=== PATIENT | male | born 1975 | race Caucasian/White ===

== ENCOUNTER → 2016-08-27 | Outpatient (CLI) | payer SELFPAY ==
[~2016-08-27] MED LIST: ALBU8.5H4 IH; AZTH250C PO; BUTE12CR TP; CLOT15CR4 TP; COLC0.6C3 PO; HYDR-3812 PO; HYDR-3816 PO; INDO50CA PO; KETO200C PO; METH4TAB PO; NAPR550T PO; OXYC-197 PO; PRCD5U PO; PRD20T PO; SULF1TAB35 PO
--- NOTE | 2016-08-27 17:35 | Diagnostic Imaging Report ---
CLINICAL INDICATION: Patient with right-sided facial droop x6 days. Patient unable to close right eye. No history of trauma. EXAM: Axial CT scan of the brain performed without IV contrast. COMPARISON: None. FINDINGS: There is slight loss of mcrae-white matter distinction involving the right parietal lobe and occipital lobe region. It is possible that this is artifactual. Otherwise, the remainder of the brain parenchyma is unremarkable. There is no evidence of acute cerebral infarct, intracranial hemorrhage, or gross mass effect. There is normal mcrae-white matter distinction. The brain parenchymal volume appears appropriate for patient's age. There is no significant midline shift or herniation. There is no evidence of hydrocephalus. The basal cisterns are unremarkable. The skull, extracranial soft tissue, and orbits are unremarkable. The paranasal sinuses are unremarkable. IMPRESSION: 1: There is slight loss of mcrae-white matter distinction involving the right parietal lobe and occipital lobe regions posteriorly. It is possible that this is artifactual from streak artifact. If there is continued concern for acute cerebral infarct, then MRI of the brain would better evaluate. 2: Otherwise, unremarkable CT scan of brain. Dictated by: Dictated on workstation # [id number]
== END ==
LOC: RAD 17:14
DX: R29.810 Facial weakness (principal)
CPT/HCPCS: 70450

== ENCOUNTER 2017-01-11 21:21 | Emergency (ER) | payer SELFPAY ==
[~2017-01-11] VITALS: Ht 170.2 cm; Wt 117.9 kg
--- OUTSIDE RECORDS SUMMARY | 2017-01-11 21:27 | XMS REPORT ---
Author Author DRE KOCH Organization [employer] Address Unknown Phone Unavailable Care Team Providers Care Clerical Office Name Role Phone DRE KOCH CP Unavailable Allergies, Adverse Reactions, Alerts Substance Reaction Event Type N.K.D.A. Info Not Available Non Drug Allergy Problems Problem Type Condition Code Onset Dates Condition Status Problem Acute pharyngitis 462 Active Problem Acute upper respiratory infections of unspecified site 465.9 Active Problem Right foot pain M79.671 Active Assessment Right foot pain M79.671 Active Problem Unspecified urticaria 708.9 Active Problem Dermatophytosis of foot 110.4 Active Medications Medication Code System Code Instructions Start Date End Date Status Dosage Indomethacin [facility] [address]-13 50 MG Orally Twice a day Dec 04, 2014 Dec 14, 2014 1 capsule with food Procedures Procedure Coding System Code Date Office Visit, Est Pt., Level 3 CPT-4 82287 Dec 04, 2014 VENIPUNCT, ROUTINE* CPT-4 30804 Dec 04, 2014 ASSAY OF BLOOD/URIC ACID CPT-4 49568 Dec 04, 2014 Vital Signs Date/Time: Dec 04, 2014 Temperature 97.7 F Weight 242 lbs Height 68.5 in BMI 36.26 Index Blood Pressure Diastolic 70 mmHg Blood Pressure Systolic 126 mmHg Cardiac Monitoring Heart Rate 75 bpm Results Name Result Date Reference Range Unit Abnormality Flag ROUTINE VENIPUNCTURE URIC ACID, SERUM Summary Purpose [employer] Submission
--- NOTE | 2017-01-11 21:40 | ED Cough/URI ---
General Chief Complaint: Cough/Cold/Flu Symptoms Stated Complaint: COUGH Nursing Triage Note: PATIENT STATES HE HAS BEEN COUGHING FOR 1.5 WEEKS. HEADACHE, PAIN WITH COUGHING , THROAT DISCOMFORT. Source: patient Exam Limitations: no limitations History of Present Illness Time seen by provider: 21:28 Initial Comments Here with report of cough over the last 1-1/2 weeks. Complains of sore throat and runny nose. Complains of chills but no fever. Denies nausea or vomiting. Not better in the interim and not better with sbzq-ort-trjhaww medicines. Timing/Duration: week, getting worse Severity/Quality: moderate, dry cough Prior Episodes/Possible Cause: occasional episodes Modifying Factors: Worse With Activity, Worse With Coughing Associated Symptoms: cough, fever/chills, headache, nasal congestion, nasal drainage, sore throat Allergies and Home Medications Allergies Coded Allergies: No Known Drug Allergies (Unverified , 04/02/12) Home Medications Butenafine HCl 12 Gm Cream..g., 12 GM TP BID, #1 Ref 1 Prescribed by: BRI SNYDER on 01/27/16 0344 Clotrimazole/Betamethasone Dip 15 Gm Cream..g., 15 GM TP UD, #1 Ref 0 apply to affected area bid Prescribed by: MATT COLLIER on 10/01/15 2340 Colchicine 0.6 Mg Capsule, 0.6 MG PO UD, #10 Prescribed by: BRI SNYDER on 01/27/16 0344 Hydrocodone/Acetaminophen 1 Each Tablet, 1-2 EACH PO Q4H, #20 Prescribed by: BRI SNYDER on 01/27/16 0321 Indomethacin 50 Mg Capsule, 50 MG PO TID, #30 Ref 0 Prescribed by: MATT COLLIER on 10/01/15 2338 Ketoprofen 200 Mg Cap24h.pel, 200 MG PO DAILY, #30 Prescribed by: BRI SNYDER on 01/27/16 0318 Methylprednisolone 4 Mg Tab.ds.pk, 4 MG PO UD, #1 Prescribed by: BRI SNYDER on 01/27/16 0344 Oxycodone HCl/Acetaminophen 1 Each Tablet, 1 EACH PO Q4H PRN for PAIN, #30 Ref 0 Prescribed by: MATT COLLIER on 10/01/15 2357 Sulfamethoxazole/Trimethoprim 1 Each Tablet, 1 EACH PO BID, #20 Prescribed by: BRI SNYDER on 01/27/16 0345 Constitutional: no symptoms reported, chills, No fever EENTM: nose congestion, throat pain Respiratory: cough, No short of breath Cardiovascular: No chest pain, No edema Gastrointestinal: No nausea, No vomiting Musculoskeletal: No back pain, muscle pain Skin: no symptoms reported Psychiatric/Neurological: Headache (headache is with the cough) Past Juufnif-Rbslhi-Oglxkg Hx Patient Social History Alcohol Use: Denies Use Recreational Drug Use: No Smoking Status: Never a Smoker Type Used: Smokeless Tobacco Recent Foreign Travel: No Contact w/Someone Who Travel: No Recent Infectious Disease Expo: No Recent Hopitalizations: No Seasonal Allergies Seasonal Allergies: No Surgeries History of Surgeries: Yes (kidney stones) Surgeries: Renal Respiratory History of Respiratory Disorde: No Cardiovascular History of Cardiac Disorders: No Neurological History of Neurological Disord: No Reproductive System Hx Reproductive Disorders: No Sexually Transmitted Disease: No HIV/AIDS: No Genitourinary History of Genitourinary Disor: Yes Genitourinary Disorders: Kidney Stones Musculoskeletal History of Musculoskeletal Dis: No Musculoskeletal Disorders: Gout Endocrine History of Endocrine Disorders: No Blood Transfusions Adverse Reaction to a Blood Tr: No Reviewed Nursing Assessment Reviewed/Agree w Nursing PMH: Yes Family Medical History Significant Family History: No Pertinent Family Hx Physical Exam Vital Signs Vital Sign - Last 12Hours 01/11/17 21:26 Temp 97.0 Pulse 67 Resp 20 B/P (MAP) 123/85 Pulse Ox 96 O2 Delivery Room Air Capillary Refill : Less Than 3 Seconds General Appearance: WD/WN, no apparent distress HEENT: pharyngeal erythema (mild), No tonsillar exudate, other (moderate bilateral clear rhinorrhea with moderate nasal congestion and erythema) Neck: full range of motion, supple Respiratory: lungs clear, normal breath sounds Cardiovascular: regular rate, rhythm, no murmur Gastrointestinal: non tender, soft Extremities: non-tender, normal inspection Neurologic/Psychiatric: alert, oriented x 3 Skin: normal color, warm/dry Progress/Results/Core Measures Suspected Sepsis Recent Fever Within 48 Hours: No Infection Criteria Present: None New/Unexplained Altered Menta: No Sepsis Screen: No Definite Risk Sepsis Diagnosis: SIRS Temperature:97.0 Pulse: 67 Respiratory Rate: 20 Blood Pressure 123 /85 Mean: 98 Results/Orders My Orders Orders - ADDY VELASQUEZ MD Chest Pa/Lat (2 View) (01/11/17 21:34) Prednisone Tablet (Deltasone Tablet) (01/11/17 21:45) Medications Given in ED Current Medications Medications Dose Ordered Sig/Tai Route Start Time Stop Time Status Last Admin Dose Admin Prednisone 40 mg ONCE ONCE PO 01/11/17 21:45 01/11/17 21:46 DC 01/11/17 21:40 40 MG Vital Signs/I&O Vital Sign - Last 12Hours 01/11/17 21:26 Temp 97.0 Pulse 67 Resp 20 B/P (MAP) 123/85 Pulse Ox 96 O2 Delivery Room Air Capillary Refill : Less Than 3 Seconds Blood Pressure Mean: 98 Progress Note : Progress Note Seen and evaluated. Chest x-ray ordered. Prednisone 40 mg by mouth ordered. Monitor patient. 2156: Chest x-ray shows no obvious acute infiltrate. Phenergan with codeine cough syrup 5 mL by mouth given. Discharged home with return precautions. Patient verbalize understanding instructions and agreement with plan. Diagnostic Imaging Diagonstic Imaging: Xray Plain Films/CT/US/NM/MRI: chest Comments No obvious acute infiltrate Reviewed: Reviewed by Me Departure Impression Impression: Primary Impression: Upper respiratory infection Qualified Codes: J06.9 - Acute upper respiratory infection, unspecified Additional Impression: Bronchitis Disposition: 01 HOME, SELF-CARE Condition: Stable Departure-Patient Inst. Decision time for Depature: 21:58 Referrals: [facility] (PCP/Family) Primary Care Physician Patient Instructions: Acute Bronchitis, Adult (DC), Viral Upper Respiratory Infection, Adult (DC) Add. Discharge Instructions: All discharge instructions reviewed with patient and/or family. Voiced understanding. Take medications as directed. Follow-up with your DrSanjeev in a few days for recheck. Return for worse pain, fever, vomiting, weakness, breathing problems or other concerns as needed. You may use Afrin nasal spray or the generic, 12 hour relief, 2 sprays to each nostril twice daily for 3 days only and then stop. Do not use for more than 3 days. Drink plenty of fluids. You may take Tylenol and/or ibuprofen as needed for fever or pain control. Scripts Promethazine HCl/Codeine (Promethazine-Codeine Syrup) 118 Ml Syrup 5 ML PO Q4H Y for COUGH, #60 ML Prov: ADDY VELASQUEZ MD 01/11/17 Prednisone (Prednisone) 20 Mg Tab 40 MG PO DAILY, #8 TAB 0 Refills Prov: ADDY VELASQUEZ MD 01/11/17 ADDY VELASQUEZ MD Jan 11, 2017 21:40
[2017-01-11] MEDS ORDERED: predniSONE 20 MG TAB PO ONE (21:45)
[2017-01-11] MEDS ORDERED: CODE118S2 PO (22:00)
[2017-01-11] MEDS ORDERED: PRD20T PO (22:00)
[2017-01-11] MEDS ORDERED: PROMETHAZINE/ CODEINE SYRUP 5 ML UDC PO ONE (22:00)
--- NOTE | 2017-01-11 22:00 | Diagnostic Imaging Report ---
INDICATION: Cough and congestion COMPARISON: 04/02/2012 FINDINGS: Frontal and lateral views of the chest demonstrate normal heart size and pulmonary vascularity. The lungs are clear. There are no signs of infiltrate, pleural effusions or pneumothoraces. The visualized osseous structures show no acute abnormalities. IMPRESSION: 1. No acute process. No signs of infiltrates, effusions or pneumothoraces. Dictated by: Dictated on workstation # [id number]
[2017-01-11 22:07] VITALS: BP 123/85
== END 2017-01-11 22:07 | disposition home or self-care (01) ==
LOC: EDUNIT# 21:21 → ER 21:23
DX: J06.9 Acute upper respiratory infection, unspecified (principal); J40 Bronchitis, not specified as acute or chronic; M10.9 Gout, unspecified; Z87.442 Personal history of urinary calculi
CPT/HCPCS: 71020; 99283

== ENCOUNTER 2017-06-11 19:17 | Emergency (ER) | payer SELFPAY ==
[~2017-06-11] VITALS: Ht 170.2 cm; Wt 113.4 kg
[~2017-06-11 19:17] MED LIST changes: +ACHD5005 PO; +CODE118S2 PO; +HYDR-34 PO; -HYDR-3812 PO; -HYDR-3816 PO
--- OUTSIDE RECORDS SUMMARY | 2017-06-11 19:22 | XMS REPORT ---
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 091524104 Problem Facial droop R29.810 Active 50355233 Problem Dermatophytosis of foot 110.4 Active 6804351 Problem Acute gout involving toe of left foot, unspecified cause M10.9 Active 117658714 Problem Right foot pain M79.671 Active [id number] ALLERGIES No Known Allergies ENCOUNTERS Encounter Location Date Diagnosis [place] [id number] [place] [id number] Aug, Follow-up examination Z09 ; 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 ; Headache, unspecified headache type R51 and Pain, eye, right H57.11 [place] [id number] [place] [address] [id number] Aug, Facial droop R29.810 ; Anesthesia of skin R20.0 and 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 [place] [address] [id number] Aug, [place] [address] [place] [id number] [place] [address] [id number] Jul, Acute gout involving toe of left foot, unspecified cause M10.9 [place] [id number] [place] [address] [id number] Nov, Right foot pain M79.671 [place] [id number] [place] [address] [id number] Aug, Physical exam, pre-employment V70.5 [facility] [address] [place] [id number] [place] [phone] May, [facility] [address] [facility] [id number] [place] [address] May, [facility] [address] [facility] [id number] [phone] Feb, [facility] [address] [facility] [id number], [place] [address] Feb, [facility] [address] [facility] [id number][place] [id number] Sep, [facility] [address] [facility] [id number], [place] [address] Sep, [facility] [address] [facility] [id number][place] [id number] June, IMMUNIZATIONS No Known Immunizations SOCIAL HISTORY Never Assessed REASON FOR VISIT Hx of gout. Pt c/o gout flare in left foot started about Tuesday Chasity YING PLAN OF CARE Activity Details Follow Up 6 Weeks Reason:GOUT VITAL SIGNS Height 68.5 in 2016-08-11 Weight 249 lbs 2016-08-11 Temperature 98 degrees Fahrenheit 2016-08-11 Heart Rate 94 bpm 2016-08-11 Respiratory Rate 18 2016-08-11 BMI 37.31 kg/m2 2016-08-11 Blood pressure systolic 138 mmHg 2016-08-11 Blood pressure diastolic 80 mmHg 2016-08-11 MEDICATIONS Medication Instructions Dosage Frequency Start Date End Date Duration Status Colchicine 0.6 MG Orally Once a day 2 tablet may take 1 tab 1 hr if no relief max 3 tab q 3 d 24h Jul, Active Allopurinol 100 mg Orally twice a day START AFTER CURRENT GOUT ATTACK SUBSIDES 1 tablet Jul, Active Indomethacin 50 mg Orally Twice a day 1 capsule with food or milk as needed for gout pain 12h Jul, Active RESULTS No Results PROCEDURES Procedure Date Ordered Result Body Site ASSAY OF BLOOD/URIC ACID August 11, 2016 SUZAN, ROUTINE* August 11, 2016 INSTRUCTIONS MEDICATIONS ADMINISTERED No Known Medications MEDICAL (GENERAL) HISTORY Type Description Date Medical History kidney stones Surgical History lithotripsy 2009
--- OUTSIDE RECORDS SUMMARY | 2017-06-11 19:22 | XMS REPORT ---
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 052228634 Problem Facial droop R29.810 Active 87215737 Problem Dermatophytosis of foot 110.4 Active 4601511 Problem Acute gout involving toe of left foot, unspecified cause M10.9 Active 016993681 Problem Right foot pain M79.671 Active 17209333 ALLERGIES No Known Allergies ENCOUNTERS Encounter Location Date Diagnosis [place] [id number] [place] [id number] Aug, Follow-up examination Z09 ; 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 ; Headache, unspecified headache type R51 and Pain, eye, right H57.[address] [place] [address] [id number] Aug, Facial droop R29.810 ; Anesthesia of skin R20.0 and 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 [place] [address] [id number] Aug, [place] [id number] [place] [address] [id number] Jul, Acute gout involving toe of left foot, unspecified cause M10.[address] [place] [address] [id number] Nov, Right foot pain M79.[address] [place] [address] [id number] Aug, Physical exam, pre-employment V70.5 [facility] [address] [place] [id number] [address] May, [facility] [address] [facility] [id number] [place] [address] May, [facility] [address] [place] [address] [id number] [phone] Feb, [facility] [address] [facility] [id number] [place] [address] Feb, [facility] [address] [facility] [place] [id number] [phone] Sep, [facility] [address] [facility] [id number] [place] [address] Sep, [facility] [address] [facility] [id number], [place] [phone] June, IMMUNIZATIONS No Known Immunizations SOCIAL HISTORY Never Assessed REASON FOR VISIT Right sided facial drooping x's 7 days, Had a severe headache the day the facial drooping started. Chasity YING PLAN OF CARE Activity Details Follow Up prn Reason: VITAL SIGNS Height 68.5 in 2016-08-27 Weight 250.1 lbs 2016-08-27 Temperature 98.1 degrees Fahrenheit 2016-08-27 Heart Rate 90 bpm 2016-08-27 Respiratory Rate 16 2016-08-27 BMI 37.47 kg/m2 2016-08-27 Blood pressure systolic 128 mmHg 2016-08-27 Blood pressure diastolic 78 mmHg 2016-08-27 MEDICATIONS Medication Instructions Dosage Frequency Start Date End Date Duration Status Acyclovir 800 MG Orally Twice a day 1 tablet 12h Aug, 10 day(s ) Active Allopurinol 100 mg Orally twice a day START AFTER CURRENT GOUT ATTACK SUBSIDES 1 tablet Jul, Active PredniSONE 20 mg Orally Once a day 1 tablet 24h Aug, Aug, 10 days Active RESULTS Name Result Date Reference Range CT Scan : Head/Brain w/o Contrast 2016-08-27 PROCEDURES No Known procedures INSTRUCTIONS MEDICATIONS ADMINISTERED No Known Medications MEDICAL (GENERAL) HISTORY Type Description Date Medical History kidney stones Surgical History lithotripsy 2009
--- OUTSIDE RECORDS SUMMARY | 2017-06-11 19:23 | XMS REPORT | Continuity of Care Document ---
Author Author [facility] Organization [facility] Address Unknown Phone Unavailable Allergies Active Description Code Type Severity Reaction Onset Reported/Identified Relationship to Patient Clinical Status Yes No Known Drug Allergies [id number] Drug Allergy Unknown N/A 04/02/2012 Medications There is no data. Problems Date Dx Coded Attending Type Code Diagnosis Diagnosed By 07/07/2011 LAURA ALSTON DO 110.4 DERMATOPHYTOSIS OF FOOT 07/07/2011 DRE KOCH APRN 110.4 DERMATOPHYTOSIS OF FOOT 04/02/2012 Ot 486 PNEUMONIA, ORGANISM NOS 04/02/2012 Ot 784.0 HEADACHE 04/02/2012 Ot 786.2 COUGH 09/23/2012 RODNEY HENDERSON MD Ot 729.5 PAIN IN LIMB 09/23/2012 RODNEY HENDERSON MD Ot 729.81 SWELLING OF LIMB 09/19/2013 LAURA ALSTON DO 462 PHARYNGITIS ACUTE 09/19/2013 LAURA ALSTON DO 465.9 UPPER RESPIRATORY INFECTION 09/19/2013 DRE KOCH APRN 462 PHARYNGITIS ACUTE 09/19/2013 DRE KOCH APRN 465.9 UPPER RESPIRATORY INFECTION 03/05/2014 DRE KOCH APRN 708.9 URTICARIA/HIVES UNSPEC 10/01/2015 MATT JAQUEZ Ot M10.9 GOUT, UNSPECIFIED 10/01/2015 MATT JAQUEZ Ot M25.571 PAIN IN RIGHT ANKLE AND JOINTS OF RIGHT 10/03/2015 MATT JAQUEZ Ot M10.9 GOUT, UNSPECIFIED 10/03/2015 MATT JAQUEZ Ot M25.571 PAIN IN RIGHT ANKLE AND JOINTS OF RIGHT 01/27/2016 BRI SNYDER DO Ot B35.3 TINEA PEDIS 01/27/2016 BRI SNYDER DO Ot M10.071 IDIOPATHIC GOUT, RIGHT ANKLE AND FOOT 01/27/2016 BRI SNYDER DO Ot M25.571 PAIN IN RIGHT ANKLE AND JOINTS OF RIGHT 01/28/2016 BRI SNYDER DO Ot B35.3 TINEA PEDIS 01/28/2016 BRI SNYDER DO Ot M10.071 IDIOPATHIC GOUT, RIGHT ANKLE AND FOOT 01/28/2016 BRI SNYDER DO Ot M25.571 PAIN IN RIGHT ANKLE AND JOINTS OF RIGHT 08/30/2016 OTHER, UNLISTED Ot R29.810 FACIAL WEAKNESS 01/11/2017 OTHER, UNLISTED Ot R29.810 FACIAL WEAKNESS Procedures Code Description [place] [address] STREP A (IN-HOUSE) 09/19/2013 Results Test Result Range Serum or plasma uric acid measurement (mass/volume) - 10/01/15 22:57 Serum or plasma uric acid measurement (mass/volume) 9.4 mg/dL 2.6-7.2 Complete blood count (CBC) with automated white blood cell (WBC) differential - 01/27/16 02:50 Blood leukocytes automated count (number/volume) 9.3 10*3/uL 4.3-11.0 Blood erythrocytes automated count (number/volume) 5.20 10*6/uL 4.35-5.85 Venous blood hemoglobin measurement (mass/volume) 14.7 g/dL 13.3-17.7 Blood hematocrit (volume fraction) 45 % 40-54 Automated erythrocyte mean corpuscular volume 86 [foz_us] 80-99 Automated erythrocyte mean corpuscular hemoglobin (mass per erythrocyte) 28 pg 25-34 Automated erythrocyte mean corpuscular hemoglobin concentration measurement ( mass/volume) 33 g/dL 32-36 Automated erythrocyte distribution width ratio 14.2 % 10.0-14.5 Automated blood platelet count (count/volume) 220 10*3/uL 130-400 Automated blood platelet mean volume measurement 10.2 [foz_us] 7.4-10.4 Automated blood neutrophils/100 leukocytes 65 % 42-75 Automated blood lymphocytes/100 leukocytes 25 % 12-44 Blood monocytes/100 leukocytes 9 % 0-12 Automated blood eosinophils/100 leukocytes 2 % 0-10 Automated blood basophils/100 leukocytes 0 % 0-10 Blood neutrophils automated count (number/volume) 6.0 10*3 1.8-7.8 Blood lymphocytes automated count (number/volume) 2.3 10*3 1.0-4.0 Blood monocytes automated count (number/volume) 0.8 10*3 0.0-1.0 Automated eosinophil count 0.2 10*3/uL 0.0-0.3 Automated blood basophil count (count/volume) 0.0 10*3/uL 0.0-0.1 Blood lactic acid measurement (moles/volume) - 01/27/16 02:50 Blood lactic acid measurement (moles/volume) 1.5 mmol/L 0.5-2.0 Comprehensive metabolic panel - 01/27/16 02:50 Serum or plasma sodium measurement (moles/volume) 139 mmol/L 135-145 Serum or plasma potassium measurement (moles/volume) 4.2 mmol/L 3.6-5.0 Serum or plasma chloride measurement (moles/volume) 105 mmol/L 98-107 Carbon dioxide 22 mmol/L 21-32 Serum or plasma anion gap determination (moles/volume) 12 mmol/L 5-14 Serum or plasma urea nitrogen measurement (mass/volume) 12 mg/dL 7-18 Serum or plasma creatinine measurement (mass/volume) 0.93 mg/dL 0.60-1.30 Serum or plasma urea nitrogen/creatinine mass ratio 13 NRG Serum or plasma creatinine measurement with calculation of estimated glomerular filtration rate > NRG Serum or plasma glucose measurement (mass/volume) 100 mg/dL 70-105 Serum or plasma calcium measurement (mass/volume) 9.5 mg/dL 8.5-10.1 Serum or plasma total bilirubin measurement (mass/volume) 0.3 mg/dL 0.1-1.0 Serum or plasma alkaline phosphatase measurement (enzymatic activity/volume) 101 U/L 40-136 Serum or plasma aspartate aminotransferase measurement (enzymatic activity/ volume) 27 U/L 5-34 Serum or plasma alanine aminotransferase measurement (enzymatic activity/volume ) 29 U/L 0-55 Serum or plasma protein measurement (mass/volume) 8.3 g/dL 6.4-8.2 Serum or plasma albumin measurement (mass/volume) 4.6 g/dL 3.2-4.5 Serum or plasma uric acid measurement (mass/volume) - 01/27/16 02:50 Serum or plasma uric acid measurement (mass/volume) 7.9 mg/dL 2.6-7.2 Erythrocyte sedimentation rate by westergren method - 01/27/16 02:50 Erythrocyte sedimentation rate by westergren method 9 mm 0-15 Bacterial blood culture - 01/27/16 02:50 Bacterial blood culture NG NRG Bacterial blood culture - 01/27/16 03:07 Bacterial blood culture NG NRG Encounters ACCT No. Visit Date/Time Discharge Status Pt. Type Provider Facility Loc./Unit Complaint [id number] 01/11/2017 21:23:00 01/11/2017 22:07:00 DIS Emergency EVA BRENARD, ADDY Sepulveda [facility] ER COUGH [id number] 08/27/2016 17:14:00 08/27/2016 23:59:59 CLS Outpatient OTHER, UNLISTED [facility] RAD FACIAL DROOP [id number] 01/27/2016 02:22:00 01/27/2016 03:45:00 DIS Emergency BRI SNYDER DO [facility] ER RT FOOT PAIN,GOUT [id number] 10/01/2015 22:06:00 10/01/2015 23:53:00 DIS Emergency MATT JAQUEZ [facility] ER RIGHT FOOT PAIN [id number] 09/23/2012 20:08:00 09/23/2012 21:16:00 DIS Emergency RODNEY HENDERSON MD [facility] ER R FOOT PAIN [id number] 04/02/2012 19:37:00 Document Registration [id number] 03/05/2014 09:05:00 03/05/2014 23:59:59 CLS Outpatient DRE KOCH APRN [id number] 09/19/2013 15:21:00 09/19/2013 23:59:59 CLS Outpatient LAURA ALSTON DO
[2017-06-11] MEDS ORDERED: ALLOPURINOL (19:33)
[2017-06-11] MEDS ORDERED: ORPHENADRINE 60 MG/2 ML (NORFLEX) AMP IM STA (20:05)
[2017-06-11] MEDS ORDERED: KETOROLAC 60 MG/2 ML VIAL IM STA (20:05)
--- NOTE | 2017-06-11 20:13 | ED Back Pain ---
General Chief Complaint: Lower Extremity Stated Complaint: HIP PAIN RADIATING TO KNEE AND BACK,NO INJ Nursing Triage Note: PT TO ED 6 W/ C/O LT HIP PAIN THAT RADIATES TO HIS LT KNEE ET ACROSS HIS LOWER BACK. ONSET X2-3 DAYS. NO KNOWN INJURY Nursing Sepsis Screen: No Definite Risk Source of Information: Patient Exam Limitations: No Limitations History of Present Illness Date Seen by Provider: Jun 11, 2017 Time Seen by Provider: 19:40 Initial Comments 42-year-old male patient presents to the emergency department with complaints of low back pain radiating down the left posterior buttock and left lateral thigh for 2-3 days. Location: Lumbar Spine, Paraspinous Muscles Timing/Duration: 2-3 Days, Other (waxes and wanes) Pain/Injury Location: Back Radiation: Other Method of Injury: Other (denies recent injury. States he did injure his back at the age of 16.) Modifying Factors: Worse With Other (worse with sitting and standing for long periods) Associated Symptoms: muscle spasms; No fever, No weakness, No numbness in legs/ feet, No tingling in legs/feet, No sensory/motor loss; lower back pain; No loss of bladder control, No loss of bowel control Allergies and Home Medications Allergies Coded Allergies: No Known Drug Allergies (Unverified , 04/02/12) Home Medications Cyclobenzaprine HCl 10 Mg Tablet, 10 MG PO Q8H PRN for SPASMS Prescribed by: MATT COLLIER on 06/11/172030 Naproxen 500 Mg Tablet, 500 MG PO BID Prescribed by: MATT COLLIER on 06/11/172030 Prednisone 20 Mg Tab, 40 MG PO DAILY Prescribed by: MATT COLLIER on 06/11/172030 Patient Home Medication List Home Medication List Reviewed: Yes Constitutional: No chills, No diaphoresis, No fever, No malaise EENTM: no symptoms reported Respiratory: no symptoms reported Cardiovascular: no symptoms reported Gastrointestinal: No abdominal pain, No constipation, No diarrhea, No loss of appetite, No melena, No nausea, No vomiting Genitourinary: no symptoms reported Musculoskeletal: see HPI Skin: no symptoms reported Psychiatric/Neurological: Denies Numbness, Denies Paresthesia, Denies Tingling , Denies Weakness All Other Systems Reviewed Negative Unless Noted: Yes (Negative excepted noted.) Past Skqumqv-Imikqv-Mrvdzx Hx Patient Social History Alcohol Use: Occasionally Uses Recreational Drug Use: No Smoking Status: Never a Smoker Type Used: Smokeless Tobacco Recent Foreign Travel: No Contact w/Someone Who Travel: No Recent Infectious Disease Expo: No Recent Hopitalizations: No Physical Abuse: No Sexual Abuse: No Mistreated: No Fear: No Seasonal Allergies Seasonal Allergies: No Past Medical History Surgeries: Yes (kidney stones) Ear Surgery, Renal Respiratory: No Cardiac: No Neurological: No Reproductive Disorders: No Sexually Transmitted Disease: No HIV/AIDS: No Genitourinary: Yes Kidney Stones Gastrointestinal: No Musculoskeletal: No Gout Endocrine: No Cancer: No Psychosocial: No Nursing Suicide Risk Score: 0 Integumentary: No Blood Disorders: No Adverse Reaction/Blood Tranf: No Family Medical History Reviewed Nursing Family Hx No Pertinent Family Hx Physical Exam Vital Signs Vital Signs - First Documented 06/11/17 19:20 Temp 97.9 Pulse 109 Resp 20 B/P (MAP) 139/97 (111) Pulse Ox 99 O2 Delivery Room Air Capillary Refill : Less Than 3 Seconds General Appearance: No Apparent Distress, WD/WN Neck: Full Range of Motion, Normal Inspection, Non Tender, Supple Cardiovascular: Regular Rate, Rhythm, No Edema, No Murmur, Normal Peripheral Pulses Respiratory: Lungs Clear, Normal Breath Sounds, No Accessory Muscle Use, No Respiratory Distress Gastrointestinal: Normal Bowel Sounds, No Organomegaly, No Pulsatile Mass, Non Tender, Soft Back: Normal Inspection; No Decreased Range of Motion; Muscle Spasm (bilateral lumbar paraspinous muscle spasm with left greater than right.), Vertebral Tenderness (mild lumbar vertebral tenderness at the L4 to S1 levels. No deformity or step-off noted. No swelling or evidence of trauma.) Extremity: Normal Capillary Refill, Normal Inspection, Normal Range of Motion, No Calf Tenderness, No Pedal Edema, Other (mild tenderness to palpation of the left buttock and left lateral thigh without evidence of trauma or swelling.) Neurologic/Psychiatric: Alert, Oriented x3, No Motor/Sensory Deficits, Normal Mood/Affect Skin: Normal Color, Warm/Dry Progress/Results/Core Measures My Orders Orders - MATT COLLIER Ketorolac Injection (Toradol Injection) (06/11/17 20:05) Orphenadrine Injection (Norflex Injectio (06/11/17 20:05) Prednisone Tablet (Deltasone Tablet) (06/11/17 20:15) Rx-Naproxen (Rx-Naprosyn) (06/11/17 20:34) Rx-Cyclobenzaprine Tablet (Rx-Flexeril T (06/11/17 20:34) Vital Signs/I&O 06/11/17 19:20 Temp 97.9 Pulse 109 Resp 20 B/P (MAP) 139/97 (111) Pulse Ox 99 O2 Delivery Room Air Blood Pressure Mean: 111 Departure Impression Primary Impression: Lumbar radiculopathy Disposition: HOME, SELF-CARE Condition: Improved Departure-Patient Inst. Decision time for Depature: 20:27 Referrals: [facility] (PCP/Family) Primary Care Physician Patient Instructions: Radiculopathy (DC) Add. Discharge Instructions: All discharge instructions reviewed with patient and/or family. Voiced understanding. Medications as instructed. Tylenol extra strength over-the- counter as directed for pain. Use a heating pad or pack as needed for pain. Avoid heavy lifting, pushing, pulling, twisting, bending, or climbing 3-5 days. Avoid sitting on hard surfaces. Follow-up with your family practitioner for recheck as an outpatient. Your family practitioner may want to order an MRI to further evaluate the lumbar spine as an outpatient. Consider seeing a chiropractor and/or massage therapist. Return to the emergency department for worsened symptoms, numbness in the genitals, bowel incontinence, bladder incontinence, or any other concerns. Scripts Naproxen (Naprosyn) 500 Mg Tablet 500 MG PO BID, #14 TAB 0 Refills Prov: MATT COLLIER 06/11/17 Cyclobenzaprine HCl (Cyclobenzaprine HCl) 10 Mg Tablet 10 MG PO Q8H PRN for SPASMS, #10 TAB 0 Refills Prov: MATT COLLIER 06/11/17 Prednisone (Prednisone) 20 Mg Tab 40 MG PO DAILY, #8 TAB 0 Refills Prov: MATT COLLIER 06/11/17 MATT COLLIER Jun 11, 2017 20:13
[2017-06-11] MEDS ORDERED: predniSONE 20 MG TAB PO ONE (20:15)
[2017-06-11] MEDS ORDERED: NAPR-1071 PO (20:31)
[2017-06-11] MEDS ORDERED: CYCL10TA9 PO (20:31)
[2017-06-11] MEDS ORDERED: PRD20T PO (20:31)
[2017-06-11] MEDS ORDERED: RX-CYCLOBENZAPRINE 10 MG (FLEXERIL) TAB PPK#3 PO STA (20:34)
[2017-06-11] MEDS ORDERED: RX-NAPROXEN (NAPROSYN) 250 MG TAB PPK#4 PO STA (20:34)
[2017-06-11 20:47] VITALS: BP 0/0
== END 2017-06-11 20:47 | disposition home or self-care (01) ==
LOC: EDUNIT# 19:17 → ER 19:18
DX: M54.16 Radiculopathy, lumbar region (principal); M10.9 Gout, unspecified; Z87.442 Personal history of urinary calculi; Z98.890 Other specified postprocedural states
CPT/HCPCS: 99283

== ENCOUNTER 2017-08-21 11:55 | Emergency (ER) | payer SELFPAY ==
[~2017-08-21] VITALS: Ht 170.2 cm; Wt 113.4 kg
[~2017-08-21 11:55] MED LIST changes: +ALLOPURINOL; +CEPH-507 PO; -CODE118S2 PO; +CODE118S4 PO; +CYCL10TA9 PO; +HYDR-757 PO; -INDO50CA PO; +INDO50CA11 PO; +NAPR-1071 PO
[2017-08-21 12:10] VITALS: BP 126/87
--- NOTE | 2017-08-21 12:16 | ED Suture Removal/Wound Check ---
Suture/Wound Re-check Suture Removal/Wound Recheck : Progress Patient returns to the emergency department for suture removal. Physical Exam Vital Signs Vital Signs - First Documented 08/21/17 08/21/17 12:03 12:10 Pulse 73 Resp 18 B/P (MAP) 126/87 Pulse Ox 99 O2 Delivery Room Air Capillary Refill : General Appearance: WD/WN, no apparent distress Extremities: normal capillary refill, other (swelling and tenderness of the distal left third finger with sutures intact. No evidence of cellulitis.) Skin: normal color, warm/dry, other (swelling and tenderness of the distal left third finger with sutures intact. No evidence of cellulitis.) Departure Communication (Admissions) Patient seen and evaluated. Sutures removed at the time of exam without difficulty. Mastisol and Steri-Strips applied followed by an aluminum finger splint. Impression Primary Impression: Encounter for removal of sutures Disposition: HOME, SELF-CARE Condition: Improved Departure-Patient Inst. Decision time for Depature: 12:06 Referrals: [facility] (PCP) Primary Care Physician Patient Instructions: SUTURE REMOVAL-UNCOMPLICATED Add. Discharge Instructions: All discharge instructions reviewed with patient and/or family. Voiced understanding. Shower with antibacterial soap beginning tomorrow morning. Wear the finger splint until released by the orthopedic surgeon. Return to the emergency department for worsened symptoms or any other concerns. MATT COLLIER Aug 21, 2017 12:16
== END 2017-08-21 12:10 | disposition home or self-care (01) ==
LOC: EDUNIT# 11:55 → ER 11:56
DX: S61.213D Laceration without foreign body of left middle finger without damage to nail, subsequent encounter (principal); X58.XXXD Exposure to other specified factors, subsequent encounter

== ENCOUNTER 2017-11-15 01:30 | Emergency (ER) | payer OTHER ==
[~2017-11-15] VITALS: Ht 170.2 cm; Wt 117.0 kg
[~2017-11-15 01:30] MED LIST changes: +HYDR-4226 PO; -HYDR-757 PO; -OXYC-197 PO; +OXYC1TAB87 PO
--- OUTSIDE RECORDS SUMMARY | 2017-11-15 01:36 | XMS REPORT ---
Author Author WANDY PÑEA Organization [facility] Address [address] [place] [address] Care Team Providers Care Java Sdet Name Role Phone WANDY PEÑA Unavailable PROBLEMS Unknown Problems ALLERGIES No Known Allergies ENCOUNTERS Encounter Location Date Diagnosis [place] [id number] [place] [address] [id number] Sep, Open displaced fracture of distal phalanx of left middle finger, sequela S62.633S [place] [id number] [place] [address] [id number] Jul, Open displaced fracture of distal phalanx of left middle finger with routine healing, subsequent encounter S62.633D [place] [id number] [place] [address] [id number] June, Cough R05 ; Acute non-recurrent frontal sinusitis J01.10 and Wheeze R06.2 [place] [id number] [place] [address] [id number] Aug, Follow-up examination Z09 ; 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 ; Headache, unspecified headache type R51 and Pain, eye, right H57.[address] [place] [address] [id number] Aug, Facial droop R29.810 ; Anesthesia of skin R20.0 and 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 [place] [id number] [place] [address] [id number] Aug, [address] [id number] Jul, Acute gout involving toe of left foot, unspecified cause M10.9 [place] [id number] [place] [address] [id number] Nov, Right foot pain M79.671 [facility] [id number] [id number] Aug, Physical exam, pre-employment V70.5 [facility] [address] [address] May, [facility] [address], [place] [address] May, [facility] [id number] [id number] Feb, [facility] [id number] [place] [phone] Feb, [facility] [id number] [place] [address] [id number] Sep, [facility] [address], [place] [address] Sep, [facility] [address] [place] [address] [id number] June, IMMUNIZATIONS No Known Immunizations SOCIAL HISTORY Never Assessed REASON FOR VISIT Chest congestion/cough/sore throat x 1 week, ear pain starting today. nunu Maya PLAN OF CARE Activity Details Follow Up if s/s not improving with PCP or in Clinic Reason: VITAL SIGNS Height 68.5 in 2017-06-28 Weight 248.4 lbs 2017-06-28 Temperature 98.1 degrees Fahrenheit 2017-06-28 Heart Rate 92 bpm 2017-06-28 Respiratory Rate 18 2017-06-28 Oximetry 90 % 2017-06-28 BMI 37.22 kg/m2 2017-06-28 Blood pressure systolic 120 mmHg 2017-06-28 Blood pressure diastolic 80 mmHg 2017-06-28 MEDICATIONS Medication Instructions Dosage Frequency Start Date End Date Duration Status Colchicine 0.6 MG Orally Once a day 2 tablet may take 1 tab 1 hr if no relief max 3 tab q 3 d 24h 28 Jul, 2016 Not-Taking ProAir HFA 108 (90 Base) MCG/ACT Inhalation every 4- 6 hrs 2 puffs as needed June, 30 days Active Acyclovir 800 MG Orally Twice a day 1 tablet 12h Aug, 10 day(s ) Not-Taking Benzonatate 200 mg Orally Three times a day as needed for cough 1 capsule June, June, 07 days Active Azithromycin 250 MG Orally Once a day 2 tablets on the first day, then 1 tablet daily for 4 days 24h June, June, 5 day(s) Active PredniSONE 10 mg Orally Once a day 2 tablet 24h June, June, 05 days Active Allopurinol 100 mg Orally twice a day START AFTER CURRENT GOUT ATTACK SUBSIDES 1 tablet Jul, Not-Taking RESULTS No Results PROCEDURES No Known procedures INSTRUCTIONS MEDICATIONS ADMINISTERED No Known Medications MEDICAL (GENERAL) HISTORY Type Description Date Medical History kidney stones Surgical History lithotripsy 2009
--- OUTSIDE RECORDS SUMMARY | 2017-11-15 01:36 | XMS REPORT ---
Author Author DRE KOCH [facility] Address [address] [place] [address] Care Team Providers Care Rhinologist Name Role Phone DRE KOCH Unavailable PROBLEMS Type Condition ICD9-CM Code RPI00-UE Code Onset Dates Condition Status SNOMED Code Problem Acute gout of right foot, unspecified cause M10.9 Active 259087350 ALLERGIES No Known Allergies ENCOUNTERS Encounter Location Date Diagnosis [place] [id number] [place] [address] [id number] Oct, Acute gout of right foot, unspecified cause M10.9 [address] [id number] [place] [address] [id number] Sep, Open displaced fracture of distal phalanx of left middle finger, sequela S62.633S [place] [id number] [place] [address] [id number] Jul, Open displaced fracture of distal phalanx of left middle finger with routine healing, subsequent encounter S62.633D [place] [id number] [place] [address] [id number] June, Cough R05 ; Acute non-recurrent frontal sinusitis J01.10 and Wheeze R06.[address] [place] [id number] [place] [address] [id number] Aug, Follow-up examination Z09 ; 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 ; Headache, unspecified headache type R51 and Pain, eye, right H57.11 [address] [id number] [place] [address] [id number] 14 Aug, 2016 Facial droop R29.810 ; Anesthesia of skin R20.0 and 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 [place] [id number] [place] [address] [id number] Aug, [place] [id number] [id number] Jul, Acute gout involving toe of left foot, unspecified cause M10.9 [facility] [id number] [place] [address] [id number] Nov, Right foot pain M79.671 [facility] [id number] [id number] Aug, Physical exam, pre-employment V70.5 [facility] [id number] [place] [address] May, [facility] [id number] [place] [address] May, [facility] [address] [place] [address] [id number] Feb, [facility] [id number] [place] [address] Feb, [address] [place] [address] [id number] Sep, [facility] [address] [place] [address] Sep, [address] [place] [address] [id number] June, IMMUNIZATIONS No Known Immunizations SOCIAL HISTORY Never Assessed REASON FOR VISIT finger follow up. Is concerned about the way its healing, has some tingling in fingers Chasity YING PLAN OF CARE Activity Details Follow Up prn Reason: VITAL SIGNS Height 68.5 in 2017-09-14 Weight 250.1 lbs 2017-09-14 Temperature 97 degrees Fahrenheit 2017-09-14 Heart Rate 82 bpm 2017-09-14 Respiratory Rate 16 2017-09-14 BMI 37.47 kg/m2 2017-09-14 Blood pressure systolic 128 mmHg 2017-09-14 Blood pressure diastolic 70 mmHg 2017-09-14 MEDICATIONS Medication Instructions Dosage Frequency Start Date End Date Duration Status Allopurinol 100 mg Orally twice a day START AFTER CURRENT GOUT ATTACK SUBSIDES 1 tablet Jul, Not-Taking ProAir HFA 108 (90 Base) MCG/ACT Inhalation every 4- 6 hrs 2 puffs as needed 15 May, 2018 30 days Not-Taking Acyclovir 800 MG Orally Twice a day 1 tablet 12h Aug, 10 day(s ) Not-Taking Colchicine 0.6 MG Orally Once a day 2 tablet may take 1 tab 1 hr if no relief max 3 tab q 3 d 24h Jul, Not-Taking RESULTS No Results PROCEDURES No Known procedures INSTRUCTIONS MEDICATIONS ADMINISTERED No Known Medications MEDICAL (GENERAL) HISTORY Type Description Date Medical History kidney stones Surgical History lithotripsy 2009
--- OUTSIDE RECORDS SUMMARY | 2017-11-15 01:36 | XMS REPORT ---
Author Author WANDY PEÑA Organization [facility] Address [address] [place] [address] Care Team Providers Care Information Security Analyst Name Role Phone WANDY PEÑA Unavailable PROBLEMS Type Condition ICD9-CM Code RAI04-HD Code Onset Dates Condition Status SNOMED Code Problem Acute gout of right foot, unspecified cause M10.9 Active [id number] ALLERGIES No Known Allergies ENCOUNTERS Encounter Location Date Diagnosis [place] [id number] [place] [address] [id number] Oct, Acute gout of right foot, unspecified cause M10.9 [place] [id number] [place] [address] [id number] Sep, Open displaced fracture of distal phalanx of left middle finger, sequela S62.633S [place] [id number] [place] [address] [id number] Jul, Open displaced fracture of distal phalanx of left middle finger with routine healing, subsequent encounter S62.633D [place] [id number] [place] [address] [id number] June, Cough R05 ; Acute non-recurrent frontal sinusitis J01.10 and Wheeze R06.2 [place] [id number] [place] [address] [id number] Aug, Follow-up examination Z09 ; 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 ; Headache, unspecified headache type R51 and Pain, eye, right H57.11 [address] [id number] [place] [address] [id number] Aug, Facial droop R29.810 ; Anesthesia of skin R20.0 and 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 [place] [id number] [place] [address] [id number] Aug, [facility] [address] [place] [id number] [id number] Jul, Acute gout involving toe of left foot, unspecified cause M10.9 [facility] [id number] [id number] Nov, Right foot pain M79.671 [facility] [id number] [id number] Aug, Physical exam, pre-employment V70.5 [facility] [id number] [place] [address] May, [facility] [id number] [place] [address] May, [facility] [id number] [id number] Feb, [facility] [id number] [place] [address] Feb, [facility] [id number] [phone] Sep, [facility] [id number] [place] [phone] Sep, [facility] [address] [id number] June, IMMUNIZATIONS No Known Immunizations SOCIAL HISTORY Never Assessed REASON FOR VISIT ER f/u- Had lac repair left 3rd finger on Tuesday at [facility]. Fx finger. Has Ortho f/u on 08/[address] PLAN OF CARE Activity Details Follow Up prn, keep ortho fu appt in [address] Lombardi. Reason: VITAL SIGNS Height 68.5 in 2017-08-12 Weight 250.1 lbs 2017-08-12 Temperature 96.9 degrees Fahrenheit 2017-08-12 Heart Rate 88 bpm 2017-08-12 Respiratory Rate 16 2017-08-12 BMI 37.47 kg/m2 2017-08-12 Blood pressure systolic 122 mmHg 2017-08-12 Blood pressure diastolic 70 mmHg 2017-08-12 MEDICATIONS Medication Instructions Dosage Frequency Start Date End Date Duration Status Allopurinol 100 mg Orally twice a day START AFTER CURRENT GOUT ATTACK SUBSIDES 1 tablet Jul, Not-Taking ProAir HFA 108 (90 Base) MCG/ACT Inhalation every 4- 6 hrs 2 puffs as needed June, 30 days Not-Taking Acyclovir 800 MG Orally [...]
--- OUTSIDE RECORDS SUMMARY | 2017-11-15 01:37 | XMS REPORT | Continuity of Care Document ---
Author Author [facility] Address Unknown Phone Unavailable Allergies Active Description Code Type Severity Reaction Onset Reported/Identified Relationship to Patient Clinical Status Yes No Known Drug Allergies [id number] Drug Allergy Unknown N/A 04/02/2012 Medications There is no data. Problems Date Dx Coded Attending Type Code Diagnosis Diagnosed By 07/07/2011 LAURA ALSTON DO 110.4 DERMATOPHYTOSIS OF FOOT 07/07/2011 RDE KOCH APRN 110.4 DERMATOPHYTOSIS OF FOOT 04/02/2012 [...] 01/11/2017 OTHER, UNLISTED Ot R29.810 FACIAL WEAKNESS 06/11/2017 MATT JAQUEZ Ot M10.9 GOUT, UNSPECIFIED 06/11/2017 MATT JAQUEZ Ot M54.16 RADICULOPATHY, LUMBAR REGION 06/11/2017 MATT JAQUEZ Ot M54.5 LOW BACK PAIN 06/11/2017 MATT JAQUEZ Ot Z87.442 PERSONAL HISTORY OF URINARY CALCULI 06/11/2017 MATT JAQUEZ Ot Z98.890 OTHER SPECIFIED POSTPROCEDURAL STATES 06/13/2017 MATT JAQUEZ Ot M10.9 GOUT, UNSPECIFIED 06/13/2017 MATT JAQUEZ L Ot M54.16 RADICULOPATHY, LUMBAR REGION 06/13/2017 MATT JAQUEZ Ot M54.5 LOW BACK PAIN 06/13/2017 MATT JAQUEZ Ot Z87.442 PERSONAL HISTORY OF URINARY CALCULI 06/13/2017 MATT JAQUEZ Ot Z98.890 OTHER SPECIFIED POSTPROCEDURAL STATES 06/17/2017 MATT JAQUEZ Ot M10.9 GOUT, UNSPECIFIED 06/17/2017 MATT JAQUEZ Ot M54.16 RADICULOPATHY, LUMBAR REGION 06/17/2017 MATT JAQUEZ Ot M54.5 LOW BACK PAIN 06/17/2017 MATT JAQUEZ Ot Z87.442 PERSONAL HISTORY OF URINARY CALCULI 06/17/2017 MATT JAQUEZ Ot Z98.890 OTHER SPECIFIED POSTPROCEDURAL STATES 08/08/2017 SPENCER ROMAN APRN Ot M10.9 GOUT, UNSPECIFIED 08/08/2017 SPENCER ROMAN APRN Ot S61.213A LACERATION W/O FB OF L MID FINGER W/O DA 08/08/2017 SPENCER ROMAN APRN Ot S62.633A DISP FX OF DISTAL PHALANX OF LEFT MIDDLE 08/08/2017 SPENCER ROMAN APRN Ot W23.0XXA CAUGHT, CRUSH, JAMMED, OR PINCHED BETW M 08/08/2017 SPENCER ROMAN APRN Ot Z23 ENCOUNTER FOR IMMUNIZATION 08/08/2017 SPENCER ROMAN APRN Ot 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 08/08/2017 SPENCER ROMAN APRN Ot Z87.442 PERSONAL HISTORY OF URINARY CALCULI 08/10/2017 SPENCER ROMAN APRN Ot M10.9 GOUT, UNSPECIFIED 08/10/2017 SPENCER ROMAN APRN Ot S61.213A LACERATION W/O FB OF L MID FINGER W/O DA 08/10/2017 SPENCER ROMAN APRN Ot S62.633A DISP FX OF DISTAL PHALANX OF LEFT MIDDLE 08/10/2017 SPENCER ROMAN APRN Ot W23.0XXA CAUGHT, CRUSH, JAMMED, OR PINCHED BETW M 08/10/2017 SPENCER ROMAN APRN Ot Z23 ENCOUNTER FOR IMMUNIZATION 08/10/2017 SPENCER ORMAN APRN Ot 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 08/10/2017 SPENCER ROMAN APRN Ot Z87.442 PERSONAL HISTORY OF URINARY CALCULI 08/10/2017 MARILIN CANTRELL Ot M10.9 GOUT, UNSPECIFIED 08/10/2017 MARILIN CANTRELL Ot S61.213D LACERATION W/O FB OF L MID FINGER W/O DA 08/10/2017 MARILIN CANTRELL Ot X58.XXXD EXPOSURE TO OTHER SPECIFIED FACTORS, SUB 08/10/2017 MARILIN CANTRELL Ot 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 08/10/2017 MARILIN CANTRELL Ot Z87.442 PERSONAL HISTORY OF URINARY CALCULI 08/16/2017 MARILIN CANTRELL Ot M10.9 GOUT, UNSPECIFIED 08/16/2017 MARILIN CANTRELL Ot S61.213D LACERATION W/O FB OF L MID FINGER W/O DA 08/16/2017 ÓSCAR MARILIN Ot X58.XXXD EXPOSURE TO OTHER SPECIFIED FACTORS, SUB 08/16/2017 MARILIN CANTRELL Ot 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 08/16/2017 ÓSCAR MARILIN Ot Z87.442 PERSONAL HISTORY OF URINARY CALCULI 08/21/2017 MATT JAQUEZ Ot S61.213D LACERATION W/O FB OF L MID FINGER W/O DA 08/21/2017 MATT JAQUEZ Ot X58.XXXD EXPOSURE TO OTHER SPECIFIED FACTORS, SUB 08/23/2017 MATT JAQUEZ Ot S61.213D LACERATION W/O FB OF L MID FINGER W/O DA 08/23/2017 MATT JAQUEZ Ot X58.XXXD EXPOSURE TO OTHER SPECIFIED FACTORS, SUB 08/27/2017 MATT JAQUEZ Ot S61.213D LACERATION W/O FB OF L MID FINGER W/O DA 08/27/2017 MATT JAQUEZ Ot X58.XXXD EXPOSURE TO OTHER SPECIFIED FACTORS, SUB Procedures Code [place] [id number] [facility] A (IN-HOUSE) 09/19/2013 Results Test Result Range [...] 01/27/16 03:07 Bacterial blood culture NG NRG URIC ACID, SERUM - 10/26/17 17:00 URIC ACID 8.2 mg/dL 4.0-8.0 Encounters ACCT No. Visit Date/Time Discharge Status Pt. Type Provider Facility Loc./Unit Complaint [id number] 03/05/2014 09:05:00 03/05/2014 23:59:59 CLS Outpatient DRE KOCH APRN [id number] 09/19/2013 15:21:00 09/19/2013 23:59:59 CLS Outpatient GAMALIEL CID LAURA K [id number] 08/21/2017 11:56:00 08/21/2017 12:10:00 DIS Outpatient MATT JAQUEZ [facility] ER SUTURE REMOVAL [id number] 08/10/2017 12:05:00 08/10/2017 13:14:00 DIS Outpatient MARILIN CANTRELL [facility] ER WOUND CHECK [id number] 08/08/2017 12:15:00 08/08/2017 14:26:00 DIS Emergency SPENCER ROMAN APRN [facility] ER LEFT MIDDLE FINGER INJURY [id number] 06/11/2017 19:18:00 06/11/2017 20:47:00 DIS Outpatient MATT JAQUEZ [facility] ER HIP PAIN RADIATING TO KNEE AND BACK,NO INJ [id number] 01/11/2017 21:23:00 01/11/2017 22:07:00 DIS Emergency EVA BERNARD, ADDY Sepulveda [facility] ER COUGH [id number] 08/27/2016 17:14:00 08/27/2016 23:59:59 CLS Outpatient OTHER, UNLISTED [facility] RAD FACIAL DROOP [id number] 01/27/2016 02:22:00 01/27/2016 03:45:00 DIS Emergency BRI SNYDER DO K [facility] ER RT FOOT PAIN,GOUT [id number] 10/01/2015 22:06:00 10/01/2015 23:53:00 DIS Emergency MATT JAQUEZ [facility] ER RIGHT FOOT PAIN [id number] 09/23/2012 20:08:00 09/23/2012 21:16:00 DIS Emergency SANTIAGO BERNARD, RODNEY Choi [facility] ER R FOOT PAIN [id number] 04/02/2012 19:37:00 Document Registration [id number] 09/14/2017 14:20:00 09/14/2017 23:59:59 CLS Outpatient DRE KOCH APRN [facility] [id number] 10/26/2017 16:00:00 Document Registration
[2017-11-15] MEDS ORDERED: L.E.T. SYRINGE 5 ML ONE (01:40)
[2017-11-15] MEDS ORDERED: LIDOCAINE 1% INJ 20 ML 20 ML VIAL INJ ONE (01:45)
--- NOTE | 2017-11-15 03:01 | ED Head Injury ---
General Chief Complaint: Laceration Stated Complaint: HEAD LAC Source: patient Exam Limitations: no limitations History of Present Illness Date Seen by Provider: Nov 15, 2017 Time Seen by Provider: 01:37 Initial Comments Here with report of head injury. He was at work when a SYSTEM broke apart and struck him in the head. This causes had the pitchfork. Initially described a little bit of neck pain but has full range of motion without any significant pain. Pain mostly to the top of the head. Denies loss of consciousness. He did have bleeding. Last tetanus shot a few months ago. Occurred: this morning (approximately 30 minutes prior to arrival) Severity: moderate Location: frontal Method of Injury: direct blow Loss of Consciousness: no loss of consciousness Associated Systoms: Headaches; No Nausea/Vomiting Allergies and Home Medications Allergies Coded Allergies: No Known Drug Allergies (Unverified , 04/02/12) Home Medications Cephalexin 500 Mg Capsule, 500 MG PO TID Prescribed by: SPENCER ROMAN on 08/08/17 1410 Cyclobenzaprine HCl 10 Mg Tablet, 10 MG PO Q8H PRN for SPASMS Prescribed by: MATT COLLIER on 06/11/172030 Hydrocodone/Acetaminophen 1 Each Tablet, 1 EACH PO Q4H Prescribed by: SPENCER ROMAN on 08/08/17 1410 Naproxen 500 Mg Tablet, 500 MG PO BID Prescribed by: MATT COLLIER on 06/11/172030 Prednisone 20 Mg Tab, 40 MG PO DAILY Prescribed by: MATT COLLIER on 06/11/172030 Patient Home Medication List Home Medication List Reviewed: Yes Review of Systems Review of Systems Constitutional: see HPI, dizziness; No fever, No weakness Eyes: No Symptoms Reported Ears, Nose, Mouth, Throat: no symptoms reported Respiratory: no symptoms reported Cardiovascular: no symptoms reported Skin: see HPI, change in color, lesions Psychiatric/Neurological: Headache; Denies Weakness Past Gtlbmrm-Yltszz-Qdyxxd Hx Past Med/Social Hx: Reviewed Nursing Past Med/Soc Hx Patient Social History Alcohol Use: Denies Use Recreational Drug Use: No Type Used: Smokeless Tobacco Recent Foreign Travel: No Contact w/Someone Who Travel: No Recent Hopitalizations: No Seasonal Allergies Seasonal Allergies: No Past Medical History Surgeries: Yes (kidney stones) Ear Surgery, Renal Respiratory: No Cardiac: No Neurological: No Reproductive Disorders: No Sexually Transmitted Disease: No HIV/AIDS: No Genitourinary: Yes Kidney Stones Gastrointestinal: No Musculoskeletal: No Gout Endocrine: No Cancer: No Psychosocial: No Integumentary: No Blood Disorders: No Adverse Reaction/Blood Tranf: No Family Medical History Reviewed Nursing Family Hx No Pertinent Family Hx Physical Exam Vital Signs Capillary Refill : Height, Weight, BMI Height: 5'7.00" Weight: 250lbs. 0oz. 113.432185jj; 35.15 BMI Method:Stated General Appearance: WD/WN, no apparent distress HEENT: PERRL/EOMI, TMs normal, pharynx normal Neck: non-tender, full range of motion, supple, normal inspection Cardiovascular: regular rate, rhythm, no murmur Respiratory: lungs clear, normal breath sounds Psychiatric: alert, oriented x 3 Crainal Nerves: normal hearing, normal speech, PERRL Coordination/Gait: normal gait Skin: warm/dry, other (for centimeter vertical laceration to forehead centrally ) [place] Coma Score Best Eye Response: (4) Open Spontaneously Best Verbal Response: (5) Oriented Best Motor Response: (6) Obeys Commands Procedures/Interventions Wound Location: Face Other Wound Location Forehead centrally Wound Length (cm): 4 Wound's Depth, Shape: superficial, irregular Wound Explored: contaminated Irrigated w/ Saline (ccs): 100 Betadine Prep?: Yes (Betasept) Anesthesia: 1% Lidocaine Volume Anesthetic (ccs): 8 Wound Debrided: minimal Suture: Prolene Suture Size: 5-0 Number of Sutures: 6 Layer Closure?: 1 Number Deep Layer Sutures: 0 Sterile Dressing Applied?: Yes Progress Cover with antibiotic ointment and dressing afterwards. Tolerated procedure well with no complications. Progress/Results/Core Measures Results/Orders My Orders Orders - ADDY VELASQUEZ MD Lidocaine 1% Inj 20 Ml (Xylocaine 1% Inj (11/15/17 01:45) Let Solution (Let Solution) (11/15/17 01:40) Ct Head Wo (11/15/17 01:49) Progress Progress Note : Progress Note Seen and evaluated. LET to wound after cleaning. CT head ordered. Wound closure. Discharged home with return precautions. Patient verbalize understanding instructions and agreement with plan. Diagnostic Imaging Diagonstic Imaging: CT Plain Films/CT/US/NM/MRI: head Comments Frontal scalp swelling. No evidence of foreign body, fracture or intracranial hemorrhage. Reviewed: Reviewed Night Hawk Study, Reviewed by Me Departure Impression Primary Impression: Forehead laceration Qualified Codes: S01.81XA - Laceration without foreign body of other part of head, initial encounter Additional Impression: Concussion without loss of consciousness Qualified Codes: S06.0X0A - Concussion without loss of consciousness, initial encounter Disposition: 01 HOME, SELF-CARE Condition: Improved Departure-Patient Inst. Referrals: [facility] (PCP) Primary Care Physician OCCUPATIONAL [facility]ERAPY [facility] Patient Instructions: Concussion, Adult (DC), Laceration Repair With Stitches ( DC) Add. Discharge Instructions: All discharge instructions reviewed with patient and/or family. Voiced understanding. Rest today. Light duty at work for 2 days. Follow-up with occupational health. Call in the morning for appointment and follow-up time. You may shower. Gently rinse and patent wound dry. You should use antibiotic ointment and dressing over the wound and change that twice daily. Sutures out in 7 days. Return to the emergency department for suture removal. Return for worse pain, swelling, foul-smelling drainage, fever, vision or balance problems, vomiting or other concerns as needed. You may take Tylenol/acetaminophen 1000 mg every 8 hours as needed for pain. You may take ibuprofen 600 mg every 8 hours as needed for pain. You should follow-up with your doctor for recheck of your blood pressure. ADDY VELASQUEZ MD Nov 15, 2017 03:01
[2017-11-15 04:00] VITALS: BP 138/70
[2017-11-15] MEDS ORDERED: RX-HYDROCODONE/APAP 5/325 MG #4 TAB PK PO PRN (04:00)
[2017-11-15] MEDS ORDERED: RX-OXYCODONE/APAP 5-325 MG #4 TAB PK PO PRN (04:00)
--- NOTE | 2017-11-15 05:38 | Diagnostic Imaging Report ---
INDICATION: Trauma to head TECHNIQUE: Routine non contrast-enhanced axial images were obtained from the skull base to the vertex. COMPARISON: 08/27/2016 FINDINGS: The ventricles and cortical sulci are normal in size and contour. There is no midline shift or mass-effect. No acute intra-axial hemorrhage is seen. There are no abnormal areas of increased or decreased density to suggest acute hemorrhage or edema. No extra-axial masses or collections are present. Subtle soft tissue defect is noted midline, anteriorly. No unexpected radiopaque foreign bodies are seen. The underlying bony calvarium is intact. The visualized paranasal sinuses are unremarkable. The mastoid air cells are clear. IMPRESSION: 1. No acute intracranial abnormality. No CT evidence of mass, acute infarct or intracranial hemorrhage. Dictated by: Dictated on workstation # [id number]
== END 2017-11-15 04:00 | disposition home or self-care (01) ==
LOC: EDUNIT# 01:30 → ER 01:32
DX: S01.81XA Laceration without foreign body of other part of head, initial encounter (principal); S06.0X0A Concussion without loss of consciousness, initial encounter; M10.9 Gout, unspecified; R40.2142 Coma scale, eyes open, spontaneous, at arrival to emergency department; R40.2252 Coma scale, best verbal response, oriented, at arrival to emergency department; R40.2362 Coma scale, best motor response, obeys commands, at arrival to emergency department; Z79.52 Long term (current) use of systemic steroids; Z87.442 Personal history of urinary calculi; W22.09XA Striking against other stationary object, initial encounter; Y92.59 Other trade areas as the place of occurrence of the external cause; Y99.0 Civilian activity done for income or pay
CPT/HCPCS: 12042; 70450

== ENCOUNTER 2018-01-16 12:01 | Emergency (ER) | payer OTHER ==
[~2018-01-16] VITALS: Ht 170.2 cm; Wt 117.9 kg
[2018-01-16] MEDS ORDERED: MECLIZINE 25 MG (ANTIVERT) TAB PO ONE (12:30)
--- NOTE | 2018-01-16 12:33 | ED Head Injury ---
General Chief Complaint: Dizziness/Syncope Stated Complaint: HEAD INJ;DIZZINESS Source: patient Exam Limitations: no limitations History of Present Illness Date Seen by Provider: Jan 16, 2018 Time Seen by Provider: 12:29 Initial Comments To ER with reports of a headache on the top of his head midline, dizziness. He was seen here on November 15 for a work-related injury when something broke at work and struck him in the front of the head. He had a normal noncontrast CT of the head and C-spine at that time, the laceration to the frontal scalp was sutured. He's had intermittent troubles with dizziness and headache but the headache has never been as intense as it is today nor the dizziness. He was taking meclizine at home but ran out of this a few days ago. He was subsequently fired from his job he states. Occurred: this morning Severity: moderate Location: occipital, parietal Method of Injury: direct blow Loss of Consciousness: no loss of consciousness Associated Systoms: Headaches Allergies and Home Medications Allergies Coded Allergies: No Known Drug Allergies (Unverified , 04/02/12) Home Medications Cephalexin 500 Mg Capsule, 500 MG PO TID Prescribed by: SPENCER ROMAN on 08/08/17 1410 Cyclobenzaprine HCl 10 Mg Tablet, 10 MG PO Q8H PRN for SPASMS Prescribed by: MATT COLLIER on 06/11/172030 Hydrocodone/Acetaminophen 1 Each Tablet, 1 EACH PO Q4H Prescribed by: SPENCER ROMAN on 08/08/17 1410 Naproxen 500 Mg Tablet, 500 MG PO BID Prescribed by: MATT COLLIER on 06/11/172030 Prednisone 20 Mg Tab, 40 MG PO DAILY Prescribed by: MATT COLLIER on 06/11/172030 Patient Home Medication List Home Medication List Reviewed: Yes Review of Systems Review of Systems Constitutional: see HPI Eyes: No Symptoms Reported Ears, Nose, Mouth, Throat: no symptoms reported Respiratory: no symptoms reported Cardiovascular: no symptoms reported Genitourinary: no symptoms reported Musculoskeletal: no symptoms reported Skin: no symptoms reported Psychiatric/Neurological: See HPI, Headache Endocrine: No Symptoms Reported Past Uyacfcb-Xfbase-Ubdxvj Hx Patient Social History Type Used: Smokeless Tobacco Recent Hopitalizations: No Seasonal Allergies Seasonal Allergies: No Past Medical History Surgeries: Yes (kidney stones) Ear Surgery, Renal Respiratory: No Cardiac: No Neurological: No Reproductive Disorders: No Sexually Transmitted Disease: No HIV/AIDS: No Genitourinary: Yes Kidney Stones Gastrointestinal: No Musculoskeletal: No Gout Endocrine: No Cancer: No Psychosocial: No Integumentary: No Blood Disorders: No Adverse Reaction/Blood Tranf: No Family Medical History No Pertinent Family Hx Physical Exam Vital Signs Capillary Refill : Height, Weight, BMI Height: 5'7.00" Weight: 258lbs. 0oz. 117.199242ua; 35.15 BMI Method:Stated General Appearance: WD/WN, no apparent distress HEENT: PERRL/EOMI, normal ENT inspection, TMs normal, other (no nystagmus) Neck: non-tender, full range of motion Respiratory: no respiratory distress, no accessory muscle use Gastrointestinal: normal bowel sounds, non tender Extremities: normal range of motion, non-tender Psychiatric: alert, oriented x 3 Crainal Nerves: normal hearing, normal speech, PERRL Skin: normal color, warm/dry [place] Coma Score Best Eye Response: (4) Open Spontaneously Best Verbal Response: (5) Oriented Best Motor Response: (6) Obeys Commands [place] Total: 15 Procedures/Interventions Suture Size: 5-0 Progress/Results/Core Measures Results/Orders My Orders Orders - SPENCER ROMAN APRN Ct Head Wo (01/16/18 12:27) Meclizine Tablet (Antivert Tablet) (01/16/18 12:30) Departure Impression Primary Impression: Post concussion syndrome Disposition: 01 HOME, SELF-CARE Condition: Stable Departure-Patient Inst. Decision time for Depature: 12:31 Referrals: [facility] (PCP/Family) Primary Care Physician Patient Instructions: Concussion in Adults Add. Discharge Instructions: 1. Follow-up with your primary care provider to discuss referral to neurologist. Unfortunately, these postconcussion syndromes which includes headache dizziness sometimes fatigue, sometimes irritability, sometimes memory/ concentration impairment can last for 3-6 months. All discharge instructions reviewed with patient and/or family. Voiced understanding. SPENCER ROMAN APRN Jan 16, 2018 12:33
--- NOTE | 2018-01-16 12:45 | Diagnostic Imaging Report ---
PROCEDURE: CT head without contrast. TECHNIQUE: Multiple contiguous axial images were obtained through the brain without the use of intravenous contrast. INDICATION: Head injury and severe headache. COMPARISON: Comparison is made with prior head CT from 11/15/2017. FINDINGS: The ventricles and sulci are within normal limits. No sulcal effacement is identified. There is no midline shift. No acute intra-axial or extra-axial hemorrhage is detected. Cisterns are patent. Visualized paranasal sinuses are clear. IMPRESSION: No acute intracranial process is detected. Dictated by: Dictated on workstation # [id number]
[2018-01-16] MEDS ORDERED: ACET/BUTAL/CAFF (FIORICET) TAB PO PRN (13:00)
[2018-01-16 13:06] VITALS: BP 157/97
--- OUTSIDE RECORDS SUMMARY | 2018-01-16 20:17 | XMS REPORT | Continuity of Care Document ---
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 08/08/2017 SPENCER [...] Ot Z23 ENCOUNTER FOR IMMUNIZATION 08/10/2017 SPENCER ROMAN APRN Ot Z79.52 [facility] (CURRENT) USE OF SYSTEMIC STER 08/10/2017 SPENCER ROMAN APRN Ot Z87.442 PERSONAL HISTORY OF URINARY CALCULI 08/10/2017 MARIILN CANTRELL Ot M10.9 GOUT, UNSPECIFIED 08/10/2017 MARILIN CANTRELL Ot S61.213D LACERATION W/O FB OF L MID FINGER W/O DA 08/10/2017 MARILIN CANTRELL Ot X58.XXXD EXPOSURE TO OTHER SPECIFIED FACTORS, SUB 08/10/2017 MARILIN CANTRELL Ot Z79.52 [facility] (CURRENT) USE OF SYSTEMIC STER 08/10/2017 MARILIN CANTRELL Ot Z87.442 PERSONAL HISTORY OF URINARY CALCULI 08/16/2017 MARILIN CANTRELL Ot M10.9 GOUT, UNSPECIFIED 08/16/2017 MARILIN CANTRELL Ot S61.213D LACERATION W/O FB OF L MID FINGER W/O DA 08/16/2017 ÓSCAR MARILIN Ot X58.XXXD EXPOSURE TO OTHER SPECIFIED FACTORS, SUB 08/16/2017 MARILIN CANTRELL Ot Z79.52 [facility] (CURRENT) USE OF SYSTEMIC STER 08/16/2017 ÓSCAR [...] Procedures Code Description [place] [address] [facility] A (IN-HOUSE) 09/19/2013 Results Test Result [...] Status Pt. Type Provider Facility Loc./Unit Complaint [id number] 03/05/2014 09:05:00 03/05/2014 23:59:59 CLS Outpatient DRE KOCH APRN [id number] 09/19/2013 15:21:00 09/19/2013 23:59:59 CLS Outpatient GAMALIEL CID LAURA Arabella [id number] 11/15/2017 01:32:00 11/15/2017 04:00:00 DIS Emergency ADDY VELASQUEZ MD [facility] ER HEAD LAC [id number] 08/21/2017 11:56:00 08/21/2017 12:10:00 DIS Emergency MATT JAQUEZ [facility] ER SUTURE REMOVAL [id number] 08/10/2017 12:05:00 08/10/2017 13:14:00 DIS Emergency MARILIN CANTRELL [facility] ER WOUND CHECK [id number] 08/08/2017 12:15:00 08/08/2017 14:26:00 DIS Emergency SPENCER ROMAN APRN [facility] ER LEFT MIDDLE FINGER INJURY [id number] 06/11/2017 19:18:00 06/11/2017 20:47:00 DIS Emergency MATT JAQUEZ [facility] ER HIP PAIN RADIATING TO KNEE AND BACK,NO INJ [id number] 01/11/2017 21:23:00 01/11/2017 22:07:00 DIS Emergency ADDY VELASQUEZ MD [facility] ER COUGH [id number] 08/27/2016 17:14:00 08/27/2016 23:59:59 CLS Outpatient OTHER, UNLISTED [facility] RAD FACIAL DROOP [id number] 01/27/2016 02:22:00 01/27/2016 03:45:00 DIS Emergency BRI SNYDER DO [facility] ER RT FOOT PAIN,GOUT [id number] 10/01/2015 22:06:00 10/01/2015 23:53:00 DIS Emergency MATT JAQUEZ [facility] ER RIGHT FOOT PAIN [id number] 09/23/2012 20:08:00 09/23/2012 21:16:00 DIS Emergency RODNEY HENDERSON MD [facility] ER R FOOT PAIN [id number] 04/02/2012 19:37:00 Document Registration [id number] 09/14/2017 14:20:00 09/14/2017 23:59:59 [facility] [place] [id number] 10/26/2017 16:00:00 Document Registration
== END 2018-01-16 13:11 | disposition home or self-care (01) ==
LOC: EDUNIT# 12:01 → ER 12:02
DX: F07.81 Postconcussional syndrome (principal); M10.9 Gout, unspecified; R40.2142 Coma scale, eyes open, spontaneous, at arrival to emergency department; R40.2252 Coma scale, best verbal response, oriented, at arrival to emergency department; R40.2362 Coma scale, best motor response, obeys commands, at arrival to emergency department; Z79.52 Long term (current) use of systemic steroids; Z87.442 Personal history of urinary calculi
CPT/HCPCS: 70450

== ENCOUNTER 2018-03-20 18:35 | Emergency (ER) | payer OTHER ==
[~2018-03-20] VITALS: Ht 170.2 cm; Wt 117.9 kg
--- OUTSIDE RECORDS SUMMARY | 2018-03-20 18:40 | XMS REPORT ---
Author Author DRE KOCH [facility] Address [address] [place] [address] Care Team Providers Care Senior Electronics Technician Name Role Phone DRE KOCH Unavailable PROBLEMS Type Condition ICD9-CM Code YDB44-YS Code Onset Dates Condition Status SNOMED Code Problem Acute gout of right foot, unspecified cause M10.9 Active 040780106 ALLERGIES No Information ENCOUNTERS Encounter Location Date Diagnosis [place] [id number] [place] [address] [id number] Jan, Acute gout involving toe of left foot, unspecified cause M10.9 and Acute gout of right foot, unspecified cause M10.9 [place] [id number] [place] [address] [id number] Oct, Acute gout of right foot, unspecified cause M10.9 [place] [id number] [place] [address] [id number] Sep, Open displaced fracture of distal phalanx of left middle finger, sequela S62.633S [place] [id number] [place] [address] [id number] Jul, Open displaced fracture of distal phalanx of left middle finger with routine healing, subsequent encounter S62.633D [place] [id number] [place] [address] [id number] June, Cough R05 ; Acute non-recurrent frontal sinusitis J01.10 and Wheeze R06.2 [place] [id number] [place] [address] [id number] Aug, Follow-up examination Z09 ; 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 ; Headache, unspecified headache type R51 and Pain, eye, right H57.11 [place] [id number] [place] [address] [id number] Aug, Facial droop R29.810 ; Anesthesia of skin R20.0 and 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 [address] [place] [place] [id number] [place] [phone] May, [address] [place] [address] [id number] Feb, [facility] [address] [place] [id number] [place] [phone] Feb, [id number] [place] [address] [id number] Sep, [facility] [id number] [place] [phone] Sep, [address] [id number] June, IMMUNIZATIONS No Known Immunizations SOCIAL HISTORY Never Assessed REASON FOR VISIT meds for gout PLAN OF CARE VITAL SIGNS MEDICATIONS Medication Instructions Dosage Frequency Start Date End Date Duration Status Allopurinol 100 mg Orally 2 times a day 1 tablet 12h Jul, 30 days Active Etodolac 500 mg Orally Twice a day 1 tablet with food 12h Jan, 10 days Active RESULTS No Results PROCEDURES No Known procedures INSTRUCTIONS MEDICATIONS ADMINISTERED No Known Medications MEDICAL (GENERAL) HISTORY Type Description Date Medical History kidney stones Surgical History lithotripsy 2009
--- OUTSIDE RECORDS SUMMARY | 2018-03-20 18:41 | XMS REPORT | Continuity of Care Document ---
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 08/08/2017 SPENCER [...] IMMUNIZATION 08/10/2017 SPENCER ROMAN APRN Ot Z79.52 LONG-TERM (CURRENT) USE OF SYSTEMIC STER 08/10/2017 SPENCER ROMAN APRN Ot Z87.442 PERSONAL HISTORY OF URINARY CALCULI 08/10/2017 MARILIN CANTRELL Ot M10.9 GOUT, UNSPECIFIED 08/10/2017 MARILIN CANTRELL Ot S61.213D LACERATION W/O FB OF L MID FINGER W/O DA 08/10/2017 MARILIN CANTRELL Ot X58.XXXD EXPOSURE TO OTHER SPECIFIED FACTORS, SUB 08/10/2017 MARILIN CANTRELL Ot Z79.52 LONG-TERM (CURRENT) USE OF SYSTEMIC STER 08/10/2017 MARILIN CANTRELL Ot Z87.442 PERSONAL HISTORY OF URINARY CALCULI 08/16/2017 MARILIN CANTRELL Ot M10.9 GOUT, UNSPECIFIED 08/16/2017 MARILIN CANTRELL Ot S61.213D LACERATION W/O FB OF L MID FINGER W/O DA 08/16/2017 ÓSCAR MARILIN Ot X58.XXXD EXPOSURE TO OTHER SPECIFIED FACTORS, SUB 08/16/2017 MARILIN CANTRELL Ot Z79.52 LONG-TERM (CURRENT) USE OF SYSTEMIC STER 08/16/2017 ÓSCAR [...] TO OTHER SPECIFIED FACTORS, SUB 08/27/2017 MATT AJQUEZ Ot S61.213D LACERATION W/O FB OF L MID FINGER W/O DA 08/27/2017 MATT JAQUEZ Ot X58.XXXD EXPOSURE TO OTHER SPECIFIED FACTORS, SUB Procedures Code Description [place] [address] [facility] A (IN-HOUSE) 09/19/2013 Results Test Result [...] Status Pt. Type Provider Facility Loc./Unit Complaint [id number] 03/05/2014 09:05:00 03/05/2014 23:59:59 CLS Outpatient DRE KOCH APRN [id number] 09/19/2013 15:21:00 09/19/2013 23:59:59 CLS Outpatient GAMALIEL CID LAURA Arabella [id number] 01/16/2018 12:02:00 01/16/2018 13:11:00 DIS Emergency SPENCER ROMAN APRN [facility] ER HEAD INJ;DIZZINESS [id number] 11/15/2017 01:32:00 11/15/2017 04:00:00 DIS Emergency ADDY VELASQUEZ MD [facility] ER HEAD LAC [id number] 08/21/2017 11:56:00 08/21/2017 12:10:00 DIS Emergency MATT JQAUEZ [facility] ER SUTURE REMOVAL [id number] 08/10/2017 12:05:00 08/10/2017 13:14:00 DIS Emergency MARILIN CANTRELL [facility] ER WOUND CHECK [id number] 08/08/2017 12:15:00 08/08/2017 14:26:00 DIS Emergency SPENCER ROMAN APRN [facility] ER LEFT MIDDLE FINGER INJURY [id number] 06/11/2017 19:18:00 06/11/2017 20:47:00 DIS Emergency MATT JAQUEZ [facility] ER HIP PAIN RADIATING TO KNEE AND BACK,NO INJ [id number] 01/11/2017 21:23:00 01/11/2017 22:07:00 DIS Emergency ADDY VELASQUEZ MD [facility] ER COUGH [id number] 08/27/2016 17:14:00 08/27/2016 23:59:59 CLS Outpatient OTHER, UNLISTED [facility] RAD FACIAL DROOP [id number] 01/27/2016 02:22:00 01/27/2016 03:45:00 DIS Emergency BRI SNYDER DO [facility] ER RT FOOT PAIN,GOUT [id number] 10/01/2015 22:06:00 10/01/2015 23:53:00 DIS Emergency MATT JAQUEZ [facility] ER RIGHT FOOT PAIN [id number] 09/23/2012 20:08:00 09/23/2012 21:16:00 DIS Emergency RODNEY HENDERSON MD [facility] ER R FOOT PAIN [id number] 04/02/2012 19:37:00 Document Registration [id number] 09/14/2017 14:20:00 09/14/2017 23:59:59 CLS Outpatient DRE KOCH APRN [facility] [id number] 10/26/2017 16:00:00 Document Registration
--- NOTE | 2018-03-20 19:45 | NUR ---
PATIENT AMBULATORY TO ER ROOM WITH SPOUSE. PATIENT IS AWAKE AND ALERT X 4. VITAL SIGNS MONITORED.
[2018-03-20 19:52] VITALS: BP 145/95
--- NOTE | 2018-03-20 20:51 | NUR ---
PATIENT SLEEPING. NO SIGNS OF DISTRESS PRESENT. VITAL SIGNS MONITORED.
[2018-03-20 22:22] LABS: BILIRUBIN,URINE NEGATIVE (NEGATIVE); CLARITY,URINE CLEAR; COLOR,URINE YELLOW; GLUCOSE, URINE (UA) NEGATIVE (NEGATIVE); KETONES,URINE NEGATIVE (NEGATIVE); LEUKOCYTE ESTERASE ,URINE NEGATIVE (NEGATIVE); NITRITE,URINE NEGATIVE (NEGATIVE); PH,URINE 6 (5-9); PROTEIN,URINE 1+ (NEGATIVE); UROBILINOGEN,URINE NORMAL (NORMAL)
[2018-03-20 22:28] LABS: WBC,URINE RARE /HPF
[2018-03-20 22:29] LABS: SQUAMOUS EPITHELIAL CELL,UR RARE /HPF
[2018-03-20 22:42] LABS: BASOPHILS % (AUTO) 0 % (0-10); EOSINOPHILS # (AUTO) 0.1 10^3/uL (0.0-0.3); EOSINOPHILS % (AUTO) 2 % (0-10); HEMATOCRIT 45 % (40-54); HEMOGLOBIN 14.8 G/DL (13.3-17.7); LYMPHOCYTES # (AUTO) 3.4 X 10^3 (1.0-4.0); LYMPHOCYTES % (AUTO) 43 % (12-44); MEAN CORPUSCULAR HEMOGLOBIN 28 PG (25-34); MEAN CORPUSCULAR HGB CONC 33 G/DL (32-36); MEAN CORPUSCULAR VOLUME 85 FL (80-99); MEAN PLATELET VOLUME 10.5 FL (7.4-10.4); MONOCYTES # (AUTO) 0.5 X 10^3 (0.0-1.0); MONOCYTES % (AUTO) 7 % (0-12); NEUTROPHILS # (AUTO) 3.7 X 10^3 (1.8-7.8); NEUTROPHILS % (AUTO) 48 % (42-75); PLATELET COUNT 210 10^3/uL (130-400); RED CELL DISTRIBUTION WIDTH 14.1 % (10.0-14.5); WHITE BLOOD COUNT 7.8 10^3/uL (4.3-11.0)
[2018-03-20 22:53] LABS: ALANINE AMINOTRANSFERASE 46 U/L (0-55); ALBUMIN 4.6 GM/DL (3.2-4.5); ALKALINE PHOSPHATASE 94 U/L (40-136); BILIRUBIN,TOTAL 0.4 MG/DL (0.1-1.0); BUN/CREATININE RATIO 9; CALCIUM 9.5 MG/DL (8.5-10.1); CARBON DIOXIDE 26 MMOL/L (21-32); CHLORIDE 104 MMOL/L (98-107); CREATININE SERUM 1.01 MG/DL (0.60-1.30); GFR ESTIMATED > 60; GLUCOSE 97 MG/DL (70-105); MAGNESIUM 2.4 MG/DL (1.8-2.4); POTASSIUM 4.2 MMOL/L (3.6-5.0); SODIUM 141 MMOL/L (135-145); TOTAL PROTEIN 8.7 GM/DL (6.4-8.2)
--- NOTE | 2018-03-20 23:47 | ED General ---
General Chief Complaint: Dizziness/Syncope Stated Complaint: DIZZY,HEAD INJURY Nursing Triage Note: PATIENT AMBULATORY TO ER WITH COMPLAINT OF FEELING DIZZY X 4 MONTHS AND HAVING A HEADACHE INTERMITTENTLY. PATIENT STATES THE SYMPTOMS BEGAN FOUR MONTHS AGO AFTER HE HIT HIS HEAD AND REQUIRED STITCHES. PATIENT STATES HE ATTEMPTED TO SEE HIS PRIMARY DOCTOR BUT HAS NOT BEEN ABLE TO GET AN APPOINTMENT. PATIENT STATES HE FEELS AT TIMES LIKE HE IS GOING TO PASS OUT. HE HAS BEEN TAKING MECLIZINE WITH NO RELIEF. Nursing Sepsis Screen: No Definite Risk Source of Information: Patient Exam Limitations: No Limitations History of Present Illness Date Seen by Provider: Mar 20, 2018 Time Seen by Provider: 21:45 Initial Comments This 43-year-old gentleman presents to the emergency room with complaints of dizziness intermittently over the past 4 months since having a head injury in November. Symptoms seem to start after his head injury in which a book struck him on the head, breaking his hard hat and causing a laceration to his forehead. Since then he has had intermittent episodes of dizziness, especially with change in head position or rising from sitting or standing. Today he was working in an environment where his hands and head were lifted up and he became severely dizzy (spinning sensation). He has had multiple visits for this in the past including his ER visit at the time of injury and a follow-up ER visit for postconcussive syndrome. He has also been seen at the urgent care clinic. CTs of the head were performed on the day of injury and again in January. No acute bony or intracranial injuries were identified. In addition to dizziness, patient complains of fatigue. Meclizine has not seemed to help him much. He reports difficulty with getting an appointment at his primary care office. Allergies and Home Medications Allergies Coded Allergies: No Known Drug Allergies (Unverified , 04/02/12) Home Medications Cephalexin 500 Mg Capsule, 500 MG PO TID Prescribed by: SPENCER ROMAN on 08/08/17 141 Cyclobenzaprine HCl 10 Mg Tablet, 10 MG PO Q8H PRN for SPASMS Prescribed by: MATT COLLIER on 06/11/172030 Hydrocodone/Acetaminophen 1 Each Tablet, 1 EACH PO Q4H Prescribed by: SPENCER ROMAN on 08/08/17 141 Naproxen 500 Mg Tablet, 500 MG PO BID Prescribed by: MATT COLLIER on 06/11/172030 Prednisone 20 Mg Tab, 40 MG PO DAILY Prescribed by: MATT COLLIER on 06/11/172030 Promethazine HCl 25 Mg Tablet, 25 MG PO Q8H PRN for DIZZINESS Prescribed by: BRIEN BOYD on 03/21/18 0136 Patient Home Medication List Home Medication List Reviewed: Yes Review of Systems Review of Systems Constitutional: no symptoms reported EENTM: see HPI Respiratory: no symptoms reported Cardiovascular: see HPI Gastrointestinal: no symptoms reported Genitourinary: no symptoms reported Musculoskeletal: no symptoms reported Skin: no symptoms reported Psychiatric/Neurological: See HPI Hematologic/Lymphatic: No Symptoms Reported Immunological/Allergic: no symptoms reported Past Suwpzxd-Kwmcwv-Fbswqx Hx Patient Social History Alcohol Use: Denies Use Recreational Drug Use: No Smoking Status: Never a Smoker Type Used: Smokeless Tobacco 2nd Hand Smoke Exposure: No Recent Foreign Travel: No Contact w/Someone Who Travel: No Recent Infectious Disease Expo: No Recent Hopitalizations: No Physical Abuse: No Sexual Abuse: No Mistreated: No Fear: No Immunizations Up To Date PED Vaccines UTD: Yes Seasonal Allergies Seasonal Allergies: No Past Medical History Surgeries: Yes (kidney stones) Ear Surgery, Renal Respiratory: No Cardiac: No Neurological: Yes Concussion Reproductive Disorders: No Sexually Transmitted Disease: No HIV/AIDS: No Genitourinary: Yes Kidney Stones Gastrointestinal: No Musculoskeletal: No Gout Endocrine: No HEENT: No Cancer: No Psychosocial: No Integumentary: No Blood Disorders: No Adverse Reaction/Blood Tranf: No Family Medical History No Pertinent Family Hx Physical Exam Vital Signs Vital Signs - First Documented 03/20/18 19:10 Temp 98.4 Pulse 78 Resp 18 B/P (MAP) 157/100 (119) Pulse Ox 96 O2 Delivery Room Air Capillary Refill : Less Than 3 Seconds Height, Weight, BMI Height: 5'7.00" Weight: 260lbs. 0oz. 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 Norm as Tested, Other (negative Ramona-Hallpike) Skin: Normal Color, Warm/Dry Procedures/Interventions Suture Size: 5-0 Progress/Results/Core Measures Suspected Sepsis Recent Fever Within 48 Hours: No Infection Criteria Present: None New/Unexplained Altered Menta: No Sepsis Screen: No Definite Risk SIRS Temperature:98.4 Pulse: 75 Respiratory Rate: 16 Laboratory Tests 03/20/18 22:28: White Blood Count 7.8 Blood Pressure 145 /95 Mean: 112 Laboratory Tests 03/20/18 22:28: Creatinine 1.01, Platelet Count 210, Total Bilirubin 0.4 Results/Orders Lab Results Laboratory Tests Test 03/20/18 22:17 03/20/18 22:28 03/21/18 00:43 Range/Units Urine Color YELLOW Urine Clarity CLEAR Urine pH 6 5-9 Urine Specific [place] 1.025 H 1.016-1.022 Urine Protein 1+ H NEGATIVE Urine Glucose (UA) NEGATIVE NEGATIVE Urine Ketones NEGATIVE NEGATIVE Urine Nitrite NEGATIVE NEGATIVE Urine Bilirubin NEGATIVE NEGATIVE Urine Urobilinogen NORMAL NORMAL MG/DL Urine Leukocyte Esterase NEGATIVE NEGATIVE Urine RBC (Auto) NEGATIVE NEGATIVE Urine RBC NONE /HPF Urine WBC RARE /HPF Urine Squamous Epithelial Cells RARE /HPF Urine Crystals NONE /LPF Urine Bacteria NONE /HPF Urine Casts NONE /LPF Urine Mucus TRACE /LPF Urine Culture Indicated NO White Blood Count 7.8 4.3-11.0 10^3/uL Red Blood Count 5.32 4.35-5.85 10^6/uL Hemoglobin 14.8 13.3-17.7 G/DL Hematocrit 45 40-54 % Mean Corpuscular Volume 85 80-99 FL Mean Corpuscular Hemoglobin 28 25-34 PG Mean Corpuscular Hemoglobin Concent 33 32-36 G/DL Red Cell Distribution Width 14.1 10.0-14.5 % Platelet Count 210 130-400 10^3/uL Mean Platelet Volume 10.5 H 7.4-10.4 FL Neutrophils (%) (Auto) 48 42-75 % Lymphocytes (%) (Auto) 43 12-44 % Monocytes (%) (Auto) 7 0-12 % Eosinophils (%) (Auto) 2 0-10 % Basophils (%) (Auto) 0 0-10 % Neutrophils # (Auto) 3.7 1.8-7.8 X 10^3 Lymphocytes # (Auto) 3.4 1.0-4.0 X 10^3 Monocytes # (Auto) 0.5 0.0-1.0 X 10^3 Eosinophils # (Auto) 0.1 0.0-0.3 10^3/uL Basophils # (Auto) 0.0 0.0-0.1 10^3/uL Sodium Level 141 135-145 MMOL/L Potassium Level 4.2 3.6-5.0 MMOL/L Chloride Level 104 98-107 MMOL/L Carbon Dioxide Level 26 21-32 MMOL/L Anion Gap 11 5-14 MMOL/L Blood Urea Nitrogen 9 7-18 MG/DL Creatinine 1.01 0.60-1.30 MG/DL Estimat Glomerular Filtration Rate > 60 BUN/Creatinine Ratio 9 Glucose Level 97 70-105 MG/DL Calcium Level 9.5 8.5-10.1 MG/DL Corrected Calcium 8.5-10.1 MG/DL Magnesium Level 2.4 1.8-2.4 MG/DL Total Bilirubin 0.4 0.1-1.0 MG/DL Aspartate Amino Transf (AST/SGOT) 38 H 5-34 U/L Alanine Aminotransferase (ALT/SGPT) 46 0-55 U/L Alkaline Phosphatase 94 40-136 U/L Troponin I < 0.028 < 0.028 <0.028 NG/ML Total Protein 8.7 H 6.4-8.2 GM/DL Albumin 4.6 H 3.2-4.5 GM/DL My Orders Orders - BRIEN SCHWARZ MD Cbc With Automated Diff (03/20/18 21:54) Comprehensive Metabolic Panel (03/20/18 21:54) Magnesium (03/20/18 21:54) Ua Culture If Indicated (03/20/18 21:54) Troponin I (03/20/18 23:43) Ekg Tracing (03/20/18 23:43) Monitor-Rhythm Ecg Trace Only (03/20/18 23:43) Troponin I (03/21/18 00:30) Chest 1 View, Ap/Pa Only (03/21/18 00:01) Aspirin Tablet (Aspirin Tablet) (03/21/18 00:45) Medications Given in ED Current Medications Medications Dose Ordered Sig/Tai Route Start Time Stop Time Status Last Admin Dose Admin Aspirin 325 mg ONCE ONCE PO 03/21/18 00:45 03/21/18 00:46 DC 03/21/18 00:58 325 MG Vital Signs/I&O 03/20/18 03/20/18 03/21/18 19:10 19:52 01:50 Temp 98.4 98.4 Pulse 78 75 72 Resp 18 16 17 B/P (MAP) 157/100 (119) 145/95 (112) 134/89 (104) Pulse Ox 96 95 96 O2 Delivery Room Air Room Air Room Air Capillary Refill : Less Than 3 Seconds Blood Pressure Mean: 112 Progress Note #1: Time: 23:45 Progress Note Labs were reviewed and were unremarkable. Patient did not seem to have orthostatic symptoms when his blood pressure was checked upon standing. His blood pressure changed from 141/99 sitting to 127/94 standing. A Ramona-Hallpike was performed and was negative. After doing the Thebes-Hallpike patient revealed that he has had some light chest discomfort during his episodes of dizziness. In fact, he had enough discomfort today that he decided to take some aspirin. For this reason a troponin and EKG have been added to his workup. Progress Note #2: Progress Note Troponin and EKG were unremarkable. Patient had 2 troponins drawn 2 hours apart without change. Patient was advised to follow-up with his primary care provider for further evaluation. See discharge instructions. ECG Initial ECG Impression Date: Mar 20, 2018 Initial ECG Impression Time: 23:49 Initial ECG Rate: 72 Initial ECG Rhythm: Normal Sinus Initial ECG Impression: Normal Comment Normal sinus rhythm with no ST elevation or depression. No abnormal intervals or axis deviation. Diagnostic Imaging Diagonstic Imaging: Xray Plain Films/CT/US/NM/MRI: chest Comments Chest x-ray viewed by me. Report not yet available. No acute abnormalities appreciated. Departure Impression Primary Impression: Dizziness Additional Impression: Chest pain Qualified Codes: R07.9 - Chest pain, unspecified Disposition: HOME, SELF-CARE Condition: Improved Departure-Patient Inst. Decision time for Depature: 01:20 Referrals: [facility] (PCP/Family) Primary Care Physician Patient Instructions: Chest Pain, Vertigo (a Type of Dizziness) (DC) Add. Discharge Instructions: Follow-up with your primary care provider soon as possible regarding your chest pain and dizziness. Discuss further workup with your primary care provider which might include referral to a billet sawyer, stress test or heart catheter, carotid ultrasound, referral to neurologist, etc. Drink plenty of clear liquids. Return to care if the symptoms worsen. Take aspirin 81 mg daily until otherwise instructed by your doctor. You may try meclizine or the Phenergan (promethazine) as prescribed for dizziness or nausea. All discharge instructions reviewed with patient and/or family. Voiced understanding. Scripts Promethazine HCl (Promethazine Tablet) 25 Mg Tablet 25 MG PO Q8H PRN for DIZZINESS, #10 TAB Prov: BRIEN SCHWARZ MD 03/21/18 Work/School Note: Work Release Form Date Seen in the Emergency Department: Mar 21, 2018 Return to Work: Mar 22, 2018 Other Restrictions Listed Below: Stop work and seek medical attention if chest pain occurs. Copy Copies To 1: LAURA ALSTON JOSHUA T MD Mar 20, 2018 23:46
[2018-03-21] MEDS ORDERED: ASPIRIN 325 MG (5 GR) TABLET PO ONE (00:45)
[2018-03-21] MEDS ORDERED: PROM25TA14 PO (01:36)
[2018-03-21 01:50] VITALS: BP 134/89
--- NOTE | 2018-03-21 07:28 | Diagnostic Imaging Report ---
PATIENT HISTORY: Dizziness. TECHNIQUE: Single frontal view of the chest. COMPARISON: 01/11/2017. FINDINGS: The lung volumes are low. No focal consolidation is seen. No large pleural effusion or pneumothorax is seen. The cardiomediastinal silhouette is normal in size and contour. No acute osseous abnormality is seen. IMPRESSION: Low lung volumes with no acute pulmonary abnormality seen. Dictated by: Dictated on workstation # [id number]
== END 2018-03-21 01:50 | disposition home or self-care (01) ==
LOC: EDUNIT# 18:35 → ER 18:36
DX: R42 Dizziness and giddiness (principal); R07.89 Other chest pain; Z87.442 Personal history of urinary calculi
CPT/HCPCS: 36415; 71045; 80053; 81000; 83735; 84484; 85025; 93005; 93041

== ENCOUNTER 2018-06-21 19:18 | Emergency (ER) | payer SELFPAY ==
[~2018-06-21] VITALS: Ht 170.2 cm; Wt 113.4 kg
[~2018-06-21 19:18] MED LIST changes: +PROM25TA14 PO
[2018-06-21] MEDS ORDERED: CODE118S4 PO (19:44)
[2018-06-21] MEDS ORDERED: DEXAMETHASONE 10 MG/ML (DECADRON) 1 ML VIAL IM ONE (19:45)
[2018-06-21] MEDS ORDERED: PROMETHAZINE/ CODEINE SYRUP 5 ML UDC PO ONE (19:45)
--- NOTE | 2018-06-21 19:45 | ED Cough/URI ---
General Chief Complaint: Cough/Cold/Flu Symptoms Stated Complaint: COUGH Nursing Triage Note: Pt c/o cough and runny nose that has persisted for a couple of days. Pt reports clear sputum. Pt c/o chest pain with cough. Pt reports taking benedryl and yayo seltzer cold and cough. Sepsis Screen: No Definite Risk Source: patient Exam Limitations: no limitations History of Present Illness Date Seen by Provider: June 21, 2018 Time Seen by Provider: 19:42 Initial Comments To ER with a three-day history of intermittently productive cough, rhinorrhea. No measured fevers. Timing/Duration: just prior to arrival Severity/Quality: moderate Associated Symptoms: cough, nasal congestion, nasal drainage Allergies and Home Medications Allergies Coded Allergies: No Known Drug Allergies (Unverified , 04/02/12) Home Medications Cephalexin 500 Mg Capsule, 500 MG PO TID Prescribed by: SPENCER ROMAN on 08/08/17 141 Cyclobenzaprine HCl 10 Mg Tablet, 10 MG PO Q8H PRN for SPASMS Prescribed by: MATT COLLIER on 06/11/172030 Hydrocodone/Acetaminophen 1 Each Tablet, 1 EACH PO Q4H Prescribed by: SPENCER ROMAN on 08/08/17 141 Naproxen 500 Mg Tablet, 500 MG PO BID Prescribed by: MATT COLLIER on 06/11/172030 Prednisone 20 Mg Tab, 40 MG PO DAILY Prescribed by: MATT COLLIER on 06/11/172030 Promethazine HCl 25 Mg Tablet, 25 MG PO Q8H PRN for DIZZINESS Prescribed by: BRIEN BOYD on 03/21/18 0136 Promethazine HCl/Codeine 118 Ml Syrup, 5 ML PO Q6H PRN for COUGH Prescribed by: SPENCER ROMAN on 06/21/181943 Patient Home Medication List Home Medication List Reviewed: Yes Review of Systems Review of Systems Constitutional: see HPI; No fever EENTM: see HPI, nose congestion Respiratory: see HPI, cough Cardiovascular: no symptoms reported Genitourinary: no symptoms reported Musculoskeletal: no symptoms reported Skin: no symptoms reported Psychiatric/Neurological: No Symptoms Reported Hematologic/Lymphatic: No Symptoms Reported Past Oywvcfk-Pwdaan-Jllsco Hx Patient Social History Alcohol Use: Denies Use Recreational Drug Use: No Smoking Status: Never a Smoker Type Used: Smokeless Tobacco 2nd Hand Smoke Exposure: No Recent Foreign Travel: No Contact w/Someone Who Travel: No Recent Infectious Disease Expo: No Recent Hopitalizations: No Physical Abuse: No Sexual Abuse: No Mistreated: No Immunizations Up To Date PED Vaccines UTD: Yes Seasonal Allergies Seasonal Allergies: No Past Medical History Surgeries: Yes (kidney stones) Ear Surgery, Renal Respiratory: No Cardiac: No Neurological: Yes Concussion Reproductive Disorders: No Sexually Transmitted Disease: No HIV/AIDS: No Genitourinary: Yes Kidney Stones Gastrointestinal: No Musculoskeletal: No Gout Endocrine: No HEENT: No Cancer: No Psychosocial: No Integumentary: No Blood Disorders: No Adverse Reaction/Blood Tranf: No Family Medical History No Pertinent Family Hx Physical Exam Vital Signs - First Documented Capillary Refill : Less Than 3 Seconds Height: 5'7.00" Weight: 250lbs. 0oz. 113.330870ra; 35.15 BMI Method:Stated General Appearance: WD/WN, no apparent distress Eyes: Bilateral Eye Normal Inspection, Bilateral Eye PERRL, Bilateral Eye EOMI HEENT: PERRL/EOMI, normal ENT inspection, TMs normal Neck: non-tender, full range of motion Respiratory: lungs clear, normal breath sounds, no respiratory distress, no accessory muscle use; No wheezing Cardiovascular: regular rate, rhythm, no murmur Gastrointestinal: normal bowel sounds, non tender, soft Neurologic/Psychiatric: alert, normal mood/affect, oriented x 3 Skin: normal color, warm/dry Procedures/Interventions Suture Size: 5-0 Progress/Results/Core Measures Suspected Sepsis Recent Fever Within 48 Hours: No Infection Criteria Present: None New/Unexplained Altered Menta: No Sepsis Screen: No Definite Risk SIRS Temperature:98.7 Pulse: 85 Respiratory Rate: 18 Blood Pressure 126 /78 Mean: 94 Results/Orders My Orders Orders - SPENCER ROMAN APRN Dexamethasone Injection (Decadron Inject (06/21/18 19:45) Promethazine/ Codeine Syrup (Phenergan W (06/21/18 19:45) Chest Pa/Lat (2 View) (06/21/18 19:48) Medications Given in ED Current Medications Medications Dose Ordered Sig/Tai Route Start Time Stop Time Status Last Admin Dose Admin Dexamethasone Sodium Phosphate 10 mg ONCE ONCE IM 06/21/18 19:45 06/21/18 19:46 DC 06/21/18 19:51 10 MG Promethazine HCl/ Codeine 5 ml ONCE ONCE PO 06/21/18 19:45 06/21/18 19:46 DC 06/21/18 19:51 5 ML Vital Signs/I&O 06/21/18 06/21/18 19:25 19:25 Temp 98.7 Pulse 85 Resp 18 B/P (MAP) 126/78 (94) Pulse Ox 95 O2 Delivery Room Air Room Air Capillary Refill : Less Than 3 Seconds Blood Pressure Mean: 94 Departure Impression Primary Impression: Bronchitis Disposition: HOME, SELF-CARE Condition: Stable Departure-Patient Inst. Decision time for Depature: 19:44 Referrals: [facility] (PCP) Primary Care Physician DRE KOCH (Family) Primary Care Physician Patient Instructions: Acute Bronchitis, Adult (DC) Add. Discharge Instructions: 1. Medication as directed. Follow-up with your doctor later next week 2. Return to ER for any concerns. All discharge instructions reviewed with patient and/or family. Voiced understanding. Scripts Azithromycin (Azithromycin) 250 Mg Tablet 250 MG PO DAILY, #4 TAB 0 Refills Prov: SPENCER ROMAN APRN 06/21/18 Promethazine HCl/Codeine (Promethazine-Codeine Syrup) 118 Ml Syrup 5 ML PO Q6H PRN for COUGH, #60 ML Prov: SPENCER ROMAN APRN 06/21/18 Work/School Note: Work Release Form Date Seen in the Emergency Department: June 21, 2018 Return to Work: June 23, 2018 SPENCER ROMAN APRN June 21, 2018 19:45
--- NOTE | 2018-06-21 20:07 | Diagnostic Imaging Report ---
INDICATION: Cough. EXAMINATION: PA and lateral views of the chest were obtained. COMPARISON: Study of 03/21/2018. FINDINGS: Heart size and pulmonary vascularity are within normal limits. There is subtle airspace disease in left parahilar region. No lobar consolidation, pneumothorax or pleural fluid is seen. IMPRESSION: Probable left parahilar pneumonitis or atypical pneumonia. Clinical correlation would be useful. Dictated by: Dictated on workstation # [id number]
[2018-06-21] MEDS ORDERED: AZIT250T12 PO (20:10)
[2018-06-21] MEDS ORDERED: AZITHROMYCIN 250 MG TAB (ZITHROMAX) PO SCH (20:15)
[2018-06-21 20:18] VITALS: BP 126/78
== END 2018-06-21 20:19 | disposition home or self-care (01) ==
LOC: EDUNIT# 19:18 → ER 19:19
DX: J40 Bronchitis, not specified as acute or chronic (principal); M10.9 Gout, unspecified; Z79.52 Long term (current) use of systemic steroids; Z87.442 Personal history of urinary calculi; Z87.820 Personal history of traumatic brain injury
CPT/HCPCS: 71046; 96372

== ENCOUNTER 2019-02-11 17:27 | Emergency (ER) | payer SELFPAY ==
[~2019-02-11] VITALS: Ht 170 cm; Wt 120.4 kg
[~2019-02-11 17:27] MED LIST changes: +AZIT250T12 PO
[2019-02-11] MEDS ORDERED: KETOROLAC 60 MG/2 ML VIAL IM STA (18:22)
[2019-02-11] MEDS ORDERED: HYDROcodone/APAP 7.5 MG/325 MG (LORTAB, LORCET PLUS) TABLET PO STA (18:22)
[2019-02-11] MEDS ORDERED: ACHD5005 PO (18:28)
--- NOTE | 2019-02-11 18:29 | ED Lower Extremity ---
General Chief Complaint: Lower Extremity Stated Complaint: R ANKLE PAIN Nursing Triage Note: COMPLAINS OF GOUT IN HIS RIGHT ANKLE THAT FLARED UP LAST NIGHT. Nursing Sepsis Screen: No Definite Risk Source: patient Exam Limitations: no limitations History of Present Illness Date Seen by Provider: Feb 11, 2019 Time Seen by Provider: 18:15 Initial Comments Here with acute onset of right ankle/foot pain that started last night. No known injury but does have history of gout. States it feels like his gout flare a typical gait gets in his big toe. He did try some ibuprofen and perkins juice and that has not helped. It is worsening. Sometimes he needs treatment. Denies other concerns. Onset: yesterday Severity: moderate Pain/Injury Location: right foot, right ankle Method of Injury: unknown Modifying Factors: Improves With Immobilization; Worse With Movement Allergies and Home Medications Allergies Coded Allergies: No Known Drug Allergies (Unverified , 04/02/12) Patient Home Medication List Home Medication List Reviewed: Yes Review of Systems Constitutional: see HPI; No chills, No fever Respiratory: no symptoms reported Cardiovascular: no symptoms reported Musculoskeletal: joint pain, joint swelling Skin: change in color; No lesions Past Nvyokic-Wcwaaq-Oauoow Hx Past Med/Social Hx: Reviewed Nursing Past Med/Soc Hx Patient Social History Alcohol Use: Rarely Uses Recreational Drug Use: No Type Used: Smokeless Tobacco 2nd Hand Smoke Exposure: No Recent Foreign Travel: No Contact w/Someone Who Travel: No Recent Infectious Disease Expo: No Recent Hopitalizations: No Immunizations Up To Date PED Vaccines UTD: Yes Seasonal Allergies Seasonal Allergies: No Past Medical History Surgeries: Yes (kidney stones) Ear Surgery, Renal Respiratory: No Cardiac: No Neurological: Yes Concussion Reproductive Disorders: No Sexually Transmitted Disease: No HIV/AIDS: No Genitourinary: Yes Kidney Stones Gastrointestinal: No Musculoskeletal: No Gout Endocrine: No HEENT: No Cancer: No Psychosocial: No Integumentary: No Blood Disorders: No Adverse Reaction/Blood Tranf: No Family Medical History Reviewed Nursing Family Hx No Pertinent Family Hx Physical Exam Vital Signs Vital Signs - First Documented 02/11/19 17:38 Temp 36.7 Pulse 82 Resp 16 B/P (MAP) 136/101 (113) Pulse Ox 97 O2 Delivery Room Air Capillary Refill : Less Than 3 Seconds Height, Weight, BMI Height: 5'7.00" Weight: 250lbs. 0oz. 113.563690oe; 41.00 BMI Method:Stated General Appearance: WD/WN, no apparent distress Cardiovascular: regular rate, rhythm, no murmur Respiratory: lungs clear, normal breath sounds Ankles: right ankle pain, right ankle soft tissue tenderness, right ankle other (mild erythema to the top of the foot near the ankle joint) Feet: right foot pain, right foot soft tissue tenderness, right foot swelling, right foot other (tenderness and erythema across the top of the foot near the ankle joint on the medial aspect and midline. Pain with range of motion) Neurologic/Psychiatric: alert, oriented x 3 Skin: warm/dry, other (erythema as above) Procedures/Interventions Suture Size: 5-0 Progress/Results/Core Measures Results/Orders My Orders Orders - ADDY VELASQUEZ MD Lortab 7.5 Mg Po (02/11/19 18:22) Toradol 60 Mg Im (02/11/19 18:22) Vital Signs/I&O 02/11/19 17:38 Temp 36.7 Pulse 82 Resp 16 B/P (MAP) 136/101 (113) Pulse Ox 97 O2 Delivery Room Air Blood Pressure Mean: 113 Progress Progress Note : Progress Note Seen and evaluated. Colchicine 1.2 mg by mouth ordered now and will repeat 0.6 mg by mouth one hour. Hydrocodone 7.5 one tab by mouth given. Toradol 60 mg IM. Monitor patient. Departure Impression Primary Impression: Gout of right foot Qualified Codes: M10.9 - Gout, unspecified Disposition: 01 HOME, SELF-CARE Condition: Improved Departure-Patient Inst. Decision time for Depature: 18:27 Referrals: [facility] (PCP) Primary Care Physician DRE KOCH (Family) Primary Care Physician Patient Instructions: Gout (DC) Add. Discharge Instructions: All discharge instructions reviewed with patient and/or family. Voiced understanding. You may take ibuprofen 800 mg every 8 hours as needed for pain. You may also take Tylenol/acetaminophen 1000 mg every 8 hours as needed for pain if you're not taking the prescribed pain medicine. Drink plenty of fluids. Follow up with your DrSanjeev in one to 2 days for recheck. Return for worse pain, swelling, weakness, breathing problems or other concerns as needed. Scripts Hydrocodone Bit/Acetaminophen (Hydrocodone/Acetaminophen 5/325mg Tablet) 1 Tab Tab 1 EACH PO Q6H PRN for PAIN-MODERATE MDD 10 for 3 Days, #8 TAB Prov: ADDY VELASQUEZ MD 02/11/19 ADDY VELASQUEZ MD Feb 11, 2019 18:28
[2019-02-11] MEDS ORDERED: COLCHICINE 0.6 MG (COLCRYS) TABLET PO ONE ×2 (18:30→19:00)
[2019-02-11 19:02] VITALS: BP 136/101
== END 2019-02-11 19:02 | disposition home or self-care (01) ==
LOC: EDUNIT# 17:27 → ER 17:27
DX: M10.9 Gout, unspecified (principal); Z87.820 Personal history of traumatic brain injury; Z87.442 Personal history of urinary calculi
CPT/HCPCS: 96372; 99284

== ENCOUNTER 2019-09-09 19:16 | Emergency (ER) | payer SELFPAY ==
[~2019-09-09] VITALS: Ht 172 cm; Wt 120.4 kg
[~2019-09-09 19:16] MED LIST changes: -INDO50CA11 PO; +INDO50CA82 PO
--- OUTSIDE RECORDS SUMMARY | 2019-09-09 19:22 | XMS REPORT ---
Author Author Pollo KOCH Organization [address] Address [address] [place] [address] Care Team Providers Care E Business Specialist Name Role Phone DRE KOCH Unavailable PROBLEMS Type Condition ICD9-CM Code [id number] Code Onset Dates Condition S tatus SNOMED Code Problem Gout of right foot, unspecified cause, unspecified chronic ity M10.9 Active 986772918 Problem Other chronic pain G89.29 Active 8 2694663 Problem Acute gout of right foot, unspecified cause M10.9 Active ALLERGIES No Information ENCOUNTERS Encounter Location Date Diagnosis [address] [address] Jul, [place] [id number] [place] [phone] Apr, Gout of right foot, unspecified cause, u nspecified chronicity M10.9 [address] [place] [phone] 24 Mar, 2019 Pain in right ankle and joints of right foot M25.571 and Other chronic pain G89.29 [facility] [address] [place], [place] [id number] [address] [place] [address] Feb, Injury of right ankle, initi al encounter S99.911A and Gout of right foot, unspecified cause, unspecified chronicity M10.9 [facility] [address] [place] [id number] [place] [address] Sep, Cellulitis of chest wall L03 .313 and Tick bite, initial encounter W57.XXXA [facility] [address] S [id number] Jan, Acute gout involving toe of left foot, u nspecified cause M10.9 and Acute gout of right foot, unspecified cause M10.9 [facility] [address] [id number] [place] [id number] Oct, Acute gout of right foot, unspecified ca use M10.9 [facility] [address] [id number] [place] [id number] Sep, Open displaced fracture of distal phalan x of left middle finger, sequela S62.633S [facility] [address] [id number] [place] [id number] Jul, Open displaced fracture of distal phalan x of left middle finger with routine healing, subsequent encounter S62.633D [facility] [address] [facility] [id number] [place] [id number] June, Cough R05 ; Acute non-recurrent frontal sinusitis J01.10 and Wheeze R06.2 [facility] [address] [place] [id number] [place] [id number] Aug, Follow-up examination Z09 ; 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 ; Headache, unspecified headache type R51 and Pain, eye, right H57.11 [facility] [address] [facility] [id number] [place] [id number] Aug, Facial droop R29.810 ; Anesthesia of ski n R20.0 and 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 [facility] [address] [id number] [place] [id number] Aug, [facility] [address] [facility] [id number] [place] [id number] Jul, Acute gout involving toe of left foot, u nspecified cause M10.9 [facility] [address] [id number] [place] [id number] Nov, Right foot pain M79.671 [facility] [address] [facility] [id number] [place] [id number] Aug, Physical exam, pre-employment V70.5 [facility] [place] [address] [facility] [id number] [address] [place] [phone] May, [facility] [place] [address] [facility] [id number] [place] [address] May, [facility] [address] [facility] [id number] [place] [id number] Feb, [facility] [place] [address] [facility] [id number] [address], [place] [address] Feb, [facility] [address] [facility] [id number] [place] [id number] Sep, [facility] [place] [address] [facility] [id number] [address] [address] Sep, [facility] [address] [facility] [id number] [place] [id number] June, IMMUNIZATIONS No Known Immunizations SOCIAL HISTORY Never Assessed REASON FOR VISIT PLAN OF CARE VITAL SIGNS Height 68.5 in 2014-03-05 Weight 244.12 lbs 2014-03-05 Temperature 97.2 degrees Fahrenheit 2014-03-05 Heart Rate 84 bpm 2014-03-05 Respiratory Rate 2014-03-05 Blood pressure systolic 106 mmHg 2014-03-05 Blood pressure diastolic 80 mmHg 2014-03-05 MEDICATIONS Unknown Medications RESULTS No Results PROCEDURES No Known procedures INSTRUCTIONS MEDICATIONS ADMINISTERED No Known Medications MEDICAL (GENERAL) HISTORY Type Description Date Medical History kidney stones Medical History gout Surgical History lithotripsy 2009 Surgical History middle finger on left hand was cut off 2 019 Hospitalization History surgeries
--- OUTSIDE RECORDS SUMMARY | 2019-09-09 19:23 | XMS REPORT ---
Author Author Pollo KOCH [facility] Address [address] [place] [address] Care Team Providers Care Industrial Organization Manager Name Role Phone DRE KOCH Unavailable PROBLEMS Type Condition ICD9-CM Code [id number] Code Onset Dates Condition S tatus SNOMED Code Problem Acute gout of right foot, unspecified cause M10.9 Active 789275914 ALLERGIES No Information ENCOUNTERS Encounter Location Date Diagnosis [place] [id number] [place] [id number] Jan, Acute gout involving toe of left foot, u nspecified cause M10.9 and Acute gout of right foot, unspecified cause M10.9 [place] [address] [place] [id number] [id number] Oct, Acute gout of right foot, unspecified ca use M10.9 [place] [address] [id number] [place] [id number] Sep, Open displaced fracture of distal phalan x of left middle finger, sequela S62.633S [place] [address] [place] [id number] [place], [place] [address] [id number] Jul, Open displaced fracture of distal phalan x of left middle finger with routine healing, subsequent encounter S62.633D [facility] [id number] [place] [id number] June, Cough R05 ; Acute non-recurrent frontal sinusitis J01.10 and Wheeze R06.2 [place] [address] [place] [id number] [place] [id number] Aug, Follow-up examination Z09 ; 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 ; Headache, unspecified headache type R51 and Pain, eye, right H57.11 [place] [address] [place] [id number] [id number] Aug, Facial droop R29.810 ; Anesthesia of ski n R20.0 and 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 [facility] [address] [id number] [place] [id number] Aug, [facility] [address] [id number] [place] [id number] Jul, Acute gout involving toe of left foot, u nspecified cause M10.9 [facility] [address] [id number] [place] [id number] Nov, Right foot pain M79.671 [facility] [address] [id number] [place] [id number] Aug, Physical exam, pre-employment V70.5 [facility] [address] [place] [id number] [address] [place] [phone] May, [facility] [address] [facility] [id number] [address] [place] [phone] May, [facility] [address] [id number] [place] [id number] Feb, [facility] [address] [facility] [id number] [address] [place] [phone] Feb, [facility] [address] [facility] [id number] [place] [id number] Sep, [facility] [address] [facility] [id number] [address] [place] [phone] Sep, [facility] [address] [facility] [id number] [place] [id number] June, IMMUNIZATIONS No Known Immunizations SOCIAL HISTORY Never Assessed REASON FOR VISIT PLAN OF CARE VITAL SIGNS Height 68.5 in 2013-09-19 Weight 244.2 lbs 2013-09-19 Temperature 98.6 degrees Fahrenheit 2013-09-19 Heart Rate 84 bpm 2013-09-19 Respiratory Rate 20 2013-09-19 Blood pressure systolic 114 mmHg 2013-09-19 Blood pressure diastolic 70 mmHg 2013-09-19 MEDICATIONS Unknown Medications RESULTS No Results PROCEDURES Procedure Date Ordered Result Body Site STREP A ASSAY W/OPTIC Sep 19, 2013 INSTRUCTIONS MEDICATIONS ADMINISTERED No Known Medications MEDICAL (GENERAL) HISTORY Type Description Date Medical History kidney stones Surgical History lithotripsy 2009
--- OUTSIDE RECORDS SUMMARY | 2019-09-09 19:23 | XMS REPORT ---
Author Author Pollo Jansen Doctor Organization [facility] Address Unknown Phone Unavailable Care Team Providers Care Asbestos Worker Helper Name Role Phone Migration, Doctor Unavailable Unavailable PROBLEMS Type Condition ICD9-CM Code [id number] Code Onset Dates Condition S tatus SNOMED Code Problem Acute gout of right foot, unspecified cause M10.9 Active 215145190 ALLERGIES No Information ENCOUNTERS Encounter Location Date Diagnosis [facility] [address] [id number] [place] [id number] Jan, Acute gout involving toe of left foot, u nspecified cause M10.9 and Acute gout of right foot, unspecified cause M10.9 [facility] [address] [id number] [place] [id number] Oct, Acute gout of right foot, unspecified ca use M10.9 [facility] [address] [id number] [place] [id number] Sep, Open displaced fracture of distal phalan x of left middle finger, sequela S62.633S [facility] [address] [id number] [place] [id number] Jul, Open displaced fracture of distal phalan x of left middle finger with routine healing, subsequent encounter S62.633D [facility] [address] [id number] [place] [id number] June, Cough R05 ; Acute non-recurrent frontal sinusitis J01.10 and Wheeze R06.2 [facility] [address] [id number] [place] [id number] Aug, Follow-up examination Z09 ; 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 ; Headache, unspecified headache type R51 and Pain, eye, right H57.11 [facility] [address] [id number] [place] [id number] Aug, 2016 Facial droop R29.810 ; Anesthesia of ski n R20.0 and 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 [facility] [address] [id number] [place] [id number] Aug, [facility] [address] [id number] [place] [id number] Jul, Acute gout involving toe of left foot, u nspecified cause M10.9 [facility] [address] [id number] [place] [id number] Nov, Right foot pain M79.671 [facility] [address] [id number] [place] [id number] Aug, Physical exam, pre-employment V70.5 [facility] [address] [facility] [id number] [address] [place] [phone] May, [facility] [address] [facility] [id number] [address] [place] [address] May, [facility] [address] [facility] [id number] [place] [id number] Feb, [facility] [address] [facility] [id number] [address] [place] [phone] Feb, [facility] [address] [facility] [id number] [place] [id number] Sep, [facility] [address] [facility] [id number] [address] [place] [phone] Sep, [facility] [address] [facility] [id number] [place] [id number] June, IMMUNIZATIONS No Known Immunizations SOCIAL HISTORY Never Assessed REASON FOR VISIT EMR-[facility] PLAN OF CARE VITAL SIGNS MEDICATIONS Medication Instructions Dosage Frequency Start Date End Date Duration S neeta Terbinafine 250 mg 1 tablet by Oral route 1 time per d ay for 42 day(s) June, Active RESULTS No Results PROCEDURES No Known procedures INSTRUCTIONS MEDICATIONS ADMINISTERED No Known Medications MEDICAL (GENERAL) HISTORY Type Description Date Medical History kidney stones Surgical History lithotripsy 2009
--- OUTSIDE RECORDS SUMMARY | 2019-09-09 19:23 | XMS REPORT | Continuity of Care Document ---
Author Organization Unknown Address Unknown Phone Unavailable Allergies Active Description Code Type Severity Reaction Onset Reported/Identified Relationship to Patient Clinical Status Yes No Known Drug Allergies [id number] Drug Allergy Unknown N/A 04/02/2012 Medications There is no data. Problems Date Dx Coded Attending Type Code Diagnosis Diagnosed By 07/07/2011 LAURA ALSTON DO 110.4 DERMATOPHYTOSIS OF FOOT 07/07/2011 DRE KOCH APRN 110.4 DERMATOPHYTOSIS OF FOOT 04/02/2012 Ot 486 PNEUMO DOMINGUEZ, ORGANISM NOS 04/02/2012 Ot 784.0 HEAD ACHE 04/02/2012 Ot 786.2 COUGH 09/23/2012 RODNEY HENDERSON MD Ot 729. 5 PAIN IN LIMB 09/23/2012 RODNEY HENDERSON MD Ot 729. 81 SWELLING OF LIMB 09/19/2013 LAURA ALSTON DO [...] Ot M10.9 GOUT, UNSPECIFIED 06/11/2017 MATT JAQUEZ L Ot M54.16 RADICULOPATHY, LUMBAR REGION 06/11/2017 MATT JAQUEZ Ot M54.5 LOW BACK PAIN 06/11/2017 MATT AJQUEZ Ot Z87.442 PERSONAL HISTORY OF URINARY CALCULI 06/11/2017 MATT JAQUEZ Ot Z98.890 OTHER SPECIFIED POSTPROCEDURAL STATES 06/13/2017 MATT JAQUEZ L Ot M10.9 GOUT, UNSPECIFIED 06/13/2017 DAMARI JAQUEZEN L Ot M54.16 RADICULOPATHY, LUMBAR REGION 06/13/2017 MATT JAQUEZ L Ot M54.5 LOW BACK PAIN 06/13/2017 MATT JAQUEZ L Ot Z87.442 PERSONAL HISTORY OF URINARY CALCULI 06/13/2017 MATT JAQUEZ L Ot Z98.890 OTHER SPECIFIED POSTPROCEDURAL STATES 06/17/2017 MATT JAQUEZ Ot M10.9 GOUT, UNSPECIFIED 06/17/2017 DAMARI JAQUEZEN L Ot M54.16 RADICULOPATHY, LUMBAR REGION 06/17/2017 MATT JAQUEZ L Ot M54.5 LOW BACK PAIN 06/17/2017 MATT JAQUEZ L Ot Z87.442 PERSONAL HISTORY OF URINARY CALCULI 06/17/2017 MATT JAQUEZ L Ot Z98.890 OTHER SPECIFIED POSTPROCEDURAL STATES 08/08/2017 SPENCER ROMAN LANDING MAN Ot M10 .9 GOUT, UNSPECIFIED 08/08/2017 SPENCER ROMAN LANDING MAN Ot S61.213A LACERATION W/O FB OF L MID FINGER W/O DA 08/08/2017 SPENCER ROMAN APRN Ot S62.633A DISP FX OF DISTAL PHALANX OF LEFT MIDDLE 08/08/2017 SPENCRE ROMAN APRN Ot W23.0XXA CAUGHT, CRUSH, JAMMED, OR PINCHED BETW M 08/08/2017 SPENCER ROMAN APRN Ot Z23 ENCOUNTER FOR IMMUNIZATION 08/08/2017 SPENCER ROMAN APRN Ot Z79.52 SENIOR LIVING (CURRENT) USE OF SYSTEMIC STER 08/08/2017 SPENCER ROMAN APRN Ot Z87.442 PERSONAL HISTORY OF URINARY CALCULI 08/10/2017 SPENCER ROMAN APRN Ot M10 .9 GOUT, UNSPECIFIED 08/10/2017 SPENCER ROMAN APRN Ot S61.213A LACERATION W/O FB OF L MID FINGER W/O DA 08/10/2017 SPENCER ROMAN APRN Ot S62.633A DISP FX OF DISTAL PHALANX OF LEFT MIDDLE 08/10/2017 SPENCER ROMAN APRN Ot W23.0XXA CAUGHT, CRUSH, JAMMED, OR PINCHED BETW M 08/10/2017 SPENCER ROMAN APRN Ot Z23 ENCOUNTER FOR IMMUNIZATION 08/10/2017 SPENCER ROMAN APRN Ot 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 08/10/2017 SPENCER ROMAN APRN Ot Z87.442 PERSONAL HISTORY OF URINARY CALCULI 08/10/2017 MARILIN CANTRELL Ot M10.9 GOUT, UNSPECIFIED 08/10/2017 MARILIN CANTRELL Ot S61.213D LACERATION W/O FB OF L MID FINGER W/O DA 08/10/2017 MARILIN CANTRELL Ot X58.XXXD EXPOSURE TO OTHER SPECIFIED FACTORS, SUB 08/10/2017 MARILIN CANTRELL Ot Z79.52 SENIOR LIVING (CURRENT) USE OF SYSTEMIC STER 08/10/2017 MARILIN CANTRELL Ot Z87.442 PERSONAL HISTORY OF URINARY CALCULI 08/16/2017 MARILIN CANTRELL Ot M10.9 GOUT, UNSPECIFIED 08/16/2017 MARILIN CANTRELL Ot S61.213D LACERATION W/O FB OF L MID FINGER W/O DA 08/16/2017 MARILIN CANTRELL Ot X58.XXXD EXPOSURE TO OTHER SPECIFIED FACTORS, SUB 08/16/2017 MARILIN CANTRELL Ot Z79.52 SENIOR LIVING (CURRENT) USE OF SYSTEMIC STER 08/16/2017 MARILIN CANTRELL Ot Z87.442 PERSONAL HISTORY OF [...] X58.XXXD EXPOSURE TO OTHER SPECIFIED FACTORS, SUB 01/16/2018 SPENCER ROMAN APRN Ot F07.81 POSTCONCUSSIONAL SYNDROME 01/16/2018 SPENCER ROMAN LANDING MAN Ot M10 .9 GOUT, UNSPECIFIED 01/16/2018 SPENCER ROMAN APRN Ot R40.2142 COMA SCALE, EYES OPEN, SPONTANEOUS, EMR 01/16/2018 SPENCER ROMAN APRN Ot R40.2252 COMA SCALE, BEST VERBAL RESPONSE, ORIENT 01/16/2018 SPENCER ROMAN LANDING MAN Ot R40.2362 COMA SCALE, BEST MOTOR RESPONSE, OBEYS C 01/16/2018 SPENCER ROMAN LANDING MAN Ot R51 HEADACHE 01/16/2018 SPENCER ROMAN APRN Ot 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 01/16/2018 SPENCER ROMAN LANDING MAN Ot Z87.442 PERSONAL HISTORY OF URINARY CALCULI 03/21/2018 CHONG BERNARD, BRIEN Watson Ot R07.89 OTHER CHEST PAIN 03/21/2018 CHONG BERNARD, BRIEN Watson Ot R42 DIZZINESS AND GIDDINESS 03/21/2018 CHONG BERNARD, BRIEN Watson Ot Z87.442 PERSONAL HISTORY OF URINARY CALCULI 03/22/2018 CHONG BERNARD, BRIEN Watson Ot R07.89 OTHER CHEST PAIN 03/22/2018 CHONG BERNARD, BRIEN Watson Ot R42 DIZZINESS AND GIDDINESS 03/22/2018 BRIEN SCHWARZ MD, Ot Z87.442 PERSONAL HISTORY OF URINARY CALCULI 06/23/2018 SPENCER ROMAN APRN Ot J40 BRONCHITIS, NOT SPECIFIED ACUTE OR CH 06/23/2018 SPENCER ROMAN APRN Ot M10 .9 GOUT, UNSPECIFIED 06/23/2018 SPENCER ROMAN APRN Ot R05 COUGH 06/23/2018 SPENCER ROMAN APRN Ot Z79.52 SENIOR LIVING (CURRENT) USE OF SYSTEMIC STER 06/23/2018 SPENCER ROMAN APRN Ot Z87.442 PERSONAL HISTORY OF URINARY CALCULI 06/23/2018 SPENCER ROMAN APRN Ot Z87.820 PERSONAL HISTORY OF TRAUMATIC BRAIN INJU 02/15/2019 ADDY VELASQUEZ MD, Ot M10.9 GOUT, UNSPECIFIED 02/15/2019 ADDY VELASQUEZ MD, Ot M25.571 PAIN IN RIGHT ANKLE AND JOINTS OF RIGHT 02/15/2019 ADDY VELASQUEZ MD, Ot Z87.442 PERSONAL HISTORY OF URINARY CALCULI 02/15/2019 ADDY VELASQUEZ MD, Ot Z87.820 PERSONAL HISTORY OF TRAUMATIC BRAIN INJU Procedures Code Description Performed By [place] [address] STRE P A (IN-HOUSE) 09/19/2013 Results Test Result Range Serum or plasma uric acid measurement (m ass/volume) - 10/01/15 22:57 Serum or plasma uric acid measurement (mass/volume) 9.4 mg/dL 2.6-7.2 Complete blood count (CBC) with automate d white blood cell (WBC) differential - 01/27/16 02:50 Blood leukocytes automated count (number/volume) 9.3 10*3/uL 4.3-11.0 Blood erythrocytes automated count (number/volume) 5.20 10*6/uL 4.35-5.85 Venous blood hemoglobin measurement (mass/volume) 14.7 g/dL 13.3-17.7 Blood hematocrit (volume fraction) 45 % 40-54 Automated erythrocyte mean corpuscular volume 86 [ foz_us] 80-99 Automated erythrocyte mean corpuscular h emoglobin (mass per erythrocyte) 28 pg 25-34 Automated erythrocyte mean corpuscular h emoglobin concentration measurement (mass/volume) 33 g/dL 32-36 Automated erythrocyte distribution width ratio 14. 2 % 10.0- 14.5 Automated blood platelet count (count/volume) 220 10*3/uL [...] 10*3 1.0-4.0 Blood monocytes automated count (number/volume) 0. 8 10*3 0.0-1.0 Automated eosinophil count 0.2 10*3/uL 0 .0-0.3 Automated blood basophil count (count/volume) 0.0 10*3/uL 0.0-0.1 Blood lactic acid measurement (moles/vol ume) - 01/27/16 02:50 Blood lactic acid measurement (moles/volume) 1.5 m mol/L 0.5- 2.0 Comprehensive metabolic panel - 01/27/16 02:50 Serum or plasma sodium measurement (moles/volume) 139 mmol/L 135-145 Serum or plasma potassium measurement (moles/volume) 4.2 mmol/L 3.6-5.0 Serum or plasma chloride measurement (moles/volume) 105 mmol/L 98-107 Carbon dioxide 22 mmol/L 21-32 Serum or plasma anion gap determination (moles/volume) 12 mmol/L 5-14 Serum or plasma urea nitrogen measurement (mass/volume ) 12 mg/dL 7-18 Serum or plasma creatinine measurement (mass/volume) 0.93 mg/dL 0.60-1.30 Serum or plasma urea nitrogen/creatinine mass ratio 13 NRG Serum or plasma creatinine measurement w ith calculation of estimated glomerular filtration rate > NRG Serum or plasma glucose measurement (mass/volume) 100 mg/dL 70-105 Serum or plasma calcium measurement (mass/volume) 9.5 mg/dL 8.5-10.1 Serum or plasma total bilirubin measurement (mass/volu me) 0.3 mg/dL 0.1-1.0 Serum or plasma alkaline phosphatase jose surement (enzymatic activity/volume) 101 U/L 40-136 Serum or plasma aspartate aminotransfera se measurement (enzymatic activity/volume) 27 U/L 5-34 Serum or plasma alanine aminotransferase measurement (enzymatic activity/volume) 29 U/L 0-55 Serum or plasma protein measurement (mass/volume) 8.3 g/dL 6.4-8.2 Serum or plasma albumin measurement (mass/volume) 4.6 g/dL 3.2-4.5 Serum or plasma uric acid measurement (m ass/volume) - 01/27/16 02:50 Serum or plasma uric acid measurement (mass/volume) 7.9 mg/dL 2.6-7.2 Erythrocyte sedimentation rate by brenna gren method - 01/27/16 02:50 Erythrocyte sedimentation rate by westergren method 9 mm 0- 15 Bacterial blood culture - 01/27/16 02:50 Bacterial blood culture NG NRG Bacterial blood culture - 01/27/16 03:07 Bacterial blood culture NG NRG URIC ACID, SERUM - 10/26/17 17:00 URIC ACID 8.2 mg/dL 4.0-8.0 Complete urinalysis with reflex to cultu re - 03/20/18 22:17 Urine color determination YELLOW NRG Urine clarity determination CLEAR NR G Urine pH measurement by test strip 6 5-9 Specific gravity of urine by test strip 1.025 1.016-1.022 Urine protein assay by test strip, semi-quantitative 1+ NEGATIVE Urine glucose detection by automated test strip NE GATIVE NEGATIVE Erythrocytes detection in urine sediment by light micr oscopy NEGATIVE NEGATIVE Urine ketones detection by automated test strip NE GATIVE NEGATIVE Urine nitrite detection by test strip NEGATIVE NEGATIVE Urine total bilirubin detection by test strip NEGA TIVE NEGATIVE Urine urobilinogen measurement by automated test strip (mass/volume) NORMAL NORMAL Urine leukocyte esterase detection by dipstick NEG ATIVE NEGATIVE Automated urine sediment erythrocyte cou nt by microscopy (number/high power field) NONE NRG Automated urine sediment leukocyte count by microscopy (number/high power field) RARE NRG Bacteria detection in urine sediment by light microsco py NONE NRG Squamous epithelial cells detection in u rine sediment by light microscopy RARE NRG Crystals detection in urine sediment by light microsco py NONE NRG Casts detection in urine sediment by light microscopy NONE NRG Mucus detection in urine sediment by light microscopy TRACE NRG Complete urinalysis with reflex to culture NO NRG Complete blood count (CBC) with automate d white blood cell (WBC) differential - 03/20/18 22:28 Blood leukocytes automated count (number/volume) 7.8 10*3/uL 4.3-11.0 Blood erythrocytes automated count (number/volume) 5.32 10*6/uL 4.35-5.85 Venous blood hemoglobin measurement (mass/volume) 14.8 g/dL 13.3-17.7 Blood hematocrit (volume fraction) 45 % 40-54 Automated erythrocyte mean corpuscular volume 85 [ foz_us] 80-99 Automated erythrocyte mean corpuscular h emoglobin (mass per erythrocyte) 28 pg 25-34 Automated erythrocyte mean corpuscular h emoglobin concentration measurement (mass/volume) 33 g/dL 32-36 Automated erythrocyte distribution width ratio 14. 1 % 10.0- 14.5 Automated blood platelet count (count/volume) 210 10*3/uL 130-400 Automated blood platelet mean volume measurement 10.5 [foz_us] 7.4-10.4 Automated blood neutrophils/100 leukocytes 48 % 42-75 Automated blood lymphocytes/100 leukocytes 43 % 12-44 Blood monocytes/100 leukocytes 7 % 0-12 Automated blood eosinophils/100 leukocytes 2 % 0-10 Automated blood basophils/100 leukocytes 0 % 0-10 Blood neutrophils automated count (number/volume) 3.7 10*3 1.8-7.8 Blood lymphocytes automated count (number/volume) 3.4 10*3 1.0-4.0 Blood monocytes automated count (number/volume) 0. 5 10*3 0.0-1.0 Automated eosinophil count 0.1 10*3/uL 0 .0-0.3 Automated blood basophil count (count/volume) 0.0 10*3/uL 0.0-0.1 Comprehensive metabolic panel - 03/20/18 22:28 Serum or plasma sodium measurement (moles/volume) 141 mmol/L 135-145 Serum or plasma potassium measurement (moles/volume) 4.2 mmol/L 3.6-5.0 Serum or plasma chloride measurement (moles/volume) 104 mmol/L 98-107 Carbon dioxide 26 mmol/L 21-32 Serum or plasma anion gap determination (moles/volume) 11 mmol/L 5-14 Serum or plasma urea nitrogen measurement (mass/volume ) 9 mg/dL 7-18 Serum or plasma creatinine measurement (mass/volume) 1.01 mg/dL 0.60-1.30 Serum or plasma urea nitrogen/creatinine mass ratio 9 NRG Serum or plasma creatinine measurement w ith calculation of estimated glomerular filtration rate > NRG Serum or plasma glucose measurement (mass/volume) 97 mg/dL 70-105 Serum or plasma calcium measurement (mass/volume) 9.5 mg/dL 8.5-10.1 Serum or plasma total bilirubin measurement (mass/volu me) 0.4 mg/dL 0.1-1.0 Serum or plasma alkaline phosphatase jose surement (enzymatic activity/volume) 94 U/L 40-136 Serum or plasma aspartate aminotransfera se measurement (enzymatic activity/volume) 38 U/L 5-34 Serum or plasma alanine aminotransferase measurement (enzymatic activity/volume) 46 U/L 0-55 Serum or plasma protein measurement (mass/volume) 8.7 g/dL 6.4-8.2 Serum or plasma albumin measurement (mass/volume) 4.6 g/dL 3.2-4.5 Magnesium - 03/20/18 22:28 Magnesium 2.4 mg/dL 1.8-2.4 Serum or plasma troponin i.cardiac measu rement (mass/volume) - 03/20/18 22:28 Serum or plasma troponin i.cardiac measurement (mass/v olume) < ng/mL <0.028 Serum or plasma troponin i.cardiac measu rement (mass/volume) - 03/21/18 00:43 Serum or plasma troponin i.cardiac measurement (mass/v olume) < ng/mL <0.028 [place]NE DISEASE, ANTIBODY PANEL - 11:18 LYME AB SCREEN <0.90 index NRG INTERPRETATION NRG A. PHAGOCYTOPHILUM AB (IGG) <1:64 NR G A. PHAGOCYTOPHILUM AB (IGM) <1:20 NR G INTERPRETATION NRG BABESIA DUNCANI (WA1) ANTIBODY (IGG), IFA <1:256 NRG BABESIA MICROTI AB (IGG) <1:64 titer NRG BABESIA MICROTI AB (IGM) <1:20 titer NRG INTERPRETATION NRG E. CHAFFEENSIS AB IGG <1:64 NRG E. CHAFFEENSIS AB IGM <1:20 NRG URIC ACID, SERUM - 04/09/19 11:13 URIC ACID 8.1 mg/dL 4.0-8.0 ESR/SED RATE - 04/09/19 11:13 SED RATE BY MODIFIED WESTERGREN 34 mm/h < OR = 15 CRP - 04/09/19 11:13 C-REACTIVE PROTEIN 31.5 mg/L <8.0 CBC - 08/30/19 16:13 WHITE BLOOD CELL COUNT 9.1 Thousand/uL 3 .8-10.8 RED BLOOD CELL COUNT 5.11 Million/uL 4.2 0-5.80 HEMOGLOBIN 13.9 g/dL 13.2-17.1 HEMATOCRIT 42.9 % 38.5-50.0 MCV 84.0 fL 80.0-100.0 MCH 27.2 pg 27.0-33.0 MCHC 32.4 g/dL 32.0-36.0 RDW 14.1 % 11.0-15.0 PLATELET COUNT 201 Thousand/uL 140-400 MPV 10.2 fL 7.5-12.5 ABSOLUTE NEUTROPHILS 5651 cells/uL 1500- 7800 ABSOLUTE LYMPHOCYTES 2548 cells/uL 850-3 900 ABSOLUTE MONOCYTES 655 cells/uL 200-950 ABSOLUTE EOSINOPHILS 182 cells/uL 15-500 ABSOLUTE BASOPHILS 64 cells/uL 0-200 NEUTROPHILS 62.1 % NRG LYMPHOCYTES 28.0 % NRG MONOCYTES 7.2 % NRG EOSINOPHILS 2.0 % NRG BASOPHILS 0.7 % NRG Encounters ACCT No. Visit Date/Time Discharge Status Pt. Type Provider Facility Loc./Unit Complaint [id number] 09/04/2019 08:00:00 09/04/2019 23:59: 59 [facility] Outpatient DRE KOCH APRN [facility] [place] [id number] 08/30/2019 14:15:00 Document Registration [id number] 04/09/2019 09:00:00 Document Registration [id number] 10/04/2018 09:30:00 Document Registration [id number] 10/26/2017 16:00:00 Document Registration [id number] 02/11/2019 17:27:00 019 19:02:00 DIS Outpatient ADDY VELASQUEZ MD [facility] ER R ANKLE PAIN [id number] 06/21/2018 19:19:00 019 20:19:00 DIS Outpatient SPENCER ROMAN APRN [facility] ER COUGH [id number] 03/20/2018 18:36:00 019 01:50:00 DIS Emergency BRIEN SCHWARZ MD [facility] ER DIZZY,HEAD INJU RY [id number] 01/16/2018 12:02:00 018 13:11:00 DIS Emergency SPENCER ROMAN APRN [facility] ER HEAD INJ;DIZZINESS [id number] 11/15/2017 01:32:00 018 04:00:00 DIS Emergency ADDY VELASQUEZ MD [facility] ER HEAD LAC [id number] 08/21/2017 11:56:00 018 12:10:00 DIS Emergency MATT JAQUEZ [facility] ER SUTURE REMOVAL [id number] 08/10/2017 12:05:00 018 13:14:00 DIS Emergency MARILIN CANTRELL [facility] ER WOUND CHECK [id number] 08/08/2017 12:15:00 018 14:26:00 DIS Emergency SPENCER ROMAN APRN [facility] ER LEFT MIDDLE FINGER INJU RY [id number] 06/11/2017 19:18:00 018 20:47:00 DIS Emergency MATT JAQUEZ [facility] ER HIP PAIN RADIATING TO KNEE AND BACK,NO INJ [id number] 01/11/2017 21:23:00 017 22:07:00 DIS Emergency ADDY VELASQUEZ MD [facility] ER COUGH [id number] 08/27/2016 17:14:00 017 23:59:59 CLS Outpatient OTHER, UNLISTED V [facility] RAD FACIAL DROOP [id number] 01/27/2016 02:22:00 016 03:45:00 DIS Emergency BRI SNYDER DO a [facility] ER RT FOOT PAIN,GOUT [id number] 10/01/2015 22:06:00 016 23:53:00 DIS Emergency MATT JAQUEZ [facility] ER RIGHT FOOT PAIN [id number] 09/23/2012 20:08:00 013 21:16:00 DIS Emergency RODNEY HENDERSON MD [facility] ER R FOOT PAIN [id number] 04/02/2012 19:37:00 Document Registration [id number] 03/05/2014 09:05:00 03/05/2014 23:59: 59 CLS Outpatient DRE KOCH APRN [id number] 09/19/2013 15:21:00 09/19/2013 23:59: 59 CLS Outpatient LAURA ALSTON DO
--- NOTE | 2019-09-09 20:15 | NUR ---
COVID-19 SWAB COLLECTED AND SENT TO LAB WITH [facility]. [facility] ALSO SENT TO [facility].
[2019-09-09] MEDS ORDERED: RX-ALBUTEROL INHALER 8 GM HFA (VENTOLIN) IH STA (20:27)
[2019-09-09] MEDS ORDERED: RT-ALBUTEROL/IPRATROPIUM 3 ML (DUONEB) VIAL INH ONE (21:15)
--- NOTE | 2019-09-09 21:16 | Diagnostic Imaging Report ---
INDICATION: Cough. EXAMINATION: AP view of the chest was obtained. COMPARISON: Study of 06/21/2018. FINDINGS: Heart size and pulmonary vascularity are within normal limits, and the lungs are clear, bilaterally. IMPRESSION: Unremarkable chest. Dictated by: Dictated on workstation # [id number]
--- NOTE | 2019-09-09 21:20 | ED General ---
General Chief Complaint: Cough/Cold/Flu Symptoms Stated Complaint: COUGH Nursing Triage Note: TO ED VIA POV AND AMBULATORY TO ROOM 10 UNDER PUI COVID PRECAUTIONS R/T C/O COUGH. 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 Nursing Sepsis Screen: No Definite Risk Source of Information: Patient Exam Limitations: No Limitations History of Present Illness Date Seen by Provider: Sep 09, 2019 Time Seen by Provider: 20:15 Initial Comments This 44-year-old gentleman presents to the emergency room with complaints of cough for about a week that became exacerbated a couple days ago when he mowed through a very [place] field. He reports having this problem once or twice a year in the summer time when he is exposed to dust. He denies any fever. He works outside and has very little exposure to other people and has had no known exposures to ill persons or people with davis virus. Oxygen saturation is noted to be 90-92 percent on room air. He reports nebulizer treatments have helped with prior episodes. He does not use any inhaled treatments at home. He does not smoke but chews tobacco. He does not take any allergy medications. Patient had been seen at [facility] and was started on Flonase for his cough and drainage. No inhaled treatments were prescribed and he reports a pulmonary workup was not deemed necessary at that time. Allergies and Home Medications Allergies Coded Allergies: No Known Drug Allergies (Unverified , 04/02/12) Home Medications Benzonatate 100 Mg Capsule, 200 MG PO TID PRN for COUGH Prescribed by: BRIEN BOYD on 09/09/19 233 Hydrocodone Bit/Acetaminophen 1 Tab Tab, 1 EACH PO Q6H PRN for PAIN-MODERATE Prescribed by: ADDY VELASQUEZ on 02/11/191827 Loratadine 10 Mg Tablet, 10 MG PO DAILY Prescribed by: BRIEN BOYD on 09/09/19 233 Prednisone 20 Mg Tab, 40 MG PO DAILY Prescribed by: BRIEN BOYD on 09/09/19 233 Patient Home Medication List Home Medication List Reviewed: Yes Review of Systems Review of Systems Constitutional: no symptoms reported EENTM: no symptoms reported Respiratory: see HPI Cardiovascular: no symptoms reported Gastrointestinal: no symptoms reported Genitourinary: no symptoms reported Musculoskeletal: other (abdominal wall soreness from coughing) Skin: no symptoms reported Psychiatric/Neurological: No Symptoms Reported Hematologic/Lymphatic: No Symptoms Reported Immunological/Allergic: see HPI Past Dabnptb-Fyfqfo-Vdcqur Hx Patient Social History Alcohol Use: Denies Use Recreational Drug Use: No Type Used: Smokeless Tobacco 2nd Hand Smoke Exposure: No Recent Foreign Travel: No Contact w/Someone Who Travel: No Recent Infectious Disease Expo: No Recent Hopitalizations: No Physical Abuse: No Sexual Abuse: No Mistreated: No Fear: No Immunizations Up To Date PED Vaccines UTD: Yes Seasonal Allergies Seasonal Allergies: No Past Medical History Surgeries: Yes (kidney stones) Ear Surgery, Renal Respiratory: No Cardiac: No Neurological: Yes Concussion Reproductive Disorders: No Sexually Transmitted Disease: No HIV/AIDS: No Genitourinary: Yes Kidney Stones Gastrointestinal: No Musculoskeletal: Yes Gout Endocrine: No HEENT: No Cancer: No Psychosocial: No Integumentary: No Blood Disorders: No Adverse Reaction/Blood Tranf: No Family Medical History No Pertinent Family Hx Physical Exam Vital Signs Vital Signs - First Documented 09/09/19 21:20 O2 Flow Rate 2.00 Capillary Refill : Less Than 3 Seconds Height, Weight, BMI Height: 5'7.00" Weight: 250lbs. 0oz. 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 Skin: Normal Color, Warm/Dry Procedures/Interventions Suture Size: 5-0 Progress/Results/Core Measures Suspected Sepsis Recent Fever Within 48 Hours: No Infection Criteria Present: Suspected New Infection New/Unexplained Altered Menta: No Sepsis Screen: No Definite Risk SIRS Temperature: Pulse: 86 Respiratory Rate: 20 Laboratory Tests 09/09/19 21:28: White Blood Count 8.9 Blood Pressure 143 /91 Mean: 108 Laboratory Tests 09/09/19 21:28: Creatinine 1.04, INR Comment 0.9, Platelet Count 206, Total Bilirubin 0.2 Results/Orders Lab Results Laboratory Tests Test 09/09/19 20:15 09/09/19 21:28 Range/Units White Blood Count 8.9 4.3-11.0 10^3/uL Red Blood Count 5.02 4.35-5.85 10^6/uL Hemoglobin 13.9 13.3-17.7 G/DL Hematocrit 43 40-54 % Mean Corpuscular Volume 86 80-99 FL Mean Corpuscular Hemoglobin 28 25-34 PG Mean Corpuscular Hemoglobin Concent 32 32-36 G/DL Red Cell Distribution Width 14.9 H 10.0-14.5 % Platelet Count 206 130-400 10^3/uL Mean Platelet Volume 10.3 7.4-10.4 FL Neutrophils (%) (Auto) 53 42-75 % Lymphocytes (%) (Auto) 36 12-44 % Monocytes (%) (Auto) 8 0-12 % Eosinophils (%) (Auto) 3 0-10 % Basophils (%) (Auto) 1 0-10 % Neutrophils # (Auto) 4.7 1.8-7.8 X 10^3 Lymphocytes # (Auto) 3.2 1.0-4.0 X 10^3 Monocytes # (Auto) 0.7 0.0-1.0 X 10^3 Eosinophils # (Auto) 0.3 0.0-0.3 10^3/uL Basophils # (Auto) 0.1 0.0-0.1 10^3/uL Prothrombin Time 12.6 12.2-14.7 SEC INR Comment 0.9 0.8-1.4 Activated Partial Thromboplast Time 31 24-35 SEC D-Dimer 0.41 0.00-0.49 UG/ML Sodium Level 140 135-145 MMOL/L Potassium Level 4.2 3.6-5.0 MMOL/L Chloride Level 103 98-107 MMOL/L Carbon Dioxide Level 27 21-32 MMOL/L Anion Gap 10 5-14 MMOL/L Blood Urea Nitrogen 9 7-18 MG/DL Creatinine 1.04 0.60-1.30 MG/DL Estimat Glomerular Filtration Rate > 60 BUN/Creatinine Ratio 9 Glucose Level 148 H 70-105 MG/DL Calcium Level 9.4 8.5-10.1 MG/DL Corrected Calcium 9.1 8.5-10.1 MG/DL Magnesium Level 2.0 1.6-2.4 MG/DL Total Bilirubin 0.2 0.1-1.0 MG/DL Aspartate Amino Transf (AST/SGOT) 28 5-34 U/L Alanine Aminotransferase (ALT/SGPT) 36 0-55 U/L Alkaline Phosphatase 92 40-136 U/L Lactate Dehydrogenase 202 125-220 U/L Myoglobin 42.9 10.0-92.0 NG/ML Troponin I < 0.028 <0.028 NG/ML C-Reactive Protein High Sensitivity 0.92 H 0.00-0.50 MG/DL B-Type Natriuretic Peptide < 10.0 <100.0 PG/ML Total Protein 8.2 6.4-8.2 GM/DL Albumin 4.4 3.2-4.5 GM/DL Procalcitonin 0.03 <0.10 NG/ML My Orders Orders - BRIEN SCHWARZ MD Coronavirus Sars-Cov-2 So 2018 (09/09/19 20:36) Chest 1 View, Ap/Pa Only (09/09/19 20:42) Cbc With Automated Diff (09/09/19 21:10) Magnesium (09/09/19 21:10) Ekg Tracing (09/09/19 21:10) Comprehensive Metabolic Panel (09/09/19 21:10) Myoglobin Serum (09/09/19 21:10) Protime With Inr (09/09/19 21:10) Partial Thromboplastin Time (09/09/19 21:10) O2 (09/09/19 21:10) Monitor-Rhythm Ecg Trace Only (09/09/19 21:10) Lipid Panel (09/10/19 06:00) Ed Iv/Invasive Line Start (09/09/19 21:10) Fibrin Degradation Products (09/09/19 21:10) Troponin I (09/09/19 21:10) Albuterol/Ipra Inhalation Soln (Duoneb I (09/09/19 21:15) Svn Small Volume Nebulizer (09/09/19 21:10) Procalcitonin (Pct) (09/09/19 21:10) Hs C Reactive Protein (09/09/19 21:10) BNP (09/09/19 21:10) LDH (09/09/19 21:10) Ketorolac Injection (Toradol Injection) (09/09/19 22:00) Methylprednisolone Sod Succ (Solu-Medrol (09/09/19 22:15) Albuterol Pre-Mix Nebs (Rt) (Proventil (09/09/19 22:07) Aspirin Chewable Tablet (Baby Aspirin Ch (09/09/19 22:15) Aspirin Chewable Tablet (Baby Aspirin Ch (09/09/19 22:11) Benzonatate Capsule (Tessalon Perles) (09/09/19 23:30) Medications Given in ED Current Medications Medications Dose Ordered Sig/Tai Route Start Time Stop Time Status Last Admin Dose Admin Aspirin 324 mg ONCE ONCE PO 09/09/19 22:15 09/09/19 22:16 DC 09/09/19 22:30 324 MG Ketorolac Tromethamine 15 mg ONCE ONCE IVP 09/09/19 22:00 09/09/19 22:02 DC 09/09/19 22:30 15 MG Methylprednisolone Sodium Succinate 125 mg ONCE ONCE IVP 09/09/19 22:15 09/09/19 22:16 DC 09/09/19 22:30 125 MG Vital Signs/I&O 09/09/19 09/09/19 09/09/19 20:00 20:00 21:20 Temp 36.1 Pulse 86 Resp 20 B/P (MAP) 143/91 (108) O2 Delivery Room Air Room Air Nasal Cannula O2 Flow Rate 2.00 Capillary Refill : Less Than 3 Seconds Blood Pressure Mean: 108 Progress Note #1: Time: 21:14 Progress Note Patient was seen and examined. No wheezing or crackles were appreciated on auscultation. However, patient states nebulizer treatments have helped him in the past. For this reason we tried an albuterol inhaler, 4 puffs with chamber spacer. Because of the current pandemic environment with local community spread, COVID swab was obtained. Despite the MDI treatment, patient has become hypoxic with oxygen saturations ranging 86-92 percent on room air. Chest x-ray was obtained and read is pending. Patient also now states he has been having intense chest pain which she attributes to the coughing. Chest pain workup has been ordered. Chest pain has been going on for the past couple of days since he has been coughing intensely. He also complains of abdominal soreness from coughing. Progress Note #2: Time: 23:46 Progress Note Patient was given aspirin when the chest pain workup was ordered. He also received Toradol for management of his pain. Ultimately the cardiopulmonary workup was unremarkable. He received a DuoNeb treatment along with 2 additional albuterol treatments. He additionally received Solu-Medrol. He was monitored for about an hour after the treatments. Oxygen saturations then remained in the 91-93 percent range on room air. Tessalon Perles were given for cough. He was sent home with the inhaler and spacer. He was ultimately discharged home with return precautions. See discharge instructions and work note. ECG Initial ECG Impression Date: Sep 09, 2019 Initial ECG Impression Time: 21:21 Initial ECG Rate: 76 Initial ECG Rhythm: Normal Sinus Initial ECG Intervals: Normal Initial ECG Impression: Normal Comment NSR with not ST elevation or depression. No abnormal intervals or axis deviation. Diagnostic Imaging Diagonstic Imaging: Xray Plain Films/CT/US/NM/MRI: chest Comments Chest x-ray viewed by me and report reviewed. See report below: NAME: ALLI PRESCOTT [facility] REC#: [id number] PT STATUS: REG ER : 1975 PHYSICIAN: BRIEN SCHWARZ MD ADMIT DATE: 09/09/19/ER Draft Date of Exam:09/09/19 CHEST 1 VIEW, AP/PA ONLY INDICATION: Cough. EXAMINATION: AP view of the chest was obtained. COMPARISON: Study of 06/21/2018. FINDINGS: Heart size and pulmonary vascularity are within normal limits, and the lungs are clear, bilaterally. IMPRESSION: Unremarkable chest. Dictated on workstation # [id number] Dict: 09/09/192108 Trans: 09/09/192114 [facility] [id number] Interpreted by: JASON COLEMAN MD Departure Impression Primary Impression: Cough Additional Impressions: Atypical chest pain Hypoxia Disposition: 01 HOME, SELF-CARE Condition: Improved Departure-Patient Inst. Decision time for Depature: 23:31 Referrals: [facility] (PCP) Primary Care Physician DRE KOCH (Family) Primary Care Physician Patient Instructions: COVID19 Add. Discharge Instructions: Drink plenty of clear liquids to stay well-hydrated. Take an antihistamine such as Claritin (loratadine) or Zyrtec (cetirizine) continuously throughout allergy season. For cough, wheezing, or shortness of breath use your inhaler up to 4 puffs every 4 hours as needed. Complete the prednisone steroid as prescribed. Take early in the day and with food or milk to avoid sleep disturbance and stomach upset. For pain, try Tylenol (acetaminophen) up to 1000 mg every 6 hours as needed. Add ibuprofen up to 600 mg every 6 hours as needed for pain not controlled by Tylenol. Home isolate until the results of your davis virus testing are known. If you do not hear results by Tuesday, feel free to call the hospital or your primary care provider. Wear a mask when you're in [place] environments to filter out inhaled irritants. Avoid other inhaled irritants such as cigarette smoke. Follow-up with a primary care provider as soon as possible to discuss your recurrent respiratory problems. You may use Tessalon Perles as prescribed as a cough suppressant. Continue to use Flonase as prescribed through the allergy season. Work toward weight loss to reduce pressure on your chest cavity and improved her breathing. Exercise deep breathing at least 10 times per hour while awake. Return to the emergency room if you have any worsening of symptoms. All discharge instructions reviewed with patient and/or family. Voiced understanding. Scripts Loratadine (Loratadine) 10 Mg Tablet 10 MG PO DAILY, #90 TAB Prov: BRIEN SCHWARZ MD 09/09/19 Benzonatate (TESSALON PERLES) 100 Mg Capsule 200 MG PO TID PRN for COUGH, #10 CAP Prov: BRIEN SCHWARZ MD 09/09/19 Prednisone (Prednisone) 20 Mg Tab 40 MG PO DAILY, #6 TAB 0 Refills Prov: BRIEN SCHWARZ MD 09/09/19 Work/School Note: Work Release Form Date Seen in the Emergency Department: Sep 09, 2019 Return to Work: Sep 12, 2019 Other Restrictions Listed Below: Return to work if symptoms improved and COVID19 test negative. Restrictions: Wear a mask when social distancing not possible and in [place] environments. Copy Copies To 1: ALSTON,BRIEN HUDSON MD Sep 09, 2019 21:20
[2019-09-09 21:43] LABS: BASOPHILS # (AUTO) 0.1 10^3/uL (0.0-0.1); BASOPHILS % (AUTO) 1 % (0-10); EOSINOPHILS # (AUTO) 0.3 10^3/uL (0.0-0.3); EOSINOPHILS % (AUTO) 3 % (0-10); HEMATOCRIT 43 % (40-54); HEMOGLOBIN 13.9 G/DL (13.3-17.7); LYMPHOCYTES # (AUTO) 3.2 X 10^3 (1.0-4.0); LYMPHOCYTES % (AUTO) 36 % (12-44); MEAN CORPUSCULAR HEMOGLOBIN 28 PG (25-34); MEAN CORPUSCULAR HGB CONC 32 G/DL (32-36); MEAN CORPUSCULAR VOLUME 86 FL (80-99); MEAN PLATELET VOLUME 10.3 FL (7.4-10.4); MONOCYTES # (AUTO) 0.7 X 10^3 (0.0-1.0); MONOCYTES % (AUTO) 8 % (0-12); NEUTROPHILS # (AUTO) 4.7 X 10^3 (1.8-7.8); NEUTROPHILS % (AUTO) 53 % (42-75); PLATELET COUNT 206 10^3/uL (130-400); RED CELL DISTRIBUTION WIDTH 14.9 % (10.0-14.5); WHITE BLOOD COUNT 8.9 10^3/uL (4.3-11.0)
[2019-09-09 21:47] LABS: INR 0.9 (0.8-1.4); PROTHROMBIN TIME PATIENT 12.6 SEC (12.2-14.7)
[2019-09-09 21:48] LABS: ALBUMIN 4.4 GM/DL (3.2-4.5)
[2019-09-09 21:49] LABS: CHLORIDE 103 MMOL/L (98-107); POTASSIUM 4.2 MMOL/L (3.6-5.0); SODIUM 140 MMOL/L (135-145)
[2019-09-09 21:50] LABS: CALCIUM 9.4 MG/DL (8.5-10.1)
[2019-09-09 21:51] LABS: GLUCOSE 148 MG/DL (70-105); TOTAL PROTEIN 8.2 GM/DL (6.4-8.2)
[2019-09-09 21:52] LABS: CARBON DIOXIDE 27 MMOL/L (21-32)
[2019-09-09 21:53] LABS: BILIRUBIN,TOTAL 0.2 MG/DL (0.1-1.0)
[2019-09-09 21:55] LABS: ALKALINE PHOSPHATASE 92 U/L (40-136); CREATININE SERUM 1.04 MG/DL (0.60-1.30); GFR ESTIMATED > 60
[2019-09-09 21:56] LABS: BUN/CREATININE RATIO 9
[2019-09-09 21:58] LABS: ALANINE AMINOTRANSFERASE 36 U/L (0-55)
[2019-09-09] MEDS ORDERED: KETOROLAC 30 MG/ML VIAL IVP ONE (22:00)
[2019-09-09] MEDS ORDERED: RT-ALBUTEROL SULF 2.5 MG/3 ML PRE-MIX VIAL ONE (22:07)
[2019-09-09] MEDS ORDERED: ASPIRIN 81 MG CHEW (CHILDREN'S ASA) ONE (22:11)
[2019-09-09] MEDS ORDERED: ASPIRIN 81 MG CHEW (CHILDREN'S ASA) PO ONE (22:15)
[2019-09-09] MEDS ORDERED: methylPREDNISolone 125 MG (Solu-MEDROL) VIAL IVP ONE (22:15)
--- NOTE | 2019-09-09 23:14 | NUR ---
02 SAT 96% ON 2L. DR. SCHWARZ TURNED OFF O2 AT THIS TIME TO MONITOR SAT ON ROOM AIR.
--- NOTE | 2019-09-09 23:25 | NUR ---
02 SAT MAINTAINING 92-94% ON RA.
[2019-09-09] MEDS ORDERED: BENZONATATE 100 MG (TESSALON) CAPSULE PO ONE (23:30)
[2019-09-09] MEDS ORDERED: BENZ100C18 PO (23:35)
[2019-09-09] MEDS ORDERED: PRD20T PO (23:35)
[2019-09-09] MEDS ORDERED: LORA10TA7 PO (23:35)
[2019-09-09 23:49] VITALS: BP 124/79
[2019-09-10] MEDS ORDERED: RT-ALBUTEROL SULF 2.5 MG/3 ML PRE-MIX VIAL INH ONE
== END 2019-09-10 00:02 | disposition home or self-care (01) ==
LOC: EDUNIT# 19:16 → ER 19:17
DX: R05 Cough (principal); R07.89 Other chest pain; R09.02 Hypoxemia; F17.220 Nicotine dependence, chewing tobacco, uncomplicated; Z87.820 Personal history of traumatic brain injury; Z20.828 Contact with and (suspected) exposure to other viral communicable diseases
CPT/HCPCS: 71045; 80053; 83615; 83735; 83874; 83880; 84145; 84484; 85025; 85379; 85610; 85730; 86141; 93005; 93041; 94640; 96374; 96375; 99284; U0002; 36415; 87635

== ENCOUNTER 2020-09-28 21:29 | Emergency (ER) | payer SELFPAY ==
[~2020-09-28] VITALS: Ht 170 cm; Wt 117.0 kg
[~2020-09-28 21:29] MED LIST changes: +BENZ100C18 PO; +LORA10TA7 PO; -SULF1TAB35 PO; +SULF1TAB38 PO
--- NOTE | 2020-09-28 21:55 | ED Headache ---
General Chief Complaint: Head/Cervical Problems Stated Complaint: HEADACHE,DIZZY,COUGH,RECEIVED COVID SHOT Nursing Triage Note: C/O GENERALIZED HEADACH, DIZZINESS X1 DAY. REPORTS RECIEVING COVID VACCINE 09/23/20 Source: patient Exam Limitations: no limitations History of Present Illness Date Seen by Provider: Sep 28, 2020 Time Seen by Provider: 21:43 Initial Comments Patient is a 45-year-old male who presents to the emergency room with a chief complaint of global headache, dizziness onset today, his ears are sore on the outside and he feels a little bit more tired and fatigued today having had to leave work at about 1:00 to go home to take a nap. Patient also endorses a dry cough onset today. He states he had his first Pfizer vaccination approximately 5 days ago. He was unsure if his symptoms were related to side effects of the vaccine. Patient tells me he has a history of hypertension and hypoglycemia. He does not take medication secondary to fear about medication side effects and allergies. He denies any known fever. He denies nausea vomiting or diarrhea. He is not short of breath currently. Not a smoker. All other review of systems reviewed and negative except as stated. Timing/Duration: 4-6 hours Severity/Quality: moderate Location: global Prior Headaches/Recent Trauma: occasional headaches Associated Symptoms: fatigue, other (cough) Allergies and Home Medications Allergies Coded Allergies: No Known Drug Allergies (Unverified , 04/02/12) Home Medications No Active Prescriptions or Reported Meds Patient Home Medication List Home Medication List Reviewed: Yes Review of Systems Review of Systems Constitutional: see HPI Eyes: No Symptoms Reported Ears, Nose, Mouth, Throat: ear pain (outside of his ears are "sore") Respiratory: cough Cardiovascular: no symptoms reported Gastrointestinal: no symptoms reported Musculoskeletal: no symptoms reported Skin: no symptoms reported Psychiatric/Neurological: Headache All Other Systems Reviewed Negative Unless Noted: Yes Past Geebmkf-Kizokx-Pzabrd Hx Patient Social History Tobacco Use?: Yes Substance use?: No Alcohol Use?: No Pt feels they are or have been: No Immunizations Up To Date PED Vaccines UTD: Yes First/Initial COVID19 Vaccinat: 09/23/20 COVID19 Vaccine Sample Clerk: PFIZER Seasonal Allergies Seasonal Allergies: No Past Medical History Surgery/Hospitalization HX: RENAL STONES, GOUT Surgeries: Yes (kidney stones) Ear Surgery, Renal Respiratory: No Cardiac: No Neurological: Yes Concussion Reproductive Disorders: No Sexually Transmitted Disease: No HIV/AIDS: No Genitourinary: Yes Kidney Stones Gastrointestinal: No Musculoskeletal: Yes Gout Endocrine: No HEENT: No Cancer: No Psychosocial: No Integumentary: No Blood Disorders: No Adverse Reaction/Blood Tranf: No Family Medical History No Pertinent Family Hx Physical Exam Vital Signs Vital Signs - First Documented 09/28/20 21:35 Temp 37.7 Pulse 106 Resp 18 B/P (MAP) 155/105 (122) Pulse Ox 95 O2 Delivery Room Air Capillary Refill : Less Than 3 Seconds Height, Weight, BMI Height: 5'7.00" Weight: 250lbs. 0oz. 113.244310hc; 40.00 BMI Method:Stated General Appearance: WD/WN, no apparent distress HEENT: PERRL/EOMI, normal ENT inspection, TMs normal, pharynx normal Neck: full range of motion Cardiovascular: regular rate, rhythm Respiratory: lungs clear, normal breath sounds, no respiratory distress, no accessory muscle use Gastrointestinal: soft Extremities: normal range of motion, non-tender, normal inspection Psychiatric: alert, oriented x 3 Crainal Nerves: normal hearing, normal speech, PERRL Coordination/Gait: normal gait Motor/Sensory: no motor deficit, no sensory deficit Skin: normal color, warm/dry Procedures/Interventions Suture Size: 5-0 Progress/Results/Core Measures Results/Orders Lab Results Laboratory Tests Test 09/28/20 21:54 Range/Units SARS-CoV-2 RNA (RT-PCR) Detected H Not Detecte My Orders Orders - EVERETTE LLOYD MD Ibuprofen Tablet (Motrin Tablet) (09/28/20 22:00) Covid 19 Inhouse Test (09/28/20 21:52) Medications Given in ED Current Medications Medications Dose Ordered Sig/Tai Route Start Time Stop Time Status Last Admin Dose Admin Ibuprofen 600 mg ONCE ONCE PO 09/28/20 22:00 09/28/20 22:01 DC 09/28/20 21:56 600 MG Vital Signs/I&O 09/28/20 21:35 Temp 37.7 Pulse 106 Resp 18 B/P (MAP) 155/105 (122) Pulse Ox 95 O2 Delivery Room Air Blood Pressure Mean: 122 Progress Progress Note : Time: 22:37 Progress Note Patient's Covid test came back positive. I have advised the patient that he will need to quarantine for the next 10 days. I advised him that he still has another week and a half or so before his symptoms may be at their peak. I advised him to get at home pulse oximeter to check his oxygen saturations. I have advised Robitussin and we will send a prescription for Tessalon Perles to the [facility] pharmacy. Patient verbalizes understanding he is given good return precautions. All questions are sought and answered. Departure Impression Primary Impression: COVID-19 Disposition: 01 HOME, SELF-CARE Condition: Stable Departure-Patient Inst. Decision time for Depature: 22:38 Referrals: [facility] (PCP) Primary Care Physician DRE KOCH (Family) Primary Care Physician Patient Instructions: COVID-19 ED Add. Discharge Instructions: Please drink lots of fluids to stay well-hydrated while you are sick. Alternate yjxb-wuk-ldobvxy Tylenol extra strength 2 tablets (1000mg) with bfip-ikx-hsbusca ibuprofen 3 tablets which is 600 mg every 6 hours for headache and body aches. You can use xljz-vuh-ixjpqux Robitussin as needed for cough. I have also sent a prescription for Tessalon Perles for cough to [facility] pharmacy. You should obtain a home pulse oximeter which will measure your oxygen at home. If you get any numbers below 90 you need to come back to the emergency department. You should also come back if you have worsening cough, shortness of breath or other emergent concerning symptoms. You will need to quarantine for 10 days. Continue to mask and social distance at home. Scripts Benzonatate (TESSALON PERLES) 100 Mg Capsule 200 MG PO TID PRN for cough, #30 CAP Prov: EVERETTE LLOYD MD 09/28/20 EVERETTE LLOYD MD Sep 28, 2020 21:55
[2020-09-28] MEDS ORDERED: IBUPROFEN 600 MG (MOTRIN) TAB PO ONE (22:00)
[2020-09-28] MEDS ORDERED: BENZONATATE 100 MG (TESSALON) CAPSULE PO STA (22:32)
[2020-09-28] MEDS ORDERED: BENZ100C18 PO (22:41)
[2020-09-28 22:43] VITALS: BP 155/94
== END 2020-09-28 22:44 | disposition home or self-care (01) ==
LOC: EDUNIT# 21:29 → ER 21:33
DX: U07.1 COVID-19 (principal); I10 Essential (primary) hypertension; Z87.820 Personal history of traumatic brain injury
CPT/HCPCS: 87636; 99283

== ENCOUNTER 2020-10-08 06:42 | Inpatient (IN) | payer MEDICAID ==
[~2020-10-08] VITALS: Ht 170 cm; Wt 97.5 kg
[2020-10-08] MEDS: NS IV 1000 ML 1,000 ML IV SCH ×2 (11:20→21:59)
[2020-10-08] MEDS: PROPOFOL DRIP (ICU) 100 ML IV SCH ×2 (11:21→13:22)
[2020-10-08] MEDS: DOXYCYCLINE INJECTION 100 MG in NS (IVPB) 100 ML IV SCH ×2 (11:25→21:59)
[2020-10-08 11:26] VITALS: BP 96/46
[2020-10-08] MEDS: inSUlin (REGULAR) HUMAN 1 UNIT/0.01 ML (CHARGE PER UNIT) SC SCH ×2 (11:32→17:31)
[2020-10-08] MEDS: ENOXAPARIN 40 MG/0.4 ML (LOVENOX) SYR SC SCH (11:33)
[2020-10-08] MEDS: CEFEPIME INJECTION 1,000 MG in WATER (STERILE) FOR INJECTION 10 ML IV SCH ×2 (11:33→17:31)
[2020-10-08 11:41] LABS: ABG BASE EXCESS 4.5 MMOL/L (-2.5-2.5); ABG OXYGEN SATURATION 96 % (94-100); ABG PCO2 50 MMHG (35-45); ABG PH 7.39 (7.37-7.43); ABG PO2 80 MMHG (79-93); ABG TCO2 30.6 MMOL/L (21.0-31.0); INSPIRED O2 100%; PATIENT TEMP 99.3; VENTILATOR YES
--- NOTE | 2020-10-08 12:23 | History & Physical ---
History of Present Illness HPI/Chief Complaint CC: Covid-19 pneumonia with respiratory failure requiring intubation at [facility] ICU HPI: This is a 45yoWM who had no past medical history until he was admitted to the ER noted to have new onset DM, HgbA1C of 9, with presumed EMANUEL, who was swabbed, positive for Covid, but had a major decline in status within the night with severe respiratory fatigue requiring intubation. Currently, he is now on PEEP of 12, FIO2 of 100% and will review ABG and I appreciate pulmonology consultation. I updated the in detail before transferring to [facility]. Exam Limitations: clinical condition (Intubation) Date Seen 10/08/20 Time Seen by a Provider: 12:00 Attending Physician Cynthia Macias DO [facility] Referring Physician Date of Admission Oct 08, 2020 at 10:38 Home Medications & Allergies Home Medications Reviewed patient Home Medication Reconciliation performed by pharmacy medication reconciliations auto technician and/or nursing. Patients Allergies have been reviewed. Allergies Allergies Coded Allergies No Known Drug Allergies (Unverified04/02/12) Past Pcapxmt-Oivjbf-Ijtxpx Hx Past Med/Social Hx: Reviewed Nursing Past Med/Soc Hx, Reviewed and Corrections made Patient Social History Marrital Status: Employed/Student: employed Alcohol Use: Denies Use Smoking Status: Never a Smoker Type Used: Smokeless Tobacco 2nd Hand Smoke Exposure: No Recent Hopitalizations: No Immunizations Up To Date Pediatric: Yes Seasonal Allergies Seasonal Allergies: No Past Medical History Surgeries: Ear Surgery, Renal Neurological: Concussion Reproductive: No Sexually Transmitted Disease: No HIV/AIDS: No Genitourinary: Kidney Stones Musculoskeletal: Gout Endocrine: Diabetes, Non-Insulin dep (New diagnosis this admit hemoglobin A1c 9.0) History of Blood Disorders: No Adverse Reaction to Blood Thomson: No Family History No Pertinent Family Hx Review of Systems Constitutional: see HPI Physical Exam Physical Exam Vital Signs Vital Signs - First Documented 10/08/20 10/08/20 10/08/20 10/08/20 10:38 10:49 11:00 20:21 Temp 37.6 Pulse 88 Resp 21 B/P (MAP) 95/62 (73) Pulse Ox 95 O2 Delivery Mechanical Ventilator O2 Flow Rate 100.00 FiO2 100 Capillary Refill : Height, Weight, BMI Height: 5'7.00" Weight: 250lbs. 0oz. 113.680591xn; 40.69 BMI Method:Stated General Appearance: No Apparent Distress, WD/WN, Chronically ill, Obese, Other (Sedated and intubated) Eyes: Bilateral Eye Normal Inspection, Bilateral Eye PERRL HEENT: Other (Sedated and endotracheal tube in place) Neck: Full Range of Motion, Normal Inspection, Non Tender, Supple, Carotid Bruit Respiratory: Chest Non Tender, Lungs Clear, No Accessory Muscle Use, No Respiratory Distress, Decreased Breath Sounds Cardiovascular: Regular Rate, Rhythm, No Edema, No Gallop, No JVD, No Murmur, Normal Peripheral Pulses Gastrointestinal: Normal Bowel Sounds, No Organomegaly, No Pulsatile Mass, Soft Back: Normal Inspection Extremity: Normal Capillary Refill, Normal Inspection, No Pedal Edema Skin: Normal Color, Warm/Dry Lymphatic: No Adenopathy Results Results/Procedures Labs Laboratory Tests 10/08/20 13:28 Patient resulted labs reviewed. Assessment/Plan Admission Diagnosis Assessment: Acute hypoxic respiratory failure due to COVID-19 pneumonia requiring intubation after failing BiPAP and Vapotherm at [facility] Obesity BMI 40 Chewing tobacco user New onset diabetes this admit hemoglobin A1c 9.0 Gout Presumed obstructive sleep apnea Plan: Intubation Sedation eICU appreciated Prognosis guarded Admission Status: Inpatient Order (span 2 midnights) Reason for Inpatient Admission: Respiratory failure Diagnosis/Problems Diagnosis/Problems (1) COVID-19 Status: Acute CYNTHIA MACIAS DO Oct 08, 2020 12:23
--- NOTE | 2020-10-08 12:44 | Diagnostic Imaging Report ---
INDICATION: Pneumonia. Comparison is made with prior examination 09/09/2019. FINDINGS: Heart size is normal. There are patchy bilateral pulmonary infiltrates. There is no pleural effusion or pneumothorax. Mediastinum is unremarkable. The endotracheal tube and PICC line are in satisfactory position. IMPRESSION: Patchy bilateral pulmonary infiltrates suspect for atypical pneumonia possibly Covid. Recommend clinical correlation. Dictated by: Dictated on workstation # [id number]
--- NOTE | 2020-10-08 13:00 | Physical Therapy Progress Note ---
Therapy Progress Note Order received for PT eval. Patient is currently intubated and sedated. Will monitor and start when appropriate. ANTHONY CORNEJO PT Oct 08, 2020 13:00
--- NOTE | 2020-10-08 13:08 | Occ Therapy Progress Note ---
Therapy Progress Note OT eval received, chart reviewed. Pt. currently sedated and intubated. Will continue to monitor and evaluate when medically appropriate. 1308 SHIVA LOPES OT Oct 08, 2020 13:08
[2020-10-08 13:22] VITALS: BP 119/78
[2020-10-08 13:52] LABS: BASOPHILS % (AUTO) 0 % (0-10); EOSINOPHILS % (AUTO) 0 % (0-10); HEMATOCRIT 40 % (40-54); HEMOGLOBIN 12.3 g/dL (13.3-17.7); LYMPHOCYTES # (AUTO) 0.7 10^3/uL (1.0-4.0); LYMPHOCYTES % (AUTO) 7 % (12-44); MEAN CORPUSCULAR HEMOGLOBIN 27 pg (25-34); MEAN CORPUSCULAR HGB CONC 31 g/dL (32-36); MEAN CORPUSCULAR VOLUME 89 fL (80-99); MEAN PLATELET VOLUME 11.2 fL (9.0-12.2); MONOCYTES # (AUTO) 0.2 10^3/uL (0.0-1.0); MONOCYTES % (AUTO) 2 % (0-12); NEUTROPHILS # (AUTO) 9.2 10^3/uL (1.8-7.8); NEUTROPHILS % (AUTO) 88 % (42-75); PLATELET COUNT 197 10^3/uL (130-400); WHITE BLOOD COUNT 10.4 10^3/uL (4.3-11.0)
[2020-10-08 13:55] LABS: ALANINE AMINOTRANSFERASE 40 U/L (0-55); ALBUMIN 3.2 GM/DL (3.2-4.5); ALKALINE PHOSPHATASE 63 U/L (40-136); BILIRUBIN,TOTAL 0.5 MG/DL (0.1-1.0); BUN/CREATININE RATIO 21; CALCIUM 9.1 MG/DL (8.5-10.1); CARBON DIOXIDE 28 MMOL/L (21-32); CHLORIDE 102 MMOL/L (98-107); CREATININE SERUM 0.78 MG/DL (0.60-1.30); GFR ESTIMATED 108; GLUCOSE 213 MG/DL (70-105); MAGNESIUM 2.1 MG/DL (1.6-2.4); POTASSIUM 4.3 MMOL/L (3.6-5.0); SODIUM 137 MMOL/L (135-145); TRIGLYCERIDES 279 MG/DL (<150)
[2020-10-08 13:57] LABS: FIBRIN DEGRADATION PRODUCTS 0.6 UG/ML (0.00-0.49); PROTHROMBIN TIME PATIENT 13.8 SEC (12.2-14.7)
[2020-10-08 14:14] LABS: BAND NEUTROPHILS 4 %; BASOPHILS % (MANUAL) 0 %; EOSINOPHILS % (MANUAL) 0 %; LYMPHOCYTES % (MANUAL) 6 %; METAMYELOCYTES % 2 %; MONOCYTES % (MANUAL) 0 %; NEUTROPHILS % (MANUAL) 88 %
[2020-10-08 14:15] LABS: RBC MORPH NORMAL
[2020-10-08 14:44] VITALS: BP 95/65
--- NOTE | 2020-10-08 15:15 | Tele-ICU Consult ---
History of Present Illness History of Present Illness Date Seen by Provider: Oct 08, 2020 Time Seen by Provider: 12:03 Date of Admission Allergies and Home Medications Allergies Coded Allergies: No Known Drug Allergies (Unverified , 04/02/12) Home Medications Benzonatate 100 Mg Capsule, 200 MG PO TID PRN for cough Prescribed by: EVERETTE LLOYD on 09/28/20 1631 Past Medical/Social/Family Hx Patient Social History Tobacco Use?: Yes Smoking Status: Never a Smoker Smokeless type used: Chew Use of E-Cig and/or Vaping dev: Unable to obtain Substance use?: Unable to obtain Alcohol Use?: Unable to obtain Pt stated abuse/neglect: Unable to obtain Immunizations Up To Date Tetanus Booster (TDap): Less Than 5 Years Current Status Advance Directives: No Communicates: Verbally Primary Language: Fijian Review of Systems Constitutional: see HPI Sepsis Event Evaluation Height, Weight, BMI Height: 5'7.00" Weight: 250lbs. 0oz. 113.937708xj; 40.69 BMI Method:Stated Exam Exam Patient acknowledged, consented, and participated in this virtual visit which was conducted using real time audio/video Vital Signs Date Time Temp Pulse Resp B/P (MAP) Pulse Ox O2 Delivery O2 Flow Rate FiO2 10/08/20 14:44 71 20 95 90 10/08/20 13:22 75 96 100 10/08/20 13:22 75 119/78 10/08/20 13:00 65 20 119/78 (92) 100 Mechanical Ventilator 100.00 10/08/20 12:36 72 10/08/20 12:00 76 13 94/61 (72) 96 Mechanical Ventilator 100.00 10/08/20 11:26 76 20 96 100 10/08/20 11:21 78 95/65 10/08/20 11:00 85 21 95/62 (73) 95 Mechanical Ventilator 100.00 10/08/20 10:49 88 10/08/20 10:38 Mechanical Ventilator 100 Height & Weight Height: 5'7.00" Weight: 250lbs. 0oz. 113.970891op; 40.69 BMI Method:Stated General Appearance: No Apparent Distress Results Lab Laboratory Tests 10/08/20 13:28 Assessment/Plan Assessment/Plan (Tele-ICU Physician , consultation) Available chart/ vitals / labs / Images reviewed H&P is not available yet Patient's information available about PMH, Shx, Fhx allergy reviewed in EMR. ROS as per chart and RN report Patient admitted 10/06 - ARF /intubated in other facility COVID , , Pfizer x1 09/23 , symptoms 09/28 , Dx 09/28 10/08 - transferred , AC 20 450 +12 100% PAP 30 , plateau 17 Now in ICU, hemodynamically stable Video assessment done using teleICU camera, rest of exam as per RN Discussed with RN. Consultants: Sedation gtt: ( RASS ) propofol 50 VENT SETTINGS. ABG reviewed A/P AHRF / ARDS due to severe COVID19 - intubated 10/06, now on AC 20 450 +12 100% PAP 30 , plateau 17 -prone position if able - conservative fluid strategy (aim for even or negative fluid balance [facility]-Jpcnt[facility]-5/COVID-19 PNA (Pfizer x1 09/23 , symptoms 09/28 , Dx 09/28 ) -Steroids IV - started 10/08 -Hypercoagulable state , DDIMER 0.6 on 10/08 -> lovenox ppx dose , Suspected superimposed bact PNA -empiric abx started on 10/08, cefepime / doxy Cx sputum 10/08 pending Hyperglycemia / newly Dx DM - ISS , close f/up on steroids Hyper TGL emia -TGL 280 on admission to this facility ) - propofol to wean Lines : RIGHT PICC 10/08 , (Central Line Necessity Reviewed) Chapman: 10/06 OG: + Nutrition: Analgesia: Anxiety/ delirium VTE Prophylaxis: nancy 40 q 12 Stress Ulcer Prophylaxis: PPI Glycemic Control: + Plans in collaboration with bedside consultants and IM MDs. Discussed with RN to reach out if any questions or concerns A total of 40 minutes of critical care time was devoted to this patient today, required to treat and/or prevent further deterioration of critical care condition ( as above ) . WENDIE THOMASON MD Oct 08, 2020 15:15
[2020-10-08] MEDS ORDERED: DEXA4TAB PO (15:33)
[2020-10-08] MEDS ORDERED: OMEP40CA6 PO (15:33)
[2020-10-08] MEDS ORDERED: PROM5SYR PO (15:33)
[2020-10-08] MEDS ORDERED: RT-ALBUINH IH (15:33)
[2020-10-08] MEDS ORDERED: BENZ100C18 PO (15:33)
[2020-10-08] MEDS ORDERED: ACET-2267 PO (15:33)
[2020-10-08] MEDS: MIDAZOLAM DRIP PRE-MIX 100 ML IV SCH (16:02)
[2020-10-08] MEDS: RT-ALBUTEROL HFA 8.5 GM INHALER IH SCH ×2 (19:10→23:04)
[2020-10-08 19:11] VITALS: BP 102/62
[2020-10-08 23:04] VITALS: BP 102/68
[2020-10-09] MEDS: ENOXAPARIN 40 MG/0.4 ML (LOVENOX) SYR SC SCH ×3 (00:18→23:53)
[2020-10-09] MEDS: inSUlin (REGULAR) HUMAN 1 UNIT/0.01 ML (CHARGE PER UNIT) SC SCH ×2 (00:18→05:15)
[2020-10-09] MEDS: CEFEPIME INJECTION 1,000 MG in WATER (STERILE) FOR INJECTION 10 ML IV SCH ×5 (00:18→23:53)
[2020-10-09] MEDS: MIDAZOLAM DRIP PRE-MIX 100 ML IV SCH ×3 (00:26→20:35)
[2020-10-09 02:05] VITALS: BP 101/64
[2020-10-09] MEDS: RT-ALBUTEROL HFA 8.5 GM INHALER IH SCH ×6 (02:05→22:12)
[2020-10-09] MEDS ORDERED: DexMEDEtomidine 250 ML DRIP 250 ML IV ONE (03:41)
[2020-10-09] MEDS: DexMEDEtomidine 250 ML DRIP 250 ML IV SCH (03:46)
[2020-10-09 04:28] LABS: ABG BASE EXCESS 5.5 MMOL/L (-2.5-2.5); ABG OXYGEN SATURATION 91 % (94-100); ABG PCO2 53 MMHG (35-45); ABG PH 7.38 (7.37-7.43); ABG PO2 71 MMHG (79-93); ABG TCO2 31.8 MMOL/L (21.0-31.0)
[2020-10-09 04:29] LABS: BASOPHILS % (AUTO) 0 % (0-10); EOSINOPHILS % (AUTO) 0 % (0-10); HEMATOCRIT 39 % (40-54); LYMPHOCYTES # (AUTO) 1.1 10^3/uL (1.0-4.0); LYMPHOCYTES % (AUTO) 12 % (12-44); MEAN CORPUSCULAR HEMOGLOBIN 27 pg (25-34); MEAN CORPUSCULAR HGB CONC 31 g/dL (32-36); MEAN CORPUSCULAR VOLUME 88 fL (80-99); MEAN PLATELET VOLUME 11.3 fL (9.0-12.2); MONOCYTES # (AUTO) 0.3 10^3/uL (0.0-1.0); MONOCYTES % (AUTO) 3 % (0-12); NEUTROPHILS # (AUTO) 7.5 10^3/uL (1.8-7.8); NEUTROPHILS % (AUTO) 80 % (42-75); PLATELET COUNT 220 10^3/uL (130-400); WHITE BLOOD COUNT 9.3 10^3/uL (4.3-11.0)
[2020-10-09 04:38] LABS: ALBUMIN 3.1 GM/DL (3.2-4.5); POTASSIUM 3.7 MMOL/L (3.6-5.0)
[2020-10-09 04:39] LABS: CALCIUM 8.9 MG/DL (8.5-10.1)
[2020-10-09 04:41] LABS: TOTAL PROTEIN 6.7 GM/DL (6.4-8.2)
[2020-10-09 04:43] LABS: BILIRUBIN,TOTAL 0.5 MG/DL (0.1-1.0)
[2020-10-09 04:44] LABS: CREATININE SERUM 0.81 MG/DL (0.60-1.30)
[2020-10-09 04:47] LABS: MAGNESIUM 2.1 MG/DL (1.6-2.4)
[2020-10-09 04:51] LABS: ALLENS TEST POSITIVE; INSPIRED O2 90; PATIENT TEMP 38.2; VENTILATOR YES
[2020-10-09] MEDS: POTASSIUM CL 10MEQ/50ML IVPB 50 ML IV SCH (05:14)
[2020-10-09] MEDS: MAGNESIUM 1 GM/100 ML IVPB 100 ML IV SCH (05:15)
[2020-10-09] MEDS: KCL 20 MEQ TAB (K-DUR) PO SCH (05:15)
--- NOTE | 2020-10-09 06:54 | Occ Therapy Progress Note ---
Therapy Progress Note Pt is currently intubated. OT will continue to monitor pt status and initiate treatment when pt is medically stable and able to actively participate in skilled therapy. LAURA JACKSON Oct 09, 2020 06:54
--- NOTE | 2020-10-09 07:53 | Diagnostic Imaging Report ---
INDICATION: Ventilated patient. Respiratory failure. COMPARISON: 10/08/2020 FINDINGS: Single frontal radiographic view of the chest was obtained and again demonstrates indwelling endotracheal tube below the clavicular heads and above the marizol. Indwelling gastric tube is also seen with tip just below the hiatus. Right upper extremity PICC line tip is heavily obscured, but does extend at least into the SVC. Lungs continue to show scattered patchy and confluent bilateral infiltrates. Overall, aeration is stable. There is no large effusion or pneumothorax. Cardiac silhouette is stable as well. Osseous structures show no acute interval change. IMPRESSION: 1. Lines and tubes as above. 2. Stable bilateral infiltrate. Dictated by: Dictated on workstation # [id number]
[2020-10-09 07:56] VITALS: BP 103/67
--- NOTE | 2020-10-09 08:02 | Physical Therapy Progress Note ---
Therapy Progress Note Patient is currently intubated and sedated. Will monitor and start when appropriate. SHEREEN TREJO PT Oct 09, 2020 08:02
[2020-10-09] MEDS: PANTOPRAZOLE 40 MG (PROTONIX) VIAL IV SCH (08:05)
[2020-10-09] MEDS: DOXYCYCLINE INJECTION 100 MG in NS (IVPB) 100 ML IV SCH ×2 (08:06→20:41)
--- NOTE | 2020-10-09 09:45 | Tele-ICU Progress Note ---
Subjective Date Seen by a Provider: Oct 09, 2020 Time Seen by a Provider: 09:45 Sepsis Event Evaluation Height, Weight, BMI Height: 5'7.00" Weight: 250lbs. 0oz. 113.105741lf; 40.69 BMI Method:Stated Focused Exam Lactate Level 10/08/20 13:28: Lactic Acid Level 0.89 Exam Exam Patient acknowledged, consented, and participated in this virtual visit which was conducted using real time audio/video Vital Signs Date Time Temp Pulse Resp B/P (MAP) Pulse Ox O2 Delivery O2 Flow Rate FiO2 10/09/20 08:14 94 Mechanical Ventilator 90 10/09/20 07:56 56 20 92 90 10/09/20 07:00 58 10/09/20 06:00 37.5 10/09/20 06:00 63 21 104/69 (81) 97 Mechanical Ventilator 90.00 10/09/20 05:00 65 22 95/63 (74) 95 Mechanical Ventilator 90.00 10/09/20 05:00 37.8 10/09/20 04:12 94 Mechanical Ventilator 90 10/09/20 04:00 38.2 10/09/20 04:00 72 27 96/60 (72) 92 Mechanical Ventilator 90.00 10/09/20 03:46 113/71 10/09/20 03:00 64 21 100/61 (74) 94 Mechanical Ventilator 90.00 10/09/20 02:05 68 23 94 90 10/09/20 02:00 66 21 101/62 (75) 93 Mechanical Ventilator 90.00 10/09/20 01:00 68 10/09/20 01:00 68 24 102/66 (78) 92 Mechanical Ventilator 90.00 10/09/20 00:26 70 101/68 10/09/20 00:23 94 Mechanical Ventilator 90 10/09/20 00:18 37.9 10/09/20 00:00 72 23 101/68 (79) 94 Mechanical Ventilator 90.00 10/08/20 23:04 79 22 93 90 10/08/20 23:00 76 21 107/68 (81) 93 Mechanical Ventilator 90.00 10/08/20 22:01 95 Mechanical Ventilator 90.00 10/08/20 22:00 77 24 106/62 (77) 95 Mechanical Ventilator 90.00 10/08/20 21:00 74 22 106/67 (80) 95 Mechanical Ventilator 90.00 10/08/20 20:21 37.6 10/08/20 20:00 76 25 102/64 (77) 91 Mechanical Ventilator 90.00 10/08/20 19:43 90 Mechanical Ventilator 100 10/08/20 19:11 73 23 92 90 10/08/20 19:00 71 10/08/20 19:00 71 23 111/63 (79) 92 Mechanical Ventilator 90.00 10/08/20 19:00 90 Mechanical Ventilator 100.00 10/08/20 18:00 69 24 98/61 (73) 91 Mechanical Ventilator 90.00 10/08/20 17:00 68 23 98/61 (73) 91 Mechanical Ventilator 100.00 10/08/20 16:02 64 110/70 10/08/20 16:00 66 20 110/70 (83) 93 Mechanical Ventilator 100.00 10/08/20 16:00 Mechanical Ventilator 100 10/08/20 15:00 71 20 97/62 (74) 92 Mechanical Ventilator 100.00 10/08/20 14:44 71 20 95 90 10/08/20 14:00 73 20 96/64 (75) 93 Mechanical Ventilator 100.00 10/08/20 13:22 75 96 100 10/08/20 13:22 75 119/78 10/08/20 13:00 65 20 119/78 (92) 100 Mechanical Ventilator 100.00 10/08/20 12:36 72 10/08/20 12:00 76 13 94/61 (72) 96 Mechanical Ventilator 100.00 10/08/20 11:26 76 20 96 100 10/08/20 11:21 78 95/65 10/08/20 11:00 85 21 95/62 (73) 95 Mechanical Ventilator 100.00 10/08/20 10:49 88 10/08/20 10:38 Mechanical Ventilator 100 I & O 10/09/20 07:00 Intake Total 0 ml Output Total 2150 ml Balance -2150 ml Height & Weight Height: 5'7.00" Weight: 250lbs. 0oz. 113.728372fc; 40.69 BMI Method:Stated General Appearance: No Apparent Distress, WD/WN, Chronically ill, Obese, Other (Sedated and intubated) HEENT: Other (Sedated and endotracheal tube in place) Neck: Full Range of Motion, Normal Inspection, Non Tender, Supple, Carotid Bruit Respiratory: Chest Non Tender, Lungs Clear, No Accessory Muscle Use, No Respiratory Distress, Decreased Breath Sounds Cardiovascular: Regular Rate, Rhythm, No Edema, No Gallop, No JVD, No Murmur, Normal Peripheral Pulses Extremity: Normal Capillary Refill, Normal Inspection, No Pedal Edema Skin: Normal Color, Warm/Dry Lymphatic: No Adenopathy Results Lab Laboratory Tests 10/08/20 13:28 10/09/20 04:05 Assessment/Plan Assessment/Plan (Tele-ICU Physician , Progress Note ) Available chart/ vitals / labs / Images reviewed Video assessment done using teleICU camera, rest of exam as per RN Discussed with RN , EXAM PER RN Events overnight : Afebrile I/O = kimberly 1700 Drips: ns 70 Pressors: , hemodynamically stable Sedation gtt: ( RASS -3) versed 10 , presedex 0.03 VENT SETTINGS. AC 20 450 +12 90% PAP 30 , plateau 17 ABG reviewed Consultants: Hospital course: 10/06 - ARF /intubated in other facility COVID , , Pfizer x1 09/23 , symptoms 09/28 , Dx 09/28 10/08 - transferred , AC 20 450 +12 100% PAP 30 , plateau 17 10/09 - AC 20 450 +12 90% PAP 28 , plateau 17 Now in ICU, hemodynamically stable Video assessment done using teleICU camera, rest of exam as per RN Discussed with RN. Consultants: Sedation gtt: ( RASS ) propofol 50 VENT SETTINGS. ABG reviewed A/P AHRF / ARDS due to severe COVID19 - intubated 10/06, now on AC 20 450 +12 90% PAP 30 , plateau 17 -prone position if able - conservative fluid strategy (aim for even or negative fluid balance [facility]-9/COVID-19 PNA (Pfizer x1 09/23 , symptoms 09/28 , Dx 09/28 ) -Steroids IV - started 10/08 -Hypercoagulable state , DDIMER 0.6 on 10/08 -> lovenox ppx dose , Suspected superimposed bact PNA -empiric abx started on 10/08, cefepime / doxy Cx sputum 10/08 pending Hyperglycemia / newly Dx DM - ISS , close f/up on steroids Hyper TGL emia -TGL 280 on admission to this facility ) - propofol off , vrsed Lines : RIGHT PICC 10/08 , (Central Line Necessity Reviewed) Chapman: 10/06 OG: + Nutrition: start 10/09 Analgesia: Anxiety/ delirium VTE Prophylaxis: nancy 40 q 12 Stress Ulcer Prophylaxis: PPI Glycemic Control: + Plans in collaboration with bedside consultants and IM MDs. Discussed with RN to reach out if any questions or concerns A total of 40 minutes of critical care time was devoted to this patient today, required to treat and/or prevent further deterioration of critical care condition ( as above ) . WENDIE THOMASON MD Oct 09, 2020 09:45
[2020-10-09] MEDS: LORazepam INJ 2 MG/ML (ATIVAN) VIAL IVP PRN ×2 (09:48→12:23)
[2020-10-09 11:17] VITALS: BP 114/70
[2020-10-09] MEDS: inSUlin ASPART (NovoLOG) 1 UNIT/0.01 ML (CHARGE PER UNIT) SC SCH ×3 (11:36→23:53)
[2020-10-09] MEDS: PROPOFOL DRIP (ICU) 100 ML IV SCH ×2 (12:23→20:35)
[2020-10-09] MEDS: ACETAMINOPHEN 650 MG SUPP (TYLENOL) PR PRN (12:33)
--- NOTE | 2020-10-09 13:23 | Progress Note ---
NOEM[employer] STUDENT 10/09/20 1323: Subjective Date Seen by a Provider: Oct 09, 2020 Time Seen by a Provider: 09:00 Subjective/Events-last exam Patient remains intubated and sedated on versed and precedex gtts. No pressors. Vent at 90% FIO2, PEEP 12, TV 450, RR 20. Vitals stable per ICU monitor. NG and costa in place. Review of Systems General: Other (unable to assess due to pt. condition) HEENT: Other (unable to assess due to pt. condition) Cardiovascular: Other (unable to assess due to pt. condition) Gastrointestinal: Other (unable to assess due to pt. condition) Genitourinary: Other (unable to assess due to pt. condition) Musculoskeletal: other (unable to assess due to pt. condition) Neurological: Other (unable to assess due to pt. condition) Focused Exam Lactate Level 10/08/20 13:28: Lactic Acid Level 0.89 Objective Exam Last Set of Vital Signs Vital Signs Date Time Temp Pulse Resp B/P (MAP) Pulse Ox O2 Delivery O2 Flow Rate FiO2 10/09/20 12:33 37.8 10/09/20 12:23 62 114/70 10/09/20 12:03 95 Mechanical Ventilator 100 10/09/20 12:00 22 100.00 Capillary Refill : I&O Intake and Output 10/09/20 00:00 Intake Total 0 ml Output Total 1700 ml Balance -1700 ml Intake Oral 0 ml Output Urine Total 850 ml Gastric Drainage Total 850 ml Daily Weight Change No General: Other (Intubated/sedated/Requiring PEEP of 12 and 90% FIO2 in severe distress) HEENT: Atraumatic, Other (Endotracheally intubated/NGT in place) Neck: Supple, No JVD, No Thyromegaly, No LAD Lungs: Other ([place] throughout bilaterally. No wheezing or crackles. Diminished bases anteriorly. ) Heart: Normal S1, Normal S2, No Murmurs, Other (Slightly Bradycardic at 58. ) Abdomen: Normal Bowel Sounds, Soft, Other (obese) Extremities: No Clubbing, No Cyanosis, No Edema, Normal Pulses Skin: No Rashes, No Breakdown, No Significant Lesion Neuro: Other (see general statement) Psych/Mental Status: Other (Sedated) Results Lab Laboratory Tests 10/08/20 13:28: White Blood Count 10.4, Red Blood Count 4.55, Hemoglobin 12.3L, Hematocrit 40, Mean Corpuscular Volume 89, Mean Corpuscular Hemoglobin 27, Mean Corpuscular Hemoglobin Concent 31L, Red Cell Distribution Width 14.0, Platelet Count 197, Mean Platelet Volume 11.2, Immature Granulocyte % (Auto) 3, Neutrophils (%) (Auto) 88H, Lymphocytes (%) (Auto) 7L, Monocytes (%) (Auto) 2, Eosinophils (%) (Auto) 0, Basophils (%) (Auto) 0, Neutrophils # (Auto) 9.2H, Lymphocytes # (Auto) 0.7L, Monocytes # (Auto) 0.2, Eosinophils # (Auto) 0.0, Basophils # (Auto) 0.0, Immature Granulocyte # (Auto) 0.3H, Neutrophils % (Manual) 88, Lymphocytes % (Manual) 6, Monocytes % (Manual) 0, Eosinophils % (Manual) 0, Basophils % (Manual) 0, Metamyelocytes % 2, Band Neutrophils 4, Blood Morphology Comment NORMAL, Prothrombin Time 13.8, INR Comment 1.0, Activated Partial Thromboplast Time 33, D-Dimer 0.60H, Sodium Level 137, Potassium Level 4.3, Chloride Level 102, Carbon Dioxide Level 28, Anion Gap 7, Blood Urea Nitrogen 16, Creatinine 0.78, Estimat Glomerular Filtration Rate 108, BUN/Creatinine Ratio 21, Glucose Level 213H, Lactic Acid Level 0.89, Calcium Level 9.1, Corrected Calcium 9.7, Magnesium Level 2.1, Ferritin 2475.0H, Total Bilirubin 0.5, Aspartate Amino Transf (AST/SGOT) 59H, Alanine Aminotransferase (ALT/SGPT) 40, Alkaline Phosphatase 63, Lactate Dehydrogenase 549H, Creatine Kinase MB 1.0, Troponin I < 0.028, C-Reactive Protein High Sensitivity 13.68H, B-Type Natriuretic Peptide 11.1, Total Protein 7.0, Albumin 3.2, Triglycerides Level 279H 10/08/20 17:01: Glucometer 219H 10/08/20 23:08: Glucometer 147H 10/09/20 04:05: White Blood Count 9.3, Red Blood Count 4.43, Hemoglobin 12.0L, Hematocrit 39L, Mean Corpuscular Volume 88, Mean Corpuscular Hemoglobin 27, Mean Corpuscular Hemoglobin Concent 31L, Red Cell Distribution Width 14.2, Platelet Count 220, Mean Platelet Volume 11.3, Immature Granulocyte % (Auto) 5, Neutrophils (%) (Auto) 80H, Lymphocytes (%) (Auto) 12, Monocytes (%) (Auto) 3, Eosinophils (%) (Auto) 0, Basophils (%) (Auto) 0, Neutrophils # (Auto) 7.5, Lymphocytes # (Auto) 1.1, Monocytes # (Auto) 0.3, Eosinophils # (Auto) 0.0, Basophils # (Auto) 0.0, Immature Granulocyte # (Auto) 0.4H, Sodium Level 143, Potassium Level 3.7, Chloride Level 105, Carbon Dioxide Level 29, Anion Gap 9, Blood Urea Nitrogen 18, Creatinine 0.81, Estimat Glomerular Filtration Rate 104, BUN/Creatinine Ratio 22, Glucose Level 104, Calcium Level 8.9, Corrected Calcium 9.6, Magnesium Level 2.1, Total Bilirubin 0.5, Aspartate Amino Transf (AST/SGOT) 42H, Alanine Aminotransferase (ALT/SGPT) 36, Alkaline Phosphatase 54, Total Protein 6.7, Albumin 3.1L, Blood Gas Puncture Site RIGHT RADIAL, Blood Gas Patient Temperature 38.2, Arterial Blood pH 7.38, Arterial Blood Partial Pressure CO2 53H, Arterial Blood Partial Pressure O2 71L, Arterial Blood HCO3 30H, Arterial Blood Total CO2 31.8H, Arterial Blood Oxygen Saturation 91L, Arterial Blood Base Excess 5.5H, Casper Test POSITIVE, Blood Gas Ventilator Setting YES, Blood Gas Inspired Oxygen 90 10/09/20 11:35: Glucometer 147H Radiology NAME: ALLI [facility] REC#: [id number] PT STATUS: ADM IN : 1975 PHYSICIAN: CYNTHIA LAYNE DO ADMIT DATE: 10/08/20/ICU Signed Date of Exam:10/09/20 CHEST 1 VIEW, AP/PA ONLY INDICATION: Ventilated patient. Respiratory failure. COMPARISON: 10/08/2020 FINDINGS: Single frontal radiographic view of the chest was obtained and again demonstrates indwelling endotracheal tube below the clavicular heads and above the marizol. Indwelling gastric tube is also seen with tip just below the hiatus. Right upper extremity PICC line tip is heavily obscured, but does extend at least into the SVC. Lungs continue to show scattered patchy and confluent bilateral infiltrates. Overall, aeration is stable. There is no large effusion or pneumothorax. Cardiac silhouette is stable as well. Osseous structures show no acute interval change. IMPRESSION: 1. Lines and tubes as above. 2. Stable bilateral infiltrate. Dictated by: Dictated on workstation # [id number] Dict: 10/09/20 0740 Trans: 10/09/20 1149 ENEDINA [id number] Interpreted by: BOOKER SAMPSON MD Electronically signed by: BOOKER SAMPSON MD 10/09/20 1149 Assessment/Plan Assessment/Plan Assess & Plan/Chief Complaint Acute Hypercapneic Hypoxic Respiratory Failure -FIO2 90%, PEEP 12, TV 450, RR 20 -wean vent settings as tolerated -prone per protocol -versed and precedex for sedation COVID-19 PNA -decadron Secondary Bacterial PNA -Cover with cefepime and doxycycline Hypercoagulability secondary to COVID-19 -D dimer elevated at 0.60 on 10-08 -lovenox 40mg q12hr New onset Diabetes Mellitus -Hgb A1C of 9 -accuchecks QID, SSI GI PPX -protonix Obesity Hypertriglyceridemia -continue to monitor -avoid propofol unless necessary Gout -monitor Tobacco use CYNTHIA LAYNE DO 10/10/20 0555: Subjective Subjective/Events-last exam Pt remains on 90% FIO2 and PEEP of 12 Chest X-ray is stable Sugar is 104 ABG 7.38 eICU appreciated Patient tried to rollover when he was prone position requiring sedation increased Patient high risk for ultimate decompensation Reviewed meds and labs Objective Exam General: Other (Intubated/sedated/Requiring PEEP of 12 and 90% FIO2 in no distress) Lungs: Clear to Auscultation Heart: Regular Rate Assessment/Plan Assessment/Plan Assess & Plan/Chief Complaint Assessment: Acute hypoxic respiratory failure due to COVID-19 pneumonia requiring intubation after failing BiPAP and Vapotherm at [facility] Obesity BMI 40 Chewing tobacco user New onset diabetes this admit hemoglobin A1c 9.0 Gout Presumed obstructive sleep apnea Plan: Intubation Sedation eICU appreciated Prognosis guarded 10/09/2020: Supportive care High risk for decompensation Reviewed vent settings Reviewed meds Supervisory-Addendum Brief Verification & Attestation Participated in pt care: history, MDM, physical Personally performed: exam, history, MDM, supervision of care Care discussed with: Medical Student Procedures: n/a Results interpretation: Verified all documentation Verification and Attestation of Medical Student E/M Service A medical student performed and documented this service in my presence. I reviewed and verified all information documented by the medical student and made modifications to such information, when appropriate. I personally performed the physical exam and medical decision making. Cynthia Layne, Oct 10, 2020,05:52 [employer]EM[employer] MED STUDENT Oct 09, 2020 13:23 CYNTHIA LAYNE DO Oct 10, 2020 05:55
[2020-10-09 14:08] VITALS: BP 100/70
[2020-10-09] MEDS: NS IV 1000 ML 1,000 ML IV SCH (14:43)
[2020-10-09 18:30] VITALS: BP 108/68
[2020-10-09 22:12] VITALS: BP 112/81
[2020-10-10 02:08] VITALS: BP 111/74
[2020-10-10] MEDS: RT-ALBUTEROL HFA 8.5 GM INHALER IH SCH ×6 (02:08→22:16)
[2020-10-10 02:45] LABS: BASOPHILS % (AUTO) 0 % (0-10); EOSINOPHILS % (AUTO) 0 % (0-10); HEMATOCRIT 38 % (40-54); HEMOGLOBIN 11.8 g/dL (13.3-17.7); LYMPHOCYTES # (AUTO) 1.2 10^3/uL (1.0-4.0); LYMPHOCYTES % (AUTO) 17 % (12-44); MEAN CORPUSCULAR HEMOGLOBIN 27 pg (25-34); MEAN CORPUSCULAR HGB CONC 31 g/dL (32-36); MEAN CORPUSCULAR VOLUME 88 fL (80-99); MEAN PLATELET VOLUME 11.1 fL (9.0-12.2); MONOCYTES # (AUTO) 0.3 10^3/uL (0.0-1.0); MONOCYTES % (AUTO) 4 % (0-12); NEUTROPHILS # (AUTO) 5.4 10^3/uL (1.8-7.8); NEUTROPHILS % (AUTO) 74 % (42-75); PLATELET COUNT 251 10^3/uL (130-400); WHITE BLOOD COUNT 7.3 10^3/uL (4.3-11.0)
[2020-10-10 02:54] LABS: POTASSIUM 3.7 MMOL/L (3.6-5.0)
[2020-10-10 02:55] LABS: CALCIUM 8.6 MG/DL (8.5-10.1)
[2020-10-10 02:59] LABS: CREATININE SERUM 0.76 MG/DL (0.60-1.30)
[2020-10-10 03:02] LABS: MAGNESIUM 2.1 MG/DL (1.6-2.4)
[2020-10-10 03:15] LABS: ABG BASE EXCESS 4.5 MMOL/L (-2.5-2.5); ABG OXYGEN SATURATION 92 % (94-100); ABG PCO2 44 MMHG (35-45); ABG PH 7.43 (7.37-7.43); ABG PO2 66 MMHG (79-93); ABG TCO2 29.9 MMOL/L (21.0-31.0); ALLENS TEST YES-POS; INSPIRED O2 90%; PATIENT TEMP 37.5; VENTILATOR YES
[2020-10-10] MEDS: LORazepam INJ 2 MG/ML (ATIVAN) VIAL IVP PRN ×3 (03:20→10:21)
[2020-10-10] MEDS: NS IV 1000 ML 1,000 ML IV SCH ×2 (03:20→05:31)
[2020-10-10] MEDS: CEFEPIME INJECTION 1,000 MG in WATER (STERILE) FOR INJECTION 10 ML IV SCH ×4 (05:31→23:44)
[2020-10-10] MEDS: POTASSIUM CL 10MEQ/50ML IVPB 50 ML IV SCH (05:32)
[2020-10-10] MEDS: MAGNESIUM 1 GM/100 ML IVPB 100 ML IV SCH (05:32)
[2020-10-10] MEDS: KCL 20 MEQ TAB (K-DUR) PO SCH (05:32)
[2020-10-10] MEDS: MIDAZOLAM DRIP PRE-MIX 100 ML IV SCH ×2 (05:32→14:19)
[2020-10-10] MEDS: inSUlin ASPART (NovoLOG) 1 UNIT/0.01 ML (CHARGE PER UNIT) SC SCH ×4 (05:34→23:43)
--- NOTE | 2020-10-10 06:42 | Diagnostic Imaging Report ---
REASON FOR EXAMINATION: Intubation. Upright AP portable chest was obtained and compared to yesterday. FINDINGS: ET tube tip is just below the clavicles. Right PICC line remains in place. An NG tube is in place with the tip in the right upper quadrant. Bilateral pulmonary infiltrates consistent with pneumonia. These have increased mostly on the right side. No effusion, pneumothorax or cavitation. IMPRESSION: 1. Support lines and tubes as described. 2. Bilateral pulmonary infiltrates slightly increased on the right side today. Dictated by: Dictated on workstation # [id number]
--- NOTE | 2020-10-10 06:45 | Occ Therapy Progress Note ---
Therapy Progress Note Pt is currently intubated. OT will continue to monitor pt status and initiate treatment when pt is medically stable and able to actively participate in skilled therapy. LAURA JACKSON Oct 10, 2020 06:45
--- NOTE | 2020-10-10 07:35 | Physical Therapy Progress Note ---
Therapy Progress Note Patient is currently sedated and intubated. PT will continue to monitor patient status. SHEREEN TREJO PT Oct 10, 2020 07:35
[2020-10-10 07:51] VITALS: BP 107/66
[2020-10-10] MEDS: PANTOPRAZOLE 40 MG (PROTONIX) VIAL IV SCH (08:16)
[2020-10-10] MEDS: DOXYCYCLINE INJECTION 100 MG in NS (IVPB) 100 ML IV SCH ×2 (08:17→20:49)
[2020-10-10] MEDS ORDERED: FUROSEMIDE 40 MG/4 ML INJ (LASIX) IVP ONE (09:30)
--- NOTE | 2020-10-10 09:45 | Tele-ICU Progress Note ---
Subjective Date Seen by a Provider: Oct 10, 2020 Time Seen by a Provider: 09:45 Sepsis Event Evaluation Height, Weight, BMI Height: 5'7.00" Weight: 250lbs. 0oz. 113.855167og; 40.69 BMI Method:Stated Focused Exam Lactate Level 10/08/20 13:28: Lactic Acid Level 0.89 Exam Exam Patient acknowledged, consented, and participated in this virtual visit which was conducted using real time audio/video Vital Signs Date Time Temp Pulse Resp B/P (MAP) Pulse Ox O2 Delivery O2 Flow Rate FiO2 10/10/20 09:00 37.9 67 22 105/65 (78) 97 Mechanical Ventilator 100.00 10/10/20 08:00 37.8 63 22 104/65 (77) 90 Mechanical Ventilator 100.00 10/10/20 08:00 92 Mechanical Ventilator 100 10/10/20 07:51 62 22 92 100 10/10/20 07:00 60 10/10/20 07:00 37.6 56 23 106/68 (82) 93 Mechanical Ventilator 100.00 10/10/20 06:00 37.4 56 23 106/67 (80) 91 Mechanical Ventilator 100.00 10/10/20 05:32 97/58 10/10/20 05:00 37.4 64 24 94/63 (73) 93 Mechanical Ventilator 95.00 10/10/20 04:00 37.4 56 23 96/64 (75) 95 Mechanical Ventilator 95.00 10/10/20 04:00 92 Mechanical Ventilator 90 10/10/20 03:00 37.5 60 23 90/56 (67) 92 Mechanical Ventilator 95.00 10/10/20 02:08 56 23 93 95 10/10/20 02:00 37.4 57 24 114/76 (89) 93 Mechanical Ventilator 95.00 10/10/20 01:00 62 10/10/20 01:00 37.3 62 23 112/76 (88) 93 Mechanical Ventilator 90.00 10/10/20 00:00 37.4 75 23 105/62 (76) 91 Mechanical Ventilator 90.00 10/09/20 23:55 93 Mechanical Ventilator 90 10/09/20 23:00 37.4 57 23 114/78 (90) 93 Mechanical Ventilator 90.00 10/09/20 22:12 56 24 93 90 10/09/20 22:00 37.4 56 22 117/80 (92) 92 Mechanical Ventilator 90.00 10/09/20 21:00 37.3 64 24 111/73 (86) 93 Mechanical Ventilator 90.00 10/09/20 20:35 111/70 10/09/20 20:35 111/70 10/09/20 20:00 93 Mechanical Ventilator 90 10/09/20 20:00 37.3 58 21 112/71 (85) 93 Mechanical Ventilator 90.00 10/09/20 19:00 60 10/09/20 19:00 37.4 93 Mechanical Ventilator 90.00 10/09/20 19:00 37.3 58 21 112/74 (87) 90 Mechanical Ventilator 90.00 10/09/20 18:30 58 26 93 90 10/09/20 18:00 58 18 108/63 (78) 93 Mechanical Ventilator 90.00 10/09/20 17:00 54 21 116/76 (89) 94 Mechanical Ventilator 90.00 10/09/20 16:03 Mechanical Ventilator 90.00 10/09/20 16:03 93 Mechanical Ventilator 90 10/09/20 16:00 55 22 111/71 (84) 92 Mechanical Ventilator 100.00 10/09/20 15:00 58 22 110/72 (85) 93 Mechanical Ventilator 100.00 10/09/20 14:08 62 23 94 90 10/09/20 14:00 58 22 112/72 (85) 96 Mechanical Ventilator 100.00 10/09/20 13:03 37.2 10/09/20 13:00 60 22 109/70 (83) 93 Mechanical Ventilator 100.00 10/09/20 13:00 61 10/09/20 12:33 37.8 10/09/20 12:23 62 114/70 10/09/20 12:03 95 Mechanical Ventilator 100 10/09/20 12:00 64 22 129/47 (74) 94 Mechanical Ventilator 100.00 10/09/20 11:17 62 28 95 90 10/09/20 11:00 63 114 114/70 (85) 70 Mechanical Ventilator 100.00 10/09/20 10:26 59 20 109/67 10/09/20 10:13 Mechanical Ventilator 100.00 10/09/20 10:00 56 22 109/67 (81) 92 Mechanical Ventilator 90.00 I & O 10/10/20 07:00 Intake Total 2985 ml Output Total 1775 ml Balance 1210 ml Height & Weight Height: 5'7.00" Weight: 250lbs. 0oz. 113.598805id; 40.69 BMI Method:Stated General Appearance: No Apparent Distress, WD/WN, Chronically ill, Obese, Other (Sedated and intubated) HEENT: Other (Sedated and endotracheal tube in place) Neck: Full Range of Motion, Normal Inspection, Non Tender, Supple, Carotid Bruit Respiratory: Chest Non Tender, Lungs Clear, No Accessory Muscle Use, No Respiratory Distress, Decreased Breath Sounds Cardiovascular: Regular Rate, Rhythm, No Edema, No Gallop, No JVD, No Murmur, Normal Peripheral Pulses Extremity: Normal Capillary Refill, Normal Inspection, No Pedal Edema Skin: Normal Color, Warm/Dry Lymphatic: No Adenopathy Results Lab Laboratory Tests 10/08/20 13:28 10/09/20 04:05 10/10/20 02:31 Assessment/Plan Assessment/Plan (Tele-ICU Physician , Progress Note ) Available chart/ vitals / labs / Images reviewed Video assessment done using teleICU camera, rest of exam as per RN Discussed with RN , EXAM PER RN Events overnight : Afebrile I/O = kimberly 1700 Drips: ns 70 Pressors: , hemodynamically stable Sedation gtt: ( RASS -3) versed 10 , presedex 0.03 VENT SETTINGS. AC 20 450 +12 90% PAP 30 , plateau 17 ABG reviewed Consultants: Hospital course: 10/06 - ARF /intubated in other facility COVID , , Pfizer x1 09/23 , symptoms 09/28 , Dx 09/28 10/08 - transferred , AC 20 450 +12 100% PAP 30 , plateau 17 10/09 - AC 20 450 +12 90% PAP 28 , plateau 17 10/10-AC 20 450 +12 100 % PAP 32 Now in ICU, hemodynamically stable Video assessment done using teleICU camera, rest of exam as per RN Discussed with RN. Consultants: Sedation gtt: ( RASS ) propofol 50 VENT SETTINGS. AC 20 450 +12 100 % PAP 32 ABG reviewed A/P AHRF / ARDS due to severe COVID19 - intubated 10/06, now INCREASED NEED FOR 02 - AC 20 450 +12 100 % PAP 32 -prone position dailu 16 h - needs more seation with proning - conservative fluid strategy (aim for even or negative fluid balance - TRY LASIX TODAY , STOP IVF ZANU-Lmdkjfgnrog-8/COVID-19 PNA (Pfizer x1 09/23 , symptoms 09/28 , Dx 09/28 ) -Steroids IV - started 10/08 -Hypercoagulable state , DDIMER 0.6 on 10/08 -> lovenox ppx dose , Suspected superimposed bact PNA -empiric abx started on 10/08, cefepime / doxy Cx sputum 10/08 pending ? Hyperglycemia / newly Dx DM - ISS , close f/up on steroids Hyper TGL emia -TGL 280 on admission to this facility ) - propofol resumed at night for increaded agitation - xu bowens Lines : RIGHT PICC 10/08 , (Central Line Necessity Reviewed) Chapman: 10/06 OG: + Nutrition: start 10/09 - tolerted Analgesia: Anxiety/ delirium VTE Prophylaxis: nancy 40 q 12 Stress Ulcer Prophylaxis: PPI Glycemic Control: + Plans in collaboration with bedside consultants and IM MDs. Discussed with RN to reach out if any questions or concerns A total of 40 minutes of critical care time was devoted to this patient today, required to treat and/or prevent further deterioration of critical care con dition ( as above ) . WENDIE THOMASON MD Oct 10, 2020 09:45
[2020-10-10] MEDS: DexMEDEtomidine 250 ML DRIP 250 ML IV SCH (10:21)
[2020-10-10] MEDS: ACETAMINOPHEN 650 MG SUPP (TYLENOL) PR PRN (11:04)
[2020-10-10] MEDS: PROPOFOL DRIP (ICU) 100 ML IV SCH ×2 (11:05→20:54)
--- NOTE | 2020-10-10 11:33 | Progress Note - Hospitalist ---
Subjective HPI/CC On Admission Date Seen by Provider: Oct 10, 2020 Time Seen by Provider: 11:30 CC: Covid-19 pneumonia with respiratory failure requiring intubation at [facility] ICU HPI: This is a 45yoWM who had no past medical history until he was admitted to the ER noted to have new onset DM, HgbA1C of 9, with presumed EMANUEL, who was swabbed, positive for Covid, but had a major decline in status within the night with severe respiratory fatigue requiring intubation. Currently, he is now on PEEP of 12, FIO2 of 100% and will review ABG and I appreciate pulmonology consultation. I updated the in detail before transferring to [facility]. Subjective/Events-last exam Pt still remains on the vent No significant change Overall stable but has grave prognosis Checked meds and labs Focused Exam Lactate Level 10/08/20 13:28: Lactic Acid Level 0.89 Objective Exam Vital Signs Vital Signs Date Time Temp Pulse Resp B/P (MAP) Pulse Ox O2 Delivery O2 Flow Rate FiO2 10/11/20 06:00 38.0 66 21 100/71 (81) 95 Mechanical Ventilator 90.00 10/11/20 03:45 100 Capillary Refill : General Appearance: No Apparent Distress, WD/WN, Chronically ill, Obese, Other (Sedated and intubated) Respiratory: No Accessory Muscle Use, No Respiratory Distress, Decreased Breath Sounds Cardiovascular: Regular Rate, Rhythm Results/Procedures Lab Laboratory Tests 10/11/20 02:25 Patient resulted labs reviewed. Assessment/Plan Assessment and Plan Assess & Plan/Chief Complaint Assessment: Acute hypoxic respiratory failure due to COVID-19 pneumonia requiring intubation after failing BiPAP and Vapotherm at [facility] Obesity BMI 40 Chewing tobacco user New onset diabetes this admit hemoglobin A1c 9.0 Gout Presumed obstructive sleep apnea Plan: Intubation Sedation eICU appreciated Prognosis guarded 10/10/2020: Supportive care Intubation to be maintained Appreciate eICU Prognosis guarded Diagnosis/Problems Diagnosis/Problems (1) COVID-19 Status: Acute MIKAELA LAYNE DO Oct 10, 2020 11:33
[2020-10-10 11:54] VITALS: BP 110/80
[2020-10-10] MEDS: ENOXAPARIN 40 MG/0.4 ML (LOVENOX) SYR SC SCH ×2 (12:35→23:44)
[2020-10-10] MEDS: LORazepam INJECTION FOR DRIP 20 MG in D5W 100 ML IVPB 90 ML IV SCH ×2 (12:36→20:54)
[2020-10-10 15:52] VITALS: BP 112/71
[2020-10-10 18:28] VITALS: BP 109/72
[2020-10-10 22:17] VITALS: BP 113/78
[2020-10-11] MEDS: MIDAZOLAM DRIP PRE-MIX 100 ML IV SCH ×2 (02:14→12:45)
[2020-10-11] MEDS: ACETAMINOPHEN 650 MG SUPP (TYLENOL) PR PRN ×2 (02:14→20:51)
[2020-10-11 02:32] LABS: BASOPHILS % (AUTO) 0 % (0-10); EOSINOPHILS % (AUTO) 0 % (0-10); HEMATOCRIT 39 % (40-54); HEMOGLOBIN 12.4 g/dL (13.3-17.7); LYMPHOCYTES # (AUTO) 1.6 10^3/uL (1.0-4.0); LYMPHOCYTES % (AUTO) 18 % (12-44); MEAN CORPUSCULAR HEMOGLOBIN 28 pg (25-34); MEAN CORPUSCULAR HGB CONC 32 g/dL (32-36); MEAN CORPUSCULAR VOLUME 88 fL (80-99); MEAN PLATELET VOLUME 10.8 fL (9.0-12.2); MONOCYTES # (AUTO) 0.3 10^3/uL (0.0-1.0); MONOCYTES % (AUTO) 4 % (0-12); NEUTROPHILS # (AUTO) 6.2 10^3/uL (1.8-7.8); NEUTROPHILS % (AUTO) 72 % (42-75); PLATELET COUNT 268 10^3/uL (130-400); WHITE BLOOD COUNT 8.7 10^3/uL (4.3-11.0)
[2020-10-11 02:54] LABS: POTASSIUM 3.7 MMOL/L (3.6-5.0)
[2020-10-11 02:55] LABS: CALCIUM 8.6 MG/DL (8.5-10.1)
[2020-10-11 03:00] LABS: CREATININE SERUM 0.75 MG/DL (0.60-1.30)
[2020-10-11] MEDS: DexMEDEtomidine 250 ML DRIP 250 ML IV SCH ×2 (03:22→20:51)
[2020-10-11] MEDS: MAGNESIUM 1 GM/100 ML IVPB 100 ML IV SCH (03:31)
[2020-10-11] MEDS: KCL 20 MEQ TAB (K-DUR) PO SCH (03:31)
[2020-10-11] MEDS: POTASSIUM CL 10MEQ/50ML IVPB 50 ML IV SCH (03:31)
[2020-10-11 04:30] LABS: ABG BASE EXCESS 5.9 MMOL/L (-2.5-2.5); ABG OXYGEN SATURATION 94 % (94-100); ABG PCO2 45 MMHG (35-45); ABG PH 7.44 (7.37-7.43); ABG PO2 79 MMHG (79-93); ABG TCO2 31.2 MMOL/L (21.0-31.0)
[2020-10-11 04:32] LABS: ALLENS TEST YES-POS; INSPIRED O2 90%; PATIENT TEMP 37.8; VENTILATOR YES
[2020-10-11] MEDS: CEFEPIME INJECTION 1,000 MG in WATER (STERILE) FOR INJECTION 10 ML IV SCH ×4 (05:42→23:42)
[2020-10-11] MEDS: inSUlin ASPART (NovoLOG) 1 UNIT/0.01 ML (CHARGE PER UNIT) SC SCH ×4 (05:43→23:45)
--- NOTE | 2020-10-11 06:44 | Progress Note - Hospitalist ---
Subjective HPI/CC On Admission Date Seen by Provider: Oct 11, 2020 Time Seen by Provider: 11:30 CC: Covid-19 pneumonia with respiratory failure requiring intubation at [facility] [place] HPI: This is a 45yoWM who had no past medical history until he was admitted to the ER noted to have new onset DM, HgbA1C of 9, with presumed EMANUEL, who was swabbed, positive for Covid, but had a major decline in status within the night with severe respiratory fatigue requiring intubation. Currently, he is now on PEEP of 12, FIO2 of 100% and will review ABG and I appreciate pulmonology consultation. I updated the in detail before transferring to [facility]. Subjective/Events-last exam Patient remains intubated Prone position currently Check meds and labs Fever did occur and pancultured Yeast shows in sputum so we will start Eraxis Focused Exam Lactate Level Objective Exam Vital Signs Vital Signs Date Time Temp Pulse Resp B/P (MAP) Pulse Ox O2 Delivery O2 Flow Rate FiO2 10/12/20 06:00 37.9 69 24 97/64 (75) 94 Mechanical Ventilator 80.00 10/12/20 03:45 90 Capillary Refill : Less Than 3 Seconds General Appearance: Chronically ill, Obese, Other (Intubated and sedated) Respiratory: No Accessory Muscle Use, No Respiratory Distress, Decreased Breath Sounds Cardiovascular: Regular Rate, Rhythm Results/Procedures Lab Laboratory Tests 10/12/20 02:10 Patient resulted labs reviewed. Assessment/Plan Assessment and Plan Assess & Plan/Chief Complaint Assessment: Acute hypoxic respiratory failure due to COVID-19 pneumonia requiring intubation after failing BiPAP and Vapotherm at [facility] Obesity BMI 40 Chewing tobacco user New onset diabetes this admit hemoglobin A1c 9.0 Gout Presumed obstructive sleep apnea Plan: Intubation Sedation eICU appreciated Prognosis guarded 10/10/2020: Supportive care Intubation to be maintained Appreciate eICU Prognosis guarded 10/11/2020: Maintain intubation Poor prognosis Add Eraxis Diagnosis/Problems Diagnosis/Problems (1) COVID-19 Status: Acute MIKAELA LAYNE DO Oct 11, 2020 06:44
[2020-10-11 07:05] VITALS: BP 90/70
[2020-10-11] MEDS: RT-ALBUTEROL HFA 8.5 GM INHALER IH SCH ×5 (07:05→22:31)
[2020-10-11] MEDS: PANTOPRAZOLE 40 MG (PROTONIX) VIAL IV SCH (08:19)
[2020-10-11] MEDS: DOXYCYCLINE INJECTION 100 MG in NS (IVPB) 100 ML IV SCH ×2 (08:21→19:52)
[2020-10-11] MEDS: LORazepam INJECTION FOR DRIP 20 MG in D5W 100 ML IVPB 90 ML IV SCH ×2 (08:21→08:27)
[2020-10-11] MEDS: NS IV 1000 ML 1,000 ML IV SCH ×2 (08:33→11:19)
--- NOTE | 2020-10-11 08:37 | Diagnostic Imaging Report ---
INDICATION: Shortness of breath. Comparison is made with prior examination from 10/10/2020. FINDINGS: The heart size is normal. There are patchy bilateral pulmonary infiltrates. There is no pleural effusion or pneumothorax. The mediastinum is unremarkable. The lines and tubes are in satisfactory position. IMPRESSION: Patchy bilateral pulmonary infiltrates suspect for atypical pneumonia likely Covid. Recommend clinical correlation. Dictated by: Dictated on workstation # [id number]
--- NOTE | 2020-10-11 08:53 | Tele-ICU Progress Note ---
Subjective Date Seen by a Provider: Oct 11, 2020 Time Seen by a Provider: 08:52 Subjective/Events-last exam Patient with Covid19 pneumonia intubated on 10/06/2020. Currently on mechanical ventilation. Apparently last night he developed low fever which is not responsive to Tylenol. Blood pressure is stable. Urine output is good. Sepsis Event Evaluation Height, Weight, BMI Height: 5'7.00" Weight: 250lbs. 0oz. 113.367953ok; 40.69 BMI Method:Stated Focused Exam Lactate Level 10/08/20 13:28: Lactic Acid Level 0.89 Exam Exam Patient acknowledged, consented, and participated in this virtual visit which w as conducted using real time audio/video Vital Signs Date Time Temp Pulse Resp B/P (MAP) Pulse Ox O2 Delivery O2 Flow Rate FiO2 10/11/20 08:39 94 Mechanical Ventilator 90 10/11/20 08:27 70 24 99/68 10/11/20 08:00 38.4 70 24 99/68 (78) 94 Mechanical Ventilator 90.00 10/11/20 07:05 70 22 94 90 10/11/20 07:00 38.3 67 23 98/70 (79) 94 Mechanical Ventilator 90.00 10/11/20 07:00 70 10/11/20 06:00 38.0 66 21 100/71 (81) 95 Mechanical Ventilator 90.00 10/11/20 05:57 Mechanical Ventilator 90.00 10/11/20 05:00 37.9 69 23 101/70 (80) 93 Mechanical Ventilator 80.00 10/11/20 04:26 Mechanical Ventilator 80.00 10/11/20 04:19 37.8 Mechanical Ventilator 90.00 10/11/20 04:00 37.7 56 21 102/74 (83) 95 Mechanical Ventilator 100.00 10/11/20 03:45 92 Mechanical Ventilator 100 10/11/20 03:22 70 97/65 10/11/20 03:00 Mechanical Ventilator 100.00 10/11/20 03:00 37.9 63 20 101/68 (79) 96 Mechanical Ventilator 100.00 10/11/20 02:44 38.0 10/11/20 02:14 61 20 106/74 10/11/20 02:14 38.0 10/11/20 02:08 38.0 Mechanical Ventilator 70.00 10/11/20 02:00 38.0 58 21 105/76 (86) 94 Mechanical Ventilator 75.00 10/11/20 01:00 37.8 54 22 109/75 (86) 93 Mechanical Ventilator 75.00 10/11/20 01:00 60 10/11/20 00:00 37.7 59 22 106/75 (85) 92 Mechanical Ventilator 75.00 10/10/20 23:47 37.7 20 94 Mechanical Ventilator 75.00 10/10/20 23:45 94 Mechanical Ventilator 75 10/10/20 23:00 37.8 59 22 108/74 (85) 95 Mechanical Ventilator 80.00 10/10/20 22:17 51 22 95 80 10/10/20 22:00 37.8 51 21 113/78 (90) 95 Mechanical Ventilator 80.00 10/10/20 21:00 37.7 52 20 113/76 (88) 96 Mechanical Ventilator 80.00 10/10/20 20:54 54 20 118/75 10/10/20 20:54 54 118/75 10/10/20 20:50 97 Mechanical Ventilator 80.00 10/10/20 20:00 37.7 53 22 115/76 (89) 96 Mechanical Ventilator 90.00 10/10/20 19:37 98 Mechanical Ventilator 90.00 10/10/20 19:35 96 Mechanical Ventilator 90 10/10/20 19:30 37.7 10/10/20 19:00 37.6 53 20 110/75 (87) 95 Mechanical Ventilator 100.00 10/10/20 19:00 60 10/10/20 18:28 57 21 95 100 10/10/20 18:00 37.6 56 21 114/77 (89) 94 Mechanical Ventilator 100.00 10/10/20 17:00 37.6 59 23 109/74 (86) 95 Mechanical Ventilator 100.00 10/10/20 16:05 37.7 10/10/20 16:00 37.7 63 22 109/68 (82) 93 Mechanical Ventilator 100.00 10/10/20 15:52 72 23 91 100 10/10/20 15:42 95 Mechanical Ventilator 100 10/10/20 15:00 37.7 63 23 108/72 (84) 95 Mechanical Ventilator 100.00 10/10/20 14:19 61 21 110/70 10/10/20 14:00 37.9 58 23 107/71 (84) 94 Mechanical Ventilator 100.00 10/10/20 13:00 38 62 21 104/69 (83) 95 Mechanical Ventilator 100.00 10/10/20 13:00 64 10/10/20 12:48 95 Mechanical Ventilator 100 10/10/20 12:36 62 23 111/75 10/10/20 12:00 38.0 61 25 109/73 (85) 90 Mechanical Ventilator 100.00 10/10/20 11:54 68 25 94 100 10/10/20 11:34 38.1 10/10/20 11:05 58 108/70 10/10/20 11:04 38.0 10/10/20 11:00 38.0 60 18 108/70 (83) 92 Mechanical Ventilator 100.00 10/10/20 10:21 70 101/67 10/10/20 10:00 38.2 70 25 106/64 (78) 97 Mechanical Ventilator 100.00 10/10/20 09:00 37.9 67 22 105/65 (78) 97 Mechanical Ventilator 100.00 I & O 10/11/20 07:00 Intake Total 1629 ml Output Total 4970 ml Balance -3341 ml Height & Weight Height: 5'7.00" Weight: 250lbs. 0oz. 113.869760xs; 40.69 BMI Method:Stated General Appearance: No Apparent Distress, WD/WN, Chronically ill, Obese, Other (Sedated and intubated) HEENT: Other (Sedated and endotracheal tube in place) Neck: Full Range of Motion, Normal Inspection, Non Tender, Supple, Carotid Bruit Respiratory: No Accessory Muscle Use, No Respiratory Distress, Decreased Breath Sounds Cardiovascular: Regular Rate, Rhythm Capillary Refill: Less Than 3 Seconds Extremity: Normal Capillary Refill, Normal Inspection, No Pedal Edema Skin: Normal Color, Warm/Dry Lymphatic: No Adenopathy Other comments pe per RN Results Lab Laboratory Tests 10/10/20 02:31 10/11/20 02:25 Meds reviewed Radiology cxr reviewed Assessment/Plan Assessment/Plan 1. Acute hypoxic respiratory failure secondary to Covid19 pneumonia. Intubated on 10/06/2020 at a outside facility. 2. Covid19 pneumonia 3. Suspected superimposed bacterial pneumonia 4. Hyperglycemia due to recently diagnosed with diabetes mellitus 5. Hypertriglyceridemia Recommendations patient currently not ready for weaning from mechanical ventilation hence we will continue vent support with the tidal volume 450/respiratory rate 20 PEEP 12 and FiO2 90%. 2. We will decrease IV fluids to 20 cc/h 3. We will get a blood cultures and urine cultures. 4. Continue DVT prophylaxis and ulcer prophylaxis Critical Care: Critically Ill Patient Time spent with patient (mins): 35 OCTAVIA KNOX MD Oct 11, 2020 08:53
[2020-10-11] MEDS: ACETAMINOPHEN 325 MG TABLET PO PRN (08:57)
[2020-10-11 11:07] VITALS: BP 82/65
[2020-10-11] MEDS: PROPOFOL DRIP (ICU) 100 ML IV SCH ×2 (11:13→20:51)
[2020-10-11] MEDS: ENOXAPARIN 40 MG/0.4 ML (LOVENOX) SYR SC SCH ×2 (11:14→23:42)
[2020-10-11 11:42] LABS: BILIRUBIN,URINE NEGATIVE (NEGATIVE); CLARITY,URINE CLEAR; COLOR,URINE DARK YELLOW; GLUCOSE, URINE (UA) NEGATIVE (NEGATIVE); KETONES,URINE NEGATIVE (NEGATIVE); LEUKOCYTE ESTERASE ,URINE NEGATIVE (NEGATIVE); NITRITE,URINE NEGATIVE (NEGATIVE); PROTEIN,URINE NEGATIVE (NEGATIVE)
[2020-10-11] MEDS ORDERED: ANIDULAFUNGIN INJECTION 200 MG in NS (IVPB) 250 ML IV NR (12:00)
[2020-10-11 12:14] LABS: RBC,URINE 0-2 /HPF
[2020-10-11 12:15] LABS: BACTERIA,URINE FEW /HPF
[2020-10-11 12:16] LABS: YEAST,URINE MODERATE /HPF
[2020-10-11 14:36] VITALS: BP 102/75
[2020-10-11 18:20] VITALS: BP 110/76
[2020-10-11 22:31] VITALS: BP 104/74
[2020-10-12] MEDS: NS IV 1000 ML 1,000 ML IV SCH (02:14)
[2020-10-12 02:19] VITALS: BP 101/73
[2020-10-12] MEDS: RT-ALBUTEROL HFA 8.5 GM INHALER IH SCH ×6 (02:19→22:37)
[2020-10-12 02:27] LABS: BASOPHILS % (AUTO) 0 % (0-10); EOSINOPHILS # (AUTO) 0.1 10^3/uL (0.0-0.3); EOSINOPHILS % (AUTO) 1 % (0-10); HEMATOCRIT 42 % (40-54); LYMPHOCYTES # (AUTO) 1.7 10^3/uL (1.0-4.0); LYMPHOCYTES % (AUTO) 17 % (12-44); MEAN CORPUSCULAR HEMOGLOBIN 27 pg (25-34); MEAN CORPUSCULAR HGB CONC 31 g/dL (32-36); MEAN CORPUSCULAR VOLUME 88 fL (80-99); MONOCYTES # (AUTO) 0.3 10^3/uL (0.0-1.0); MONOCYTES % (AUTO) 3 % (0-12); NEUTROPHILS # (AUTO) 7.4 10^3/uL (1.8-7.8); NEUTROPHILS % (AUTO) 74 % (42-75); PLATELET COUNT 285 10^3/uL (130-400)
[2020-10-12 02:37] LABS: CALCIUM 9.2 MG/DL (8.5-10.1)
[2020-10-12 02:41] LABS: CREATININE SERUM 0.73 MG/DL (0.60-1.30)
[2020-10-12 02:43] LABS: MAGNESIUM 2.2 MG/DL (1.6-2.4)
[2020-10-12] MEDS: LORazepam INJECTION FOR DRIP 20 MG in D5W 100 ML IVPB 90 ML IV SCH ×3 (03:23→21:15)
[2020-10-12] MEDS: POTASSIUM CL 10MEQ/50ML IVPB 50 ML IV SCH (04:18)
[2020-10-12] MEDS: MAGNESIUM 1 GM/100 ML IVPB 100 ML IV SCH (04:18)
[2020-10-12] MEDS: inSUlin ASPART (NovoLOG) 1 UNIT/0.01 ML (CHARGE PER UNIT) SC SCH ×4 (04:18→22:55)
[2020-10-12] MEDS: KCL 20 MEQ TAB (K-DUR) PO SCH (04:18)
[2020-10-12 05:02] LABS: ABG BASE EXCESS 5.9 MMOL/L (-2.5-2.5); ABG OXYGEN SATURATION 95 % (94-100); ABG PCO2 47 MMHG (35-45); ABG PH 7.43 (7.37-7.43); ABG PO2 79 MMHG (79-93); ABG TCO2 31.4 MMOL/L (21.0-31.0)
[2020-10-12 05:03] LABS: ALLENS TEST YES-POS
[2020-10-12] MEDS: CEFEPIME INJECTION 1,000 MG in WATER (STERILE) FOR INJECTION 10 ML IV SCH ×4 (05:03→22:55)
[2020-10-12 05:04] LABS: INSPIRED O2 80%; PATIENT TEMP 38; VENTILATOR YES
[2020-10-12 07:27] VITALS: BP 93/63
--- NOTE | 2020-10-12 07:55 | Diagnostic Imaging Report ---
INDICATION: Respiratory difficulty. COMPARISON: 10/11/2020 FINDINGS: The heart size is normal. There are bilateral pulmonary infiltrates. There is no pleural effusion or pneumothorax. ET and NG tubes remain in place. IMPRESSION: Persistent diffuse bilateral pulmonary infiltrates, left slightly greater than right. Dictated by: Dictated on workstation # [id number]
[2020-10-12] MEDS: PANTOPRAZOLE 40 MG (PROTONIX) VIAL IV SCH (08:34)
[2020-10-12] MEDS: DOXYCYCLINE INJECTION 100 MG in NS (IVPB) 100 ML IV SCH ×2 (08:35→20:10)
[2020-10-12] MEDS ORDERED: ANIDULAFUNGIN INJECTION 100 MG in NS (IVPB) 100 ML IV SCH (09:00)
--- NOTE | 2020-10-12 09:09 | Tele-ICU Progress Note ---
Subjective Date Seen by a Provider: Oct 12, 2020 Time Seen by a Provider: 09:03 Subjective/Events-last exam 45 yo M on vent, d7, on AC 20 Vt 450 FiO2 80%, PEEP 14, getting pronned CXR still shows diffuse infiltrates, suspect superimposed bacterial PNA on IV doxy, cefepime, IV Decadron On IV propofol only on 10 for sedation but TG today 406, Also on IV Ativan, Has IDDM, on Detimir 20 bid, also Lovenox 40 bid, d dimer was ok, On anti fungal Rx, grew years on sputum culture Sepsis Event Evaluation Height, Weight, BMI Height: 5'7.00" Weight: 250lbs. 0oz. 113.848586nq; 40.69 BMI Method:Stated Exam Exam Patient acknowledged, consented, and participated in this virtual visit which was conducted using real time audio/video Vital Signs Date Time Temp Pulse Resp B/P (MAP) Pulse Ox O2 Delivery O2 Flow Rate FiO2 10/12/20 08:45 92 Mechanical Ventilator 80 10/12/20 08:00 38.4 74 24 98/68 (78) 94 Mechanical Ventilator 80.00 10/12/20 07:38 38.3 10/12/20 07:27 72 24 93 80 10/12/20 07:00 38.2 71 24 92/64 (75) 93 Mechanical Ventilator 80.00 10/12/20 07:00 72 10/12/20 06:00 37.9 69 24 97/64 (75) 94 Mechanical Ventilator 80.00 10/12/20 05:00 38.0 67 26 101/69 (80) 91 Mechanical Ventilator 80.00 10/12/20 04:47 Mechanical Ventilator 80.00 10/12/20 04:45 71 26 91 10/12/20 04:00 38.0 62 23 106/71 (83) 94 Mechanical Ventilator 90.00 10/12/20 03:45 93 Mechanical Ventilator 90 10/12/20 03:24 Mechanical Ventilator 90.00 10/12/20 03:23 61 20 103/72 10/12/20 03:00 Mechanical Ventilator 100.00 10/12/20 03:00 38.1 65 24 104/71 (82) 93 Mechanical Ventilator 100.00 10/12/20 02:19 66 25 91 80 10/12/20 02:11 Mechanical Ventilator 80.00 10/12/20 02:00 38.1 61 24 101/73 (82) 92 Mechanical Ventilator 70.00 10/12/20 01:00 61 10/12/20 01:00 38.1 61 23 108/76 (87) 94 Mechanical Ventilator 70.00 10/12/20 00:00 37.9 61 20 108/77 (87) 93 Mechanical Ventilator 70.00 10/11/20 23:40 37.9 20 Mechanical Ventilator 70.00 10/11/20 23:40 93 Mechanical Ventilator 70 10/11/20 23:00 37.8 61 21 106/76 (86) 94 Mechanical Ventilator 80.00 10/11/20 22:31 61 23 93 80 10/11/20 22:25 Mechanical Ventilator 80.00 10/11/20 22:00 37.9 58 20 103/73 (83) 94 Mechanical Ventilator 60.00 10/11/20 21:20 37.7 10/11/20 21:00 37.9 57 21 107/76 (86) 93 Mechanical Ventilator 60.00 10/11/20 20:51 54 108/78 10/11/20 20:51 54 108/78 10/11/20 20:51 37.9 10/11/20 20:00 37.9 58 22 108/78 (88) 93 Mechanical Ventilator 60.00 10/11/20 19:45 93 Mechanical Ventilator 60 10/11/20 19:40 38.0 56 20 95 Mechanical Ventilator 60.00 10/11/20 19:00 60 10/11/20 19:00 37.9 55 22 109/77 (88) 95 Mechanical Ventilator 70.00 10/11/20 18:20 55 22 95 70 10/11/20 18:00 37.8 56 24 108/76 (87) 94 Mechanical Ventilator 70.00 10/11/20 17:53 94 Mechanical Ventilator 70.00 10/11/20 17:00 37.8 56 22 110/73 (85) 97 Mechanical Ventilator 80.00 10/11/20 16:00 37.9 63 21 107/73 (84) 96 Mechanical Ventilator 80.00 10/11/20 15:49 96 Mechanical Ventilator 80 10/11/20 15:48 Mechanical Ventilator 80.00 10/11/20 15:00 38.0 61 22 105/71 (82) 96 Mechanical Ventilator 100.00 10/11/20 14:36 64 22 98 80 10/11/20 14:00 38.0 63 24 105/72 (83) 98 Mechanical Ventilator 100.00 10/11/20 12:46 63 10/11/20 12:45 62 23 115/81 10/11/20 12:07 96 Mechanical Ventilator 100 10/11/20 12:00 38.1 62 23 115/81 (92) 97 Mechanical Ventilator 100.00 10/11/20 11:20 Mechanical Ventilator 100.00 10/11/20 11:13 67 82/65 10/11/20 11:07 67 23 91 100 10/11/20 11:00 38.4 67 22 103/70 (81) 95 Mechanical Ventilator 90.00 10/11/20 10:20 38.5 10/11/20 10:00 38.5 72 21 98/69 (79) 95 Mechanical Ventilator 90.00 I & O 10/12/20 07:00 Intake Total 1904 ml Output Total 2245 ml Balance -341 ml Height & Weight Height: 5'7.00" Weight: 250lbs. 0oz. 113.527639td; 40.69 BMI Method:Stated General Appearance: Chronically ill, Obese, Other (Intubated and sedated) HEENT: Other (Sedated and endotracheal tube in place) Neck: Full Range of Motion, Normal Inspection, Non Tender, Supple, Carotid Bruit Respiratory: No Accessory Muscle Use, No Respiratory Distress, Decreased Breath Sounds, Rhonci Cardiovascular: Regular Rate, Rhythm, Bradycardia Capillary Refill: Less Than 3 Seconds Gastrointestinal: normal bowel sounds, non tender Extremity: Normal Capillary Refill, Normal Inspection, No Pedal Edema, Other (right arm PICC, site look ok) Skin: Normal Color, Warm/Dry Lymphatic: No Adenopathy Results Lab Laboratory Tests 10/11/20 02:25 10/12/20 02:10 Assessment/Plan Assessment/Plan Needs full vent support only on 10 IV propofol, have to repeat due to due to high TG's sedation needs going down continue Detemir, glucose has been near 150 Need for anti fungal Rx is ?. I would stop continue Decadron I suspect he will need trach Critical Care: Ventilator Management Time spent with patient (mins): 30 MARY ANN DORSEY MD Oct 12, 2020 09:09
[2020-10-12] MEDS: PROPOFOL DRIP (ICU) 100 ML IV SCH ×2 (09:36→23:05)
--- NOTE | 2020-10-12 11:23 | Progress Note - Hospitalist ---
Subjective HPI/CC On Admission Date Seen by Provider: Oct 12, 2020 Time Seen by Provider: 11:15 CC: Covid-19 pneumonia with respiratory failure requiring intubation at [facility] [place] HPI: This is a 45yoWM who had no past medical history until he was admitted to the ER noted to have new onset DM, HgbA1C of 9, with presumed EMANUEL, who was swabbed, positive for Covid, but had a major decline in status within the night with severe respiratory fatigue requiring intubation. Currently, he is now on PEEP of 12, FIO2 of 100% and will review ABG and I appreciate pulmonology consultation. I updated the in detail before transferring to [facility]. Subjective/Events-last exam No significant change Still fever Ice packs and cool washcloths Very grave prognosis wants to talk about DO NOT RESUSCITATE and terminal extubation tomorrow Objective Exam Vital Signs Vital Signs Date Time Temp Pulse Resp B/P (MAP) Pulse Ox O2 Delivery O2 Flow Rate FiO2 10/12/20 15:47 Mechanical Ventilator 90.00 10/12/20 15:30 96 100 10/12/20 15:10 69 26 10/12/20 15:00 38.2 107/72 (84) Capillary Refill : Less Than 3 Seconds General Appearance: No Apparent Distress, WD/WN, Chronically ill, Obese, Other (Sedated and intubated) Respiratory: Crackles, Decreased Breath Sounds Results/Procedures Lab Laboratory Tests 10/12/20 02:10 Patient resulted labs reviewed. Assessment/Plan Assessment and Plan Assess & Plan/Chief Complaint Assessment: Acute hypoxic respiratory failure due to COVID-19 pneumonia requiring intubation after failing BiPAP and Vapotherm at [facility] Obesity BMI 40 Chewing tobacco user New onset diabetes this admit hemoglobin A1c 9.0 Gout Presumed obstructive sleep apnea Plan: Intubation Sedation eICU appreciated Prognosis guarded 10/10/2020: Supportive care Intubation to be maintained Appreciate eICU Prognosis guarded 10/11/2020: Maintain intubation Poor prognosis Add Eraxis 10/12/2020: eICU wants to DC Eraxis Poor prognosis We will speak to tomorrow likely terminal extubation soon Critical Care Ventilator Management Diagnosis/Problems Diagnosis/Problems (1) COVID-19 Status: Acute MIKAELA LAYNE DO Oct 12, 2020 11:23
[2020-10-12 11:26] VITALS: BP 101/67
[2020-10-12] MEDS: MIDAZOLAM DRIP PRE-MIX 100 ML IV SCH ×2 (11:34→23:04)
[2020-10-12] MEDS: ENOXAPARIN 40 MG/0.4 ML (LOVENOX) SYR SC SCH ×2 (11:39→22:55)
[2020-10-12] MEDS: DexMEDEtomidine 250 ML DRIP 250 ML IV SCH (14:21)
[2020-10-12 15:10] VITALS: BP 107/72
[2020-10-12 18:19] VITALS: BP 105/74
[2020-10-12] MEDS ORDERED: D5W 100 ML IVPB 100 ML IV ONE (21:04)
[2020-10-12] MEDS ORDERED: LORazepam INJ 2 MG/ML (ATIVAN) VIAL ONE (21:05)
[2020-10-12 22:37] VITALS: BP 107/76
[2020-10-13 01:40] VITALS: BP 110/76
[2020-10-13] MEDS: RT-ALBUTEROL HFA 8.5 GM INHALER IH SCH ×6 (01:40→22:52)
[2020-10-13 03:38] LABS: ABG BASE EXCESS 4.7 MMOL/L (-2.5-2.5); ABG OXYGEN SATURATION 97 % (94-100); ABG PCO2 50 MMHG (35-45); ABG PH 7.39 (7.37-7.43); ABG PO2 94 MMHG (79-93); ABG TCO2 30.6 MMOL/L (21.0-31.0)
[2020-10-13 03:39] LABS: ALLENS TEST YES-POS; BASOPHILS % (AUTO) 0 % (0-10); EOSINOPHILS # (AUTO) 0.1 10^3/uL (0.0-0.3); EOSINOPHILS % (AUTO) 1 % (0-10); HEMATOCRIT 41 % (40-54); HEMOGLOBIN 12.6 g/dL (13.3-17.7); LYMPHOCYTES # (AUTO) 1.8 10^3/uL (1.0-4.0); LYMPHOCYTES % (AUTO) 17 % (12-44); MEAN CORPUSCULAR HEMOGLOBIN 27 pg (25-34); MEAN CORPUSCULAR HGB CONC 31 g/dL (32-36); MEAN CORPUSCULAR VOLUME 89 fL (80-99); MEAN PLATELET VOLUME 11.1 fL (9.0-12.2); MONOCYTES # (AUTO) 0.3 10^3/uL (0.0-1.0); MONOCYTES % (AUTO) 2 % (0-12); NEUTROPHILS # (AUTO) 7.9 10^3/uL (1.8-7.8); NEUTROPHILS % (AUTO) 75 % (42-75); PLATELET COUNT 272 10^3/uL (130-400); WHITE BLOOD COUNT 10.5 10^3/uL (4.3-11.0)
[2020-10-13 03:40] LABS: INSPIRED O2 95%; PATIENT TEMP 38.1; VENTILATOR YES
[2020-10-13 03:57] LABS: POTASSIUM 4.3 MMOL/L (3.6-5.0)
[2020-10-13 03:58] LABS: CALCIUM 9.1 MG/DL (8.5-10.1)
[2020-10-13 04:03] LABS: CREATININE SERUM 0.74 MG/DL (0.60-1.30)
[2020-10-13 04:05] LABS: MAGNESIUM 2.2 MG/DL (1.6-2.4)
[2020-10-13] MEDS: MAGNESIUM 1 GM/100 ML IVPB 100 ML IV SCH (05:01)
[2020-10-13] MEDS: CEFEPIME INJECTION 1,000 MG in WATER (STERILE) FOR INJECTION 10 ML IV SCH (05:01)
[2020-10-13] MEDS: inSUlin ASPART (NovoLOG) 1 UNIT/0.01 ML (CHARGE PER UNIT) SC SCH ×4 (05:01→23:19)
[2020-10-13] MEDS: KCL 20 MEQ TAB (K-DUR) PO SCH (05:01)
[2020-10-13] MEDS: POTASSIUM CL 10MEQ/50ML IVPB 50 ML IV SCH (05:02)
[2020-10-13] MEDS: ACETAMINOPHEN 325 MG TABLET PO PRN (05:11)
[2020-10-13 06:46] LABS: ALBUMIN 3.1 GM/DL (3.2-4.5)
[2020-10-13 06:49] LABS: TOTAL PROTEIN 7.5 GM/DL (6.4-8.2)
--- NOTE | 2020-10-13 06:50 | Occ Therapy Progress Note ---
Therapy Progress Note Pt is currently intubated. OT will continue to monitor pt status and initiate treatment when pt is medically stable and able to actively participate in skilled therapy. LAURA JACKSON Oct 13, 2020 06:50
[2020-10-13 06:51] LABS: BILIRUBIN,TOTAL 0.5 MG/DL (0.1-1.0)
[2020-10-13 06:55] LABS: BILIRUBIN,DIRECT 0.2 MG/DL (0.0-0.3); BILIRUBIN,INDIRECT 0.3 MG/DL
--- NOTE | 2020-10-13 07:24 | Diagnostic Imaging Report ---
INDICATION: Respiratory failure Portable AP view of chest is obtained with comparison made to study of one day earlier. Extensive bilateral airspace disease has shown no definite change. Endotracheal tube is in place with tip at the level of the thoracic inlet. Nasogastric tube and right upper extremity PICC are in stable position. No pneumothorax is identified. IMPRESSION: Extensive airspace disease has not changed when compared to previous study. Dictated by: Dictated on workstation # [id number]
[2020-10-13 07:31] VITALS: BP 100/63
--- NOTE | 2020-10-13 07:49 | Physical Therapy Progress Note ---
Therapy Progress Note Patient currently sedated and intubated. PT will continue to follow patient status and initiate treatment when patient is medically stable and able to actively participate with skilled therapy. SHEREEN TREJO PT Oct 13, 2020 07:49
[2020-10-13] MEDS: PANTOPRAZOLE 40 MG (PROTONIX) VIAL IV SCH (08:08)
[2020-10-13] MEDS: DexMEDEtomidine 250 ML DRIP 250 ML IV SCH ×2 (08:08→23:05)
[2020-10-13] MEDS: LORazepam INJECTION FOR DRIP 20 MG in D5W 100 ML IVPB 90 ML IV SCH ×2 (08:09→16:25)
[2020-10-13] MEDS: NS IV 1000 ML 1,000 ML IV SCH (08:15)
[2020-10-13] MEDS: LACRI-LUBE OPTHALMIC OINT 3.5 GM TUBE OU SCH ×2 (09:28→20:45)
--- NOTE | 2020-10-13 09:53 | Tele-ICU Progress Note ---
Subjective Date Seen by a Provider: Oct 13, 2020 Time Seen by a Provider: 09:53 Sepsis Event Evaluation Height, Weight, BMI Height: 5'7.00" Weight: 250lbs. 0oz. [id number]; 40.69 BMI Method:Stated Exam Exam Patient acknowledged, consented, and participated in this virtual visit which was conducted using real time audio/video Vital Signs Date Time Temp Pulse Resp B/P (MAP) Pulse Ox O2 Delivery O2 Flow Rate FiO2 10/13/20 08:20 92 Mechanical Ventilator 85 10/13/20 08:09 72 26 101/66 10/13/20 08:08 70 101/66 10/13/20 07:31 73 25 92 85 10/13/20 06:36 Mechanical Ventilator 85.00 10/13/20 06:32 Mechanical Ventilator 80.00 10/13/20 06:32 72 10/13/20 06:00 38.3 66 23 101/68 (79) 92 Mechanical Ventilator 75.00 10/13/20 05:11 38.3 10/13/20 05:00 Mechanical Ventilator 75.00 10/13/20 05:00 38.2 71 23 101/67 (78) 95 Mechanical Ventilator 75.00 10/13/20 04:00 38.1 67 24 102/74 (83) 95 Mechanical Ventilator 85.00 10/13/20 03:30 93 Mechanical Ventilator 85 10/13/20 03:30 Mechanical Ventilator 85.00 10/13/20 03:15 Mechanical Ventilator 95.00 10/13/20 03:00 Mechanical Ventilator 100.00 10/13/20 03:00 38.2 61 23 107/74 (85) 92 Mechanical Ventilator 100.00 10/13/20 02:20 Mechanical Ventilator 90.00 10/13/20 02:00 38.1 63 25 108/74 (85) 90 Mechanical Ventilator 80.00 10/13/20 01:40 62 23 91 80 10/13/20 01:00 38.0 60 24 107/75 (86) 92 Mechanical Ventilator 80.00 10/13/20 01:00 60 10/13/20 00:00 38.0 60 22 109/73 (85) 91 Mechanical Ventilator 80.00 10/12/20 23:05 59 108/75 10/12/20 23:04 59 20 108/75 10/12/20 23:00 38.0 63 23 108/75 (86) 91 Mechanical Ventilator 80.00 10/12/20 23:00 91 Mechanical Ventilator 80 10/12/20 22:37 56 22 94 80 10/12/20 22:00 37.9 58 23 111/78 (89) 94 Mechanical Ventilator 80.00 10/12/20 21:15 58 20 111/77 10/12/20 21:00 37.9 57 22 111/77 (88) 93 Mechanical Ventilator 80.00 10/12/20 20:05 Mechanical Ventilator 80.00 10/12/20 20:00 92 Mechanical Ventilator 80 10/12/20 20:00 37.9 57 21 106/77 (87) 95 Mechanical Ventilator 90.00 10/12/20 19:00 60 10/12/20 19:00 37.9 59 20 110/75 (87) 95 Mechanical Ventilator 90.00 10/12/20 18:19 56 22 96 90 10/12/20 18:00 37.8 57 23 107/74 (85) 96 Mechanical Ventilator 90.00 10/12/20 17:00 37.9 59 20 107/72 (84) 96 Mechanical Ventilator 90.00 10/12/20 16:00 37.9 60 20 108/72 (84) 95 Mechanical Ventilator 90.00 10/12/20 15:47 Mechanical Ventilator 90.00 10/12/20 15:30 96 Mechanical Ventilator 100 10/12/20 15:10 69 26 94 90 10/12/20 15:00 38.2 64 21 107/72 (84) 97 Mechanical Ventilator 100.00 10/12/20 14:21 74 28 108/75 10/12/20 14:21 74 108/75 10/12/20 14:00 38.2 72 26 108/72 (84) 96 Mechanical Ventilator 100.00 10/12/20 13:00 38.3 74 28 108/75 (86) 96 Mechanical Ventilator 100.00 10/12/20 12:56 72 10/12/20 12:00 96 Mechanical Ventilator 100 10/12/20 12:00 38.3 73 28 110/77 (88) 95 Mechanical Ventilator 100.00 10/12/20 11:34 Mechanical Ventilator 100.00 10/12/20 11:34 75 30 101/67 10/12/20 11:26 75 30 92 100 10/12/20 11:00 38.5 80 26 107/68 (81) 93 Mechanical Ventilator 80.00 10/12/20 10:00 38.6 83 28 102/64 (77) 93 Mechanical Ventilator 80.00 I & O 10/13/20 07:00 Intake Total 1900 ml Output Total 2310 ml Balance -410 ml Height & Weight Height: 5'7.00" Weight: 250lbs. 0oz. [id number]; 40.69 BMI Method:Stated General Appearance: No Apparent Distress, WD/WN, Chronically ill, Obese, Other (Sedated and intubated) HEENT: Other (Sedated and endotracheal tube in place) Neck: Full Range of Motion, Normal Inspection, Non Tender, Supple, Carotid B ruit Respiratory: Crackles, Decreased Breath Sounds Cardiovascular: Regular Rate, Rhythm, Bradycardia Capillary Refill: Less Than 3 Seconds Gastrointestinal: normal bowel sounds, non tender Extremity: Normal Capillary Refill, Normal Inspection, No Pedal Edema, Other (right arm PICC, site look ok) Skin: Normal Color, Warm/Dry Lymphatic: No Adenopathy Results Lab Laboratory Tests 10/12/20 02:10 10/13/20 03:25 Assessment/Plan Assessment/Plan (Tele-ICU Physician , Progress Note ) Available chart/ vitals / labs / Images reviewed Video assessment done using teleICU camera, rest of exam as per RN Discussed with RN , EXAM PER RN Events overnight : Afebrile I/O = kimberly 1700 Drips: ns 70 Pressors: , hemodynamically stable Sedation gtt: ( RASS -3) versed 10 , presedex 0.03 VENT SETTINGS. AC 20 450 +12 90% PAP 30 , plateau 17 ABG reviewed Consultants: Hospital course: 10/06 - ARF /intubated in other facility COVID , , Pfizer x1 09/23 , symptoms 09/28 , Dx 09/28 10/08 - transferred , AC 20 450 +12 100% PAP 30 , plateau 17 10/09 - AC 20 450 +12 90% PAP 28 , plateau 17 10/10-AC 20 450 +12 100 % PAP 32 10/13 -AC 20 450 +12 85 % PAP 32 Now in ICU, hemodynamically stable Video assessment done using teleICU camera, rest of exam as per RN Discussed with RN. Consultants: Sedation gtt: ( RASS - 2) sedtion vacation 10/13 - withdraw for pain only propofol 10 , ativan, precedex fentanyl VENT SETTINGS. AC 20 450 +12 100 % PAP 32 ABG reviewed A/P AHRF / ARDS due to severe COVID19 - intubated 10/06, now AC 20 450 +12 85 % PAP 32 -prone position daily 16 h - needs more seation with proning - conservative fluid strategy (aim for even or negative fluid balance [id number]-Odxyhstppsv-6/COVID-19 PNA (Pfizer x1 09/23 , symptoms 09/28 , Dx 09/28 ) -Steroids IV - started 10/08 -Hypercoagulable state , DDIMER 0.6 on 10/08 -> lovenox ppx dose , Suspected superimposed bact PNA -empiric abx started on 10/08, cefepime / doxy - FINISHED course - still febrile -RECULTURE TODAY Cx sputum 10/08 AND BLOOD CX Hyperglycemia / newly Dx DM - ISS , close f/up on steroids Hyper TGL emia -TGL 280 on admission to this facility ) - propofol resumed at night for increaded agitation - ativan , versed Lines : RIGHT PICC 10/08 , (Central Line Necessity Reviewed) Chapman: 10/06 OG: + Nutrition: start 10/09 - REGLAN to try 10/13 Analgesia: Anxiety/ delirium VTE Prophylaxis: nancy 40 q 12 Stress Ulcer Prophylaxis: PPI Glycemic Control: + Plans in collaboration with bedside consultants and IM MDs. Discussed with RN to reach out if any questions or concerns A total of 40 minutes of critical care time was devoted to this patient today, required to treat and/or prevent further deterioration of critical care condition ( as above ) . WENDIE THOMASON MD Oct 13, 2020 09:53
[2020-10-13 10:54] VITALS: BP 109/68
[2020-10-13] MEDS: ENOXAPARIN 40 MG/0.4 ML (LOVENOX) SYR SC SCH ×2 (11:14→23:06)
--- NOTE | 2020-10-13 11:16 | Progress Note ---
NOEMÍ PASTOR MED STUDENT 10/13/20 1116: Subjective Date Seen by a Provider: Oct 13, 2020 Time Seen by a Provider: 08:15 Subjective/Events-last exam Patient remains intubated and sedated. He is currently getting ativan, versed, propofol, and precedex for sedation. No pressors or paralytics. Stable per PBX OPERATOR. Plan is to possibly terminally extubate patient today or in coming days. Review of Systems General: Other (unable to obtain due to condition) HEENT: Other (unable to obtain due to condition) Pulmonary: Other (unable to obtain due to condition) Cardiovascular: Other (unable to obtain due to condition) Gastrointestinal: Other (unable to obtain due to condition) Genitourinary: Other (unable to obtain due to condition) Musculoskeletal: other (unable to obtain due to condition) Neurological: Other (unable to obtain due to condition) Objective Exam Last Set of Vital Signs Vital Signs Date Time Temp Pulse Resp B/P (MAP) Pulse Ox O2 Delivery O2 Flow Rate FiO2 10/13/20 10:54 63 23 94 85 10/13/20 08:20 Mechanical Ventilator 10/13/20 08:09 101/66 10/13/20 06:36 85.00 10/13/20 06:00 38.3 Capillary Refill : Less Than 3 Seconds I&O Intake and Output 10/13/20 00:00 Intake Total 1980 ml Output Total 2445 ml Balance -465 ml Intake Oral 0 ml IV Total 1190 ml Tube Feeding 490 ml Other 300 ml Output Urine Total 2445 ml General: Severe Distress, Other (Remains intubated/sedated. Criticall ill appearing. ) HEENT: Other (Endotracheally intubated/NG feeding tube in place. Mild eyelid edema bilaterally present. ) Neck: Supple, No LAD Lungs: Other (Coarse breath sounds bilateally throughout. Diminished. Synchronous with vent at present time's assessment. ) Heart: Regular Rate, No Murmurs Abdomen: Normal Bowel Sounds, Other (Mildly distended. ) Extremities: No Clubbing, No Cyanosis, Normal Pulses, Other (Nonpitting edema bilateral hands and bilateral lower extremities. ) Skin: No Rashes, No Breakdown, Other (Bilateral dressings covering bony prominences for proning intact. No breakdown per PBX OPERATOR) Neuro: Other (Sedated. ) Psych/Mental Status: Other (See Neuro comment) Results Lab Laboratory Tests 10/12/20 11:46: Glucometer 245H 10/12/20 17:19: Glucometer 237H 10/12/20 22:54: Glucometer 175H 10/13/20 03:25: White Blood Count 10.5, Red Blood Count 4.62, Hemoglobin 12.6L, Hematocrit 41, Mean Corpuscular Volume 89, Mean Corpuscular Hemoglobin 27, Mean Corpuscular Hemoglobin Concent 31L, Red Cell Distribution Width 14.0, Platelet Count 272, Mean Platelet Volume 11.1, Immature Granulocyte % (Auto) 5, Neutrophils (%) (Auto) 75, Lymphocytes (%) (Auto) 17, Monocytes (%) (Auto) 2, Eosinophils (%) (Auto) 1, Basophils (%) (Auto) 0, Neutrophils # (Auto) 7.9H, Lymphocytes # (Auto) 1.8, Monocytes # (Auto) 0.3, Eosinophils # (Auto) 0.1, Basophils # (Auto) 0.0, Immature Granulocyte # (Auto) 0.5H, Blood Gas Puncture Site LEFT RAD, Blood Gas Patient Temperature 38.1, Arterial Blood pH 7.39, Arterial Blood Partial Pressure CO2 50H, Arterial Blood Partial Pressure O2 94H, Arterial Blood HCO3 29H, Arterial Blood Total CO2 30.6, Arterial Blood Oxygen Saturation 97, Arterial Blood Base Excess 4.7H, Casper Test YES-POS, Blood Gas Ventilator Setting YES, Blood Gas Inspired Oxygen 95%, Sodium Level 138, Potassium Level 4.3, Chloride Level 102, Carbon Dioxide Level 26, Anion Gap 10, Blood Urea Nitrogen 18, Creatinine 0.74, Estimat Glomerular Filtration Rate 115, BUN/Creatinine Ratio 24, Glucose Level 165H, Calcium Level 9.1, Magnesium Level 2.2, Total Bilirubin 0.5, Direct Bilirubin 0.2, Indirect Bilirubin 0.3, Aspartate Amino Transf (AST/SGOT) 43H, Alanine Aminotransferase (ALT/SGPT) 52, Alkaline Phosphatase 67, Total Protein 7.5, Albumin 3.1L, Procalcitonin 0.10H Microbiology 10/11/20 Blood Culture - Preliminary, Resulted Staph, 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) 10/09/20 Gram Stain - Final, Complete 10/09/20 Sputum Culture - Final, Complete Usual upper respiratory jamaal YEAST Assessment/Plan Assessment/Plan Assess & Plan/Chief Complaint Acute Hypoxic Respiratory Failure -FIO2 85%, PEEP 12, TV 450, RR 20 -wean vent settings as tolerated -prone per protocol -versed, propofol, ativan, precedex COVID-19 PNA -decadron Secondary Bacterial PNA -s/p cefepime and doxycycline Hypercoagulability secondary to COVID-19 -D dimer elevated at 0.60 on 8-25 -lovenox 40mg q12hr New onset Diabetes Mellitus -Hgb A1C of 9 -accuchecks QID, SSI GI PPX -protonix Obesity Hypertriglyceridemia -continue to monitor -avoid propofol unless necessary Gout -monitor Tobacco use Plan to discuss with as she is considering terminally extubating patient. CYNTHIA LAYNE DO 10/14/20 0525: Subjective Subjective/Events-last exam Pt about the same Cefepime and Doxycline discontinued since it was completed ABG shows 7. I had a fifteen minute conversation with his Angie who I talked to earlier and told her that he would remain ventilated with a trach and peg tube or terminal extubation comfort care could be done so she will talk to the rest of the family and I will call her tomorrow Objective Exam General: Other (Remains intubated/sedated. Criticall ill appearing. ) Assessment/Plan Assessment/Plan Assess & Plan/Chief Complaint Comfort care discussed with We will call tomorrow to obtain update on her decision Supervisory-Addendum Brief Verification & Attestation Participated in pt care: history, MDM, physical Personally performed: exam, history, MDM, supervision of care Care discussed with: Medical Student Procedures: n/a Results interpretation: Verified all documentation Verification and Attestation of Medical Student E/M Service A medical student performed and documented this service in my presence. I reviewed and verified all information documented by the medical student and made modifications to such information, when appropriate. I personally performed the physical exam and medical decision making. Cynthia Layne, Oct 14, 2020,05:24 NOEMÍ PASTOR MED STUDENT Oct 13, 2020 11:16 CYNTHIA LAYNE DO Oct 14, 2020 05:25
[2020-10-13] MEDS: METOCLOPRAMIDE INJ 10 MG/2 ML (REGLAN) IVP SCH ×3 (11:32→23:05)
[2020-10-13] MEDS: ACETAMINOPHEN 650 MG SUPP (TYLENOL) PR PRN (11:32)
[2020-10-13] MEDS: PROPOFOL DRIP (ICU) 100 ML IV SCH (13:27)
[2020-10-13 14:39] VITALS: BP 109/78
[2020-10-13] MEDS: MIDAZOLAM DRIP PRE-MIX 100 ML IV SCH (15:21)
[2020-10-13 18:39] VITALS: BP 112/78
[2020-10-13] MEDS ORDERED: fentaNYL INJ 100 MCG/2 ML AMP IVP PRN ×2 (21:15)
[2020-10-13] MEDS ORDERED: fentaNYL DRIP PRE-MIX 250 ML IV ONE (21:17)
[2020-10-13] MEDS: fentaNYL DRIP PRE-MIX 250 ML IV SCH (21:27)
[2020-10-13 22:53] VITALS: BP 110/75
[2020-10-14] MEDS: LORazepam INJECTION FOR DRIP 20 MG in D5W 100 ML IVPB 90 ML IV SCH ×3 (01:47→21:50)
[2020-10-14] MEDS: ACETAMINOPHEN 325 MG TABLET PO PRN ×2 (02:51→23:30)
[2020-10-14 03:01] LABS: ABG OXYGEN SATURATION 94 % (94-100); ABG PCO2 50 MMHG (35-45); ABG PH 7.41 (7.37-7.43); ABG PO2 76 MMHG (79-93); ABG TCO2 31.9 MMOL/L (21.0-31.0)
[2020-10-14 03:08] VITALS: BP 110/70
[2020-10-14] MEDS: RT-ALBUTEROL HFA 8.5 GM INHALER IH SCH ×6 (03:08→21:38)
[2020-10-14 03:18] LABS: ALLENS TEST YES-POS; INSPIRED O2 85%; PATIENT TEMP 38; VENTILATOR YES
[2020-10-14] MEDS: MIDAZOLAM DRIP PRE-MIX 100 ML IV SCH ×2 (03:58→13:23)
[2020-10-14] MEDS: METOCLOPRAMIDE INJ 10 MG/2 ML (REGLAN) IVP SCH ×4 (03:58→23:30)
[2020-10-14 04:23] LABS: BASOPHILS % (AUTO) 0 % (0-10); EOSINOPHILS # (AUTO) 0.1 10^3/uL (0.0-0.3); EOSINOPHILS % (AUTO) 1 % (0-10); HEMATOCRIT 42 % (40-54); HEMOGLOBIN 12.6 g/dL (13.3-17.7); LYMPHOCYTES # (AUTO) 1.4 10^3/uL (1.0-4.0); LYMPHOCYTES % (AUTO) 14 % (12-44); MEAN CORPUSCULAR HEMOGLOBIN 27 pg (25-34); MEAN CORPUSCULAR HGB CONC 30 g/dL (32-36); MEAN CORPUSCULAR VOLUME 92 fL (80-99); MEAN PLATELET VOLUME 11.3 fL (9.0-12.2); MONOCYTES # (AUTO) 0.3 10^3/uL (0.0-1.0); MONOCYTES % (AUTO) 4 % (0-12); NEUTROPHILS # (AUTO) 7.4 10^3/uL (1.8-7.8); NEUTROPHILS % (AUTO) 77 % (42-75); PLATELET COUNT 261 10^3/uL (130-400); WHITE BLOOD COUNT 9.6 10^3/uL (4.3-11.0)
[2020-10-14 06:50] LABS: POTASSIUM 4.2 MMOL/L (3.6-5.0)
[2020-10-14 06:52] LABS: CALCIUM 9.3 MG/DL (8.5-10.1)
[2020-10-14] MEDS: KCL 20 MEQ TAB (K-DUR) PO SCH (06:55)
[2020-10-14] MEDS: POTASSIUM CL 10MEQ/50ML IVPB 50 ML IV SCH (06:55)
[2020-10-14 06:56] LABS: CREATININE SERUM 0.76 MG/DL (0.60-1.30)
[2020-10-14] MEDS: inSUlin ASPART (NovoLOG) 1 UNIT/0.01 ML (CHARGE PER UNIT) SC SCH ×4 (06:56→23:30)
[2020-10-14 06:58] LABS: MAGNESIUM 2.2 MG/DL (1.6-2.4)
--- NOTE | 2020-10-14 07:00 | Occ Therapy Progress Note ---
Therapy Progress Note Pt is currently intubated. OT will continue to monitor pt status and initiate treatment when pt is medically stable and able to actively participate in skilled therapy. LAURA JACKSON Oct 14, 2020 07:00
--- NOTE | 2020-10-14 07:26 | Physical Therapy Progress Note ---
Therapy Progress Note Patient currently sedated and intubated. PT will continue to follow patient status and initiate treatment when patient is medically stable and able to actively participate with skilled therapy. SHEREEN TREJO PT Oct 14, 2020 07:26
[2020-10-14 07:40] VITALS: BP 98/72
--- NOTE | 2020-10-14 07:44 | Diagnostic Imaging Report ---
INDICATION: COVID pneumonia, follow-up. TECHNIQUE: Single view chest 3:34 AM. CORRELATION STUDY: 10/13/2020 FINDINGS: Endotracheal tube projects over the lower trachea, approximately 3 to 4 cm proximal to the marizol. Heart size appears enlarged. Mediastinum is prominent appearing slightly more from prior. Extensive consolidation throughout both lung patricia overall appears increased and more consolidated. Most pronounced left mid lung. IMPRESSION: 1. Extensive dense consolidation throughout both lung patricia overall appears increased in severity from previous study. Favors worsening consolidating pneumonia. Report was faxed to [facility] by harish at 7:47AM. Dictated by: Dictated on workstation # [id number]
[2020-10-14] MEDS: MAGNESIUM 1 GM/100 ML IVPB 100 ML IV SCH (07:58)
[2020-10-14] MEDS: LACRI-LUBE OPTHALMIC OINT 3.5 GM TUBE OU SCH ×2 (07:58→20:53)
[2020-10-14] MEDS: PANTOPRAZOLE 40 MG (PROTONIX) VIAL IV SCH (07:59)
--- NOTE | 2020-10-14 11:02 | Tele-ICU Progress Note ---
Subjective Time Seen by a Provider: 08:45 Sepsis Event Evaluation Height, Weight, BMI Height: 5'7.00" Weight: 250lbs. 0oz. [id number]; 40.69 BMI Method:Stated Exam Exam Patient acknowledged, consented, and participated in this virtual visit which was conducted using real time audio/video Vital Signs Date Time Temp Pulse Resp B/P (MAP) Pulse Ox O2 Delivery O2 Flow Rate FiO2 10/14/20 08:11 Mechanical Ventilator 85.00 10/14/20 08:09 89 Mechanical Ventilator 80 10/14/20 07:40 66 25 94 80 10/14/20 06:16 73 10/14/20 06:00 37.9 70 12 93 Mechanical Ventilator 80.00 10/14/20 05:00 37.8 68 15 93/69 (77) 94 Mechanical Ventilator 80.00 10/14/20 05:00 74 28 88 10/14/20 04:00 37.9 67 19 96/68 (77) 92 Mechanical Ventilator 80.00 10/14/20 04:00 96 Mechanical Ventilator 80 10/14/20 03:58 70 10/14/20 03:21 37.9 10/14/20 03:08 57 20 93 85 10/14/20 03:00 38.0 58 20 110/78 (89) 93 Mechanical Ventilator 80.00 10/14/20 02:51 38.0 10/14/20 02:00 37.9 57 20 112/76 (88) 91 Mechanical Ventilator 80.00 10/14/20 01:47 72 10/14/20 01:00 70 10/14/20 01:00 37.8 70 22 113/82 (92) 93 Mechanical Ventilator 80.00 10/14/20 00:00 37.7 70 20 114/79 (91) 91 Mechanical Ventilator 80.00 10/13/20 23:59 94 Mechanical Ventilator 85 10/13/20 23:05 119/86 10/13/20 23:00 37.8 75 23 119/86 (97) 92 Mechanical Ventilator 80.00 10/13/20 22:53 63 22 92 85 10/13/20 22:00 37.6 64 23 110/78 (90) 93 Mechanical Ventilator 80.00 10/13/20 21:00 37.8 65 22 113/81 (92) 93 Mechanical Ventilator 80.00 10/13/20 20:00 37.8 68 21 113/80 (92) 92 Mechanical Ventilator 80.00 10/13/20 20:00 92 Mechanical Ventilator 85 10/13/20 19:00 70 10/13/20 19:00 37.7 70 24 108/75 (86) 90 Mechanical Ventilator 80.00 10/13/20 18:39 69 22 92 80 10/13/20 18:00 37.6 63 22 107/74 (85) 92 Mechanical Ventilator 80.00 10/13/20 17:00 37.6 60 22 133/90 (104) 94 Mechanical Ventilator 80.00 10/13/20 16:25 67 23 114/81 10/13/20 16:00 37.6 67 22 111/83 (92) 95 Mechanical Ventilator 80.00 10/13/20 15:28 Mechanical Ventilator 80.00 10/13/20 15:26 92 Mechanical Ventilator 80 10/13/20 15:21 68 23 118/83 10/13/20 15:00 37.6 63 24 110/78 (89) 91 Mechanical Ventilator 75.00 10/13/20 14:39 70 26 95 75 10/13/20 14:00 37.7 56 20 108/72 (84) 95 Mechanical Ventilator 75.00 10/13/20 13:40 Mechanical Ventilator 75.00 10/13/20 13:27 64 109/77 10/13/20 13:00 38.0 68 23 110/76 (87) 95 Mechanical Ventilator 85.00 10/13/20 12:56 68 10/13/20 12:02 38.0 10/13/20 12:00 38.0 70 24 109/73 (85) 94 Mechanical Ventilator 85.00 10/13/20 11:42 94 Mechanical Ventilator 85 10/13/20 11:32 38.2 I & O 10/14/20 07:00 Intake Total 2690 ml Output Total 2535 ml Balance 155 ml Height & Weight Height: 5'7.00" Weight: 250lbs. 0oz. 113.666491zv; 40.69 BMI Method:Stated General Appearance: No Apparent Distress, WD/WN, Chronically ill, Obese, Other (Sedated and intubated) HEENT: Other (Sedated and endotracheal tube in place) Neck: Full Range of Motion, Normal Inspection, Non Tender, Supple, Carotid Bruit Respiratory: Crackles, Decreased Breath Sounds Cardiovascular: Regular Rate, Rhythm, Bradycardia Capillary Refill: Less Than 3 Seconds Gastrointestinal: normal bowel sounds, non tender Extremity: Normal Capillary Refill, Normal Inspection, No Pedal Edema, Other (right arm PICC, site look ok) Skin: Normal Color, Warm/Dry Lymphatic: No Adenopathy Results Lab Laboratory Tests 10/13/20 03:25 10/14/20 03:45 10/14/20 06:10 Assessment/Plan Assessment/Plan (Tele-ICU Physician , Progress Note ) Available chart/ vitals / labs / Images reviewed Video assessment done using teleICU camera, rest of exam as per RN Discussed with RN , EXAM PER RN Events overnight : Afebrile I/O = pos 400 Drips: ns 20 Pressors: , hemodynamically stable Sedation gtt: ( RASS -3) versed 2 , presedex 0.06, fentanyl 100 off sedation - follows on right side , moves both spontaneously VENT SETTINGS. AC 20 450 +12 90% PAP 30 , plateau 17 ABG reviewed Consultants: Hospital course: 10/06 - ARF /intubated in other facility COVID , , Pfizer x1 09/23 , symptoms 09/28 , Dx 09/28 10/08 - transferred , AC 20 450 +12 100% PAP 30 , plateau 17 10/09 - AC 20 450 +12 90% PAP 28 , plateau 17 10/10-AC 20 450 +12 100 % PAP 32 10/13 -AC 20 450 +12 85 % PAP 32 Now in ICU, hemodynamically stable Video assessment done using teleICU camera, rest of exam as per RN Discussed with RN. Consultants: VENT SETTINGS. AC 20 450 +12 80 % PAP 32 ABG reviewed A/P AHRF / ARDS due to severe COVID19 - intubated 10/06, now AC 20 450 +12 85 % PAP 32 -prone position daily 16 h - needs more seation with proning - conservative fluid strategy (aim for even or negative fluid balance [id number]-Fnaxxmminrd-8/COVID-19 PNA (Pfizer x1 09/23 , symptoms 09/28 , Dx 09/28 ) -Steroids IV - started 10/08 -Hypercoagulable state , DDIMER 0.6 on 10/08 -> lovenox ppx dose , FEVER - probably due to COVID Suspected superimposed bact PNA pct -empiric abx started on 10/08, cefepime / doxy - FINISHED course - ACEVEDO RECULTURED 10/13 Non-infection etiology? - will order lactate , TSH , lipase and LFT ( CRP will not be helpfull Hyperglycemia / newly Dx DM - ISS , close f/up on steroids Hyper TGL emia -TGL 280 on admission to this facility ) - propofol used prn increaded agitation - ativan , versed Lines : RIGHT PICC 10/08 , (Central Line Necessity Reviewed) Chapman: 10/06 OG: + Nutrition: start 10/09 - REGLAN to try 10/13 Analgesia: Anxiety/ delirium VTE Prophylaxis: nancy 40 q 12 Stress Ulcer Prophylaxis: PPI Glycemic Control: + Plans in collaboration with bedside consultants and IM MDs. Discussed with RN to reach out if any questions or concerns A total of 40 minutes of critical care time was devoted to this patient today, required to treat and/or prevent further deterioration of critical care condition ( as above ) . WENDIE THOMASON MD Oct 14, 2020 11:02
[2020-10-14 11:22] VITALS: BP 103/66
--- NOTE | 2020-10-14 11:28 | Progress Note ---
NOEMÍ PASTOR MED STUDENT 10/14/20 1128: Subjective Date Seen by a Provider: Oct 14, 2020 Time Seen by a Provider: 08:20 Subjective/Events-last exam Patient remains sedated and intubated. 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 Versed, precedex, and fentanyl for sedation currently. IVF's at tko. 450 TV, 85% FIO2, PEEP 12, RR 20. Vitals stable per bedside monitor. Pressures are soft but not requiring pressors. Review of Systems General: Other (unable to obtain) HEENT: Other (unable to obtain) Pulmonary: Other (unable to obtain) Cardiovascular: Other (unable to obtain) Gastrointestinal: Other (unable to obtain) Genitourinary: Other (unable to obtain) Musculoskeletal: other (unable to obtain) Neurological: Other (unable to obtain) Objective Exam Last Set of Vital Signs Vital Signs Date Time Temp Pulse Resp B/P (MAP) Pulse Ox O2 Delivery O2 Flow Rate FiO2 10/14/20 08:11 Mechanical Ventilator 85.00 10/14/20 08:09 89 80 10/14/20 07:40 66 25 10/14/20 06:00 37.9 Capillary Refill : Less Than 3 Seconds I&O Intake and Output 10/13/20 23:59 Intake Total 2700 ml Output Total 2235 ml Balance 465 ml Intake Oral 0 ml IV Total 2010 ml Tube Feeding 440 ml Other 250 ml Output Urine Total 2235 ml General: Other (Sedated/Intubated/Criticall ill) HEENT: Other (Endotracheally intubated/OG present/Pupils 2mm bilaterally and sluggish. Lid edema present bilaterally) Neck: Supple, No LAD Lungs: Other (Coarse bilaterally through all patricia. End expiratory wheezes heard right upper lobe) Heart: Regular Rate, Normal S1, Normal S2, No Murmurs Abdomen: Normal Bowel Sounds, Soft, No Tenderness Extremities: No Clubbing, No Cyanosis, Normal Pulses, Other (Nonpitting edema bilat hands and feet) Skin: Other (protective dressings overlying bony prominences to prevent breakdown during proning) Neuro: Other (chemically sedated) Psych/Mental Status: Other (sedated) Results Lab Laboratory Tests 10/13/20 16:34: Glucometer 293H 10/13/20 17:45: Glucometer 239H 10/13/20 23:19: Glucometer 185H 10/14/20 02:50: Blood Gas Puncture Site R RAD, Blood Gas Patient Temperature 38, Arterial Blood pH 7.41, Arterial Blood Partial Pressure CO2 50H, Arterial Blood Partial Pressure O2 76L, Arterial Blood HCO3 30H, Arterial Blood Total CO2 31.9H, Arterial Blood Oxygen Saturation 94, Arterial Blood Base Excess 6.0H, Casper Test YES-POS, Blood Gas Ventilator Setting YES, Blood Gas Inspired Oxygen 85% 10/14/20 03:45: White Blood Count 9.6, Red Blood Count 4.60, Hemoglobin 12.6L, Hematocrit 42, Mean Corpuscular Volume 92, Mean Corpuscular Hemoglobin 27, Mean Corpuscular Hemoglobin Concent 30L, Red Cell Distribution Width 13.5, Platelet Count 261, Mean Platelet Volume 11.3, Immature Granulocyte % (Auto) 4, Neutrophils (%) (Auto) 77H, Lymphocytes (%) (Auto) 14, Monocytes (%) (Auto) 4, Eosinophils (%) (Auto) 1, Basophils (%) (Auto) 0, Neutrophils # (Auto) 7.4, Lymphocytes # (Auto) 1.4, Monocytes # (Auto) 0.3, Eosinophils # (Auto) 0.1, Basophils # (Auto) 0.0, Immature Granulocyte # (Auto) 0.4H 10/14/20 06:10: Sodium Level 138, Potassium Level 4.2, Chloride Level 103, Carbon Dioxide Level 25, Anion Gap 10, Blood Urea Nitrogen 21H, Creatinine 0.76, Estimat Glomerular Filtration Rate 111, BUN/Creatinine Ratio 28, Glucose Level 169H, Calcium Level 9.3, Magnesium Level 2.2, Triglycerides Level 284H Microbiology 10/11/20 Blood Culture - Preliminary, Resulted No growth 10/09/20 Gram Stain - Final, Complete 10/09/20 Sputum Culture - Final, Complete Usual upper respiratory jamaal YEAST Assessment/Plan Assessment/Plan Assess & Plan/Chief Complaint Acute Hypoxic Respiratory Failure -FIO2 85%, PEEP 12, TV 450, RR 20 -wean vent settings as tolerated -prone per protocol -versed, precedex, fentanyl COVID-19 PNA -decadron Secondary Bacterial PNA -s/p cefepime and doxycycline -chest xray today shows worsening extensive dense consolidation throughout both lung patricia, favoring worsening consolidating PNA Hypercoagulability secondary to COVID-19 -D dimer elevated at 0.60 on 8-25 -lovenox 40mg q12hr New onset Diabetes Mellitus -Hgb A1C of 9 -accuchecks QID, SSI GI PPX -protonix Obesity Hypertriglyceridemia -continue to monitor -avoid propofol Gout -monitor Tobacco use Dr. Macias had extensive conversation with his today regarding his worsening condition and overall decline. Wishes to proceed with current management plan despite poor prognosis. states"I'm not going to trach him but I want to give him a fighting chance and give him the full 14 days on the vent and we can go to PEEP of 24 if need be." CYNTHIA MACIAS DO 10/15/20 0601: Subjective Subjective/Events-last exam Pt about the same CXR looks worse Talked to his and she wants to stay as in on the ventilator for at least 14 days and thinks tracheostomy is barbaric and refuses to do that and does not want him moved from the hospital Also stated that if he needs to be on PEEP of 24 " so be it" so she is now quoting ventilator settings of which I have personally never seen a PEEP of 24 Will stay the course Objective Exam General: Other (Sedated/Intubated/Criticall ill) Lungs: Other (Coarse bilaterally through all patricia. End expiratory wheezes heard right upper lobe) Heart: Regular Rate Assessment/Plan Assessment/Plan Assess & Plan/Chief Complaint Continue aggressive care Prognosis guarded Supervisory-Addendum Brief Verification & Attestation Participated in pt care: history, MDM, physical Personally performed: exam, history, MDM, supervision of care Care discussed with: Medical Student Procedures: n/a Results interpretation: Verified all documentation Verification and Attestation of Medical Student E/M Service A medical student performed and documented this service in my presence. I reviewed and verified all information documented by the medical student and made modifications to such information, when appropriate. I personally performed the physical exam and medical decision making. Cynthia Macias, Oct 15, 2020,06:00 NOEMÍ PASTOR MED STUDENT Oct 14, 2020 11:28 CYNTHIA MACIAS DO Oct 15, 2020 06:01
[2020-10-14] MEDS: LORazepam INJ 2 MG/ML (ATIVAN) VIAL IVP PRN (11:32)
[2020-10-14] MEDS: NS IV 1000 ML 1,000 ML IV SCH (11:33)
[2020-10-14] MEDS: ACETAMINOPHEN 650 MG SUPP (TYLENOL) PR PRN ×2 (11:36→16:48)
[2020-10-14] MEDS: ENOXAPARIN 40 MG/0.4 ML (LOVENOX) SYR SC SCH ×2 (11:45→23:30)
[2020-10-14] MEDS: fentaNYL DRIP PRE-MIX 250 ML IV SCH ×2 (12:00→20:54)
[2020-10-14] MEDS: DexMEDEtomidine 250 ML DRIP 250 ML IV SCH ×2 (12:01→23:35)
[2020-10-14 14:59] VITALS: BP 110/72
[2020-10-14 18:53] VITALS: BP 108/71
[2020-10-14 21:39] VITALS: BP 108/71
[2020-10-15 02:33] VITALS: BP 105/89
[2020-10-15] MEDS: RT-ALBUTEROL HFA 8.5 GM INHALER IH SCH ×6 (02:33→22:28)
[2020-10-15 03:18] LABS: ABG BASE EXCESS 7.6 MMOL/L (-2.5-2.5); ABG OXYGEN SATURATION 100 % (94-100); ABG PCO2 50 MMHG (35-45); ABG PH 7.43 (7.37-7.43); ABG PO2 175 MMHG (79-93); ABG TCO2 33.4 MMOL/L (21.0-31.0)
[2020-10-15 03:19] LABS: ALLENS TEST YES-POS; INSPIRED O2 80%; PATIENT TEMP 37; VENTILATOR YES
[2020-10-15 03:42] LABS: POTASSIUM 4.9 MMOL/L (3.6-5.0)
[2020-10-15 03:43] LABS: CALCIUM 8.9 MG/DL (8.5-10.1)
[2020-10-15 03:44] LABS: TOTAL PROTEIN 7.3 GM/DL (6.4-8.2)
[2020-10-15 03:46] LABS: BILIRUBIN,TOTAL 0.4 MG/DL (0.1-1.0)
[2020-10-15 03:48] LABS: CREATININE SERUM 0.69 MG/DL (0.60-1.30)
[2020-10-15 03:49] LABS: BILIRUBIN,DIRECT 0.1 MG/DL (0.0-0.3); BILIRUBIN,INDIRECT 0.3 MG/DL
[2020-10-15 03:51] LABS: MAGNESIUM 2.1 MG/DL (1.6-2.4)
[2020-10-15 04:30] LABS: BASOPHILS % (AUTO) 0 % (0-10); EOSINOPHILS # (AUTO) 0.1 10^3/uL (0.0-0.3); EOSINOPHILS % (AUTO) 1 % (0-10); HEMATOCRIT 39 % (40-54); HEMOGLOBIN 11.9 g/dL (13.3-17.7); LYMPHOCYTES % (AUTO) 22 % (12-44); MEAN CORPUSCULAR HEMOGLOBIN 27 pg (25-34); MEAN CORPUSCULAR HGB CONC 31 g/dL (32-36); MEAN CORPUSCULAR VOLUME 89 fL (80-99); MEAN PLATELET VOLUME 11.6 fL (9.0-12.2); MONOCYTES # (AUTO) 0.4 10^3/uL (0.0-1.0); MONOCYTES % (AUTO) 4 % (0-12); NEUTROPHILS # (AUTO) 6.4 10^3/uL (1.8-7.8); NEUTROPHILS % (AUTO) 71 % (42-75); PLATELET COUNT 258 10^3/uL (130-400); WHITE BLOOD COUNT 9.1 10^3/uL (4.3-11.0)
[2020-10-15] MEDS: fentaNYL DRIP PRE-MIX 250 ML IV SCH ×4 (04:37→23:55)
[2020-10-15] MEDS: KCL 20 MEQ TAB (K-DUR) PO SCH (05:50)
[2020-10-15] MEDS: MAGNESIUM 1 GM/100 ML IVPB 100 ML IV SCH (05:50)
[2020-10-15] MEDS: inSUlin ASPART (NovoLOG) 1 UNIT/0.01 ML (CHARGE PER UNIT) SC SCH ×4 (05:50→23:49)
[2020-10-15] MEDS: POTASSIUM CL 10MEQ/50ML IVPB 50 ML IV SCH (05:50)
[2020-10-15] MEDS: METOCLOPRAMIDE INJ 10 MG/2 ML (REGLAN) IVP SCH ×4 (06:13→23:49)
--- NOTE | 2020-10-15 06:54 | Diagnostic Imaging Report ---
Indication: Respiratory distress Portable chest shows normal heart size. There are persistent bilateral infiltrates similar to the 10/14/2020 study. There is no effusion or pneumothorax. The ET tube remains in place. IMPRESSION: Stable bilateral infiltrates. Dictated by: Dictated on workstation # [id number]
--- NOTE | 2020-10-15 06:56 | Occ Therapy Progress Note ---
Therapy Progress Note Pt is currently intubated. OT will continue to monitor pt status and initiate treatment when pt is medically stable and able to actively participate in skilled therapy. LAURA JACKSON Oct 15, 2020 06:56
[2020-10-15 07:25] VITALS: BP 95/66
[2020-10-15] MEDS: PANTOPRAZOLE 40 MG (PROTONIX) VIAL IV SCH (08:00)
[2020-10-15] MEDS: LACRI-LUBE OPTHALMIC OINT 3.5 GM TUBE OU SCH ×2 (08:01→20:44)
[2020-10-15] MEDS: ACETAMINOPHEN 325 MG TABLET PO PRN (08:03)
--- NOTE | 2020-10-15 09:15 | Tele-ICU Progress Note ---
Subjective Date Seen by a Provider: Oct 15, 2020 Time Seen by a Provider: 07:30 Subjective/Events-last exam This virtual visit was conducted using real time audio/video. Thank you for asking us to see this patient for respiratory insufficiency and distress due to Covid pna. HPC: Recent events: yeast in sputum, Temp 38 degrees, has PICC. PE: O2 sat 95% on 60% (decreased from 80%)/+14. HEENT: No obvious masses, adenopathy or JVD. Chest: clear to auscultation, diminished. CV: RRR S1 S2 No murmur or added sounds. Abd: Non-tender. Bowel sounds Y. : Unremarkable. Chapman Y . 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 Extremities: 1+ edema. Capillary refill < 3 seconds. Skin: unremarkable. Results: Decreased Hb 11.5., Elevated BUN 20, BG 153. AB.43/50/175. A/P: Respiratory insufficiency/distress/failure: Cont vent, Dex, Noe., Insulin, versed drip. Available chart/ vitals / labs /images reviewed. Video assessment done using teleICU camera, rest of exam as per RN. Monitor for increasing oxygenation needs. Panculture and consider empiric abx/anti fungal. Discussed with OSKAR Keith. Asked RN to reach out to eICU if any questions or concerns later. Time spent with patient/family/coordination of care with other health professionals (mins):28 Review of Systems General: Other Sepsis Event Evaluation Height, Weight, BMI Height: 5'7.00" Weight: 250lbs. 0oz. 113.686010hq; 40.69 BMI Method:Stated Focused Exam Lactate Level 10/15/20 03:05: Lactic Acid Level 1.37 Exam Exam Patient acknowledged, consented, and participated in this virtual visit which was conducted using real time audio/video Vital Signs Date Time Temp Pulse Resp B/P (MAP) Pulse Ox O2 Delivery O2 Flow Rate FiO2 10/15/20 08:03 38.0 10/15/20 08:00 94 Mechanical Ventilator 55 10/15/20 07:25 80 20 89 55 10/15/20 06:34 37.6 20 95 Mechanical Ventilator 55.00 10/15/20 06:00 66 20 94/67 96 Mechanical Ventilator 70.00 10/15/20 05:00 65 20 96/69 96 Mechanical Ventilator 70.00 10/15/20 05:00 96 20 10/15/20 05:00 96 Mechanical Ventilator 60 10/15/20 04:30 65 20 97/69 95 Mechanical Ventilator 70.00 10/15/20 04:15 72 20 100/69 95 Mechanical Ventilator 85.00 10/15/20 04:00 38.1 10/15/20 04:00 96 Mechanical Ventilator 70 10/15/20 03:00 38.2 58 20 105/71 95 Mechanical Ventilator 85.00 10/15/20 02:33 57 20 95 80 10/15/20 02:00 38.1 57 20 103/69 94 Mechanical Ventilator 85.00 10/15/20 01:00 60 10/15/20 01:00 38.0 57 20 103/69 94 Mechanical Ventilator 85.00 10/15/20 00:00 38.2 64 20 104/64 95 Mechanical Ventilator 85.00 10/15/20 00:00 38.0 10/15/20 00:00 37.9 10/14/20 23:59 96 Mechanical Ventilator 80 10/14/20 23:35 60 10/14/20 23:30 38.2 10/14/20 23:00 38.2 57 20 110/73 95 Mechanical Ventilator 85.00 10/14/20 22:00 38.1 58 20 108/73 94 Mechanical Ventilator 85.00 10/14/20 21:50 72 10/14/20 21:39 61 20 93 80 10/14/20 21:00 38.1 62 20 109/77 94 Mechanical Ventilator 85.00 10/14/20 20:00 96 Mechanical Ventilator 80 10/14/20 20:00 38.1 59 20 108/73 94 Mechanical Ventilator 85.00 10/14/20 19:00 38.0 61 20 108/72 94 Mechanical Ventilator 85.00 10/14/20 19:00 61 10/14/20 18:53 61 20 93 80 10/14/20 18:00 38.1 56 20 111/72 95 Mechanical Ventilator 85.00 10/14/20 17:18 38.1 10/14/20 17:00 37.2 56 20 113/73 94 Mechanical Ventilator 85.00 10/14/20 16:51 94 Mechanical Ventilator 80 10/14/20 16:48 38.1 8/31/21 16:00 38.0 55 20 111/73 94 Mechanical Ventilator 85.00 10/14/20 15:00 37.9 60 20 110/72 94 Mechanical Ventilator 85.00 10/14/20 14:59 63 20 93 80 10/14/20 14:00 37.8 66 20 108/72 (84) 94 Mechanical Ventilator 85.00 10/14/20 13:23 74 20 109/74 10/14/20 13:00 38.0 68 16 108/73 (85) 93 Mechanical Ventilator 85.00 10/14/20 12:57 70 10/14/20 12:06 38.0 10/14/20 12:01 72 10/14/20 12:00 38.0 71 21 111/71 (84) 93 Mechanical Ventilator 85.00 10/14/20 11:49 93 Mechanical Ventilator 85 10/14/20 11:36 38.2 10/14/20 11:22 70 21 95 80 10/14/20 11:00 38.5 67 20 101/63 (76) 95 Mechanical Ventilator 85.00 10/14/20 10:00 38.5 70 17 100/64 (76) 93 Mechanical Ventilator 85.00 I & O 10/15/20 06:59 Intake Total 2220 ml Output Total 2390 ml Balance -170 ml Height & Weight Height: 5'7.00" Weight: 250lbs. 0oz. 113.712693kp; 40.69 BMI Method:Stated General Appearance: No Apparent Distress, WD/WN, Chronically ill, Obese, Other (Sedated and intubated) HEENT: Other (Sedated and endotracheal tube in place) Neck: Full Range of Motion, Normal Inspection, Non Tender, Supple, Carotid Bruit Respiratory: Crackles, Decreased Breath Sounds Cardiovascular: Regular Rate, Rhythm, Bradycardia Capillary Refill: Less Than 3 Seconds Peripheral Pulses: 1+ Dorsalis Pedis (R), 1+ Left Dors-Pedis (L) Gastrointestinal: normal bowel sounds, non tender Extremity: Normal Capillary Refill, Normal Inspection, No Pedal Edema, Other (right arm PICC, site look ok) Skin: Normal Color, Warm/Dry Lymphatic: No Adenopathy Results Lab Laboratory Tests 10/14/20 03:45 10/14/20 06:10 10/15/20 03:05 Assessment/Plan Assessment/Plan see free text Critical Care: Ventilator Management Time spent on discussion(mins): 0 DAY FIELD MD Oct 15, 2020 09:15
[2020-10-15] MEDS: LORazepam INJ 2 MG/ML (ATIVAN) VIAL IVP PRN (09:50)
--- NOTE | 2020-10-15 10:21 | Physical Therapy Progress Note ---
Therapy Progress Note Patient currently sedated and intubated. PT will continue to follow patient status and initiate treatment when patient is medically stable and able to actively participate with skilled therapy. MACARIO BARAHONA PT Oct 15, 2020 10:21
[2020-10-15] MEDS: NS IV 1000 ML 1,000 ML IV SCH ×2 (10:50→12:08)
[2020-10-15 10:52] VITALS: BP 108/71
[2020-10-15] MEDS: LEVOTHYROXINE 100 MCG INJ (SYNTHROID) VIAL IV SCH (10:59)
[2020-10-15] MEDS: ENOXAPARIN 40 MG/0.4 ML (LOVENOX) SYR SC SCH ×2 (11:00→23:49)
[2020-10-15] MEDS: LORazepam INJECTION FOR DRIP 20 MG in D5W 100 ML IVPB 90 ML IV SCH ×2 (11:09→22:35)
[2020-10-15] MEDS: ACETAMINOPHEN 650 MG SUPP (TYLENOL) PR PRN ×2 (12:09→16:45)
[2020-10-15] MEDS ORDERED: ANIDULAFUNGIN INJECTION 200 MG in NS (IVPB) 250 ML IV ONE (12:45)
[2020-10-15] MEDS: DexMEDEtomidine 250 ML DRIP 250 ML IV SCH (14:56)
[2020-10-15] MEDS: MIDAZOLAM DRIP PRE-MIX 100 ML IV SCH (14:58)
--- NOTE | 2020-10-15 16:53 | Progress Note ---
Subjective Date Seen by a Provider: Oct 15, 2020 Time Seen by a Provider: 10:30 Subjective/Events-last exam Pt about the same TSH 6.99 so will start Thyroid IV since we are holding feedings due to ileus Fever is still present Eraxis will be started due to yeast in all of the cultures Focused Exam Lactate Level 10/15/20 03:05: Lactic Acid Level 1.37 Objective Exam Last Set of Vital Signs Vital Signs Date Time Temp Pulse Resp B/P (MAP) Pulse Ox O2 Delivery O2 Flow Rate FiO2 10/15/20 16:45 37.5 10/15/20 16:42 95 Mechanical Ventilator 65 10/15/20 15:00 67 20 105/68 70.00 Capillary Refill : Less Than 3 Seconds I&O Intake and Output 10/15/20 00:00 Intake Total 1920 ml Output Total 2475 ml Balance -555 ml Intake Oral 0 ml IV Total 1100 ml Tube Feeding 520 ml Other 300 ml Output Urine Total 2475 ml General: Other (Sedated intubated) Lungs: Other (Coarse breath sounds all patricia) Heart: Regular Rate Abdomen: Other (Hypoactive bowel sounds) Results Lab Laboratory Tests 10/14/20 17:46: Glucometer 257H 10/14/20 23:02: Glucometer 178H 10/15/20 03:05: White Blood Count 9.1, Red Blood Count 4.38, Hemoglobin 11.9L, Hematocrit 39L, Mean Corpuscular Volume 89, Mean Corpuscular Hemoglobin 27, Mean Corpuscular Hemoglobin Concent 31L, Red Cell Distribution Width 13.6, Platelet Count 258, Mean Platelet Volume 11.6, Immature Granulocyte % (Auto) 2, Neutrophils (%) (Auto) 71, Lymphocytes (%) (Auto) 22, Monocytes (%) (Auto) 4, Eosinophils (%) (Auto) 1, Basophils (%) (Auto) 0, Neutrophils # (Auto) 6.4, Lymphocytes # (Auto) 2.0, Monocytes # (Auto) 0.4, Eosinophils # (Auto) 0.1, Basophils # (Auto) 0.0, Immature Granulocyte # (Auto) 0.2H, D-Dimer 1.13H, Blood Gas Puncture Site R RADIAL, Blood Gas Patient Temperature 37, Arterial Blood pH 7.43, Arterial Blood Partial Pressure CO2 50H, Arterial Blood Partial Pressure O2 175H, Arterial Blood HCO3 32H, Arterial Blood Total CO2 33.4H, Arterial Blood Oxygen Saturation 100, Arterial Blood Base Excess 7.6H, Casper Test YES-POS, Blood Gas Ventilator Setting YES, Blood Gas Inspired Oxygen 80%, Sodium Level 138, Potassium Level 4.9, Chloride Level 102, Carbon Dioxide Level 26, Anion Gap 10, Blood Urea Nitrogen 20H, Creatinine 0.69, Estimat Glomerular Filtration Rate 125, BUN/Creatinine Ratio 29, Glucose Level 153H, Lactic Acid Level 1.37, Calcium Level 8.9, Magnesium Level 2.1, Total Bilirubin 0.4, Direct Bilirubin 0.1, Indirect Bilirubin 0.3, Aspartate Amino Transf (AST/SGOT) 29, Alanine Aminotransferase (ALT/SGPT) 46, Alkaline Phosphatase 77, Total Protein 7.3, Albumin 3.0L, Lipase 79H, Thyroid Stimulating Hormone (TSH) 6.99H 10/15/20 11:07: Glucometer 264H Microbiology 10/13/20 Gram Stain - Final, Complete 10/13/20 Sputum Culture - Final, Complete YEAST 10/13/20 Blood Culture - Preliminary, Resulted No growth Assessment/Plan Assessment/Plan Assess & Plan/Chief Complaint 10/15/2020: Add back Eraxis Supportive care Start thyroid med Continue aggressive care Prognosis guarded Diagnosis/Problems Diagnosis/Problems (1) COVID-19 Status: Acute MIKAELA LAYNE DO Oct 15, 2020 16:53
[2020-10-15 22:31] VITALS: BP 106/76
[2020-10-16] MEDS: RT-ALBUTEROL HFA 8.5 GM INHALER IH SCH ×2 (03:00→06:25)
[2020-10-16 03:15] VITALS: BP 106/76
[2020-10-16 03:30] LABS: ABG BASE EXCESS 7.8 MMOL/L (-2.5-2.5); ABG OXYGEN SATURATION 93 % (94-100); ABG PCO2 54 MMHG (35-45); ABG PO2 71 MMHG (79-93); ABG TCO2 34.4 MMOL/L (21.0-31.0)
[2020-10-16 03:32] LABS: BASOPHILS % (AUTO) 0 % (0-10); EOSINOPHILS # (AUTO) 0.1 10^3/uL (0.0-0.3); EOSINOPHILS % (AUTO) 1 % (0-10); HEMATOCRIT 39 % (40-54); HEMOGLOBIN 11.9 g/dL (13.3-17.7); LYMPHOCYTES # (AUTO) 2.1 10^3/uL (1.0-4.0); LYMPHOCYTES % (AUTO) 19 % (12-44); MEAN CORPUSCULAR HEMOGLOBIN 27 pg (25-34); MEAN CORPUSCULAR HGB CONC 31 g/dL (32-36); MEAN CORPUSCULAR VOLUME 89 fL (80-99); MONOCYTES # (AUTO) 0.6 10^3/uL (0.0-1.0); MONOCYTES % (AUTO) 5 % (0-12); NEUTROPHILS # (AUTO) 8.1 10^3/uL (1.8-7.8); NEUTROPHILS % (AUTO) 73 % (42-75); PLATELET COUNT 268 10^3/uL (130-400)
[2020-10-16 03:35] LABS: ALLENS TEST POSITIVE; INSPIRED O2 60; PATIENT TEMP 36.9; VENTILATOR YES
[2020-10-16 03:49] LABS: CALCIUM 9.3 MG/DL (8.5-10.1); CREATININE SERUM 0.68 MG/DL (0.60-1.30); MAGNESIUM 2.1 MG/DL (1.6-2.4); POTASSIUM 3.9 MMOL/L (3.6-5.0)
[2020-10-16] MEDS: POTASSIUM CL 10MEQ/50ML IVPB 50 ML IV SCH (04:14)
[2020-10-16] MEDS: inSUlin ASPART (NovoLOG) 1 UNIT/0.01 ML (CHARGE PER UNIT) SC SCH ×4 (04:15→23:41)
[2020-10-16] MEDS: KCL 20 MEQ TAB (K-DUR) PO SCH (04:15)
[2020-10-16] MEDS: MAGNESIUM 1 GM/100 ML IVPB 100 ML IV SCH (04:15)
[2020-10-16] MEDS: MIDAZOLAM DRIP PRE-MIX 100 ML IV SCH ×3 (05:33→17:52)
[2020-10-16] MEDS: fentaNYL DRIP PRE-MIX 250 ML IV SCH ×4 (05:33→17:52)
[2020-10-16] MEDS: METOCLOPRAMIDE INJ 10 MG/2 ML (REGLAN) IVP SCH (05:34)
[2020-10-16] MEDS: LEVOTHYROXINE 100 MCG INJ (SYNTHROID) VIAL IV SCH (05:34)
[2020-10-16 06:25] VITALS: BP 109/67
--- NOTE | 2020-10-16 06:56 | Occ Therapy Progress Note ---
Therapy Progress Note Pt is currently intubated. OT will continue to monitor pt status and initiate treatment when pt is medically stable and able to actively participate in skilled therapy. LAURA JACKSON Oct 16, 2020 06:56
--- NOTE | 2020-10-16 07:28 | Diagnostic Imaging Report ---
Indication: Respiratory failure Portable chest 3:34 AM There is ET tube projects over the trachea. There is an NG tube. The position of the tip of the NG tube is indeterminate because of density but does appear to enter the stomach. There is diffuse alveolar nodular infiltrates in both lungs. There is no appreciable effusion or pneumothorax. IMPRESSION: Severe diffuse pulmonary infiltrates unchanged from previous day. Dictated by: Dictated on workstation # [id number]
--- NOTE | 2020-10-16 07:30 | Physical Therapy Progress Note ---
Therapy Progress Note Patient currently sedated and intubated. PT will continue to follow patient status and initiate treatment when patient is medically stable and able to actively participate with skilled therapy. SHEREEN TREJO PT Oct 16, 2020 07:30
[2020-10-16] MEDS: LORazepam INJ 2 MG/ML (ATIVAN) VIAL IVP PRN ×2 (08:41→13:01)
[2020-10-16] MEDS: PANTOPRAZOLE 40 MG (PROTONIX) VIAL IV SCH (08:42)
[2020-10-16] MEDS: LACRI-LUBE OPTHALMIC OINT 3.5 GM TUBE OU SCH ×2 (08:43→20:05)
[2020-10-16] MEDS: ANIDULAFUNGIN INJECTION 100 MG in NS (IVPB) 100 ML IV SCH (08:43)
[2020-10-16] MEDS: LORazepam INJECTION FOR DRIP 20 MG in D5W 100 ML IVPB 90 ML IV SCH ×3 (08:44→21:25)
[2020-10-16] MEDS ORDERED: METOCLOPRAMIDE INJ 10 MG/2 ML (REGLAN) IVP PRN (09:30)
--- NOTE | 2020-10-16 09:44 | Tele-ICU Progress Note ---
Subjective Date Seen by a Provider: Oct 16, 2020 Time Seen by a Provider: 09:43 Sepsis Event Evaluation Height, Weight, BMI Height: 5'7.00" Weight: 250lbs. 0oz. 113.657021km; 40.69 BMI Method:Stated Focused Exam Lactate Level 10/15/20 03:05: Lactic Acid Level 1.37 Exam Exam Patient acknowledged, consented, and participated in this virtual visit which was conducted using real time audio/video Vital Signs Date Time Temp Pulse Resp B/P (MAP) Pulse Ox O2 Delivery O2 Flow Rate FiO2 10/16/20 08:43 75 20 110/69 10/16/20 06:25 77 19 93 75 10/16/20 06:00 37.2 75 20 109/67 93 Mechanical Ventilator 75.00 10/16/20 05:33 84 10/16/20 05:00 37.1 80 20 110/68 93 Mechanical Ventilator 75.00 10/16/20 04:16 74 26 92 10/16/20 04:07 Mechanical Ventilator 75.00 10/16/20 04:06 93 Mechanical Ventilator 75 10/16/20 04:00 36.7 90 20 106/76 93 Mechanical Ventilator 60.00 10/16/20 03:15 75 20 90 60 10/16/20 03:00 36.9 75 20 109/71 91 Mechanical Ventilator 60.00 10/16/20 03:00 36.9 Mechanical Ventilator 60.00 10/16/20 02:00 37.1 67 20 109/72 92 Mechanical Ventilator 60.00 10/16/20 01:00 37.2 65 20 108/71 91 Mechanical Ventilator 60.00 10/16/20 01:00 63 10/16/20 00:05 92 Mechanical Ventilator 60 10/16/20 00:00 37.4 62 20 102/70 93 Mechanical Ventilator 60.00 10/15/20 23:00 37.5 63 20 101/69 92 Mechanical Ventilator 70.00 10/15/20 23:00 37.4 Mechanical Ventilator 60.00 10/15/20 22:31 66 20 93 60 10/15/20 22:00 37.7 60 20 103/69 94 Mechanical Ventilator 70.00 10/15/20 21:00 37.7 56 20 100/68 95 Mechanical Ventilator 70.00 10/15/20 20:30 53 10/15/20 20:00 37.7 53 20 103/71 94 Mechanical Ventilator 70.00 10/15/20 20:00 95 Mechanical Ventilator 70 10/15/20 19:00 37.7 55 20 100/69 93 Mechanical Ventilator 70.00 10/15/20 19:00 55 10/15/20 19:00 37.8 Mechanical Ventilator 70.00 10/15/20 18:46 58 20 93 65 10/15/20 18:00 55 20 103/67 95 Mechanical Ventilator 70.00 10/15/20 17:15 37.6 10/15/20 17:00 58 20 105/67 95 Mechanical Ventilator 70.00 10/15/20 16:45 37.5 10/15/20 16:42 95 Mechanical Ventilator 65 10/15/20 16:00 56 20 103/67 95 Mechanical Ventilator 70.00 10/15/20 15:00 67 20 105/68 95 Mechanical Ventilator 70.00 10/15/20 14:59 63 20 95 65 10/15/20 14:58 63 20 103/67 10/15/20 14:56 62 103/67 10/15/20 14:00 59 20 102/65 95 Mechanical Ventilator 70.00 10/15/20 13:00 59 20 103/69 94 Mechanical Ventilator 70.00 10/15/20 12:39 37.8 10/15/20 12:29 62 10/15/20 12:11 93 Mechanical Ventilator 65 10/15/20 12:09 38.0 10/15/20 12:00 62 20 101/66 93 Mechanical Ventilator 70.00 10/15/20 11:00 74 20 104/67 90 Mechanical Ventilator 70.00 10/15/20 10:52 68 20 90 60 10/15/20 10:00 72 20 100/64 90 Mechanical Ventilator 70.00 I & O 10/16/20 07:00 Intake Total 3115 ml Output Total 2585 ml Balance 530 ml Height & Weight Height: 5'7.00" Weight: 250lbs. 0oz. 113.229437qj; 40.69 BMI Method:Stated General Appearance: No Apparent Distress, WD/WN, Chronically ill, Obese, Other (Sedated and intubated) HEENT: Other (Sedated and endotracheal tube in place) Neck: Full Range of Motion, Normal Inspection, Non Tender, Supple, Carotid Bruit Respiratory: Crackles, Decreased Breath Sounds Cardiovascular: Regular Rate, Rhythm, Bradycardia Capillary Refill: Less Than 3 Seconds Peripheral Pulses: 1+ Dorsalis Pedis (R), 1+ Left Dors-Pedis (L) Gastrointestinal: normal bowel sounds, non tender Extremity: Normal Capillary Refill, Normal Inspection, No Pedal Edema, Other (right arm PICC, site look ok) Skin: Normal Color, Warm/Dry Lymphatic: No Adenopathy Results Lab Laboratory Tests 10/15/20 03:05 10/16/20 03:25 Assessment/Plan Assessment/Plan (Tele-ICU Physician , Progress Note ) Available chart/ vitals / labs / Images reviewed Video assessment done using teleICU camera, rest of exam as per RN Discussed with RN , EXAM PER RN = course breath sounds, edema Events overnight : Afebrile 37.2 - less then prior I/O = [id number] Drips: ns 20 Pressors: , hemodynamically stable Sedation gtt: ( RASS -3) versed 10, precedex 0.06, fentanyl 200 off sedation - follows all commands 10/16 - on right side , moves both spontaneously VENT SETTINGS. AC 20 450 +12 90% PAP 30 , plateau 17 ABG reviewed Consultants: Hospital course: 10/06 - ARF /intubated in other facility COVID , , Pfizer x1 09/23 , symptoms 09/28 , Dx 09/28 10/08 - transferred , AC 20 450 +12 100% PAP 30 , plateau 17 10/09 - AC 20 450 +12 90% PAP 28 , plateau 17 10/10-AC 20 450 +12 100 % PAP 32 10/13 -AC 20 450 +12 85 % PAP 32 10/16- AC 20 450 +14 75 % PAP 32 Now in ICU, hemodynamically stable Video assessment done using teleICU camera, rest of exam as per RN Discussed with RN. Consultants: VENT SETTINGS. AC 20 450 +14 75 % PAP 32 ABG reviewed A/P AHRF / ARDS due to severe COVID19 - intubated 10/06, now AC 20 450 +14 75 % PAP 32 - ( proned 60% -prone position daily 16 h - needs more seation with proning - conservative fluid strategy (aim for even or negative fluid balance - TRY DIURESE X1 TODAY [id number]/COVID-19 PNA (Pfizer x1 8/10 , symptoms 09/28 , Dx 09/28 ) -Steroids IV - started 10/08 -Hypercoagulable state , DDIMER 0.6 on 10/08 -> lovenox ppx dose , FEVER - probably due to COVID Suspected superimposed bact PNA pct -empiric abx started on 10/08, cefepime / doxy - FINISHED course - ACEVEDO RECULTURED 10/13 Less likely non-infection etiology - 10/14 cheched TSH , lipase and LFT ( CRP will not be helpfull - Yeast in sputum - less likely true pathogen , antifungal started 10/15 Hyperglycemia / newly Dx DM - ISS , close f/up on steroids Hyper TGL emia -TGL 280 on admission to this facility ) - propofol used prn increaded agitation - ativan , versed Lines : RIGHT PICC 10/08 , (Central Line Necessity Reviewed) Chapman: 10/06 OG: + Nutrition: start 10/09 - REGLAN to try 10/13 Analgesia: Anxiety/ delirium VTE Prophylaxis: nancy 40 q 12 Stress Ulcer Prophylaxis: PPI Glycemic Control: + Plans in collaboration with bedside consultants and IM MDs. Discussed with RN to reach out if any questions or concerns A total of 40 minutes of critical care time was devoted to this patient today, required to treat and/or prevent further deterioration of critical care condition ( as above ) . WENDIE THOMASON MD Oct 16, 2020 09:44
[2020-10-16 11:56] VITALS: BP 111/64
[2020-10-16] MEDS: RT-ALBUTEROL/IPRATROPIUM 3 ML (DUONEB) VIAL INH SCH ×4 (11:56→20:55)
[2020-10-16] MEDS: ENOXAPARIN 40 MG/0.4 ML (LOVENOX) SYR SC SCH ×2 (13:02→23:41)
[2020-10-16] MEDS ORDERED: PROPOFOL DRIP (ICU) 100 ML IV ONE (13:39)
--- NOTE | 2020-10-16 14:31 | Progress Note ---
SIRISHA RANDHAWA 10/16/20 1431: Subjective Date Seen by a Provider: Oct 16, 2020 Time Seen by a Provider: 08:10 Subjective/Events-last exam Pollo Evans is intubated with TV 420 / Peep 14 / Fio2 70% / RR 16. RN reports difficulty keeping him sedate. sedation medications have been increased. Focused Exam Lactate Level 10/15/20 03:05: Lactic Acid Level 1.37 Objective Exam Last Set of Vital Signs Vital Signs Date Time Temp Pulse Resp B/P (MAP) Pulse Ox O2 Delivery O2 Flow Rate FiO2 10/16/20 14:13 111/65 10/16/20 13:00 77 10/16/20 12:00 37.8 20 93 Mechanical Ventilator 75.00 10/16/20 11:56 80 Capillary Refill : Less Than 3 Seconds I&O Intake and Output 10/16/20 00:00 Intake Total 3130 ml Output Total 2810 ml Balance 320 ml Intake Oral 0 ml IV Total 2600 ml Tube Feeding 280 ml Other 250 ml Output Urine Total 2785 ml Gastric Drainage Total 25 ml General: Alert (occasionally opens eyes and looks at medical staff), Cooperative, Other (intubated. ) HEENT: Atraumatic, PERRLA Lungs: Clear to Auscultation, Normal Air Movement Heart: Regular Rate, No Murmurs Abdomen: Normal Bowel Sounds, Soft Extremities: Other (edema noted BL lower extremities) Results Lab Laboratory Tests 10/15/20 17:33: Glucometer 239H 10/15/20 19:52: Glucometer 210H 10/15/20 23:28: Glucometer 153H 10/16/20 03:25: White Blood Count 11.0, Red Blood Count 4.36, Hemoglobin 11.9L, Hematocrit 39L, Mean Corpuscular Volume 89, Mean Corpuscular Hemoglobin 27, Mean Corpuscular Hemoglobin Concent 31L, Red Cell Distribution Width 13.6, Platelet Count 268, Mean Platelet Volume 11.0, Immature Granulocyte % (Auto) 1, Neutrophils (%) (Auto) 73, Lymphocytes (%) (Auto) 19, Monocytes (%) (Auto) 5, Eosinophils (%) (Auto) 1, Basophils (%) (Auto) 0, Neutrophils # (Auto) 8.1H, Lymphocytes # (Auto) 2.1, Monocytes # (Auto) 0.6, Eosinophils # (Auto) 0.1, Basophils # (Auto) 0.0, Immature Granulocyte # (Auto) 0.1, Blood Gas Puncture Site RIGHT RADIAL, Blood Gas Patient Temperature 36.9, Arterial Blood pH 7.40, Arterial Blood Partial Pressure CO2 54H, Arterial Blood Partial Pressure O2 71L, Arterial Blood HCO3 33H, Arterial Blood Total CO2 34.4H, Arterial Blood Oxygen Saturation 93L, Arterial Blood Base Excess 7.8H, Casper Test POSITIVE, Blood Gas Ventilator Setting YES, Blood Gas Inspired Oxygen 60, Sodium Level 140, Potassium Level 3.9, Chloride Level 101, Carbon Dioxide Level 27, Anion Gap 12, Blood Urea Nitrogen 19H, Creatinine 0.68, Estimat Glomerular Filtration Rate 127, BUN/Creatinine Ratio 28, Glucose Level 113H, Calcium Level 9.3, Magnesium Level 2.1, Triglycerides Level 288H 10/16/20 10:14: Glucometer 199H 10/16/20 12:36: Glucometer 271H Microbiology 10/13/20 Gram Stain - Final, Complete 10/13/20 Sputum Culture - Final, Complete YEAST 10/13/20 Blood Culture - Preliminary, Resulted No growth Assessment/Plan Assessment/Plan Assess & Plan/Chief Complaint Covid 19 hypothyroidism 10/16/2020: on antifungal for sputum cultures. Supportive care Continue aggressive care Prognosis guarded CYNTHIA LAYNE DO 10/17/20 0610: Subjective Subjective/Events-last exam No major changes Conferred with RN Reviewed meds and labs Objective Exam General: Other (Intubated and sedated) Lungs: Clear to Auscultation, Normal Air Movement Heart: Regular Rate Assessment/Plan Assessment/Plan Assess & Plan/Chief Complaint Start thyroid IV Supportive care Vent management Prognosis guarded Supervisory-Addendum Brief Verification & Attestation Participated in pt care: history, MDM, physical Personally performed: exam, history, MDM, supervision of care Care discussed with: Medical Student Procedures: n/a Results interpretation: Verified all documentation Verification and Attestation of Medical Student E/M Service A medical student performed and documented this service in my presence. I reviewed and verified all information documented by the medical student and made modifications to such information, when appropriate. I personally performed the physical exam and medical decision making. Cynthia Layne Oct 17, 2020,06:09 SIRISHA RANDHAWA Oct 16, 2020 14:31 CYNTHIA LAYNE DO Oct 17, 2020 06:10
[2020-10-16] MEDS: DexMEDEtomidine 250 ML DRIP 250 ML IV SCH (17:51)
[2020-10-16 20:55] VITALS: BP 116/74
[2020-10-16] MEDS: ACETAMINOPHEN 650 MG SUPP (TYLENOL) PR PRN (23:42)
[2020-10-17] MEDS: fentaNYL DRIP PRE-MIX 250 ML IV SCH ×7 (01:35→20:21)
[2020-10-17] MEDS: RT-ALBUTEROL/IPRATROPIUM 3 ML (DUONEB) VIAL INH SCH ×6 (01:43→22:21)
[2020-10-17 01:44] VITALS: BP 117/75
[2020-10-17] MEDS: DexMEDEtomidine 250 ML DRIP 250 ML IV SCH ×3 (02:22→18:06)
[2020-10-17] MEDS: MIDAZOLAM DRIP PRE-MIX 100 ML IV SCH ×3 (02:23→18:02)
[2020-10-17 03:13] LABS: BASOPHILS % (AUTO) 0 % (0-10); EOSINOPHILS % (AUTO) 0 % (0-10); HEMATOCRIT 37 % (40-54); LYMPHOCYTES # (AUTO) 1.1 10^3/uL (1.0-4.0); LYMPHOCYTES % (AUTO) 13 % (12-44); MEAN CORPUSCULAR HEMOGLOBIN 27 pg (25-34); MEAN CORPUSCULAR HGB CONC 30 g/dL (32-36); MEAN CORPUSCULAR VOLUME 91 fL (80-99); MONOCYTES # (AUTO) 0.4 10^3/uL (0.0-1.0); MONOCYTES % (AUTO) 5 % (0-12); NEUTROPHILS # (AUTO) 6.4 10^3/uL (1.8-7.8); NEUTROPHILS % (AUTO) 80 % (42-75); PLATELET COUNT 267 10^3/uL (130-400)
[2020-10-17 03:20] LABS: ABG OXYGEN SATURATION 98 % (94-100); ABG PCO2 53 MMHG (35-45); ABG PH 7.37 (7.37-7.43); ABG PO2 97 MMHG (79-93); ABG TCO2 31.6 MMOL/L (21.0-31.0)
[2020-10-17 03:21] LABS: ALLENS TEST YES-POS; INSPIRED O2 60%; PATIENT TEMP 37.1; VENTILATOR YES
[2020-10-17 03:23] LABS: POTASSIUM 4.2 MMOL/L (3.6-5.0)
[2020-10-17 03:24] LABS: CALCIUM 9.1 MG/DL (8.5-10.1)
[2020-10-17 03:29] LABS: CREATININE SERUM 0.72 MG/DL (0.60-1.30)
[2020-10-17 03:31] LABS: MAGNESIUM 2.1 MG/DL (1.6-2.4)
[2020-10-17] MEDS: KCL 20 MEQ TAB (K-DUR) PO SCH (04:02)
[2020-10-17] MEDS: POTASSIUM CL 10MEQ/50ML IVPB 50 ML IV SCH (04:02)
[2020-10-17] MEDS: MAGNESIUM 1 GM/100 ML IVPB 100 ML IV SCH (04:02)
[2020-10-17] MEDS: LEVOTHYROXINE 100 MCG INJ (SYNTHROID) VIAL IV SCH (05:55)
[2020-10-17] MEDS: inSUlin ASPART (NovoLOG) 1 UNIT/0.01 ML (CHARGE PER UNIT) SC SCH ×3 (05:55→18:02)
--- NOTE | 2020-10-17 07:14 | Physical Therapy Progress Note ---
Therapy Progress Note Patient currently sedated and intubated. PT will continue to follow patient status and initiate treatment when patient is medically stable and able to actively participate with skilled therapy. SHEREEN TREJO PT Oct 17, 2020 07:14
[2020-10-17 07:16] VITALS: BP 115/71
--- NOTE | 2020-10-17 07:34 | Diagnostic Imaging Report ---
Reason for examination: Intubation. Semiupright AP portable chest was obtained and compared to yesterday. ET tube tip is just below the clavicles. NG tube is in the distal stomach. Right PICC line remains in place. Cardiomediastinal silhouette is unchanged. Bilateral 5 lobe pulmonary mixed infiltrates without significant change given the differences in technique. No effusion or pneumothorax. Impression: 1. Support lines and tubes are in good position where visible. Bilateral infiltrates without much change. No pneumothorax. Dictated by: Dictated on workstation # [id number]
[2020-10-17] MEDS: PANTOPRAZOLE 40 MG (PROTONIX) VIAL IV SCH (08:12)
[2020-10-17] MEDS: FUROSEMIDE 40 MG/4 ML INJ (LASIX) IVP SCH (08:13)
[2020-10-17] MEDS: ANIDULAFUNGIN INJECTION 100 MG in NS (IVPB) 100 ML IV SCH (08:24)
--- NOTE | 2020-10-17 09:42 | Progress Note ---
SIRISHA RANDHAWA 10/17/20 0942: Subjective Date Seen by a Provider: Oct 17, 2020 Time Seen by a Provider: 08:45 Subjective/Events-last exam Pollo Evans is intubated and sedated. TV 450, PEEP 14, FiO2 45%, RR 20. Overall condition and appearance of patient has not changed substantially in the past 2 days. Focused Exam Lactate Level 10/15/20 03:05: Lactic Acid Level 1.37 Objective Exam Last Set of Vital Signs Vital Signs Date Time Temp Pulse Resp B/P (MAP) Pulse Ox O2 Delivery O2 Flow Rate FiO2 10/17/20 09:00 68 20 120/81 93 Mechanical Ventilator 45.00 10/17/20 07:55 37.2 10/17/20 07:16 45 Capillary Refill : Less Than 3 Seconds I&O Intake and Output 10/17/20 00:00 Intake Total 985 ml Output Total 2125 ml Balance -1140 ml Intake Oral 0 ml IV Total 450 ml Tube Feeding 235 ml Other 300 ml Output Urine Total 2125 ml General: Other (sedated, intubated. ) Neck: Supple, No JVD Lungs: Normal Air Movement, Other (no apparent respiratory distress. intubated.) Abdomen: Soft, No Tenderness Extremities: Other (bilateral lower extremity edema.) Skin: No Rashes (chest, abdomen, pelvis, upper extremities) Results Lab Laboratory Tests 10/16/20 10:14: Glucometer 199H 10/16/20 12:36: Glucometer 271H 10/16/20 17:47: Glucometer 286H 10/16/20 23:20: Glucometer 213H 10/17/20 03:08: White Blood Count 8.0, Red Blood Count 4.05L, Hemoglobin 11.0L, Hematocrit 37L, Mean Corpuscular Volume 91, Mean Corpuscular Hemoglobin 27, Mean Corpuscular Hemoglobin Concent 30L, Red Cell Distribution Width 13.8, Platelet Count 267, Mean Platelet Volume 11.0, Immature Granulocyte % (Auto) 1, Neutrophils (%) (Auto) 80H, Lymphocytes (%) (Auto) 13, Monocytes (%) (Auto) 5, Eosinophils (%) (Auto) 0, Basophils (%) (Auto) 0, Neutrophils # (Auto) 6.4, Lymphocytes # (Auto) 1.1, Monocytes # (Auto) 0.4, Eosinophils # (Auto) 0.0, Basophils # (Auto) 0.0, Immature Granulocyte # (Auto) 0.1, Sodium Level 138, Potassium Level 4.2, Chloride Level 101, Carbon Dioxide Level 27, Anion Gap 10, Blood Urea Nitrogen 14, Creatinine 0.72, Estimat Glomerular Filtration Rate 119, BUN/Creatinine Ratio 19, Glucose Level 231H, Calcium Level 9.1, Magnesium Level 2.1 10/17/20 03:12: Blood Gas Puncture Site LEFT RADIAL, Blood Gas Patient Temperature 37.1, Arterial Blood pH 7.37, Arterial Blood Partial Pressure CO2 53H, Arterial Blood Partial Pressure O2 97H, Arterial Blood HCO3 30H, Arterial Blood Total CO2 31.6H , Arterial Blood Oxygen Saturation 98, Arterial Blood Base Excess 5.0H, Casper Test YES-POS, Blood Gas Ventilator Setting YES, Blood Gas Inspired Oxygen 60% Microbiology 10/13/20 Gram Stain - Final, Complete 10/13/20 Sputum Culture - Final, Complete YEAST 10/13/20 Blood Culture - Preliminary, Resulted No growth Assessment/Plan Assessment/Plan Assess & Plan/Chief Complaint Covid 19, intubated. TV 450 / Peep 14 / FiO2 45% / RR 20 persistent mild hypercapnia hypothyroidism 10/17/2020: mild drop in HGB from 9.8 to 9.0, no signs of external bleeding. Continue to monitor. continue medications Supportive care Continue aggressive care Prognosis guarded CYNTHIA LAYNE DO 10/18/20 0539: Subjective Subjective/Events-last exam Patient now prone FiO2 down to 45% No major changes in status Objective Exam General: Other (sedated, intubated. ) Lungs: Clear to Auscultation, Normal Air Movement Assessment/Plan Assessment/Plan Assess & Plan/Chief Complaint Supportive care No change in status Overall prognosis poor Supervisory-Addendum Brief Verification & Attestation Participated in pt care: history, MDM, physical Personally performed: exam, history, MDM, supervision of care Care discussed with: Medical Student Procedures: n/a Results interpretation: Verified all documentation Verification and Attestation of Medical Student E/M Service A medical student performed and documented this service in my presence. I reviewed and verified all information documented by the medical student and made modifications to such information, when appropriate. I personally performed the physical exam and medical decision making. Cynthia Layne Oct 18, 2020,05:38 SIRISHA RANDHAWA Oct 17, 2020 09:42 CYNTHIA LAYNE DO Oct 18, 2020 05:39
--- NOTE | 2020-10-17 10:28 | Tele-ICU Progress Note ---
Subjective Date Seen by a Provider: Oct 17, 2020 Time Seen by a Provider: 10:27 Sepsis Event Evaluation Height, Weight, BMI Height: 5'7.00" Weight: 250lbs. 0oz. 113.347343lw; 40.69 BMI Method:Stated Focused Exam Lactate Level 10/15/20 03:05: Lactic Acid Level 1.37 Exam Exam Patient acknowledged, consented, and participated in this virtual visit which was conducted using real time audio/video Vital Signs Date Time Temp Pulse Resp B/P (MAP) Pulse Ox O2 Delivery O2 Flow Rate FiO2 10/17/20 10:00 70 20 112/75 92 Mechanical Ventilator 45.00 10/17/20 09:00 68 20 120/81 93 Mechanical Ventilator 45.00 10/17/20 08:27 64 20 116/74 10/17/20 08:00 67 20 117/74 93 Mechanical Ventilator 45.00 10/17/20 07:55 37.2 10/17/20 07:16 65 20 92 45 10/17/20 07:00 63 20 115/72 93 Mechanical Ventilator 45.00 10/17/20 07:00 61 10/17/20 06:05 Mechanical Ventilator 45.00 10/17/20 06:00 36.8 64 20 115/70 94 Mechanical Ventilator 60.00 10/17/20 05:15 63 28 94 10/17/20 05:00 36.7 66 20 117/73 94 Mechanical Ventilator 60.00 10/17/20 04:20 94 Mechanical Ventilator 60 10/17/20 04:00 36.7 58 20 115/70 96 Mechanical Ventilator 60.00 10/17/20 03:45 63 28 94 10/17/20 03:00 37.1 59 16 108/68 94 Mechanical Ventilator 60.00 10/17/20 02:23 63 10/17/20 02:22 63 10/17/20 02:00 37.3 61 19 109/70 94 Mechanical Ventilator 60.00 10/17/20 01:44 59 20 93 60 10/17/20 01:00 59 10/17/20 01:00 37.4 59 20 113/72 93 Mechanical Ventilator 60.00 10/17/20 00:06 37.3 10/17/20 00:03 94 Mechanical Ventilator 60 10/17/20 00:03 37.8 Mechanical Ventilator 60.00 10/17/20 00:00 37.4 65 19 111/71 92 Mechanical Ventilator 60.00 10/16/20 23:42 37.8 10/16/20 23:00 37.8 64 20 113/71 92 Mechanical Ventilator 60.00 10/16/20 22:00 38.0 67 19 115/70 91 Mechanical Ventilator 60.00 10/16/20 21:25 67 20 118/67 10/16/20 21:15 Mechanical Ventilator 60.00 10/16/20 21:00 38.4 57 19 118/67 94 Mechanical Ventilator 65.00 10/16/20 20:55 58 20 94 60 10/16/20 20:10 94 Mechanical Ventilator 60 10/16/20 20:00 38.4 58 20 112/72 94 Mechanical Ventilator 65.00 10/16/20 19:30 Mechanical Ventilator 65.00 10/16/20 19:00 60 10/16/20 19:00 38.3 60 20 114/75 94 Mechanical Ventilator 65.00 10/16/20 18:30 55 20 94 60 10/16/20 18:00 38.3 57 20 110/67 94 Mechanical Ventilator 75.00 10/16/20 17:52 56 10/16/20 17:51 55 10/16/20 17:30 38.3 58 13 108/67 95 Mechanical Ventilator 75.00 10/16/20 16:00 93 Mechanical Ventilator 65 10/16/20 15:00 38.1 66 93 Mechanical Ventilator 75.00 10/16/20 14:42 61 20 94 65 10/16/20 14:13 111/65 10/16/20 14:00 60 20 93 Mechanical Ventilator 75.00 10/16/20 13:00 37.8 73 20 110/66 94 Mechanical Ventilator 75.00 10/16/20 13:00 77 10/16/20 12:00 93 Mechanical Ventilator 75 10/16/20 12:00 37.8 67 20 100/60 93 Mechanical Ventilator 75.00 10/16/20 11:56 99 28 91 80 10/16/20 11:00 37.8 62 20 101/62 95 Mechanical Ventilator 75.00 I & O 10/17/20 07:00 Intake Total 800 ml Output Total 2200 ml Balance -1400 ml Height & Weight Height: 5'7.00" Weight: 250lbs. 0oz. 113.101063ph; 40.69 BMI Method:Stated General Appearance: No Apparent Distress, WD/WN, Chronically ill, Obese, Other (Sedated and intubated) HEENT: Other (Sedated and endotracheal tube in place) Neck: Full Range of Motion, Normal Inspection, Non Tender, Supple, Carotid Bruit Respiratory: Crackles, Decreased Breath Sounds Cardiovascular: Regular Rate, Rhythm, Bradycardia Capillary Refill: Less Than 3 Seconds Peripheral Pulses: 1+ Dorsalis Pedis (R), 1+ Left Dors-Pedis (L) Gastrointestinal: normal bowel sounds, non tender Extremity: Normal Capillary Refill, Normal Inspection, No Pedal Edema, Other (right arm PICC, site look ok) Skin: Normal Color, Warm/Dry Lymphatic: No Adenopathy Results Lab Laboratory Tests 10/16/20 03:25 10/17/20 03:08 Assessment/Plan Assessment/Plan (Tele-ICU Physician , Progress Note ) Available chart/ vitals / labs / Images reviewed Video assessment done using teleICU camera, rest of exam as per RN Discussed with RN , EXAM PER RN = course breath sounds, edema Events overnight : Afebrile 37.2 - less then prior I/O = neg 1 L Drips: ns 20 Pressors: , hemodynamically stable Sedation gtt: ( RASS -3) versed 10, precedex 0.06, fentanyl 200 off sedation - follows all commands 10/16 - moves all follow commands VENT SETTINGS and ABG reviewed Consultants: Hospital course: 10/06 - ARF /intubated in other facility COVID , , Pfizer x1 09/23 , symptoms 09/28 , Dx 09/28 10/08 - transferred , AC 20 450 +12 100% PAP 30 , plateau 17 10/09 - AC 20 450 +12 90% PAP 28 , plateau 17 10/10-AC 20 450 +12 100 % PAP 32 10/13 -AC 20 450 +12 85 % PAP 32 10/16- AC 20 450 +14 75 % PAP 32 10/17 - 45% Consultants: VENT SETTINGS. AC 20 450 +14 45 % PAP 32 ABG reviewed A/P AHRF / ARDS due to severe COVID19 - intubated 10/06, now AC 20 450 +14 75 % PAP 32 - ( proned 60% -prone position daily 16 h - needs more seation with proning TRY DIURESE again today good urine output , KEEP ON PEEP !$ UNTILL GET TO 40 % FIO2, PRONE TODAY [id number]/COVID-19 PNA (Pfizer x1 09/23 , symptoms 09/28 , Dx 09/28 ) -Steroids IV - started 10/08 -Hypercoagulable state , DDIMER 0.6 on 10/08 -> lovenox ppx dose FEVER - probably due to COVID Suspected superimposed bact PNA pct -empiric abx started on 10/08, cefepime / doxy - FINISHED course - ACEVEDO RECULTURED 10/13 Less likely non-infection etiology - 10/14 cheched TSH , lipase and LFT ( CRP will not be helpfull - Yeast in sputum - less likely true pathogen , antifungal started 10/15 Hyperglycemia / newly Dx DM - ISS , close f/up on steroids Hyper TGL emia -TGL 280 on admission to this facility ) - propofol used prn increaded agitation - ativan , versed Lines : RIGHT PICC 10/08 , (Central Line Necessity Reviewed) Chapman: 10/06 OG: + Nutrition: start 10/09 - REGLAN to try 10/13 Analgesia: Anxiety/ delirium VTE Prophylaxis: nancy 40 q 12 Stress Ulcer Prophylaxis: PPI Glycemic Control: + Plans in collaboration with bedside consultants and IM MDs. Discussed with RN to reach out if any questions or concerns A total of 40 minutes of critical care time was devoted to this patient today, required to treat and/or prevent further deterioration of critical care condition ( as above ) . WENDIE THOMASON MD Oct 17, 2020 10:28
[2020-10-17] MEDS ORDERED: FUROSEMIDE 40 MG/4 ML INJ (LASIX) IVP NR (10:30)
[2020-10-17] MEDS: LORazepam INJ 2 MG/ML (ATIVAN) VIAL IVP PRN (11:13)
[2020-10-17] MEDS: ENOXAPARIN 40 MG/0.4 ML (LOVENOX) SYR SC SCH (11:16)
[2020-10-17] MEDS ORDERED: PROPOFOL DRIP (ICU) 100 ML IV ONE (11:17)
[2020-10-17 11:29] VITALS: BP 118/76
[2020-10-17] MEDS: NS IV 1000 ML 1,000 ML IV SCH ×2 (11:40→18:04)
[2020-10-17] MEDS: LACRI-LUBE OPTHALMIC OINT 3.5 GM TUBE OU SCH ×2 (11:40→20:20)
[2020-10-17] MEDS: LORazepam INJECTION FOR DRIP 20 MG in D5W 100 ML IVPB 90 ML IV SCH (12:42)
[2020-10-17] MEDS: ACETAMINOPHEN 650 MG SUPP (TYLENOL) PR PRN (12:48)
[2020-10-17 13:45] VITALS: BP 110/65
[2020-10-17 18:51] VITALS: BP 101/67
[2020-10-17 22:21] VITALS: BP 110/71
[2020-10-18] MEDS: LORazepam INJECTION FOR DRIP 20 MG in D5W 100 ML IVPB 90 ML IV SCH ×3 (00:30→20:33)
[2020-10-18] MEDS: ENOXAPARIN 40 MG/0.4 ML (LOVENOX) SYR SC SCH ×3 (00:30→23:23)
[2020-10-18] MEDS: inSUlin ASPART (NovoLOG) 1 UNIT/0.01 ML (CHARGE PER UNIT) SC SCH ×5 (00:33→23:23)
[2020-10-18] MEDS: fentaNYL DRIP PRE-MIX 250 ML IV SCH ×5 (02:36→15:42)
[2020-10-18] MEDS: MIDAZOLAM DRIP PRE-MIX 100 ML IV SCH ×3 (02:37→15:42)
[2020-10-18] MEDS: DexMEDEtomidine 250 ML DRIP 250 ML IV SCH ×3 (02:37→20:32)
[2020-10-18] MEDS: RT-ALBUTEROL/IPRATROPIUM 3 ML (DUONEB) VIAL INH SCH ×6 (02:42→22:07)
[2020-10-18 02:43] VITALS: BP 114/71
[2020-10-18 04:05] LABS: BASOPHILS % (AUTO) 0 % (0-10); EOSINOPHILS % (AUTO) 0 % (0-10); HEMATOCRIT 31 % (40-54); HEMOGLOBIN 9.5 g/dL (13.3-17.7); LYMPHOCYTES # (AUTO) 1.4 10^3/uL (1.0-4.0); LYMPHOCYTES % (AUTO) 20 % (12-44); MEAN CORPUSCULAR HEMOGLOBIN 27 pg (25-34); MEAN CORPUSCULAR HGB CONC 30 g/dL (32-36); MEAN CORPUSCULAR VOLUME 90 fL (80-99); MEAN PLATELET VOLUME 11.4 fL (9.0-12.2); MONOCYTES # (AUTO) 0.4 10^3/uL (0.0-1.0); MONOCYTES % (AUTO) 6 % (0-12); NEUTROPHILS # (AUTO) 5.1 10^3/uL (1.8-7.8); NEUTROPHILS % (AUTO) 74 % (42-75); PLATELET COUNT 215 10^3/uL (130-400); WHITE BLOOD COUNT 6.9 10^3/uL (4.3-11.0)
[2020-10-18] MEDS: ACETAMINOPHEN 325 MG TABLET PO PRN (04:09)
[2020-10-18 04:15] LABS: ABG BASE EXCESS 10.1 MMOL/L (-2.5-2.5); ABG OXYGEN SATURATION 94 % (94-100); ABG PCO2 57 MMHG (35-45); ABG PH 7.41 (7.37-7.43); ABG PO2 84 MMHG (79-93); ABG TCO2 36.4 MMOL/L (21.0-31.0)
[2020-10-18 04:19] LABS: POTASSIUM 3.3 MMOL/L (3.6-5.0)
[2020-10-18 04:21] LABS: ALLENS TEST YES-POS; INSPIRED O2 20; PATIENT TEMP 38.2; VENTILATOR YES
[2020-10-18 04:24] LABS: CREATININE SERUM 0.56 MG/DL (0.60-1.30)
[2020-10-18 04:27] LABS: MAGNESIUM 1.7 MG/DL (1.6-2.4)
[2020-10-18] MEDS: KCL 20 MEQ TAB (K-DUR) PO SCH (05:18)
[2020-10-18] MEDS: MAGNESIUM 1 GM/100 ML IVPB 100 ML IV SCH ×3 (06:29→07:18)
[2020-10-18] MEDS: POTASSIUM CL 10MEQ/50ML IVPB 50 ML IV SCH ×3 (06:30→07:52)
[2020-10-18] MEDS: LEVOTHYROXINE 100 MCG INJ (SYNTHROID) VIAL IV SCH (06:42)
[2020-10-18 07:11] VITALS: BP 95/68
--- NOTE | 2020-10-18 07:44 | Progress Note ---
Subjective Date Seen by a Provider: Oct 18, 2020 Time Seen by a Provider: 11:00 Subjective/Events-last exam Patient still intubated FiO2 of 35% PEEP of 14 Urinary output is good Eraxis maintained Sliding scale insulin regimen maintain Lovenox maintained Levemir giving good results with glycemic control Objective Exam Last Set of Vital Signs Vital Signs Date Time Temp Pulse Resp B/P (MAP) Pulse Ox O2 Delivery O2 Flow Rate FiO2 10/18/20 07:11 71 20 94 45 10/18/20 06:00 38.6 105/67 Mechanical Ventilator 45.00 Capillary Refill : Less Than 3 Seconds I&O Intake and Output 10/18/20 00:00 Intake Total 920 ml Output Total 6625 ml Balance -5705 ml Intake Oral 0 ml IV Total 100 ml Tube Feeding 520 ml Other 300 ml Output Urine Total 6625 ml General: Other (Sedated intubated) Lungs: Other (Crackles and wheezes) Results Lab Laboratory Tests 10/17/20 11:43: Glucometer 284H 10/17/20 17:37: Glucometer 333H 10/17/20 20:34: Glucometer 280H 10/18/20 00:23: Glucometer 249H 10/18/20 03:45: White Blood Count 6.9, Red Blood Count 3.48L, Hemoglobin 9.5L, Hematocrit 31L, Mean Corpuscular Volume 90, Mean Corpuscular Hemoglobin 27, Mean Corpuscular Hemoglobin Concent 30L, Red Cell Distribution Width 13.8, Platelet Count 215, Mean Platelet Volume 11.4, Immature Granulocyte % (Auto) 1, Neutrophils (%) (Auto) 74, Lymphocytes (%) (Auto) 20, Monocytes (%) (Auto) 6, Eosinophils (%) (Auto) 0, Basophils (%) (Auto) 0, Neutrophils # (Auto) 5.1, Lymphocytes # (Auto) 1.4, Monocytes # (Auto) 0.4, Eosinophils # (Auto) 0.0, Basophils # (Auto) 0.0, Immature Granulocyte # (Auto) 0.1, Blood Gas Puncture Site R RADIAL, Blood Gas Patient Temperature 38.2, Arterial Blood pH 7.41, Arterial Blood Partial Pressure CO2 57H, Arterial Blood Partial Pressure O2 84, Arterial Blood HCO3 35H , Arterial Blood Total CO2 36.4H, Arterial Blood Oxygen Saturation 94, Arterial Blood Base Excess 10.1H, Casper Test YES-POS, Blood Gas Ventilator Setting YES, Blood Gas Inspired Oxygen 20, Sodium Level 142, Potassium Level 3.3L, Chloride Level 109H, Carbon Dioxide Level 25, Anion Gap 8, Blood Urea Nitrogen 16, Creatinine 0.56L, Estimat Glomerular Filtration Rate 158, BUN/Creatinine Ratio 29, Glucose Level 174H, Calcium Level 7.0L, Magnesium Level 1.7 Microbiology 10/13/20 Gram Stain - Final, Complete 10/13/20 Sputum Culture - Final, Complete YEAST 10/13/20 Blood Culture - Preliminary, Resulted No growth Assessment/Plan Assessment/Plan Assess & Plan/Chief Complaint Assessment: Acute hypoxic respiratory failure COVID-19 pneumonia Ventilator dependence day #11 Presumed obstructive sleep apnea New onset diabetes hemoglobin A1c 9.0 Oral tobacco user Plan: Maintain intubation Appreciate eICU Supportive care Diagnosis/Problems Diagnosis/Problems (1) COVID-19 Status: Acute MIKAELA LAYNE DO Oct 18, 2020 07:44
[2020-10-18] MEDS: LACRI-LUBE OPTHALMIC OINT 3.5 GM TUBE OU SCH ×2 (07:53→20:31)
[2020-10-18] MEDS: ONDANSETRON 4 MG/2 ML (SDV) Z0FRAN IV PRN (07:53)
[2020-10-18] MEDS: ANIDULAFUNGIN INJECTION 100 MG in NS (IVPB) 100 ML IV SCH (07:53)
[2020-10-18] MEDS: FUROSEMIDE 40 MG/4 ML INJ (LASIX) IVP SCH (08:06)
[2020-10-18] MEDS: PANTOPRAZOLE 40 MG (PROTONIX) VIAL IV SCH (08:06)
--- NOTE | 2020-10-18 08:38 | Diagnostic Imaging Report ---
EXAMINATION: Chest radiograph, portable AP view. DATE: 10/18/2020 4:09 AM INDICATION: 45-year-old male, shortness of breath. Respiratory failure. COMPARISON: October 17, 2020. FINDINGS: The endotracheal tube is approximately 7 cm above the marizol. The nasogastric tube tip is near the level of the pylorus. Heart size and mediastinal contours are unchanged. There is no identified pneumothorax or large pleural effusion. There is grossly unchanged multifocal bilateral lung consolidation. IMPRESSION: 1. Grossly unchanged multifocal bilateral lung consolidation. 2. Support lines and tubes as above. Dictated by: Dictated on workstation # [id number]
[2020-10-18 09:13] VITALS: BP 95/68
[2020-10-18 14:33] VITALS: BP 113/82
--- NOTE | 2020-10-18 15:20 | Tele-ICU Progress Note ---
Subjective Date Seen by a Provider: Oct 18, 2020 Time Seen by a Provider: 15:20 Sepsis Event Evaluation Height, Weight, BMI Height: 5'7.00" Weight: 250lbs. 0oz. 113.458811cm; 40.69 BMI Method:Stated Exam Exam Patient acknowledged, consented, and participated in this virtual visit which was conducted using real time audio/video Vital Signs Date Time Temp Pulse Resp B/P (MAP) Pulse Ox O2 Delivery O2 Flow Rate FiO2 10/18/20 14:33 70 20 94 40 10/18/20 14:00 38.1 74 23 108/78 91 Mechanical Ventilator 35.00 10/18/20 13:00 78 10/18/20 13:00 38.0 79 20 104/78 92 Mechanical Ventilator 35.00 10/18/20 12:00 94 Mechanical Ventilator 45 10/18/20 12:00 38.3 81 20 106/74 92 Mechanical Ventilator 35.00 10/18/20 11:14 87 103/74 10/18/20 11:14 88 10/18/20 11:00 38.3 93 20 103/74 91 Mechanical Ventilator 35.00 10/18/20 09:56 38.5 98 20 100/72 92 Mechanical Ventilator 35.00 10/18/20 09:13 82 20 94 45 10/18/20 09:00 38.5 76 20 105/75 93 Mechanical Ventilator 40.00 10/18/20 08:01 94 Mechanical Ventilator 45 10/18/20 07:58 38.6 71 20 107/66 93 Mechanical Ventilator 40.00 10/18/20 07:11 71 20 94 45 10/18/20 07:00 73 10/18/20 07:00 38.6 73 20 90/68 91 Mechanical Ventilator 45.00 10/18/20 06:00 38.6 74 20 105/67 93 Mechanical Ventilator 45.00 10/18/20 05:00 38.1 79 20 105/73 93 Mechanical Ventilator 45.00 10/18/20 04:39 38.4 10/18/20 04:09 38.3 10/18/20 04:00 38.1 85 20 106/72 94 Mechanical Ventilator 45.00 10/18/20 04:00 94 Mechanical Ventilator 45 10/18/20 03:00 38.1 77 20 103/71 93 Mechanical Ventilator 45.00 10/18/20 02:43 72 20 92 45 10/18/20 02:37 70 10/18/20 02:37 114/71 10/18/20 02:00 38.1 75 20 109/71 92 Mechanical Ventilator 45.00 10/18/20 01:00 80 10/18/20 01:00 38.1 75 20 110/70 92 Mechanical Ventilator 45.00 10/18/20 00:00 38.1 76 20 108/72 92 Mechanical Ventilator 45.00 10/18/20 00:00 92 Mechanical Ventilator 45 10/17/20 23:00 38.1 75 20 110/71 92 Mechanical Ventilator 45.00 10/17/20 22:21 75 20 92 45 10/17/20 22:00 38.1 74 20 112/71 92 Mechanical Ventilator 45.00 10/17/20 21:00 38.1 74 20 114/72 92 Mechanical Ventilator 45.00 10/17/20 20:00 92 Mechanical Ventilator 45 10/17/20 20:00 38.0 76 20 110/69 92 Mechanical Ventilator 45.00 10/17/20 19:00 80 10/17/20 19:00 37.9 79 20 110/68 92 Mechanical Ventilator 45.00 10/17/20 18:51 73 20 92 45 10/17/20 18:06 75 112/68 10/17/20 18:02 75 20 112/68 10/17/20 18:00 38.1 75 20 112/68 92 Mechanical Ventilator 45.00 10/17/20 17:00 38.0 76 20 112/70 91 Mechanical Ventilator 45.00 10/17/20 16:00 91 Mechanical Ventilator 45 10/17/20 16:00 37.9 78 20 114/73 92 Mechanical Ventilator 45.00 I & O 10/18/20 07:00 Intake Total 1710 ml Output Total 6625 ml Balance -4915 ml Height & Weight Height: 5'7.00" Weight: 250lbs. 0oz. 113.493753kr; 40.69 BMI Method:Stated General Appearance: No Apparent Distress, WD/WN, Chronically ill, Obese, Other (Sedated and intubated) HEENT: Other (Sedated and endotracheal tube in place) Neck: Full Range of Motion, Normal Inspection, Non Tender, Supple, Carotid Bruit Respiratory: Crackles, Decreased Breath Sounds Cardiovascular: Regular Rate, Rhythm, Bradycardia Capillary Refill: Less Than 3 Seconds Peripheral Pulses: 1+ Dorsalis Pedis (R), 1+ Left Dors-Pedis (L) Gastrointestinal: normal bowel sounds, non tender Extremity: Normal Capillary Refill, Normal Inspection, No Pedal Edema, Other (right arm PICC, site look ok) Skin: Normal Color, Warm/Dry Lymphatic: No Adenopathy Results Lab Laboratory Tests 10/17/20 03:08 10/18/20 03:45 Assessment/Plan Assessment/Plan Tele-ICU Physician , Progress Note ) Available chart/ vitals / labs / Images reviewed Video assessment done using teleICU camera, rest of exam as per RN Discussed with RN , EXAM PER RN = course breath sounds, edema Events overnight : FEBRILE 38.4 I/O = neg 5L Drips: ns 20 Pressors: , hemodynamically stable Sedation gtt: ( RASS -3) versed 10, precedex 1 , fentanyl 200 off sedation - moves all EXTR follow commands VENT SETTINGS and ABG reviewed Consultants: Hospital course: 10/06 - ARF /intubated in other facility COVID , , Pfizer x1 09/23 , symptoms 09/28 , Dx 09/28 10/08 - transferred , AC 20 450 +12 100% PAP 30 , plateau 17 10/09 - AC 20 450 +12 90% PAP 28 , plateau 17 10/10-AC 20 450 +12 100 % PAP 32 10/13 -AC 20 450 +12 85 % PAP 32 10/16- AC 20 450 +14 75 % PAP 32 10/17 - 45% 10/18 - Consultants: VENT SETTINGS. ABG reviewed A/P AHRF / ARDS due to severe COVID19 - intubated 10/06, now AC 20 450 +14 45 % PAP 32 - ( proned 60% -prone position daily 16 h - needs more seation with proning S/P DIURESEIS - 5 L out - will start to titrate peep today NO PRONING< WILL ASSESS FOR SBT TOMORROW [id number]-2/COVID-19 PNA (Pfizer x1 09/23 , symptoms 09/28 , Dx 09/28 ) -Steroids IV - started 10/08 -Hypercoagulable state , DDIMER 0.6 on 10/08 -> lovenox ppx dose FEVER - probably due to COVID Suspected superimposed bact PNA pct -empiric abx started on 10/08, cefepime / doxy - FINISHED course - ACEVEDO RECULTURED 10/13 Less likely non-infection etiology - 10/14 cheched TSH , lipase and LFT ( CRP will not be helpfull - Yeast in sputum - less likely true pathogen , antifungal started 10/15 Hyperglycemia / newly Dx DM - ISS , close f/up on steroids Hyper TGL emia -TGL 280 on admission to this facility ) - propofol used prn increaded agitation - ativan , versed Anemia - delutional , no bleeding Lines : RIGHT PICC 10/08 , (Central Line Necessity Reviewed) Chapman: 10/06 OG: + Nutrition: start 10/09 - REGLAN to try 10/13 Analgesia: Anxiety/ delirium VTE Prophylaxis: nancy 40 q 12 Stress Ulcer Prophylaxis: PPI Glycemic Control: + Plans in collaboration with bedside consultants and IM MDs. Discussed with RN to reach out if any questions or concerns A total of 40 minutes of critical care time was devoted to this patient today, required to treat and/or prevent further deterioration of critical care condition ( as above ) . WENDIE THOMASON MD Oct 18, 2020 15:20
[2020-10-18 18:37] VITALS: BP 108/77
[2020-10-18 22:07] VITALS: BP 102/73
[2020-10-19 01:42] VITALS: BP 104/74
[2020-10-19] MEDS: RT-ALBUTEROL/IPRATROPIUM 3 ML (DUONEB) VIAL INH SCH ×6 (01:42→22:19)
[2020-10-19 03:58] LABS: BASOPHILS % (AUTO) 0 % (0-10); EOSINOPHILS # (AUTO) 0.1 10^3/uL (0.0-0.3); EOSINOPHILS % (AUTO) 1 % (0-10); HEMATOCRIT 37 % (40-54); LYMPHOCYTES # (AUTO) 2.9 10^3/uL (1.0-4.0); LYMPHOCYTES % (AUTO) 27 % (12-44); MEAN CORPUSCULAR HEMOGLOBIN 27 pg (25-34); MEAN CORPUSCULAR HGB CONC 30 g/dL (32-36); MEAN CORPUSCULAR VOLUME 91 fL (80-99); MEAN PLATELET VOLUME 10.8 fL (9.0-12.2); MONOCYTES # (AUTO) 0.6 10^3/uL (0.0-1.0); MONOCYTES % (AUTO) 6 % (0-12); NEUTROPHILS % (AUTO) 66 % (42-75); PLATELET COUNT 261 10^3/uL (130-400); WHITE BLOOD COUNT 10.7 10^3/uL (4.3-11.0)
[2020-10-19] MEDS: DexMEDEtomidine 250 ML DRIP 250 ML IV SCH ×3 (03:59→17:51)
[2020-10-19 04:05] LABS: ABG BASE EXCESS 5.5 MMOL/L (-2.5-2.5); ABG OXYGEN SATURATION 93 % (94-100); ABG PCO2 53 MMHG (35-45); ABG PH 7.38 (7.37-7.43); ABG PO2 70 MMHG (79-93); ABG TCO2 31.9 MMOL/L (21.0-31.0)
[2020-10-19 04:09] LABS: ALLENS TEST YES-POS; INSPIRED O2 40%; PATIENT TEMP 37.5; VENTILATOR YES
[2020-10-19 04:14] LABS: ALBUMIN 2.8 GM/DL (3.2-4.5); POTASSIUM 3.4 MMOL/L (3.6-5.0)
[2020-10-19 04:17] LABS: TOTAL PROTEIN 6.2 GM/DL (6.4-8.2)
[2020-10-19 04:18] LABS: BILIRUBIN,TOTAL 0.7 MG/DL (0.1-1.0)
[2020-10-19 04:20] LABS: CREATININE SERUM 0.67 MG/DL (0.60-1.30); PHOSPHORUS 3.7 MG/DL (2.3-4.7)
[2020-10-19 04:23] LABS: MAGNESIUM 1.9 MG/DL (1.6-2.4)
[2020-10-19] MEDS: LORazepam INJECTION FOR DRIP 20 MG in D5W 100 ML IVPB 90 ML IV SCH ×2 (05:13→16:13)
[2020-10-19] MEDS: MAGNESIUM 1 GM/100 ML IVPB 100 ML IV SCH (05:14)
[2020-10-19] MEDS: inSUlin ASPART (NovoLOG) 1 UNIT/0.01 ML (CHARGE PER UNIT) SC SCH ×4 (05:14→23:54)
[2020-10-19] MEDS: KCL 20 MEQ TAB (K-DUR) PO SCH (05:14)
[2020-10-19] MEDS: POTASSIUM CL 10MEQ/50ML IVPB 50 ML IV SCH ×3 (05:17→06:59)
[2020-10-19] MEDS: LEVOTHYROXINE 100 MCG INJ (SYNTHROID) VIAL IV SCH (06:06)
--- NOTE | 2020-10-19 07:30 | Diagnostic Imaging Report ---
INDICATION: Respiratory failure Frontal chest obtained at 0305 a.m. and compared to previous day. ET tube and right-sided PICC line are unchanged. NG tube is unchanged. There is no change in extensive bilateral infiltrates compatible with pneumonia. There is no pneumothorax or gross pleural fluid. IMPRESSION: No change in significant bilateral infiltrates compared to the prior study. Life support lines are stable. Dictated by: Dictated on workstation # [id number]
[2020-10-19 07:37] VITALS: BP 104/74
--- NOTE | 2020-10-19 08:22 | Progress Note ---
Subjective Date Seen by a Provider: Oct 19, 2020 Time Seen by a Provider: 12:30 Subjective/Events-last exam Patient stable FiO2 45% PEEP of 12 Fever continuous Prognosis guarded Objective Exam Last Set of Vital Signs Vital Signs Date Time Temp Pulse Resp B/P (MAP) Pulse Ox O2 Delivery O2 Flow Rate FiO2 10/19/20 08:00 86 20 100/65 92 Mechanical Ventilator 35.00 10/19/20 07:37 35 10/19/20 06:00 37.7 Capillary Refill : Less Than 3 Seconds I&O Intake and Output 10/19/20 00:00 Intake Total 2040 ml Output Total 3600 ml Balance -1560 ml Intake Oral 0 ml IV Total 1100 ml Tube Feeding 640 ml Other 300 ml Output Urine Total 3600 ml General: Other (Sedated and intubated) Lungs: Other (Crackles and wheezes) Heart: Regular Rate Results Lab Laboratory Tests 10/18/20 11:41: Glucometer 248H 10/18/20 17:30: Glucometer 245H 10/18/20 23:12: Glucometer 189H 10/19/20 03:37: White Blood Count 10.7, Red Blood Count 4.07L, Hemoglobin 11.0L, Hematocrit 37L, Mean Corpuscular Volume 91, Mean Corpuscular Hemoglobin 27, Mean Corpuscular Hemoglobin Concent 30L, Red Cell Distribution Width 14.4, Platelet Count 261, Mean Platelet Volume 10.8, Immature Granulocyte % (Auto) 1, Neutrophils (%) (Auto) 66, Lymphocytes (%) (Auto) 27, Monocytes (%) (Auto) 6, Eosinophils (%) ( Auto) 1, Basophils (%) (Auto) 0, Neutrophils # (Auto) 7.0, Lymphocytes # (Auto) 2.9, Monocytes # (Auto) 0.6, Eosinophils # (Auto) 0.1, Basophils # (Auto) 0.0, Immature Granulocyte # (Auto) 0.1, Sodium Level 141, Potassium Level 3.4L, C hloride Level 106, Carbon Dioxide Level 26, Anion Gap 9, Blood Urea Nitrogen 22H , Creatinine 0.67, Estimat Glomerular Filtration Rate 129, BUN/Creatinine Ratio 33, Glucose Level 188H, Calcium Level 8.0L, Corrected Calcium 9.0, Phosphorus Level 3.7, Magnesium Level 1.9, Total Bilirubin 0.7, Aspartate Amino Transf (AST/SGOT) 19, Alanine Aminotransferase (ALT/SGPT) 31, Alkaline Phosphatase 62, Total Protein 6.2L, Albumin 2.8L 10/19/20 03:48: Blood Gas Puncture Site RIGHT RADIAL, Blood Gas Patient Temperature 37.5, Arterial Blood pH 7.38, Arterial Blood Partial Pressure CO2 53H, Arterial Blood Partial Pressure O2 70L, Arterial Blood HCO3 30H, Arterial Blood Total CO2 31.9H , Arterial Blood Oxygen Saturation 93L, Arterial Blood Base Excess 5.5H, Casper Test YES-POS, Blood Gas Ventilator Setting YES, Blood Gas Inspired Oxygen 40% Microbiology 10/13/20 Gram Stain - Final, Complete 10/13/20 Sputum Culture - Final, Complete YEAST 10/13/20 Blood Culture - Final, Complete No growth Assessment/Plan Assessment/Plan Assess & Plan/Chief Complaint Assessment: Acute hypoxic respiratory failure COVID-19 pneumonia Ventilator dependence day #12 Presumed obstructive sleep apnea New onset diabetes hemoglobin A1c 9.0 Oral tobacco user Plan: Maintain intubation Appreciate eICU Supportive care 10/19/2020: Maintain intubation Prognosis guarded Diagnosis/Problems Diagnosis/Problems (1) COVID-19 Status: Acute MIKAELA LAYNE DO Oct 19, 2020 08:22
[2020-10-19] MEDS: PANTOPRAZOLE 40 MG (PROTONIX) VIAL IV SCH (08:38)
[2020-10-19] MEDS: LACRI-LUBE OPTHALMIC OINT 3.5 GM TUBE OU SCH ×2 (08:38→21:45)
[2020-10-19] MEDS: FUROSEMIDE 40 MG/4 ML INJ (LASIX) IVP SCH (08:38)
[2020-10-19] MEDS: ANIDULAFUNGIN INJECTION 100 MG in NS (IVPB) 100 ML IV SCH (08:38)
--- NOTE | 2020-10-19 08:56 | Tele-ICU Progress Note ---
Subjective Date Seen by a Provider: Oct 19, 2020 Time Seen by a Provider: 08:55 Subjective/Events-last exam This patient admitted with Covidpneumonia and intubated on 10/06/2020 in another facility and transferred her here. Currently resting well on mechanical ventilation. She is on 45% with acute PEEP of 12. Urine output is good on blood pressures stable she is given Lasix earlier today.. Video visit made and D/W cookie padder of Systems ROS per attending physician Sepsis Event Evaluation Height, Weight, BMI Height: 5'7.00" Weight: 250lbs. 0oz. 113.039916eg; 40.69 BMI Method:Stated Exam Exam Patient acknowledged, consented, and participated in this virtual visit which was conducted using real time audio/video Vital Signs Date Time Temp Pulse Resp B/P (MAP) Pulse Ox O2 Delivery O2 Flow Rate FiO2 10/19/20 08:00 86 20 100/65 92 Mechanical Ventilator 35.00 10/19/20 07:37 70 20 94 35 10/19/20 07:00 90 10/19/20 07:00 85 20 102/70 94 Mechanical Ventilator 35.00 10/19/20 06:23 96 Mechanical Ventilator 35.00 10/19/20 06:00 37.7 74 20 108/67 95 Mechanical Ventilator 40.00 10/19/20 05:00 78 20 95 10/19/20 05:00 37.5 73 20 98/61 96 Mechanical Ventilator 40.00 10/19/20 04:00 37.5 82 20 101/61 92 Mechanical Ventilator 40.00 10/19/20 03:59 82 94/65 10/19/20 03:53 93 Mechanical Ventilator 40 10/19/20 03:00 37.7 76 20 102/83 94 Mechanical Ventilator 40.00 10/19/20 02:00 37.8 75 20 106/73 94 Mechanical Ventilator 40.00 10/19/20 01:42 70 20 94 40 10/19/20 01:00 70 10/19/20 01:00 37.7 66 20 102/72 94 Mechanical Ventilator 40.00 10/19/20 00:00 37.8 71 20 102/75 94 Mechanical Ventilator 40.00 10/18/20 23:36 37.7 10/18/20 23:30 94 Mechanical Ventilator 40 10/18/20 23:00 37.7 70 22 102/72 93 Mechanical Ventilator 40.00 10/18/20 22:07 67 20 94 40 10/18/20 22:00 37.8 66 21 102/73 94 Mechanical Ventilator 40.00 10/18/20 21:00 37.9 68 20 105/76 94 Mechanical Ventilator 40.00 10/18/20 20:33 Mechanical Ventilator 40.00 10/18/20 20:32 70 104/75 10/18/20 20:00 38.0 75 20 108/73 94 Mechanical Ventilator 35.00 10/18/20 19:50 94 Mechanical Ventilator 40 10/18/20 19:00 38.0 77 20 106/72 94 Mechanical Ventilator 35.00 10/18/20 19:00 74 10/18/20 18:37 70 20 94 40 10/18/20 18:00 38.2 74 20 108/74 94 Mechanical Ventilator 35.00 10/18/20 17:00 38.2 75 20 105/76 94 Mechanical Ventilator 35.00 10/18/20 16:00 38.2 79 20 102/74 94 Mechanical Ventilator 35.00 10/18/20 16:00 94 Mechanical Ventilator 45 10/18/20 15:42 80 106/78 10/18/20 15:00 38.2 80 20 106/73 94 Mechanical Ventilator 35.00 10/18/20 14:33 70 20 94 40 10/18/20 14:00 38.1 74 23 108/78 91 Mechanical Ventilator 35.00 10/18/20 13:00 78 10/18/20 13:00 38.0 79 20 104/78 92 Mechanical Ventilator 35.00 10/18/20 12:00 94 Mechanical Ventilator 45 10/18/20 12:00 38.3 81 20 106/74 92 Mechanical Ventilator 35.00 10/18/20 11:14 87 103/74 10/18/20 11:14 88 10/18/20 11:00 38.3 93 20 103/74 91 Mechanical Ventilator 35.00 10/18/20 09:56 38.5 98 20 100/72 92 Mechanical Ventilator 35.00 10/18/20 09:13 82 20 94 45 10/18/20 09:00 38.5 76 20 105/75 93 Mechanical Ventilator 40.00 I & O 10/19/20 07:00 Intake Total 1240 ml Output Total 3475 ml Balance -2235 ml Height & Weight Height: 5'7.00" Weight: 250lbs. 0oz. 113.271985do; 40.69 BMI Method:Stated General Appearance: No Apparent Distress, WD/WN, Chronically ill, Obese, Other (Sedated and intubated) HEENT: Other (Sedated and endotracheal tube in place) Neck: Full Range of Motion, Normal Inspection, Non Tender, Supple, Carotid Bruit Respiratory: Crackles, Decreased Breath Sounds Cardiovascular: Regular Rate, Rhythm, Bradycardia Capillary Refill: Less Than 3 Seconds Peripheral Pulses: 1+ Dorsalis Pedis (R), 1+ Left Dors-Pedis (L) Gastrointestinal: normal bowel sounds, non tender Extremity: Normal Capillary Refill, Normal Inspection, No Pedal Edema, Other (right arm PICC, site look ok) Skin: Normal Color, Warm/Dry Lymphatic: No Adenopathy Other comments PE per RN Results Lab Laboratory Tests 10/18/20 03:45 10/19/20 03:37 Meds reviewed Radiology cxr reviewed Assessment/Plan Assessment/Plan 1. Covid19 pneumonia 2. Acute hypoxic respiratory failure requiring mechanical ventilation 3. Suspected superimposed bacterial pneumonia 4. Hyperglycemia with newly diagnosed ~diabetes 5. Hypertriglyceridemia Recommendations 1. Continue current mechanical ventilatory setting and decrease FiO2 as tolerated. Once the FiO2 comes down to 35% or less will consider weaning of PEEP. 2. DVT prophylaxis and ulcer prophylaxis. 3. Insulin with sliding scale coverage. 4. We will continue monitor her triglyceride level and the use of propofol sparingly for sedation and use benzodiazepines Predominantly Critical Care: Critically Ill Patient Time spent with patient (mins): 35 OCTAVIA KNOX MD Oct 19, 2020 08:56
[2020-10-19] MEDS: ACETAMINOPHEN 325 MG TABLET PO PRN ×2 (11:03→19:50)
[2020-10-19] MEDS: fentaNYL DRIP PRE-MIX 250 ML IV SCH ×2 (11:04→23:47)
[2020-10-19 11:22] VITALS: BP 99/64
[2020-10-19] MEDS: NS IV 1000 ML 1,000 ML IV SCH (12:00)
[2020-10-19] MEDS: ENOXAPARIN 40 MG/0.4 ML (LOVENOX) SYR SC SCH ×2 (13:07→23:50)
[2020-10-19 16:02] VITALS: BP 105/71
[2020-10-19 18:47] VITALS: BP 105/71
[2020-10-19] MEDS ORDERED: VANCOMYCIN INJECTION 1,000 MG in NS (IVPB) 250 ML IV ONE (21:45)
--- NOTE | 2020-10-19 21:47 | Tele-ICU Progress Note ---
Progress Note Called by the nurse with Pt spiking temp 1032/103. Chart reviewed. 1. Procal, LA and Blood and UA/Cultures reflex orderd. Last Abx 10/08. Ordered Vanc and cefepime. De-escalate if cultures negative. Antifungals started - nited. d/w the nurse . PICC placed on 10/08. Interventions Major-Sepsis - evaluation and management Focused Exam Height, Weight, BMI Height: 5'7.00" Weight: 250lbs. 0oz. 113.185875rv; 40.69 BMI Method:Stated EVELYN MUELLER MD Oct 19, 2020 21:47
[2020-10-19] MEDS ORDERED: CEFEPIME INJECTION 1,000 MG in WATER (STERILE) FOR INJECTION 10 ML IV ONE (22:00)
[2020-10-19 22:19] VITALS: BP 91/67
[2020-10-19 23:26] LABS: BILIRUBIN,URINE NEGATIVE (NEGATIVE); CLARITY,URINE CLOUDY; COLOR,URINE RED; GLUCOSE, URINE (UA) TRACE (NEGATIVE); KETONES,URINE 1+ (NEGATIVE); LEUKOCYTE ESTERASE ,URINE 2+ (NEGATIVE); NITRITE,URINE POSITIVE (NEGATIVE); PROTEIN,URINE 3+ (NEGATIVE)
[2020-10-19 23:42] LABS: RBC,URINE TNTC /HPF
[2020-10-19 23:43] LABS: BACTERIA,URINE NEGATIVE /HPF; WBC,URINE RARE /HPF
[2020-10-19] MEDS: MIDAZOLAM DRIP PRE-MIX 100 ML IV SCH (23:47)
[2020-10-20] MEDS: LORazepam INJECTION FOR DRIP 20 MG in D5W 100 ML IVPB 90 ML IV SCH ×3 (01:42→16:11)
[2020-10-20] MEDS: DexMEDEtomidine 250 ML DRIP 250 ML IV SCH ×3 (01:43→16:18)
[2020-10-20 02:28] VITALS: BP 92/62
[2020-10-20] MEDS: RT-ALBUTEROL/IPRATROPIUM 3 ML (DUONEB) VIAL INH SCH ×6 (02:28→22:49)
[2020-10-20 03:26] LABS: ABG BASE EXCESS 5.8 MMOL/L (-2.5-2.5); ABG OXYGEN SATURATION 95 % (94-100); ABG PCO2 48 MMHG (35-45); ABG PH 7.42 (7.37-7.43); ABG PO2 71 MMHG (79-93); ABG TCO2 31.7 MMOL/L (21.0-31.0)
[2020-10-20 03:29] LABS: BASOPHILS % (AUTO) 0 % (0-10); EOSINOPHILS # (AUTO) 0.1 10^3/uL (0.0-0.3); EOSINOPHILS % (AUTO) 1 % (0-10); HEMATOCRIT 37 % (40-54); HEMOGLOBIN 11.1 g/dL (13.3-17.7); LYMPHOCYTES # (AUTO) 1.7 10^3/uL (1.0-4.0); LYMPHOCYTES % (AUTO) 23 % (12-44); MEAN CORPUSCULAR HEMOGLOBIN 27 pg (25-34); MEAN CORPUSCULAR HGB CONC 30 g/dL (32-36); MEAN CORPUSCULAR VOLUME 90 fL (80-99); MEAN PLATELET VOLUME 11.4 fL (9.0-12.2); MONOCYTES # (AUTO) 0.5 10^3/uL (0.0-1.0); MONOCYTES % (AUTO) 6 % (0-12); NEUTROPHILS % (AUTO) 69 % (42-75); PLATELET COUNT 245 10^3/uL (130-400); WHITE BLOOD COUNT 7.3 10^3/uL (4.3-11.0)
[2020-10-20 03:34] LABS: ALLENS TEST YES-POS; INSPIRED O2 40%; VENTILATOR YES
[2020-10-20 03:40] LABS: ALBUMIN 3.1 GM/DL (3.2-4.5); POTASSIUM 3.7 MMOL/L (3.6-5.0)
[2020-10-20 03:41] LABS: CALCIUM 9.1 MG/DL (8.5-10.1)
[2020-10-20 03:42] LABS: TOTAL PROTEIN 6.9 GM/DL (6.4-8.2)
[2020-10-20 03:44] LABS: BILIRUBIN,TOTAL 0.7 MG/DL (0.1-1.0)
[2020-10-20 03:46] LABS: CREATININE SERUM 0.7 MG/DL (0.60-1.30); PHOSPHORUS 3.1 MG/DL (2.3-4.7)
[2020-10-20 03:49] LABS: MAGNESIUM 2.1 MG/DL (1.6-2.4)
[2020-10-20] MEDS: POTASSIUM CL 10MEQ/50ML IVPB 50 ML IV SCH (03:57)
[2020-10-20] MEDS: MAGNESIUM 1 GM/100 ML IVPB 100 ML IV SCH (03:58)
[2020-10-20] MEDS: KCL 20 MEQ TAB (K-DUR) PO SCH (03:58)
[2020-10-20] MEDS: inSUlin ASPART (NovoLOG) 1 UNIT/0.01 ML (CHARGE PER UNIT) SC SCH ×3 (05:13→17:39)
--- NOTE | 2020-10-20 07:13 | Progress Note ---
Subjective Date Seen by a Provider: Oct 20, 2020 Time Seen by a Provider: 11:00 Subjective/Events-last exam Patient still intubated Sliding scale c changed from a Holding Lovenox again due to hematuria Vancomycin and cefepime maintained and now afebrile so we will continue that Eraxis maintained We will update Focused Exam Lactate Level 10/19/20 22:55: Lactic Acid Level 1.02 Objective Exam Last Set of Vital Signs Vital Signs Date Time Temp Pulse Resp B/P (MAP) Pulse Ox O2 Delivery O2 Flow Rate FiO2 10/20/20 06:00 36.9 75 20 96/66 91 Mechanical Ventilator 40.00 10/20/20 04:00 45 Capillary Refill : Less Than 3 Seconds I&O Intake and Output 10/20/20 00:00 Intake Total 1960 ml Output Total 3375 ml Balance -1415 ml Intake Oral 0 ml IV Total 980 ml Tube Feeding 680 ml Other 300 ml Output Urine Total 3375 ml General: Other (Intubated and sedated) Lungs: Clear to Auscultation, Normal Air Movement Results Lab Laboratory Tests 10/19/20 12:00: Glucometer 303H 10/19/20 17:42: Glucometer 245H 10/19/20 19:46: Glucometer 208H 10/19/20 22:10: Urine Color REDH, Urine Clarity CLOUDY, Urine pH 5.0, Urine Specific [place] 1.020, Urine Protein 3+H, Urine Glucose (UA) TRACEH, Urine Ketones 1+H, Urine Nitrite POSITIVEH, Urine Bilirubin NEGATIVE, Urine Urobilinogen 4.0, Urine Leukocyte Esterase 2+H, Urine RBC (Auto) 3+H, Urine RBC TNTCH, Urine WBC RARE, Urine Crystals NONE, Urine Bacteria NEGATIVE, Urine Casts NONE, Urine Mucus NEGATIVE, Urine Culture Indicated NO 10/19/20 22:55: Lactic Acid Level 1.02, Procalcitonin 0.07 10/19/20 23:45: Glucometer 239H 10/20/20 03:00: White Blood Count 7.3, Red Blood Count 4.09L, Hemoglobin 11.1L, Hematocrit 37L, Mean Corpuscular Volume 90, Mean Corpuscular Hemoglobin 27, Mean Corpuscular Hemoglobin Concent 30L, Red Cell Distribution Width 14.3, Platelet Count 245, Mean Platelet Volume 11.4, Immature Granulocyte % (Auto) 1, Neutrophils (%) (Auto) 69, Lymphocytes (%) (Auto) 23, Monocytes (%) (Auto) 6, Eosinophils (%) (Auto) 1, Basophils (%) (Auto) 0, Neutrophils # (Auto) 5.0, Lymphocytes # (Auto) 1.7, Monocytes # (Auto) 0.5, Eosinophils # (Auto) 0.1, Basophils # (Auto) 0.0, Immature Granulocyte # (Auto) 0.0, Blood Gas Puncture Site LEFT RADIAL, Blood Gas Patient Temperature 37.0, Arterial Blood pH 7.42, Arterial Blood Partial Pressure CO2 48H, Arterial Blood Partial Pressure O2 71L, Arterial Blood HCO3 30H, Arterial Blood Total CO2 31.7H, Arterial Blood Oxygen Saturation 95, Arterial Blood Base Excess 5.8H, Casper Test YES-POS, Blood Gas Ventilator Setting YES, Blood Gas Inspired Oxygen 40%, Sodium Level 138, Potassium Level 3.7, Chloride Level 102, Carbon Dioxide Level 28, Anion Gap 8, Blood Urea Nitrogen 22H, Creatinine 0.70, Estimat Glomerular Filtration Rate 123, BUN/Cr eatinine Ratio 31, Glucose Level 266H, Calcium Level 9.1, Corrected Calcium 9.8, Phosphorus Level 3.1, Magnesium Level 2.1, Total Bilirubin 0.7, Aspartate Amino Transf (AST/SGOT) 23, Alanine Aminotransferase (ALT/SGPT) 37, Alkaline Marge sphatase 91, Total Protein 6.9, Albumin 3.1L Microbiology 10/13/20 Gram Stain - Final, Complete 10/13/20 Sputum Culture - Final, Complete YEAST 10/13/20 Blood Culture - Final, Complete No growth Assessment/Plan Assessment/Plan Assess & Plan/Chief Complaint Assessment: Acute hypoxic respiratory failure COVID-19 pneumonia Ventilator dependence day #12 Presumed obstructive sleep apnea New onset diabetes hemoglobin A1c 9.0 Oral tobacco user Plan: Maintain intubation Appreciate eICU Supportive care 10/19/2020: Maintain intubation Prognosis guarded 10/20/2020: Updated and had 15-minute conversation Hesitantly optimistic Trach will be in order will talk to pulmonology tomorrow Diagnosis/Problems Diagnosis/Problems (1) COVID-19 Status: Acute MIKAELA LAYNE DO Oct 20, 2020 07:13
--- NOTE | 2020-10-20 07:30 | Occ Therapy Progress Note ---
Therapy Progress Note Pt is currently intubated/sedated. OT will continue to monitor pt status and initiate treatment when pt is medically stable and able to actively participate in skilled therapy. ALEXANDRU HELMS OT Oct 20, 2020 07:30
[2020-10-20 07:48] VITALS: BP 105/57
--- NOTE | 2020-10-20 07:52 | Physical Therapy Progress Note ---
Therapy Progress Note Patient currently sedated and intubated. PT will continue to follow patient status and initiate treatment when patient is medically stable and able to actively participate with skilled therapy. ANTHONY CORNEJO PT Oct 20, 2020 07:52
--- NOTE | 2020-10-20 08:16 | Tele-ICU Progress Note ---
Subjective Date Seen by a Provider: Oct 20, 2020 Time Seen by a Provider: 08:11 Subjective/Events-last exam last night pt had fever and started on vanc and cefpime. hemodynamically stable. repeat c/s done Review of Systems ROS per attending physician Sepsis Event Evaluation Height, Weight, BMI Height: 5'7.00" Weight: 250lbs. 0oz. 113.831407la; 40.69 BMI Method:Stated Focused Exam Lactate Level 10/19/20 22:55: Lactic Acid Level 1.02 Exam Exam Patient acknowledged, consented, and participated in this virtual visit which was conducted using real time audio/video Vital Signs Date Time Temp Pulse Resp B/P (MAP) Pulse Ox O2 Delivery O2 Flow Rate FiO2 10/20/20 07:48 66 23 92 40 10/20/20 07:00 68 10/20/20 06:00 36.9 75 20 96/66 91 Mechanical Ventilator 40.00 10/20/20 05:00 36.8 62 20 94/67 95 Mechanical Ventilator 40.00 10/20/20 05:00 73 20 92 10/20/20 04:00 36.9 63 20 93/63 94 Mechanical Ventilator 40.00 10/20/20 04:00 94 Mechanical Ventilator 45 10/20/20 03:00 37.0 74 20 94/59 94 Mechanical Ventilator 40.00 10/20/20 02:28 61 20 95 40 10/20/20 02:00 37.3 68 20 94/60 95 Mechanical Ventilator 40.00 10/20/20 01:43 79 91/67 10/20/20 01:00 37.5 69 20 92/65 95 Mechanical Ventilator 40.00 10/20/20 01:00 69 10/20/20 00:00 37.8 74 20 89/64 94 Mechanical Ventilator 40.00 10/19/20 23:59 94 Mechanical Ventilator 45 10/19/20 23:47 79 20 91/67 10/19/20 23:00 38.3 82 20 100/67 95 Mechanical Ventilator 40.00 10/19/20 22:19 79 20 95 40 10/19/20 22:00 38.8 78 20 92/64 95 Mechanical Ventilator 40.00 10/19/20 21:00 38.9 81 20 89/57 95 Mechanical Ventilator 40.00 10/19/20 20:20 38.9 10/19/20 20:00 94 Mechanical Ventilator 45 10/19/20 20:00 38.9 87 20 94/66 91 Mechanical Ventilator 40.00 10/19/20 19:50 38.9 10/19/20 19:48 38.9 89 20 96/62 94 Mechanical Ventilator 40.00 10/19/20 19:00 38.9 93 20 95/65 94 Mechanical Ventilator 45.00 10/19/20 19:00 93 10/19/20 18:47 80 21 95 40 10/19/20 18:00 38.8 83 20 95/63 93 Mechanical Ventilator 45.00 10/19/20 17:51 84 102/72 10/19/20 17:00 38.7 84 20 102/69 93 Mechanical Ventilator 45.00 10/19/20 16:30 93 Mechanical Ventilator 45 10/19/20 16:02 80 21 94 40 10/19/20 16:00 38.7 80 21 105/71 95 Mechanical Ventilator 45.00 10/19/20 15:00 38.8 81 20 103/70 95 Mechanical Ventilator 45.00 10/19/20 14:00 39.0 91 21 98/65 94 Mechanical Ventilator 45.00 10/19/20 13:00 101 10/19/20 13:00 39.4 104 9 106/58 94 Mechanical Ventilator 45.00 10/19/20 12:30 93 Mechanical Ventilator 45 10/19/20 12:00 39.4 10/19/20 12:00 39.4 103 24 100/65 93 Mechanical Ventilator 45.00 10/19/20 11:22 101 23 91 45 10/19/20 11:03 39.4 10/19/20 11:03 93 96/91 10/19/20 11:00 39.4 93 21 99/64 93 Mechanical Ventilator 45.00 10/19/20 10:00 39.0 91 20 103/66 91 Mechanical Ventilator 45.00 10/19/20 09:29 Mechanical Ventilator 45.00 10/19/20 09:00 38.7 84 23 107/71 90 Mechanical Ventilator 35.00 10/19/20 08:30 93 Mechanical Ventilator 45 I & O 10/20/20 07:00 Intake Total 1950 ml Output Total 3375 ml Balance -1425 ml Height & Weight Height: 5'7.00" Weight: 250lbs. 0oz. 113.952078op; 40.69 BMI Method:Stated General Appearance: No Apparent Distress, WD/WN, Chronically ill, Obese, Other (Sedated and intubated) HEENT: Other (Sedated and endotracheal tube in place) Neck: Full Range of Motion, Normal Inspection, Non Tender, Supple, Carotid Bruit Respiratory: Crackles, Decreased Breath Sounds, Other (INTUBATED, ON VENT) Cardiovascular: Regular Rate, Rhythm, Bradycardia Capillary Refill: Less Than 3 Seconds Peripheral Pulses: 1+ Dorsalis Pedis (R), 1+ Left Dors-Pedis (L) Gastrointestinal: normal bowel sounds, non tender Extremity: Normal Capillary Refill, Normal Inspection, No Pedal Edema, Other (right arm PICC, site look ok) Skin: Normal Color, Warm/Dry Lymphatic: No Adenopathy Other comments PE PER ATTENDING PHYSICIAN Results Lab Laboratory Tests 10/19/20 03:37 10/20/20 03:00 Meds REVIEWED Radiology CXR REVIEWED Assessment/Plan Assessment/Plan 1. Covid19 pneumonia 2. Acute hypoxic respiratory failure requiring mechanical ventilation 3. Suspected superimposed bacterial pneumonia recurrent 4. Hyperglycemia with newly diagnosed ~diabetes 5. Hypertriglyceridemia Recommendations 1. Continue current mechanical ventilatory setting and decrease FiO2 as tolerated. Once the FiO2 comes down to 35% or less will consider weaning of PEEP. 2. DVT prophylaxis and ulcer prophylaxis. 3. Insulin with sliding scale coverage. 4. We will continue monitor her triglyceride level and the use of propofol sparingly for sedation and use benzodiazepines Predominant 5. continue vanc and cefpime. monitor c/s and deescalate abx's if c/s are negative Critical Care: Critically Ill Patient Time spent with patient (mins): 35 OCTAVIA KNOX MD Oct 20, 2020 08:16
[2020-10-20] MEDS: LEVOTHYROXINE 100 MCG INJ (SYNTHROID) VIAL IV SCH (08:41)
[2020-10-20] MEDS: FUROSEMIDE 40 MG/4 ML INJ (LASIX) IVP SCH (08:45)
[2020-10-20] MEDS: PANTOPRAZOLE 40 MG (PROTONIX) VIAL IV SCH (08:45)
[2020-10-20] MEDS: ANIDULAFUNGIN INJECTION 100 MG in NS (IVPB) 100 ML IV SCH (08:45)
[2020-10-20] MEDS: ACETAMINOPHEN 325 MG TABLET PO PRN (08:46)
[2020-10-20] MEDS: NS IV 1000 ML 1,000 ML IV SCH (08:47)
[2020-10-20] MEDS: LACRI-LUBE OPTHALMIC OINT 3.5 GM TUBE OU SCH ×2 (08:47→20:25)
[2020-10-20] MEDS: ENOXAPARIN 40 MG/0.4 ML (LOVENOX) SYR SC SCH (13:41)
[2020-10-20] MEDS: fentaNYL DRIP PRE-MIX 250 ML IV SCH (13:44)
[2020-10-20 15:20] VITALS: BP 138/68
[2020-10-20 15:25] VITALS: BP 98/67
[2020-10-20] MEDS ORDERED: VANCOMYCIN 2000 MG/NS 500 ML IVPB IV NR ×4 (17:00→21:00)
[2020-10-20] MEDS: CEFEPIME INJECTION 1,000 MG in WATER (STERILE) FOR INJECTION 10 ML IV SCH (17:39)
[2020-10-20 18:27] VITALS: BP 95/68
[2020-10-20] MEDS ORDERED: VANCOMYCIN INJECTION 0.1 MG in NS (IVPB) 250 ML IV SCH (21:00)
[2020-10-20 22:50] VITALS: BP 90/64
[2020-10-21] VITALS (8 sets, daily range): BP systolic 93–120; BP diastolic 59–78
[2020-10-21] MEDS: CEFEPIME INJECTION 1,000 MG in WATER (STERILE) FOR INJECTION 10 ML IV SCH ×5 (00:15→23:53)
[2020-10-21] MEDS: ENOXAPARIN 40 MG/0.4 ML (LOVENOX) SYR SC SCH ×3 (00:15→23:54)
[2020-10-21] MEDS: inSUlin ASPART (NovoLOG) 1 UNIT/0.01 ML (CHARGE PER UNIT) SC SCH ×4 (00:21→17:47)
[2020-10-21] MEDS: DexMEDEtomidine 250 ML DRIP 250 ML IV SCH ×3 (00:21→17:47)
[2020-10-21] MEDS: fentaNYL DRIP PRE-MIX 250 ML IV SCH ×2 (00:22→14:01)
[2020-10-21] MEDS: RT-ALBUTEROL/IPRATROPIUM 3 ML (DUONEB) VIAL INH SCH ×6 (02:29→22:32)
[2020-10-21] MEDS: MAGNESIUM 1 GM/100 ML IVPB 100 ML IV SCH (03:06)
[2020-10-21] MEDS: POTASSIUM CL 10MEQ/50ML IVPB 50 ML IV SCH (03:06)
[2020-10-21] MEDS: KCL 20 MEQ TAB (K-DUR) PO SCH (03:07)
[2020-10-21 04:29] LABS: ABG BASE EXCESS 5.7 MMOL/L (-2.5-2.5); ABG OXYGEN SATURATION 96 % (94-100); ABG PCO2 49 MMHG (35-45); ABG PH 7.41 (7.37-7.43); ABG PO2 80 MMHG (79-93); ABG TCO2 31.8 MMOL/L (21.0-31.0)
[2020-10-21 04:32] LABS: ALLENS TEST YES-POS; INSPIRED O2 60%; VENTILATOR YES
[2020-10-21 04:32] LABS: BASOPHILS % (AUTO) 0 % (0-10); EOSINOPHILS # (AUTO) 0.2 10^3/uL (0.0-0.3); EOSINOPHILS % (AUTO) 3 % (0-10); HEMATOCRIT 35 % (40-54); HEMOGLOBIN 10.7 g/dL (13.3-17.7); LYMPHOCYTES # (AUTO) 0.9 10^3/uL (1.0-4.0); LYMPHOCYTES % (AUTO) 15 % (12-44); MEAN CORPUSCULAR HEMOGLOBIN 27 pg (25-34); MEAN CORPUSCULAR HGB CONC 30 g/dL (32-36); MEAN CORPUSCULAR VOLUME 90 fL (80-99); MONOCYTES # (AUTO) 0.3 10^3/uL (0.0-1.0); MONOCYTES % (AUTO) 5 % (0-12); NEUTROPHILS # (AUTO) 4.8 10^3/uL (1.8-7.8); NEUTROPHILS % (AUTO) 77 % (42-75); PLATELET COUNT 219 10^3/uL (130-400); WHITE BLOOD COUNT 6.2 10^3/uL (4.3-11.0)
[2020-10-21 04:50] LABS: CALCIUM 9.3 MG/DL (8.5-10.1)
[2020-10-21 04:51] LABS: TOTAL PROTEIN 6.7 GM/DL (6.4-8.2)
[2020-10-21 04:53] LABS: BILIRUBIN,TOTAL 0.4 MG/DL (0.1-1.0)
[2020-10-21 04:55] LABS: CREATININE SERUM 0.63 MG/DL (0.60-1.30); EOSINOPHILS % (MANUAL) 1 %; LYMPHOCYTES % (MANUAL) 9 %; MONOCYTES % (MANUAL) 6 %; NEUTROPHILS % (MANUAL) 84 %; RBC MORPH NORMAL
[2020-10-21 04:57] LABS: MAGNESIUM 2.1 MG/DL (1.6-2.4)
[2020-10-21] MEDS ORDERED: VANCOMYCIN 1,750 MG/NS 500 ML IVPB IV SCH ×2 (05:00)
[2020-10-21] MEDS: NS IV 1000 ML 1,000 ML IV SCH (05:25)
[2020-10-21] MEDS: MIDAZOLAM DRIP PRE-MIX 100 ML IV SCH (05:26)
[2020-10-21] MEDS: LORazepam INJECTION FOR DRIP 20 MG in D5W 100 ML IVPB 90 ML IV SCH ×2 (05:56→17:17)
--- NOTE | 2020-10-21 07:01 | Occ Therapy Progress Note ---
Therapy Progress Note Pt is currently intubated. OT will continue to monitor pt status and initiate treatment when pt is medically stable and able to actively participate in skilled therapy. LAURA JACKSON Oct 21, 2020 07:01
--- NOTE | 2020-10-21 07:40 | Diagnostic Imaging Report ---
EXAMINATION: Chest radiograph, portable AP view. DATE: 10/21/2020 4:48 AM INDICATION: 45-year-old male, shortness of breath. Evaluation for pneumonia. COMPARISON: October 19, 2020. FINDINGS: There is unchanged extensive multifocal bilateral lung consolidation. The nasogastric tube is in the distal stomach. The endotracheal tube is below the thoracic inlet and above the marizol. Right-sided PICC line extends at least to the level of the SVC. Lung volumes are somewhat low. IMPRESSION: 1. Unchanged low lung volumes and extensive multifocal bilateral lung consolidation. 2. Support lines and tubes as above. Dictated by: Dictated on workstation # [id number]
--- NOTE | 2020-10-21 07:49 | Physical Therapy Progress Note ---
Therapy Progress Note Patient currently sedated and intubated. PT will continue to follow patient status and initiate treatment when patient is medically stable and able to actively participate with skilled therapy. ANTHONY CORNEJO PT Oct 21, 2020 07:49
[2020-10-21] MEDS: LEVOTHYROXINE 100 MCG INJ (SYNTHROID) VIAL IV SCH (08:41)
[2020-10-21] MEDS: ANIDULAFUNGIN INJECTION 100 MG in NS (IVPB) 100 ML IV SCH (08:41)
[2020-10-21] MEDS: PANTOPRAZOLE 40 MG (PROTONIX) VIAL IV SCH (08:42)
[2020-10-21] MEDS: LACRI-LUBE OPTHALMIC OINT 3.5 GM TUBE OU SCH ×2 (08:42→20:15)
[2020-10-21] MEDS: VANCOMYCIN 1,750 MG/NS 500 ML IVPB IV SCH ×4 (08:42→20:15)
[2020-10-21] MEDS: FUROSEMIDE 40 MG/4 ML INJ (LASIX) IVP SCH (08:42)
--- NOTE | 2020-10-21 10:46 | Tele-ICU Progress Note ---
Subjective Date Seen by a Provider: Oct 21, 2020 Time Seen by a Provider: 10:45 Sepsis Event Evaluation Height, Weight, BMI Height: 5'7.00" Weight: 250lbs. 0oz. 113.303423wa; 40.69 BMI Method:Stated Focused Exam Lactate Level 10/19/20 22:55: Lactic Acid Level 1.02 Exam Exam Patient acknowledged, consented, and participated in this virtual visit which was conducted using real time audio/video Vital Signs Date Time Temp Pulse Resp B/P (MAP) Pulse Ox O2 Delivery O2 Flow Rate FiO2 10/21/20 08:45 63 10/21/20 08:00 36.5 10/21/20 08:00 95 Mechanical Ventilator 50 10/21/20 07:30 55 21 93 50 10/21/20 07:00 67 10/21/20 06:00 37.0 65 20 108/67 92 Mechanical Ventilator 50.00 10/21/20 05:52 Mechanical Ventilator 50.00 10/21/20 05:26 72 20 104/66 10/21/20 05:00 66 22 93 10/21/20 05:00 37.1 65 20 102/57 94 Mechanical Ventilator 60.00 10/21/20 04:15 Mechanical Ventilator 60.00 10/21/20 04:00 92 Mechanical Ventilator 60 10/21/20 04:00 37.0 72 20 104/66 94 Mechanical Ventilator 60.00 10/21/20 03:00 36.9 61 20 97/59 94 Mechanical Ventilator 60.00 10/21/20 02:30 65 21 94 60 10/21/20 02:00 36.9 63 20 96/63 93 Mechanical Ventilator 60.00 10/21/20 01:00 66 10/21/20 01:00 36.9 64 20 95/61 93 Mechanical Ventilator 60.00 10/21/20 00:21 57 90/64 10/21/20 00:00 36.9 68 20 95/60 94 Mechanical Ventilator 60.00 10/20/20 23:59 92 Mechanical Ventilator 60 10/20/20 23:00 36.9 68 20 94/60 93 Mechanical Ventilator 60.00 10/20/20 22:50 57 20 93 60 10/20/20 22:00 37.1 62 20 93/62 93 Mechanical Ventilator 60.00 10/20/20 21:00 37.2 70 20 94/60 93 Mechanical Ventilator 60.00 10/20/20 20:00 37.2 71 20 97/67 93 Mechanical Ventilator 60.00 10/20/20 20:00 93 Mechanical Ventilator 60 10/20/20 19:00 74 10/20/20 19:00 37.2 74 20 100/68 92 Mechanical Ventilator 60.00 10/20/20 18:27 65 20 92 60 10/20/20 18:00 37.2 69 20 96/67 91 Mechanical Ventilator 40.00 10/20/20 17:00 37.2 66 20 94/64 92 Mechanical Ventilator 40.00 10/20/20 16:18 99/53 10/20/20 16:00 37.1 75 20 93/65 92 Mechanical Ventilator 40.00 10/20/20 15:33 94 Mechanical Ventilator 45 10/20/20 15:25 66 20 90 45 10/20/20 15:20 82 22 93 50 10/20/20 15:00 37.1 71 20 96/67 89 Mechanical Ventilator 40.00 10/20/20 14:00 37.1 65 20 95/67 90 Mechanical Ventilator 40.00 10/20/20 13:00 37.1 61 20 93/69 90 Mechanical Ventilator 40.00 10/20/20 13:00 66 10/20/20 12:00 37.0 70 20 92/63 92 Mechanical Ventilator 40.00 10/20/20 12:00 94 Mechanical Ventilator 45 10/20/20 11:00 37.1 77 20 92/59 92 Mechanical Ventilator 40.00 I & O 10/21/20 07:00 Intake Total 1500 ml Output Total 2900 ml Balance -1400 ml Height & Weight Height: 5'7.00" Weight: 250lbs. 0oz. 113.738818lb; 40.69 BMI Method:Stated General Appearance: No Apparent Distress, WD/WN, Chronically ill, Obese, Other (Sedated and intubated) HEENT: Other (Sedated and endotracheal tube in place) Neck: Full Range of Motion, Normal Inspection, Non Tender, Supple, Carotid Bruit Respiratory: Crackles, Decreased Breath Sounds, Other (INTUBATED, ON VENT) Cardiovascular: Regular Rate, Rhythm, Bradycardia Capillary Refill: Less Than 3 Seconds Peripheral Pulses: 1+ Dorsalis Pedis (R), 1+ Left Dors-Pedis (L) Gastrointestinal: normal bowel sounds, non tender Extremity: Normal Capillary Refill, Normal Inspection, No Pedal Edema, Other (right arm PICC, site look ok) Skin: Normal Color, Warm/Dry Lymphatic: No Adenopathy Results Lab Laboratory Tests 10/20/20 03:00 10/21/20 04:10 Assessment/Plan Assessment/Plan Tele-ICU Physician , Progress Note ) Available chart/ vitals / labs / Images reviewed Video assessment done using teleICU camera, rest of exam as per RN Discussed with RN , EXAM PER RN = course breath sounds, edema Events overnight : FEBRILE 37 I/O = neg 1.7 l Drips: ns 20 Pressors: , hemodynamically stable Sedation gtt: ( RASS -3) versed 10, precedex 1 , fentanyl 200 off sedation - moves all EXTR follow commands VENT SETTINGS and ABG reviewed Hospital course: 10/06 - ARF /intubated in other facility COVID , , Pfizer x1 09/23 , symptoms 09/28 , Dx 09/28 10/08 - transferred , AC 20 450 +12 100% PAP 30 , plateau 17 10/09 - AC 20 450 +12 90% PAP 28 , plateau 17 10/10-AC 20 450 +12 100 % PAP 32 10/13 -AC 20 450 +12 85 % PAP 32 10/16- AC 20 450 +14 75 % PAP 32 10/17 - 45% 10/19 - fever and started on vanc and cefpime 10/21- 50% +8 SBP Consultants: A/P AHRF / ARDS due to severe COVID19 - intubated 10/06, now AC 20 450 +8 50 % PAP 25 - stoped prone position -candidate for SBT today NO Contraindications: Cardiovascular Stability / Sedation Score / FI02/PEEP / ABG / CXR IWNZ-Lyujownflnn-6/COVID-19 PNA (Pfizer x1 09/23 , symptoms 09/28 , Dx 09/28 ) -Steroids IV - started 10/08 -Hypercoagulable state , DDIMER 0.6 on 10/08 -> lovenox ppx dose FEVER - probably due to COVID Suspected superimposed bact PNA pct -empiric abx started on 10/08, cefepime / doxy - FINISHED course - ACEVEDO RECULTURED 10/13 Less likely non-infection etiology - 10/14 cheched TSH , lipase and LFT ( CRP will not be helpfull - Yeast in sputum - less likely true pathogen , antifungal started 10/15 10/19 -fever and started on vanc and cefpime Hyperglycemia / newly Dx DM - ISS , close f/up on steroids Hyper TGL emia -TGL 280 on admission to this facility ) - propofol used prn increaded agitation - ativan , versed Anemia - delutional , no bleeding Lines : RIGHT PICC 10/08 , (Central Line Necessity Reviewed) Chapman: 10/06 OG: + Nutrition: start 10/09 - REGLAN to try 10/13 Analgesia: Anxiety/ delirium VTE Prophylaxis: nancy 40 q 12 Stress Ulcer Prophylaxis: PPI Glycemic Control: + Plans in collaboration with bedside consultants and IM MDs. Discussed with RN to reach out if any questions or concerns A total of 40 minutes of critical care time was devoted to this patient today, required to treat and/or prevent further deterioration of critical care condition ( as above ) . WENDIE THOMASON MD Oct 21, 2020 10:46
--- NOTE | 2020-10-21 12:53 | Progress Note ---
SPENCER RICHAR[employer]ON MED STUDENT 10/21/20 1253: Subjective Date Seen by a Provider: Oct 21, 2020 Time Seen by a Provider: 08:20 Subjective/Events-last exam Pollo is intubated and sedated but requiring less PEEP. TV 450 / PEEP 5 / FiO2 50% / RR 20. Focused Exam Lactate Level 10/19/20 22:55: Lactic Acid Level 1.02 Objective Exam Last Set of Vital Signs Vital Signs Date Time Temp Pulse Resp B/P (MAP) Pulse Ox O2 Delivery O2 Flow Rate FiO2 10/21/20 11:34 76 22 90 55 10/21/20 11:00 36.9 126/100 Mechanical Ventilator 50.00 Capillary Refill : Less Than 3 Seconds I&O Intake and Output 10/21/20 00:00 Intake Total 1340 ml Output Total 3050 ml Balance -1710 ml Intake Oral 0 ml Tube Feeding 1040 ml Other 300 ml Output Urine Total 3050 ml General: Other (sedated, intubaded. ) HEENT: Atraumatic, Mucous Memb Moist/[place] Lungs: Clear to Auscultation, Other (on ventilator. Lung sounds mildly diminished all lobes but clear without crackles or rales) Abdomen: Soft, No Tenderness Extremities: Other (bilateral LE edema) Skin: No Rashes, No Significant Lesion Neuro: Other (intubated, sedated.) Results Lab Laboratory Tests 10/20/20 17:32: Glucometer 267H 10/20/20 20:22: Glucometer 255H 10/21/20 00:12: Glucometer 228H 10/21/20 04:10: White Blood Count 6.2, Red Blood Count 3.90L, Hemoglobin 10.7L, Hematocrit 35L, Mean Corpuscular Volume 90, Mean Corpuscular Hemoglobin 27, Mean Corpuscular Hemoglobin Concent 30L, Red Cell Distribution Width 14.6H, Platelet Count 219, Mean Platelet Volume 11.0, Immature Granulocyte % (Auto) 1, Neutrophils (%) (Auto) 77H, Lymphocytes (%) (Auto) 15, Monocytes (%) (Auto) 5, Eosinophils (%) (Auto) 3, Basophils (%) (Auto) 0, Neutrophils # (Auto) 4.8, Lymphocytes # (Auto) 0.9L, Monocytes # (Auto) 0.3, Eosinophils # (Auto) 0.2, Basophils # (Auto) 0.0, Immature Granulocyte # (Auto) 0.0, Neutrophils % (Manual) 84, Lymphocytes % (Manual) 9, Monocytes % (Manual) 6, Eosinophils % (Manual) 1, Blood Morphology Comment NORMAL, Sodium Level 140, Potassium Level 4.0, Chloride Level 103, Carbon Dioxide Level 29, Anion Gap 8, Blood Urea Nitrogen 18, Creatinine 0.63, Estimat Glomerular Filtration Rate 138, BUN/Creatinine Ratio 29, Glucose Level 240H, Calcium Level 9.3, Corrected Calcium 10.1, Phosphorus Level 3.0, Magnesium Level 2.1, Total Bilirubin 0.4, Aspartate Amino Transf (AST/SGOT) 25, Alanine Aminotransferase (ALT/SGPT) 37, Alkaline Phosphatase 80, Total Protein 6.7, Albumin 3.0L, Triglycerides Level 178H 10/21/20 04:15: Blood Gas Puncture Site LEFT RADIAL, Blood Gas Patient Temperature 37.0, Arterial Blood pH 7.41, Arterial Blood Partial Pressure CO2 49H, Arterial Blood Partial Pressure O2 80, Arterial Blood HCO3 30H, Arterial Blood Total CO2 31.8H, Arterial Blood Oxygen Saturation 96, Arterial Blood Base Excess 5.7H, Casper Test YES-POS, Blood Gas Ventilator Setting YES, Blood Gas Inspired Oxygen 60% 10/21/20 11:46: Glucometer 201H Microbiology 10/19/20 Blood Culture - Preliminary, Resulted No growth 10/13/20 Gram Stain - Final, Complete 10/13/20 Sputum Culture - Final, Complete YEAST Assessment/Plan Assessment/Plan Assess & Plan/Chief Complaint COVID-19 pneumonia -intubated. TV 450 / PEEP 5 / FiO2 50% / RR 20 -talk to eICU regarding trial weaning of vent today Cefepime, Vancomycin + continue Anidulafungin for yeast in sputum culture. DM2 continue glycemic control DVT/PE prophylaxis CYNTHIA LAYNE DO 10/22/20 0539: Subjective Subjective/Events-last exam Pt doing pretty well Is able to wake up and communicate with his eyes Jake Adams his PEEP of 5 currently Weaning trial failed but he is doing a lot better Review of Systems General: Fatigue, Malaise Objective Exam General: Alert, Oriented X3, Other (Able to nod answers to questions) Lungs: Clear to Auscultation Heart: Regular Rate Assessment/Plan Assessment/Plan Assess & Plan/Chief Complaint Supportive care Wean Supervisory-Addendum Brief Verification & Attestation Participated in pt care: history, MDM, physical Personally performed: exam, history, MDM, supervision of care Care discussed with: Medical Student Procedures: n/a Results interpretation: Verified all documentation Verification and Attestation of Medical Student E/M Service A medical student performed and documented this service in my presence. I reviewed and verified all information documented by the medical student and made modifications to such information, when appropriate. I personally performed the physical exam and medical decision making. Cynthia Layne, Oct 22, 2020,05:38 [employer]ER [employer]ICH[employer]ON MED STUDENT Oct 21, 2020 12:53 CYNTHIA LAYNE DO Oct 22, 2020 05:39
[2020-10-22] MEDS: MIDAZOLAM DRIP PRE-MIX 100 ML IV SCH ×2 (00:01→12:07)
[2020-10-22] MEDS: inSUlin ASPART (NovoLOG) 1 UNIT/0.01 ML (CHARGE PER UNIT) SC SCH ×4 (00:58→17:58)
[2020-10-22] MEDS: fentaNYL DRIP PRE-MIX 250 ML IV SCH ×3 (01:41→23:22)
[2020-10-22] MEDS: LORazepam INJECTION FOR DRIP 20 MG in D5W 100 ML IVPB 90 ML IV SCH ×3 (01:42→23:24)
[2020-10-22] MEDS: DexMEDEtomidine 250 ML DRIP 250 ML IV SCH ×3 (01:42→17:52)
[2020-10-22] MEDS: RT-ALBUTEROL/IPRATROPIUM 3 ML (DUONEB) VIAL INH SCH ×6 (02:27→22:15)
[2020-10-22 02:28] VITALS: BP 106/76
[2020-10-22 04:29] LABS: BASOPHILS % (AUTO) 0 % (0-10); EOSINOPHILS # (AUTO) 0.2 10^3/uL (0.0-0.3); EOSINOPHILS % (AUTO) 4 % (0-10); HEMATOCRIT 37 % (40-54); LYMPHOCYTES # (AUTO) 1.3 10^3/uL (1.0-4.0); LYMPHOCYTES % (AUTO) 28 % (12-44); MEAN CORPUSCULAR HEMOGLOBIN 27 pg (25-34); MEAN CORPUSCULAR HGB CONC 30 g/dL (32-36); MEAN CORPUSCULAR VOLUME 90 fL (80-99); MEAN PLATELET VOLUME 11.3 fL (9.0-12.2); MONOCYTES # (AUTO) 0.3 10^3/uL (0.0-1.0); MONOCYTES % (AUTO) 6 % (0-12); NEUTROPHILS % (AUTO) 61 % (42-75); PLATELET COUNT 201 10^3/uL (130-400); WHITE BLOOD COUNT 4.9 10^3/uL (4.3-11.0)
[2020-10-22 04:43] LABS: CALCIUM 9.2 MG/DL (8.5-10.1)
[2020-10-22 04:44] LABS: TOTAL PROTEIN 6.7 GM/DL (6.4-8.2)
[2020-10-22 04:46] LABS: BILIRUBIN,TOTAL 0.5 MG/DL (0.1-1.0)
[2020-10-22 04:48] LABS: CREATININE SERUM 0.67 MG/DL (0.60-1.30)
[2020-10-22 04:51] LABS: MAGNESIUM 1.9 MG/DL (1.6-2.4)
[2020-10-22] MEDS: POTASSIUM CL 10MEQ/50ML IVPB 50 ML IV SCH (04:51)
[2020-10-22] MEDS: MAGNESIUM 1 GM/100 ML IVPB 100 ML IV SCH (04:52)
[2020-10-22] MEDS: KCL 20 MEQ TAB (K-DUR) PO SCH (04:52)
[2020-10-22] MEDS: LEVOTHYROXINE 100 MCG INJ (SYNTHROID) VIAL IV SCH (05:59)
[2020-10-22] MEDS: CEFEPIME INJECTION 1,000 MG in WATER (STERILE) FOR INJECTION 10 ML IV SCH ×4 (05:59→23:21)
[2020-10-22 06:28] LABS: ABG BASE EXCESS 6.3 MMOL/L (-2.5-2.5); ABG OXYGEN SATURATION 94 % (94-100); ABG PCO2 43 MMHG (35-45); ABG PH 7.46 (7.37-7.43); ABG PO2 69 MMHG (79-93); ABG TCO2 31.5 MMOL/L (21.0-31.0)
[2020-10-22 06:29] LABS: ALLENS TEST YES-POS; PATIENT TEMP 37.3; VENTILATOR YES
[2020-10-22 07:37] VITALS: BP 117/76
--- NOTE | 2020-10-22 07:57 | Physical Therapy Progress Note ---
Therapy Progress Note Patient currently sedated and intubated. PT will continue to follow patient status and initiate treatment when patient is medically stable and able to actively participate with skilled therapy. ANTHONY CORNEJO PT Oct 22, 2020 07:57
[2020-10-22] MEDS ORDERED: TROUGH ORDER-PHARMACY XX NR (08:00)
[2020-10-22] MEDS: PANTOPRAZOLE 40 MG (PROTONIX) VIAL IV SCH (08:42)
[2020-10-22] MEDS: FUROSEMIDE 40 MG/4 ML INJ (LASIX) IVP SCH (08:43)
[2020-10-22] MEDS: LACRI-LUBE OPTHALMIC OINT 3.5 GM TUBE OU SCH ×2 (08:43→20:31)
[2020-10-22] MEDS: NS IV 1000 ML 1,000 ML IV SCH (08:43)
[2020-10-22] MEDS: ACETAMINOPHEN 325 MG TABLET PO PRN (08:43)
[2020-10-22] MEDS: ANIDULAFUNGIN INJECTION 100 MG in NS (IVPB) 100 ML IV SCH (08:43)
--- NOTE | 2020-10-22 09:21 | Diagnostic Imaging Report ---
INDICATION: OG tube placement. TECHNIQUE/COMPARISON: A frontal chest was obtained at 9:13 AM and compared with yesterday. FINDINGS: The ET tube tip overlies the mid trachea. An OG tube is seen with the tip overlying the mid stomach. Extensive bilateral infiltrates are again noted. There is no pneumothorax or pleural fluid. The right-sided PICC line is unchanged. IMPRESSION: The extensive bilateral infiltrates are stable. Life support lines as described above. Dictated by: Dictated on workstation # [id number]
[2020-10-22] MEDS: VANCOMYCIN 1,750 MG/NS 500 ML IVPB IV SCH ×2 (09:45)
[2020-10-22] MEDS ORDERED: VANCOMYCIN INJECTION 2,000 MG in NS IV 500 ML 500 ML IV SCH (10:00)
[2020-10-22 10:16] VITALS: BP 109/74
[2020-10-22] MEDS: inSUlin (REGULAR) HUMAN 1 UNIT/0.01 ML (CHARGE PER UNIT) SC SCH ×4 (10:30→23:22)
--- NOTE | 2020-10-22 12:39 | Progress Note ---
SPENCER RICHARDSON MED STUDENT 10/22/20 1239: Subjective Date Seen by a Provider: Oct 22, 2020 Time Seen by a Provider: 07:35 Subjective/Events-last exam Pollo is intubated although he was able to open his eyes. Vent settings TV 450 / PEEP 8 / 50% O2 / RR 20. Focused Exam Lactate Level 10/19/20 22:55: Lactic Acid Level 1.02 Objective Exam Last Set of Vital Signs Vital Signs Date Time Temp Pulse Resp B/P (MAP) Pulse Ox O2 Delivery O2 Flow Rate FiO2 10/22/20 12:07 108/74 10/22/20 10:16 77 20 94 45 10/22/20 09:00 37.7 Mechanical Ventilator 50.00 Capillary Refill : Less Than 3 Seconds I&O Intake and Output 10/22/20 00:00 Intake Total 2027.5 ml Output Total 3375 ml Balance -1347.5 ml Intake Oral 0 ml IV Total 527.5 ml Tube Feeding 1200 ml Other 300 ml Output Urine Total 3375 ml General: Alert, Other (intubated, on ventilator. Occasionally opens eyes and l ooks at sd. Chapman catheter in place.) HEENT: EOMI Lungs: Clear to Auscultation, Other (decreased breath sounds without crackles, rales, wheezing) Heart: Regular Rate, No Murmurs Skin: No Rashes (no rashes to chest, abdomen, legs, arms) Results Lab Laboratory Tests 10/21/20 17:26: Glucometer 208H 10/21/20 23:34: Glucometer 191H 10/22/20 04:05: White Blood Count 4.9, Red Blood Count 4.08L, Hemoglobin 11.0L, Hematocrit 37L, Mean Corpuscular Volume 90, Mean Corpuscular Hemoglobin 27, Mean Corpuscular Hemoglobin Concent 30L, Red Cell Distribution Width 14.3, Platelet Count 201, Mean Platelet Volume 11.3, Immature Granulocyte % (Auto) 1, Neutrophils (%) (Auto) 61, Lymphocytes (%) (Auto) 28, Monocytes (%) (Auto) 6, Eosinophils (%) (Auto) 4, Basophils (%) (Auto) 0, Neutrophils # (Auto) 3.0, Lymphocytes # (Auto) 1.3, Monocytes # (Auto) 0.3, Eosinophils # (Auto) 0.2, Basophils # (Auto) 0.0, Immature Granulocyte # (Auto) 0.0, Sodium Level 141, Potassium Level 4.0, Chloride Level 104, Carbon Dioxide Level 27, Anion Gap 10, Blood Urea Nitrogen 14, Creatinine 0.67, Estimat Glomerular Filtration Rate 129, BUN/Creatinine Ratio 21, Glucose Level 234H, Calcium Level 9.2, Corrected Calcium 10.0, Phosphorus Level 3.0, Magnesium Level 1.9, Total Bilirubin 0.5, Aspartate Amino Transf (AST/SGOT) 24, Alanine Aminotransferase (ALT/SGPT) 33, Alkaline Phosphatase 80, Total Protein 6.7, Albumin 3.0L 10/22/20 06:15: Blood Gas Puncture Site RIGHT RADIAL, Blood Gas Patient Temperature 37.3, Arterial Blood pH 7.46H, Arterial Blood Partial Pressure CO2 43, Arterial Blood Partial Pressure O2 69L, Arterial Blood HCO3 30H, Arterial Blood Total CO2 31.5H , Arterial Blood Oxygen Saturation 94, Arterial Blood Base Excess 6.3H, Casper Test YES-POS, Blood Gas Ventilator Setting YES, Blood Gas Inspired Oxygen 55% 10/22/20 08:15: Vancomycin Level Trough 11.6 10/22/20 11:59: Glucometer 188H Microbiology 10/19/20 Blood Culture - Preliminary, Resulted No growth 10/13/20 Gram Stain - Final, Complete 10/13/20 Sputum Culture - Final, Complete YEAST Assessment/Plan Assessment/Plan Assess & Plan/Chief Complaint COVID-19 pneumonia -intubated. TV 450 / PEEP 8 / FiO2 50% / RR 20 -failed weaning off the vent yesterday. Will look into transfer to [facility] as patient is stable. Will need a trach soon to protect vocal capabilities Cefepime, Vancomycin + continue Anidulafungin for yeast in sputum culture. DM2 -add regular insulin with persistently high BS continue glycemic control DVT/PE prophylaxis CYNTHIA LAYNE DO 10/23/20 0513: Subjective Subjective/Events-last exam Pt tiring out Will need trach and PEG OG tube was replaced, he did have some aspiration like tube-feedings in his mouth when nurse arrived this morning OG tube replaced and CXR confirmed placement Objective Exam General: Other (Sedated and intubated) Lungs: Clear to Auscultation Heart: Regular Rate Assessment/Plan Assessment/Plan Assess & Plan/Chief Complaint Supportive care Needs trach and PEG in [place] Supervisory-Addendum Brief Verification & Attestation Participated in pt care: history, MDM, physical Personally performed: exam, history, MDM, supervision of care Care discussed with: Medical Student Procedures: n/a Results interpretation: Verified all documentation Verification and Attestation of Medical Student E/M Service A medical student performed and documented this service in my presence. I reviewed and verified all information documented by the medical student and made modifications to such information, when appropriate. I personally performed the physical exam and medical decision making. Cynthia Layne, Oct 23, 2020,05:12 [employer] MED STUDENT Oct 22, 2020 12:39 CYNTHIA LAYNE DO Oct 23, 2020 05:13
[2020-10-22] MEDS: ENOXAPARIN 40 MG/0.4 ML (LOVENOX) SYR SC SCH ×2 (13:11→23:22)
[2020-10-22 14:09] VITALS: BP 127/86
[2020-10-22 18:47] VITALS: BP 100/75
[2020-10-22] MEDS: VANCOMYCIN INJECTION 2,000 MG in NS IV 500 ML 500 ML IV SCH (20:30)
[2020-10-22 22:15] VITALS: BP 111/75
[2020-10-23] MEDS: DexMEDEtomidine 250 ML DRIP 250 ML IV SCH ×3 (01:26→23:25)
[2020-10-23] MEDS: inSUlin ASPART (NovoLOG) 1 UNIT/0.01 ML (CHARGE PER UNIT) SC SCH ×4 (01:26→17:29)
[2020-10-23] MEDS: MIDAZOLAM DRIP PRE-MIX 100 ML IV SCH (01:28)
[2020-10-23 02:30] VITALS: BP 126/81
[2020-10-23] MEDS: RT-ALBUTEROL/IPRATROPIUM 3 ML (DUONEB) VIAL INH SCH ×5 (02:30→22:42)
[2020-10-23 03:17] LABS: BASOPHILS % (AUTO) 1 % (0-10); EOSINOPHILS # (AUTO) 0.1 10^3/uL (0.0-0.3); EOSINOPHILS % (AUTO) 4 % (0-10); HEMATOCRIT 30 % (40-54); HEMOGLOBIN 9.1 g/dL (13.3-17.7); LYMPHOCYTES # (AUTO) 0.9 10^3/uL (1.0-4.0); LYMPHOCYTES % (AUTO) 27 % (12-44); MEAN CORPUSCULAR HEMOGLOBIN 27 pg (25-34); MEAN CORPUSCULAR HGB CONC 30 g/dL (32-36); MEAN CORPUSCULAR VOLUME 90 fL (80-99); MEAN PLATELET VOLUME 11.2 fL (9.0-12.2); MONOCYTES # (AUTO) 0.3 10^3/uL (0.0-1.0); MONOCYTES % (AUTO) 10 % (0-12); NEUTROPHILS % (AUTO) 58 % (42-75); PLATELET COUNT 177 10^3/uL (130-400); WHITE BLOOD COUNT 3.4 10^3/uL (4.3-11.0)
[2020-10-23 03:27] LABS: ALBUMIN 2.6 GM/DL (3.2-4.5); POTASSIUM 3.4 MMOL/L (3.6-5.0)
[2020-10-23 03:29] LABS: CALCIUM 7.8 MG/DL (8.5-10.1)
[2020-10-23 03:30] LABS: TOTAL PROTEIN 5.6 GM/DL (6.4-8.2)
[2020-10-23 03:31] LABS: BILIRUBIN,TOTAL 0.4 MG/DL (0.1-1.0)
[2020-10-23 03:33] LABS: PHOSPHORUS 2.7 MG/DL (2.3-4.7)
[2020-10-23 03:34] LABS: CREATININE SERUM 0.56 MG/DL (0.60-1.30)
[2020-10-23 03:36] LABS: MAGNESIUM 1.6 MG/DL (1.6-2.4)
[2020-10-23 04:02] LABS: ABG BASE EXCESS 6.1 MMOL/L (-2.5-2.5); ABG OXYGEN SATURATION 99 % (94-100); ABG PCO2 45 MMHG (35-45); ABG PH 7.44 (7.37-7.43); ABG PO2 104 MMHG (79-93); ABG TCO2 31.6 MMOL/L (21.0-31.0); ALLENS TEST POSITIVE; INSPIRED O2 40; VENTILATOR YES
[2020-10-23 04:03] LABS: PATIENT TEMP 37.2
[2020-10-23] MEDS: MAGNESIUM 1 GM/100 ML IVPB 100 ML IV SCH ×3 (04:58→06:30)
[2020-10-23] MEDS: POTASSIUM CL 10MEQ/50ML IVPB 50 ML IV SCH ×3 (04:58→06:30)
[2020-10-23] MEDS: KCL 20 MEQ TAB (K-DUR) PO SCH (04:59)
[2020-10-23] MEDS: CEFEPIME INJECTION 1,000 MG in WATER (STERILE) FOR INJECTION 10 ML IV SCH ×4 (05:16→23:28)
[2020-10-23] MEDS: inSUlin (REGULAR) HUMAN 1 UNIT/0.01 ML (CHARGE PER UNIT) SC SCH ×4 (05:19→23:24)
[2020-10-23] MEDS: LEVOTHYROXINE 100 MCG INJ (SYNTHROID) VIAL IV SCH (06:30)
--- NOTE | 2020-10-23 06:59 | Occ Therapy Progress Note ---
Therapy Progress Note Pt is currently intubated. OT will continue to monitor pt status and initiate treatment when pt is medically stable and able to actively participate in skilled therapy. LAURA JACKSON Oct 23, 2020 06:59
[2020-10-23 07:06] VITALS: BP 113/77
[2020-10-23] MEDS: LORazepam INJECTION FOR DRIP 20 MG in D5W 100 ML IVPB 90 ML IV SCH ×2 (07:30→19:52)
--- NOTE | 2020-10-23 07:53 | Physical Therapy Progress Note ---
Therapy Progress Note Patient currently sedated and intubated. PT will continue to follow patient status and initiate treatment when patient is medically stable and able to actively participate with skilled therapy. ANTHONY CORNEJO PT Oct 23, 2020 07:53
[2020-10-23] MEDS: VANCOMYCIN INJECTION 2,000 MG in NS IV 500 ML 500 ML IV SCH ×2 (08:20→20:40)
[2020-10-23] MEDS: FUROSEMIDE 40 MG/4 ML INJ (LASIX) IVP SCH (08:21)
[2020-10-23] MEDS: PANTOPRAZOLE 40 MG (PROTONIX) VIAL IV SCH (08:21)
[2020-10-23] MEDS: LACRI-LUBE OPTHALMIC OINT 3.5 GM TUBE OU SCH ×2 (08:21→19:52)
[2020-10-23] MEDS: ANIDULAFUNGIN INJECTION 100 MG in NS (IVPB) 100 ML IV SCH (08:21)
--- NOTE | 2020-10-23 09:58 | Tele-ICU Progress Note ---
Subjective Date Seen by a Provider: Oct 22, 2020 Time Seen by a Provider: 12:09 Sepsis Event Evaluation Height, Weight, BMI Height: 5'7.00" Weight: 250lbs. 0oz. 113.990604ft; 40.69 BMI Method:Stated Exam Exam Patient acknowledged, consented, and participated in this virtual visit which was conducted using real time audio/video Vital Signs Date Time Temp Pulse Resp B/P (MAP) Pulse Ox O2 Delivery O2 Flow Rate FiO2 10/23/20 08:20 107/73 10/23/20 08:00 94 Mechanical Ventilator 45 10/23/20 07:06 81 21 93 40 10/23/20 06:00 37.1 81 20 102/72 93 Mechanical Ventilator 45.00 10/23/20 05:25 122 22 90 10/23/20 05:00 37.2 86 20 105/73 95 Mechanical Ventilator 45.00 10/23/20 04:00 93 Mechanical Ventilator 45 10/23/20 04:00 37.2 93 22 115/79 93 Mechanical Ventilator 45.00 10/23/20 03:00 91 Mechanical Ventilator 45.00 10/23/20 03:00 37.1 96 22 106/65 91 Mechanical Ventilator 45.00 10/23/20 02:30 96 22 91 40 10/23/20 02:00 37.1 104 24 134/82 91 Mechanical Ventilator 40.00 10/23/20 01:31 95 Mechanical Ventilator 40.00 10/23/20 01:28 118/73 10/23/20 01:26 118/73 10/23/20 01:00 81 10/23/20 01:00 36.9 81 20 118/73 94 Mechanical Ventilator 45.00 10/23/20 00:00 36.8 86 20 118/73 95 Mechanical Ventilator 45.00 10/22/20 23:57 95 Mechanical Ventilator 45 10/22/20 23:30 97 Mechanical Ventilator 45.00 10/22/20 23:00 36.5 66 20 117/79 96 Mechanical Ventilator 50.00 10/22/20 22:15 68 20 96 50 10/22/20 22:00 36.7 70 20 111/75 96 Mechanical Ventilator 50.00 10/22/20 21:00 37.0 84 20 109/75 95 Mechanical Ventilator 50.00 10/22/20 20:37 36.4 92 Mechanical Ventilator 50.00 10/22/20 20:15 92 Mechanical Ventilator 50 10/22/20 20:00 36.3 83 20 108/74 94 Mechanical Ventilator 50.00 10/22/20 19:00 87 10/22/20 19:00 36.7 87 20 120/80 92 Mechanical Ventilator 50.00 10/22/20 18:47 81 23 94 50 10/22/20 18:00 37.1 85 101/72 94 Mechanical Ventilator 50.00 10/22/20 17:52 100/71 10/22/20 17:00 37.6 99 20 110/75 93 Mechanical Ventilator 50.00 10/22/20 16:00 37.4 118 34 105/76 93 Mechanical Ventilator 50.00 10/22/20 16:00 93 Mechanical Ventilator 50 10/22/20 15:00 36.7 112 134/83 97 Mechanical Ventilator 50.00 10/22/20 14:09 112 25 94 45 10/22/20 14:00 36.4 115 115/77 96 Mechanical Ventilator 50.00 10/22/20 13:00 36.3 59 123/66 95 Mechanical Ventilator 50.00 10/22/20 13:00 57 10/22/20 12:07 108/74 10/22/20 12:00 36.5 64 108/74 95 Mechanical Ventilator 50.00 10/22/20 12:00 92 Mechanical Ventilator 50 10/22/20 11:00 37.0 76 104/73 93 Mechanical Ventilator 50.00 10/22/20 10:16 77 20 94 45 10/22/20 10:08 112/56 10/22/20 10:00 37.4 81 108/79 95 Mechanical Ventilator 50.00 I & O 10/23/20 07:00 Intake Total 2352 ml Output Total 3120 ml Balance -768 ml Height & Weight Height: 5'7.00" Weight: 250lbs. 0oz. 113.523283bn; 40.69 BMI Method:Stated General Appearance: No Apparent Distress, WD/WN, Chronically ill, Obese, Other (Sedated and intubated) HEENT: Other (Sedated and endotracheal tube in place) Neck: Full Range of Motion, Normal Inspection, Non Tender, Supple, Carotid Bruit Respiratory: Crackles, Decreased Breath Sounds, Other (INTUBATED, ON VENT) Cardiovascular: Regular Rate, Rhythm, Bradycardia Capillary Refill: Less Than 3 Seconds Peripheral Pulses: 1+ Dorsalis Pedis (R), 1+ Left Dors-Pedis (L) Gastrointestinal: normal bowel sounds, non tender Extremity: Normal Capillary Refill, Normal Inspection, No Pedal Edema, Other (right arm PICC, site look ok) Skin: Normal Color, Warm/Dry Lymphatic: No Adenopathy Results Lab Laboratory Tests 10/22/20 04:05 10/23/20 03:10 Assessment/Plan Assessment/Plan Tele-ICU Physician , Progress Note ) Available chart/ vitals / labs / Images reviewed Video assessment done using teleICU camera, rest of exam as per RN Discussed with RN , EXAM PER RN = course breath sounds, edema Events overnight : FEBRILE 37 , 7 I/O = neg 1300 Drips: ns 20 Pressors: , hemodynamically stable Sedation gtt: ( RASS -3) versed 10, precedex 1 , fentanyl 200 off sedation - moves all EXTR follow commands VENT SETTINGS and ABG reviewed Hospital course: 10/06 - ARF /intubated in other facility COVID , , Pfizer x1 09/23 , symptoms 09/28 , Dx 09/28 10/08 - transferred , AC 20 450 +12 100% PAP 30 , plateau 17 10/09 - AC 20 450 +12 90% PAP 28 , plateau 17 10/10-AC 20 450 +12 100 % PAP 32 10/13 -AC 20 450 +12 85 % PAP 32 10/16- AC 20 450 +14 75 % PAP 32 10/17 - 45% 10/19 - fever and started on vanc and cefepime 10/21- 50% +8 SBP - 1 h did well 10/22 - 45% +8 , NG replaced - was coming out - ? aspiration Consultants: A/P AHRF / ARDS due to severe COVID19 - intubated 10/06, now AC 20 450 +8 60 % PAP 25 - stoped prone position -candidate for SBT today - for exersise porpose on peep 8 [id number]-[id number]-9/COVID-19 PNA (Pfizer x1 09/23 , symptoms 09/28 , Dx 09/28 ) -Steroids IV - started 10/08 -Hypercoagulable state , DDIMER 0.6 on 10/08 -> lovenox ppx dose FEVER - probably due to COVID Suspected superimposed bact PNA pct -empiric abx started on 10/08, cefepime / doxy - FINISHED course - ACEVEDO RECULTURED 10/13 Less likely non-infection etiology - 10/14 cheched TSH , lipase and LFT ( CRP will not be helpfull - Yeast in sputum - less likely true pathogen , antifungal started 10/15 10/19 -fever and started on vanc and cefpime Hyperglycemia / newly Dx DM - ISS , close f/up on steroids Hyper TGL emia -TGL 280 on admission to this facility ) - propofol used prn increaded agitation - ativan , versed Anemia - delutional , no bleeding Lines : RIGHT PICC 10/08 , (Central Line Necessity Reviewed) Chapman: 10/06 OG: + Nutrition: start 10/09 - REGLAN to try 10/13 Analgesia: Anxiety/ delirium VTE Prophylaxis: nancy 40 q 12 Stress Ulcer Prophylaxis: PPI Glycemic Control: + Plans in collaboration with bedside consultants and IM MDs. Discussed with RN to reach out if any questions or concerns A total of 40 minutes of critical care time was devoted to this patient today, required to treat and/or prevent further deterioration of critical care condition ( as above ) . WENDIE THOMASON MD Oct 23, 2020 09:58
[2020-10-23] MEDS: NS IV 1000 ML 1,000 ML IV SCH ×2 (10:17→17:36)
[2020-10-23 10:19] LABS: ABG BASE EXCESS 6.4 MMOL/L (-2.5-2.5); ABG OXYGEN SATURATION 94 % (94-100); ABG PCO2 46 MMHG (35-45); ABG PH 7.44 (7.37-7.43); ABG PO2 75 MMHG (79-93); ABG TCO2 31.8 MMOL/L (21.0-31.0)
[2020-10-23 10:20] LABS: ALLENS TEST POSITIVE; INSPIRED O2 55; PATIENT TEMP 37.5; VENTILATOR YES
--- NOTE | 2020-10-23 10:34 | Tele-ICU Progress Note ---
Subjective Date Seen by a Provider: Oct 23, 2020 Time Seen by a Provider: 10:34 Sepsis Event Evaluation Height, Weight, BMI Height: 5'7.00" Weight: 250lbs. 0oz. [id number]; 40.69 BMI Method:Stated Exam Exam Patient acknowledged, consented, and participated in this virtual visit which was conducted using real time audio/video Vital Signs Date Time Temp Pulse Resp B/P (MAP) Pulse Ox O2 Delivery O2 Flow Rate FiO2 10/23/20 08:20 107/73 10/23/20 08:00 94 Mechanical Ventilator 45 10/23/20 07:06 81 21 93 40 10/23/20 06:00 37.1 81 20 102/72 93 Mechanical Ventilator 45.00 10/23/20 05:25 122 22 90 10/23/20 05:00 37.2 86 20 105/73 95 Mechanical Ventilator 45.00 10/23/20 04:00 93 Mechanical Ventilator 45 10/23/20 04:00 37.2 93 22 115/79 93 Mechanical Ventilator 45.00 10/23/20 03:00 91 Mechanical Ventilator 45.00 10/23/20 03:00 37.1 96 22 106/65 91 Mechanical Ventilator 45.00 10/23/20 02:30 96 22 91 40 10/23/20 02:00 37.1 104 24 134/82 91 Mechanical Ventilator 40.00 10/23/20 01:31 95 Mechanical Ventilator 40.00 10/23/20 01:28 118/73 10/23/20 01:26 118/73 10/23/20 01:00 81 10/23/20 01:00 36.9 81 20 118/73 94 Mechanical Ventilator 45.00 10/23/20 00:00 36.8 86 20 118/73 95 Mechanical Ventilator 45.00 10/22/20 23:57 95 Mechanical Ventilator 45 10/22/20 23:30 97 Mechanical Ventilator 45.00 10/22/20 23:00 36.5 66 20 117/79 96 Mechanical Ventilator 50.00 10/22/20 22:15 68 20 96 50 10/22/20 22:00 36.7 70 20 111/75 96 Mechanical Ventilator 50.00 10/22/20 21:00 37.0 84 20 109/75 95 Mechanical Ventilator 50.00 10/22/20 20:37 36.4 92 Mechanical Ventilator 50.00 10/22/20 20:15 92 Mechanical Ventilator 50 10/22/20 20:00 36.3 83 20 108/74 94 Mechanical Ventilator 50.00 10/22/20 19:00 87 10/22/20 19:00 36.7 87 20 120/80 92 Mechanical Ventilator 50.00 10/22/20 18:47 81 23 94 50 10/22/20 18:00 37.1 85 101/72 94 Mechanical Ventilator 50.00 10/22/20 17:52 100/71 10/22/20 17:00 37.6 99 20 110/75 93 Mechanical Ventilator 50.00 10/22/20 16:00 37.4 118 34 105/76 93 Mechanical Ventilator 50.00 10/22/20 16:00 93 Mechanical Ventilator 50 10/22/20 15:00 36.7 112 134/83 97 Mechanical Ventilator 50.00 10/22/20 14:09 112 25 94 45 10/22/20 14:00 36.4 115 115/77 96 Mechanical Ventilator 50.00 10/22/20 13:00 36.3 59 123/66 95 Mechanical Ventilator 50.00 10/22/20 13:00 57 10/22/20 12:07 108/74 10/22/20 12:00 36.5 64 108/74 95 Mechanical Ventilator 50.00 10/22/20 12:00 92 Mechanical Ventilator 50 10/22/20 11:00 37.0 76 104/73 93 Mechanical Ventilator 50.00 I & O 10/23/20 07:00 Intake Total 2352 ml Output Total 3120 ml Balance -768 ml Height & Weight Height: 5'7.00" Weight: 250lbs. 0oz. [id number]; 40.69 BMI Method:Stated General Appearance: No Apparent Distress, WD/WN, Chronically ill, Obese, Other (Sedated and intubated) HEENT: Other (Sedated and endotracheal tube in place) Neck: Full Range of Motion, Normal Inspection, Non Tender, Supple, Carotid Bruit Respiratory: Crackles, Decreased Breath Sounds, Other (INTUBATED, ON VENT) Cardiovascular: Regular Rate, Rhythm, Bradycardia Capillary Refill: Less Than 3 Seconds Peripheral Pulses: 1+ Dorsalis Pedis (R), 1+ Left Dors-Pedis (L) Gastrointestinal: normal bowel sounds, non tender Extremity: Normal Capillary Refill, Normal Inspection, No Pedal Edema, Other ( right arm PICC, site look ok) Skin: Normal Color, Warm/Dry Lymphatic: No Adenopathy Results Lab Laboratory Tests 10/22/20 04:05 10/23/20 03:10 Assessment/Plan Assessment/Plan Tele-ICU Physician , Progress Note ) Available chart/ vitals / labs / Images reviewed Video assessment done using teleICU camera, rest of exam as per RN Discussed with RN , EXAM PER RN = course breath sounds, edema Events overnight : FEBRILE 37 , 2 max I/O = neg 1100 Drips: ns 20 Pressors: , hemodynamically stable Sedation gtt: ( RASS -3) versed 10, precedex 1 , fentanyl 200 off sedation - moves all EXTR follow commands VENT SETTINGS and ABG reviewed Hospital course: 10/06 - ARF /intubated in other facility COVID , , Pfizer x1 09/23 , symptoms 09/28 , Dx 09/28 10/08 - transferred , AC 20 450 +12 100% PAP 30 , plateau 17 10/09 - AC 20 450 +12 90% PAP 28 , plateau 17 10/10-AC 20 450 +12 100 % PAP 32 10/13 -AC 20 450 +12 85 % PAP 32 10/16- AC 20 450 +14 75 % PAP 32 10/17 - 45% 10/19 - fever and started on vanc and cefepime 10/21- 50% +8 SBP - 1 h did well 10/22 - 45% +8 , NG replaced - was coming out - ? aspiration 10/23 - Hb ?9.1 ( from 11 ) , SBP + 8 55% - RR 22 TV 470 Consultants: A/P AHRF / ARDS due to severe COVID19 - intubated 10/06, now AC 20 450 +8 60 % PAP 25 - stoped prone position -SBT today - for exersise porpose on peep 8 55% - RR 22 TV 470 - TO CONTINUE DAYLY , GOOD PROGRESS ETDQ-[id number]-9/COVID-19 PNA (Pfizer x1 09/23 , symptoms 09/28 , Dx 09/28 ) -Steroids IV 10/08- 10/17 -Hypercoagulable state , DDIMER 0.6 on 10/08 -> lovenox ppx dose FEVER - abx started on 10/08, cefepime / doxy - FINISHED course - ?non-infection etiology - 10/14 cheched TSH , lipase and LFT ( CRP will not be helpfull Yeast in sputum - less likely true pathogen , antifungal started 10/15 10/19 -fever and started on vanc and cefpime, cx f 10/19 rom RIGHT PICC placed 10/08- neg Hyperglycemia / newly Dx DM - ISS , close f/up on steroids Hyper TGL emia -TGL 280 on admission to this facility ) - propofol used prn increaded agitation - ativan , versed Anemia - slow trend , suspected delutional , no bleeding -10/23 Hb ?9.1 ( from 11 ) , PPI 40 qd Lines : RIGHT PICC 10/08 , (Central Line Necessity Reviewed) Chapman: 10/06 OG: + Nutrition: start 10/09 - REGLAN to try 10/13 Analgesia: Anxiety/ delirium VTE Prophylaxis: nancy 40 q 12 Stress Ulcer Prophylaxis: PPI Glycemic Control: + Plans in collaboration with bedside consultants and IM MDs. Discussed with RN to reach out if any questions or concerns A total of 40 minutes of critical care time was devoted to this patient today, required to treat and/or prevent further deterioration of critical care condition ( as above ) . WENDIE THOMASON MD Oct 23, 2020 10:34
[2020-10-23 11:01] VITALS: BP 130/101
--- NOTE | 2020-10-23 11:35 | Progress Note ---
NOEMÍ PASTOR MED STUDENT 10/23/20 1135: Subjective Date Seen by a Provider: Oct 23, 2020 Time Seen by a Provider: 07:40 Subjective/Events-last exam Remains sedated and intubated. Lightly sedated. Opens eyes to voice. Plan for SBT today with possible extubation pending how that goes. Review of Systems General: Other (unable to obtain) HEENT: Other (unable to obtain) Cardiovascular: Other (unable to obtain) Gastrointestinal: Other (unable to obtain) Genitourinary: Other (unable to obtain) Musculoskeletal: other (unable to obtain) Neurological: Other (unable to obtain) Objective Exam Last Set of Vital Signs Vital Signs Date Time Temp Pulse Resp B/P (MAP) Pulse Ox O2 Delivery O2 Flow Rate FiO2 10/23/20 11:01 105 34 94 55 10/23/20 08:20 107/73 10/23/20 08:00 Mechanical Ventilator 10/23/20 06:00 37.1 45.00 Capillary Refill : Less Than 3 Seconds I&O Intake and Output 10/23/20 00:00 Intake Total 2002 ml Output Total 3200 ml Balance -1198 ml Intake Oral 0 ml IV Total 502 ml Tube Feeding 1200 ml Other 300 ml Output Urine Total 3200 ml General: Other (Sedated and Intubated, critically ill appearing) HEENT: Atraumatic, Other (Endotracheal tube in place. OGT in place. ) Neck: Supple, No LAD Lungs: Other (Coarse breath sounds anteriorly, diminished bases bilateraly) Heart: Regular Rate, No Murmurs Abdomen: Normal Bowel Sounds, Soft, Other (Distened. Tolerating TF per RN. BS positive x 4 quadrants. ) Extremities: No Clubbing, No Cyanosis, Normal Pulses Skin: No Significant Lesion Neuro: Other (sedated) Psych/Mental Status: Other (sedated) Results Lab Laboratory Tests 10/22/20 11:59: Glucometer 188H 10/22/20 17:51: Glucometer 208H 10/22/20 23:21: Glucometer 220H 10/23/20 01:23: Glucometer 244H 10/23/20 03:10: White Blood Count 3.4L, Red Blood Count 3.35L, Hemoglobin 9.1L, Hematocrit 30L, Mean Corpuscular Volume 90, Mean Corpuscular Hemoglobin 27, Mean Corpuscular Hemoglobin Concent 30L, Red Cell Distribution Width 14.7H, Platelet Count 177, Mean Platelet Volume 11.2, Immature Granulocyte % (Auto) 1, Neutrophils (%) (Auto) 58, Lymphocytes (%) (Auto) 27, Monocytes (%) (Auto) 10, Eosinophils (%) (Auto) 4, Basophils (%) (Auto) 1, Neutrophils # (Auto) 2.0, Lymphocytes # (Auto) 0.9L, Monocytes # (Auto) 0.3, Eosinophils # (Auto) 0.1, Basophils # (Auto) 0.0, Immature Granulocyte # (Auto) 0.0, Sodium Level 139, Potassium Level 3.4L, Chloride Level 107, Carbon Dioxide Level 24, Anion Gap 8, Blood Urea Nitrogen 10, Creatinine 0.56L, Estimat Glomerular Filtration Rate 158, BUN/Creatinine Ratio 18, Glucose Level 219H, Calcium Level 7.8L, Corrected Calcium 8.9, Phosph orus Level 2.7, Magnesium Level 1.6, Total Bilirubin 0.4, Aspartate Amino Transf (AST/SGOT) 26, Alanine Aminotransferase (ALT/SGPT) 37, Alkaline Phosphatase 66, Total Protein 5.6L, Albumin 2.6L 10/23/20 03:50: Blood Gas Puncture Site LEFT RADIAL, Blood Gas Patient Temperature 37.2, Arterial Blood pH 7.44H, Arterial Blood Partial Pressure CO2 45, Arterial Blood Partial Pressure O2 104H, Arterial Blood HCO3 30H, Arterial Blood Total CO2 31.6H, Arterial Blood Oxygen Saturation 99, Arterial Blood Base Excess 6.1H, Casper Test POSITIVE, Blood Gas Ventilator Setting YES, Blood Gas Inspired Oxygen 40 10/23/20 06:29: Glucometer 248H 10/23/20 10:13: Blood Gas Puncture Site LEFT RADIAL, Blood Gas Patient Temperature 37.5, Arterial Blood pH 7.44H, Arterial Blood Partial Pressure CO2 46H, Arterial Blood Partial Pressure O2 75L, Arterial Blood HCO3 31H, Arterial Blood Total CO2 31.8H , Arterial Blood Oxygen Saturation 94, Arterial Blood Base Excess 6.4H, Casper Test POSITIVE, Blood Gas Ventilator Setting YES, Blood Gas Inspired Oxygen 55 Microbiology 10/19/20 Blood Culture - Preliminary, Resulted No growth 10/13/20 Gram Stain - Final, Complete 10/13/20 Sputum Culture - Final, Complete YEAST Assessment/Plan Assessment/Plan Assess & Plan/Chief Complaint Acute Hypoxic Respiratory Failure -SBT currently -possibly extubate to BIPAP today pending breathing trial -stop sedatives for breathing trial, may continue precedex COVID-19 PNA -s/p decadron Possible superimposed bacterial PNA -cefepime and vancomycin -anidulafungin Hypercoagulability secondary to COVID-19 -D dimer elevated at 1.13 on 10-15-20 -lovenox 40mg q12hr Anemia -slowly trending down, hgb 9.1 today -continue to monitor, likely dilutional Hypokalemia -replete today -continue to monitor New onset Diabetes Mellitus -Hgb A1C of 9 -accuchecks QID, SSI -levemir 20 units subq BID GI PPX -protonix Obesity Hypertriglyceridemia -continue to monitor History of Gout -monitor Tobacco use CYNTHIA LAYNE DO 10/24/20 0436: Subjective Subjective/Events-last exam Extubation was successful Vapotherm maintained Check meds and labs Monitor closely for need for reintubation Objective Exam General: Alert, Oriented X3, Cooperative, Other (Extubated) Lungs: Clear to Auscultation Heart: Regular Rate Assessment/Plan Assessment/Plan Assess & Plan/Chief Complaint Extubation was successful Vapotherm maintained Check meds and labs Monitor closely for need for reintubation Supervisory-Addendum Brief Verification & Attestation Participated in pt care: history, MDM, physical Personally performed: exam, history, MDM, supervision of care Care discussed with: Medical Student Procedures: n/a Results interpretation: Verified all documentation Verification and Attestation of Medical Student E/M Service A medical student performed and documented this service in my presence. I reviewed and verified all information documented by the medical student and made modifications to such information, when appropriate. I personally performed the physical exam and medical decision making. Cynthia Layne, Oct 24, 2020,04:36 [employer]EM[employer] PAST[employer] MED STUDENT Oct 23, 2020 11:35 CYNTHIA LAYNE DO Oct 24, 2020 04:36
--- NOTE | 2020-10-23 12:31 | Tele-ICU Progress Note ---
Progress Note Spontaneous Breathing Trial dome SBT DATA: Duration 120 min, meet all required criteria ( on precedex 0.5 Extubated without complications to vapotherm will do ABG prior to night sleep - might need BIPAP at night ( poorly tolerted NIPPV prior to intubation prn precedex with h/o severe anxiety at baseline Monitored via camera few times during SBT and after ecxtubation discussed wt Dr Macias ( additional CCT 15 min ) Focused Exam Height, Weight, BMI Height: 5'7.00" Weight: 250lbs. 0oz. [id number]; 40.69 BMI Method:Stated WENDIE THOMASON MD Oct 23, 2020 12:31
--- NOTE | 2020-10-23 14:14 | Progress Note ---
SPENCER RICHARDSON MED STUDENT 10/23/20 1414: Subjective Date Seen by a Provider: Oct 23, 2020 Time Seen by a Provider: 08:15 Subjective/Events-last exam Pollo Evans is sedated and intubated with TV 450 / RR 20 / PEEP 8 / O2 55%. Objective Exam Last Set of Vital Signs Vital Signs Date Time Temp Pulse Resp B/P (MAP) Pulse Ox O2 Delivery O2 Flow Rate FiO2 10/23/20 14:00 107 19 131/99 Vapotherm 40.00 80.00 10/23/20 13:00 95 10/23/20 12:00 80 10/23/20 11:00 Capillary Refill : Less Than 3 Seconds I&O Intake and Output 10/23/20 00:00 Intake Total 2002 ml Output Total 3200 ml Balance -1198 ml Intake Oral 0 ml IV Total 502 ml Tube Feeding 1200 ml Other 300 ml Output Urine Total 3200 ml General: Other (Patient is sedated and intubated) HEENT: Atraumatic Neck: No JVD, Other (no rashes, bruises) Lungs: Other (diminished breath sounds bilaterally, no crackles, wheezes) Heart: Regular Rate, No Murmurs Abdomen: Soft, Other (no distention) Extremities: No Cyanosis, Other (SCDs on bilateral feet) Skin: No Rashes Results Lab Laboratory Tests 10/22/20 17:51: Glucometer 208H 10/22/20 23:21: Glucometer 220H 10/23/20 01:23: Glucometer 244H 10/23/20 03:10: White Blood Count 3.4L, Red Blood Count 3.35L, Hemoglobin 9.1L, Hematocrit 30L, Mean Corpuscular Volume 90, Mean Corpuscular Hemoglobin 27, Mean Corpuscular Hemoglobin Concent 30L, Red Cell Distribution Width 14.7H, Platelet Count 177, Mean Platelet Volume 11.2, Immature Granulocyte % (Auto) 1, Neutrophils (%) (Auto) 58, Lymphocytes (%) (Auto) 27, Monocytes (%) (Auto) 10, Eosinophils (%) (Auto) 4, Basophils (%) (Auto) 1, Neutrophils # (Auto) 2.0, Lymphocytes # (Auto) 0.9L, Monocytes # (Auto) 0.3, Eosinophils # (Auto) 0.1, Basophils # (Auto) 0.0, Immature Granulocyte # (Auto) 0.0, Sodium Level 139, Potassium Level 3.4L, Chloride Level 107, Carbon Dioxide Level 24, Anion Gap 8, Blood Urea Nitrogen 10, Creatinine 0.56L, Estimat Glomerular Filtration Rate 158, BUN/Creatinine Ratio 18, Glucose Level 219H, Calcium Level 7.8L, Corrected Calcium 8.9, Phosphorus Level 2.7, Magnesium Level 1.6, Total Bilirubin 0.4, Aspartate Amino Transf (AST/SGOT) 26, Alanine Aminotransferase (ALT/SGPT) 37, Alkaline Phosphatase 66, Total Protein 5.6L, Albumin 2.6L 10/23/20 03:50: Blood Gas Puncture Site LEFT RADIAL, Blood Gas Patient Temperature 37.2, Arterial Blood pH 7.44H, Arterial Blood Partial Pressure CO2 45, Arterial Blood Partial Pressure O2 104H, Arterial Blood HCO3 30H, Arterial Blood Total CO2 31.6H, Arterial Blood Oxygen Saturation 99, Arterial Blood Base Excess 6.1H, Casper Test POSITIVE, Blood Gas Ventilator Setting YES, Blood Gas Inspired Oxygen 40 10/23/20 06:29: Glucometer 248H 10/23/20 10:13: Blood Gas Puncture Site LEFT RADIAL, Blood Gas Patient Temperature 37.5, Jaqueline rial Blood pH 7.44H, Arterial Blood Partial Pressure CO2 46H, Arterial Blood Partial Pressure O2 75L, Arterial Blood HCO3 31H, Arterial Blood Total CO2 31.8H , Arterial Blood Oxygen Saturation 94, Arterial Blood Base Excess 6.4H, Casper Test POSITIVE, Blood Gas Ventilator Setting YES, Blood Gas Inspired Oxygen 55 10/23/20 12:03: Glucometer 154H Microbiology 10/19/20 Blood Culture - Preliminary, Resulted No growth 10/13/20 Gram Stain - Final, Complete 10/13/20 Sputum Culture - Final, Complete YEAST Assessment/Plan Assessment/Plan Assess & Plan/Chief Complaint COVID-19 pneumonia -intubated. TV 450 / PEEP 8 / FiO2 55% / RR 20 -failed weaning off the vent 2 days ago -will attempt to wean again today. Otherwise, will need tracheostomy anemia HGB drop from 11.0 to 9.1 today. Recheck HGB, Continue to monitor. Transfuse if <7 Cefepime, Vancomycin + continue Anidulafungin for yeast in sputum culture. DM2 -add regular insulin with persistently high BS continue glycemic control DVT/PE prophylaxis LAYNE,CYNTHIA DO 10/24/20 0437: Subjective Subjective/Events-last exam Extubation was successful Vapotherm maintained Check meds and labs Monitor closely for need for reintubation Objective Exam General: Alert, Oriented X3, Cooperative HEENT: Atraumatic Neck: Supple Lungs: Clear to Auscultation, Normal Air Movement, Other (Extubated) Neuro: Strength at 5/5 X4 Ext Psych/Mental Status: Mental Status NL Assessment/Plan Assessment/Plan Assess & Plan/Chief Complaint Extubated Supervisory-Addendum Brief Verification & Attestation Participated in pt care: history, MDM, physical Personally performed: exam, history, MDM, supervision of care Care discussed with: Medical Student Procedures: n/a Results interpretation: Verified all documentation Verification and Attestation of Medical Student E/M Service A medical student performed and documented this service in my presence. I reviewed and verified all information documented by the medical student and made modifications to such information, when appropriate. I personally performed the physical exam and medical decision making. Cynthia Layne, Oct 24, 2020,04:37 [employer]ER [employer]AR[employer] MED STUDENT Oct 23, 2020 14:14 CYNTHIA LAYNE DO Oct 24, 2020 04:37
[2020-10-23] MEDS: ENOXAPARIN 40 MG/0.4 ML (LOVENOX) SYR SC SCH ×2 (14:25→23:24)
[2020-10-23 23:50] LABS: ABG OXYGEN SATURATION 94 % (94-100); ABG PCO2 38 MMHG (35-45); ABG PH 7.48 (7.37-7.43); ABG PO2 66 MMHG (79-93); ABG TCO2 28.6 MMOL/L (21.0-31.0)
[2020-10-24 00:01] LABS: ALLENS TEST YES-POS; INSPIRED O2 50%; PATIENT TEMP 37.2; VENTILATOR NO
[2020-10-24] MEDS: inSUlin ASPART (NovoLOG) 1 UNIT/0.01 ML (CHARGE PER UNIT) SC SCH ×5 (00:58→21:06)
[2020-10-24] MEDS: RT-ALBUTEROL/IPRATROPIUM 3 ML (DUONEB) VIAL INH SCH ×6 (02:56→23:23)
[2020-10-24 03:28] LABS: BASOPHILS % (AUTO) 1 % (0-10); EOSINOPHILS # (AUTO) 0.1 10^3/uL (0.0-0.3); EOSINOPHILS % (AUTO) 2 % (0-10); HEMATOCRIT 38 % (40-54); HEMOGLOBIN 11.9 g/dL (13.3-17.7); LYMPHOCYTES # (AUTO) 1.1 10^3/uL (1.0-4.0); LYMPHOCYTES % (AUTO) 18 % (12-44); MEAN CORPUSCULAR HEMOGLOBIN 27 pg (25-34); MEAN CORPUSCULAR HGB CONC 31 g/dL (32-36); MEAN CORPUSCULAR VOLUME 88 fL (80-99); MEAN PLATELET VOLUME 10.3 fL (9.0-12.2); MONOCYTES # (AUTO) 0.4 10^3/uL (0.0-1.0); MONOCYTES % (AUTO) 7 % (0-12); NEUTROPHILS # (AUTO) 4.5 10^3/uL (1.8-7.8); NEUTROPHILS % (AUTO) 71 % (42-75); PLATELET COUNT 208 10^3/uL (130-400); WHITE BLOOD COUNT 6.3 10^3/uL (4.3-11.0)
[2020-10-24 03:39] LABS: ALBUMIN 3.3 GM/DL (3.2-4.5); POTASSIUM 3.6 MMOL/L (3.6-5.0)
[2020-10-24 03:40] LABS: CALCIUM 9.4 MG/DL (8.5-10.1)
[2020-10-24 03:42] LABS: TOTAL PROTEIN 7.3 GM/DL (6.4-8.2)
[2020-10-24 03:43] LABS: BILIRUBIN,TOTAL 0.6 MG/DL (0.1-1.0)
[2020-10-24 03:45] LABS: CREATININE SERUM 0.61 MG/DL (0.60-1.30); PHOSPHORUS 2.3 MG/DL (2.3-4.7)
[2020-10-24] MEDS: LORazepam INJECTION FOR DRIP 20 MG in D5W 100 ML IVPB 90 ML IV SCH (06:31)
[2020-10-24] MEDS: KCL 20 MEQ TAB (K-DUR) PO SCH (06:32)
[2020-10-24] MEDS: POTASSIUM CL 10MEQ/50ML IVPB 50 ML IV SCH ×3 (06:32→07:54)
[2020-10-24] MEDS: MAGNESIUM 1 GM/100 ML IVPB 100 ML IV SCH (06:32)
[2020-10-24] MEDS: LEVOTHYROXINE 100 MCG INJ (SYNTHROID) VIAL IV SCH (06:57)
[2020-10-24] MEDS: CEFEPIME INJECTION 1,000 MG in WATER (STERILE) FOR INJECTION 10 ML IV SCH ×4 (06:57→23:56)
[2020-10-24] MEDS: inSUlin (REGULAR) HUMAN 1 UNIT/0.01 ML (CHARGE PER UNIT) SC SCH ×2 (07:02→12:52)
[2020-10-24] MEDS: PANTOPRAZOLE 40 MG (PROTONIX) VIAL IV SCH (07:54)
[2020-10-24] MEDS: FUROSEMIDE 40 MG/4 ML INJ (LASIX) IVP SCH (07:54)
[2020-10-24] MEDS ORDERED: TROUGH ORDER-PHARMACY XX NR (08:00)
[2020-10-24] MEDS: LACRI-LUBE OPTHALMIC OINT 3.5 GM TUBE OU SCH ×2 (08:55→21:06)
[2020-10-24] MEDS: ANIDULAFUNGIN INJECTION 100 MG in NS (IVPB) 100 ML IV SCH (08:57)
[2020-10-24] MEDS: VANCOMYCIN INJECTION 2,000 MG in NS IV 500 ML 500 ML IV SCH ×2 (09:07→21:05)
[2020-10-24 09:53] VITALS: BP 123/85
--- NOTE | 2020-10-24 11:30 | ST Dysphagia Evaluation ---
Speech Evaluation-General Medical Diagnosis COVID Onset Date: Oct 24, 2020 Therapy Diagnosis Therapy Diagnosis: dysphagia Precautions Precautions: Fall Precautions/Isolations: Aspiration Referral Referring Physician: Cynthia Macias Reason for Referral: Evaluation/Treatment Medical History COVID Current History COVID, dysphagia Reviewed History: Yes Social History Home: Single Level Current Living Status: Spouse Speech PLF/Current-Dysphagia Prior Level of Function Regular solids, thin liquids Subjective Pt was alert and in bed. Pt's significant other, Angie, was present during the exam. Both were friendly and cooperative. Cognitive Status Patient Orientation: Normal For Age Oral Motor Skills Dentition: Natural Ability to Follow Directions: Excellent Oral Expression Ability: No Impairment Voice Voice Phonatory-Based Quality: Normal Voice Pitch: Normal Voice Loudness: Normal Face Facial Symmetry: Symmetrical Oral-Facial Assessment Oral-Facial Dentition: Normal Labial Seal Description: Normal Smile: Poor Coordination Puff Cheeks: Reduced Strength Lingual Protrusion: Abnormal Pt reported having tongue "tied down" since . Lingual ROM: Abnormal Pt reported tongue ROM has been reduced since . Demos functional skill Lingual Strength: Abnormal Gag Reflex Response: Normal Pharynx Velopharyngeal Move.: Normal Volitional Dry Swallow: Yes Voluntary Cough: Yes Can Clear Throat Volitionally: Yes Productive Cough: Yes Productive Throat Clear: Yes Dysphagia Evaluation Consistencies Presented: Thin Liquid, Mechanical Soft, Ground, Pureed Oral Phase: Anterior Spillage, Oral Residue Minimal oral residue noted on ground meat. Able to clear residue with multiple swallows and/or follow of thin liquid. Minimal anterior spillage observed during thin liquids via straw. Pharyngeal Phase: Multiple Swallow Attempts, C/O Globus Sensation Dietary Recommendations: Ground Liquid Recommendations: Thin Solids should be bite-sized and soft or ground. Did not demonstrate overt s/s aspiration with ground solid. Tolerated purees and mechanical soft solids as well as thin liquids. Pt coughed occasionally during exam, but coughing was not observed immediately following a swallow. Swallowing Precautions: Alternate Liquids/Solids, Small Bites and Sips, Sitting Upright 90 Degrees Dysphagia Evaluation Summary No overt s/s aspiration observed with thin liquids or ground/mech soft or puree solids. Pt demonstrated mild oral residue with ground solid and mild anterior spillage with thin liquids. Due to fatigue and strength, it is recommended that pt is assisted during mealtime Barriers to Learning fatigue Speech-Plan Patient/Family Goals Patient/Family Goals: return to home with , Angie. Treatment Plan Speech Therapy Treatment Plan: Discontinue ST Pt tolerated ground/puree/mech soft solids and thin liquids. Skilled ST services not recommended at this time. Pt was educated on safe swallow precautions. Treatment Duration: Oct 24, 2020 Frequency: 1 time per week Estimated Hrs Per Day: Other Rehab Potential: Good Barriers to Learning: fatigue Pt/Family Agrees to Plan: Yes Safety Risks/Education Teaching Recipient: Patient, Significant Other Teaching Methods: Discussion Response to Teaching: Verbalize Understanding Education Topics Provided: safe swallow precautions (e.g. sitting upright 90 degrees, small bites/sips, follow with multiple swallows or thin liquids) Time Speech Therapy Time In: 08:05 Speech Therapy Time Out: 08:50 Total Billed Time: 45 Billed Treatment Time 1, NARGIS Conner Oct 24, 2020 11:30
--- NOTE | 2020-10-24 12:42 | Tele-ICU Progress Note ---
Subjective Date Seen by a Provider: Oct 24, 2020 Time Seen by a Provider: 12:37 Subjective/Events-last exam This patient was extubated yesterday and put on Vapotherm. He is comfortably tolerating Vapotherm and currently his saturation is 96%. Hemodynamically stable. Heart rate is 91/min. His blood cultures are negative. Hence I would stop vancomycin and continue cefepime and he Eraxis. Video visit made Review of Systems ROS per attending physician Sepsis Event Evaluation Height, Weight, BMI Height: 5'7.00" Weight: 250lbs. 0oz. [id number]; 40.69 BMI Method:Stated Exam Exam Patient acknowledged, consented, and participated in this virtual visit which was conducted using real time audio/video Vital Signs Date Time Temp Pulse Resp B/P (MAP) Pulse Ox O2 Delivery O2 Flow Rate FiO2 10/24/20 12:00 37.1 10/24/20 10:07 92 Vapotherm 25.00 40 10/24/20 09:53 36.6 91 94 10/24/20 09:00 94 28 147/87 98 Vapotherm 30.00 45.00 10/24/20 08:01 36.6 10/24/20 08:01 Vapotherm 30.00 45.00 10/24/20 08:00 94 28 147/87 98 Vapotherm 30.00 50.00 10/24/20 07:59 94 Vapotherm 30.00 50 10/24/20 07:00 90 15 137/98 95 Vapotherm 30.00 50.00 10/24/20 06:57 91 10/24/20 06:34 95 Vapotherm 30.00 50 10/24/20 06:00 89 23 123/85 94 Vapotherm 30.00 50.00 10/24/20 05:00 97 14 138/92 94 Vapotherm 30.00 50.00 10/24/20 04:00 36.6 10/24/20 04:00 94 22 134/83 93 Vapotherm 30.00 50.00 10/24/20 04:00 94 Vapotherm 50 10/24/20 03:00 89 24 156/92 95 Vapotherm 30.00 50.00 10/24/20 02:56 96 Vapotherm 30.00 60 10/24/20 02:00 93 20 136/89 95 Vapotherm 30.00 50.00 10/24/20 01:00 98 19 154/75 94 Vapotherm 30.00 50.00 10/24/20 01:00 100 10/24/20 00:01 37.2 10/24/20 00:00 96 26 152/92 94 Vapotherm 30.00 50.00 10/24/20 00:00 94 Vapotherm 50 10/23/20 23:29 93 Vapotherm 30.00 50.00 10/23/20 23:25 100 147/87 10/23/20 23:00 103 23 147/87 95 Vapotherm 30.00 60.00 10/23/20 22:42 96 Vapotherm 30.00 60 10/23/20 22:00 109 21 162/97 95 Vapotherm 30.00 60.00 10/23/20 21:00 104 21 153/118 96 Vapotherm 40.00 60.00 10/23/20 20:00 98 25 155/95 97 Vapotherm 40.00 60.00 10/23/20 19:51 95 Vapotherm 40.00 60.00 10/23/20 19:47 96 Vapotherm 65 10/23/20 19:42 36.0 96 Vapotherm 40.00 65.00 10/23/20 19:00 97 Vapotherm 40.00 70.00 10/23/20 19:00 109 10/23/20 19:00 110 20 154/96 97 Vapotherm 40.00 70.00 10/23/20 18:40 96 Vapotherm 40.00 70 10/23/20 18:00 93 25 134/98 96 Vapotherm 40.00 80.00 10/23/20 17:00 96 28 144/102 95 Vapotherm 40.00 80.00 10/23/20 16:00 96 29 134/94 96 Vapotherm 40.00 80.00 10/23/20 15:36 94 Vapotherm 80 10/23/20 15:33 36.4 10/23/20 15:21 95 Vapotherm 40.00 80 10/23/20 15:00 98 21 145/96 94 Vapotherm 40.00 80.00 10/23/20 14:00 107 19 131/99 Vapotherm 40.00 80.00 10/23/20 13:00 103 40 149/99 95 Vapotherm 40.00 80.00 10/23/20 12:47 107 I & O 10/24/20 07:00 Intake Total 250 ml Output Total 3700 ml Balance -3450 ml Height & Weight Height: 5'7.00" Weight: 250lbs. 0oz. [id number]; 40.69 BMI Method:Stated General Appearance: No Apparent Distress, WD/WN, Chronically ill, Obese, Other (Sedated and intubated) HEENT: Other (Sedated and endotracheal tube in place) Neck: Full Range of Motion, Normal Inspection, Non Tender, Supple, Carotid Bruit Respiratory: Crackles, Decreased Breath Sounds, Other (INTUBATED, ON VENT) Cardiovascular: Regular Rate, Rhythm, Bradycardia Capillary Refill: Less Than 3 Seconds Peripheral Pulses: 1+ Dorsalis Pedis (R), 1+ Left Dors-Pedis (L) Gastrointestinal: normal bowel sounds, non tender Extremity: Normal Capillary Refill, Normal Inspection, No Pedal Edema, Other (right arm PICC, site look ok) Skin: Normal Color, Warm/Dry Lymphatic: No Adenopathy Other comments PE PER ATTENDING PHYSICIAN Results Lab Laboratory Tests 10/23/20 03:10 10/24/20 03:20 Assessment/Plan Assessment/Plan 1. Covid19 pneumonia 2. Acute hypoxic respiratory failure ,extubated on 10/23/20, on vapotherm now 3. Suspected superimposed bacterial pneumonia recurrent 4. Hyperglycemia with newly diagnosed ~diabetes 5. Hypertriglyceridemia Recommendations 1. Continue vapotherm 2. DVT prophylaxis and ulcer prophylaxis. 3. Insulin with sliding scale coverage. 4. As cultures did not show any staph will D/C vancomycin and continue cefepime, Eraxis for now Critical Care: Critically Ill Patient Time spent with patient (mins): 35 OCTAVIA KNOX MD Oct 24, 2020 12:42
[2020-10-24] MEDS: ENOXAPARIN 40 MG/0.4 ML (LOVENOX) SYR SC SCH ×2 (12:54→23:56)
--- NOTE | 2020-10-24 13:10 | Physical Therapy Evaluation ---
PT Evaluation-General Medical Diagnosis Admission Date Oct 08, 2020 at 10:38 Medical Diagnosis: COVID Onset Date: Oct 24, 2020 Therapy Diagnosis Therapy Diagnosis: Gait deficit, strength deficit Height/Weight Height (Feet): 5 Height (Inches): 7.00 Weight (Pounds): 250 Weight (Ounces): 0 Precautions Precautions/Isolations: Aspiration, Fall Prevention Referral Physician: Dr. Macias Reason for Referral: Evaluation/Treatment Medical History Reviewed History: Yes Social History Home: Single Level Current Living Status: Spouse Entry Into Home: Stairs With Railing PT Steps Into Home: 3 Prior Prior Level of Function SCALE: Activities may be completed with or without assistive devices. 8-Jamefcqwpg-ywfyygu completes the activity by him/herself with no assistance from a helper. 5-Set-up or Clean-up Assistance-helper sets up or cleans up; patient completes activity. [place] assists only prior to or following the activity. 4-Supervision or Touching Assistance-helper provides verbal cues and/or touching/steadying and/or contact guard assistance as patient completes activity. Assistance may be provided throughout the activity or intermittently. 3-Partial/Moderate Assistance-helper does LESS THAN HALF the effort. [place] lifts, holds or supports trunk or limbs, but provides less than half the effort. 2-Substantial/Maximal Assistance-helper does MORE THAN HALF the effort. [place] lifts or holds trunk or limbs and provides more than half the effort. 4-Aibwovqyp-btlfkg does ALL the effort. Patient does none of the effort to complete the activity. Or, the assistance of 2 or more helpers is required for the patient to complete the activity. If activity was not attempted, code reason: 7-Patient Refused. 9-Not Applicable-not attempted and the patient did not perform the activity before the current illness, exacerbation or injury. 10-Not Attempted due to Environmental Limitations-(lack of equipment, weather restraints, etc.). 88-Not Attempted due to Medical Conditions or Safety Concerns. Bed Mobility: 6 Transfers (B,C,W/C): 6 Gait: 6 Stairs: 6 Indoor Mobility (Ambulation): Independent Stairs: Independent Prior Devices Use: None PT Evaluation-Current Subjective Patient lying supine in bed upon PT arrival, with and OT in the room, patient agreeable to treatment. Patient rates pain at 0/10 currently. Patient reports that he want to try to stand. Objective Patient Orientation: Person, Place, Time, Situation Attachments: Oxygen, Chapman Catheter, IV ROM/Strength ROM Lower Extremities PROM WFL bilaterally all planes Strength Lower Extremities Grossly 3/5 bilaterally Transfers Roll Left to Right (QC): 2 Sit to Lying (QC): 2 Lying to Sitting/Side of Bed(Q: 2 Sit to Stand (QC): 2 Gait Does the Patient Walk?: No and Walking Goal IS indicated Mode of Locomotion: Walk Anticipated Mode of Locomotion: Walk Walk 10 feet (QC): 88 Balance Sitting Static: Poor Sitting Dynamic: Poor Standing Static: Poor Standing Dynamic: Poor Treatment Patient performed bed mobility and transfers with max A x 2 with OT. Patient was able to tolerate sitting with close observation, but SBA for a few minutes. Patient performed sit to stand with max A and extra assistance for line management. Patient returned to bed and performed LE therapeutic exercise of AAROM x 10 bilaterally all planes. Assessment/Needs Patient tolerated treatment well given that he was recently extubated. Patient performs all observed bed mobility and transfers with max A. He is able to perform sit to stand x 2 with second attempt moving higher in the bed. Patient requires max A x 2 for sliding up in bed. Patient performs LE therapeutic exercise as listed above. Patient in bed post treatment with all needs met, in the room, call light in reach and nursing notified. Rehab Potential: Fair Equipment Needs FWW, W/C, BSC, Shower/bath rails depending on patients overall improvement. PT Short Term Goals Short Term Goals Time Frame: Nov 07, 2020 Roll Left & Right: 3 Sit to lyin Lying to sitting on side of be: 3 Sit to stand: 3 Chair/czn-ti-hqhqy transfer: 3 Toilet transfer: 3 Walk 10 feet: 2 Does pt use a wc or scooter: No PT Human Services Professional Goals Custodial Goals PT Human Services Professional Goals Time Frame: Dec 05, 2020 Roll Left & Right (QC): 4 Sit to Lying (QC): 4 Lying-Sitting on Side/Bed(QC): 4 Sit to Stand (QC): 4 Chair/Zom-sn-Gglok Xfer(QC): 4 Toilet Transfer (QC): 4 Does the Patient Walk: No and Walking Goal IS indicated Walk 10 feet (QC): 4 Walk 50ft with 2 Turns (QC): 4 Walk 150 ft (QC): 3 1 Step (curb) (QC): 3 4 Steps (QC): 3 PT Plan Problem List Problem List: Activity Tolerance, Functional Strength, Safety, Balance, Gait, Transfer, Bed Mobility, ROM Treatment/Plan Treatment Plan: Continue Plan of Care Treatment Plan: Bed Mobility, Education, Functional Activity Chris, Functional Strength, Group Therapy, Gait, Safety, Therapeutic Exercise, Transfers Treatment Duration: Feb 11, 2021 Frequency: 6 times per week Estimated Hrs Per Day: .25 hour per day Patient and/or Family Agrees t: Yes Safety Risks/Education Patient Education: Transfer Techniques, Safety Issues Teaching Recipient: Patient Teaching Methods: Demonstration, Discussion Response to Teaching: Verbalize Understanding, Reinforcement Needed Time/GCodes Time In: 1145 Time Out: 1215 Total Billed Treatment Time: 30 Total Billed Treatment Visit, AYANA Campa JOHN A PT Oct 24, 2020 13:10
--- NOTE | 2020-10-24 13:20 | Progress Note ---
SPENCER RICHARDSON MED STUDENT 10/24/20 1320: Subjective Date Seen by a Provider: Oct 24, 2020 Time Seen by a Provider: 08:40 Subjective/Events-last exam Pollo Evans was extubated yesterday and states he has no pain. He is on vapotherm 30L / 80% oxygen with an o2 saturation of 95%. He reports he has been able to speak and swallow without difficulty, although the RN notes he failed a swallow test yesterday. Pollo denies constipation, nausea, or vomiting. Objective Exam Last Set of Vital Signs Vital Signs Date Time Temp Pulse Resp B/P (MAP) Pulse Ox O2 Delivery O2 Flow Rate FiO2 10/24/20 12:45 94 Vapotherm 30.00 40 10/24/20 12:00 37.1 10/24/20 12:00 93 28 140/98 Capillary Refill : Less Than 3 Seconds I&O Intake and Output 10/24/20 00:00 Intake Total 1100 ml Output Total 3570 ml Balance -2470 ml Intake Oral 0 ml IV Total 350 ml Tube Feeding 600 ml Other 150 ml Output Urine Total 3570 ml General: Alert, Oriented X3 (not well oriented to time, which is understandable given length of intubation) HEENT: PERRLA, EOMI Lungs: Other (coarse breath sounds, diminished throughout) Heart: Regular Rate, No Murmurs, Other (occasional PVCs on monitor) Abdomen: Soft, No Tenderness Extremities: Other (mild edema bilaterally, no calf tenderness) Skin: No Rashes, Other (lesion at the left cheek from prolonged intubation) Neuro: Other (weak forearm flexion, weak general maintenance technician strength. Able to move all extremities.) Results Lab Laboratory Tests 10/23/20 17:28: Glucometer 216H 10/23/20 23:41: Blood Gas Puncture Site right radial, Blood Gas Patient Temperature 37.2, Arterial Blood pH 7.48H, Arterial Blood Partial Pressure CO2 38, Arterial Blood Partial Pressure O2 66L, Arterial Blood HCO3 28H, Arterial Blood Total CO2 28.6, Arterial Blood Oxygen Saturation 94, Arterial Blood Base Excess 4.0H, [place] Test YES-POS, Blood Gas Ventilator Setting NO, Blood Gas Inspired Oxygen 50% 10/23/20 23:45: Glucometer 194H 10/24/20 03:20: White Blood Count 6.3, Red Blood Count 4.34, Hemoglobin 11.9#L, Hematocrit 38L, Mean Corpuscular Volume 88, Mean Corpuscular Hemoglobin 27, Mean Corpuscular He moglobin Concent 31L, Red Cell Distribution Width 14.5, Platelet Count 208, Mean Platelet Volume 10.3, Immature Granulocyte % (Auto) 1, Neutrophils (%) (Auto) 71, Lymphocytes (%) (Auto) 18, Monocytes (%) (Auto) 7, Eosinophils (%) (Auto) 2, Basophils (%) (Auto) 1, Neutrophils # (Auto) 4.5, Lymphocytes # (Auto) 1.1, Monocytes # (Auto) 0.4, Eosinophils # (Auto) 0.1, Basophils # (Auto) 0.0, Immature Granulocyte # (Auto) 0.1, Sodium Level 138, Potassium Level 3.6, Chloride Level 101, Carbon Dioxide Level 28, Anion Gap 9, Blood Urea Nitrogen 8, Creatinine 0.61, Estimat Glomerular Filtration Rate 144, BUN/Creatinine Ratio 13, Glucose Level 138H, Calcium Level 9.4, Corrected Calcium 10.0, Phosphorus Level 2.3, Magnesium Level 2.0, Total Bilirubin 0.6, Aspartate Amino Transf (AST/SGOT) 82H, Alanine Aminotransferase (ALT/SGPT) 104H, Alkaline Phosphatase 130, Total Protein 7.3, Albumin 3.3 10/24/20 07:01: Glucometer 154H 10/24/20 07:50: Vancomycin Level Trough 14.5 10/24/20 11:21: Glucometer 169H Microbiology 10/19/20 Blood Culture - Preliminary, Resulted No growth 10/13/20 Gram Stain - Final, Complete 10/13/20 Sputum Culture - Final, Complete YEAST Assessment/Plan Assessment/Plan Assess & Plan/Chief Complaint COVID-19 pneumonia on vapotherm s/p prolonged ventilation start PT/OT and work with RT HGB restabilized. Low value was likely a lab error. Cefepime, Vancomycin + continue Anidulafungin for yeast in sputum culture. DM2 continue glycemic control DVT/PE prophylaxis CYNTHIA LAYNE DO 10/25/20 0543: Subjective Subjective/Events-last exam Patient maintained on Vapotherm at bedside Much improved status Hopefully inpatient rehab will be an option soon Review of Systems General: Fatigue Pulmonary: Dyspnea Objective Exam General: Alert, Oriented X3, Cooperative, No Acute Distress Lungs: Clear to Auscultation Heart: Regular Rate Psych/Mental Status: Mental Status NL Assessment/Plan Assessment/Plan Assess & Plan/Chief Complaint PT and OT Wean Vapotherm Monitor closely Supervisory-Addendum Brief Verification & Attestation Participated in pt care: history, MDM, physical Personally performed: exam, history, MDM, supervision of care Care discussed with: Medical Student Procedures: n/a Results interpretation: Verified all documentation Verification and Attestation of Medical Student E/M Service A medical student performed and documented this service in my presence. I reviewed and verified all information documented by the medical student and made modifications to such information, when appropriate. I personally performed the physical exam and medical decision making. Cynthia Layne, Oct 25, 2020,05:43 SPENCER RICHARDSON MED STUDENT Oct 24, 2020 13:20 CYNTHIA LAYNE DO Oct 25, 2020 05:43
--- NOTE | 2020-10-24 13:37 | Occupational Therapy Eval ---
OT Evaluation-General/PLF Medical Diagnosis Admission Date Oct 08, 2020 at 10:38 Medical Diagnosis: COVID Onset Date: Oct 24, 2020 Therapy Diagnosis Therapy Diagnosis: debility Height/Weight Height (Feet): 5 Height (Inches): 7.00 Weight (Pounds): 250 Weight (Ounces): 0 Precautions Precautions/Isolations: Aspiration, Fall Prevention Referral Physician: Dr. Macias Referral Reason: Evaluation/Treatment Medical History Reviewed History: Yes Social History Home: Single Level Current Living Status: Spouse Entry Into Home: Stairs With Railing Steps Into Home: 3 ADL-Prior Level of Function SCALE: Activities may be completed with or without assistive devices. 0-Sqfziqdelm-evchxnk completes the activity by him/herself with no assistance from a helper. 5-Set-up or Clean-up Assistance-helper sets up or cleans up; patient completes activity. [place] assists only prior to or following the activity. 4-Supervision or Touching Assistance-helper provides verbal cues and/or touching/steadying and/or contact guard assistance as patient completes activity . Assistance may be provided throughout the activity or intermittently. 3-Partial/Moderate Assistance-helper does LESS THAN HALF the effort. [place] lifts, holds or supports trunk or limbs, but provides less than half the effort. 2-Substantial/Maximal Assistance-helper does MORE THAN HALF the effort. [place] lifts or holds trunk or limbs and provides more than half the effort. 5-Wuknxihsw-amhhfp does ALL the effort. Patient does none of the effort to complete the activity. Or, the assistance of 2 or more helpers is required for the patient to complete the activity. If activity was not attempted, code reason: 7-Patient Refused. 9-Not Applicable-not attempted and the patient did not perform the activity before the current illness, exacerbation or injury. 10-Not Attempted due to Environmental Limitations-(lack of equipment, weather restraints, etc.). 88-Not Attempted due to Medical Conditions or Safety Concerns. ADL PLOF Comments Pt IND with ADLs and functional mobility at PLOF, no AD/AE OT Current Status Subjective Pt in bed, present. Pt agreeable to OT tx. Mental Status/Objective Patient Orientation: Person, Place, Situation Attachments: Chapman Catheter, IV, Oxygen, Telemetry Current Upper Extremity ROM Decreased, BUE shoulder flexion to approx 80 degrees. All movements present bilaterally, but decreased ROM due to weakness. Full PROM BUEs. Upper Extremity Coordination decreased Upper Extremity Strength grossly 2/5 ADL-Treatment Eating (QC): 3 (assist with bringing food to mouth. Pt able to take drink of water with straw.) Lower Body Dressing (QC): 1 (based on clincial judgment, assist x2 required) On/Off Footwear (QC): 1 (total assist to don gripper socks.) Toileting Hygiene (QC): 1 (catheter) Other Treatments Pt in bed, at bedside. Pt and provide information about PLOF and home set up, pt participates in UE screen. Pt has decreased grasp, difficulty holding utensils. OT provided pt with built up foam to place onto utensils, toothbrush, and other items as needed. Pt demonstrated ability to use fork with built up handle to obtain peach from bowl, difficulty raising arm high enough to get food to mouth requiring assistance. Pt and indicate he has been able to grasp water cup and bring to mouth in order to take a drink of water. PT arrived, pt completed bed mobility to EOB, sat EOB for a couple minutes with SBA. Pt states he would like to stand, stood at EOB x2 with second trial scooting up towards HOB. Pt assisted supine. Post tx pt in bed, all needs met, PT present for continued tx. bed mobility and transfers max A x2. SBA seated EOB. Sit to stand max A with a ssistance for line management. Education OT Patient Education: Correct positioning, Energy conservation, Exercise program, Modified ADL techniques, Progress toward Goal/Update tx plan, Purpose of tx/functional activities Teaching Recipient: Patient Teaching Methods: Discussion Response to Teaching: Verbalize Understanding OT Snf Goals Snf Goals Time Frame: Nov 14, 2020 Eating (QC): 5 Oral Hygiene (QC): 5 Toileting Hygiene (QC): 4 Shower/Bathe Self (QC): 4 Upper Body Dressing (QC): 5 Lower Body Dressing (QC): 4 On/Off Footwear (QC): 4 Additional Goals: 1-Demonstrate ADL Tasks, 2-Verbalize Understanding, 3- ImproveStrength/Chris 1=Demonstrate adherence to instructed precautions during ADL tasks. 2=Patient will verbalize/demonstrate understanding of assistive devices/modifications for ADL. 3=Patient will improve strength/tolerance for activity to enable patient to perform ADL's. OT Education/Plan Problem List/Assessment Assessment: Decreased Activ Tolerance, Decreased UE Strength, Impaired Bed Mobility, Impaired Coordination, Impaired Funct Balance, Impaired I ADL's, Impaired Self-Care Skills, Restricted Funct UE ROM Discharge Recommendations Plan/Recommendations: Continue POC Therapy Discharge Recommendati: Home & Family, Post Acute OT Equpiment Recommendations-D/C: Extended Bath Bench, Bath Chair Treatment Plan/Plan of Care Treatment,Training & Education: Yes Patient would benefit from OT for education, treatment and training to promote independence in ADL's, mobility, safety and/or upper extremity function for ADL's. Plan of Care: ADL Retraining, Functional Mobility, UE Funct Exercise/Act Treatment Duration: Nov 14, 2020 Frequency: 5 times per week Estimated Hrs Per Day: .25 hour per day Rehab Potential: Fair Time/GCodes Start Time: 11:20 Stop Time: 11:55 Total Time Billed (hr/min): 35 Billed Treatment Time 1, EVM (15'), FA (20') ALEXANDRU HELMS OT Oct 24, 2020 13:37
[2020-10-24] MEDS: ONDANSETRON 4 MG/2 ML (SDV) Z0FRAN IV PRN (14:09)
--- NOTE | 2020-10-24 14:31 | Progress Note ---
NOEMÍ PASTOR MED STUDENT 10/24/20 1431: Subjective Date Seen by a Provider: Oct 24, 2020 Time Seen by a Provider: 07:45 Subjective/Events-last exam Patient awake and alert. Vapotherm at 30L and 50%. Denies chest pain, headache, fevers, nausea, vomiting. Reports SOB at rest. Reports pain overlying left cheek related to pressure necrosis from ETT melendez. at bedside. Review of Systems General: No Chills, No Night Sweats; Fatigue, Malaise HEENT: No Head Aches, No Visual Changes Pulmonary: Dyspnea; No Cough, No Pleuritic Chest Pain Cardiovascular: No: Chest Pain, Palpitations Gastrointestinal: No: Nausea, Vomiting, Abdominal Pain Genitourinary: No Dysuria, No Frequency; Other (costa) Musculoskeletal: No: neck pain, back pain Neurological: No: Weakness, Numbness Objective Exam Last Set of Vital Signs Vital Signs Date Time Temp Pulse Resp B/P (MAP) Pulse Ox O2 Delivery O2 Flow Rate FiO2 10/24/20 14:17 92 Vapotherm 25.00 40 10/24/20 13:00 93 13 155/101 10/24/20 12:00 37.1 Capillary Refill : Less Than 3 Seconds I&O Intake and Output 10/24/20 00:00 Intake Total 1100 ml Output Total 3570 ml Balance -2470 ml Intake Oral 0 ml IV Total 350 ml Tube Feeding 600 ml Other 150 ml Output Urine Total 3570 ml General: Alert, Oriented X3, Cooperative, Mild Distress HEENT: Atraumatic, PERRLA, EOMI, Other (Nares with bloody crusty secretions bilaterally) Neck: Supple, No LAD Lungs: Other (Diminished throughout. No wheezing or crackles. Borderline tachypneic. ) Heart: Regular Rate, Normal S1, Normal S2 Abdomen: Normal Bowel Sounds, Soft, No Tenderness Extremities: No Clubbing, No Cyanosis, Normal Pulses Skin: No Rashes, Other (Left cheek pressure necrosis ulcer, very superficial, open to air. Black/purple in appearance, minimal erythema around sore. ) Neuro: Sensation Intact, Cranial Nerves 3-12 NL, Other (Generalized weakness of all extremities. ) Psych/Mental Status: Mental Status NL, Mood NL Results Lab Laboratory Tests 10/23/20 17:28: Glucometer 216H 10/23/20 23:41: Blood Gas Puncture Site right radial, Blood Gas Patient Temperature 37.2, Arterial Blood pH 7.48H, Arterial Blood Partial Pressure CO2 38, Arterial Blood Partial Pressure O2 66L, Arterial Blood HCO3 28H, Arterial Blood Total CO2 28.6, Arterial Blood Oxygen Saturation 94, Arterial Blood Base Excess 4.0H, Casper Test YES-POS, Blood Gas Ventilator Setting NO, Blood Gas Inspired Oxygen 50% 10/23/20 23:45: Glucometer 194H 10/24/20 03:20: White Blood Count 6.3, Red Blood Count 4.34, Hemoglobin 11.9#L, Hematocrit 38L, Mean Corpuscular Volume 88, Mean Corpuscular Hemoglobin 27, Mean Corpuscular Hemoglobin Concent 31L, Red Cell Distribution Width 14.5, Platelet Count 208, Mean Platelet Volume 10.3, Immature Granulocyte % (Auto) 1, Neutrophils (%) (Auto) 71, Lymphocytes (%) (Auto) 18, Monocytes (%) (Auto) 7, Eosinophils (%) (Auto) 2, Basophils (%) (Auto) 1, Neutrophils # (Auto) 4.5, Lymphocytes # (Auto) 1.1, Monocytes # (Auto) 0.4, Eosinophils # (Auto) 0.1, Basophils # (Auto) 0.0, Immature Granulocyte # (Auto) 0.1, Sodium Level 138, Potassium Level 3.6, Chloride Level 101, Carbon Dioxide Level 28, Anion Gap 9, Blood Urea Nitrogen 8, Creatinine 0.61, Estimat Glomerular Filtration Rate 144, BUN/Creatinine Ratio 13, Glucose Level 138H, Calcium Level 9.4, Corrected Calcium 10.0, Phosphorus Level 2.3, Magnesium Level 2.0, Total Bilirubin 0.6, Aspartate Amino Transf (AST/SGOT) 82H, Alanine Aminotransferase (ALT/SGPT) 104H, Alkaline Phosphatase 130, Total Protein 7.3, Albumin 3.3 10/24/20 07:01: Glucometer 154H 10/24/20 07:50: Vancomycin Level Trough 14.5 10/24/20 11:21: Glucometer 169H Microbiology 10/19/20 Blood Culture - Preliminary, Resulted No growth 10/13/20 Gram Stain - Final, Complete 10/13/20 Sputum Culture - Final, Complete YEAST Assessment/Plan Assessment/Plan Assess & Plan/Chief Complaint Acute Hypoxic Respiratory Failure -extubated to vapotherm yesterday around 1200 -continues to tolerate well, currently at 30l and 50% COVID-19 PNA -s/p decadron Debility/weakness -PT and OT Possible superimposed bacterial PNA -cefepime and vancomycin -anidulafungin Hypercoagulability secondary to COVID-19 -D dimer elevated at 1.13 on 10-15-20 -lovenox 40mg q12hr Anemia -hgb 11.9 today -continue to monitor New onset Diabetes Mellitus -Hgb A1C of 9 -accuchecks achs, SSI -levemir 20 units subq BID GI PPX -protonix Obesity Hypertriglyceridemia -continue to monitor History of Gout -monitor Tobacco use CYNTHIA LAYNE DO 10/25/20 0544: Subjective Subjective/Events-last exam Patient maintained on Vapotherm at bedside Much improved status Hopefully inpatient rehab will be an option soon Review of Systems General: Fatigue Objective Exam General: Alert, Oriented X3, Cooperative, No Acute Distress Lungs: Clear to Auscultation Heart: Regular Rate Psych/Mental Status: Mental Status NL Assessment/Plan Assessment/Plan Assess & Plan/Chief Complaint Supportive care PT and OT Wean Vapotherm Supervisory-Addendum Brief Verification & Attestation Participated in pt care: history, MDM, physical Personally performed: exam, history, MDM, supervision of care Care discussed with: Medical Student Procedures: n/a Results interpretation: Verified all documentation Verification and Attestation of Medical Student E/M Service A medical student performed and documented this service in my presence. I reviewed and verified all information documented by the medical student and made modifications to such information, when appropriate. I personally performed the physical exam and medical decision making. Cynthia Layne, Oct 25, 2020,05:44 NOEMÍ PASTOR MED STUDENT Oct 24, 2020 14:31 CYNTHIA LAYNE DO Oct 25, 2020 05:44
[2020-10-24] MEDS ORDERED: MELATONIN 3 MG TABLET PO SCH (22:21)
[2020-10-24] MEDS: ACETAMINOPHEN 325 MG TABLET PO PRN (23:55)
[2020-10-25] MEDS: RT-ALBUTEROL/IPRATROPIUM 3 ML (DUONEB) VIAL INH SCH ×6 (02:42→22:12)
[2020-10-25 05:21] LABS: BASOPHILS # (AUTO) 0.1 10^3/uL (0.0-0.1); BASOPHILS % (AUTO) 1 % (0-10); EOSINOPHILS # (AUTO) 0.2 10^3/uL (0.0-0.3); EOSINOPHILS % (AUTO) 4 % (0-10); HEMATOCRIT 38 % (40-54); HEMOGLOBIN 11.9 g/dL (13.3-17.7); LYMPHOCYTES # (AUTO) 1.4 10^3/uL (1.0-4.0); LYMPHOCYTES % (AUTO) 22 % (12-44); MEAN CORPUSCULAR HEMOGLOBIN 27 pg (25-34); MEAN CORPUSCULAR HGB CONC 31 g/dL (32-36); MEAN CORPUSCULAR VOLUME 87 fL (80-99); MEAN PLATELET VOLUME 10.5 fL (9.0-12.2); MONOCYTES # (AUTO) 0.7 10^3/uL (0.0-1.0); MONOCYTES % (AUTO) 10 % (0-12); NEUTROPHILS # (AUTO) 4.2 10^3/uL (1.8-7.8); NEUTROPHILS % (AUTO) 63 % (42-75); PLATELET COUNT 233 10^3/uL (130-400); WHITE BLOOD COUNT 6.6 10^3/uL (4.3-11.0)
[2020-10-25 05:40] LABS: ALBUMIN 3.4 GM/DL (3.2-4.5); POTASSIUM 3.3 MMOL/L (3.6-5.0)
[2020-10-25 05:41] LABS: CALCIUM 9.6 MG/DL (8.5-10.1)
[2020-10-25 05:43] LABS: TOTAL PROTEIN 7.6 GM/DL (6.4-8.2)
[2020-10-25 05:44] LABS: BILIRUBIN,TOTAL 0.6 MG/DL (0.1-1.0)
[2020-10-25 05:46] LABS: CREATININE SERUM 0.67 MG/DL (0.60-1.30)
[2020-10-25 05:49] LABS: MAGNESIUM 1.9 MG/DL (1.6-2.4)
[2020-10-25] MEDS: KCL 20 MEQ TAB (K-DUR) PO SCH (05:50)
[2020-10-25] MEDS: POTASSIUM CL 10MEQ/50ML IVPB 50 ML IV SCH ×5 (05:50→09:17)
[2020-10-25] MEDS: MAGNESIUM 1 GM/100 ML IVPB 100 ML IV SCH (05:50)
[2020-10-25] MEDS: inSUlin ASPART (NovoLOG) 1 UNIT/0.01 ML (CHARGE PER UNIT) SC SCH ×4 (05:51→20:26)
[2020-10-25] MEDS: CEFEPIME INJECTION 1,000 MG in WATER (STERILE) FOR INJECTION 10 ML IV SCH ×2 (06:18→11:11)
[2020-10-25] MEDS: VANCOMYCIN INJECTION 2,000 MG in NS IV 500 ML 500 ML IV SCH (08:13)
[2020-10-25] MEDS: FUROSEMIDE 40 MG/4 ML INJ (LASIX) IVP SCH (08:13)
[2020-10-25] MEDS: LEVOTHYROXINE 75 MCG (LEVOTHROID) TABLET PO SCH (08:13)
[2020-10-25] MEDS: PANTOPRAZOLE 40 MG (PROTONIX) VIAL IV SCH (08:13)
--- NOTE | 2020-10-25 08:25 | Progress Note ---
Subjective Date Seen by a Provider: Oct 25, 2020 Time Seen by a Provider: 13:00 Subjective/Events-last exam Patient doing very well at bedside 5 L of oxygen maintained Transferring to fourth floor Bowels moved yesterday 4 times Hep-Lock IV fluid Review of Systems General: Fatigue, Malaise Pulmonary: Dyspnea Objective Exam Last Set of Vital Signs Vital Signs Date Time Temp Pulse Resp B/P (MAP) Pulse Ox O2 Delivery O2 Flow Rate FiO2 10/25/20 08:00 97 21 136/87 92 High Flow N/C 8.00 10/25/20 04:00 36.2 10/24/20 20:00 50 Capillary Refill : Less Than 3 Seconds I&O Intake and Output 10/25/20 00:00 Intake Total 1490 ml Output Total 3050 ml Balance -1560 ml Intake Oral 740 ml IV Total 750 ml Output Urine Total 3050 ml # Bowel Movements 6 General: Alert, Oriented X3, Cooperative, No Acute Distress Lungs: Clear to Auscultation, Normal Air Movement Heart: Regular Rate Psych/Mental Status: Mental Status NL Results Lab Laboratory Tests 10/24/20 11:21: Glucometer 169H 10/24/20 15:27: Glucometer 178H 10/24/20 20:09: Glucometer 181H 10/25/20 05:12: White Blood Count 6.6, Red Blood Count 4.34, Hemoglobin 11.9L, Hematocrit 38L, Mean Corpuscular Volume 87, Mean Corpuscular Hemoglobin 27, Mean Corpuscular Hemoglobin Concent 31L, Red Cell Distribution Width 14.6H, Platelet Count 233, Mean Platelet Volume 10.5, Immature Granulocyte % (Auto) 1, Neutrophils (%) (Auto) 63, Lymphocytes (%) (Auto) 22, Monocytes (%) (Auto) 10, Eosinophils (%) (Auto) 4, Basophils (%) (Auto) 1, Neutrophils # (Auto) 4.2, Lymphocytes # (Auto) 1.4, Monocytes # (Auto) 0.7, Eosinophils # (Auto) 0.2, Basophils # (Auto) 0.1, Immature Granulocyte # (Auto) 0.1, Sodium Level 140, Potassium Level 3.3L, Chloride Level 101, Carbon Dioxide Level 25, Anion Gap 14, Blood Urea Nitrogen 8, Creatinine 0.67, Estimat Glomerular Filtration Rate 129, BUN/Creatinine Ratio 12, Glucose Level 161H, Calcium Level 9.6, Corrected Calcium 10.1, Phosphorus Level 3.0, Magnesium Level 1.9, Total Bilirubin 0.6, Aspartate Amino Transf (AST/SGOT) 63H, Alanine Aminotransferase (ALT/SGPT) 116H, Alkaline Phosphatase 109, Total Protein 7.6, Albumin 3.4 Microbiology 10/19/20 Blood Culture - Preliminary, Resulted No growth 10/13/20 Gram Stain - Final, Complete 10/13/20 Sputum Culture - Final, Complete YEAST Assessment/Plan Assessment/Plan Assess & Plan/Chief Complaint Assessment: Status post long-term intubation due to acute hypoxic respiratory failure from COVID-19 pneumonia New onset diabetes with hemoglobins A1c of 9.0 New onset hypothyroidism started on supplement Obesity Plan: Moved to fourth floor Wean oxygen Monitor closely Diagnosis/Problems Diagnosis/Problems (1) COVID-19 Status: Acute MIKAELA LAYNE DO Oct 25, 2020 08:25
--- NOTE | 2020-10-25 08:51 | Diagnostic Imaging Report ---
INDICATION: Pneumonia. Comparison made with prior examination of 10/22/2020. FINDINGS: Heart size is normal. There are diffuse bilateral pulmonary infiltrates. No pleural effusion or pneumothorax. Endotracheal tube and nasogastric has been removed IMPRESSION: Slight improvement in the diffuse bilateral airspace disease. Dictated by: Dictated on workstation # [id number]
[2020-10-25] MEDS: ANIDULAFUNGIN INJECTION 100 MG in NS (IVPB) 100 ML IV SCH (09:17)
--- NOTE | 2020-10-25 09:24 | Tele-ICU Progress Note ---
Subjective Date Seen by a Provider: Oct 25, 2020 Time Seen by a Provider: 07:30 Subjective/Events-last exam This virtual visit was conducted using real time audio/video. Thank you for asking us to see this patient for respiratory insufficiency and distress. HPC: Recent events: Down to 5 LPM NC. PE: Obese, comfortable. VSS O2 sat 95 % on 5 LPM. HEENT: No obvious masses, adenopathy or JVD. Chest: clear to auscultation. CV: RRR S1 S2 No murmur or added sounds. Abd: Non-tender. Bowel sounds Y. : Unremarkable. Chapman Y. FIELD MACHINIST/psychiatric: Alert and oriented, grossly intact. No obvious focal findings. Extremities: 2+ edema. Capillary refill < 3 seconds. Skin: unremarkable. Results: unrem. A/P: Respiratory insufficiency/distress: much improved Available chart/ vitals / labs / Images reviewed. Video assessment done using teleICU camera, rest of exam as per RN. Critical Care: critically ill patient, now better. Consider transfer. D/C IVF. Recd ventura earlier. Discussed with OSKAR Keith. Asked RN to reach out to eICU if any questions or concerns later. Time spent with patient/coordination of care with other health professionals (mins): 22 Sepsis Event Evaluation Height, Weight, BMI Height: 5'7.00" Weight: 250lbs. 0oz. [id number]; 40.69 BMI Method:Stated Exam Exam Patient acknowledged, consented, and participated in this virtual visit which was conducted using real time audio/video Vital Signs Date Time Temp Pulse Resp B/P (MAP) Pulse Ox O2 Delivery O2 Flow Rate FiO2 10/25/20 08:30 94 High Flow N/C 5.00 10/25/20 08:25 36.8 10/25/20 08:00 97 21 136/87 92 High Flow N/C 8.00 10/25/20 07:00 96 30 144/96 98 High Flow N/C 8.00 10/25/20 07:00 101 10/25/20 06:55 94 High Flow N/C 6.00 10/25/20 06:00 88 24 132/85 94 High Flow N/C 8.00 10/25/20 05:00 93 28 138/92 95 High Flow N/C 8.00 10/25/20 04:00 95 High Flow N/C 8.00 10/25/20 04:00 91 28 133/82 94 High Flow N/C 8.00 10/25/20 04:00 36.2 10/25/20 03:00 97 26 144/87 94 High Flow N/C 8.00 10/25/20 02:42 96 High Flow N/C 6.00 10/25/20 02:00 86 24 132/96 98 High Flow N/C 8.00 10/25/20 01:00 94 21 152/94 99 High Flow N/C 8.00 10/25/20 01:00 87 10/25/20 00:00 95 High Flow N/C 8.00 10/25/20 00:00 104 13 145/110 96 High Flow N/C 8.00 10/25/20 00:00 36.9 10/24/20 23:34 High Flow N/C 8.00 10/24/20 23:28 96 High Flow N/C 8.00 10/24/20 23:00 98 27 136/92 96 Vapotherm 30.00 45.00 10/24/20 22:00 95 19 144/101 95 Vapotherm 30.00 45.00 10/24/20 21:00 93 15 145/95 95 Vapotherm 30.00 45.00 10/24/20 20:00 95 Vapotherm 25.00 50 10/24/20 20:00 98 13 140/92 97 Vapotherm 30.00 45.00 10/24/20 19:22 36.0 10/24/20 19:09 97 Vapotherm 25.00 50 10/24/20 19:00 80 10/24/20 19:00 99 25 133/90 96 Vapotherm 30.00 45.00 10/24/20 18:00 99 14 155/99 92 Vapotherm 30.00 45.00 10/24/20 17:00 112 18 141/92 93 Vapotherm 30.00 45.00 10/24/20 16:45 94 Vapotherm 30.00 40 10/24/20 16:00 92 11 146/94 96 Vapotherm 30.00 45.00 10/24/20 15:52 37.7 10/24/20 15:00 99 32 125/90 92 Vapotherm 30.00 45.00 10/24/20 14:17 92 Vapotherm 25.00 40 10/24/20 14:00 94 10 136/90 95 Vapotherm 30.00 45.00 10/24/20 13:00 93 13 155/101 90 Vapotherm 30.00 45.00 10/24/20 12:45 94 Vapotherm 30.00 40 10/24/20 12:40 93 10/24/20 12:00 37.1 10/24/20 12:00 93 28 140/98 92 Vapotherm 30.00 45.00 10/24/20 11:00 99 23 134/93 92 Vapotherm 30.00 45.00 10/24/20 10:07 92 Vapotherm 25.00 40 10/24/20 10:00 92 20 128/87 98 Vapotherm 30.00 45.00 10/24/20 09:53 36.6 91 94 I & O 10/25/20 07:00 Intake Total 2890 ml Output Total 2850 ml Balance 40 ml Height & Weight Height: 5'7.00" Weight: 250lbs. 0oz. [id number]; 40.69 BMI Method:Stated General Appearance: No Apparent Distress, WD/WN, Chronically ill, Obese, Other (Sedated and intubated) HEENT: Other (Sedated and endotracheal tube in place) Neck: Full Range of Motion, Normal Inspection, Non Tender, Supple, Carotid Bruit Respiratory: Crackles, Decreased Breath Sounds, Other (INTUBATED, ON VENT) Cardiovascular: Regular Rate, Rhythm, Bradycardia Capillary Refill: Less Than 3 Seconds Peripheral Pulses: 1+ Dorsalis Pedis (R), 1+ Left Dors-Pedis (L) Gastrointestinal: normal bowel sounds, non tender Extremity: Normal Capillary Refill, Normal Inspection, No Pedal Edema, Other (right arm PICC, site look ok) Skin: Normal Color, Warm/Dry Lymphatic: No Adenopathy Results Lab Laboratory Tests 10/24/20 03:20 10/25/20 05:12 Assessment/Plan Assessment/Plan See free text DAY FIELD MD Oct 25, 2020 09:24
[2020-10-25] MEDS: ENOXAPARIN 40 MG/0.4 ML (LOVENOX) SYR SC SCH (11:11)
--- NOTE | 2020-10-25 11:35 | Physical Therapy Daily Note ---
PT Daily Note-Current Subjective Pt. in bed, agrees to therapy. Pt. c/o R ankle/foot pain but no objective pain rating given. Mental Status Patient Orientation: Person, Place, Time, Situation Transfers SCALE: Activities may be completed with or without assistive devices. 2-Ybeigyredg-xqptdbl completes the activity by him/herself with no assistance from a helper. 5-Set-up or Clean-up Assistance-helper sets up or cleans up; patient completes activity. [place]aho assists only prior to or following the activity. 4-Supervision or Touching Assistance-helper provides verbal cues and/or touching/steadying and/or contact guard assistance as patient completes activi ty. Assistance may be provided throughout the activity or intermittently. 3-Partial/Moderate Assistance-helper does LESS THAN HALF the effort. [place]rapaho lifts, holds or supports trunk or limbs, but provides less than half the effort. 2-Substantial/Maximal Assistance-helper does MORE THAN HALF the effort. [place]aho lifts or holds trunk or limbs and provides more than half the effort. 7-Yvfilahyk-wnzsyo does ALL the effort. Patient does none of the effort to complete the activity. Or, the assistance of 2 or more helpers is required for the patient to complete the activity. If activity was not attempted, code reason: 7-Patient Refused. 9-Not Applicable-not attempted and the patient did not perform the activity before the current illness, exacerbation or injury. 10-Not Attempted due to Environmental Limitations-(lack of equipment, weather restraints, etc.). 88-Not Attempted due to Medical Conditions or Safety Concerns. Roll Left & Right (QC): 2 Sit to Lying (QC): 1 Lying to Sitting/Side of Bed(Q: 2 Sit to Stand (QC): 1 Treatments transfer to edge of bed, sitting balance at edge of bed, sit to stand with max A x 2 at edge of bed Assessment Current Status: Good Progress, Fair Progress Pt. had good sitting balance at edge of bed and required assist x 1 to sit up. Pt. sat up for several minutes, O2 sats were >90% during session. Pt. stood at EOB with max A x 2 and FWW. Pt. fatigues very quickly with activity. Pt. c/o dizziness with upright activity and returned to supine position with max A x 2 and to scoot to head of bed. Pt. with all needs met post session. He is making progress with mobility thus far. PT Short Term Goals Short Term Goals Time Frame: Nov 07, 2020 Roll Left & Right: 3 Sit to lyin Lying to sitting on side of be: 3 Sit to stand: 3 Chair/lpy-la-lfymo transfer: 3 Toilet transfer: 3 Walk 10 feet: 2 Does pt use a wc or scooter: No PT Snf Goals Chair Inspector And Leveler Goals PT Chair Inspector And Leveler Goals Time Frame: Dec 05, 2020 Roll Left & Right (QC): 4 Sit to Lying (QC): 4 Lying-Sitting on Side/Bed(QC): 4 Sit to Stand (QC): 4 Chair/Hlt-uc-Wvryv Xfer(QC): 4 Toilet Transfer (QC): 4 Does the Patient Walk: No and Walking Goal IS indicated Walk 10 feet (QC): 4 Walk 50ft with 2 Turns (QC): 4 Walk 150 ft (QC): 3 1 Step (curb) (QC): 3 4 Steps (QC): 3 PT Plan Treatment/Plan Treatment Plan: Continue Plan of Care Treatment Plan: Bed Mobility, Education, Functional Activity Chris, Functional Strength, Group Therapy, Gait, Safety, Therapeutic Exercise, Transfers Treatment Duration: Feb 11, 2021 Frequency: 6 times per week Estimated Hrs Per Day: .25 hour per day Patient and/or Family Agrees t: Yes Time/GCodes Time In: 1020 Time Out: 1045 Total Billed Treatment Time: 25 Total Billed Treatment 1, FA 25' DANNA GIL PT Oct 25, 2020 11:35
[2020-10-25] MEDS: MELATONIN 3 MG TABLET PO SCH (20:35)
[2020-10-25] MEDS ORDERED: MELATONIN 3 MG TABLET PO SCH (21:00)
[2020-10-26] MEDS: ENOXAPARIN 40 MG/0.4 ML (LOVENOX) SYR SC SCH ×2 (00:46→12:22)
[2020-10-26] MEDS: RT-ALBUTEROL/IPRATROPIUM 3 ML (DUONEB) VIAL INH SCH ×6 (02:39→22:55)
[2020-10-26] MEDS: inSUlin ASPART (NovoLOG) 1 UNIT/0.01 ML (CHARGE PER UNIT) SC SCH ×4 (05:39→21:21)
[2020-10-26] MEDS: LEVOTHYROXINE 75 MCG (LEVOTHROID) TABLET PO SCH (05:48)
[2020-10-26 07:36] LABS: BASOPHILS % (AUTO) 1 % (0-10); EOSINOPHILS # (AUTO) 0.4 10^3/uL (0.0-0.3); EOSINOPHILS % (AUTO) 5 % (0-10); HEMATOCRIT 39 % (40-54); HEMOGLOBIN 12.2 g/dL (13.3-17.7); LYMPHOCYTES # (AUTO) 1.8 10^3/uL (1.0-4.0); LYMPHOCYTES % (AUTO) 25 % (12-44); MEAN CORPUSCULAR HEMOGLOBIN 28 pg (25-34); MEAN CORPUSCULAR HGB CONC 32 g/dL (32-36); MEAN CORPUSCULAR VOLUME 87 fL (80-99); MEAN PLATELET VOLUME 10.2 fL (9.0-12.2); MONOCYTES # (AUTO) 0.7 10^3/uL (0.0-1.0); MONOCYTES % (AUTO) 10 % (0-12); NEUTROPHILS # (AUTO) 4.1 10^3/uL (1.8-7.8); NEUTROPHILS % (AUTO) 58 % (42-75); PLATELET COUNT 223 10^3/uL (130-400); WHITE BLOOD COUNT 7.1 10^3/uL (4.3-11.0)
[2020-10-26 07:59] LABS: ALBUMIN 3.6 GM/DL (3.2-4.5); BILIRUBIN,TOTAL 0.6 MG/DL (0.1-1.0); CALCIUM 10.1 MG/DL (8.5-10.1); CREATININE SERUM 0.68 MG/DL (0.60-1.30); POTASSIUM 3.5 MMOL/L (3.6-5.0); TOTAL PROTEIN 7.6 GM/DL (6.4-8.2)
--- NOTE | 2020-10-26 08:00 | Progress Note ---
Subjective Date Seen by a Provider: Oct 26, 2020 Time Seen by a Provider: 11:30 Subjective/Events-last exam Patient doing pretty well Maintain on nasal cannula 5-6 L/min Subtle confusion noted at bedside 06/09 4 therapeutic support Check meds and labs Blood sugars reasonable Right great toe gout is an issue so we will give 1 dose of steroids every morning for 3 days then start allopurinol Review of Systems General: Fatigue, Malaise Pulmonary: Dyspnea Musculoskeletal: foot pain Neurological: Confusion Objective Exam Last Set of Vital Signs Vital Signs Date Time Temp Pulse Resp B/P (MAP) Pulse Ox O2 Delivery O2 Flow Rate FiO2 10/26/20 07:44 37.2 97 24 142/87 94 High Flow N/C 6.00 10/24/20 20:00 50 Capillary Refill : Less Than 3 Seconds I&O Intake and Output 10/26/20 00:00 Intake Total 3930 ml Output Total 2550 ml Balance 1380 ml Intake Oral 3080 ml IV Total 850 ml Output Urine Total 2550 ml General: Alert, Oriented X3, Cooperative, No Acute Distress, Other (Subtle confusion) Lungs: Clear to Auscultation, Normal Air Movement Heart: Regular Rate Extremities: Other ( right great toe erythema with pain to palpation) Psych/Mental Status: Other (Oriented x3 but subtle confusion) Results Lab Laboratory Tests 10/25/20 10:54: Glucometer 198H 10/25/20 15:52: Glucometer 161H 10/25/20 20:20: Glucometer 145H 10/26/20 05:14: Glucometer 140H 10/26/20 07:24: White Blood Count 7.1, Red Blood Count 4.43, Hemoglobin 12.2L, Hematocrit 39L, Mean Corpuscular Volume 87, Mean Corpuscular Hemoglobin 28, Mean Corpuscular Hemoglobin Concent 32, Red Cell Distribution Width 14.6H, Platelet Count 223, Mean Platelet Volume 10.2, Immature Granulocyte % (Auto) 2, Neutrophils (%) (Auto) 58, Lymphocytes (%) (Auto) 25, Monocytes (%) (Auto) 10, Eosinophils (%) (Auto) 5, Basophils (%) (Auto) 1, Neutrophils # (Auto) 4.1, Lymphocytes # (Auto) 1.8, Monocytes # (Auto) 0.7, Eosinophils # (Auto) 0.4H, Basophils # (Auto) 0.0, Immature Granulocyte # (Auto) 0.1, Sodium Level 139, Potassium Level 3.5L, Ch loride Level 100, Carbon Dioxide Level 25, Anion Gap 14, Blood Urea Nitrogen 11, Creatinine 0.68, Estimat Glomerular Filtration Rate 127, BUN/Creatinine Ratio 16, Glucose Level 142H, Calcium Level 10.1, Corrected Calcium 10.4H, Total Bilirubin 0.6, Aspartate Amino Transf (AST/SGOT) 36H, Alanine Aminotransferase (ALT/SGPT) 92H, Alkaline Phosphatase 110, Total Protein 7.6, Albumin 3.6 Microbiology 10/19/20 Blood Culture - Final, Complete No growth 10/13/20 Gram Stain - Final, Complete 10/13/20 Sputum Culture - Final, Complete YEAST Assessment/Plan Assessment/Plan Assess & Plan/Chief Complaint Assessment: Status post long-term intubation due to acute hypoxic respiratory failure from COVID-19 pneumonia New onset diabetes with hemoglobins A1c of 9.0 New onset hypothyroidism started on supplement Obesity Gout 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
[2020-10-26] MEDS: FUROSEMIDE 40 MG/4 ML INJ (LASIX) IVP SCH (08:22)
[2020-10-26] MEDS: PANTOPRAZOLE 40 MG (PROTONIX) TAB PO SCH (08:22)
[2020-10-26] MEDS ORDERED: methylPREDNISolone 40 MG/ML (Solu-MEDROL) VIAL IV ONE (13:30)
[2020-10-26] MEDS ORDERED: OLANZapine 5 MG ODT (ZyPREXA ZYDIS) PO PRN (20:30)
[2020-10-26] MEDS ORDERED: HALOPERIDOL 5 MG/ML (HALDOL) VIAL IM PRN (20:30)
[2020-10-26] MEDS ORDERED: LORazepam INJ 2 MG/ML (ATIVAN) VIAL IVP PRN (20:30)
[2020-10-26] MEDS: MELATONIN 3 MG TABLET PO SCH (21:21)
[2020-10-27] MEDS: ENOXAPARIN 40 MG/0.4 ML (LOVENOX) SYR SC SCH ×3 (00:19→23:02)
[2020-10-27] MEDS: RT-ALBUTEROL/IPRATROPIUM 3 ML (DUONEB) VIAL INH SCH ×6 (02:43→22:41)
[2020-10-27] MEDS: inSUlin ASPART (NovoLOG) 1 UNIT/0.01 ML (CHARGE PER UNIT) SC SCH ×4 (05:45→21:12)
[2020-10-27] MEDS: LEVOTHYROXINE 75 MCG (LEVOTHROID) TABLET PO SCH (06:03)
[2020-10-27 06:29] LABS: BASOPHILS % (AUTO) 1 % (0-10); EOSINOPHILS # (AUTO) 0.1 10^3/uL (0.0-0.3); EOSINOPHILS % (AUTO) 1 % (0-10); HEMATOCRIT 41 % (40-54); LYMPHOCYTES # (AUTO) 2.1 10^3/uL (1.0-4.0); LYMPHOCYTES % (AUTO) 32 % (12-44); MEAN CORPUSCULAR HEMOGLOBIN 27 pg (25-34); MEAN CORPUSCULAR HGB CONC 32 g/dL (32-36); MEAN CORPUSCULAR VOLUME 86 fL (80-99); MEAN PLATELET VOLUME 10.7 fL (9.0-12.2); MONOCYTES # (AUTO) 0.6 10^3/uL (0.0-1.0); MONOCYTES % (AUTO) 10 % (0-12); NEUTROPHILS # (AUTO) 3.5 10^3/uL (1.8-7.8); NEUTROPHILS % (AUTO) 55 % (42-75); PLATELET COUNT 227 10^3/uL (130-400); WHITE BLOOD COUNT 6.4 10^3/uL (4.3-11.0)
[2020-10-27 06:47] LABS: ALBUMIN 3.9 GM/DL (3.2-4.5); POTASSIUM 3.9 MMOL/L (3.6-5.0); SMEAR SCAN COMMENT YES
[2020-10-27 06:48] LABS: CALCIUM 10.6 MG/DL (8.5-10.1)
[2020-10-27 06:49] LABS: TOTAL PROTEIN 8.4 GM/DL (6.4-8.2)
[2020-10-27 06:51] LABS: BILIRUBIN,TOTAL 0.5 MG/DL (0.1-1.0)
[2020-10-27 06:53] LABS: CREATININE SERUM 0.71 MG/DL (0.60-1.30)
[2020-10-27] MEDS: FUROSEMIDE 40 MG/4 ML INJ (LASIX) IVP SCH (08:16)
[2020-10-27] MEDS: PANTOPRAZOLE 40 MG (PROTONIX) TAB PO SCH (08:16)
--- NOTE | 2020-10-27 08:54 | Progress Note ---
SPENCER RICHARDSON MED STUDENT 10/27/20 0854: Subjective Date Seen by a Provider: Oct 27, 2020 Time Seen by a Provider: 07:50 Subjective/Events-last exam Pollo states he is doing well. He says his toe pain is nearly completely gone and he is eager to work with therapy. His states he has been confused, telling stories about gas in the lightbulbs and saying he got up to help Marcial move boxes from an airplane last night. The patient did persist with these stories. His notes he has had some burning pain when urinating since the costa catheter was pulled and expressed concern a UTI could be developing. Objective Exam Last Set of Vital Signs Vital Signs Date Time Temp Pulse Resp B/P (MAP) Pulse Ox O2 Delivery O2 Flow Rate FiO2 10/27/20 08:00 95 High Flow N/C 5.00 10/27/20 08:00 36.9 90 24 131/98 10/24/20 20:00 50 Capillary Refill : Less Than 3 Seconds I&O Intake and Output 10/27/20 00:00 Intake Total 1770 ml Output Total 2025 ml Balance -255 ml Intake Oral 1770 ml Output Urine Total 2025 ml General: Alert, No Acute Distress, Other (on 5L oxygen. Conversational, confused) HEENT: Atraumatic, PERRLA Lungs: Clear to Auscultation, Other (slightly diminished breath sounds bilaterally) Heart: Regular Rate, No Murmurs, Gallops (occasional) Abdomen: Soft, No Tenderness Extremities: No Edema, Normal Pulses, Other (mild swelling of left great toe with minimal tenderness, no erythema.) Skin: No Rashes Psych/Mental Status: Other (pleasant, able to follow conversation. Confabulations. ) Results Lab Laboratory Tests 10/26/20 11:22: Glucometer 185H 10/26/20 17:03: Glucometer 190H 10/26/20 20:12: Glucometer 253H 10/27/20 05:22: Glucometer 103 10/27/20 06:10: White Blood Count 6.4, Red Blood Count 4.78, Hemoglobin 13.0L, Hematocrit 41, Mean Corpuscular Volume 86, Mean Corpuscular Hemoglobin 27, Mean Corpuscular Hemoglobin Concent 32, Red Cell Distribution Width 14.2, Platelet Count 227, Mean Platelet Volume 10.7, Immature Granulocyte % (Auto) 2, Neutrophils (%) (Auto) 55, Lymphocytes (%) (Auto) 32, Monocytes (%) (Auto) 10, Eosinophils (%) (Auto) 1, Basophils (%) (Auto) 1, Neutrophils # (Auto) 3.5, Lymphocytes # (Auto) 2.1, Monocytes # (Auto) 0.6, Eosinophils # (Auto) 0.1, Basophils # (Auto) 0.0, Immature Granulocyte # (Auto) 0.2H, Sodium Level 136, Potassium Level 3.9, Chloride Level 97L, Carbon Dioxide Level 29, Anion Gap 10, Blood Urea Nitrogen 14, Creatinine 0.71, Estimat Glomerular Filtration Rate 121, BUN/Creatinine Ratio 20, Glucose Level 117H, Calcium Level 10.6H, Corrected Calcium 10.7H, Total Bilirubin 0.5, Aspartate Amino Transf (AST/SGOT) 34, Alanine Aminotra nsferase (ALT/SGPT) 86H, Alkaline Phosphatase 101, Total Protein 8.4H, Albumin 3.9, Smear Scan YES Microbiology 10/19/20 Blood Culture - Final, Complete No growth 10/13/20 Gram Stain - Final, Complete 10/13/20 Sputum Culture - Final, Complete YEAST Assessment/Plan Assessment/Plan Assess & Plan/Chief Complaint COVID-19 pneumonia s/p extubation from ventilator on 5L oxygen Non-agitated Delerium, mild -confabulations as well as normal environmental awareness -ddx includes post-icu delerium, steroid induced psychosis, developing UTI. -patient afebrile, normotensive. Monitor for VS changes including fever. Costa catheter was indwelling through his ICU stay and pulled recently, so UA would likely be unreliable at this time. -receiving Solu-Medrol injections for lungs. Consider stopping these if the delerium worsens or pt becomes more agitated working with therapy gout, right podagra -pain resolved. DM2 continue glycemic control DVT/PE prophylaxis CYNTHIA LAYNE DO 10/28/20 0513: Subjective Subjective/Events-last exam Patient doing very well Able to take a shower with help at the bedside Gout pain: Stable discontinue steroids Confusion is from ICU psychosis and cope with residual but will check urinalysis to be sure UTI is not contributing Review of Systems General: Fatigue Musculoskeletal: foot pain Neurological: Confusion Objective Exam General: Alert, No Acute Distress, Other (on 5L oxygen. Conversational, confused) Lungs: Clear to Auscultation, Normal Air Movement Heart: Regular Rate Psych/Mental Status: Other (pleasant, able to follow conversation. Confabulations. 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 I review ed and verified all information documented by the medical student and made modifications to such information, when appropriate. I personally performed the physical exam and medical decision making. Cynthia Layne, Oct 28, 2020,05:08 SPENCER RICHARDSON MED STUDENT Oct 27, 2020 08:54 CYNTHIA LAYNE DO Oct 28, 2020 05:13
[2020-10-27] MEDS ORDERED: methylPREDNISolone 40 MG/ML (Solu-MEDROL) VIAL IV SCH (09:00)
--- NOTE | 2020-10-27 11:43 | Pulmonary Progress Note ---
Subjective Date Seen by a Provider: Oct 27, 2020 Time Seen by a Provider: 11:38 Subjective/Events-last exam Pt on 5l o2; walked to the bathroom with assistance ; no major issues Sepsis Event Evaluation Height, Weight, BMI Height: 5'7.00" Weight: 250lbs. 0oz. [id number]; 40.69 BMI Method:Stated Exam Exam Patient acknowledged, consented, and participated in this virtual visit which was conducted using real time audio/video Vital Signs Date Time Temp Pulse Resp B/P (MAP) Pulse Ox O2 Delivery O2 Flow Rate FiO2 10/27/20 11:02 87 High Flow N/C 5.00 10/27/20 08:00 95 High Flow N/C 5.00 10/27/20 08:00 36.9 90 24 131/98 93 5.00 10/27/20 07:14 High Flow N/C 5.00 10/27/20 07:03 95 High Flow N/C 6.00 10/27/20 04:30 36.6 84 26 120/85 93 High Flow N/C 6.00 10/27/20 02:44 95 High Flow N/C 6.00 10/27/20 00:14 36.7 96 20 120/86 95 High Flow N/C 6.00 10/26/20 22:55 96 High Flow N/C 6.00 10/26/20 20:59 High Flow N/C 6.00 10/26/20 20:00 37.0 98 20 145/89 92 High Flow N/C 6.00 10/26/20 19:16 95 High Flow N/C 6.00 10/26/20 16:00 36.6 94 22 132/98 92 High Flow N/C 6.00 10/26/20 14:23 96 High Flow N/C 6.00 I & O 10/27/20 07:00 Intake Total 1850 ml Output Total 1725 ml Balance 125 ml Height & Weight Height: 5'7.00" Weight: 250lbs. 0oz. [id number]; 40.69 BMI Method:Stated General Appearance: No Apparent Distress, WD/WN, Chronically ill, Obese, Other (Sedated and intubated) HEENT: Other (Sedated and endotracheal tube in place) Neck: Full Range of Motion, Normal Inspection, Non Tender, Supple, Carotid Bruit Respiratory: Crackles, Decreased Breath Sounds, Other (INTUBATED, ON VENT) Cardiovascular: Regular Rate, Rhythm, Bradycardia Capillary Refill: Less Than 3 Seconds Peripheral Pulses: 1+ Dorsalis Pedis (R), 1+ Left Dors-Pedis (L) Gastrointestinal: normal bowel sounds, non tender Extremity: Normal Capillary Refill, Normal Inspection, No Pedal Edema, Other (right arm PICC, site look ok) Skin: Normal Color, Warm/Dry Lymphatic: No Adenopathy Results Lab Laboratory Tests 10/26/20 07:24 10/27/20 06:10 Assessment/Plan Assessment/Plan Acute hypoxemic reps failure sp covid/ extubated -continue o2/ early mobilization/ dvt prophylaxis we will follow SANTIAGO MIRELES MD Oct 27, 2020 11:43
--- NOTE | 2020-10-27 11:45 | Occupational Ther Daily Note ---
OT Current Status-Daily Note Subjective Pt. alert in recliner, family present. Edu. pt on OT's purpose/goals. Pt. agrees to therapy. Mental Status/Objective Patient Orientation: Person, Place, Time, Situation ADL-Treatment Nursing reported showering before session, reports he can complete oral care if she sets up. Therapy Code Descriptions/Definitions Functional [place] Measure: 0=Not Assessed/NA 4=Minimal Assistance 1=Total Assistance 5=Supervision or Setup 2=Maximal Assistance 6=Modified [place] 3=Moderate Assistance 7=Complete IndependenceSCALE: Activities may be completed with or without assistive devices. 2-Mivuwyvtsb-fxhvwsq completes the activity by him/herself with no assistance from a helper. 5-Set-up or Clean-up Assistance-helper sets up or cleans up; patient completes activity. Rodney assists only prior to or following the activity. 4-Supervision or Touching Assistance-helper provides verbal cues and/or touching/steadying and/or contact guard assistance as patient completes activity. Assistance may be provided throughout the activity or intermittently. 3-Partial/Moderate Assistance-helper does LESS THAN HALF the effort. Rodney lifts, holds or supports trunk or limbs, but provides less than half the effort. 2-Substantial/Maximal Assistance-helper does MORE THAN HALF the effort. Rodney lifts or holds trunk or limbs and provides more than half the effort. 3-Bvsblztgf-tjbjri does ALL the effort. Patient does none of the effort to complete the activity. Or, the assistance of 2 or more helpers is required for the patient to complete the activity. If activity was not attempted, code reason: 7-Patient Refused. 9-Not Applicable-not attempted and the patient did not perform the activity before the current illness, exacerbation or injury. 10-Not Attempted due to Environmental Limitations-(lack of equipment, weather restraints, etc.). 88-Not Attempted due to Medical Conditions or Safety Concerns. Oral Hygiene (QC): 5 Shower/Bathe Self (QC): 2 (Per nursing report.) Other Treatment Pt. educated/demonstrated understanding of UE theraband ex's using medium resistance theraband. Pt. able to complete 10 reps 1 set of ea. shoulder horizontal abd/add, bicep curl, elbow extension, abd/add of forearm ex. Pt needed verbal cue for correct breathing strategies to maintain OT levels 90 and above. Skilled instruction for correct technique to increase stamina, and B UE strengthening for daily tasks. ROM/shoulder mobility next session. Pt. in recliner call light/phone in reach. Family and all needs met in room. Education OT Patient Education: Exercise program Teaching Recipient: Patient Teaching Methods: Demonstration, Discussion Response to Teaching: Verbalize Understanding, Return Demonstration, Reinforcement Needed OT Hydraulic Jack Mechanic Goals Hydraulic Jack Mechanic Goals Time Frame: Nov 14, 2020 Eating (QC): 5 Oral Hygiene (QC): 5 Toileting Hygiene (QC): 4 Shower/Bathe Self (QC): 4 Upper Body Dressing (QC): 5 Lower Body Dressing (QC): 4 On/Off Footwear (QC): 4 Additional Goals: 1-Demonstrate ADL Tasks, 2-Verbalize Understanding, 3- ImproveStrength/Chris 1=Demonstrate adherence to instructed precautions during ADL tasks. 2=Patient will verbalize/demonstrate understanding of assistive devices/modifications for ADL. 3=Patient will improve strength/tolerance for activity to enable patient to perform ADL's. OT Education/Plan Problem List/Assessment Assessment: Decreased Activ Tolerance, Decreased UE Strength, Impaired Self- Care Skills, Restricted Funct UE ROM Discharge Recommendations Plan/Recommendations: Continue POC Treatment Plan/Plan of Care Patient would benefit from OT for education, treatment and training to promote independence in ADL's, mobility, safety and/or upper extremity function for ADL's. Plan of Care: ADL Retraining, Functional Mobility, UE Funct Exercise/Act Treatment Duration: Nov 14, 2020 Frequency: 5 times per week Estimated Hrs Per Day: .25 hour per day Rehab Potential: Fair Time/GCodes Start Time: 11:30 Stop Time: 11:50 Total Time Billed (hr/min): 20 Billed Treatment Time 1 visit- 1 EX (20 min) LAURA JACKSON Oct 27, 2020 11:45
--- NOTE | 2020-10-27 14:57 | Physical Therapy Daily Note ---
PT Daily Note-Current Subjective Pt in bathroom upon arrival w/ spouse in room and agrees to tx. Pt spouse explains that pt was saying he wants to get up and walk. Mental Status Attachments: Oxygen (6L) Transfers SCALE: Activities may be completed with or without assistive devices. 2-Xwxtcnmxui-evyltdm completes the activity by him/herself with no assistance from a helper. 5-Set-up or Clean-up Assistance-helper sets up or cleans up; patient completes activity. [place] assists only prior to or following the activity. 4-Supervision or Touching Assistance-helper provides verbal cues and/or touching/steadying and/or contact guard assistance as patient completes activity. Assistance may be provided throughout the activity or intermittently. 3-Partial/Moderate Assistance-helper does LESS THAN HALF the effort. [place] lifts, holds or supports trunk or limbs, but provides less than half the effort. 2-Substantial/Maximal Assistance-helper does MORE THAN HALF the effort. [place] lifts or holds trunk or limbs and provides more than half the effort. 4-Gycrucauh-vdtjld does ALL the effort. Patient does none of the effort to complete the activity. Or, the assistance of 2 or more helpers is required for the patient to complete the activity. If activity was not attempted, code reason: 7-Patient Refused. 9-Not Applicable-not attempted and the patient did not perform the activity before the current illness, exacerbation or injury. 10-Not Attempted due to Environmental Limitations-(lack of equipment, weather restraints, etc.). 88-Not Attempted due to Medical Conditions or Safety Concerns. Sit to Stand (QC): 4 Gait Training Does the Patient Walk?: Yes Distance: 40' x2 Walk 10 feet (QC): 3 Gait Persons Needed: 1 Gait Assistive Device: FWW Treatments Pt in BR upon arrival, pt able to sit to stand and clean self CGA. Pt amb to sink and washes hands, requiring CGA for standing balance. Pt amb 40', requiring ModA d/t LOB. Pt turned to L side and began to have LOB, CLERK OF COURT A pt in correcting. Pt amb to recliner and took seated RB. Pt O2 checked at this time reading 95% on 8L. Pt O2 taken back down to 6L, pt O2 reading 95% at this time. Pt instructed on keeping wide DIMITRIOS w/ amb as well as not crossing LE when turning. Pt sit to stand and amb another 40' in room w/ wider DIMITRIOS and pt had no LOB during second amb. Pt returns to recliner and O2 was taken, reading 93%. Pt stays in recliner at end of tx with all needs met, call light in hand. Assessment Current Status: Fair Progress Pt increasing endurance. With VC, pt able to amb safely w/ 1 person A and FWW. PT Short Term Goals Short Term Goals Time Frame: Nov 07, 2020 Roll Left & Right: 3 Sit to lyin Lying to sitting on side of be: 3 Sit to stand: 3 Chair/rjx-nu-otvad transfer: 3 Toilet transfer: 3 Walk 10 feet: 2 Does pt use a wc or scooter: No PT Fci Goals Fci Goals PT Fci Goals Time Frame: Dec 05, 2020 Roll Left & Right (QC): 4 Sit to Lying (QC): 4 Lying-Sitting on Side/Bed(QC): 4 Sit to Stand (QC): 4 Chair/Uzm-hr-Wmpwh Xfer(QC): 4 Toilet Transfer (QC): 4 Does the Patient Walk: No and Walking Goal IS indicated Walk 10 feet (QC): 4 Walk 50ft with 2 Turns (QC): 4 Walk 150 ft (QC): 3 1 Step (curb) (QC): 3 4 Steps (QC): 3 PT Plan Problem List Problem List: Activity Tolerance, Functional Strength, Safety Treatment/Plan Treatment Plan: Continue Plan of Care Treatment Plan: Bed Mobility, Education, Functional Activity Chris, Functional Strength, Group Therapy, Gait, Safety, Therapeutic Exercise, Transfers Treatment Duration: Feb 11, 2021 Frequency: 6 times per week Estimated Hrs Per Day: .25 hour per day Patient and/or Family Agrees t: Yes Time/GCodes Time In: 1348 Time Out: 1412 Total Billed Treatment Time: 34 Total Billed Treatment 1, FA, GT MERRILL STONE CLERK OF COURT Oct 27, 2020 14:57
[2020-10-27] MEDS: MELATONIN 3 MG TABLET PO SCH (21:10)
[2020-10-28] MEDS: RT-ALBUTEROL/IPRATROPIUM 3 ML (DUONEB) VIAL INH SCH ×2 (02:56→06:45)
[2020-10-28] MEDS: inSUlin ASPART (NovoLOG) 1 UNIT/0.01 ML (CHARGE PER UNIT) SC SCH (05:37)
[2020-10-28] MEDS: LEVOTHYROXINE 75 MCG (LEVOTHROID) TABLET PO SCH (06:20)
[2020-10-28 06:25] LABS: BASOPHILS # (AUTO) 0.1 10^3/uL (0.0-0.1); BASOPHILS % (AUTO) 1 % (0-10); EOSINOPHILS # (AUTO) 0.1 10^3/uL (0.0-0.3); EOSINOPHILS % (AUTO) 2 % (0-10); HEMATOCRIT 39 % (40-54); HEMOGLOBIN 12.1 g/dL (13.3-17.7); LYMPHOCYTES % (AUTO) 41 % (12-44); MEAN CORPUSCULAR HEMOGLOBIN 27 pg (25-34); MEAN CORPUSCULAR HGB CONC 31 g/dL (32-36); MEAN CORPUSCULAR VOLUME 87 fL (80-99); MEAN PLATELET VOLUME 10.5 fL (9.0-12.2); MONOCYTES # (AUTO) 0.6 10^3/uL (0.0-1.0); MONOCYTES % (AUTO) 8 % (0-12); NEUTROPHILS # (AUTO) 3.3 10^3/uL (1.8-7.8); NEUTROPHILS % (AUTO) 46 % (42-75); PLATELET COUNT 209 10^3/uL (130-400); WHITE BLOOD COUNT 7.3 10^3/uL (4.3-11.0)
[2020-10-28 06:36] LABS: ALBUMIN 3.7 GM/DL (3.2-4.5); POTASSIUM 3.5 MMOL/L (3.6-5.0)
[2020-10-28 06:38] LABS: CALCIUM 10.2 MG/DL (8.5-10.1)
[2020-10-28 06:39] LABS: TOTAL PROTEIN 7.8 GM/DL (6.4-8.2)
[2020-10-28 06:41] LABS: BILIRUBIN,TOTAL 0.6 MG/DL (0.1-1.0)
[2020-10-28 06:42] LABS: CREATININE SERUM 0.8 MG/DL (0.60-1.30)
[2020-10-28 06:53] LABS: BILIRUBIN,URINE NEGATIVE (NEGATIVE); CLARITY,URINE CLEAR; COLOR,URINE YELLOW; GLUCOSE, URINE (UA) NEGATIVE (NEGATIVE); KETONES,URINE NEGATIVE (NEGATIVE); LEUKOCYTE ESTERASE ,URINE NEGATIVE (NEGATIVE); NITRITE,URINE NEGATIVE (NEGATIVE); PROTEIN,URINE NEGATIVE (NEGATIVE)
[2020-10-28] MEDS ORDERED: ALLOPURINOL 100 MG (ZYLOPRIM) TAB PO SCH (07:00)
[2020-10-28 07:11] LABS: BACTERIA,URINE NEGATIVE /HPF; RBC,URINE 0-2 /HPF; WBC,URINE 0-2 /HPF
--- NOTE | 2020-10-28 07:39 | Pulmonary Progress Note ---
Subjective Date Seen by a Provider: Oct 28, 2020 Time Seen by a Provider: 07:37 Subjective/Events-last exam O2 decreased form 6 to 5l. Review of Systems Neurological: Weakness Sepsis Event Evaluation Height, Weight, BMI Height: 5'7.00" Weight: 250lbs. 0oz. [id number]; 40.69 BMI Method:Stated Exam Exam Patient acknowledged, consented, and participated in this virtual visit which was conducted using real time audio/video Vital Signs Date Time Temp Pulse Resp B/P (MAP) Pulse Ox O2 Delivery O2 Flow Rate FiO2 10/28/20 06:45 93 High Flow N/C 4.00 10/28/20 03:18 36.6 73 20 131/75 98 High Flow N/C 4.00 10/28/20 02:56 95 High Flow N/C 5.00 10/28/20 00:05 36.5 72 22 136/83 96 High Flow N/C 4.00 10/27/20 22:42 96 High Flow N/C 5.00 10/27/20 20:29 36.3 99 22 130/86 95 High Flow N/C 10/27/20 20:00 95 High Flow N/C 5.00 10/27/20 19:15 96 High Flow N/C 6.00 10/27/20 16:00 36.7 97 20 139/99 96 High Flow N/C 5.00 10/27/20 15:17 97 High Flow N/C 6.00 10/27/20 12:00 37.0 99 22 140/90 95 6.00 10/27/20 11:10 High Flow N/C 6.00 10/27/20 11:02 87 High Flow N/C 5.00 10/27/20 08:00 95 High Flow N/C 5.00 10/27/20 08:00 36.9 90 24 131/98 93 5.00 I & O 10/28/20 07:00 Intake Total 2310 ml Output Total 775 ml Balance 1535 ml Height & Weight Height: 5'7.00" Weight: 250lbs. 0oz. 113.045840so; 40.69 BMI Method:Stated General Appearance: No Apparent Distress, WD/WN, Chronically ill, Obese, Other (Sedated and intubated) HEENT: Other (Sedated and endotracheal tube in place) Neck: Full Range of Motion, Normal Inspection, Non Tender, Supple, Carotid Bruit Respiratory: Crackles, Decreased Breath Sounds, Other (INTUBATED, ON VENT) Cardiovascular: Regular Rate, Rhythm, Bradycardia Capillary Refill: Less Than 3 Seconds Peripheral Pulses: 1+ Dorsalis Pedis (R), 1+ Left Dors-Pedis (L) Gastrointestinal: normal bowel sounds, non tender Extremity: Normal Capillary Refill, Normal Inspection, No Pedal Edema, Other (right arm PICC, site look ok) Skin: Normal Color, Warm/Dry Lymphatic: No Adenopathy Results Lab Laboratory Tests 10/27/20 06:10 10/28/20 06:10 Assessment/Plan Assessment/Plan Acute hypoxemic resp failure in the context of COVID pna -loevnox -high flow O2 4l -PT/OT early mobilization -we will follow SANTIAGO MIRELES MD Oct 28, 2020 07:39
[2020-10-28] MEDS: PANTOPRAZOLE 40 MG (PROTONIX) TAB PO SCH (08:27)
[2020-10-28] MEDS: FUROSEMIDE 40 MG/4 ML INJ (LASIX) IVP SCH (08:27)
--- NOTE | 2020-10-28 09:57 | Discharge Summary ---
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 New onset hypothyroidism started on supplement Obesity Gout with acute gout attack ICU psychosis Discharge Summary Discharge Physical Examination Allergies: Coded Allergies: No Known Drug Allergies (Unverified , 04/02/12) Vitals & I&Os Vital Signs Date Time Temp Pulse Resp B/P (MAP) Pulse Ox O2 Delivery O2 Flow Rate FiO2 10/28/20 15:35 36.6 109 20 125/81 100 High Flow N/C 4.00 10/24/20 20:00 50 General Appearance: Alert, Oriented X3, Cooperative Respiratory: Clear to Auscultation Cardiovascular: Regular Rate Psych/Mental Status: Mental Status NL Hospital Course Was the Problem List Reviewed?: Yes Hospital Course: Pollo Evans is a 45 y.o. M with history of newly diagnosed DM2 (A1C 9%) and gout who received his first dose of Pfizer on 09/23/20, experienced Covid-19 symptoms 09/28/20 with diagnosis that same day, and was later hospitalized in [place] for COVID-19 associated respiratory distress. The patient worsened over night requiring intubation the morning of 10/08/20 and was brought to [facility] ICU. He completed a course of broad spectrum antibiotics for COVID PNA. Antifungal agents were later added after sputum cultures grew fungi. The patient required the vent with PEEP ranging from 14 to 8 until successful extubation on 10/23/20. He tolerated vapotherm on 10/23 and high flow NC on 10/24. The patient was brought to the hospital floor and worked with PT, although he did experience mild post- ventilatory delerium characterized by apocryphal memories which has persisted to IRF admission. [facility] [employer] [employer] Labs (last 24 hrs) Laboratory Tests 10/08/20 10:38: Lab Scanned Report Referred Lab Report 10/08/20 11:16: Glucometer 210H 10/08/20 11:30: Blood Gas Puncture Site LT RAD, Blood Gas Patient Temperature 99.3, Arterial Blood pH 7.39, Arterial Blood Partial Pressure CO2 50H, Arterial Blood Partial Pressure O2 80, Arterial Blood HCO3 29H, Arterial Blood Total CO2 30.6, Arterial Blood Oxygen Saturation 96, Arterial Blood Base Excess 4.5H, Casper Test NA, Blood Gas Ventilator Setting YES, Blood Gas Inspired Oxygen 100% 10/08/20 13:28: White Blood Count 10.4, Red Blood Count 4.55, Hemoglobin 12.3L, Hematocrit 40, Mean Corpuscular Volume 89, Mean Corpuscular Hemoglobin 27, Mean Corpuscular Hemoglobin Concent 31L, Red Cell Distribution Width 14.0, Platelet Count 197, Mean Platelet Volume 11.2, Immature Granulocyte % (Auto) 3, Neutrophils (%) (Auto) 88H, Lymphocytes (%) (Auto) 7L, Monocytes (%) (Auto) 2, Eosinophils (%) (Auto) 0, Basophils (%) (Auto) 0, Neutrophils # (Auto) 9.2H, Lymphocytes # (Auto) 0.7L, Monocytes # (Auto) 0.2, Eosinophils # (Auto) 0.0, Basophils # (Auto) 0.0, Immature Granulocyte # (Auto) 0.3H, Neutrophils % (Manual) 88, Lymphocytes % (Manual) 6, Monocytes % (Manual) 0, Eosinophils % (Manual) 0, Basophils % (Manual) 0, Metamyelocytes % 2, Band Neutrophils 4, Blood Morphology Comment NORMAL, Prothrombin Time 13.8, INR Comment 1.0, Activated Partial Thromboplast Time 33, D-Dimer 0.60H, Sodium Level 137, Potassium Level 4.3, Chloride Level 102, Carbon Dioxide Level 28, Anion Gap 7, Blood Urea Nitrogen 16, Creatinine 0.78, Estimat Glomerular Filtration Rate 108, BUN/Creatinine Ratio 21, Glucose Level 213H, Lactic Acid Level 0.89, Calcium Level 9.1, Corrected Calcium 9.7, Magnesium Level 2.1, Ferritin 2475.0H, Total Bilirubin 0.5, Aspartate Amino Transf (AST/SGOT) 59H, Alanine Aminotransferase (ALT/SGPT) 40, Alkaline Phosphatase 63, Lactate Dehydrogenase 549H, Creatine Kinase MB 1.0, Troponin I < 0.028, C-Reactive Protein High Sensitivity 13.68H, B-Type Natriuretic Peptide 11.1, Total Protein 7.0, Albumin 3.2, Triglycerides Level 279H 10/08/20 17:01: Glucometer 219H 10/08/20 23:08: Glucometer 147H 10/09/20 04:05: White Blood Count 9.3, Red Blood Count 4.43, Hemoglobin 12.0L, Hematocrit 39L, Mean Corpuscular Volume 88, Mean Corpuscular Hemoglobin 27, Mean Corpuscular Hemoglobin Concent 31L, Red Cell Distribution Width 14.2, Platelet Count 220, Mean Platelet Volume 11.3, Immature Granulocyte % (Auto) 5, Neutrophils (%) (Auto) 80H, Lymphocytes (%) (Auto) 12, Monocytes (%) (Auto) 3, Eosinophils (%) (Auto) 0, Basophils (%) (Auto) 0, Neutrophils # (Auto) 7.5, Lymphocytes # (Auto) 1.1, Monocytes # (Auto) 0.3, Eosinophils # (Auto) 0.0, Basophils # (Auto) 0.0, Immature Granulocyte # (Auto) 0.4H, Blood Gas Puncture Site RIGHT RADIAL, Blood Gas Patient Temperature 38.2, Arterial Blood pH 7.38, Arterial Blood Partial Pressure CO2 53H, Arterial Blood Partial Pressure O2 71L, Arterial Blood HCO3 30H, Arterial Blood Total CO2 31.8H, Arterial Blood Oxygen Saturation 91L, Arterial Blood Base Excess 5.5H, Casper Test POSITIVE, Blood Gas Ventilator Setting YES, Blood Gas Inspired Oxygen 90, Sodium Level 143, Potassium Level 3.7, Chloride Level 105, Carbon Dioxide Level 29, Anion Gap 9, Blood Urea Nitrogen 18, Creatinine 0.81, Estimat Glomerular Filtration Rate 104, BUN/Creatinine Ratio 22, Glucose Level 104, Calcium Level 8.9, Corrected Calcium 9.6, Magnesium Level 2.1, Total Bilirubin 0.5, Aspartate Amino Transf (AST/SGOT) 42H, Alanine Aminotransferase (ALT/SGPT) 36, Alkaline Phosphatase 54, Total Protein 6.7, Albumin 3.1L 10/09/20 11:35: Glucometer 147H 10/09/20 17:09: Glucometer 170H 10/09/20 23:52: Glucometer 150H 10/10/20 02:31: White Blood Count 7.3, Red Blood Count 4.31, Hemoglobin 11.8L, Hematocrit 38L, Mean Corpuscular Volume 88, Mean Corpuscular Hemoglobin 27, Mean Corpuscular Hemoglobin Concent 31L, Red Cell Distribution Width 14.1, Platelet Count 251, Mean Platelet Volume 11.1, Immature Granulocyte % (Auto) 6, Neutrophils (%) (Auto) 74, Lymphocytes (%) (Auto) 17, Monocytes (%) (Auto) 4, Eosinophils (%) (Auto) 0, Basophils (%) (Auto) 0, Neutrophils # (Auto) 5.4, Lymphocytes # (Auto) 1.2, Monocytes # (Auto) 0.3, Eosinophils # (Auto) 0.0, Basophils # (Auto) 0.0, Immature Granulocyte # (Auto) 0.4H, Sodium Level 141, Potassium Level 3.7, Chloride Level 107, Carbon Dioxide Level 25, Anion Gap 9, Blood Urea Nitrogen 21H, Creatinine 0.76, Estimat Glomerular Filtration Rate 111, BUN/Creatinine Ratio 28, Glucose Level 138H, Calcium Level 8.6, Magnesium Level 2.1, Triglycerides Level 341H 10/10/20 03:07: Blood Gas Puncture Site L RAD, Blood Gas Patient Temperature 37.5, Arterial Blood pH 7.43, Arterial Blood Partial Pressure CO2 44, Arterial Blood Partial Pressure O2 66L, Arterial Blood HCO3 29H, Arterial Blood Total CO2 29.9, Arterial Blood Oxygen Saturation 92L, Arterial Blood Base Excess 4.5H, Casper Test YES-POS, Blood Gas Ventilator Setting YES, Blood Gas Inspired Oxygen 90% 10/10/20 11:42: Glucometer 199H 10/10/20 17:26: Glucometer 187H 10/10/20 23:43: Glucometer 170H 10/11/20 02:25: White Blood Count 8.7, Red Blood Count 4.50, Hemoglobin 12.4L, Hematocrit 39L, Mean Corpuscular Volume 88, Mean Corpuscular Hemoglobin 28, Mean Corpuscular Hemoglobin Concent 32, Red Cell Distribution Width 14.0, Platelet Count 268, Mean Platelet Volume 10.8, Immature Granulocyte % (Auto) 6, Neutrophils (%) (Auto) 72, Lymphocytes (%) (Auto) 18, Monocytes (%) (Auto) 4, Eosinophils (%) (Auto) 0, Basophils (%) (Auto) 0, Neutrophils # (Auto) 6.2, Lymphocytes # (Auto) 1.6, Monocytes # (Auto) 0.3, Eosinophils # (Auto) 0.0, Basophils # (Auto) 0.0, Immature Granulocyte # (Auto) 0.6H, Sodium Level 138, Potassium Level 3.7, Chloride Level 103, Carbon Dioxide Level 26, Anion Gap 9, Blood Urea Nitrogen 19H, Creatinine 0.75, Estimat Glomerular Filtration Rate 113, BUN/Creatinine Ratio 25, Glucose Level 206H, Calcium Level 8.6, Magnesium Level 2.0 10/11/20 04:24: Blood Gas Puncture Site R RAD, Blood Gas Patient Temperature 37.8, Arterial Bloo d pH 7.44H, Arterial Blood Partial Pressure CO2 45, Arterial Blood Partial Pressure O2 79, Arterial Blood HCO3 30H, Arterial Blood Total CO2 31.2H, Arterial Blood Oxygen Saturation 94, Arterial Blood Base Excess 5.9H, Casper Test YES-POS, Blood Gas Ventilator Setting YES, Blood Gas Inspired Oxygen 90% 10/11/20 05:37: Glucometer 205H 10/11/20 11:09: Glucometer 198H 10/11/20 11:10: Urine Color DARK YELLOW, Urine Clarity CLEAR, Urine pH 6.0, Urine Specific [place] 1.020, Urine Protein NEGATIVE, Urine Glucose (UA) NEGATIVE, Urine Ketones NEGATIVE, Urine Nitrite NEGATIVE, Urine Bilirubin NEGATIVE, Urine Urobilinogen 1.0, Urine Leukocyte Esterase NEGATIVE, Urine RBC (Auto) NEGATIVE, Urine RBC 0-2, Urine WBC 2-5, Urine Squamous Epithelial Cells NONE, Urine Crystals NONE, Urine Bacteria FEWH, Urine Casts NONE, Urine Mucus NEGATIVE, Urine Yeast MODERATEH, Urine Culture Indicated NO 10/11/20 17:16: Glucometer 187H 10/11/20 23:44: Glucometer 159H 10/12/20 02:10: White Blood Count 10.0, Red Blood Count 4.80, Hemoglobin 13.0L, Hematocrit 42, Mean Corpuscular Volume 88, Mean Corpuscular Hemoglobin 27, Mean Corpuscular Hemoglobin Concent 31L, Red Cell Distribution Width 13.9, Platelet Count 285, Mean Platelet Volume 11.0, Immature Granulocyte % (Auto) 5, Neutrophils (%) (Auto) 74, Lymphocytes (%) (Auto) 17, Monocytes (%) (Auto) 3, Eosinophils (%) (Auto) 1, Basophils (%) (Auto) 0, Neutrophils # (Auto) 7.4, Lymphocytes # (Auto) 1.7, Monocytes # (Auto) 0.3, Eosinophils # (Auto) 0.1, Basophils # (Auto) 0.0, Immature Granulocyte # (Auto) 0.5H, Sodium Level 140, Potassium Level 4.0, Chloride Level 103, Carbon Dioxide Level 27, Anion Gap 10, Blood Urea Nitrogen 18, Creatinine 0.73, Estimat Glomerular Filtration Rate 117, BUN/Creatinine Ratio 25, Glucose Level 143H, Calcium Level 9.2, Magnesium Level 2.2, Triglycerides Level 406#H 10/12/20 04:55: Blood Gas Puncture Site R RAD, Blood Gas Patient Temperature 38, Arterial Blood pH 7.43, Arterial Blood Partial Pressure CO2 47H, Arterial Blood Partial Pressure O2 79, Arterial Blood HCO3 30H, Arterial Blood Total CO2 31.4H, Arterial Blood Oxygen Saturation 95, Arterial Blood Base Excess 5.9H, Casper Test YES-POS, Blood Gas Ventilator Setting YES, Blood Gas Inspired Oxygen 80% 10/12/20 11:46: Glucometer 245H 10/12/20 17:19: Glucometer 237H 10/12/20 22:54: Glucometer 175H 10/13/20 03:25: White Blood Count 10.5, Red Blood Count 4.62, Hemoglobin 12.6L, Hematocrit 41, Mean Corpuscular Volume 89, Mean Corpuscular Hemoglobin 27, Mean Corpuscular Hemoglobin Concent 31L, Red Cell Distribution Width 14.0, Platelet Count 272, Mean Platelet Volume 11.1, Immature Granulocyte % (Auto) 5, Neutrophils (%) (Auto) 75, Lymphocytes (%) (Auto) 17, Monocytes (%) (Auto) 2, Eosinophils (%) (Auto) 1, Basophils (%) (Auto) 0, Neutrophils # (Auto) 7.9H, Lymphocytes # (Auto) 1.8, Monocytes # (Auto) 0.3, Eosinophils # (Auto) 0.1, Basophils # (Auto) 0.0, Immature Granulocyte # (Auto) 0.5H, Blood Gas Puncture Site LEFT RAD, Blood Gas Patient Temperature 38.1, Arterial Blood pH 7.39, Arterial Blood Partial Pressure CO2 50H, Arterial Blood Partial Pressure O2 94H, Arterial Blood HCO3 29H, Arterial Blood Total CO2 30.6, Arterial Blood Oxygen Saturation 97, Arterial Blood Base Excess 4.7H, Casper Test YES-POS, Blood Gas Ventilator Setting YES, Blood Gas Inspired Oxygen 95%, Sodium Level 138, Potassium Level 4.3, Chloride Level 102, Carbon Dioxide Level 26, Anion Gap 10, Blood Urea Nitrogen 18, Creatinine 0.74, Estimat Glomerular Filtration Rate 115, BUN/Creatinine Ratio 24, Glucose Level 165H, Calcium Level 9.1, Magnesium Level 2.2, Total Bilirubin 0.5, Direct Bilirubin 0.2, Indirect Bilirubin 0.3, Aspartate Amino Transf (AST/SGOT) 43H, Alanine Aminotransferase (ALT/SGPT) 52, Alkaline Phosphatase 67, Total Protein 7.5, Albumin 3.1L, Procalcitonin 0.10H 10/13/20 11:22: Glucometer 263H 10/13/20 16:34: Glucometer 293H 10/13/20 17:45: Glucometer 239H 10/13/20 23:19: Glucometer 185H 10/14/20 02:50: Blood Gas Puncture Site R RAD, Blood Gas Patient Temperature 38, Arterial Blood pH 7.41, Arterial Blood Partial Pressure CO2 50H, Arterial Blood Partial Pressure O2 76L, Arterial Blood HCO3 30H, Arterial Blood Total CO2 31.9H, Arterial Blood Oxygen Saturation 94, Arterial Blood Base Excess 6.0H, Casper Test YES-POS, Blood Gas Ventilator Setting YES, Blood Gas Inspired Oxygen 85% 10/14/20 03:45: White Blood Count 9.6, Red Blood Count 4.60, Hemoglobin 12.6L, Hematocrit 42, Mean Corpuscular Volume 92, Mean Corpuscular Hemoglobin 27, Mean Corpuscular Hemoglobin Concent 30L, Red Cell Distribution Width 13.5, Platelet Count 261, Mean Platelet Volume 11.3, Immature Granulocyte % (Auto) 4, Neutrophils (%) (Auto) 77H, Lymphocytes (%) (Auto) 14, Monocytes (%) (Auto) 4, Eosinophils (%) (Auto) 1, Basophils (%) (Auto) 0, Neutrophils # (Auto) 7.4, Lymphocytes # (Auto) 1.4, Monocytes # (Auto) 0.3, Eosinophils # (Auto) 0.1, Basophils # (Auto) 0.0, Immature Granulocyte # (Auto) 0.4H 10/14/20 06:10: Sodium Level 138, Potassium Level 4.2, Chloride Level 103, Carbon Dioxide Level 25, Anion Gap 10, Blood Urea Nitrogen 21H, Creatinine 0.76, Estimat Glomerular Filtration Rate 111, BUN/Creatinine Ratio 28, Glucose Level 169H, Calcium Level 9.3, Magnesium Level 2.2, Triglycerides Level 284H 10/14/20 11:44: Glucometer 242H 10/14/20 17:46: Glucometer 257H 10/14/20 23:02: Glucometer 178H 10/15/20 03:05: White Blood Count 9.1, Red Blood Count 4.38, Hemoglobin 11.9L, Hematocrit 39L, Mean Corpuscular Volume 89, Mean Corpuscular Hemoglobin 27, Mean Corpuscular Hemoglobin Concent 31L, Red Cell Distribution Width 13.6, Platelet Count 258, Mean Platelet Volume 11.6, Immature Granulocyte % (Auto) 2, Neutrophils (%) (Auto) 71, Lymphocytes (%) (Auto) 22, Monocytes (%) (Auto) 4, Eosinophils (%) (Auto) 1, Basophils (%) (Auto) 0, Neutrophils # (Auto) 6.4, Lymphocytes # (Auto) 2.0, Monocytes # (Auto) 0.4, Eosinophils # (Auto) 0.1, Basophils # (Auto) 0.0, Immature Granulocyte # (Auto) 0.2H, D-Dimer 1.13H, Blood Gas Puncture Site R RADIAL, Blood Gas Patient Temperature 37, Arterial Blood pH 7.43, Arterial Blood Partial Pressure CO2 50H, Arterial Blood Partial Pressure O2 175H, Arterial Blo od HCO3 32H, Arterial Blood Total CO2 33.4H, Arterial Blood Oxygen Saturation 100, Arterial Blood Base Excess 7.6H, Capser Test YES-POS, Blood Gas Ventilator Setting YES, Blood Gas Inspired Oxygen 80%, Sodium Level 138, Potassium Level 4.9, Chloride Level 102, Carbon Dioxide Level 26, Anion Gap 10, Blood Urea Nitrogen 20H, Creatinine 0.69, Estimat Glomerular Filtration Rate 125, BUN/Creatinine Ratio 29, Glucose Level 153H, Lactic Acid Level 1.37, Calcium Level 8.9, Magnesium Level 2.1, Total Bilirubin 0.4, Direct Bilirubin 0.1, Indirect Bilirubin 0.3, Aspartate Amino Transf (AST/SGOT) 29, Alanine Aminotransferase (ALT/SGPT) 46, Alkaline Phosphatase 77, Total Protein 7.3, Albumin 3.0L, Lipase 79H, Thyroid Stimulating Hormone (TSH) 6.99H 10/15/20 11:07: Glucometer 264H 10/15/20 17:33: Glucometer 239H 10/15/20 19:52: Glucometer 210H 10/15/20 23:28: Glucometer 153H 10/16/20 03:25: White Blood Count 11.0, Red Blood Count 4.36, Hemoglobin 11.9L, Hematocrit 39L, Mean Corpuscular Volume 89, Mean Corpuscular Hemoglobin 27, Mean Corpuscular Hemoglobin Concent 31L, Red Cell Distribution Width 13.6, Platelet Count 268, Mean Platelet Volume 11.0, Immature Granulocyte % (Auto) 1, Neutrophils (%) (Auto) 73, Lymphocytes (%) (Auto) 19, Monocytes (%) (Auto) 5, Eosinophils (%) (Auto) 1, Basophils (%) (Auto) 0, Neutrophils # (Auto) 8.1H, Lymphocytes # (Auto) 2.1, Monocytes # (Auto) 0.6, Eosinophils # (Auto) 0.1, Basophils # (Auto) 0.0, Immature Granulocyte # (Auto) 0.1, Blood Gas Puncture Site RIGHT RADIAL, Blood Gas Patient Temperature 36.9, Arterial Blood pH 7.40, Arterial Blood Partial Pressure CO2 54H, Arterial Blood Partial Pressure O2 71L, Arterial Blood HCO3 33H, Arterial Blood Total CO2 34.4H, Arterial Blood Oxygen Saturation 93L, Arterial Blood Base Excess 7.8H, Casper Test POSITIVE, Blood Gas Ventilator Setting YES, Blood Gas Inspired Oxygen 60, Sodium Level 140, Potassium Level 3.9, Chloride Level 101, Carbon Dioxide Level 27, Anion Gap 12, Blood Urea Nitrogen 19H, Creatinine 0.68, Estimat Glomerular Filtration Rate 127, BUN/Cre atinine Ratio 28, Glucose Level 113H, Calcium Level 9.3, Magnesium Level 2.1, Triglycerides Level 288H 10/16/20 10:14: Glucometer 199H 10/16/20 12:36: Glucometer 271H 10/16/20 17:47: Glucometer 286H 10/16/20 23:20: Glucometer 213H 10/17/20 03:08: White Blood Count 8.0, Red Blood Count 4.05L, Hemoglobin 11.0L, Hematocrit 37L, Mean Corpuscular Volume 91, Mean Corpuscular Hemoglobin 27, Mean Corpuscular H emoglobin Concent 30L, Red Cell Distribution Width 13.8, Platelet Count 267, Mean Platelet Volume 11.0, Immature Granulocyte % (Auto) 1, Neutrophils (%) (Auto) 80H, Lymphocytes (%) (Auto) 13, Monocytes (%) (Auto) 5, Eosinophils (%) (Auto) 0, Basophils (%) (Auto) 0, Neutrophils # (Auto) 6.4, Lymphocytes # (Auto) 1.1, Monocytes # (Auto) 0.4, Eosinophils # (Auto) 0.0, Basophils # (Auto) 0.0, Immature Granulocyte # (Auto) 0.1, Sodium Level 138, Potassium Level 4.2, Chloride Level 101, Carbon Dioxide Level 27, Anion Gap 10, Blood Urea Nitrogen 14, Creatinine 0.72, Estimat Glomerular Filtration Rate 119, BUN/Creatinine Ratio 19, Glucose Level 231H, Calcium Level 9.1, Magnesium Level 2.1 10/17/20 03:12: Blood Gas Puncture Site LEFT RADIAL, Blood Gas Patient Temperature 37.1, Arterial Blood pH 7.37, Arterial Blood Partial Pressure CO2 53H, Arterial Blood Partial Pressure O2 97H, Arterial Blood HCO3 30H, Arterial Blood Total CO2 31.6H , Arterial Blood Oxygen Saturation 98, Arterial Blood Base Excess 5.0H, Casper Test YES-POS, Blood Gas Ventilator Setting YES, Blood Gas Inspired Oxygen 60% 10/17/20 11:43: Glucometer 284H 10/17/20 17:37: Glucometer 333H 10/17/20 20:34: Glucometer 280H 10/18/20 00:23: Glucometer 249H 10/18/20 03:45: White Blood Count 6.9, Red Blood Count 3.48L, Hemoglobin 9.5L, Hematocrit 31L, Mean Corpuscular Volume 90, Mean Corpuscular Hemoglobin 27, Mean Corpuscular Hemoglobin Concent 30L, Red Cell Distribution Width 13.8, Platelet Count 215, Mean Platelet Volume 11.4, Immature Granulocyte % (Auto) 1, Neutrophils (%) (Auto) 74, Lymphocytes (%) (Auto) 20, Monocytes (%) (Auto) 6, Eosinophils (%) (Auto) 0, Basophils (%) (Auto) 0, Neutrophils # (Auto) 5.1, Lymphocytes # (Auto) 1.4, Monocytes # (Auto) 0.4, Eosinophils # (Auto) 0.0, Basophils # (Auto) 0.0, Immature Granulocyte # (Auto) 0.1, Blood Gas Puncture Site R RADIAL, Blood Gas Patient Temperature 38.2, Arterial Blood pH 7.41, Arterial Blood Partial Pressure CO2 57H, Arterial Blood Partial Pressure O2 84, Arterial Blood HCO3 35H , Arterial Blood Total CO2 36.4H, Arterial Blood Oxygen Saturation 94, Arterial Blood Base Excess 10.1H, Casper Test YES-POS, Blood Gas Ventilator Setting YES, Blood Gas Inspired Oxygen 20, Sodium Level 142, Potassium Level 3.3L, Chloride Level 109H, Carbon Dioxide Level 25, Anion Gap 8, Blood Urea Nitrogen 16, Creatinine 0.56L, Estimat Glomerular Filtration Rate 158, BUN/Creatinine Ratio 29, Glucose Level 174H, Calcium Level 7.0L, Magnesium Level 1.7 10/18/20 11:41: Glucometer 248H 10/18/20 17:30: Glucometer 245H 10/18/20 23:12: Glucometer 189H 10/19/20 03:37: White Blood Count 10.7, Red Blood Count 4.07L, Hemoglobin 11.0L, Hematocrit 37L, Mean Corpuscular Volume 91, Mean Corpuscular Hemoglobin 27, Mean Corpuscular Hemoglobin Concent 30L, Red Cell Distribution Width 14.4, Platelet Count 261, Mean Platelet Volume 10.8, Immature Granulocyte % (Auto) 1, Neutrophils (%) (Auto) 66, Lymphocytes (%) (Auto) 27, Monocytes (%) (Auto) 6, Eosinophils (%) (Auto) 1, Basophils (%) (Auto) 0, Neutrophils # (Auto) 7.0, Lymphocytes # (Auto) 2.9, Monocytes # (Auto) 0.6, Eosinophils # (Auto) 0.1, Basophils # (Auto) 0.0, Immature Granulocyte # (Auto) 0.1, Sodium Level 141, Potassium Level 3.4L, Chloride Level 106, Carbon Dioxide Level 26, Anion Gap 9, Blood Urea Nitrogen 22H, Creatinine 0.67, Estimat Glomerular Filtration Rate 129, BUN/Creatinine Ratio 33, Glucose Level 188H, Calcium Level 8.0L, Corrected Calcium 9.0, Phosphorus Level 3.7, Magnesium Level 1.9, Total Bilirubin 0.7, Aspartate Amino Transf (AST/SGOT) 19, Alanine Aminotransferase (ALT/SGPT) 31, Alkaline Phosphatase 62, Total Protein 6.2L, Albumin 2.8L 10/19/20 03:48: Blood Gas Puncture Site RIGHT RADIAL, Blood Gas Patient Temperature 37.5, Arterial Blood pH 7.38, Arterial Blood Partial Pressure CO2 53H, Arterial Blood Partial Pressure O2 70L, Arterial Blood HCO3 30H, Arterial Blood Total CO2 31.9H , Arterial Blood Oxygen Saturation 93L, Arterial Blood Base Excess 5.5H, Casper Test YES-POS, Blood Gas Ventilator Setting YES, Blood Gas Inspired Oxygen 40% 10/19/20 12:00: Glucometer 303H 10/19/20 17:42: Glucometer 245H 10/19/20 19:46: Glucometer 208H 10/19/20 22:10: Urine Color REDH, Urine Clarity CLOUDY, Urine pH 5.0, Urine Specific [place] 1.020, Urine Protein 3+H, Urine Glucose (UA) TRACEH, Urine Ketones 1+H, Urine Nitrite POSITIVEH, Urine Bilirubin NEGATIVE, Urine Urobilinogen 4.0, Urine Leukocyte Esterase 2+H, Urine RBC (Auto) 3+H, Urine RBC TNTCH, Urine WBC RARE, Urine Crystals NONE, Urine Bacteria NEGATIVE, Urine Casts NONE, Urine Mucus NEGATIVE, Urine Culture Indicated NO 10/19/20 22:55: Lactic Acid Level 1.02, Procalcitonin 0.07 10/19/20 23:45: Glucometer 239H 10/20/20 03:00: White Blood Count 7.3, Red Blood Count 4.09L, Hemoglobin 11.1L, Hematocrit 37L, Mean Corpuscular Volume 90, Mean Corpuscular Hemoglobin 27, Mean Corpuscular Hemoglobin Concent 30L, Red Cell Distribution Width 14.3, Platelet Count 245, Mean Platelet Volume 11.4, Immature Granulocyte % (Auto) 1, Neutrophils (%) (Auto) 69, Lymphocytes (%) (Auto) 23, Monocytes (%) (Auto) 6, Eosinophils (%) (Auto) 1, Basophils (%) (Auto) 0, Neutrophils # (Auto) 5.0, Lymphocytes # (Auto) 1.7, Monocytes # (Auto) 0.5, Eosinophils # (Auto) 0.1, Basophils # (Auto) 0.0, Immature Granulocyte # (Auto) 0.0, Blood Gas Puncture Site LEFT RADIAL, Blood Gas Patient Temperature 37.0, Arterial Blood pH 7.42, Arterial Blood Partial Pressure CO2 48H, Arterial Blood Partial Pressure O2 71L, Arterial Blood HCO3 30H, Arterial Blood Total CO2 31.7H, Arterial Blood Oxygen Saturation 95, Arterial Blood Base Excess 5.8H, Casper Test YES-POS, Blood Gas Ventilator Setting YES, Blood Gas Inspired Oxygen 40%, Sodium Level 138, Potassium Level 3.7, Chloride Level 102, Carbon Dioxide Level 28, Anion Gap 8, Blood Urea Nitrogen 22H, Creatinine 0.70, Estimat Glomerular Filtration Rate 123, BUN/Creatinine Ratio 31, Glucose Level 266H, Calcium Level 9.1, Corrected Calcium 9.8, Phosphorus Level 3.1, Magnesium Level 2.1, Total Bilirubin 0.7, Aspartate Amino Transf (AST/SGOT) 23, Alanine Aminotransferase (ALT/SGPT) 37, Alkaline Phosphatase 91, Total Protein 6.9, Albumin 3.1L 10/20/20 11:40: Glucometer 281H 10/20/20 17:32: Glucometer 267H 10/20/20 20:22: Glucometer 255H 10/21/20 00:12: Glucometer 228H 10/21/20 04:10: White Blood Count 6.2, Red Blood Count 3.90L, Hemoglobin 10.7L, Hematocrit 35L, Mean Corpuscular Volume 90, Mean Corpuscular Hemoglobin 27, Mean Corpuscular Hemoglobin Concent 30L, Red Cell Distribution Width 14.6H, Platelet Count 219, Mean Platelet Volume 11.0, Immature Granulocyte % (Auto) 1, Neutrophils (%) (Auto) 77H, Lymphocytes (%) (Auto) 15, Monocytes (%) (Auto) 5, Eosinophils (%) (Auto) 3, Basophils (%) (Auto) 0, Neutrophils # (Auto) 4.8, Lymphocytes # (Auto) 0.9L, Monocytes # (Auto) 0.3, Eosinophils # (Auto) 0.2, Basophils # (Auto) 0.0, Immature Granulocyte # (Auto) 0.0, Neutrophils % (Manual) 84, Lymphocytes % (Manual) 9, Monocytes % (Manual) 6, Eosinophils % (Manual) 1, Blood Morphology Comment NORMAL, Sodium Level 140, Potassium Level 4.0, Chloride Level 103, Carbon Dioxide Level 29, Anion Gap 8, Blood Urea Nitrogen 18, Creatinine 0.63, Estimat Glomerular Filtration Rate 138, BUN/Creatinine Ratio 29, Glucose Level 240H, Calcium Level 9.3, Corrected Calcium 10.1, Phosphorus Level 3.0, Magnesium Level 2.1, Total Bilirubin 0.4, Aspartate Amino Transf (AST/SGOT) 25, Alanine Aminotransferase (ALT/SGPT) 37, Alkaline Phosphatase 80, Total Protein 6.7, Albumin 3.0L, Triglycerides Level 178H 10/21/20 04:15: Blood Gas Puncture Site LEFT RADIAL, Blood Gas Patient Temperature 37.0, Arterial Blood pH 7.41, Arterial Blood Partial Pressure CO2 49H, Arterial Blood Partial Pressure O2 80, Arterial Blood HCO3 30H, Arterial Blood Total CO2 31.8H, Arterial Blood Oxygen Saturation 96, Arterial Blood Base Excess 5.7H, [place] Test YES-POS, Blood Gas Ventilator Setting YES, Blood Gas Inspired Oxygen 60% 10/21/20 11:46: Glucometer 201H 10/21/20 17:26: Glucometer 208H 10/21/20 23:34: Glucometer 191H 10/22/20 04:05: White Blood Count 4.9, Red Blood Count 4.08L, Hemoglobin 11.0L, Hematocrit 37L, Mean Corpuscular Volume 90, Mean Corpuscular Hemoglobin 27, Mean Corpuscular Hemoglobin Concent 30L, Red Cell Distribution Width 14.3, Platelet Count 201, Mean Platelet Volume 11.3, Immature Granulocyte % (Auto) 1, Neutrophils (%) (Auto) 61, Lymphocytes (%) (Auto) 28, Monocytes (%) (Auto) 6, Eosinophils (%) (Auto) 4, Basophils (%) (Auto) 0, Neutrophils # (Auto) 3.0, Lymphocytes # (Auto) 1.3, Monocytes # (Auto) 0.3, Eosinophils # (Auto) 0.2, Basophils # (Auto) 0.0, Immature Granulocyte # (Auto) 0.0, Sodium Level 141, Potassium Level 4.0, Chloride Level 104, Carbon Dioxide Level 27, Anion Gap 10, Blood Urea Nitrogen 14, Creatinine 0.67, Estimat Glomerular Filtration Rate 129, BUN/Creatinine Ratio 21, Glucose Level 234H, Calcium Level 9.2, Corrected Calcium 10.0, Phosphorus Level 3.0, Magnesium Level 1.9, Total Bilirubin 0.5, Aspartate Amino Transf (AST/SGOT) 24, Alanine Aminotransferase (ALT/SGPT) 33, Alkaline Phosphatase 80, Total Protein 6.7, Albumin 3.0L 10/22/20 06:15: Blood Gas Puncture Site RIGHT RADIAL, Blood Gas Patient Temperature 37.3, Arterial Blood pH 7.46H, Arterial Blood Partial Pressure CO2 43, Arterial Blood Partial Pressure O2 69L, Arterial Blood HCO3 30H, Arterial Blood Total CO2 31.5H , Arterial Blood Oxygen Saturation 94, Arterial Blood Base Excess 6.3H, [place] Test YES-POS, Blood Gas Ventilator Setting YES, Blood Gas Inspired Oxygen 55% 10/22/20 08:15: Vancomycin Level Trough 11.6 10/22/20 11:59: Glucometer 188H 10/22/20 17:51: Glucometer 208H 10/22/20 23:21: Glucometer 220H 10/23/20 01:23: Glucometer 244H 10/23/20 03:10: White Blood Count 3.4L, Red Blood Count 3.35L, Hemoglobin 9.1L, Hematocrit 30L, Mean Corpuscular Volume 90, Mean Corpuscular Hemoglobin 27, Mean Corpuscular Hemoglobin Concent 30L, Red Cell Distribution Width 14.7H, Platelet Count 177, Mean Platelet Volume 11.2, Immature Granulocyte % (Auto) 1, Neutrophils (%) (Auto) 58, Lymphocytes (%) (Auto) 27, Monocytes (%) (Auto) 10, Eosinophils (%) (Auto) 4, Basophils (%) (Auto) 1, Neutrophils # (Auto) 2.0, Lymphocytes # (Auto) 0.9L, Monocytes # (Auto) 0.3, Eosinophils # (Auto) 0.1, Basophils # (Auto) 0.0, Immature Granulocyte # (Auto) 0.0, Sodium Level 139, Potassium Level 3.4L, Chloride Level 107, Carbon Dioxide Level 24, Anion Gap 8, Blood Urea Nitrogen 10, Creatinine 0.56L, Estimat Glomerular Filtration Rate 158, BUN/Creatinine Ratio 18, Glucose Level 219H, Calcium Level 7.8L, Corrected Calcium 8.9, Phosphorus Level 2.7, Magnesium Level 1.6, Total Bilirubin 0.4, Aspartate Amino Transf (AST/SGOT) 26, Alanine Aminotransferase (ALT/SGPT) 37, Alkaline Phosphatase 66, Total Protein 5.6L, Albumin 2.6L 10/23/20 03:50: Blood Gas Puncture Site LEFT RADIAL, Blood Gas Patient Temperature 37.2, Arterial Blood pH 7.44H, Arterial Blood Partial Pressure CO2 45, Arterial Blood Partial Pressure O2 104H, Arterial Blood HCO3 30H, Arterial Blood Total CO2 31.6H, Arterial Blood Oxygen Saturation 99, Arterial Blood Base Excess 6.1H, [place] Test POSITIVE, Blood Gas Ventilator Setting YES, Blood Gas Inspired Oxygen 40 10/23/20 06:29: Glucometer 248H 10/23/20 10:13: Blood Gas Puncture Site LEFT RADIAL, Blood Gas Patient Temperature 37.5, Arteria l Blood pH 7.44H, Arterial Blood Partial Pressure CO2 46H, Arterial Blood Partial Pressure O2 75L, Arterial Blood HCO3 31H, Arterial Blood Total CO2 31.8H , Arterial Blood Oxygen Saturation 94, Arterial Blood Base Excess 6.4H, [place] Test POSITIVE, Blood Gas Ventilator Setting YES, Blood Gas Inspired Oxygen 55 10/23/20 12:03: Glucometer 154H 10/23/20 17:28: Glucometer 216H 10/23/20 23:41: Blood Gas Puncture Site right radial, Blood Gas Patient Temperature 37.2, Arterial Blood pH 7.48H, Arterial Blood Partial Pressure CO2 38, Arterial Blood Partial Pressure O2 66L, Arterial Blood HCO3 28H, Arterial Blood Total CO2 28.6, Arterial Blood Oxygen Saturation 94, Arterial Blood Base Excess 4.0H, [place] Test YES-POS, Blood Gas Ventilator Setting NO, Blood Gas Inspired Oxygen 50% 10/23/20 23:45: Glucometer 194H 10/24/20 03:20: White Blood Count 6.3, Red Blood Count 4.34, Hemoglobin 11.9#L, Hematocrit 38L, Mean Corpuscular Volume 88, Mean Corpuscular Hemoglobin 27, Mean Corpuscular Hemoglobin Concent 31L, Red Cell Distribution Width 14.5, Platelet Count 208, Mean Platelet Volume 10.3, Immature Granulocyte % (Auto) 1, Neutrophils (%) (Auto) 71, Lymphocytes (%) (Auto) 18, Monocytes (%) (Auto) 7, Eosinophils (%) (Auto) 2, Basophils (%) (Auto) 1, Neutrophils # (Auto) 4.5, Lymphocytes # (Auto) 1.1, Monocytes # (Auto) 0.4, Eosinophils # (Auto) 0.1, Basophils # (Auto) 0.0, Immature Granulocyte # (Auto) 0.1, Sodium Level 138, Potassium Level 3.6, Chloride Level 101, Carbon Dioxide Level 28, Anion Gap 9, Blood Urea Nitrogen 8, Creatinine 0.61, Estimat Glomerular Filtration Rate 144, BUN/Creatinine Ratio 13, Glucose Level 138H, Calcium Level 9.4, Corrected Calcium 10.0, Phosphorus Level 2.3, Magnesium Level 2.0, Total Bilirubin 0.6, Aspartate Amino Transf (AST/SGOT) 82H, Alanine Aminotransferase (ALT/SGPT) 104H, Alkaline Phosphatase 130, Total Protein 7.3, Albumin 3.3 10/24/20 07:01: Glucometer 154H 10/24/20 07:50: Vancomycin Level Trough 14.5 10/24/20 11:21: Glucometer 169H 10/24/20 15:27: Glucometer 178H 10/24/20 20:09: Glucometer 181H 10/25/20 05:12: White Blood Count 6.6, Red Blood Count 4.34, Hemoglobin 11.9L, Hematocrit 38L, Mean Corpuscular Volume 87, Mean Corpuscular Hemoglobin 27, Mean Corpuscular Hemoglobin Concent 31L, Red Cell Distribution Width 14.6H, Platelet Count 233, Mean Platelet Volume 10.5, Immature Granulocyte % (Auto) 1, Neutrophils (%) (Auto) 63, Lymphocytes (%) (Auto) 22, Monocytes (%) (Auto) 10, Eosinophils (%) (Auto) 4, Basophils (%) (Auto) 1, Neutrophils # (Auto) 4.2, Lymphocytes # (Auto) 1.4, Monocytes # (Auto) 0.7, Eosinophils # (Auto) 0.2, Basophils # (Auto) 0.1, Immature Granulocyte # (Auto) 0.1, Sodium Level 140, Potassium Level 3.3L, Chloride Level 101, Carbon Dioxide Level 25, Anion Gap 14, Blood Urea Nitrogen 8, Creatinine 0.67, Estimat Glomerular Filtration Rate 129, BUN/Creatinine Ratio 12, Glucose Level 161H, Calcium Level 9.6, Corrected Calcium 10.1, Phosphorus Level 3.0, Magnesium Level 1.9, Total Bilirubin 0.6, Aspartate Amino Transf (AST/SGOT) 63H, Alanine Aminotransferase (ALT/SGPT) 116H, Alkaline Phosphatase 109, Total Protein 7.6, Albumin 3.4 10/25/20 10:54: Glucometer 198H 10/25/20 15:52: Glucometer 161H 10/25/20 20:20: Glucometer 145H 10/26/20 05:14: Glucometer 140H 10/26/20 07:24: White Blood Count 7.1, Red Blood Count 4.43, Hemoglobin 12.2L, Hematocrit 39L, M robin Corpuscular Volume 87, Mean Corpuscular Hemoglobin 28, Mean Corpuscular Hemoglobin Concent 32, Red Cell Distribution Width 14.6H, Platelet Count 223, Mean Platelet Volume 10.2, Immature Granulocyte % (Auto) 2, Neutrophils (%) (Auto) 58, Lymphocytes (%) (Auto) 25, Monocytes (%) (Auto) 10, Eosinophils (%) (Auto) 5, Basophils (%) (Auto) 1, Neutrophils # (Auto) 4.1, Lymphocytes # (Auto) 1.8, Monocytes # (Auto) 0.7, Eosinophils # (Auto) 0.4H, Basophils # (Auto) 0.0, Immature Granulocyte # (Auto) 0.1, Sodium Level 139, Potassium Level 3.5L, Chloride Level 100, Carbon Dioxide Level 25, Anion Gap 14, Blood Urea Nitrogen 11, Creatinine 0.68, Estimat Glomerular Filtration Rate 127, BUN/Creatinine Ratio 16, Glucose Level 142H, Uric Acid 7.2, Calcium Level 10.1, Corrected Calcium 10.4H, Total Bilirubin 0.6, Aspartate Amino Transf (AST/SGOT) 36H, Alanine Aminotransferase (ALT/SGPT) 92H, Alkaline Phosphatase 110, Total Protein 7.6, Albumin 3.6 10/26/20 11:22: Glucometer 185H 10/26/20 17:03: Glucometer 190H 10/26/20 20:12: Glucometer 253H 10/27/20 05:22: Glucometer 103 10/27/20 06:10: White Blood Count 6.4, Red Blood Count 4.78, Hemoglobin 13.0L, Hematocrit 41, Mean Corpuscular Volume 86, Mean Corpuscular Hemoglobin 27, Mean Corpuscular Hemoglobin Concent 32, Red Cell Distribution Width 14.2, Platelet Count 227, Mean Platelet Volume 10.7, Immature Granulocyte % (Auto) 2, Neutrophils (%) (Auto) 55, Lymphocytes (%) (Auto) 32, Monocytes (%) (Auto) 10, Eosinophils (%) (Auto) 1, Basophils (%) (Auto) 1, Neutrophils # (Auto) 3.5, Lymphocytes # (Auto) 2.1, Monocytes # (Auto) 0.6, Eosinophils # (Auto) 0.1, Basophils # (Auto) 0.0, Immature Granulocyte # (Auto) 0.2H, Sodium Level 136, Potassium Level 3.9, Chloride Level 97L, Carbon Dioxide Level 29, Anion Gap 10, Blood Urea Nitrogen 14, Creatinine 0.71, Estimat Glomerular Filtration Rate 121, BUN/Creatinine Ratio 20, Glucose Level 117H, Calcium Level 10.6H, Corrected Calcium 10.7H, Total Bilirubin 0.5, Aspartate Amino Transf (AST/SGOT) 34, Alanine Aminotransferase (ALT/SGPT) 86H, Alkaline Phosphatase 101, Total Protein 8.4H, Albumin 3.9, Smear Scan YES 10/27/20 11:01: Glucometer 274H 10/27/20 16:19: Glucometer 213H 10/27/20 20:47: Glucometer 205H 10/28/20 05:36: Glucometer 110 10/28/20 06:10: White Blood Count 7.3, Red Blood Count 4.49, Hemoglobin 12.1L, Hematocrit 39L, Mean Corpuscular Volume 87, Mean Corpuscular Hemoglobin 27, Mean Corpuscular Hemoglobin Concent 31L, Red Cell Distribution Width 14.5, Platelet Count 209, Mean Platelet Volume 10.5, Immature Granulocyte % (Auto) 2, Neutrophils (%) (Auto) 46, Lymphocytes (%) (Auto) 41, Monocytes (%) (Auto) 8, Eosinophils (%) (Auto) 2, Basophils (%) (Auto) 1, Neutrophils # (Auto) 3.3, Lymphocytes # (Auto) 3.0, Monocytes # (Auto) 0.6, Eosinophils # (Auto) 0.1, Basophils # (Auto) 0.1, Immature Granulocyte # (Auto) 0.2H, Sodium Level 137, Potassium Level 3.5L, Chloride Level 97L, Carbon Dioxide Level 29, Anion Gap 11, Blood Urea Nitrogen 19H, Creatinine 0.80, Estimat Glomerular Filtration Rate 105, BUN/Creatinine Ratio 24, Glucose Level 108H, Calcium Level 10.2H, Corrected Calcium 10.4H, Total Bilirubin 0.6, Aspartate Amino Transf (AST/SGOT) 36H, Alanine Aminotransferase (ALT/SGPT) 78H, Alkaline Phosphatase 83, Total Protein 7.8, Albumin 3.7 10/28/20 06:30: Urine Color YELLOW, Urine Clarity CLEAR, Urine pH 6.0, Urine Specific [place] 1.020, Urine Protein NEGATIVE, Urine Glucose (UA) NEGATIVE, Urine Ketones NEGATIVE, Urine Nitrite NEGATIVE, Urine Bilirubin NEGATIVE, Urine Urobilinogen 0.2, Urine Leukocyte Esterase NEGATIVE, Urine RBC (Auto) NEGATIVE, Urine RBC 0- 2, Urine WBC 0-2, Urine Squamous Epithelial Cells NONE, Urine Crystals NONE, Urine Bacteria NEGATIVE, Urine Casts NONE, Urine Mucus NEGATIVE, Urine Culture Indicated NO Microbiology 10/19/20 Blood Culture - Final, Complete No growth 10/13/20 Gram Stain - Final, Complete 10/13/20 Sputum Culture - Final, Complete YEAST Pending Labs Microbiology Date/Time Source Procedure Growth Status 10/19/20 23:00 Port Picc Blood Culture - Final No growth Complete 10/13/20 14:40 Sputum Endotracheal Gram Stain - Final Complete 10/13/20 14:40 Sputum Culture - Final YEAST Complete 10/13/20 12:00 Peripheral Left Wrist Blood Culture - Final No growth Complete 10/13/20 11:10 Port Not Otherwise Specified Blood Culture - Final No growth Complete 10/11/20 13:30 Peripheral Lt Hand Blood Culture - Final No growth Complete 10/11/20 13:15 Port Picc Blood Culture - Final Staph, Coag Neg ([employer]) Complete 10/09/20 11:00 Sputum Endotracheal Gram Stain - Final Complete 10/09/20 11:00 Sputum Culture - Final Usual upper respiratory jamaal YEAST Complete Laboratory Tests 10/08/20 10:38: Lab Scanned Report Referred Lab Report 10/08/20 11:16: Glucometer 210 10/08/20 11:30: Blood Gas Puncture Site LT RAD, Blood Gas Patient Temperature 99.3, Arterial Blood pH 7.39, Arterial Blood Partial Pressure CO2 50, Arterial Blood Partial Pressure O2 80, Arterial Blood HCO3 29, Arterial Blood Total CO2 30.6, Arterial Blood Oxygen Saturation 96, Arterial Blood Base Excess 4.5, [place] Test NA, Blood Gas Ventilator Setting YES, Blood Gas Inspired Oxygen 100% 10/08/20 13:28: White Blood Count 10.4, Red Blood Count 4.55, Hemoglobin 12.3, Hematocrit 40, Mean Corpuscular Volume 89, Mean Corpuscular Hemoglobin 27, Mean Corpuscular Hemoglobin Concent 31, Red Cell Distribution Width 14.0, Platelet Count 197, Mean Platelet Volume 11.2, Immature Granulocyte % (Auto) 3, Neutrophils (%) (Auto) 88, Lymphocytes (%) (Auto) 7, Monocytes (%) (Auto) 2, Eosinophils (%) (Auto) 0, Basophils (%) (Auto) 0, Neutrophils # (Auto) 9.2, Lymphocytes # (Auto) 0.7, Monocytes # (Auto) 0.2, Eosinophils # (Auto) 0.0, Basophils # (Auto) 0.0, Immature Granulocyte # (Auto) 0.3, Neutrophils % (Manual) 88, Lymphocytes % (Manual) 6, Monocytes % (Manual) 0, Eosinophils % (Manual) 0, Basophils % (Manual) 0, Metamyelocytes % 2, Band Neutrophils 4, Blood Morphology Comment NORMAL, Prothrombin Time 13.8, INR Comment 1.0, Activated Partial Thromboplast Time 33, D-Dimer 0.60, Sodium Level 137, Potassium Level 4.3, Chloride Level 102, Carbon Dioxide Level 28, Anion Gap 7, Blood Urea Nitrogen 16, Creatinine 0.78, Estimat Glomerular Filtration Rate 108, BUN/Creatinine Ratio 21, Glucose Level 213, Lactic Acid Level 0.89, Calcium Level 9.1, Corrected Calcium 9.7, Magnesium Level 2.1, Ferritin 2475.0, Total Bilirubin 0.5, Aspartate Amino Transf (AST/SGOT) 59, Alanine Aminotransferase (ALT/SGPT) 40, Alkaline Phosphatase 63, Lactate Dehydrogenase 549, Creatine Kinase MB 1.0, Troponin I < 0.028, C-Reactive Protein High Sensitivity 13.68, B-Type Natriuretic Peptide 11.1, Total Protein 7.0, Albumin 3.2, Triglycerides Level 279 10/08/20 17:01: Glucometer 219 10/08/20 23:08: Glucometer 147 10/09/20 04:05: White Blood Count 9.3, Red Blood Count 4.43, Hemoglobin 12.0, Hematocrit 39, Mean Corpuscular Volume 88, Mean Corpuscular Hemoglobin 27, Mean Corpuscular Hemoglobin Concent 31, Red Cell Distribution Width 14.2, Platelet Count 220, Mean Platelet Volume 11.3, Immature Granulocyte % (Auto) 5, Neutrophils (%) (Auto) 80, Lymphocytes (%) (Auto) 12, Monocytes (%) (Auto) 3, Eosinophils (%) (Auto) 0, Basophils (%) (Auto) 0, Neutrophils # (Auto) 7.5, Lymphocytes # (Auto) 1.1, Monocytes # (Auto) 0.3, Eosinophils # (Auto) 0.0, Basophils # (Auto) 0.0, Immature Granulocyte # (Auto) 0.4, Blood Gas Puncture Site RIGHT RADIAL, Blood Gas Patient Temperature 38.2, Arterial Blood pH 7.38, Arterial Blood Partial Pressure CO2 53, Arterial Blood Partial Pressure O2 71, Arterial Blood HCO3 30, Arterial Blood Total CO2 31.8, Arterial Blood Oxygen Saturation 91, Arterial Blood Base Excess 5.5, [place] Test POSITIVE, Blood Gas Ventilator Setting YES, Blood Gas Inspired Oxygen 90, Sodium Level 143, Potassium Level 3.7, Chloride Level 105, Carbon Dioxide Level 29, Anion Gap 9, Blood Urea Nitrogen 18, Creatinine 0.81, Estimat Glomerular Filtration Rate 104, BUN/Creatinine Ratio 22, Glucose Level 104, Calcium Level 8.9, Corrected Calcium 9.6, Magnesium Level 2.1, Total Bilirubin 0.5, Aspartate Amino Transf (AST/SGOT) 42, Alanine Aminotransferase (ALT/SGPT) 36, Alkaline Phosphatase 54, Total Protein 6.7, Albumin 3.1 10/09/20 11:35: Glucometer 147 10/09/20 17:09: Glucometer 170 10/09/20 23:52: Glucometer 150 10/10/20 02:31: White Blood Count 7.3, Red Blood Count 4.31, Hemoglobin 11.8, Hematocrit 38, Mean Corpuscular Volume 88, Mean Corpuscular Hemoglobin 27, Mean Corpuscular Hemoglobin Concent 31, Red Cell Distribution Width 14.1, Platelet Count 251, Mean Platelet Volume 11.1, Immature Granulocyte % (Auto) 6, Neutrophils (%) (Auto) 74, Lymphocytes (%) (Auto) 17, Monocytes (%) (Auto) 4, Eosinophils (%) (Auto) 0, Basophils (%) (Auto) 0, Neutrophils # (Auto) 5.4, Lymphocytes # (Auto) 1.2, Monocytes # (Auto) 0.3, Eosinophils # (Auto) 0.0, Basophils # (Auto) 0.0, Immature Granulocyte # (Auto) 0.4, Sodium Level 141, Potassium Level 3.7, Chloride Level 107, Carbon Dioxide Level 25, Anion Gap 9, Blood Urea Nitrogen 21, Creatinine 0.76, Estimat Glomerular Filtration Rate 111, BUN/Creatinine Ratio 28, Glucose Level 138, Calcium Level 8.6, Magnesium Level 2.1, Triglyceri eva Level 341 10/10/20 03:07: Blood Gas Puncture Site L RAD, Blood Gas Patient Temperature 37.5, Arterial B lood pH 7.43, Arterial Blood Partial Pressure CO2 44, Arterial Blood Partial Pressure O2 66, Arterial Blood HCO3 29, Arterial Blood Total CO2 29.9, Arterial Blood Oxygen Saturation 92, Arterial Blood Base Excess 4.5, [place] Test YES-POS, Blood Gas Ventilator Setting YES, Blood Gas Inspired Oxygen 90% 10/10/20 11:42: Glucometer 199 10/10/20 17:26: Glucometer 187 10/10/20 23:43: Glucometer 170 10/11/20 02:25: White Blood Count 8.7, Red Blood Count 4.50, Hemoglobin 12.4, Hematocrit 39, Mean Corpuscular Volume 88, Mean Corpuscular Hemoglobin 28, Mean Corpuscular Hemoglobin Concent 32, Red Cell Distribution Width 14.0, Platelet Count 268, Mean Platelet Volume 10.8, Immature Granulocyte % (Auto) 6, Neutrophils (%) (Auto) 72, Lymphocytes (%) (Auto) 18, Monocytes (%) (Auto) 4, Eosinophils (%) (Auto) 0, Basophils (%) (Auto) 0, Neutrophils # (Auto) 6.2, Lymphocytes # (Auto) 1.6, Monocytes # (Auto) 0.3, Eosinophils # (Auto) 0.0, Basophils # (Auto) 0.0, Immature Granulocyte # (Auto) 0.6, Sodium Level 138, Potassium Level 3.7, Chloride Level 103, Carbon Dioxide Level 26, Anion Gap 9, Blood Urea Nitrogen 19, Creatinine 0.75, Estimat Glomerular Filtration Rate 113, BUN/Creatinine Ratio 25, Glucose Level 206, Calcium Level 8.6, Magnesium Level 2.0 10/11/20 04:24: Blood Gas Puncture Site R RAD, Blood Gas Patient Temperature 37.8, Arterial Blood pH 7.44, Arterial Blood Partial Pressure CO2 45, Arterial Blood Partial Pressure O2 79, Arterial Blood HCO3 30, Arterial Blood Total CO2 31.2, Arterial Blood Oxygen Saturation 94, Arterial Blood Base Excess 5.9, [place] Test YES-POS, Blood Gas Ventilator Setting YES, Blood Gas Inspired Oxygen 90% 10/11/20 05:37: Glucometer 205 10/11/20 11:09: Glucometer 198 10/11/20 11:10: Urine Color DARK YELLOW, Urine Clarity CLEAR, Urine pH 6.0, Urine Specific [place] 1.020, Urine Protein NEGATIVE, Urine Glucose (UA) NEGATIVE, Urine Ketones NEGATIVE, Urine Nitrite NEGATIVE, Urine Bilirubin NEGATIVE, Urine Urobilinogen 1.0, Urine Leukocyte Esterase NEGATIVE, Urine RBC (Auto) NEGATIVE, Urine RBC 0-2, Urine WBC 2-5, Urine Squamous Epithelial Cells NONE, Urine Crystals NONE, Urine Bacteria FEW, Urine Casts NONE, Urine Mucus NEGATIVE, Urine Yeast MODERATE, Urine Culture Indicated NO 10/11/20 17:16: Glucometer 187 10/11/20 23:44: Glucometer 159 10/12/20 02:10: White Blood Count 10.0, Red Blood Count 4.80, Hemoglobin 13.0, Hematocrit 42, Mean Corpuscular Volume 88, Mean Corpuscular Hemoglobin 27, Mean Corpuscular Hemoglobin Concent 31, Red Cell Distribution Width 13.9, Platelet Count 285, Mean Platelet Volume 11.0, Immature Granulocyte % (Auto) 5, Neutrophils (%) (Auto) 74, Lymphocytes (%) (Auto) 17, Monocytes (%) (Auto) 3, Eosinophils (%) (Auto) 1, Basophils (%) (Auto) 0, Neutrophils # (Auto) 7.4, Lymphocytes # (Auto) 1.7, Monocytes # (Auto) 0.3, Eosinophils # (Auto) 0.1, Basophils # (Auto) 0.0, Immature Granulocyte # (Auto) 0.5, Sodium Level 140, Potassium Level 4.0, Chloride Level 103, Carbon Dioxide Level 27, Anion Gap 10, Blood Urea Nitrogen 18, Creatinine 0.73, Estimat Glomerular Filtration Rate 117, BUN/Creatinine Ratio 25, Glucose Level 143, Calcium Level 9.2, Magnesium Level 2.2, Triglycerides Level 406 10/12/20 04:55: Blood Gas Puncture Site R RAD, Blood Gas Patient Temperature 38, Arterial Blood pH 7.43, Arterial Blood Partial Pressure CO2 47, Arterial Blood Partial Pressure O2 79, Arterial Blood HCO3 30, Arterial Blood Total CO2 31.4, Arterial Blood Oxygen Saturation 95, Arterial Blood Base Excess 5.9, [place] Test YES-POS, Blood Gas Ventilator Setting YES, Blood Gas Inspired Oxygen 80% 10/12/20 11:46: Glucometer 245 10/12/20 17:19: Glucometer 237 10/12/20 22:54: Glucometer 175 10/13/20 03:25: White Blood Count 10.5, Red Blood Count 4.62, Hemoglobin 12.6, Hematocrit 41, Mean Corpuscular Volume 89, Mean Corpuscular Hemoglobin 27, Mean Corpuscular Hemoglobin Concent 31, Red Cell Distribution Width 14.0, Platelet Count 272, Mean Platelet Volume 11.1, Immature Granulocyte % (Auto) 5, Neutrophils (%) (Auto) 75, Lymphocytes (%) (Auto) 17, Monocytes (%) (Auto) 2, Eosinophils (%) (Auto) 1, Basophils (%) (Auto) 0, Neutrophils # (Auto) 7.9, Lymphocytes # (Auto) 1.8, Monocytes # (Auto) 0.3, Eosinophils # (Auto) 0.1, Basophils # (Auto) 0.0, Immature Granulocyte # (Auto) 0.5, Blood Gas Puncture Site LEFT RAD, Blood Gas Patient Temperature 38.1, Arterial Blood pH 7.39, Arterial Blood Partial Pressure CO2 50, Arterial Blood Partial Pressure O2 94, Arterial Blood HCO3 29, Arterial Blood Total CO2 30.6, Arterial Blood Oxygen Saturation 97, Arterial Blood Base Excess 4.7, [place] Test YES-POS, Blood Gas Ventilator Setting YES, Blood Gas Inspired Oxygen 95%, Sodium Level 138, Potassium Level 4.3, Chloride Level 102, Carbon Dioxide Level 26, Anion Gap 10, Blood Urea Nitrogen 18, Creatinine 0.74, Estimat Glomerular Filtration Rate 115, BUN/Creatinine Ratio 24, Glucose Level 165, Calcium Level 9.1, Magnesium Level 2.2, Total Bilirubin 0.5, Direct Bilirubin 0.2, Indirect Bilirubin 0.3, Aspartate Amino Transf (AST/SGOT) 43, Alanine Aminotransferase (ALT/SGPT) 52, Alkaline Phosphatase 67, Total Protein 7.5, Albumin 3.1, Procalcitonin 0.10 10/13/20 11:22: Glucometer 263 10/13/20 16:34: Glucometer 293 10/13/20 17:45: Glucometer 239 10/13/20 23:19: Glucometer 185 10/14/20 02:50: Blood Gas Puncture Site R RAD, Blood Gas Patient Temperature 38, Arterial Blood pH 7.41, Arterial Blood Partial Pressure CO2 50, Arterial Blood Partial Pressure O2 76, Arterial Blood HCO3 30, Arterial Blood Total CO2 31.9, Arterial Blood Oxygen Saturation 94, Arterial Blood Base Excess 6.0, [place] Test YES-POS, Blood Gas Ventilator Setting YES, Blood Gas Inspired Oxygen 85% 10/14/20 03:45: White Blood Count 9.6, Red Blood Count 4.60, Hemoglobin 12.6, Hematocrit 42, Mean Corpuscular Volume 92, Mean Corpuscular Hemoglobin 27, Mean Corpuscular Hemoglobin Concent 30, Red Cell Distribution Width 13.5, Platelet Count 261, Mean Platelet Volume 11.3, Immature Granulocyte % (Auto) 4, Neutrophils (%) (Auto) 77, Lymphocytes (%) (Auto) 14, Monocytes (%) (Auto) 4, Eosinophils (%) (Auto) 1, Basophils (%) (Auto) 0, Neutrophils # (Auto) 7.4, Lymphocytes # (Auto) 1.4, Monocytes # (Auto) 0.3, Eosinophils # (Auto) 0.1, Basophils # (Auto) 0.0, Immature Granulocyte # (Auto) 0.4 10/14/20 06:10: Sodium Level 138, Potassium Level 4.2, Chloride Level 103, Carbon Dioxide Level 25, Anion Gap 10, Blood Urea Nitrogen 21, Creatinine 0.76, Estimat Glomerular Filtration Rate 111, BUN/Creatinine Ratio 28, Glucose Level 169, Calcium Level 9.3, Magnesium Level 2.2, Triglycerides Level 284 10/14/20 11:44: Glucometer 242 10/14/20 17:46: Glucometer 257 10/14/20 23:02: Glucometer 178 10/15/20 03:05: White Blood Count 9.1, Red Blood Count 4.38, Hemoglobin 11.9, Hematocrit 39, Mean Corpuscular Volume 89, Mean Corpuscular Hemoglobin 27, Mean Corpuscular Hemoglobin Concent 31, Red Cell Distribution Width 13.6, Platelet Count 258, Josee n Platelet Volume 11.6, Immature Granulocyte % (Auto) 2, Neutrophils (%) (Auto) 71, Lymphocytes (%) (Auto) 22, Monocytes (%) (Auto) 4, Eosinophils (%) (Auto) 1, Basophils (%) (Auto) 0, Neutrophils # (Auto) 6.4, Lymphocytes # (Auto) 2.0, Monocytes # (Auto) 0.4, Eosinophils # (Auto) 0.1, Basophils # (Auto) 0.0, Immature Granulocyte # (Auto) 0.2, D-Dimer 1.13, Blood Gas Puncture Site R RADIAL, Blood Gas Patient Temperature 37, Arterial Blood pH 7.43, Arterial Blood Partial Pressure CO2 50, Arterial Blood Partial Pressure O2 175, Arterial Blood HCO3 32, Arterial Blood Total CO2 33.4, Arterial Blood Oxygen Saturation 100, Arterial Blood Base Excess 7.6, [place] Test YES-POS, Blood Gas Ventilator Setting YES, Blood Gas Inspired Oxygen 80%, Sodium Level 138, Potassium Level 4.9, Chloride Level 102, Carbon Dioxide Level 26, Anion Gap 10, Blood Urea Nitrogen 20, Creatinine 0.69, Estimat Glomerular Filtration Rate 125, BUN/Creatinine Ratio 29, Glucose Level 153, Lactic Acid Level 1.37, Calcium Level 8.9, Magnesium Level 2.1, Total Bilirubin 0.4, Direct Bilirubin 0.1, Indirect Bilirubin 0.3, Aspartate Amino Transf (AST/SGOT) 29, Alanine Aminotransferase (ALT/SGPT) 46, Alkaline Phosphatase 77, Total Protein 7.3, Albumin 3.0, Lipase 79, Thyroid Stimulating Hormone (TSH) 6.99 10/15/20 11:07: Glucometer 264 10/15/20 17:33: Glucometer 239 10/15/20 19:52: Glucometer 210 10/15/20 23:28: Glucometer 153 10/16/20 03:25: White Blood Count 11.0, Red Blood Count 4.36, Hemoglobin 11.9, Hematocrit 39, Mean Corpuscular Volume 89, Mean Corpuscular Hemoglobin 27, Mean Corpuscular Hemoglobin Concent 31, Red Cell Distribution Width 13.6, Platelet Count 268, Mean Platelet Volume 11.0, Immature Granulocyte % (Auto) 1, Neutrophils (%) (Auto) 73, Lymphocytes (%) (Auto) 19, Monocytes (%) (Auto) 5, Eosinophils (%) (Auto) 1, Basophils (%) (Auto) 0, Neutrophils # (Auto) 8.1, Lymphocytes # (Auto) 2.1, Monocytes # (Auto) 0.6, Eosinophils # (Auto) 0.1, Basophils # (Auto) 0.0, Immature Granulocyte # (Auto) 0.1, Blood Gas Puncture Site RIGHT RADIAL, Blood Gas Patient Temperature 36.9, Arterial Blood pH 7.40, Arterial Blood Partial Pressure CO2 54, Arterial Blood Partial Pressure O2 71, Arterial Blood HCO3 33, Arterial Blood Total CO2 34.4, Arterial Blood Oxygen Saturation 93, Arterial Blood Base Excess 7.8, Casper Test POSITIVE, Blood Gas Ventilator Setting YES, Blood Gas Inspired Oxygen 60, Sodium Level 140, Potassium Level 3.9, Chloride Level 101, Carbon Dioxide Level 27, Anion Gap 12, Blood Urea Nitrogen 19, Creatinine 0.68, Estimat Glomerular Filtration Rate 127, BUN/Creatinine Ratio 28, Glucose Level 113, Calcium Level 9.3, Magnesium Level 2.1, Triglycerides Level 288 10/16/20 10:14: Glucometer 199 10/16/20 12:36: Glucometer 271 10/16/20 17:47: Glucometer 286 10/16/20 23:20: Glucometer 213 10/17/20 03:08: White Blood Count 8.0, Red Blood Count 4.05, Hemoglobin 11.0, Hematocrit 37, Mean Corpuscular Volume 91, Mean Corpuscular Hemoglobin 27, Mean Corpuscular Hemoglobin Concent 30, Red Cell Distribution Width 13.8, Platelet Count 267, Mean Platelet Volume 11.0, Immature Granulocyte % (Auto) 1, Neutrophils (%) (Auto) 80, Lymphocytes (%) (Auto) 13, Monocytes (%) (Auto) 5, Eosinophils (%) (Auto) 0, Basophils (%) (Auto) 0, Neutrophils # (Auto) 6.4, Lymphocytes # (Auto) 1.1, Monocytes # (Auto) 0.4, Eosinophils # (Auto) 0.0, Basophils # (Auto) 0.0, Immature Granulocyte # (Auto) 0.1, Sodium Level 138, Potassium Level 4.2, Chloride Level 101, Carbon Dioxide Level 27, Anion Gap 10, Blood Urea Nitrogen 14, Creatinine 0.72, Estimat Glomerular Filtration Rate 119, BUN/Creatinine Ratio 19, Glucose Level 231, Calcium Level 9.1, Magnesium Level 2.1 10/17/20 03:12: Blood Gas Puncture Site LEFT RADIAL, Blood Gas Patient Temperature 37.1, Arterial Blood pH 7.37, Arterial Blood Partial Pressure CO2 53, Arterial Blood Partial Pressure O2 97, Arterial Blood HCO3 30, Arterial Blood Total CO2 31.6, Arterial Blood Oxygen Saturation 98, Arterial Blood Base Excess 5.0, Casper Test YES-POS, Blood Gas Ventilator Setting YES, Blood Gas Inspired Oxygen 60% 10/17/20 11:43: Glucometer 284 10/17/20 17:37: Glucometer 333 10/17/20 20:34: Glucometer 280 10/18/20 00:23: Glucometer 249 10/18/20 03:45: White Blood Count 6.9, Red Blood Count 3.48, Hemoglobin 9.5, Hematocrit 31, Mean Corpuscular Volume 90, Mean Corpuscular Hemoglobin 27, Mean Corpuscular Hemoglobin Concent 30, Red Cell Distribution Width 13.8, Platelet Count 215, M robin Platelet Volume 11.4, Immature Granulocyte % (Auto) 1, Neutrophils (%) (Auto) 74, Lymphocytes (%) (Auto) 20, Monocytes (%) (Auto) 6, Eosinophils (%) (Auto) 0, Basophils (%) (Auto) 0, Neutrophils # (Auto) 5.1, Lymphocytes # (Auto) 1.4, Monocytes # (Auto) 0.4, Eosinophils # (Auto) 0.0, Basophils # (Auto) 0.0, Immature Granulocyte # (Auto) 0.1, Blood Gas Puncture Site R RADIAL, Blood Gas Patient Temperature 38.2, Arterial Blood pH 7.41, Arterial Blood Partial Pressure CO2 57, Arterial Blood Partial Pressure O2 84, Arterial Blood HCO3 35, Arterial Blood Total CO2 36.4, Arterial Blood Oxygen Saturation 94, Arterial Blood Base Excess 10.1, Casper Test YES-POS, Blood Gas Ventilator Setting YES, Blood Gas Inspired Oxygen 20, Sodium Level 142, Potassium Level 3.3, Chloride Level 109, Carbon Dioxide Level 25, Anion Gap 8, Blood Urea Nitrogen 16, Creatinine 0.56, Estimat Glomerular Filtration Rate 158, BUN/Creatinine Ratio 29, Glucose Level 174, Calcium Level 7.0, Magnesium Level 1.7 10/18/20 11:41: Glucometer 248 10/18/20 17:30: Glucometer 245 10/18/20 23:12: Glucometer 189 10/19/20 03:37: White Blood Count 10.7, Red Blood Count 4.07, Hemoglobin 11.0, Hematocrit 37, Mean Corpuscular Volume 91, Mean Corpuscular Hemoglobin 27, Mean Corpuscular Hemoglobin Concent 30, Red Cell Distribution Width 14.4, Platelet Count 261, Mean Platelet Volume 10.8, Immature Granulocyte % (Auto) 1, Neutrophils (%) (Auto) 66, Lymphocytes (%) (Auto) 27, Monocytes (%) (Auto) 6, Eosinophils (%) (Auto) 1, Basophils (%) (Auto) 0, Neutrophils # (Auto) 7.0, Lymphocytes # (Auto) 2.9, Monocytes # (Auto) 0.6, Eosinophils # (Auto) 0.1, Basophils # (Auto) 0.0, Immature Granulocyte # (Auto) 0.1, Sodium Level 141, Potassium Level 3.4, Chloride Level 106, Carbon Dioxide Level 26, Anion Gap 9, Blood Urea Nitrogen 22, Creatinine 0.67, Estimat Glomerular Filtration Rate 129, BUN/Creatinine Ratio 33, Glucose Level 188, Calcium Level 8.0, Corrected Calcium 9.0, Phosphorus Level 3.7, Magnesium Level 1.9, Total Bilirubin 0.7, Aspartate Amino Transf (AST/SGOT) 19, Alanine Aminotransferase (ALT/SGPT) 31, Alkaline Marge sphatase 62, Total Protein 6.2, Albumin 2.8 10/19/20 03:48: Blood Gas Puncture Site RIGHT RADIAL, Blood Gas Patient Temperature 37.5, Arterial Blood pH 7.38, Arterial Blood Partial Pressure CO2 53, Arterial Blood Partial Pressure O2 70, Arterial Blood HCO3 30, Arterial Blood Total CO2 31.9, Arterial Blood Oxygen Saturation 93, Arterial Blood Base Excess 5.5, Casper Test YES-POS, Blood Gas Ventilator Setting YES, Blood Gas Inspired Oxygen 40% 10/19/20 12:00: Glucometer 303 10/19/20 17:42: Glucometer 245 10/19/20 19:46: Glucometer 208 10/19/20 22:10: Urine Color RED, Urine Clarity CLOUDY, Urine pH 5.0, Urine Specific [place] 1.020, Urine Protein 3+, Urine Glucose (UA) TRACE, Urine Ketones 1+, Urine Nitrite POSITIVE, Urine Bilirubin NEGATIVE, Urine Urobilinogen 4.0, Urine Leukocyte Esterase 2+, Urine RBC (Auto) 3+, Urine RBC TNTC, Urine WBC RARE, Urine Crystals NONE, Urine Bacteria NEGATIVE, Urine Casts NONE, Urine Mucus NEGATIVE, Urine Culture Indicated NO 10/19/20 22:55: Lactic Acid Level 1.02, Procalcitonin 0.07 10/19/20 23:45: Glucometer 239 10/20/20 03:00: White Blood Count 7.3, Red Blood Count 4.09, Hemoglobin 11.1, Hematocrit 37, Mean Corpuscular Volume 90, Mean Corpuscular Hemoglobin 27, Mean Corpuscular Hemoglobin Concent 30, Red Cell Distribution Width 14.3, Platelet Count 245, Mean Platelet Volume 11.4, Immature Granulocyte % (Auto) 1, Neutrophils (%) (Auto) 69, Lymphocytes (%) (Auto) 23, Monocytes (%) (Auto) 6, Eosinophils (%) (Auto) 1, Basophils (%) (Auto) 0, Neutrophils # (Auto) 5.0, Lymphocytes # (Auto) 1.7, Monocytes # (Auto) 0.5, Eosinophils # (Auto) 0.1, Basophils # (Auto) 0.0, Immature Granulocyte # (Auto) 0.0, Blood Gas Puncture Site LEFT RADIAL, Blood Gas Patient Temperature 37.0, Arterial Blood pH 7.42, Arterial Blood Partial Pressure CO2 48, Arterial Blood Partial Pressure O2 71, Arterial Blood HCO3 30, Arterial Blood Total CO2 31.7, Arterial Blood Oxygen Saturation 95, Arterial Blood Base Excess 5.8, Casper Test YES-POS, Blood Gas Ventilator Setting YES, Blood Gas Inspired Oxygen 40%, Sodium Level 138, Potassium Level 3.7, Chloride Level 102, Carbon Dioxide Level 28, Anion Gap 8, Blood Urea Nitrogen 22, Creatinine 0.70, Estimat Glomerular Filtration Rate 123, BUN/Creatinine Ratio 31, Glucose Level 266, Calcium Level 9.1, Corrected Calcium 9.8, Phosphorus Level 3.1, Magnesium Level 2.1, Total Bilirubin 0.7, Aspartate Amino Transf (AST/SGOT) 23, Alanine Aminotransferase (ALT/SGPT) 37, Alkaline Phosphatase 91, Total Protein 6.9, Albumin 3.1 10/20/20 11:40: Glucometer 281 10/20/20 17:32: Glucometer 267 10/20/20 20:22: Glucometer 255 10/21/20 00:12: Glucometer 228 10/21/20 04:10: White Blood Count 6.2, Red Blood Count 3.90, Hemoglobin 10.7, Hematocrit 35, Mean Corpuscular Volume 90, Mean Corpuscular Hemoglobin 27, Mean Corpuscular Hemoglobin Concent 30, Red Cell Distribution Width 14.6, Platelet Count 219, Mean Platelet Volume 11.0, Immature Granulocyte % (Auto) 1, Neutrophils (%) (Auto) 77, Lymphocytes (%) (Auto) 15, Monocytes (%) (Auto) 5, Eosinophils (%) (Auto) 3, Basophils (%) (Auto) 0, Neutrophils # (Auto) 4.8, Lymphocytes # (Auto) 0.9, Monocytes # (Auto) 0.3, Eosinophils # (Auto) 0.2, Basophils # (Auto) 0.0, Immature Granulocyte # (Auto) 0.0, Neutrophils % (Manual) 84, Lymphocytes % (Manual) 9, Monocytes % (Manual) 6, Eosinophils % (Manual) 1, Blood Morphology Comment NORMAL, Sodium Level 140, Potassium Level 4.0, Chloride Level 103, Carbon Dioxide Level 29, Anion Gap 8, Blood Urea Nitrogen 18, Creatinine 0.63, Estimat Glomerular Filtration Rate 138, BUN/Creatinine Ratio 29, Glucose Level 240, Calcium Level 9.3, Corrected Calcium 10.1, Phosphorus Level 3.0, Magnesium Level 2.1, Total Bilirubin 0.4, Aspartate Amino Transf (AST/SGOT) 25, Alanine Aminotransferase (ALT/SGPT) 37, Alkaline Phosphatase 80, Total Protein 6.7, Albumin 3.0, Triglycerides Level 178 10/21/20 04:15: Blood Gas Puncture Site LEFT RADIAL, Blood Gas Patient Temperature 37.0, Arterial Blood pH 7.41, Arterial Blood Partial Pressure CO2 49, Arterial Blood Partial Pressure O2 80, Arterial Blood HCO3 30, Arterial Blood Total CO2 31.8, Arterial Blood Oxygen Saturation 96, Arterial Blood Base Excess 5.7, Casper Test YES-POS, Blood Gas Ventilator Setting YES, Blood Gas Inspired Oxygen 60% 10/21/20 11:46: Glucometer 201 10/21/20 17:26: Glucometer 208 10/21/20 23:34: Glucometer 191 10/22/20 04:05: White Blood Count 4.9, Red Blood Count 4.08, Hemoglobin 11.0, Hematocrit 37, Mean Corpuscular Volume 90, Mean Corpuscular Hemoglobin 27, Mean Corpuscular Hemoglobin Concent 30, Red Cell Distribution Width 14.3, Platelet Count 201, Mean Platelet Volume 11.3, Immature Granulocyte % (Auto) 1, Neutrophils (%) (Auto) 61, Lymphocytes (%) (Auto) 28, Monocytes (%) (Auto) 6, Eosinophils (%) (Auto) 4, Basophils (%) (Auto) 0, Neutrophils # (Auto) 3.0, Lymphocytes # (Auto) 1.3, Monocytes # (Auto) 0.3, Eosinophils # (Auto) 0.2, Basophils # (Auto) 0.0, Immature Granulocyte # (Auto) 0.0, Sodium Level 141, Potassium Level 4.0, Chloride Level 104, Carbon Dioxide Level 27, Anion Gap 10, Blood Urea Nitrogen 14, Creatinine 0.67, Estimat Glomerular Filtration Rate 129, BUN/Creatinine Ratio 21, Glucose Level 234, Calcium Level 9.2, Corrected Calcium 10.0, Phosphorus Level 3.0, Magnesium Level 1.9, Total Bilirubin 0.5, Aspartate Amino Transf (AST/SGOT) 24, Alanine Aminotransferase (ALT/SGPT) 33, Alkaline Phosphatase 80, Total Protein 6.7, Albumin 3.0 10/22/20 06:15: Blood Gas Puncture Site RIGHT RADIAL, Blood Gas Patient Temperature 37.3, Arterial Blood pH 7.46, Arterial Blood Partial Pressure CO2 43, Arterial Blood Partial Pressure O2 69, Arterial Blood HCO3 30, Arterial Blood Total CO2 31.5, A rterial Blood Oxygen Saturation 94, Arterial Blood Base Excess 6.3, Casper Test YES-POS, Blood Gas Ventilator Setting YES, Blood Gas Inspired Oxygen 55% 10/22/20 08:15: Vancomycin Level Trough 11.6 10/22/20 11:59: Glucometer 188 10/22/20 17:51: Glucometer 208 10/22/20 23:21: Glucometer 220 10/23/20 01:23: Glucometer 244 10/23/20 03:10: White Blood Count 3.4, Red Blood Count 3.35, Hemoglobin 9.1, Hematocrit 30, Mean Corpuscular Volume 90, Mean Corpuscular Hemoglobin 27, Mean Corpuscular Hemoglobin Concent 30, Red Cell Distribution Width 14.7, Platelet Count 177, Mean Platelet Volume 11.2, Immature Granulocyte % (Auto) 1, Neutrophils (%) (Auto) 58, Lymphocytes (%) (Auto) 27, Monocytes (%) (Auto) 10, Eosinophils (%) (Auto) 4, Basophils (%) (Auto) 1, Neutrophils # (Auto) 2.0, Lymphocytes # (Auto) 0.9, Monocytes # (Auto) 0.3, Eosinophils # (Auto) 0.1, Basophils # (Auto) 0.0, Immature Granulocyte # (Auto) 0.0, Sodium Level 139, Potassium Level 3.4, Chloride Level 107, Carbon Dioxide Level 24, Anion Gap 8, Blood Urea Nitrogen 10, Creatinine 0.56, Estimat Glomerular Filtration Rate 158, BUN/Creatinine Ratio 18, Glucose Level 219, Calcium Level 7.8, Corrected Calcium 8.9, Phosphorus Level 2.7, Magnesium Level 1.6, Total Bilirubin 0.4, Aspartate Amino Transf (AST/SGOT) 26, Alanine Aminotransferase (ALT/SGPT) 37, Alkaline Phosphatase 66, Total Protein 5.6, Albumin 2.6 10/23/20 03:50: Blood Gas Puncture Site LEFT RADIAL, Blood Gas Patient Temperature 37.2, Arterial Blood pH 7.44, Arterial Blood Partial Pressure CO2 45, Arterial Blood Partial Pressure O2 104, Arterial Blood HCO3 30, Arterial Blood Total CO2 31.6, Arterial Blood Oxygen Saturation 99, Arterial Blood Base Excess 6.1, Casper Test POSITIVE, Blood Gas Ventilator Setting YES, Blood Gas Inspired Oxygen 40 10/23/20 06:29: Glucometer 248 10/23/20 10:13: Blood Gas Puncture Site LEFT RADIAL, Blood Gas Patient Temperature 37.5, Arterial Blood pH 7.44, Arterial Blood Partial Pressure CO2 46, Arterial Blood Partial Pressure O2 75, Arterial Blood HCO3 31, Arterial Blood Total CO2 31.8, Arterial Blood Oxygen Saturation 94, Arterial Blood Base Excess 6.4, Casper Test POSITIVE, Blood Gas Ventilator Setting YES, Blood Gas Inspired Oxygen 55 10/23/20 12:03: Glucometer 154 10/23/20 17:28: Glucometer 216 10/23/20 23:41: Blood Gas Puncture Site right radial, Blood Gas Patient Temperature 37.2, Arterial Blood pH 7.48, Arterial Blood Partial Pressure CO2 38, Arterial Blood Partial Pressure O2 66, Arterial Blood HCO3 28, Arterial Blood Total CO2 28.6, Arterial Blood Oxygen Saturation 94, Arterial Blood Base Excess 4.0, Casper Test YES-POS, Blood Gas Ventilator Setting NO, Blood Gas Inspired Oxygen 50% 10/23/20 23:45: Glucometer 194 10/24/20 03:20: White Blood Count 6.3, Red Blood Count 4.34, Hemoglobin 11.9, Hematocrit 38, Josee n Corpuscular Volume 88, Mean Corpuscular Hemoglobin 27, Mean Corpuscular Hemoglobin Concent 31, Red Cell Distribution Width 14.5, Platelet Count 208, Mean Platelet Volume 10.3, Immature Granulocyte % (Auto) 1, Neutrophils (%) (Auto) 71, Lymphocytes (%) (Auto) 18, Monocytes (%) (Auto) 7, Eosinophils (%) (Auto) 2, Basophils (%) (Auto) 1, Neutrophils # (Auto) 4.5, Lymphocytes # (Auto) 1.1, Monocytes # (Auto) 0.4, Eosinophils # (Auto) 0.1, Basophils # (Auto) 0.0, Immature Granulocyte # (Auto) 0.1, Sodium Level 138, Potassium Level 3.6, Chloride Level 101, Carbon Dioxide Level 28, Anion Gap 9, Blood Urea Nitrogen 8, Creatinine 0.61, Estimat Glomerular Filtration Rate 144, BUN/Creatinine Ratio 13, Glucose Level 138, Calcium Level 9.4, Corrected Calcium 10.0, Phosphorus Level 2.3, Magnesium Level 2.0, Total Bilirubin 0.6, Aspartate Amino Transf (AST/SGOT) 82, Alanine Aminotransferase (ALT/SGPT) 104, Alkaline Phosphatase 130, Total Protein 7.3, Albumin 3.3 10/24/20 07:01: Glucometer 154 10/24/20 07:50: Vancomycin Level Trough 14.5 10/24/20 11:21: Glucometer 169 10/24/20 15:27: Glucometer 178 10/24/20 20:09: Glucometer 181 10/25/20 05:12: White Blood Count 6.6, Red Blood Count 4.34, Hemoglobin 11.9, Hematocrit 38, Mean Corpuscular Volume 87, Mean Corpuscular Hemoglobin 27, Mean Corpuscular Hemoglobin Concent 31, Red Cell Distribution Width 14.6, Platelet Count 233, Mean Platelet Volume 10.5, Immature Granulocyte % (Auto) 1, Neutrophils (%) (Auto) 63, Lymphocytes (%) (Auto) 22, Monocytes (%) (Auto) 10, Eosinophils (%) (Auto) 4, Basophils (%) (Auto) 1, Neutrophils # (Auto) 4.2, Lymphocytes # (Auto) 1.4, Monocytes # (Auto) 0.7, Eosinophils # (Auto) 0.2, Basophils # (Auto) 0.1, Immature Granulocyte # (Auto) 0.1, Sodium Level 140, Potassium Level 3.3, Chloride Level 101, Carbon Dioxide Level 25, Anion Gap 14, Blood Urea Nitrogen 8, Creatinine 0.67, Estimat Glomerular Filtration Rate 129, BUN/Creatinine Ratio 12, Glucose Level 161, Calcium Level 9.6, Corrected Calcium 10.1, Phosphorus Level 3.0, Magnesium Level 1.9, Total Bilirubin 0.6, Aspartate Amino Transf (AST/SGOT) 63, Alanine Aminotransferase (ALT/SGPT) 116, Alkaline Phosphatase 109, Total Protein 7.6, Albumin 3.4 10/25/20 10:54: Glucometer 198 10/25/20 15:52: Glucometer 161 10/25/20 20:20: Glucometer 145 10/26/20 05:14: Glucometer 140 10/26/20 07:24: White Blood Count 7.1, Red Blood Count 4.43, Hemoglobin 12.2, Hematocrit 39, Mean Corpuscular Volume 87, Mean Corpuscular Hemoglobin 28, Mean Corpuscular Hemoglobin Concent 32, Red Cell Distribution Width 14.6, Platelet Count 223, Mean Platelet Volume 10.2, Immature Granulocyte % (Auto) 2, Neutrophils (%) (Auto) 58, Lymphocytes (%) (Auto) 25, Monocytes (%) (Auto) 10, Eosinophils (%) ( Auto) 5, Basophils (%) (Auto) 1, Neutrophils # (Auto) 4.1, Lymphocytes # (Auto) 1.8, Monocytes # (Auto) 0.7, Eosinophils # (Auto) 0.4, Basophils # (Auto) 0.0, Immature Granulocyte # (Auto) 0.1, Sodium Level 139, Potassium Level 3.5, Chloride Level 100, Carbon Dioxide Level 25, Anion Gap 14, Blood Urea Nitrogen 11, Creatinine 0.68, Estimat Glomerular Filtration Rate 127, BUN/Creatinine Ratio 16, Glucose Level 142, Uric Acid 7.2, Calcium Level 10.1, Corrected Calcium 10.4, Total Bilirubin 0.6, Aspartate Amino Transf (AST/SGOT) 36, Alanine Aminotransferase (ALT/SGPT) 92, Alkaline Phosphatase 110, Total Protein 7.6, Albumin 3.6 10/26/20 11:22: Glucometer 185 10/26/20 17:03: Glucometer 190 10/26/20 20:12: Glucometer 253 10/27/20 05:22: Glucometer 103 10/27/20 06:10: White Blood Count 6.4, Red Blood Count 4.78, Hemoglobin 13.0, Hematocrit 41, Mean Corpuscular Volume 86, Mean Corpuscular Hemoglobin 27, Mean Corpuscular Hemoglobin Concent 32, Red Cell Distribution Width 14.2, Platelet Count 227, Mean Platelet Volume 10.7, Immature Granulocyte % (Auto) 2, Neutrophils (%) (Auto) 55, Lymphocytes (%) (Auto) 32, Monocytes (%) (Auto) 10, Eosinophils (%) (Auto) 1, Basophils (%) (Auto) 1, Neutrophils # (Auto) 3.5, Lymphocytes # (Auto) 2.1, Monocytes # (Auto) 0.6, Eosinophils # (Auto) 0.1, Basophils # (Auto) 0.0, Immature Granulocyte # (Auto) 0.2, Sodium Level 136, Potassium Level 3.9, Chloride Level 97, Carbon Dioxide Level 29, Anion Gap 10, Blood Urea Nitrogen 14, Creatinine 0.71, Estimat Glomerular Filtration Rate 121, BUN/Creatinine Ratio 20, Glucose Level 117, Calcium Level 10.6, Corrected Calcium 10.7, Total Bilirubin 0.5, Aspartate Amino Transf (AST/SGOT) 34, Alanine Aminotransferase (ALT/SGPT) 86, Alkaline Phosphatase 101, Total Protein 8.4, Albumin 3.9, Smear Scan YES 10/27/20 11:01: Glucometer 274 10/27/20 16:19: Glucometer 213 10/27/20 20:47: Glucometer 205 10/28/20 05:36: Glucometer 110 10/28/20 06:10: White Blood Count 7.3, Red Blood Count 4.49, Hemoglobin 12.1, Hematocrit 39, Mean Corpuscular Volume 87, Mean Corpuscular Hemoglobin 27, Mean Corpuscular Hemoglobin Concent 31, Red Cell Distribution Width 14.5, Platelet Count 209, Mean Platelet Volume 10.5, Immature Granulocyte % (Auto) 2, Neutrophils (%) (Auto) 46, Lymphocytes (%) (Auto) 41, Monocytes (%) (Auto) 8, Eosinophils (%) (Auto) 2, Basophils (%) (Auto) 1, Neutrophils # (Auto) 3.3, Lymphocytes # (Auto) 3.0, Monocytes # (Auto) 0.6, Eosinophils # (Auto) 0.1, Basophils # (Auto) 0.1, Immature Granulocyte # (Auto) 0.2, Sodium Level 137, Potassium Level 3.5, Chloride Level 97, Carbon Dioxide Level 29, Anion Gap 11, Blood Urea Nitrogen 19, Creatinine 0.80, Estimat Glomerular Filtration Rate 105, BUN/Creatinine Ratio 24, Glucose Level 108, Calcium Level 10.2, Corrected Calcium 10.4, Total Bilirubin 0.6, Aspartate Amino Transf (AST/SGOT) 36, Alanine Aminotransferase (ALT/SGPT) 78, Alkaline Phosphatase 83, Total Protein 7.8, Albumin 3.7 10/28/20 06:30: Urine Color YELLOW, Urine Clarity CLEAR, Urine pH 6.0, Urine Specific [place] 1.020, Urine Protein NEGATIVE, Urine Glucose (UA) NEGATIVE, Urine Ketones NEGAT GERARDO, Urine Nitrite NEGATIVE, Urine Bilirubin NEGATIVE, Urine Urobilinogen 0.2, Urine Leukocyte Esterase NEGATIVE, Urine RBC (Auto) NEGATIVE, Urine RBC 0-2, Urine WBC 0-2, Urine Squamous Epithelial Cells NONE, Urine Crystals NONE, Urine Bacteria NEGATIVE, Urine Casts NONE, Urine Mucus NEGATIVE, Urine Culture Indicated NO Discharge Home Medications: Active Scripts Active Reported Omeprazole 40 Mg Capsule.dr 40 Mg PO DAILY PRN Tylenol Extra Strength (Acetaminophen) 500 Mg Tablet 1,000 Mg PO Q8H PRN Tessalon Perles (Benzonatate) 100 Mg Capsule 200 Mg PO TID PRN TAKES 2 (100MG) CAPS Prometh-Codein 6.25-10 mg/5 ml (Promethazine HCl/Codeine) 5 Ml Syrup 5 Ml PO BID PRN Proair Hfa (Albuterol Sulfate) 1 Puff Puff 2 Puff IH Q4H PRN Dexamethasone 4 Mg Tablet 4 Mg PO BID FILLED 10-03-2020 #12/6 DAY SUPPLY Instructions to patient/family Please see electronic discharge instructions given to patient. Diagnosis/Problems Diagnosis/Problems (1) COVID-19 Status: Acute LAYNEJASMYNE DUNNStewart CID Oct 28, 2020 09:57
--- NOTE | 2020-10-28 10:34 | Physical Therapy Daily Note ---
PT Daily Note-Current Subjective Patient agrees to PT. Spouse present. Mental Status Attachments: Oxygen (4L HF) Transfers SCALE: Activities may be completed with or without assistive devices. 5-Mvyyfmlkao-uenicib completes the activity by him/herself with no assistance from a helper. 5-Set-up or Clean-up Assistance-helper sets up or cleans up; patient completes activity. [place] assists only prior to or following the activity. 4-Supervision or Touching Assistance-helper provides verbal cues and/or touching/steadying and/or contact guard assistance as patient completes activity. Assistance may be provided throughout the activity or intermittently. 3-Partial/Moderate Assistance-helper does LESS THAN HALF the effort. [place] lifts, holds or supports trunk or limbs, but provides less than half the effort. 2-Substantial/Maximal Assistance-helper does MORE THAN HALF the effort. [place] lifts or holds trunk or limbs and provides more than half the effort. 7-Iegaffkyg-apavay does ALL the effort. Patient does none of the effort to c omplete the activity. Or, the assistance of 2 or more helpers is required for the patient to complete the activity. If activity was not attempted, code reason: 7-Patient Refused. 9-Not Applicable-not attempted and the patient did not perform the activity before the current illness, exacerbation or injury. 10-Not Attempted due to Environmental Limitations-(lack of equipment, weather restraints, etc.). 88-Not Attempted due to Medical Conditions or Safety Concerns. Sit to Stand (QC): 4 (SBA) Gait Training Does the Patient Walk?: Yes Distance: 125' x 1/600' x 1 Walk 10 feet (QC): 4 (SBA) Walk 50 ft with 2 Turns(QC): 4 (SBA) Walk 150 ft (QC): 4 (SBA) Gait Assistive Device: FWW safe and functional with no deviation Treatments Deep breathing exercises initiated with trunk rotation each way x 5 sets Assessment SAO2 remains at 92% on 4L HF with activity. Patient remains up in recliner. PT Short Term Goals Short Term Goals Time Frame: Nov 07, 2020 Roll Left & Right: 3 Sit to lyin Lying to sitting on side of be: 3 Sit to stand: 3 Chair/trn-fk-okccq transfer: 3 Toilet transfer: 3 Walk 10 feet: 2 Does pt use a wc or scooter: No PT [employer] Loft Worker Goals Mcfp Goals PT Mcfp Goals Time Frame: Dec 05, 2020 Roll Left & Right (QC): 4 Sit to Lying (QC): 4 Lying-Sitting on Side/Bed(QC): 4 Sit to Stand (QC): 4 Chair/Ryx-yi-Oagxx Xfer(QC): 4 Toilet Transfer (QC): 4 Does the Patient Walk: No and Walking Goal IS indicated Walk 10 feet (QC): 4 Walk 50ft with 2 Turns (QC): 4 Walk 150 ft (QC): 3 1 Step (curb) (QC): 3 4 Steps (QC): 3 PT Plan Treatment/Plan Treatment Plan: Continue Plan of Care Treatment Plan: Bed Mobility, Education, Functional Activity Chris, Functional Strength, Group Therapy, Gait, Safety, Therapeutic Exercise, Transfers Treatment Duration: Feb 11, 2021 Frequency: 6 times per week Estimated Hrs Per Day: .25 hour per day Patient and/or Family Agrees t: Yes Time/GCodes Time In: 934 Time Out: 957 Total Billed Treatment Time: 23 Total Billed Treatment 1 visit FA x 2 23 min SHEREEN TREJO PT Oct 28, 2020 10:34
[2020-10-28 10:37] VITALS: BP 123/74
--- NOTE | 2020-10-28 11:21 | Progress Note ---
SPENCER RICHARDSON MED STUDENT 10/28/20 1121: Progress Note Hospital Course: Pollo Evans is a 45 y.o. M with history of newly diagnosed DM2 (A1C 9%) and gout who received his first dose of Pfizer on 09/23/20, experienced Covid-19 symptoms 09/28/20 with diagnosis that same day, and was later hospitalized in [place] for COVID-19 associated respiratory distress. The patient worsened overnight requiring intubation the morning of 10/08/20 and was brought to [facility] ICU. He completed a course of broad spectrum antibiotics for COVID PNA. Antifungal agents were later added after sputum cultures grew fungi. The patient required the vent with PEEP ranging from 14 to 8 until successful extubation on 10/23/20. He tolerated vapotherm on 10/23 and high flow NC on 10/24. The patient was brought to the hospital floor and worked with PT, although he did experience mild post-ventilatory delerium characterized by apocryphal memories which has persisted to IRF admission. CYNTHIA LAYNE DO 10/29/20 0545: Supervisory-Addendum Brief Verification & Attestation Participated in pt care: history, MDM, physical Personally performed: exam, history, MDM, supervision of care Care discussed with: Medical Student Procedures: n/a Results interpretation: Verified all documentation Verification and Attestation of Medical Student E/M Service A medical student performed and documented this service in my presence. I reviewed and verified all information documented by the medical student and made modifications to such information, when appropriate. I personally performed the physical exam and medical decision making. Cynthia Layne, Oct 29, 2020,05:45 SPENCER RICHARDSON MED STUDENT Oct 28, 2020 11:21 CYNTHIA LAYNE DO Oct 29, 2020 05:45
[2020-10-28] MEDS: ENOXAPARIN 40 MG/0.4 ML (LOVENOX) SYR SC SCH (11:38)
[2020-10-28] MEDS ORDERED: RT-ALBUTEROL/IPRATROPIUM 3 ML (DUONEB) VIAL INH SCH (21:00)
== END 2020-10-28 11:30 | DRG 207 ==
LOC: ICU 10:38 → 4TH 10-25 15:02
PROVIDERS: ADMIT Internal Medicine; ATTEND Internal Medicine
PROC: 5A1955Z Respiratory Ventilation, Greater than 96 Consecutive Hours (ICD-10-PCS; principal; 2020-10-08)
DX: U07.1 COVID-19 (principal); J12.82 Pneumonia due to coronavirus disease 2019; J80 Acute respiratory distress syndrome; J15.9 Unspecified bacterial pneumonia; B37.1 Pulmonary candidiasis; Z68.41 Body mass index [BMI] 40.0-44.9, adult; D68.59 Other primary thrombophilia; F05 Delirium due to known physiological condition; K56.7 Ileus, unspecified; E66.9 Obesity, unspecified; E11.65 Type 2 diabetes mellitus with hyperglycemia; G47.33 Obstructive sleep apnea (adult) (pediatric); M10.9 Gout, unspecified; E87.6 Hypokalemia; E78.1 Pure hyperglyceridemia; R13.10 Dysphagia, unspecified; R31.9 Hematuria, unspecified; D64.9 Anemia, unspecified; E03.9 Hypothyroidism, unspecified; Z73.0 Burn-out; F17.220 Nicotine dependence, chewing tobacco, uncomplicated
CPT/HCPCS: 36415; 36569; 71045; 76937; 80048; 80053; 80076; 80202; 81000; 82553; 82728; 82805; 82947; 83605; 83615; 83690; 83735; 83880; 84100; 84145; 84443; 84478; 84484; 84550; 85007; 85025; 85027; 85379; 85610; 85730; 86141; 87040; 87070; 87205; 94002; 94003; 94640; 94664; 94760; 94799

== ENCOUNTER 2020-10-28 09:27 | Inpatient (IN) | payer SELFPAY ==
[~2020-10-28] VITALS: Ht 173 cm; Wt 102.4 kg
[~2020-10-28 09:27] MED LIST changes: +ACET-2267 PO; +DEXA4TAB PO; +OMEP40CA6 PO; +PROM5SYR PO; +RT-ALBUINH IH
[2020-10-28] MEDS ORDERED: diphenhydrAMINE 25 MG TAB (BENADRYL) PO PRN (10:00)
[2020-10-28] MEDS ORDERED: guaiFENesin/CODEINE (ROBITUSSIN AC) 10ML UDC PO PRN (10:00)
[2020-10-28] MEDS ORDERED: CALCIUM CARBONATE 500 MG (TUMS) TAB.CHEW PO PRN (10:00)
[2020-10-28] MEDS ORDERED: ONDANSETRON 4 MG (ZOFRAN) ORAL DISSOLVE TAB PO PRN (10:00)
[2020-10-28] MEDS ORDERED: ALPRAZolam 0.25 MG (XANAX) TAB PO PRN (10:00)
[2020-10-28] MEDS ORDERED: LACTULOSE SYRUP 10GM/15ML (ENULOSE) 30ML UDC PO PRN (10:00)
[2020-10-28] MEDS ORDERED: LOPERAMIDE 2 MG (IMODIUM) TABLET PO PRN (10:00)
[2020-10-28] MEDS ORDERED: MELATONIN 3 MG TABLET PO PRN (10:00)
[2020-10-28] MEDS ORDERED: DOCUSATE SODIUM 100 MG (COLACE) CAP PO PRN (10:00)
[2020-10-28] MEDS ORDERED: BISACODYL 10 MG SUPP (DULCOLAX) PR PRN (10:00)
[2020-10-28] MEDS ORDERED: FLEET ENEMA ADULT 1 EA BTL PR PRN (10:00)
--- NOTE | 2020-10-28 12:33 | Occupational Therapy Eval ---
OT Evaluation-General/PLF Medical Diagnosis Admission Date Medical Diagnosis: Covid 19, resp failure, debility Onset Date: Oct 24, 2020 Therapy Diagnosis Therapy Diagnosis: Impaired adls, iadls, strength, rom, balance, activity tolerance, Height/Weight Height (Feet): 5 Height (Inches): 7.00 Weight (Pounds): 250 Weight (Ounces): 0 Precautions Precautions/Isolations: Fall Prevention, Standard Precautions Referral Physician: monica Referral Reason: Evaluation/Treatment Medical History Pertinent Medical History: DM Additional Medical History Gout, Covid 19 Current History Pt reports living with his spouse in single level home. 1 step to enter. He was indep with ADLs and shared IADL responsibilities with his . He was not using any [employer] and still drives. 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 Reviewed History: Yes Social History Home: Single Level Current Living Status: Spouse Entry Into Home: Stairs With Railing Steps Into Home: 1 ADL-Prior Level of Function SCALE: Activities may be completed with or without assistive devices. 6-Yhungzfxrk-qnatqby completes the activity by him/herself with no assistance from a helper. 5-Set-up or Clean-up Assistance-helper sets up or cleans up; patient completes activity. [place] assists only prior to or following the activity. 4-Supervision or Touching Assistance-helper provides verbal cues and/or touching/steadying and/or contact guard assistance as patient completes activity. Assistance may be provided throughout the activity or intermittently. 3-Partial/Moderate Assistance-helper does LESS THAN HALF the effort. [place] lifts, holds or supports trunk or limbs, but provides less than half the effort. 2-Substantial/Maximal Assistance-helper does MORE THAN HALF the effort. [place] lifts or holds trunk or limbs and provides more than half the effort. 3-Vuoerfkmm-uirfiu does ALL the effort. Patient does none of the effort to complete the activity. Or, the assistance of 2 or more helpers is required for the patient to complete the activity. If activity was not attempted, code reason: 7-Patient Refused. 9-Not Applicable-not attempted and the patient did not perform the activity before the current illness, exacerbation or injury. 10-Not Attempted due to Environmental Limitations-(lack of equipment, weather restraints, etc.). 88-Not Attempted due to Medical Conditions or Safety Concerns. Self Care: Independent Functional Cognition: Independent Drive Self: Yes OT Current Status Subjective Pt denies any pain but does report overall weakness. Agreeable to eval Appearance Pt left sitting in therapy gym with Physical therapy. Mental Status/Objective Patient Orientation: Person, Place, Time, Situation Attachments: IV Current Glasses/Contacts: Yes Hand Dominance: Right Upper Extremity ROM Shoulder flex: ~100 degrees. All movements present bilaterally, but decreased ROM due to weakness. Full PROM BUEs Upper Extremity Coordination Impaired Upper Extremity Strength 2/5 grossly ADL-Treatment Eating (QC): 4 Oral Hygiene (QC): 7 Shower/Bathe Self (QC): 7 Upper Body Dressing (QC): 7 Lower Body Dressing (QC): 3 On/Off Footwear (QC): 3 Toileting Hygiene (QC): 3 Other Treatments Pt sitting in chair at OT arrival. Agreeable to Eval. Sit<>stand: SBA, slightly impulsive. Able to demonstrate clothing management with zero UE support and CGA for safety with balance. While sitting, Increased effort noted to lift feet in order to don/doff becca socks; Min a needed to maintain crossed position. Pt able to take 4-5 steps forward/backward with CGA and use of walker. Slow but steady gait. Several treatment ideas available such as: education on compensatory and energy conservation strategies, strengthening/ROM, balance, functional transfers and overall endurance needed for ADLs and IADLs. Education OT Patient Education: Correct positioning, Disease process, Energy conservation, Modified ADL techniques, Progress toward Goal/Update tx plan, Purpose of tx/functional activities, Reviewed precautions, Rehab process, Safety issues, Transfer techniques Teaching Recipient: Patient Teaching Methods: Discussion Response to Teaching: Verbalize Understanding, Return Demonstration, Reinforcement Needed OT Short Term Goals Short Term Goals Eatin Oral hygiene: 4 Toileting hygiene: 4 Shower/bathe self: 4 Upper body dressin Lower body dressin Putting on/taking off footwear: 4 OT Carpenter Mate Goals Alf Goals Eating (QC): 6 Oral Hygiene (QC): 6 Toileting Hygiene (QC): 6 Shower/Bathe Self (QC): 6 Upper Body Dressing (QC): 6 Lower Body Dressing (QC): 6 On/Off Footwear (QC): 6 1=Demonstrate adherence to instructed precautions during ADL tasks. 2=Patient will verbalize/demonstrate understanding of assistive devices/modifications for ADL. 3=Patient will improve strength/tolerance for activity to enable patient to perform ADL's. OT Education/Plan Problem List/Assessment Assessment: Decreased Activ Tolerance, Decreased Safety Aware, Decreased UE S trength, Impaired Coordination, Impaired Funct Balance, Impaired I ADL's, Impaired Self-Care Skills, Restricted Funct UE ROM Discharge Recommendations Plan/Recommendations: Continue POC Therapy Discharge Recommendati: Home & Family Comment continue to assess Treatment Plan/Plan of Care Treatment,Training & Education: Yes Patient would benefit from OT for education, treatment and training to promote independence in ADL's, mobility, safety and/or upper extremity function for ADL's. Plan of Care: ADL Retraining, Functional Mobility, Group Exercise/Act as Ind, UE Funct Exercise/Act, UE Neuromus Re-Ed/Coord Treatment Duration: Nov 11, 2020 Frequency: At least 5 of 7 days/Wk (IRF) Estimated Hrs Per Day: 1.5 hours per day Agreement: Yes Rehab Potential: Good Due to COVID-19 viral infection, the patient has deficits that warrant inpatient acute rehab. The patient will clearly benefit from intensive PT and OT, however due to patient's observed endurance and therapy considerations, she may not be able to tolerate the full 3 hours of scheduled therapy. Therefore, she will be scheduled for as much therapy as she can tolerate with intentional rest breaks, shortened sessions, including providing therapy across 6 to 7 days. As the patient tolerates, the intensity, frequency, and duration of her therapy program will be increased. Time/GCodes Start Time: 11:30 Stop Time: 11:40 Total Time Billed (hr/min): 10 Billed Treatment Time 1, Tanya Snell OT Oct 28, 2020 12:33
--- NOTE | 2020-10-28 12:41 | Physical Therapy Evaluation ---
PT Evaluation-General Medical Diagnosis Admission Date Medical Diagnosis: post covid 19 debility Onset Date: Oct 24, 2020 Therapy Diagnosis Therapy Diagnosis: impaired mobility, strength, endurance Height/Weight Height (Feet): 5 Height (Inches): 7.00 Weight (Pounds): 250 Weight (Ounces): 0 Referral Physician: Cynthia Macias DO Reason for Referral: Evaluation/Treatment Medical History Pertinent Medical History: DM Additional Medical History gout Reviewed History: Yes Social History Home: Single Level (with basement) Current Living Status: Spouse Entry Into Home: Stairs With Railing PT Steps Into Home: 3 Prior Prior Level of Function SCALE: Activities may be completed with or without assistive devices. 6-Bnjffpszop-rxsigtz completes the activity by him/herself with no assistance from a helper. 5-Set-up or Clean-up Assistance-helper sets up or cleans up; patient completes activity. [place] assists only prior to or following the activity. 4-Supervision or Touching Assistance-helper provides verbal cues and/or touching/steadying and/or contact guard assistance as patient completes activity. Assistance may be provided throughout the activity or intermittently. 3-Partial/Moderate Assistance-helper does LESS THAN HALF the effort. [place] lifts, holds or supports trunk or limbs, but provides less than half the effort. 2-Substantial/Maximal Assistance-helper does MORE THAN HALF the effort. [place] lifts or holds trunk or limbs and provides more than half the effort. 5-Mecdoazrc-bitgfk does ALL the effort. Patient does none of the effort to complete the activity. Or, the assistance of 2 or more helpers is required for the patient to complete the activity. If activity was not attempted, code reason: 7-Patient Refused. 9-Not Applicable-not attempted and the patient did not perform the activity before the current illness, exacerbation or injury. 10-Not Attempted due to Environmental Limitations-(lack of equipment, weather restraints, etc.). 88-Not Attempted due to Medical Conditions or Safety Concerns. Bed Mobility: 6 Transfers (B,C,W/C): 6 Gait: 6 Stairs: 6 Indoor Mobility (Ambulation): Independent Stairs: Independent PT Evaluation-Current Subjective Patient in recliner pre tx, agrees to PT, has no complaints of pain. Pt/Family Goals to be independent at home Objective Patient Orientation: Person, Place, Situation Attachments: Oxygen ROM/Strength ROM Lower Extremities WNL Strength Lower Extremities 4/5 gross BLE Sensory Vision: Functional Hearing: Functional Sensation Right Lower Extremit: Intact Sensation Left Lower Extremity: Intact Transfers Roll Left & Right (QC): 6 Sit to Lying (QC): 6 Lying to Sitting/Side of Bed(Q: 6 Sit to Stand (QC): 4 Chair/Rno-fq-Huehq Xfer(QC): 4 Toilet Transfer (QC): 4 Car Transfer (QC): 4 Patient performed bed mobility and supine <-> sit with independence, sit <-> stand and transfers with CGA, car transfer CGA. Patient needs cues for positioning and hand placement, will often get wound up in his O2 line. Gait Does the Patient Walk?: Yes Mode of Locomotion: Walk Anticipated Mode of Locomotion: Walk Walk 10 feet (QC): 4 Walk 50 ft with 2 Turns(QC): 4 Walk 150 ft (QC): 4 Walking 10ft/uneven surface-QC: 4 Distance: 400', 120' Gait Assistive Device: FWW Comments/Gait Description Patient can ambulate 400' with a rolling walker with CGA (including 50' with at least 2 turns of 90 degrees and 10' over an uneven surface). Patient ambulates slowly but steady, needs cues for direction. Wheelchair Training Does the Pt Use a Wheelchair?: No Wheel 50 ft with 2 turns (QC): 9 Wheel 150 ft (QC): 9 Stairs #of Steps: 4 1 Step (curb) (QC): 4 4 Steps (QC): 4 12 Steps (QC): 88 Patient can go up and down 4 steps using 2 handrails with CGA, cues for foot placement and safety. Balance Sitting Static: Normal Sitting Dynamic: Normal Standing Static: Fair Standing Dynamic: Fair Picking up an Object (QC): 4 Treatment Nustep level 5 for 10'. Assessment/Needs Patient has impaired mobiltiy, strength, endurance. Patient in recliner post tx with nurse call, phone, tray, all needs met. Patient is mostly CGA for mobility but needs cues for safety and tends to get wound up in his O2 line. Patient needs frequent rest breaks due to fatigue. Rehab Potential: Fair PT Short Term Goals Short Term Goals Time Frame: Nov 04, 2020 Roll Left & Right: 6 Sit to lyin Lying to sitting on side of be: 6 Sit to stand: 5 Chair/aws-ny-smoza transfer: 5 Walk 10 feet: 5 Walk 50 feet with two turns: 5 Walk 150 feet: 5 PT Skilled Nursing Goals Skilled Nursing Goals PT Skilled Nursing Goals Time Frame: Nov 18, 2020 Roll Left & Right (QC): 6 Sit to Lying (QC): 6 Lying-Sitting on Side/Bed(QC): 6 Sit to Stand (QC): 6 Chair/Mbj-jh-Ecpyv Xfer(QC): 6 Toilet Transfer (QC): 6 Car Transfer (QC): 6 Does the Patient Walk: Yes Walk 10 feet (QC): 6 Walk 50ft with 2 Turns (QC): 6 Walk 150 ft (QC): 6 Walking 10ft on Uneven Surface: 6 1 Step (curb) (QC): 5 4 Steps (QC): 5 12 Steps (QC): 5 Picking up an Object (QC): 6 Wheel 50 feet with 2 turns (QC: 9 Wheel 150 feet: 9 PT Plan Problem List Problem List: Activity Tolerance, Functional Strength, Safety, Balance, Gait, Transfer, ROM Treatment/Plan Treatment Plan: Continue Plan of Care Treatment Plan: Education, Functional Activity Chris, Functional Strength, Ga it, Safety, Therapeutic Exercise, Transfers Treatment Duration: Nov 18, 2020 Frequency: Modified Program (IRF) Estimated Hrs Per Day: 1 hour per day Patient and/or Family Agrees t: Yes Due to a covid - 19 viral infection, the patient has deficits that warrant inpatient acute rehab. The patient will clearly benefit from intensive PT and OT, however, due to the patient's observed endurance and therapy considerations, he may not be able to tolerate the full 3 hours of scheduled therapy. Therefore, he will be scheduled for as much therapy as he can tolerate with intentional rest breaks, shortened sessions, including providing therapy across 6 to 7 days. As the patient tolerates, the intensity, frequency, and duration of his therapy program will be increased. Safety Risks/Education Patient Education: Gait Training, Transfer Techniques, Steps, Correct Positioning, Safety Issues Teaching Recipient: Patient Teaching Methods: Demonstration, Discussion Response to Teaching: Reinforcement Needed Discharge Recommendations Plan Patient will perform bed mobility and transfer training, balance and endurance training, functional strengthening, stair training, gait training, and educ ation, to improve functional mobility and independence at home. Therapy Discharge Recommendati: Home & Family, Post Acute PT Time/GCodes Time In: 8285 Time Out: 1225 Total Billed Treatment Time: 60 Total Billed Treatment 1 visit EVM 15' EX 10' FA 35' PT eval from [id number], OT eval from [id number], PT treatment from [id number] ANTHONY CORNEJO PT Oct 28, 2020 12:40
--- NOTE | 2020-10-28 12:44 | Progress Note ---
SPENCER RICHARDSON MED STUDENT 10/28/20 1244: Progress Note History & Physical: Per hospital discharge summary: Hospital Course: Pollo Evans is a 45 y.o. M with history of newly diagnosed DM2 (A1C 9%) and gout who received his first dose of Pfizer on 09/23/20, experienced Covid-19 symptoms 09/28/20 with diagnosis that same day, and was later hospitalized in [place] for COVID-19 associated respiratory distress. The patient worsened overnight requiring intubation the morning of 10/08/20 and was brought to [facility] ICU. He completed a course of broad spectrum antibiotics for COVID PNA. Antifungal agents were later added after sputum cultures grew fungi. The patient required the vent with PEEP ranging from 14 to 8 until successful extubation on 10/23/20. He tolerated vapotherm on 10/23 and high flow NC on 10/24. The patient was brought to the hospital floor and worked with PT, although he did experience mild post-ventilatory delerium characterized by apocryphal memories which has persisted to IRF admission. PMH: gout, new onset DM, recent Covid-19 Surgical history: tympanostomy tubes Medications: allopurinol PRN, occasional ibuprofen/tylenol for MSK pain. Allergies: no known drug allergies, no food allergies per Family History: unknown Social History: active lifestyle, former social drinker (stopped several years ago d/t gout), no recreational drug use, chews tobacco. ROS: General: denies fevers, chills HEENT: denies dizziness, congestion. Respiratory: positive for SOB, denies cough CV: denies chest pain, palpitations GI: denies constipation, abdominal pain. Neuro: positive for generalized weakness, positive for confusion per MSK: positive for right great toe pain (gout), positive for low back pain (gout). Physical Exam: General: alert, fixes gaze and rarely blinks. Pleasant, conversational. HEENT: no sinus congestion, normocephalic Respiratory: minimally coarse breath sounds throughout, no crackles, no wheezing. CV: Regular rate and rhythm, no murmurs. Occasional S3 gallop. 2+ pulses all extremities. Abdomen: nontender, nondistended. Neuro: able to move all extremities, mild UE tremor due to weakness. No facial droop. Psych: A&O x3, some fanciful thoughts and made-up stories. Extremites: No LE erythema or edema. Assessment and Plan: recent ARF, COVID-19 PNA s/p 15 days intubation on oxygen via nasal cannula gout -allopurinol PRN post-ICU psychosis -nonviolent, not agitated, mild -continue to monitor; conservative therapy -UTI excluded via UA. No infectious symptoms. Steroids discontinued. Generalized weakness -working with PT and OT. Rapid progress with PT so far -continue therapy DM2 -new diagnosis. Continue glycemic control DVT/PE prophylaxis CYNTHIA LAYNE DO 10/29/20 0547: Supervisory-Addendum Brief Verification & Attestation Participated in pt care: history, MDM, physical Personally performed: exam, history, MDM, supervision of care Care discussed with: Medical Student Procedures: n/a Results interpretation: Verified all documentation Verification and Attestation of Medical Student E/M Service A medical student performed and documented this service in my presence. I reviewed and verified all information documented by the medical student and made modifications to such information, when appropriate. I personally performed the physical exam and medical decision making. Cynthia Layne, Oct 29, 2020,05:47 SPENCER RICHARDSON MED STUDENT Oct 28, 2020 12:44 CYNTHIA LAYNE DO Oct 29, 2020 05:47
--- NOTE | 2020-10-28 13:46 | Occupational Ther Daily Note ---
OT Current Status-Daily Note Subjective Pt alert, sitting in recliner. Pt agrees to therapy. No c/o pain at this time. Mental Status/Objective Patient Orientation: Person, Place, Time, Situation Attachments: IV, Oxygen (5L) ADL-Treatment Pt agrees to shower. After session, pt sitting in recliner with call light/phone in reach. All needs met in room. Therapy Code Descriptions/Definitions Functional [place] Measure: 0=Not Assessed/NA 4=Minimal Assistance 1=Total Assistance 5=Supervision or Setup 2=Maximal Assistance 6=Modified [place] 3=Moderate Assistance 7=Complete IndependenceSCALE: Activities may be completed with or without assistive devices. 8-Hrgqbdqgud-zropnti completes the activity by him/herself with no assistance from a helper. 5-Set-up or Clean-up Assistance-helper sets up or cleans up; patient completes activity. Anderson assists only prior to or following the activity. 4-Supervision or Touching Assistance-helper provides verbal cues and/or touching/steadying and/or contact guard assistance as patient completes activity. Assistance may be provided throughout the activity or intermittently. 3-Partial/Moderate Assistance-helper does LESS THAN HALF the effort. Anderson lifts, holds or supports trunk or limbs, but provides less than half the effort. 2-Substantial/Maximal Assistance-helper does MORE THAN HALF the effort. Anderson lifts or holds trunk or limbs and provides more than half the effort. 3-Ipszbzwzk-kntpqy does ALL the effort. Patient does none of the effort to complete the activity. Or, the assistance of 2 or more helpers is required for the patient to complete the activity. If activity was not attempted, code reason: 7-Patient Refused. 9-Not Applicable-not attempted and the patient did not perform the activity before the current illness, exacerbation or injury. 10-Not Attempted due to Environmental Limitations-(lack of equipment, weather restraints, etc.). 88-Not Attempted due to Medical Conditions or Safety Concerns. Eating (QC): 5 (Per clinical judgment, pt requires set up for eating then completes by self.) Oral Hygiene (QC): 5 (Using clinical judgment, pt able to complete after set up.) Bathing Location: L Arm, R Arm, L Upper Leg, R Upper Leg, Chest, Abdomen, Buttocks, Perineal Area Shower/Bathe Self (QC): 3 (Sitting on shower bench, using using grabbar and hand held shower pt able to complete all areas except feet. Mod A for sit to stand to keyboard instrument repairer shower then min A to stabilize while pt cleansed buttocks/courtney area.) Upper Body Dressing (QC): 4 (Set up and manipulation of O2 tubing while donning/doffing shirt.) Lower Body Dressing (QC): 3 (Assist to thread feet and lower legs into pant leg then min A to stabilize while pt hikes pants over hips.) On/Off Footwear: 2 (Max A to don socks, able to doff socks by self.) Toileting Hygiene (QC): 3 (Min A to stabilize in standing while pt completes hygiene and clothing manipulation) Toilet Transfer (QC): 3 (Mod A for sit <--> stand) OT Short Term Goals Short Term Goals Eatin Oral hygiene: 4 Toileting hygiene: 4 Shower/bathe self: 4 Upper body dressin Lower body dressin Putting on/taking off footwear: 4 OT Custodial Goals Custodial Goals Eating (QC): 6 Oral Hygiene (QC): 6 Toileting Hygiene (QC): 6 Shower/Bathe Self (QC): 6 Upper Body Dressing (QC): 6 Lower Body Dressing (QC): 6 On/Off Footwear (QC): 6 1=Demonstrate adherence to instructed precautions during ADL tasks. 2=Patient will verbalize/demonstrate understanding of assistive devices/modifications for ADL. 3=Patient will improve strength/tolerance for activity to enable patient to perform ADL's. OT Education/Plan Problem List/Assessment Assessment: Decreased Activ Tolerance, Decreased Safety Aware, Decreased UE Strength, Impaired Self-Care Skills, Restricted Funct UE ROM Discharge Recommendations Plan/Recommendations: Continue POC Treatment Plan/Plan of Care Patient would benefit from OT for education, treatment and training to promote independence in ADL's, mobility, safety and/or upper extremity function for ADL's. Plan of Care: ADL Retraining, Functional Mobility, Group Exercise/Act as Ind, UE Funct Exercise/Act, UE Neuromus Re-Ed/Coord Treatment Duration: Nov 11, 2020 Frequency: At least 5 of 7 days/Wk (IRF) Estimated Hrs Per Day: 1.5 hours per day Agreement: Yes Rehab Potential: Fair Time/GCodes Start Time: 12:30 Stop Time: 13:30 Total Time Billed (hr/min): 60 Billed Treatment Time 1 visit-ADL 4 (60 min) LAURA JACKSON Oct 28, 2020 13:46
[2020-10-28 17:50] VITALS: BP 144/79
[2020-10-28] MEDS ORDERED: OLANZapine 5 MG ODT (ZyPREXA ZYDIS) PO PRN (18:45)
[2020-10-28] MEDS ORDERED: HALOPERIDOL 5 MG/ML (HALDOL) VIAL IM PRN (18:45)
[2020-10-28] MEDS ORDERED: LORazepam INJ 2 MG/ML (ATIVAN) VIAL IVP PRN (18:45)
[2020-10-28 20:05] VITALS: BP 121/60
[2020-10-28] MEDS: RT-ALBUTEROL/IPRATROPIUM 3 ML (DUONEB) VIAL INH SCH (20:30)
--- NOTE | 2020-10-28 20:41 | PM&R Post Admission Assessment ---
PM&R Date of Visit: Oct 28, 2020 Time of Visit: 12:00 History of Present Illness Chief complaint: COVID-19 pneumonia debility History of present illness: This is a 45-year-old white male who I have taken care of from admission to [facility] on 09/28/2020 which progressed to intubation prior to transfer to higher level of care to [facility] who ultimately required 15 days of intubation until finally being able to be weaned. Currently he is dramatically improved weaning down off oxygen and will require aggressive therapy to regain independence. History & Physical: by Oseas Power Per hospital discharge summary: Hospital Course: Pollo Evans is a 45 y.o. M with history of newly diagnosed DM2 (A1C 9%) and gout who received his first dose of Pfizer on 09/23/20, experienced Covid-19 symptoms 09/28/20 with diagnosis that same day, and was later hospitalized in [facility] for COVID-19 associated respiratory distress. The patient worsened overnight requiring intubation the morning of 10/08/20 and was brought to [facility] ICU. He completed a course of broad spectrum antibiotics for COVID PNA. Antifungal agents were later added after sputum cultures grew fungi. The patient required the vent with PEEP ranging from 14 to 8 until successful extubation on 10/23/20. He tolerated vapotherm on 10/23 and high flow NC on 10/24. The patient was brought to the hospital floor and worked with PT, although he did experience mild post-ventilatory delerium characterized by apocryphal memories which has persisted to IRF admission. PMH: gout, new onset DM, recent Covid-19 Surgical history: tympanostomy tubes Medications: allopurinol PRN, occasional ibuprofen/tylenol for MSK pain. Allergies: no known drug allergies, no food allergies per Family History: unknown Social History: active lifestyle, former social drinker (stopped several years ago d/t gout), no recreational drug use, chews tobacco. ROS: General: denies fevers, chills HEENT: denies dizziness, congestion. Respiratory: positive for SOB, denies cough CV: denies chest pain, palpitations GI: denies constipation, abdominal pain. Neuro: positive for generalized weakness, positive for confusion per MSK: positive for right great toe pain (gout), positive for low back pain (gout). Physical Exam: General: alert, fixes gaze and rarely blinks. Pleasant, conversational. HEENT: no sinus congestion, normocephalic Respiratory: minimally coarse breath sounds throughout, no crackles, no wheezing. CV: Regular rate and rhythm, no murmurs. Occasional S3 gallop. 2+ pulses all extremities. Abdomen: nontender, nondistended. Neuro: able to move all extremities, mild UE tremor due to weakness. No facial droop. Psych: A&O x3, some fanciful thoughts and made-up stories. Extremites: No LE erythema or edema. Assessment and Plan: recent ARF, COVID-19 PNA s/p 15 days intubation on oxygen via nasal cannula gout -allopurinol PRN post-ICU psychosis -nonviolent, not agitated, mild -continue to monitor; conservative therapy -UTI excluded via UA. No infectious symptoms. Steroids discontinued. Generalized weakness -working with PT and OT. Rapid progress with PT so far -continue therapy DM2 -new diagnosis. Continue glycemic control DVT/PE prophylaxis Past Sxskviu-Bcldgi-Viunkh Hx Past Med/Social Hx: Reviewed Nursing Past Med/Soc Hx, Reviewed and Corrections made Patient Social History Marrital Status: Employed/Student: employed Alcohol Use: Denies Use Smoking Status: Never a Smoker Type Used: Smokeless Tobacco 2nd Hand Smoke Exposure: No Recent Hopitalizations: No Immunizations Up To Date Pediatric: Yes Seasonal Allergies Seasonal Allergies: No Past Medical History Surgeries: Ear Surgery, Renal COVID-19 pneumonia 09/28/2020 required intubation for 15 days Neurological: Concussion Reproductive: No Sexually Transmitted Disease: No HIV/AIDS: No Genitourinary: Kidney Stones Musculoskeletal: Gout Endocrine: Hypothyroidsim, Diabetes, Non-Insulin dep History of Blood Disorders: No Adverse Reaction to Blood Thomson: No Family History No Pertinent Family Hx Prior Level of Function Bed Mobility: 6 Transfers: 6 Gait: 6 Stairs: 6 Indoor Mobility (Ambulation): Independent Stairs: Independent Self Care: Independent Functional Cognition: Independent Drive Self: Yes Current Level of Fuctioning Roll Left to Right: 6 Sit to Lyin Lying to Sitting/Side of Bed: 6 Sit to Stand: 4 Chair/Jml-vn-Oegzu Xfer: 4 Car Transfer: 4 Does the Patient Walk: Yes Mode of Locomotion: Walk Anticipated Mode of Locomotion: Walk Walk 10 feet: 4 Walk 50 ft with 2 Turns: 4 Walk 150 ft: 4 Walking 10ft on uneven surface: 4 Gait Assistive Device: FWW Does the Pt Use a Wheelchair: No Wheel 50 ft with 2 turns: 9 Wheel 150 ft: 9 #of Steps: 4 1 Step (curb): 4 4 Steps: 4 12 Steps: 88 Picking up an Object: 4 Eatin (Per clinical judgment, pt requires set up for eating then completes by self.) Oral Hygiene: 5 (Using clinical judgment, pt able to complete after set up.) Shower/Bathe Self: 3 (Sitting on shower bench, using using grabbar and hand h eld shower pt able to complete all areas except feet. Mod A for sit to stand to box spinner shower then min A to stabilize while pt cleansed buttocks/courtney area.) Upper Body Dressin (Set up and manipulation of O2 tubing while donnin g/doffing shirt.) Lower Body Dressin (Assist to thread feet and lower legs into pant leg then min A to stabilize while pt hikes pants over hips.) On/Off Footwear: 2 (Max A to don socks, able to doff socks by self.) Toileting Hygiene: 3 (Min A to stabilize in standing while pt completes hygiene and clothing manipulation) Toilet Transfer: 3 (Mod A for sit <--> stand) PM&R Allergy/Meds/Data Review Allergies Coded Allergies: No Known Drug Allergies (Unverified , 04/02/12) Home Medications Scheduled Dexamethasone (Dexamethasone), 4 MG PO BID, (Reported) Scheduled PRN Acetaminophen (Tylenol Extra Strength), 1,000 MG PO Q8H PRN for PAIN-MILD (1-4), (Reported) Albuterol Sulfate (Proair Hfa), 2 PUFF IH Q4H PRN for SHORTNESS OF BREATH, (Reported) Benzonatate (Tessalon Perles), 200 MG PO TID PRN for COUGH, (Reported) Omeprazole (Omeprazole), 40 MG PO DAILY PRN for HEARTBURN, (Reported) Promethazine HCl/Codeine (Prometh-Codein 6.25-10 mg/5 ml), 5 ML PO BID PRN for COUGH, (Reported) Current Medications Current Medications Reviewed Laboratory Data Laboratory Tests 10/28/20 16:36: Glucometer 231H Review of Systems Constitutional: see HPI, malaise, weakness EENTM: no symptoms reported Respiratory: dyspnea on exertion Cardiovascular: no symptoms reported Gastrointestinal: no symptoms reported Genitourinary: no symptoms reported Musculoskeletal: back pain Skin: no symptoms reported Psychiatric/Neurological: Anxiety, Depressed All Other Systems Reviewed Negative Unless Noted: Yes Physical Exam Physical Exam Vital Signs Vital Signs - First Documented 10/28/20 10/28/20 16:00 17:50 Temp 36.8 Pulse 84 Resp 20 B/P (MAP) 144/79 (100) Pulse Ox 97 O2 Delivery High Flow N/C O2 Flow Rate 4.50 Capillary Refill : Height, Weight, BMI Height: 5'7.00" Weight: 250lbs. 0oz. 113.091941ky; 34.21 BMI Method:Stated General Appearance: No Apparent Distress, WD/WN, Anxious, Chronically ill Eyes: Bilateral Eye Normal Inspection, Bilateral Eye PERRL HEENT: PERRL/EOMI, Normal ENT Inspection, Pharynx Normal Neck: Full Range of Motion, Normal Inspection, Non Tender, Supple, Carotid Bruit Respiratory: Chest Non Tender, Lungs Clear, No Accessory Muscle Use, No Respiratory Distress, Decreased Breath Sounds Cardiovascular: Regular Rate, Rhythm, No Edema, No Gallop, No JVD, No Murmur, Normal Peripheral Pulses Gastrointestinal: Normal Bowel Sounds, No Organomegaly, No Pulsatile Mass, Non Tender, Soft Back: Normal Inspection, No CVA Tenderness, No Vertebral Tenderness Extremity: Normal Capillary Refill, Normal Inspection, Normal Range of Motion, Non Tender, No Calf Tenderness, No Pedal Edema Neurologic/Psychiatric: Alert, Oriented x3, Normal Mood/Affect, heel emery buffer II-XII Norm as Tested, Disoriented (subtle), Motor Weakness (generalized 3/5) Skin: Normal Color, Warm/Dry Lymphatic: No Adenopathy PM&R Medical Assessment & Plan REHAB/MEDICAL ASSESSMENT AND PLAN: REHAB IMPAIRMENT GROUP: COVID-19 ETIOLOGIC DIAGNOSIS: COVID-19 The comorbidities that impact the patients function and/or functional outcome by: Severe debility from 15-day intubation, diabetes igl-ai-eixmtys, gout attack, ICU psychosis REHAB PLAN: The patient is being admitted to our comprehensive inpatient rehabilitation facility and can tolerate the intensity of service consisting of at least: 180 minutes of therapy a day, 5 out of 7 days a week Rehab treatment will consist of: PT and OT will focus on regaining function with ambulatory skills and independence in ADLs in order to return back to independent living The patient/family has a good understanding of our discharge process and will benefit from an interdisciplinary inpatient rehabilitation program. The patient has potential to make improvement and is in need of at least two of the following multidisciplinary therapies including but not limited to physical, occupational, speech, and prosthetics and orthotics. Additionally the patient will need services from respiratory, nutritional services, wound care, psychology, etc. (Customize this to each patient). Given the patients complex condition and risk of further medical complications, rehabilitation services cannot be safely or effectively provided at a lower level of care such as a usp facility. BARRIERS TO DISCHARGE: Severe debility from COVID-19 in 15 days of intubation ESTIMATED LOS: 14 days DISPOSITION: Home RELEVANT CHANGES SINCE PREADMISSION SCREENING: I have compared the patients medical and functional status at the time of the preadmission screening and there are: No changes PROGNOSIS: Good REHABILITATION GOALS: 1. PT and OT will focus on regaining function with ambulatory skills and independence in ADLs in order to return back to independent living All the above goals were reviewed with the patient and he/she is in agreement. By signing this document, I acknowledge that I have personally performed a full physical examination on this patient within 24 hours of admission to this inpatient rehabilitation facility and have determined the patient to be able to tolerate the above course of treatment at an intensive level for a reasonable period of time. I will be completing a detailed individualized Plan of Care for this patient by day #4 of the patients stay based upon the Preadmission Screen, the Post-Admission Evaluation, and the therapy evaluations. Admission Dx/Comorbidities: (1) COVID-19 Status: Acute ICD Codes: U07.1 - COVID-19 (2) Diabetes mellitus, new onset ICD Codes: E11.9 - Type 2 diabetes mellitus without complications (3) Gout attack Status: Acute Assessment/Plan Assessment and Plan Assess & Plan/Chief Complaint Assessment: COVID-19 pneumonia with severe debility Status post 15 days of ventilator support New onset hypothyroidism New onset diabetes hemoglobin A1c 9.0 at [facility] 09/28/2020 Gout with acute gout attack ICU psychosis Anemia Plan: Aggressive therapy ICU psychosis management MIKAELA LAYNE DO Oct 28, 2020 20:41
[2020-10-28] MEDS: inSUlin ASPART (NovoLOG) 1 UNIT/0.01 ML (CHARGE PER UNIT) SC SCH (20:49)
[2020-10-28] MEDS: SENNA W/DOCUSATE (SENOKOT S) TABLET PO SCH (21:27)
[2020-10-28] MEDS: MELATONIN 3 MG TABLET PO SCH (21:28)
[2020-10-28] MEDS: polyethylene glycoL POWDER 17 GM (MIRALAX) PACK PO SCH (21:28)
[2020-10-28] MEDS: DOCUSATE SODIUM 100 MG (COLACE) CAP PO SCH (21:28)
[2020-10-29] MEDS: inSUlin ASPART (NovoLOG) 1 UNIT/0.01 ML (CHARGE PER UNIT) SC SCH ×4 (05:10→21:43)
[2020-10-29] MEDS: LEVOTHYROXINE 75 MCG (LEVOTHROID) TABLET PO SCH (06:00)
[2020-10-29] MEDS: ALLOPURINOL 100 MG (ZYLOPRIM) TAB PO SCH (06:00)
[2020-10-29 06:09] LABS: BASOPHILS % (AUTO) 1 % (0-10); EOSINOPHILS # (AUTO) 0.5 10^3/uL (0.0-0.3); EOSINOPHILS % (AUTO) 7 % (0-10); HEMATOCRIT 36 % (40-54); HEMOGLOBIN 11.2 g/dL (13.3-17.7); LYMPHOCYTES # (AUTO) 2.7 10^3/uL (1.0-4.0); LYMPHOCYTES % (AUTO) 39 % (12-44); MEAN CORPUSCULAR HEMOGLOBIN 27 pg (25-34); MEAN CORPUSCULAR HGB CONC 32 g/dL (32-36); MEAN CORPUSCULAR VOLUME 86 fL (80-99); MEAN PLATELET VOLUME 10.8 fL (9.0-12.2); MONOCYTES # (AUTO) 0.5 10^3/uL (0.0-1.0); MONOCYTES % (AUTO) 7 % (0-12); NEUTROPHILS % (AUTO) 44 % (42-75); PLATELET COUNT 228 10^3/uL (130-400)
[2020-10-29 06:31] LABS: ALBUMIN 3.7 GM/DL (3.2-4.5); POTASSIUM 3.5 MMOL/L (3.6-5.0)
[2020-10-29 06:33] LABS: TOTAL PROTEIN 7.6 GM/DL (6.4-8.2)
[2020-10-29 06:35] LABS: BILIRUBIN,TOTAL 0.6 MG/DL (0.1-1.0)
[2020-10-29 06:37] LABS: CREATININE SERUM 0.78 MG/DL (0.60-1.30)
[2020-10-29 07:38] VITALS: BP 117/72
[2020-10-29] MEDS: RT-ALBUTEROL/IPRATROPIUM 3 ML (DUONEB) VIAL INH SCH ×2 (07:51→21:30)
--- NOTE | 2020-10-29 08:53 | Pulmonary Progress Note ---
Subjective Date Seen by a Provider: Oct 29, 2020 Time Seen by a Provider: 08:51 Subjective/Events-last exam Clinically improved; on 3l o2 Sepsis Event Evaluation Height, Weight, BMI Height: 5'7.00" Weight: 250lbs. 0oz. 113.854374my; 34.21 BMI Method:Stated Exam Exam Patient acknowledged, consented, and participated in this virtual visit which was conducted using real time audio/video Vital Signs Date Time Temp Pulse Resp B/P (MAP) Pulse Ox O2 Delivery O2 Flow Rate FiO2 10/29/20 07:51 98 Nasal Cannula 3.00 10/29/20 07:38 36.2 78 20 117/72 (87) 96 Nasal Cannula 5.00 10/28/20 21:33 98 Nasal Cannula 4.00 10/28/20 20:30 98 Nasal Cannula 4.00 10/28/20 20:05 36.4 83 20 121/60 (80) 97 Nasal Cannula 5.00 10/28/20 17:50 36.8 84 20 144/79 (100) 97 Nasal Cannula 5.00 10/28/20 16:00 High Flow N/C 4.50 Height & Weight Height: 5'7.00" Weight: 250lbs. 0oz. 113.935853ko; 34.21 BMI Method:Stated General Appearance: No Apparent Distress, WD/WN, Anxious, Chronically ill HEENT: PERRL/EOMI, Normal ENT Inspection, Pharynx Normal Neck: Full Range of Motion, Normal Inspection, Non Tender, Supple, Carotid Bruit Respiratory: Chest Non Tender, Lungs Clear, No Accessory Muscle Use, No Respiratory Distress, Decreased Breath Sounds Cardiovascular: Regular Rate, Rhythm, No Edema, No Gallop, No JVD, No Murmur, Normal Peripheral Pulses Extremity: Normal Capillary Refill, Normal Inspection, Normal Range of Motion, Non Tender, No Calf Tenderness, No Pedal Edema Neurologic/Psychiatric: Alert, Oriented x3, Normal Mood/Affect, tree driller II-XII Norm as Tested, Disoriented (subtle), Motor Weakness (generalized 3/5) Skin: Normal Color, Warm/Dry Lymphatic: No Adenopathy Results Lab Laboratory Tests 10/29/20 05:15 Assessment/Plan Assessment/Plan COVID related hypoxemic resp failure: much improved o2 3L PT OT in progress. SANTIAGO MIRELES MD Oct 29, 2020 08:53
[2020-10-29] MEDS: SENNA W/DOCUSATE (SENOKOT S) TABLET PO SCH ×2 (08:59→21:45)
[2020-10-29] MEDS: DOCUSATE SODIUM 100 MG (COLACE) CAP PO SCH ×2 (08:59→21:45)
--- NOTE | 2020-10-29 08:59 | Physical Therapy Daily Note ---
PT Daily Note-Current Subjective Patient in recliner pre tx, agrees to PT, has no pain but states the stepper yesterday caused his right ankle to swell. Appearance Patient in recliner post tx with nurse call, phone, tray, all needs met. Mental Status Patient Orientation: Person, Place, Situation Attachments: Oxygen Transfers SCALE: Activities may be completed with or without assistive devices. 9-Vzpdtfxvnc-iuodehu completes the activity by him/herself with no assistance from a helper. 5-Set-up or Clean-up Assistance-helper sets up or cleans up; patient completes activity. [place] assists only prior to or following the activity. 4-Supervision or Touching Assistance-helper provides verbal cues and/or touching/steadying and/or contact guard assistance as patient completes activity. Assistance may be provided throughout the activity or intermittently. 3-Partial/Moderate Assistance-helper does LESS THAN HALF the effort. [place] lifts, holds or supports trunk or limbs, but provides less than half the effort. 2-Substantial/Maximal Assistance-helper does MORE THAN HALF the effort. [place] lifts or holds trunk or limbs and provides more than half the effort. 8-Efbhhhltn-tysqpd does ALL the effort. Patient does none of the effort to complete the activity. Or, the assistance of 2 or more helpers is required for the patient to complete the activity. If activity was not attempted, code reason: 7-Patient Refused. 9-Not Applicable-not attempted and the patient did not perform the activity befo re the current illness, exacerbation or injury. 10-Not Attempted due to Environmental Limitations-(lack of equipment, weather re straints, etc.). 88-Not Attempted due to Medical Conditions or Safety Concerns. Sit to Stand (QC): 4 Chair/Bdk-up-Yaqwg Xfer(QC): 4 SBA, occasional cues for hand placement Gait Training Distance: 300', 150'x2 Walk 10 feet (QC): 4 Walk 50 ft with 2 Turns(QC): 4 Walk 150 ft (QC): 4 Gait Assistive Device: FWW SBA, slow but steady ambulation Exercises Seated Therapy Exercises: Ankle pumps, Hip flexion, Hip abd/add (with ball and RTB) Seated Reps: 20 Standing: Hip Abduction, Hamstring curls, Heel/toe raises, Marching, Mini squats Standing Reps: 15 bilateral calf stretching, BLE LAQ alternating for 5 min, lunges hold for 30 sec each side Treatments transfers, ambulation, functional strengthening Assessment Current Status: Fair Progress SOB with activity, needs frequent rest breaks PT Short Term Goals Short Term Goals Time Frame: Nov 04, 2020 Roll Left & Right: 6 Sit to lyin Lying to sitting on side of be: 6 Sit to stand: 5 Chair/duz-tk-aqvgw transfer: 5 Walk 10 feet: 5 Walk 50 feet with two turns: 5 Walk 150 feet: 5 PT Assessment Coordinator Goals Assessment Coordinator Goals PT Assessment Coordinator Goals Time Frame: Nov 18, 2020 Roll Left & Right (QC): 6 Sit to Lying (QC): 6 Lying-Sitting on Side/Bed(QC): 6 Sit to Stand (QC): 6 Chair/Hzj-df-Omzcb Xfer(QC): 6 Toilet Transfer (QC): 6 Car Transfer (QC): 6 Does the Patient Walk: Yes Walk 10 feet (QC): 6 Walk 50ft with 2 Turns (QC): 6 Walk 150 ft (QC): 6 Walking 10ft on Uneven Surface: 6 1 Step (curb) (QC): 5 4 Steps (QC): 5 12 Steps (QC): 5 Picking up an Object (QC): 6 Wheel 50 feet with 2 turns (QC: 9 Wheel 150 feet: 9 PT Plan Problem List Problem List: Activity Tolerance, Functional Strength, Safety, Balance, Gait, Transfer, ROM Treatment/Plan Treatment Plan: Continue Plan of Care Treatment Plan: Education, Functional Activity Chris, Functional Strength, Gait, Safety, Therapeutic Exercise, Transfers Treatment Duration: Nov 18, 2020 Frequency: Modified Program (IRF) Estimated Hrs Per Day: 1 hour per day Patient and/or Family Agrees t: Yes Safety Risks/Education Patient Education: Gait Training, Transfer Techniques, Correct Positioning, Safety Issues Teaching Recipient: Patient Teaching Methods: Demonstration, Discussion Response to Teaching: Reinforcement Needed Time/GCodes Time In: 0800 Time Out: 0900 Total Billed Treatment Time: 60 Total Billed Treatment 1 visit GT 20' EX 40' ANTHONY CORNEJO PT Oct 29, 2020 08:59
[2020-10-29] MEDS: polyethylene glycoL POWDER 17 GM (MIRALAX) PACK PO SCH ×2 (09:00→21:45)
[2020-10-29] MEDS: PANTOPRAZOLE 40 MG (PROTONIX) TAB PO SCH (09:00)
--- NOTE | 2020-10-29 11:09 | Individualized Plan of Care ---
Individualized Plan of Care Rehab Nursing IPOC Order Admission Date Oct 28, 2020 at 11:35 Current Orders Orders Admission Order(Inpt,Obs,Sdc) (10/28/20 09:57) Vital Signs: Per Unit Policy ( 16,00 (10/28/20 09:57) Rishabh Estefanianadya (10/28/20 09:57) Sequential Compression Device .admit (10/28/20 09:57) Aerial Lineman-Inpt Rehab Con (10/28/20 09:57) Rehab Nursing Orders-Ipoc (10/28/20 09:57) Physical Therapy Rehab Orders (10/28/20 09:57) Occupational Therapy Rehab Ord (10/28/20 09:57) Speech Therapy Rehab Orders (10/28/20 09:57) Cbc With Automated Diff (10/29/20 06:00) Comprehensive Metabolic Panel (10/29/20 06:00) Precautions (Aru) (10/28/20 09:57) Rehab-Intensity Of Therapy (10/28/20 09:57) Initiate Admission Nursing Pro .admission (10/28/20 09:57) Alprazolam Tablet (Xanax Tablet) (10/28/20 10:00) Calcium Carbonate Chew Tablet (Antacid C (10/28/20 10:00) Diphenhydramine Tablet (Benadryl Tablet) (10/28/20 10:00) Docusate Sodium Capsule (Colace Capsule) (10/28/20 21:00) Docusate Sodium Capsule (Colace Capsule) (10/28/20 10:00) Bisacodyl Suppository (Dulcolax Supposit (10/28/20 10:00) Lactulose Oral Solution (Enulose Oral So (10/28/20 10:00) Na Phos/Na Biphos Enema (Fleet Enema Jean (10/28/20 10:00) Guaifenesin/Codeine Syrup (Robitussin Ac (10/28/20 10:00) Loperamide Tablet (Imodium Tablet) (10/28/20 10:00) Melatonin Tablet (Melatonin Tablet) (10/28/20 10:00) Polyethylene Glycol Powder Pkt (Miralax (10/28/20 21:00) Ondansetron Oral Dissolve Tab (Zofran (10/28/20 10:00) Senna S Tablet (Senokot S Tablet) (10/28/20 21:00) Initiate Admission Nursing Pro .admission (10/28/20 09:57) Admission Arrival Bed Request (10/28/20 11:34) Patient Visit (10/28/20 ) Pt Eval Moderate Complexity (10/28/20 ) Exercise Therap, Ea 15 Min (10/28/20 ) Functional Activities, Ea 15 (10/28/20 ) Dys3 Advanced/Ground Meat (10/28/20 Dinner) Accucheck Achs ACHS (10/28/20 18:23) Code/Resuscitation (10/28/20 18:45) Accucheck Achs ACHS (10/28/20 18:45) Incentive Spirometry (Nursing) Q2H (10/28/20 18:45) Initiate Admission Nursing Pro .admission (10/28/20 18:45) Acetaminophen Tablet/Caplet (Tylenol T (10/28/20 18:45) Albuterol/Ipra Inhalation Soln (Duoneb I (10/28/20 21:00) Allopurinol Tablet (Zyloprim Tablet) (10/29/20 07:00) Haloperidol Injection (Haldol Injectio (10/28/20 18:45) Lorazepam Injection (Ativan Injection) (10/28/20 18:45) Levothyroxine Tablet (Synthroid Tablet) (10/29/20 06:30) Melatonin Tablet (Melatonin Tablet) (10/28/20 21:00) Olanzapine Orally Dissolve Tab (Zyprexa (10/28/20 18:45) Pantoprazole Tablet (Protonix Tablet) (10/29/20 09:00) Insulin Aspart (Novolog) (Novolog (Charg (10/28/20 21:00) Insulin Determir (Per Unit) (Levemir (Pe (10/28/20 21:00) Incentive Spirometry Initial (10/28/20 18:45) Mat Initiate Protocol (10/28/20 18:45) Svn Small Volume Nebulizer (10/28/20 18:45) Incentive Spirometry (Nursing) Q2H (10/28/20 18:45) Enoxaparin Injection (Lovenox Injection) (10/29/20 12:00) Diabetes Education (10/29/20 14:24) Ambulate W/O 02-Home O2 Qual (10/30/20 08:00) Patient Visit (10/29/20 ) Functional Activities, Ea 15 (10/29/20 ) Patient Visit (10/29/20 ) Gait Training, Ea 15 Min (10/29/20 ) Exercise Therap, Ea 15 Min (10/29/20 ) Rehab Nursing Orders: Ongoing Assess. of Cognitive Status, Ongoing Assess. of Function Status, Bladder Management, Bladder Scan, Bladder Training, Bowel Management, Bowel Training, Disease Management & Educaiton, DVT Prophylaxis, Fall Prevention, Fluid/Electrolyte/Nutrition Mgmt, Infection Prevention, Medication Management & Education, Management of Risks & Complications, Nutrition Management, Pain Management, Patient/Family Support, Safety Management Intensity of Therapy to be met Patient to be seen: Min.3h per day/5 of 7d PT IPOC Problem List: Activity Tolerance, Functional Strength, Safety, Balance, Gait, Transfer, ROM Treatment Plan: Continue Plan of Care Education, Functional Activity Chris, Functional Strength, Gait, Safety, Therapeutic Exercise, Transfers Treatment Duration: Nov 18, 2020 Frequency: Modified Program (IRF) Estimated Hrs Per Day: 1 hour per day OT IPOC Problems: Decreased Activ Tolerance, Decreased Safety Aware, Decreased UE Stren gth, Impaired Self-Care Skills, Restricted Funct UE ROM OT Treatment, Training and Edu: Yes Plan of Care: ADL Retraining, Functional Mobility, Group Exercise/Act as Ind, UE Funct Exercise/Act, UE Neuromus Re-Ed/Coord Treatment Duration: Nov 11, 2020 Frequency: At least 5 of 7 days/Wk (IRF) Estimated Hrs Per Day: 1.[address] IPOC Speech Therapy Treatment Plan: Discontinue ST Treatment Duration: Oct 29, 2020 Frequency: Modified Program (IRF) Estimated Hrs Per Day: Other Aerial Lineman/Case Mgmt Aerial Lineman/Case Managemen: Discharge Planning Dietitian/Video Editing Intern Dietitian/Video Editing Intern to monitor nutritional status and make changes and/or recommendations as needed and work with speech pathology on dietary upgrades as the occur. Physician IPOC Medical Issues being managed closely and that require the 24 hour availability of a physician: Recent severe COVID-19 pneumonia with intubation for 15 days will require close monitoring for decompensation Medical Issues: Bowel/Bladder Function, DVT Prophylaxis, Falls Precautions, Fluid/Electrolyte/Nutrition Balance, Infection Protection, Pain Management Brief Synthesis of Preadmission Screen, Post-Admission Evaluation, and Therapy Evaluations: PT and OT will focus on increasing ambulatory stamina along with increasing independence in ADLs in order to return back to independent living with Medical Prognosis: 5 days Anticipated Length of Stay: MIKAELA Jorge DO Oct 29, 2020 11:09
--- NOTE | 2020-10-29 11:09 | PM&R Progress Note ---
Subjective HPI/CC On Admission Date Seen by Provider: Oct 29, 2020 Time Seen by Provider: 11:10 Subjective/Events-last exam 10/29/2020: Patient doing really well Sore on left face managed with wound care Walked 300 feet with 4 rest breaks 3 L of oxygen maintained Bowels are moving Pulmonary consultation following patient and he is improved Review of Systems General: Fatigue Pulmonary: Dyspnea Objective Exam Vital Signs Vital Signs Date Time Temp Pulse Resp B/P (MAP) Pulse Ox O2 Delivery O2 Flow Rate FiO2 10/29/20 21:30 92 Nasal Cannula 2.00 10/29/20 20:15 37.0 89 18 124/78 (93) Capillary Refill : General Appearance: No Apparent Distress, WD/WN, Anxious, Chronically ill HEENT: PERRL/EOMI, Normal ENT Inspection, Pharynx Normal Neck: Full Range of Motion, Normal Inspection, Non Tender, Supple, Carotid Bruit Respiratory: Chest Non Tender, Lungs Clear, No Accessory Muscle Use, No Respiratory Distress, Decreased Breath Sounds Cardiovascular: Regular Rate, Rhythm, No Edema, No Gallop, No JVD, No Murmur, Normal Peripheral Pulses Gastrointestinal: Normal Bowel Sounds, No Organomegaly, No Pulsatile Mass, Non Tender, Soft Back: Normal Inspection, No CVA Tenderness, No Vertebral Tenderness Extremity: Normal Capillary Refill, Normal Inspection, Normal Range of Motion, Non Tender, No Calf Tenderness, No Pedal Edema Neurologic/Psychiatric: Alert, Oriented x3, Normal Mood/Affect, director digital sales II-XII Norm as Tested, Disoriented (subtle), Motor Weakness (generalized 3/5) Skin: Normal Color, Warm/Dry Lymphatic: No Adenopathy Results/Procedures Lab Patient resulted labs reviewed. FIM Transfers Therapy Code Descriptions/Definitions Functional [place] Measure: 0=Not Assessed/NA 4=Minimal Assistance 1=Total Assistance 5=Supervision or Setup 2=Maximal Assistance 6=Modified [place] 3=Moderate Assistance 7=Complete IndependenceSCALE: Activities may be completed with or without assistive devices. 9-Kwyvqmbxaz-upajavb completes the activity by him/herself with no assistance from a helper. 5-Set-up or Clean-up Assistance-helper sets up or cleans up; patient completes activity. [place] assists only prior to or following the activity. 4-Supervision or Touching Assistance-helper provides verbal cues and/or touching/steadying and/or contact guard assistance as patient completes activity. Assistance may be provided throughout the activity or intermittently. 3-Partial/Moderate Assistance-helper does LESS THAN HALF the effort. [place] lifts, holds or supports trunk or limbs, but provides less than half the effort. 2-Substantial/Maximal Assistance-helper does MORE THAN HALF the effort. [place] lifts or holds trunk or limbs and provides more than half the effort. 5-Aimisvgng-jvgcrz does ALL the effort. Patient does none of the effort to complete the activity. Or, the assistance of 2 or more helpers is required for the patient to complete the activity. If activity was not attempted, code reason: 7-Patient Refused. 9-Not Applicable-not attempted and the patient did not perform the activity before the current illness, exacerbation or injury. 10-Not Attempted due to Environmental Limitations-(lack of equipment, weather restraints, etc.). 88-Not Attempted due to Medical Conditions or Safety Concerns. Roll Left to Right (QC): 6 Sit to Lying (QC): 6 Sit to Stand (QC): 4 Chair/Yws-ng-Twvvm Xfer(QC): 4 Car Transfer (QC): 4 Gait Training Does the Patient Walk?: Yes Distance: 300', 150'x2 Walk 10 feet (QC): 4 Walk 50 ft with 2 Turns(QC): 4 Walk 150 ft (QC): 4 Walking 10ft/uneven surface-QC: 4 Gait Assistive Device: FWW Wheelchair Training Does the Pt Use a Wheelchair?: No Wheel 50 ft with 2 turns (QC): 9 Wheel 150 ft (QC): 9 Stair Training #of Steps: 4 1 Step (curb) (QC): 4 4 Steps (QC): 4 12 Steps (QC): 88 Balance Picking up an Object (QC): 4 ADL-Treatment Eating (QC): 5 (Per clinical judgment, pt requires set up for eating then completes by self.) Oral Hygiene (QC): 5 (Using clinical judgment, pt able to complete after set up.) Bathing Location: L Arm, R Arm, L Upper Leg, R Upper Leg, Chest, Abdomen, Buttocks, Perineal Area Shower/Bathe Self (QC): 3 (Sitting on shower bench, using using grabbar and hand held shower pt able to complete all areas except feet. Mod A for sit to stand to sports leadership instructor shower then min A to stabilize while pt cleansed buttocks/courtney area.) Upper Body Dressing (QC): 4 (Set up and manipulation of O2 tubing while donning/doffing shirt.) Lower Body Dressing (QC): 3 (Assist to thread feet and lower legs into pant leg then min A to stabilize while pt hikes pants over hips.) On/Off Footwear (QC): 2 (Max A to don socks, able to doff socks by self.) Toileting Hygiene (QC): 3 (Min A to stabilize in standing while pt completes hygiene and clothing manipulation) Toilet Transfer (QC): 3 (Mod A for sit <--> stand) Assessment/Plan Assessment and Plan Assess & Plan/Chief Complaint Assessment: COVID-19 pneumonia with severe debility Status post 15 days of ventilator support New onset hypothyroidism New onset diabetes hemoglobin A1c 9.0 at [facility] 09/28/2020 Gout with acute gout attack ICU psychosis Anemia Plan: Aggressive therapy ICU psychosis management 10/29/2020: Supportive care Discharge on Tuesday Left facial wound management (1) COVID-19 Status: Acute (2) Diabetes mellitus, new onset (3) Gout attack Status: Acute MIKAELA LAYNE DO Oct 29, 2020 11:09
[2020-10-29] MEDS: ENOXAPARIN 40 MG/0.4 ML (LOVENOX) SYR SC SCH (12:01)
--- NOTE | 2020-10-29 12:04 | Occupational Ther Daily Note ---
OT Current Status-Daily Note Subjective Pt. alert in recliner, pleasant, agreed to therapy. Pt. family in room. Mental Status/Objective Patient Orientation: Person, Place, Time, Situation Attachments: IV, Oxygen ADL-Treatment Pt. edu on LBD equipment, pt. verbalizes understanding/interest in using. Pt. agrees to shower. Pt. ambu. using FWW SBA manipulating O2 tubing/canister. Pt. sat on commode in bathroom, used figure 4 technique to doff B socks. Pt. stood to hike pants/underwear off hips then pt sat to use dressing stick to doff pants over lower legs/feet. Pt. sat to doff UE dressing. Pt SBA to transfer from commode to shower bench. Pt. cleansed UE after set up, LE/feet with LH sponge requested back scrub. Pt stood with SBA to cleanse courtney/buttocks. Pt. standing requested back wash, informed for safety reasons sitting is better. Pt. dried areas except back/feet. Pt. transferred back to commode to dress, clothes set up. Pt. donned shirt over arms to shoulders, assist to get over head. Pt. used porcelain waxer to thread underwear/pants over feet, pulled pants up to knees before standing SBA to hike pants over hips. Pt. sat on commode, reminded of pursed lip breathing technique, attempted to don socks. Pt. used one handed technique to don R sock, sock aid to complete L sock donning. Pt. ambu to recliner using FWW SBA. Therapy Code Descriptions/Definitions Functional [place] Measure: 0=Not Assessed/NA 4=Minimal Assistance 1=Total Assistance 5=Supervision or Setup 2=Maximal Assistance 6=Modified [place] 3=Moderate Assistance 7=Complete IndependenceSCALE: Activities may be completed with or without assistive devices. 5-Kncapdjahl-sxcqjzo completes the activity by him/herself with no assistance from a helper. 5-Set-up or Clean-up Assistance-helper sets up or cleans up; patient completes activity. [place] assists only prior to or following the activity. 4-Supervision or Touching Assistance-helper provides verbal cues and/or touchi ng/steadying and/or contact guard assistance as patient completes activity. Assistance may be provided throughout the activity or intermittently. 3-Partial/Moderate Assistance-helper does LESS THAN HALF the effort. [place] lifts, holds or supports trunk or limbs, but provides less than half the effort. 2-Substantial/Maximal Assistance-helper does MORE THAN HALF the effort. [place] lifts or holds trunk or limbs and provides more than half the effort. 1-Pcosfztaf-evwrad does ALL the effort. Patient does none of the effort to complete the activity. Or, the assistance of 2 or more helpers is required for the patient to complete the activity. If activity was not attempted, code reason: 7-Patient Refused. 9-Not Applicable-not attempted and the patient did not perform the activity before the current illness, exacerbation or injury. 10-Not Attempted due to Environmental Limitations-(lack of equipment, weather restraints, etc.). 88-Not Attempted due to Medical Conditions or Safety Concerns. Eating (QC): 7 Oral Hygiene (QC): 7 Bathing Location: L Arm, R Arm, L Upper Leg, R Upper Leg, L Lower Leg (including foot), R Lower Leg (including foot), Chest, Abdomen, Buttocks, Perineal Area Shower/Bathe Self (QC): 3 (assist only to dry feet, completed rest with SBA.) Upper Body Dressing (QC): 5 (set up) Lower Body Dressing (QC): 4 (set up, use of equipment) On/Off Footwear: 3 (Set up, use of equipment, assitance with equipment) Toileting Hygiene (QC): 7 Toilet Transfer (QC): 7 Other Treatment Pt. performed shoulder horizontal abd/add, bicep curl, tricep curl with no resistance. Pt able to actively lift B UE to 90* shldr flexion then AAROM from 90* to 180* shldr flexion. Pt. left in room call light/phone in reach. All needs met in room. Family in room. Education OT Patient Education: Use of adapted equipment Teaching Recipient: Patient, Family Teaching Methods: Demonstration, Discussion Response to Teaching: Verbalize Understanding, Return Demonstration, Rein forcement Needed OT Short Term Goals Short Term Goals Eatin Oral hygiene: 4 Toileting hygiene: 4 Shower/bathe self: 4 Upper body dressin Lower body dressin Putting on/taking off footwear: 4 OT Jail Goals Side Boss Goals Eating (QC): 6 Oral Hygiene (QC): 6 Toileting Hygiene (QC): 6 Shower/Bathe Self (QC): 6 Upper Body Dressing (QC): 6 Lower Body Dressing (QC): 6 On/Off Footwear (QC): 6 1=Demonstrate adherence to instructed precautions during ADL tasks. 2=Patient will verbalize/demonstrate understanding of assistive dev ices/modifications for ADL. 3=Patient will improve strength/tolerance for activity to enable patient to perform ADL's. OT Education/Plan Problem List/Assessment Assessment: Decreased Activ Tolerance, Decreased Safety Aware, Decreased UE Strength, Impaired Self-Care Skills, Restricted Funct UE ROM Discharge Recommendations Plan/Recommendations: Continue POC Treatment Plan/Plan of Care Patient would benefit from OT for education, treatment and training to promote independence in ADL's, mobility, safety and/or upper extremity function for ADL's. Plan of Care: ADL Retraining, Functional Mobility, Group Exercise/Act as Ind, UE Funct Exercise/Act, UE Neuromus Re-Ed/Coord Treatment Duration: Nov 11, 2020 Frequency: At least 5 of 7 days/Wk (IRF) Estimated Hrs Per Day: 1.5 hours per day Agreement: Yes Rehab Potential: Fair Time/GCodes Start Time: 10:45 Stop Time: 12:00 Total Time Billed (hr/min): 75 Billed Treatment Time 1 visit-ADL 4 (60 min) EX 1 (15 min) LAURA JACKSON Oct 29, 2020 12:04
--- NOTE | 2020-10-29 14:17 | Physical Therapy Daily Note ---
PT Daily Note-Current Subjective Pt in chair upon arrival and agrees to tx. Pt states pain in B feet at 7/10 saying they are sore. Pt says recliner hurts his bottom and request to stay in chair instead post tx. Pain Numeric Pain Scale: 7 Location Body Site: Foot Mental Status Patient Orientation: Person, Place, Situation Attachments: Oxygen (3) Transfers SCALE: Activities may be completed with or without assistive devices. 0-Pdtjwlfttj-qoiiopk completes the activity by him/herself with no assistance from a helper. 5-Set-up or Clean-up Assistance-helper sets up or cleans up; patient completes activity. [place] assists only prior to or following the activity. 4-Supervision or Touching Assistance-helper provides verbal cues and/or touching/steadying and/or contact guard assistance as patient completes activity. Assistance may be provided throughout the activity or intermittently. 3-Partial/Moderate Assistance-helper does LESS THAN HALF the effort. [place] lifts, holds or supports trunk or limbs, but provides less than half the effort. 2-Substantial/Maximal Assistance-helper does MORE THAN HALF the effort. [place] lifts or holds trunk or limbs and provides more than half the effort. 5-Dzqetdydx-rjseso does ALL the effort. Patient does none of the effort to complete the activity. Or, the assistance of 2 or more helpers is required for the patient to complete the activity. If activity was not attempted, code reason: 7-Patient Refused. 9-Not Applicable-not attempted and the patient did not perform the activity before the current illness, exacerbation or injury. 10-Not Attempted due to Environmental Limitations-(lack of equipment, weather restraints, etc.). 88-Not Attempted due to Medical Conditions or Safety Concerns. Sit to Stand (QC): 4 Gait Training Does the Patient Walk?: Yes Distance: 150' Walk 10 feet (QC): 4 Walk 50 ft with 2 Turns(QC): 4 Walk 150 ft (QC): 4 Gait Persons Needed: 1 Gait Assistive Device: FWW Pt has slow, shuffling gait. Pt amb w/ FWW and PAROLE OR PROBATION OFFICER following w/ O2 Treatments Pt request to brush teeth upon arrival. Pt sit to stand CGA and amb to sink in bathroom. Pt brush teeth w/ CGA, pt able to hold static standing balance w/o any LOB. Pt then amb 150' on IRU. While amb, pt request pain medication from RN. Pt returns to chair in room, left with all needs met and call light in hand. Assessment Current Status: Good Progress Pt increasing endurance, balance, and strength PT Short Term Goals Short Term Goals Time Frame: Nov 04, 2020 Roll Left & Right: 6 Sit to lyin Lying to sitting on side of be: 6 Sit to stand: 5 Chair/igw-ej-dexki transfer: 5 Walk 10 feet: 5 Walk 50 feet with two turns: 5 Walk 150 feet: 5 PT Assisted Goals Seismic Prospecting Supervisor Goals PT Assisted Goals Time Frame: Nov 18, 2020 Roll Left & Right (QC): 6 Sit to Lying (QC): 6 Lying-Sitting on Side/Bed(QC): 6 Sit to Stand (QC): 6 Chair/Tud-oj-Tmzak Xfer(QC): 6 Toilet Transfer (QC): 6 Car Transfer (QC): 6 Does the Patient Walk: Yes Walk 10 feet (QC): 6 Walk 50ft with 2 Turns (QC): 6 Walk 150 ft (QC): 6 Walking 10ft on Uneven Surface: 6 1 Step (curb) (QC): 5 4 Steps (QC): 5 12 Steps (QC): 5 Picking up an Object (QC): 6 Wheel 50 feet with 2 turns (QC: 9 Wheel 150 feet: 9 PT Plan Treatment/Plan Treatment Plan: Continue Plan of Care Treatment Plan: Education, Functional Activity Chris, Functional Strength, Gait, Safety, Therapeutic Exercise, Transfers Treatment Duration: Nov 18, 2020 Frequency: Modified Program (IRF) Estimated Hrs Per Day: 1 hour per day Patient and/or Family Agrees t: Yes Time/GCodes Time In: 1400 Time Out: 1415 Total Billed Treatment Time: 15 Total Billed Treatment 1AYANA SYDNEY PAROLE OR PROBATION OFFICER Oct 29, 2020 14:17
[2020-10-29 20:15] VITALS: BP 124/78
[2020-10-29] MEDS: MELATONIN 3 MG TABLET PO SCH (21:59)
[2020-10-29] MEDS: ACETAMINOPHEN 325 MG TABLET PO PRN (23:42)
[2020-10-30] MEDS: inSUlin ASPART (NovoLOG) 1 UNIT/0.01 ML (CHARGE PER UNIT) SC SCH ×4 (05:47→21:49)
[2020-10-30] MEDS: ALLOPURINOL 100 MG (ZYLOPRIM) TAB PO SCH (06:20)
[2020-10-30] MEDS: LEVOTHYROXINE 75 MCG (LEVOTHROID) TABLET PO SCH (06:20)
[2020-10-30] MEDS: RT-ALBUTEROL/IPRATROPIUM 3 ML (DUONEB) VIAL INH SCH ×2 (06:50→21:13)
--- NOTE | 2020-10-30 07:15 | Pulmonary Progress Note ---
Subjective Date Seen by a Provider: Oct 30, 2020 Time Seen by a Provider: 07:14 Subjective/Events-last exam stable vitals Sepsis Event Evaluation Height, Weight, BMI Height: 5'7.00" Weight: 250lbs. 0oz. [id number]; 34.21 BMI Method:Stated Exam Exam Patient acknowledged, consented, and participated in this virtual visit which was conducted using real time audio/video Vital Signs Date Time Temp Pulse Resp B/P (MAP) Pulse Ox O2 Delivery O2 Flow Rate FiO2 10/30/20 06:51 94 Nasal Cannula 2.00 10/29/20 21:30 92 Nasal Cannula 2.00 10/29/20 20:15 96 Nasal Cannula 2.00 10/29/20 20:15 37.0 89 18 124/78 (93) 96 Nasal Cannula 3.00 10/29/20 09:46 Nasal Cannula 4.00 10/29/20 07:51 98 Nasal Cannula 3.00 10/29/20 07:38 36.2 78 20 117/72 (87) 96 Nasal Cannula 5.00 Height & Weight Height: 5'7.00" Weight: 250lbs. 0oz. [id number]; 34.21 BMI Method:Stated General Appearance: No Apparent Distress, WD/WN, Anxious, Chronically ill HEENT: PERRL/EOMI, Normal ENT Inspection, Pharynx Normal Neck: Full Range of Motion, Normal Inspection, Non Tender, Supple, Carotid Bruit Respiratory: Chest Non Tender, Lungs Clear, No Accessory Muscle Use, No Respiratory Distress, Decreased Breath Sounds Cardiovascular: Regular Rate, Rhythm, No Edema, No Gallop, No JVD, No Murmur, Normal Peripheral Pulses Extremity: Normal Capillary Refill, Normal Inspection, Normal Range of Motion, Non Tender, No Calf Tenderness, No Pedal Edema Neurologic/Psychiatric: Alert, Oriented x3, Normal Mood/Affect, transmission rebuilder II-XII Norm as Tested, Disoriented (subtle), Motor Weakness (generalized 3/5) Skin: Normal Color, Warm/Dry Lymphatic: No Adenopathy Results Lab Laboratory Tests 10/29/20 05:15 Assessment/Plan Assessment/Plan COVID pna/ resolved hypoxemic resp failure -o2/ IS/ early mobilzation/ dvt prophylaxis SANTIAGO MIRELES MD Oct 30, 2020 07:15
[2020-10-30] MEDS: PANTOPRAZOLE 40 MG (PROTONIX) TAB PO SCH (07:49)
[2020-10-30 07:55] VITALS: BP 121/59
[2020-10-30] MEDS: ACETAMINOPHEN 325 MG TABLET PO PRN (08:00)
--- NOTE | 2020-10-30 08:55 | Physical Therapy Daily Note ---
PT Daily Note-Current Subjective Patient in recliner pre tx, agrees to PT, has no complaints of pain. Appearance Patient in recliner post tx with nurse call, phone, tray, all needs met. Mental Status Patient Orientation: Person, Place, Situation, Normal For Age Attachments: Oxygen Transfers SCALE: Activities may be completed with or without assistive devices. 3-Atwizqkogy-ddpjimx completes the activity by him/herself with no assistance from a helper. 5-Set-up or Clean-up Assistance-helper sets up or cleans up; patient completes activity. [place] assists only prior to or following the activity. 4-Supervision or Touching Assistance-helper provides verbal cues and/or touching/steadying and/or contact guard assistance as patient completes a ctivity. Assistance may be provided throughout the activity or intermittently. 3-Partial/Moderate Assistance-helper does LESS THAN HALF the effort. [place] lifts, holds or supports trunk or limbs, but provides less than half the effort. 2-Substantial/Maximal Assistance-helper does MORE THAN HALF the effort. [place] lifts or holds trunk or limbs and provides more than half the effort. 0-Uejhnuylt-zwzcin does ALL the effort. Patient does none of the effort to complete the activity. Or, the assistance of 2 or more helpers is required for the patient to complete the activity. If activity was not attempted, code reason: 7-Patient Refused. 9-Not Applicable-not attempted and the patient did not perform the activity before the current illness, exacerbation or injury. 10-Not Attempted due to Environmental Limitations-(lack of equipment, weather restraints, etc.). 88-Not Attempted due to Medical Conditions or Safety Concerns. Roll Left & Right (QC): 6 Sit to Lying (QC): 6 Lying to Sitting/Side of Bed(Q: 6 Sit to Stand (QC): 6 Chair/Ktt-kl-Miqoc Xfer(QC): 5 Toilet Transfer (QC): 5 Car Transfer (QC): 5 Patient performs bed mobility and supine <-> sit with independence, sit <-> stand independent, transfers and car transfer with setup. Patient often gets wound up in his O2 line and needs setup for that. Gait Training Distance: 300', 150' Walk 10 feet (QC): 6 Walk 50 ft with 2 Turns(QC): 6 Walk 150 ft (QC): 6 Walking 10ft/uneven surface-QC: 6 Gait Assistive Device: FWW Patient can ambulate 300' with a rolling walker with independence (including 50' with at least 2 turns of 90 degrees and 10' over an uneven surface). Patient ambulates slow but steady, fairly SOB after ambulating 300' Wheelchair Training Does the Pt Use a Wheelchair?: No Wheel 50 ft with 2 turns (QC): 9 Wheel 150 ft (QC): 9 Stair Training Stair Training: Handrails/: 2 handrails #of Steps: 8 1 Step (curb) (QC): 4 4 Steps (QC): 4 12 Steps (QC): 88 Stairs: Pattern: Step to Patient can go up and down 8 steps using 2 handrails with SBA Balance Picking up an Object (QC): 4 Exercises Standing: Hamstring curls, Heel/toe raises, 3 way Ex=Flex, Abd, Ext (not extension), Marching, Mini squats Standing Reps: 15 LAQ alternating for 5 min, calf stretching 30 seconds x2 Treatments bed mobility and transfers, ambulation, stair training, functional strengthening, stretching Assessment Current Status: Fair Progress patient needs to pay better attention to his O2 line so he doesn't trip over it during transfers and turning PT Short Term Goals Short Term Goals Time Frame: Nov 04, 2020 Roll Left & Right: 6 Sit to lyin Lying to sitting on side of be: 6 Sit to stand: 5 Chair/atm-hj-pztpm transfer: 5 Walk 10 feet: 5 Walk 50 feet with two turns: 5 Walk 150 feet: 5 PT Chcf Goals Chcf Goals PT Chcf Goals Time Frame: Nov 18, 2020 Roll Left & Right (QC): 6 Sit to Lying (QC): 6 Lying-Sitting on Side/Bed(QC): 6 Sit to Stand (QC): 6 Chair/Iza-tt-Gwymv Xfer(QC): 6 Toilet Transfer (QC): 6 Car Transfer (QC): 6 Does the Patient Walk: Yes Walk 10 feet (QC): 6 Walk 50ft with 2 Turns (QC): 6 Walk 150 ft (QC): 6 Walking 10ft on Uneven Surface: 6 1 Step (curb) (QC): 5 4 Steps (QC): 5 12 Steps (QC): 5 Picking up an Object (QC): 6 Wheel 50 feet with 2 turns (QC: 9 Wheel 150 feet: 9 PT Plan Problem List Problem List: Activity Tolerance, Functional Strength, Safety, Balance, Gait, Transfer, ROM Treatment/Plan Treatment Plan: Continue Plan of Care Treatment Plan: Education, Functional Activity Chris, Functional Strength, Gait, Safety, Therapeutic Exercise, Transfers Treatment Duration: Nov 18, 2020 Frequency: Modified Program (IRF) Estimated Hrs Per Day: 1 hour per day Patient and/or Family Agrees t: Yes Safety Risks/Education Patient Education: Gait Training, Transfer Techniques, Steps, Correct Positioning, Safety Issues Teaching Recipient: Patient Teaching Methods: Demonstration, Discussion Response to Teaching: Reinforcement Needed Time/GCodes Time In: 0800 Time Out: 0900 Total Billed Treatment Time: 60 Total Billed Treatment 1 visit GT 30' EX 30' ANTHONY CORNEJO PT Oct 30, 2020 08:55
[2020-10-30] MEDS: DOCUSATE SODIUM 100 MG (COLACE) CAP PO SCH ×2 (09:00→21:45)
[2020-10-30] MEDS: SENNA W/DOCUSATE (SENOKOT S) TABLET PO SCH ×2 (09:01→21:45)
[2020-10-30] MEDS: polyethylene glycoL POWDER 17 GM (MIRALAX) PACK PO SCH ×2 (09:01→21:45)
[2020-10-30] MEDS ORDERED: INSU100V5 SQ (11:51)
[2020-10-30] MEDS ORDERED: LEVO75TA PO (11:51)
[2020-10-30] MEDS ORDERED: SYRI-1325 MC (11:51)
[2020-10-30] MEDS ORDERED: INSU100V16 SQ (11:51)
[2020-10-30] MEDS ORDERED: ALLO100T PO (11:51)
--- NOTE | 2020-10-30 11:52 | PM&R Progress Note ---
Subjective HPI/CC On Admission Date Seen by Provider: Oct 30, 2020 Time Seen by Provider: 12:00 Subjective/Events-last exam 10/30/2020: Discharge plan for tomorrow Doing very well Monitor closely Oxygen will be required at discharge 10/29/2020: Patient doing really well Sore on left face managed with wound care Walked 300 feet with 4 rest breaks 3 L of oxygen maintained Bowels are moving Pulmonary consultation following patient and he is improved Review of Systems General: Fatigue, Malaise Pulmonary: Dyspnea Objective Exam Vital Signs Vital Signs Date Time Temp Pulse Resp B/P (MAP) Pulse Ox O2 Delivery O2 Flow Rate FiO2 10/31/20 09:00 Nasal Cannula 3.00 10/31/20 07:44 36.4 100 20 120/76 (91) 95 Capillary Refill : General Appearance: No Apparent Distress, WD/WN, Anxious, Chronically ill HEENT: PERRL/EOMI, Normal ENT Inspection, Pharynx Normal Neck: Full Range of Motion, Normal Inspection, Non Tender, Supple, Carotid Bruit Respiratory: Chest Non Tender, Lungs Clear, No Accessory Muscle Use, No Respiratory Distress, Decreased Breath Sounds Cardiovascular: Regular Rate, Rhythm, No Edema, No Gallop, No JVD, No Murmur, Normal Peripheral Pulses Gastrointestinal: Normal Bowel Sounds, No Organomegaly, No Pulsatile Mass, Non Tender, Soft Back: Normal Inspection, No CVA Tenderness, No Vertebral Tenderness Extremity: Normal Capillary Refill, Normal Inspection, Normal Range of Motion, Non Tender, No Calf Tenderness, No Pedal Edema Neurologic/Psychiatric: Alert, Oriented x3, Normal 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 FIM Transfers Therapy Code Descriptions/Definitions Functional [place] Measure: 0=Not Assessed/NA 4=Minimal Assistance 1=Total Assistance 5=Supervision or Setup 2=Maximal Assistance 6=Modified [place] 3=Moderate Assistance 7=Complete IndependenceSCALE: Activities may be completed with or without assistive devices. 0-Qxxqdmhvbx-nckambp completes the activity by him/herself with no assistance from a helper. 5-Set-up or Clean-up Assistance-helper sets up or cleans up; patient completes a ctivity. [place] assists only prior to or following the activity. 4-Supervision or Touching Assistance-helper provides verbal cues and/or touching/steadying and/or contact guard assistance as patient completes activity. Assistance may be provided throughout the activity or intermittently. 3-Partial/Moderate Assistance-helper does LESS THAN HALF the effort. [place] lifts, holds or supports trunk or limbs, but provides less than half the effort. 2-Substantial/Maximal Assistance-helper does MORE THAN HALF the effort. [place] lifts or holds trunk or limbs and provides more than half the effort. 5-Bmibfkpsj-pbxptf does ALL the effort. Patient does none of the effort to complete the activity. Or, the assistance of 2 or more helpers is required for the patient to complete the activity. If activity was not attempted, code reason: 7-Patient Refused. 9-Not Applicable-not attempted and the patient did not perform the activity before the current illness, exacerbation or injury. 10-Not Attempted due to Environmental Limitations-(lack of equipment, weather restraints, etc.). 88-Not Attempted due to Medical Conditions or Safety Concerns. Roll Left to Right (QC): 6 Sit to Lying (QC): 6 Sit to Stand (QC): 6 Chair/Czn-xx-Utjyu Xfer(QC): 5 Car Transfer (QC): 5 Gait Training Does the Patient Walk?: Yes Distance: 300', 150' Walk 10 feet (QC): 6 Walk 50 ft with 2 Turns(QC): 6 Walk 150 ft (QC): 6 Walking 10ft/uneven surface-QC: 6 Gait Persons Needed: 1 Gait Assistive Device: FWW Wheelchair Training Does the Pt Use a Wheelchair?: No Wheel 50 ft with 2 turns (QC): 9 Wheel 150 ft (QC): 9 Stair Training Stair Training: Handrails/: 2 handrails #of Steps: 8 1 Step (curb) (QC): 4 4 Steps (QC): 4 12 Steps (QC): 88 Stairs: Pattern: Step to Balance Picking up an Object (QC): 4 ADL-Treatment Eating (QC): 7 Oral Hygiene (QC): 7 Bathing Location: L Arm, R Arm, L Upper Leg, R Upper Leg, L Lower Leg (including foot), R Lower Leg (including foot), Chest, Abdomen, Buttocks, Perineal Area Shower/Bathe Self (QC): 3 (assist only to dry feet, completed rest with SBA.) Upper Body Dressing (QC): 5 (set up) Lower Body Dressing (QC): 4 (set up, use of equipment) On/Off Footwear (QC): 3 (Set up, use of equipment, assitance with equipment) Toileting Hygiene (QC): 7 Toilet Transfer (QC): 7 Assessment/Plan Assessment and Plan Assess & Plan/Chief Complaint Assessment: COVID-19 pneumonia with severe debility Status post 15 days of ventilator support New onset hypothyroidism New onset diabetes hemoglobin A1c 9.0 at [facility] 09/28/2020 Gout with acute gout attack ICU psychosis Anemia Plan: Aggressive therapy ICU psychosis management 10/29/2020: Supportive care Discharge on Tuesday Left facial wound management 10/30/2020: Discharge plan for tomorrow Oxygen at discharge (1) COVID-19 Status: Acute (2) Diabetes mellitus, new onset (3) Gout attack Status: Acute MIKAELA LAYNE DO Oct 30, 2020 11:52
--- NOTE | 2020-10-30 12:59 | Occupational Ther Daily Note ---
OT Current Status-Daily Note Subjective Pt. alert in bed. Pt. agrees to therapy. Mental Status/Objective Patient Orientation: Person, Place, Time, Situation Attachments: Oxygen ADL-Treatment Pt. agrees to shower. Pt. ambu. using FWW independently safety concerns with O2 tubing awareness to toilet. Pt. performed toileting hygiene independently using grabbars. Pt. doffed shorts/underpants while toileting, ambul. to shower bench to doff socks. Pt doffed B UE independently. Pt. cleansed UE/LE by self seated on shower bench using figure 4 technique to cleanse lower legs/feet. Pt. used grabbars in standing to stabilize while cleansing buttocks/courtney. Pt. stable on feet using grabbars to stand and dry buttocks in shower. Pt. ambul using grabbars to transfer to commode for dressing. Pt. independent with all dressing after set up. Pt. ambul. using FWW supervision only for O2 tubing awareness from commode to recliner. Pt. expressed frustration with tubing. . Therapy Code Descriptions/Definitions Functional [place] Measure: 0=Not Assessed/NA 4=Minimal Assistance 1=Total Assistance 5=Supervision or Setup 2=Maximal Assistance 6=Modified [place] 3=Moderate Assistance 7=Complete IndependenceSCALE: Activities may be completed with or without assistive devices. 1-Wwyumjooop-votzjxm completes the activity by him/herself with no assistance from a helper. 5-Set-up or Clean-up Assistance-helper sets up or cleans up; patient completes activity. [place] assists only prior to or following the activity. 4-Supervision or Touching Assistance-helper provides verbal cues and/or touching/steadying and/or contact guard assistance as patient completes activity. Assistance may be provided throughout the activity or intermittently. 3-Partial/Moderate Assistance-helper does LESS THAN HALF the effort. [place] lifts, holds or supports trunk or limbs, but provides less than half the effort. 2-Substantial/Maximal Assistance-helper does MORE THAN HALF the effort. [place] lifts or holds trunk or limbs and provides more than half the effort. 5-Jyuxpbihd-gxcpdv does ALL the effort. Patient does none of the effort to complete the activity. Or, the assistance of 2 or more helpers is required for the patient to complete the activity. If activity was not attempted, code reason: 7-Patient Refused. 9-Not Applicable-not attempted and the patient did not perform the activity before the current illness, exacerbation or injury. 10-Not Attempted due to Environmental Limitations-(lack of equipment, weather restraints, etc.). 88-Not Attempted due to Medical Conditions or Safety Concerns. Eating (QC): 6 (per clinical judgment) Oral Hygiene (QC): 5 (per clinical judgment/ inform) Bathing Location: L Arm, R Arm, L Upper Leg, R Upper Leg, L Lower Leg (including foot), R Lower Leg (including foot), Chest, Abdomen, Buttocks, Perineal Area Shower/Bathe Self (QC): 6 Upper Body Dressing (QC): 5 (set up) Lower Body Dressing (QC): 5 (set up) On/Off Footwear: 5 (Set up. Also gout in L foot, causing swelling/pain) Toileting Hygiene (QC): 6 Toilet Transfer (QC): 6 Per statements, she will be there to help him with ADLs. Other Treatment Pt. demonstrated increased ROM in shoulder from last session. Last session could only move shoulder comfortably to 90*, this session can move shoulders comfortably to 170* using both hands clasped over head. Pt's requested and shown AAROM techniques so she can do at home to help. Pt. participated in UE HEP ex's no resistance 15 reps 1 set. Pt. in recliner call light/phone in reach. All needs met in room. Education OT Patient Education: Home exercise program Teaching Recipient: Family Teaching Methods: Demonstration, Discussion Response to Teaching: Verbalize Understanding, Return Demonstration OT Short Term Goals Short Term Goals Eatin Oral hygiene: 4 Toileting hygiene: 4 Shower/bathe self: 4 Upper body dressin Lower body dressin Putting on/taking off footwear: 4 OT Senior Care Goals Senior Care Goals Eating (QC): 6 (met) Oral Hygiene (QC): 6 (not met) Toileting Hygiene (QC): 6 (met) Shower/Bathe Self (QC): 6 (met) Upper Body Dressing (QC): 6 (not met) Lower Body Dressing (QC): 6 (not met) On/Off Footwear (QC): 6 (not met) 1=Demonstrate adherence to instructed precautions during ADL tasks. 2=Patient will verbalize/demonstrate understanding of assistive devices/modifications for ADL. 3=Patient will improve strength/tolerance for activity to enable patient to perform ADL's. OT Education/Plan Problem List/Assessment Assessment: Decreased Activ Tolerance, Decreased Safety Aware, Decreased UE Strength, Impaired Self-Care Skills Discharge Recommendations Plan/Recommendations: Continue POC Treatment Plan/Plan of Care Patient would benefit from OT for education, treatment and training to promote independence in ADL's, mobility, safety and/or upper extremity function for ADL's. Plan of Care: ADL Retraining, Functional Mobility, Group Exercise/Act as Ind, UE Funct Exercise/Act, UE Neuromus Re-Ed/Coord Treatment Duration: Nov 11, 2020 Frequency: At least 5 of 7 days/Wk (IRF) Estimated Hrs Per Day: 1.5 hours per day Agreement: Yes Rehab Potential: Fair Time/GCodes Start Time: 10:45 Stop Time: 12:00 Total Time Billed (hr/min): 75 Billed Treatment Time 1 visit- ADL 4(65 min), Ex1 (10 min) LAURA JACKSON Oct 30, 2020 12:59
[2020-10-30] MEDS: ENOXAPARIN 40 MG/0.4 ML (LOVENOX) SYR SC SCH (13:33)
--- NOTE | 2020-10-30 13:55 | Physical Therapy Daily Note ---
PT Daily Note-Current Subjective Patient in bed pre tx, agrees to PT, has no complaints of pain Appearance Patient in bed post tx with nurse call, phone, tray, all needs met. Mental Status Patient Orientation: Person, Place, Situation Attachments: Oxygen Transfers SCALE: Activities may be completed with or without assistive devices. 4-Giwashgfne-cmanfno completes the activity by him/herself with no assistance from a helper. 5-Set-up or Clean-up Assistance-helper sets up or cleans up; patient completes activity. [place] assists only prior to or following the activity. 4-Supervision or Touching Assistance-helper provides verbal cues and/or touching/steadying and/or contact guard assistance as patient completes activity. Assistance may be provided throughout the activity or intermittently. 3-Partial/Moderate Assistance-helper does LESS THAN HALF the effort. [place] lifts, holds or supports trunk or limbs, but provides less than half the effort. 2-Substantial/Maximal Assistance-helper does MORE THAN HALF the effort. [place] lifts or holds trunk or limbs and provides more than half the effort. 7-Fjeefxlzm-ibjidf does ALL the effort. Patient does none of the effort to complete the activity. Or, the assistance of 2 or more helpers is required for the patient to complete the activity. If activity was not attempted, code reason: 7-Patient Refused. 9-Not Applicable-not attempted and the patient did not perform the activity before the current illness, exacerbation or injury. 10-Not Attempted due to Environmental Limitations-(lack of equipment, weather restraints, etc.). 88-Not Attempted due to Medical Conditions or Safety Concerns. Roll Left & Right (QC): 6 Sit to Lying (QC): 6 Lying to Sitting/Side of Bed(Q: 6 Sit to Stand (QC): 6 Chair/Bxe-ic-Dggnz Xfer(QC): 6 Gait Training Distance: 400'x2 Walk 10 feet (QC): 6 Walk 50 ft with 2 Turns(QC): 6 Walk 150 ft (QC): 6 Gait Assistive Device: FWW Treatments ambulation Assessment Current Status: Fair Progress one rest break PT Short Term Goals Short Term Goals Time Frame: Nov 04, 2020 Roll Left & Right: 6 Sit to lyin Lying to sitting on side of be: 6 Sit to stand: 5 Chair/jix-mn-yhjgb transfer: 5 Walk 10 feet: 5 Walk 50 feet with two turns: 5 Walk 150 feet: 5 PT Shellfish Processing Machine Tender Goals Longterm Goals PT Shellfish Processing Machine Tender Goals Time Frame: Nov 18, 2020 Roll Left & Right (QC): 6 Sit to Lying (QC): 6 Lying-Sitting on Side/Bed(QC): 6 Sit to Stand (QC): 6 Chair/Png-iv-Imyyc Xfer(QC): 6 Toilet Transfer (QC): 6 Car Transfer (QC): 6 Does the Patient Walk: Yes Walk 10 feet (QC): 6 Walk 50ft with 2 Turns (QC): 6 Walk 150 ft (QC): 6 Walking 10ft on Uneven Surface: 6 1 Step (curb) (QC): 5 4 Steps (QC): 5 12 Steps (QC): 5 Picking up an Object (QC): 6 Wheel 50 feet with 2 turns (QC: 9 Wheel 150 feet: 9 PT Plan Problem List Problem List: Activity Tolerance, Functional Strength, Safety, Balance, Gait, Transfer, ROM Treatment/Plan Treatment Plan: Continue Plan of Care Treatment Plan: Education, Functional Activity Chris, Functional Strength, Gait, Safety, Therapeutic Exercise, Transfers Treatment Duration: Nov 18, 2020 Frequency: Modified Program (IRF) Estimated Hrs Per Day: 1 hour per day Patient and/or Family Agrees t: Yes Safety Risks/Education Patient Education: Gait Training, Transfer Techniques, Correct Positioning, Safety Issues Teaching Recipient: Patient Teaching Methods: Demonstration, Discussion Response to Teaching: Reinforcement Needed Time/GCodes Time In: 1330 Time Out: 1400 Total Billed Treatment Time: 30 Total Billed Treatment 1 visit GT 30' ANTHONY CORNEJO PT Oct 30, 2020 13:55
[2020-10-30 20:10] VITALS: BP 118/72
--- NOTE | 2020-10-30 21:00 | D/C HH Face to Face Order ---
D/C Face to Face Orders Reconcile Patient Problems Problems Reviewed?: Yes Instructions for Patient [facility] Home Health Patient Instructions/FollowUp: [facility] 1 week Physician to follow Patient: [facility] Discharge Diet for Home: ADA Diet Patient Problems: COVID DM Gout Hypothyroidism Patient Data-Allergies,Ht & Wt Patient Allergies: Coded Allergies: No Known Drug Allergies (Unverified , 04/02/12) Height (Feet): 5 Height (Inches): 7.00 Weight (Pounds): 250 Weight (Ounces): 0 Home Health Need/Face to Face Date of Face to Face: Oct 30, 2020 Clinical Findings: Generalized weakness and fatigue, Immune-compromised, Instability, Muscle weakness, Shortness of breath, Wound infection, Non-healing wound I have seen Pt dhmr-in-iqih: Yes Discharged To: Home Diagnosis/Conditions: COVID DM Gout Hypothyroidism Patient is Homebound due to: CognItive deficits, [place] fall risk due to instabilty, Muscle weakness, Shortness of breath/distress Homebound Status Due to the above stated illness, injury or surgical procedure (medical condition or diagnosis) and associated clinical findings, the patient is homebound because of his/her inability to leave home except with aid of a supportive device and/or person AND leaving the home requires a considerable and taxing effort or is medically contraindicated. Pt req the following assistanc: Walker Home Health Nursing Orders Home Health Services Order: Nursing Services, Sonographer-Evaluate & Treat, Physical Therapy-Evaluate & Treat May start 11/03/20 Certify Stmt I certify that this patient is under my care and that I, a nurse practitioner or a physician; a acquisitions assistant working with me, had a face to face encounter that - meets the physician face to face encounter requirements with this patient as dated. MIKAELA LAYNE DO Oct 30, 2020 21:00
[2020-10-30] MEDS: MELATONIN 3 MG TABLET PO SCH (21:59)
[2020-10-31] MEDS: inSUlin ASPART (NovoLOG) 1 UNIT/0.01 ML (CHARGE PER UNIT) SC SCH ×2 (05:50→12:20)
[2020-10-31] MEDS: ALLOPURINOL 100 MG (ZYLOPRIM) TAB PO SCH (06:17)
[2020-10-31] MEDS: LEVOTHYROXINE 75 MCG (LEVOTHROID) TABLET PO SCH (06:17)
[2020-10-31] MEDS: RT-ALBUTEROL/IPRATROPIUM 3 ML (DUONEB) VIAL INH SCH (06:24)
[2020-10-31 07:44] VITALS: BP 120/76
[2020-10-31] MEDS: polyethylene glycoL POWDER 17 GM (MIRALAX) PACK PO SCH (08:23)
[2020-10-31] MEDS: SENNA W/DOCUSATE (SENOKOT S) TABLET PO SCH (08:27)
[2020-10-31] MEDS: DOCUSATE SODIUM 100 MG (COLACE) CAP PO SCH (08:27)
[2020-10-31] MEDS: PANTOPRAZOLE 40 MG (PROTONIX) TAB PO SCH (08:27)
--- NOTE | 2020-10-31 10:56 | Discharge Summary ---
Diagnosis/Chief Complaint Date of Admission Oct 28, 2020 at 11:35 Date of Discharge Discharge Date: Oct 31, 2020 Discharge Diagnosis Assessment: COVID-19 pneumonia with severe debility Status post 15 days of ventilator support New onset hypothyroidism New onset diabetes hemoglobin A1c 9.0 at [facility] 09/28/2020 Gout with acute gout attack ICU psychosis Anemia Plan: Aggressive therapy ICU psychosis management 10/29/2020: Supportive care Discharge on Tuesday Left facial wound management 10/30/2020: Discharge plan for tomorrow Oxygen at discharge (1) COVID-19 Status: Acute (2) Diabetes mellitus, new onset (3) Gout attack Status: Acute Discharge Summary Discharge Physical Examination Allergies: Coded Allergies: No Known Drug Allergies (Unverified , 04/02/12) Vitals & I&Os Vital Signs Date Time Temp Pulse Resp B/P (MAP) Pulse Ox O2 Delivery O2 Flow Rate FiO2 10/31/20 14:01 36.4 100 20 120/76 95 Nasal Cannula 3.00 Hospital Course Was the Problem List Reviewed?: Yes Brief hospital course before discharge. Patient was able to recover after 15 days of intubation from COVID-19 pneumonia. New onset diabetes was managed with insulin. Chronic gout was maintained on regular medication. New onset hypothyroidism required supplementation. He was deemed ready for discharge on 3 L of oxygen continuously. Labs (last 24 hrs) Laboratory Tests 10/28/20 16:36: Glucometer 231H 10/28/20 20:41: Glucometer 174H 10/29/20 05:05: Glucometer 118H 10/29/20 05:15: White Blood Count 7.0, Red Blood Count 4.11L, Hemoglobin 11.2L, Hematocrit 36L, Mean Corpuscular Volume 86, Mean Corpuscular Hemoglobin 27, Mean Corpuscular Hemoglobin Concent 32, Red Cell Distribution Width 14.4, Platelet Count 228, Mean Platelet Volume 10.8, Immature Granulocyte % (Auto) 3, Neutrophils (%) (Auto) 44, Lymphocytes (%) (Auto) 39, Monocytes (%) (Auto) 7, Eosinophils (%) (Auto) 7, Basophils (%) (Auto) 1, Neutrophils # (Auto) 3.0, Lymphocytes # (Auto) 2.7, Monocytes # (Auto) 0.5, Eosinophils # (Auto) 0.5H, Basophils # (Auto) 0.0, Immature Granulocyte # (Auto) 0.2H, Sodium Level 137, Potassium Level 3.5L, Chloride Level 95L, Carbon Dioxide Level 30, Anion Gap 12, Blood Urea Nitrogen 15, Creatinine 0.78, Estimat Glomerular Filtration Rate 108, BUN/Creatinine Ratio 19, Glucose Level 113H, Calcium Level 10.0, Corrected Calcium 10.2H, Total Bilirubin 0.6, Aspartate Amino Transf (AST/SGOT) 38H, Alanine Aminotransferase (ALT/SGPT) 69H, Alkaline Phosphatase 78, Total Protein 7.6, Albumin 3.7 10/29/20 10:48: Glucometer 185H 10/29/20 16:44: Glucometer 115H 10/29/20 21:38: Glucometer 146H 10/30/20 05:46: Glucometer 126H 10/30/20 11:32: Glucometer 145H 10/30/20 16:22: Glucometer 119H 10/30/20 21:47: Glucometer 117H 10/31/20 05:35: Glucometer 119H 10/31/20 11:26: Glucometer 140H Pending Labs Laboratory Tests 10/28/20 16:36: Glucometer 231 10/28/20 20:41: Glucometer 174 10/29/20 05:05: Glucometer 118 10/29/20 05:15: White Blood Count 7.0, Red Blood Count 4.11, Hemoglobin 11.2, Hematocrit 36, Mean Corpuscular Volume 86, Mean Corpuscular Hemoglobin 27, Mean Corpuscular Hemoglobin Concent 32, Red Cell Distribution Width 14.4, Platelet Count 228, Mean Platelet Volume 10.8, Immature Granulocyte % (Auto) 3, Neutrophils (%) (Auto) 44, Lymphocytes (%) (Auto) 39, Monocytes (%) (Auto) 7, Eosinophils (%) (Auto) 7, Basophils (%) (Auto) 1, Neutrophils # (Auto) 3.0, Lymphocytes # (Auto) 2.7, Monocytes # (Auto) 0.5, Eosinophils # (Auto) 0.5, Basophils # (Auto) 0.0, Immature Granulocyte # (Auto) 0.2, Sodium Level 137, Potassium Level 3.5, Chloride Level 95, Carbon Dioxide Level 30, Anion Gap 12, Blood Urea Nitrogen 15, Creatinine 0.78, Estimat Glomerular Filtration Rate 108, BUN/Creatinine R atio 19, Glucose Level 113, Calcium Level 10.0, Corrected Calcium 10.2, Total Bilirubin 0.6, Aspartate Amino Transf (AST/SGOT) 38, Alanine Aminotransferase (ALT/SGPT) 69, Alkaline Phosphatase 78, Total Protein 7.6, Albumin 3.7 10/29/20 10:48: Glucometer 185 10/29/20 16:44: Glucometer 115 10/29/20 21:38: Glucometer 146 10/30/20 05:46: Glucometer 126 10/30/20 11:32: Glucometer 145 10/30/20 16:22: Glucometer 119 10/30/20 21:47: Glucometer 117 10/31/20 05:35: Glucometer 119 10/31/20 11:26: Glucometer 140 Discharge Home Medications: Active Scripts Active Advocate Syringes (Syringe & Needle,Insulin,1 ml) 1 Each Disp.syrin Each MC ACHS Novolog (Insulin Aspart) 100 Unit/1 Ml Susp 5 Unit SQ AC Levemir (Insulin Determir) 1,000 Units/10 Ml Soln 20 Units SQ BID Allopurinol 100 Mg Tablet 100 Mg PO DAILY@0700 Synthroid (Levothyroxine Sodium) 75 Mcg Tablet 75 Mcg PO DAILY@0630 Reported Omeprazole 40 Mg Capsule.dr 40 Mg PO DAILY PRN Tylenol Extra Strength (Acetaminophen) 500 Mg Tablet 1,000 Mg PO Q8H PRN Tessalon Perles (Benzonatate) 100 Mg Capsule 200 Mg PO TID PRN TAKES 2 (100MG) CAPS Prometh-Codein 6.25-10 mg/5 ml (Promethazine HCl/Codeine) 5 Ml Syrup 5 Ml PO BID PRN Proair Hfa (Albuterol Sulfate) 1 Puff Puff 2 Puff IH Q4H PRN Instructions to patient/family Please see electronic discharge instructions given to patient. Diagnosis/Problems Diagnosis/Problems (1) COVID-19 Status: Acute (2) Diabetes mellitus, new onset (3) Gout attack Status: Acute MIKAELA LAYNE DO Oct 31, 2020 10:56
--- NOTE | 2020-10-31 11:53 | Therapy Team Discharge Summary ---
Therapy Discharge Summary Discharge Recommendations Date of Discharge Physical Therapy Patient came to rehab with post covid 19 debility. Upon evaluation patient performed bed mobility and supine <-> sit with independence, sit <-> stand and transfers with CGA, car transfer CGA, ambulated 400' with a rolling walker with CGA (including 50' with at least 2 turns of 90 degrees and 10' over an uneven surface), and went up and down 4 steps using 2 handrails with CGA. Patient has been performing bed mobility and transfer training, balance and endurance training, functional strengthening, stair training, gait training, and education. Patient has made good progress but has not met his half-way goals for transfers or stairs. Now, patient performs bed mobility and supine <-> sit with independence, sit <-> stand independent, transfers and car transfer with setup, ambulates 300' with a rolling walker with independence (including 50' with at least 2 turns of 90 degrees and 10' over an uneven surface), can go up and down 8 steps using 2 handrails with SBA, and can roll picker an object from the floor with SBA. Patient is being discharged from this facility today and will be discharged from PT at this time. Occupational Therapy Decreased Activ Tolerance, Decreased Safety Aware, Decreased UE Strength, Impaired Self-Care Skills PT Asphalt Distributor Tender Goals Retirement Goals PT Asphalt Distributor Tender Goals Time Frame: Nov 18, 2020 Roll Left to Right (QC): 6 Sit to Lying (QC): 6 Lying-Sitting on Side/Bed(QC): 6 Sit to Stand (QC): 6 Chair/Oys-og-Cdies Xfer(QC): 6 Car Transfer (QC): 6 Does the Patient Walk: Yes Walk 10 feet (QC): 6 Walk 10ft-Uneven Surface(QC): 6 Walk 50ft with 2 Turns (QC): 6 Walk 150 ft (QC): 6 Wheel 50 feet with 2 turns (QC: 9 1 Step (curb) (QC): 5 4 Steps (QC): 5 12 Steps (QC): 5 Picking up an Object (QC): 6 OT Asphalt Distributor Tender Goals Retirement Goals Eating (QC): 6 (met) Oral Hygiene (QC): 6 (not met) Shower/Bathe Self (QC): 6 (met) Upper Body Dressing (QC): 6 (not met) Lower Body Dressing (QC): 6 (not met) On/Off Footwear (QC): 6 (not met) Toileting Hygiene (QC): 6 (met) Toilet/Commode Transfer (QC): 6 1=Demonstrate adherence to instructed precautions during ADL tasks. 2=Patient will verbalize/demonstrate understanding of assistive devices/modifications for ADL. 3=Patient will improve strength/tolerance for activity to enable patient to perform ADL's. ANTHONY CORNEJO PT Oct 31, 2020 11:53
[2020-10-31] MEDS: ENOXAPARIN 40 MG/0.4 ML (LOVENOX) SYR SC SCH (12:20)
[2020-10-31 14:01] VITALS: BP 120/76
--- NOTE | 2020-10-31 15:28 | Therapy Team Discharge Summary ---
Therapy Discharge Summary Discharge Recommendations Date of Discharge 10/31/20 Therapy D/C Recommendations: Occupational Therapy Home Care, Homemaker Support Occupational Therapy Patient came to rehab with post covid 19 debility. Upon evaluation patient was min-mod a for toileting/transfer, LB dressing, and bathing, sba for upper body dressing, and set up for eating and oral care. During stay, OT focused on balance, safety, endurance, UE strength/ROM, compensatory strategies, and energy conservation techniques in order to improve indep with adls and transfers. Pt has made good progress but did not met all of his intermediate project manager goals including: upper/lower body dressing and oral hygiene which he was set up for. Per , she will be there to help him with ADLs. Patient is being discharged from this facility today and will be discharged from OT at this time. Decreased Activ Tolerance, Decreased Safety Aware, Decreased UE Strength, Impaired Self-Care Skills PT Halfway Goals Machine Stone Polisher Apprentice Goals PT Machine Stone Polisher Apprentice Goals Time Frame: Nov 18, 2020 Roll Left to Right (QC): 6 Sit to Lying (QC): 6 Lying-Sitting on Side/Bed(QC): 6 Sit to Stand (QC): 6 Chair/Qsv-xr-Yhouy Xfer(QC): 6 Car Transfer (QC): 6 Does the Patient Walk: Yes Walk 10 feet (QC): 6 Walk 10ft-Uneven Surface(QC): 6 Walk 50ft with 2 Turns (QC): 6 Walk 150 ft (QC): 6 Wheel 50 feet with 2 turns (QC: 9 1 Step (curb) (QC): 5 4 Steps (QC): 5 12 Steps (QC): 5 Picking up an Object (QC): 6 OT Halfway Goals Machine Stone Polisher Apprentice Goals Eating (QC): 6 (met) Oral Hygiene (QC): 6 (not met) Shower/Bathe Self (QC): 6 (met) Upper Body Dressing (QC): 6 (not met) Lower Body Dressing (QC): 6 (not met) On/Off Footwear (QC): 6 (not met) Toileting Hygiene (QC): 6 (met) Toilet/Commode Transfer (QC): 6 1=Demonstrate adherence to instructed precautions during ADL tasks. 2=Patient will verbalize/demonstrate understanding of assistive ailyn gera/modifications for ADL. 3=Patient will improve strength/tolerance for activity to enable patient to perform ADL's. Tanya Mccormick OT Oct 31, 2020 15:28
== END 2020-10-31 14:00 | disposition home health service (06) | DRG 948 ==
PROVIDERS: ADMIT Internal Medicine; ATTEND Internal Medicine
DX: R53.81 Other malaise (principal); Z86.16 Personal history of COVID-19; Z87.01 Personal history of pneumonia (recurrent); R41.0 Disorientation, unspecified; M10.9 Gout, unspecified; E11.9 Type 2 diabetes mellitus without complications; F17.220 Nicotine dependence, chewing tobacco, uncomplicated; E03.9 Hypothyroidism, unspecified; D64.9 Anemia, unspecified
CPT/HCPCS: 36415; 80053; 82947; 85025; 94640; 94760; 94761

== ENCOUNTER → 2020-11-10 | Outpatient (CLI) | payer MEDICAID ==
[~2020-11-10] MED LIST changes: +ALLO100T PO; +INSU100V16 SQ; +INSU100V5 SQ; +LEVO75TA PO; +SYRI-1325 MC
== END ==
LOC: WOUNDCARE 13:10
PROVIDERS: ATTEND Surgery
DX: L89.893 Pressure ulcer of other site, stage 3 (principal); E11.622 Type 2 diabetes mellitus with other skin ulcer; U07.1 COVID-19
CPT/HCPCS: 11042; G0463

== ENCOUNTER → 2020-11-18 | Outpatient (CLI) | payer MEDICAID | LOC: WOUNDCARE 10:53 | PROVIDERS: ATTEND Surgery | DX: L89.893 Pressure ulcer of other site, stage 3 (principal); E11.622 Type 2 diabetes mellitus with other skin ulcer; U07.1 COVID-19; E11.52 Type 2 diabetes mellitus with diabetic peripheral angiopathy with gangrene | CPT/HCPCS: 99213 ==

== ENCOUNTER → 2020-11-24 | Outpatient (CLI) | payer MEDICAID | LOC: WOUNDCARE 12:45 | PROVIDERS: ATTEND Surgery | DX: L89.893 Pressure ulcer of other site, stage 3 (principal); E11.622 Type 2 diabetes mellitus with other skin ulcer; U07.1 COVID-19; E11.52 Type 2 diabetes mellitus with diabetic peripheral angiopathy with gangrene | CPT/HCPCS: 99213 ==

== ENCOUNTER → 2020-12-01 | Outpatient (CLI) | payer MEDICAID | LOC: WOUNDCARE 10:10 | PROVIDERS: ATTEND Family Medicine | DX: L89.893 Pressure ulcer of other site, stage 3 (principal); E11.622 Type 2 diabetes mellitus with other skin ulcer; U07.1 COVID-19; E11.52 Type 2 diabetes mellitus with diabetic peripheral angiopathy with gangrene | CPT/HCPCS: 99213 ==

== ENCOUNTER → 2020-12-09 | Outpatient (CLI) | payer MEDICAID | LOC: WOUNDCARE 08:51 | PROVIDERS: ATTEND Family Medicine | DX: U07.1 COVID-19 (principal); E11.622 Type 2 diabetes mellitus with other skin ulcer; E11.52 Type 2 diabetes mellitus with diabetic peripheral angiopathy with gangrene; L89.893 Pressure ulcer of other site, stage 3 | CPT/HCPCS: 99213 ==

== ENCOUNTER → 2020-12-19 | Outpatient (CLI) | payer MEDICAID | LOC: WOUNDCARE 09:13 | PROVIDERS: ATTEND Family Medicine | DX: L89.893 Pressure ulcer of other site, stage 3 (principal); E11.622 Type 2 diabetes mellitus with other skin ulcer; U09.9 Post COVID-19 condition, unspecified; E11.65 Type 2 diabetes mellitus with hyperglycemia; E11.52 Type 2 diabetes mellitus with diabetic peripheral angiopathy with gangrene | CPT/HCPCS: 99212 ==

== ENCOUNTER → 2020-12-24 | Outpatient (CLI) | payer MEDICAID | LOC: WOUNDCARE 10:16 | PROVIDERS: ATTEND Family Medicine | DX: L89.893 Pressure ulcer of other site, stage 3 (principal); E11.622 Type 2 diabetes mellitus with other skin ulcer; U09.9 Post COVID-19 condition, unspecified; E11.65 Type 2 diabetes mellitus with hyperglycemia; E11.52 Type 2 diabetes mellitus with diabetic peripheral angiopathy with gangrene | CPT/HCPCS: 99211 ==

== ENCOUNTER 2021-11-04 08:00 | Emergency (ER) | payer MEDICAID ==
[~2021-11-04] VITALS: Ht 172 cm; Wt 122.0 kg
[~2021-11-04 08:00] MED LIST changes: +CYCL10TA25 PO; -CYCL10TA9 PO
--- NOTE | 2021-11-04 08:57 | ED General ---
General Chief Complaint: Rect Problems Stated Complaint: RECTAL PAIN Nursing Triage Note: PT STATES HEMORRHOIDS BROUGHT ON BY CONSTIPATION, HAS HAD THEM BEFORE BUT NOT THIS BAD Source of Information: Patient Exam Limitations: No Limitations (ROSE MARIE GUNDERSON MED STUDENT) History of Present Illness Date Seen by Provider: Nov 04, 2021 Time Seen by Provider: 08:35 Initial Comments Pollo Evans is a 46 yo male who presents for rectal pain. Pt has hx of HTN, diabetes, gout, GERD and hemorrhoids. Pt reports on he had trouble passing a hard stool and he felt like his rectum ripped. Pt also reports he was getting out of the tub last night and felt his rectum rip. He saw Brett Sexton at [facility] on Tuesday for this problem and was given hydrocortisone cream and told to take metamucil. Pt has been using the hydrocortisone cream, witch anuradha pads and warm baths with little relief. Pt denies trying any numbing creams. Pt also reports he was getting out of the tub last night and felt his rectum rip. He also states he is being scheduled for a colonoscopy by [facility] within the next few weeks with Dr. Adames. Pt reports his last BM was last night and it was loose, but no blood was noted. Pt does report blood with previous stools, but denies clots. Pt denies fevers, chills, N/V/D, abdominal pain. ROS negative unless ot herwise stated. Timing/Duration: 4-5 Days Associated Systoms: Denies Symptoms (ROSE MARIE GUNDERSON MED STUDENT) Allergies and Home Medications Allergies Coded Allergies: No Known Drug Allergies (Unverified , 04/02/12) Patient Home Medication List Home Medication List Reviewed: Yes (EVERETTE LLOYD MD) Acetaminophen (Tylenol Extra Strength) 500 Mg Tablet, 1,000 MG PO Q8H PRN for PAIN-MILD (1-4), (Reported) Entered as Reported by: QUENTIN ORTEGA on 10/08/20 153 Albuterol Sulfate (Proair Hfa) 1 Puff Puff, 2 PUFF IH Q4H PRN for SHORTNESS OF BREATH, (Reported) Entered as Reported by: QUENTIN ORTEGA on 10/08/20 153 Allopurinol (Allopurinol) 100 Mg Tablet, 100 MG PO DAILY@0700 Prescribed by: MIKAELA LAYNE on 10/30/20 115 Benzonatate (Tessalon Perles) 100 Mg Capsule, 200 MG PO TID PRN for COUGH, (Reported) Entered as Reported by: QUENTIN ORTEGA on 10/08/20 153 Clindamycin HCl (Clindamycin HCl) 300 Mg Capsule, 300 MG PO TID Prescribed by: EVERETTE LLOYD on 11/04/21 1227 Hydrocodone/Acetaminophen (Hydrocodone-Acetamin 5-325 mg) 5 Mg-325 Mg Tablet, 1 TAB PO Q6H PRN for PAIN-MODERATE (5-7) Prescribed by: EVERETTE LLOYD on 11/04/21 1227 Insulin Aspart (Novolog) 100 Unit/1 Ml Susp, 5 UNIT SQ AC Prescribed by: MIKAELA LAYNE on 10/30/20 115 Insulin Determir (Levemir) 1,000 Units/10 Ml Soln, 20 UNITS SQ BID Prescribed by: MIKAELA LAYNE on 10/30/20 115 Levothyroxine Sodium (Synthroid) 75 Mcg Tablet, 75 MCG PO DAILY@0630 Prescribed by: MIKAELA LAYNE on 10/30/20 115 Omeprazole (Omeprazole) 40 Mg Capsule.dr, 40 MG PO DAILY PRN for HEARTBURN, (Reported) Entered as Reported by: QUENTIN ORTEGA on 10/08/20 153 Ondansetron (Ondansetron Odt) 4 Mg Tab.rapdis, 4 MG PO Q8H PRN for nausea Prescribed by: EVERETTE LLOYD on 11/04/21 122 Promethazine HCl/Codeine (Prometh-Codein 6.25-10 mg/5 ml) 5 Ml Syrup, 5 ML PO BID PRN for COUGH, (Reported) Entered as Reported by: QUENTIN ORTEGA on 10/08/20 1533 Syringe & Needle,Insulin,1 ml (Advocate Syringes) 1 Each Disp.syrin, EACH MC ACHS, (DME) Prescribed by: MIKAELA LAYNE on 10/30/20 115 Review of Systems Review of Systems Constitutional: No chills, No fever EENTM: No blurred vision, No vision loss Respiratory: No cough, No short of breath Cardiovascular: No chest pain, No palpitations Gastrointestinal: No abdominal pain; constipation, heartburn; No melena, No nausea, No vomiting Genitourinary: No dysuria, No frequency Musculoskeletal: No back pain, No muscle pain Skin: No lesions, No lumps, No rash Psychiatric/Neurological: Denies Headache, Denies Numbness Hematologic/Lymphatic: No Symptoms Reported Immunological/Allergic: no symptoms reported (ROSE MARIE GUNDERSON) Past Tcqtheh-Ecipgr-Guizyy Hx Patient Social History Tobacco Use?: No Substance use?: No Alcohol Use?: No (ROSE MARIE GUNDERSON) Immunizations Up To Date PED Vaccines UTD: Yes First/Initial COVID19 Vaccinat: 09/23/20 Second COVID19 Vaccination Loco: 09/23/20 Third COVID19 Vaccination Date: 09/23/20 (ROSE MARIE GUNDERSON) Seasonal Allergies Seasonal Allergies: No (ROSE MARIE GUNDERSON) Past Medical History Surgery/Hospitalization HX: RENAL STONES, GOUT, BAD COVID- PUT ON VENTILATOR FOR 18 DAYS Surgeries: Yes (kidney stones) Ear Surgery, Renal Respiratory: No Cardiac: No Neurological: Yes Concussion Reproductive Disorders: No Sexually Transmitted Disease: No HIV/AIDS: No Genitourinary: Yes Kidney Stones Gastrointestinal: No Musculoskeletal: Yes Gout Endocrine: No Hypothyroidsim, Diabetes, Non-Insulin dep HEENT: No Cancer: No Psychosocial: No Integumentary: No Blood Disorders: No Adverse Reaction/Blood Tranf: No (ROSE MARIE GUNDERSON) Family Medical History No Pertinent Family Hx (ROSE MARIE GUNDERSON) Physical Exam Vital Signs Vital Signs - First Documented 11/04/21 08:25 Temp 36.8 Pulse 92 Resp 20 B/P (MAP) 125/98 (107) Pulse Ox 95 O2 Delivery Room Air (EVERETTE LLOYD MD) Vital Signs Capillary Refill : Less Than 3 Seconds (ROSE MARIE GUNDERSON STUDENT) Height, Weight, BMI Height: 5'7.00" Weight: 250lbs. 0oz. 113.285647vd; 41.00 BMI Method:Stated General Appearance: No Apparent Distress, WD/WN HEENT: PERRL/EOMI Neck: Full Range of Motion, Normal Inspection Respiratory: Chest Non Tender, Lungs Clear Cardiovascular: Regular Rate, Rhythm, No Murmur Gastrointestinal: Normal Bowel Sounds, Non Tender, Soft Rectal: Hemorrhoids (thrombosed just distal anal orifice in the perineum) Back: Normal Inspection, No Vertebral Tenderness Extremity: Non Tender, No Pedal Edema Neurologic/Psychiatric: Alert, Oriented x3, Normal Mood/Affect Skin: Normal Color, Warm/Dry (ROSE MARIE GUNDERSON Plazes STUDENT) Procedures/Interventions I&D : Site: perineum Blade Size: 11 Progress This procedure was done to remove what was suspected to be a thrombosed hemorrhoid. Pt consented to procedure. Lidocaine gel was applied prior to 1% lidocaine injection. An 11 blade was used to create a small incision around a purplish hematoma. When incised, there was copious amounts of foul smelling, purulent drainage. Upon rectal exam there was fluctuance within the rectal vault. The procedure was terminated. A wound culture was obtained. Dr. Adames, general surgeon, was consulted for possible incision and drainage. (ROSE MARIE GUNDERSON Plazes STUDENT) Date of ETT Placement: Oct 08, 2020 (ROSE MARIE GUNDERSON Plazes STUDENT) Suture Size: 5-0 (ROSE MARIE GUNDERSON Plazes DEONNA) Progress/Results/Core Measures Suspected Sepsis SIRS Temperature: Pulse: 92 Respiratory Rate: 20 Laboratory Tests 11/04/21 10:50: White Blood Count 10.3 Blood Pressure 125 /98 Mean: 107 Laboratory Tests 11/04/21 10:50: Creatinine 0.95, Platelet Count 179 (ROSE MARIE GUNDERSON Plazes STUDENT) SIRS Laboratory Tests 11/04/21 10:50: White Blood Count 10.3 Laboratory Tests 11/04/21 10:50: Creatinine 0.95, Platelet Count 179 (EVERETTE LLOYD MD) Results/Orders Lab Results Laboratory Tests Test 11/04/21 10:50 Range/Units White Blood Count 10.3 4.3-11.0 10^3/uL Red Blood Count 5.45 4.30-5.52 10^6/uL Hemoglobin 14.9 13.3-17.7 g/dL Hematocrit 46 40-54 % Mean Corpuscular Volume 85 80-99 fL Mean Corpuscular Hemoglobin 27 25-34 pg Mean Corpuscular Hemoglobin Concent 32 32-36 g/dL Red Cell Distribution Width 14.1 10.0-14.5 % Platelet Count 179 130-400 10^3/uL Mean Platelet Volume 10.7 9.0-12.2 fL Immature Granulocyte % (Auto) 0 % Neutrophils (%) (Auto) 74 42-75 % Lymphocytes (%) (Auto) 17 12-44 % Monocytes (%) (Auto) 6 0-12 % Eosinophils (%) (Auto) 2 0-10 % Basophils (%) (Auto) 1 0-10 % Neutrophils # (Auto) 7.6 1.8-7.8 10^3/uL Lymphocytes # (Auto) 1.8 1.0-4.0 10^3/uL Monocytes # (Auto) 0.6 0.0-1.0 10^3/uL Eosinophils # (Auto) 0.3 0.0-0.3 10^3/uL Basophils # (Auto) 0.1 0.0-0.1 10^3/uL Immature Granulocyte # (Auto) 0.0 0.0-0.1 10^3/uL Sodium Level 141 135-145 MMOL/L Potassium Level 4.2 3.6-5.0 MMOL/L Chloride Level 105 98-107 MMOL/L Carbon Dioxide Level 22 21-32 MMOL/L Anion Gap 14 5-14 MMOL/L Blood Urea Nitrogen 12 7-18 MG/DL Creatinine 0.95 0.60-1.30 MG/DL Estimat Glomerular Filtration Rate 101 BUN/Creatinine Ratio 13 Glucose Level 141 H 70-105 MG/DL Calcium Level 9.8 8.5-10.1 MG/DL (EVERETTE LLOYD MD) My Orders Orders - EVERETTE LLOYD MD Lidocaine 2% Viscous 15 Ml (Xylocaine Vi (11/04/21 09:45) Hydrocodone/Apap 7.5/325 Tab (Lortab 7. (11/04/21 09:45) Lidocaine 1% Inj 20 Ml (Xylocaine 1% Inj (11/04/21 09:45) Lidocaine 1% Inj 10 Ml (Xylocaine 1% Inj (11/04/21 09:48) Lidocaine 1% Inj 10 Ml (Xylocaine 1% Inj (11/04/21 10:00) Ed Iv/Invasive Line Start (11/04/21 10:28) Cbc With Automated Diff (11/04/21 10:28) Basic Metabolic Panel (11/04/21 10:28) Clindamycin 900 Mg/50 Ml Ivpb (Cleocin P (11/04/21 10:45) Wound Culture (11/04/21 10:40) Morphine Injection (Morphine Injection (11/04/21 11:17) (EVERETTE LLOYD MD) Medications Given in ED Current Medications Medications Dose Ordered Sig/Tai Route Start Time Stop Time Status Last Admin Dose Admin Acetaminophen/ Hydrocodone Bitart 1 ea ONCE ONCE PO 11/04/21 09:45 11/04/21 09:46 DC 11/04/21 09:50 1 EA Clindamycin Phosphate/Dextrose 50 ml @ 100 mls/hr ONCE ONCE IV 11/04/21 10:45 11/04/21 11:14 DC 11/04/21 11:02 100 MLS/HR Lidocaine HCl 1 ml ONCE ONCE TOP 11/04/21 10:00 11/04/21 10:01 DC 11/04/21 09:50 1 ML Lidocaine HCl 5 ml ONCE ONCE PO 11/04/21 09:45 11/04/21 09:46 DC 11/04/21 09:50 5 ML (EVERETTE LLOYD MD) Vital Signs/I&O 11/04/21 11/04/21 11/04/21 08:25 09:50 11:27 Temp 36.8 36.8 36.8 Pulse 92 Resp 20 B/P (MAP) 125/98 (107) Pulse Ox 95 O2 Delivery Room Air (EVERETTE LLOYD MD) Vital Signs/I&O Capillary Refill : Less Than 3 Seconds (ROSE MARIE GUNDERSON MED STUDENT) Blood Pressure Mean: 107 Progress Note : Time: 10:41 Progress Note Procedure revealed perineal abscess at the rectal verge. Dr. Adames, general surgery, was consulted for possible incision and drainage in the OR. He has kindly agreed to consult. (ROSE MARIE GUNDERSON MED STUDENT) Progress Note : Time: 10:43 Progress Note 46 yo male with rectal pain since the weekend. h/o constipation and hemorrhoids. using witch anuradha without relief and steroid suppositories. No F/C/N/V. h/o DM on insulin and pills. Physical exam showed a significant amount of edema along the inferior portion of the anal verge. A small half centimeter area of purple discoloration consistent with what appeared to be a thrombosed external hemorrhoid. No perineal tenderness. No surrounding erythema. No active drainage. Very very tender to palpation. Assessment thrombosed external hemorrhoid. After local anesthesia with lidocaine jelly and 1 cc of 1% lidocaine injected into the area an 11 blade was used to incise the area. I was no more than 1 to 2 mm into the lesion when there was a copious amount of foul-smelling purulent material that came out of the wound. At this time I stopped the procedure, we obtained a culture. I did a digital rectal examination and there is about a centimeter to a centimeter of half and a half of fluctuance just inside the rectal vault at the 6 o'clock position. We contacted general surgery as the patient is scheduled with Dr. Adames for colonoscopy in the next few weeks. They will be down to see (EVERETTE LLOYD MD) Departure Impression Primary Impression: Perirectal abscess Disposition: 01 HOME, SELF-CARE Condition: Improved Departure-Patient Inst. Decision time for Depature: 12:25 (EVERETTE LLOYD MD) Referrals: [facility] [place] (PCP/Family) Primary Care Physician Patient Instructions: Hemorrhoids (DC), Anal Abscess and Fistula, Adult (DC) Add. Discharge Instructions: Follow up with Dr. Adames tomorrow morning 11/05/21 at 10am for an incision check We will send hydrocodone to the pharmacy for pain relief, take this as needed for pain. Do not abuse this medication, it can be addicting. We will send numbing cream for hemorrhoids, apply as needed. We will send clindamycin, an antibiotic, to the pharmacy. Be sure to take all of this medication. Drink plenty of water to stay hydrated. Continue taking metamucil, do not take more than the recommended amount on the bottle. You can take a stool softener as well. Return to the ER if you have fever, chills, blood clots in your stool or foul smelling stools with abdominal pain. All discharge instructions reviewed with patient and/or family. Voiced u nderstanding. Scripts Ondansetron (Ondansetron Odt) 4 Mg Tab.rapdis 4 MG PO Q8H PRN for nausea, #15 TAB Prov: EVERETTE LLOYD MD 11/04/21 Clindamycin HCl (Clindamycin HCl) 300 Mg Capsule 300 MG PO TID for 10 Days, #30 CAP Prov: EVERETTE LLOYD MD 11/04/21 Hydrocodone/Acetaminophen (Hydrocodone-Acetamin 5-325 mg) 5 Mg-325 Mg Tablet 1 TAB PO Q6H PRN for PAIN-MODERATE (5-7), #15 TAB Prov: EVERETTE LLOYD MD 11/04/21 Work/School Note: Work Release Form Date Seen in the Emergency Department: Nov 04, 2021 Return to Work: Nov 09, 2021 Verification and Attestation of Medical Student E/M Service A medical student performed and documented this service in my presence. I reviewed and verified all information documented by the medical student and made modifications to such information, when appropriate. I personally performed the physical exam and medical decision making. Everette Lloyd, Nov 04, 2021,12:35 (EVERETTE LLOYD MD) ROSE MARIE GUNDERSON MED STUDENT Nov 04, 2021 08:57 EVERETTE LLOYD MD Nov 04, 2021 10:46
[2021-11-04] MEDS ORDERED: LIDOCAINE 1% INJ 20 ML VIAL INJ ONE (09:45)
[2021-11-04] MEDS ORDERED: HYDROcodone/APAP 7.5 MG/325 MG (LORTAB, LORCET PLUS) TABLET PO ONE (09:45)
[2021-11-04] MEDS ORDERED: LIDOCAINE 2% VISCOUS 15 ML UDC PO ONE (09:45)
[2021-11-04] MEDS ORDERED: LIDOCAINE 1% INJ 10 ML VIAL ONE (09:48)
[2021-11-04] MEDS ORDERED: LIDOCAINE 1% INJ 10 ML VIAL TOP ONE (10:00)
[2021-11-04] MEDS ORDERED: CLINDAMYCIN 900 MG/50 ML IVPB 50 ML IV ONE (10:45)
[2021-11-04 11:06] LABS: BASOPHILS # (AUTO) 0.1 10^3/uL (0.0-0.1); BASOPHILS % (AUTO) 1 % (0-10); EOSINOPHILS # (AUTO) 0.3 10^3/uL (0.0-0.3); EOSINOPHILS % (AUTO) 2 % (0-10); HEMATOCRIT 46 % (40-54); HEMOGLOBIN 14.9 g/dL (13.3-17.7); LYMPHOCYTES # (AUTO) 1.8 10^3/uL (1.0-4.0); LYMPHOCYTES % (AUTO) 17 % (12-44); MEAN CORPUSCULAR HEMOGLOBIN 27 pg (25-34); MEAN CORPUSCULAR HGB CONC 32 g/dL (32-36); MEAN CORPUSCULAR VOLUME 85 fL (80-99); MEAN PLATELET VOLUME 10.7 fL (9.0-12.2); MONOCYTES # (AUTO) 0.6 10^3/uL (0.0-1.0); MONOCYTES % (AUTO) 6 % (0-12); NEUTROPHILS # (AUTO) 7.6 10^3/uL (1.8-7.8); NEUTROPHILS % (AUTO) 74 % (42-75); PLATELET COUNT 179 10^3/uL (130-400); WHITE BLOOD COUNT 10.3 10^3/uL (4.3-11.0)
[2021-11-04] MEDS ORDERED: morphine INJ 10 MG/ML 1ML (SYR OR VIAL) IVP STA (11:17)
[2021-11-04 11:23] LABS: POTASSIUM 4.2 MMOL/L (3.6-5.0)
[2021-11-04 11:24] LABS: CALCIUM 9.8 MG/DL (8.5-10.1)
[2021-11-04 11:28] LABS: CREATININE SERUM 0.95 MG/DL (0.60-1.30)
[2021-11-04] MEDS ORDERED: ONDA4TAB11 PO (12:27)
[2021-11-04] MEDS ORDERED: ACHD5005 PO (12:27)
[2021-11-04] MEDS ORDERED: CLIN-144 PO (12:27)
[2021-11-04 12:42] VITALS: BP 125/98
--- NOTE | 2021-11-04 20:24 | Consultation - Surgery ---
History of Present Illness History of Present Illness Patient Consulted On(nora/time) 11/04/21 20:17 Date Seen by Provider: Nov 04, 2021 Time Seen by Provider: 11:00 History of Present Illness Because requested by Dr. Lloyd for perirectal abscess. Seen and evaluated in emergency department. Patient is a 46-year-old male has been having bowel issues. He has constipation and hemorrhoids. He was seen in the next couple weeks he states for colonoscopy. Patient having more discomfort when trying to have a bowel movement. A lot of pressure down in the rectum. Webb a ripping tear or some discomfort in the rectum yesterday and has continued to have discomfort in the rectum and went to the emergency department for further evaluation. It was felt that he had a thrombosed hemorrhoid so Dr. Martínez is try to do incision and drainage to help him up purulent material erupted and so she stopped. She is called me to further evaluate. Patient is diabetic. He denies any nausea vomiting fever sweats chills shortness of breath or chest pain. Allergies and Home Medications Allergies Coded Allergies: No Known Drug Allergies (Unverified , 04/02/12) Patient Home Medication List Home Medication List Reviewed: Yes Acetaminophen (Tylenol Extra Strength) 500 Mg Tablet, 1,000 MG PO Q8H PRN for PAIN-MILD (1-4), (Reported) Entered as Reported by: QUENTIN ORTEGA on 10/08/20 1533 Albuterol Sulfate (Proair Hfa) 1 Puff Puff, 2 PUFF IH Q4H PRN for SHORTNESS OF BREATH, (Reported) Entered as Reported by: QUENTIN ORTEGA on 10/08/20 1533 Allopurinol (Allopurinol) 100 Mg Tablet, 100 MG PO DAILY@0700 Prescribed by: MIKAELA LAYNE on 10/30/20 1151 Benzonatate (Tessalon Perles) 100 Mg Capsule, 200 MG PO TID PRN for COUGH, (Re ported) Entered as Reported by: QUENTIN ORTEGA on 10/08/20 1533 Clindamycin HCl (Clindamycin HCl) 300 Mg Capsule, 300 MG PO TID Prescribed by: EVERETTE LLOYD on 11/04/21 1227 Hydrocodone/Acetaminophen (Hydrocodone-Acetamin 5-325 mg) 5 Mg-325 Mg Tablet, 1 TAB PO Q6H PRN for PAIN-MODERATE (5-7) Prescribed by: EVERETTE LLOYD on 11/04/21 1227 Insulin Aspart (Novolog) 100 Unit/1 Ml Susp, 5 UNIT SQ AC Prescribed by: MIKAELA LAYNE on 10/30/20 1151 Insulin Determir (Levemir) 1,000 Units/10 Ml Soln, 20 UNITS SQ BID Prescribed by: MIKAELA LAYNE on 10/30/20 1151 Levothyroxine Sodium (Synthroid) 75 Mcg Tablet, 75 MCG PO DAILY@0630 Prescribed by: MIKAELA LAYNE on 10/30/20 1151 Omeprazole (Omeprazole) 40 Mg Capsule.dr, 40 MG PO DAILY PRN for HEARTBURN, (Reported) Entered as Reported by: QUENTIN ORTEGA on 10/08/20 1533 Ondansetron (Ondansetron Odt) 4 Mg Tab.rapdis, 4 MG PO Q8H PRN for nausea Prescribed by: EVERETTE LLOYD on 11/04/21 1227 Promethazine HCl/Codeine (Prometh-Codein 6.25-10 mg/5 ml) 5 Ml Syrup, 5 ML PO BID PRN for COUGH, (Reported) Entered as Reported by: QUENTIN ORTEGA on 10/08/20 1533 Syringe & Needle,Insulin,1 ml (Advocate Syringes) 1 Each Disp.syrin, EACH [facility] ACHS, (DME) Prescribed by: MIKAELA LAYNE on 10/30/20 115 Past Nwpfrdd-Ytqhdb-Ukpfbx Hx Patient Social History Type Used: Smokeless Tobacco 2nd Hand Smoke Exposure: No Recent Hopitalizations: No Alcohol Use?: No Have you traveled recently?: No Immunizations Up To Date PED Vaccines UTD: Yes Seasonal Allergies Seasonal Allergies: No Surgeries History of Surgeries: Yes (kidney stones) Surgeries: Ear Surgery, Renal Respiratory History of Respiratory Disorde: No Cardiovascular History of Cardiac Disorders: No Neurological History of Neurological Disord: Yes Neurological Disorders: Concussion Reproductive System Hx Reproductive Disorders: No Sexually Transmitted Disease: No HIV/AIDS: No Genitourinary History of Genitourinary Disor: Yes Genitourinary Disorders: Kidney Stones Gastrointestinal History of Gastrointestinal Di: No Musculoskeletal History of Musculoskeletal Dis: Yes Musculoskeletal Disorders: Gout Endocrine History of Endocrine Disorders: No Endocrine Disorders: Hypothyroidsim, Diabetes, Non-Insulin dep HEENT History of HEENT Disorders: No Cancer History of Cancer: No Psychosocial History of Psychiatric Problem: No Integumentary History of Skin or Integumenta: No Blood Transfusions History of Blood Disorders: No Adverse Reaction to a Blood Tr: No Reviewed Nursing Assessment Reviewed/Agree w Nursing PMH: Yes Family Medical History Significant Family History: No Pertinent Family Hx Review of Systems-General Constitutional: No chills, No diaphoresis EENTM: No blurred vision, No double vision Respiratory: No cough, No dyspnea on exertion Cardiovascular: No chest pain, No palpitations Gastrointestinal: No nausea, No vomiting; other (Constipation) Genitourinary: No decreased output, No discharge Musculoskeletal: No back pain, No joint pain Skin: No change in color, No change in hair/nails Psychiatric/Neurological: Denies Anxiety, Denies Depressed, Denies Emotional Problems All Other Systems Reviewed Negative Unless Noted: Yes (Negative excepted noted.) Physical Exam-General Problems Physical Exam Vital Signs Vital Signs - First Documented 11/04/21 08:25 Temp 36.8 Pulse 92 Resp 20 B/P (MAP) 125/98 (107) Pulse Ox 95 O2 Delivery Room Air Capillary Refill : Less Than 3 Seconds General Appearance: no apparent distress, obese HEENT: PERRL/EOMI, normal ENT inspection Neck: non-tender, supple Respiratory: chest non-tender, no respiratory distress, no accessory muscle use Cardiovascular: regular rate, rhythm, no JVD Gastrointestinal: non tender, soft Rectal: other (Just anterior the anus pinhole opening from previous incision and drainage. Slight purulent material draining with little bit of pressure watershed tender to touch.) Back: no CVA tenderness, no vertebral tenderness Extremities: non-tender, normal inspection Neurologic/Psychiatric: no motor/sensory deficits, alert, normal mood/affect, oriented x 3 Skin: normal color, warm/dry Lymphatic: no adenopathy Data Review Labs Laboratory Tests 11/04/21 10:50: White Blood Count 10.3, Red Blood Count 5.45, Hemoglobin 14.9, Hematocrit 46, Mean Corpuscular Volume 85, Mean Corpuscular Hemoglobin 27, Mean Corpuscular Hemoglobin Concent 32, Red Cell Distribution Width 14.1, Platelet Count 179, Mean Platelet Volume 10.7, Immature Granulocyte % (Auto) 0, Neutrophils (%) (Auto) 74, Lymphocytes (%) (Auto) 17, Monocytes (%) (Auto) 6, Eosinophils (%) (Auto) 2, Basophils (%) (Auto) 1, Neutrophils # (Auto) 7.6, Lymphocytes # (Auto) 1.8, Monocytes # (Auto) 0.6, Eosinophils # (Auto) 0.3, Basophils # (Auto) 0.1, Immature Granulocyte # (Auto) 0.0, Sodium Level 141, Potassium Level 4.2, Chlo ride Level 105, Carbon Dioxide Level 22, Anion Gap 14, Blood Urea Nitrogen 12, Creatinine 0.95, Estimat Glomerular Filtration Rate 101, BUN/Creatinine Ratio 13, Glucose Level 141H, Calcium Level 9.8 Assessment/Plan Assessment/Plan Assessment/Plan Perirectal abscess Diabetes Obesity Rectal pain Patient discuss further incision and drainage to be able to evacuate the entire area. Patient understands risk and benefits and wishes to proceed. Patient understands need for daily packing. He will go to my office tomorrow for first packing change. Any issues be seen at that time. Patient going to be sent home on antibiotics. Dr. Lloyd will send with them. Patient and family understand plan. Procedure: Incision and drainage perirectal abscess Patient was prepped draped in sterile fashion timeout was performed. 6 mL of 1% lidocaine was used anesthetize the area. Once anesthetic effect took place 11 scalpel was used to further extend the incision that was present. Still a bit of purulent material erupted. A sterile Q-tip was then inserted through the incision breaking up loculations and the area was then irrigated and wound was packed with quarter inch iodoform gauze. Areas washed and dried and sterile bandage was applied. Patient tolerated procedure well. LYDIA RIVER DO Nov 04, 2021 20:24
== END 2021-11-04 12:42 | disposition home or self-care (01) ==
LOC: EDUNIT# 08:00 → ER 08:02
DX: K61.1 Rectal abscess (principal); Z86.16 Personal history of COVID-19; Z28.311 Partially vaccinated for COVID-19
CPT/HCPCS: 36415; 80048; 85025; 87070; 87205

== ENCOUNTER 2021-12-09 05:32 | Outpatient (CLI) | payer MEDICAID ==
[~2021-12-09] VITALS: Ht 172.7 cm; Wt 122.5 kg
[~2021-12-09 05:32] MED LIST changes: +CLIN-144 PO; +ONDA4TAB11 PO
[2021-12-10] MEDS ORDERED: ATOR20TA66 PO (10:02)
[2021-12-10] MEDS ORDERED: LISI10TA25 PO (10:02)
[2021-12-10] MEDS ORDERED: METF-865 PO (10:02)
== END 2021-12-10 10:04 | disposition home or self-care (01) ==
LOC: PREOP 05:32
PROVIDERS: ATTEND Surgery
DX: Z01.818 Encounter for other preprocedural examination (principal)

== ENCOUNTER 2022-01-10 09:56 | Emergency (ER) | payer MEDICAID ==
[~2022-01-10] VITALS: Ht 172.7 cm; Wt 122.5 kg
[~2022-01-10 09:56] MED LIST changes: +ALBU8.5H6 IH; +ATOR20TA66 PO; +LISI10TA25 PO; +METF-865 PO; -RT-ALBUINH IH
--- NOTE | 2022-01-10 10:27 | ED GI ---
General Chief Complaint: Rect Problems Stated Complaint: VEIN IN GROIN SWELLING Source of Information: Patient Exam Limitations: No Limitations (WOOD CORRALES) History of Present Illness Date Seen by Provider: Jan 10, 2022 Time Seen by Provider: 10:22 Initial Comments Patient is a 46 y/o M with history of perirectal abscess and hemorrhoids who presents to ER today with CC of rectal pain onset 3-4 days ago. Reports the pain is worse with defecation. Describes it as sharp and constant. Currently states his pain is at a 6 out of 10. Denies any blood in his stools or unusual discharge. Denies any fever. Denies hematuria or dysuria. Patient reports that 2 months ago he was seen here at [facility] ER for perirectal abscess and had a vein "cut open and drained" by Dr. Lloyd and Dr. River. He thinks that this might be the same issue again. States he has been using stool softener every other day, but his stools are consistently hard. Also states he has tried warm baths and hemorrhoid creams. Other past medical history includes DM, HTN, HLD and gout. Timing/Duration: 3-4 Days Severity/Quality: Moderate, Sharp (with defecation) Radiation: No Radiation Modifying Factors: Worsens With Defecating Associated Symptoms: No Fever/Chills (WOOD CORRALES) Allergies and Home Medications Allergies Coded Allergies: No Known Drug Allergies (Unverified , 01/10/22) Patient Home Medication List Home Medication List Reviewed: Yes (WOOD CORRALES) Albuterol Sulfate (Ventolin Hfa) 1 Puff Puff, 2 PUFF IH Q4H PRN for SHORTNESS OF BREATH, (Reported) Entered as Reported by: QUENTIN ORTEGA on 10/08/20 1533 Allopurinol (Allopurinol) 100 Mg Tablet, 100 MG PO DAILY@0700 Prescribed by: MIKAELA LAYNE on 10/30/20 1151 Atorvastatin Calcium (Atorvastatin Calcium) 20 Mg Tablet, 20 MG PO DAILY, (Reported) Entered as Reported by: GISSELLE MATTHEWS on 12/10/21 1002 Hydrocodone/Acetaminophen (Hydrocodone-Acetamin 5-325 mg) 5 Mg-325 Mg Tablet, 1 TAB PO Q6H PRN for PAIN-MODERATE (5-7) Prescribed by: EVERETTE LLOYD on 11/04/21 1227 Hydrocortisone Acetate (Anusol-Hc) 25 Mg Supp.rect, 25 MG RC HS Prescribed by: EVERETTE LLOYD on 01/10/22 1159 Insulin Determir (Levemir) 1,000 Units/10 Ml Soln, 20 UNITS SQ BID Prescribed by: MIKAELA LAYNE on 10/30/20 1151 Levothyroxine Sodium (Synthroid) 75 Mcg Tablet, 75 MCG PO DAILY@0630 Prescribed by: MIKAELA LAYNE on 10/30/20 1151 Lidocaine HCl (Lidocaine HCl) 3 % Cream..g., 28.35 GM TP Q6H PRN for PAIN- MODERATE (5-7) Prescribed by: EVERETTE LLOYD on 01/10/22 1159 Lisinopril (Lisinopril) 10 Mg Tablet, 10 MG PO DAILY, (Reported) Entered as Reported by: GISSELLE MATTHEWS on 12/10/21 1002 Metformin HCl (Metformin HCl ER) 500 Mg Tab.er.24h, 500 MG PO DAILY, (Reported) Entered as Reported by: GISSELLE MATTHEWS on 12/10/21 1002 Omeprazole (Omeprazole) 40 Mg Capsule.dr, 40 MG PO DAILY PRN for HEARTBURN, (Reported) Entered as Reported by: QUENTIN ORTEGA on 10/08/20 1533 Ondansetron (Ondansetron Odt) 4 Mg Tab.rapdis, 4 MG PO Q8H PRN for nausea Prescribed by: EVERETTE LLOYD on 11/04/21 1227 Oxycodone HCl/Acetaminophen (Percocet 5-325 mg Tablet) 1 Each Tablet, 1 TAB PO Q6H Prescribed by: EVERETTE LLOYD on 01/10/22 1200 Review of Systems Review of Systems Constitutional: No chills, No fever Gastrointestinal: Denies Abdominal Pain; Constipated; Denies Rectal Bleeding (WOOD CORRALES) Past Amleobg-Wuclgk-Kfwoty Hx Patient Social History Tobacco Use?: No Use of E-Cig and/or Vaping dev: No Substance use?: No Alcohol Use?: Yes Alcohol Frequency: Rarely (WOOD CORRALES) Immunizations Up To Date PED Vaccines UTD: Yes Influenza Vaccine Up-to-Date: No; Not Current First/Initial COVID19 Vaccinat: 09/23/20 Second COVID19 Vaccination Loco: 09/23/20 Third COVID19 Vaccination Date: 09/23/20 COVID19 Vaccine Manganese Wheeler: no vaccine however states had covid (WOOD CORRALES) Seasonal Allergies Seasonal Allergies: No (WOOD CORRALES) Past Medical History Surgery/Hospitalization HX: RENAL STONES, GOUT, BAD COVID- PUT ON VENTILATOR FOR 18 DAYS, PERIRECTAL ABCESS Surgeries: Yes (kidney stones) Ear Surgery, Renal Respiratory: No Cardiac: No Neurological: Yes Concussion Reproductive Disorders: No Sexually Transmitted Disease: No HIV/AIDS: No Genitourinary: Yes Kidney Stones Gastrointestinal: No Musculoskeletal: Yes Gout Endocrine: No Hypothyroidsim, Diabetes, Non-Insulin dep HEENT: No Cancer: No Psychosocial: No Integumentary: No Blood Disorders: No Adverse Reaction/Blood Tranf: No (WOOD CORRALES) Family Medical History No Pertinent Family Hx (WOOD CORRALES) Physical Exam Vital Signs Vital Signs - First Documented 01/10/22 10:05 Temp 36.4 Pulse 82 Resp 18 B/P (MAP) 144/92 (109) Pulse Ox 96 O2 Delivery Room Air (EVERETTE LLOYD MD) Vital Signs Capillary Refill : (WOOD CORRALES) Height/Weight/BMI Height: 5'7.00" Weight: 250lbs. 0oz. 113.121423lw; 41.07 BMI Method:Stated General Appearance: WD/WN, no apparent distress (WOOD CORRALES) Procedures/Interventions Date of ETT Placement: Oct 08, 2020 (WOOD CORRALES) Suture Size: 5-0 (WOOD CORRALES) Progress/Results/Core Measures Results/Orders Lab Results Laboratory Tests Test 01/10/22 10:45 Range/Units White Blood Count 6.1 4.3-11.0 10^3/uL Red Blood Count 5.67 H 4.30-5.52 10^6/uL Hemoglobin 15.4 13.3-17.7 g/dL Hematocrit 48 40-54 % Mean Corpuscular Volume 85 80-99 fL Mean Corpuscular Hemoglobin 27 25-34 pg Mean Corpuscular Hemoglobin Concent 32 32-36 g/dL Red Cell Distribution Width 14.0 10.0-14.5 % Platelet Count 186 130-400 10^3/uL Mean Platelet Volume 10.2 9.0-12.2 fL Immature Granulocyte % (Auto) 1 % Neutrophils (%) (Auto) 56 42-75 % Lymphocytes (%) (Auto) 32 12-44 % Monocytes (%) (Auto) 7 0-12 % Eosinophils (%) (Auto) 3 0-10 % Basophils (%) (Auto) 1 0-10 % Neutrophils # (Auto) 3.4 1.8-7.8 10^3/uL Lymphocytes # (Auto) 1.9 1.0-4.0 10^3/uL Monocytes # (Auto) 0.5 0.0-1.0 10^3/uL Eosinophils # (Auto) 0.2 0.0-0.3 10^3/uL Basophils # (Auto) 0.0 0.0-0.1 10^3/uL Immature Granulocyte # (Auto) 0.0 0.0-0.1 10^3/uL Sodium Level 139 135-145 MMOL/L Potassium Level 4.1 3.6-5.0 MMOL/L Chloride Level 103 98-107 MMOL/L Carbon Dioxide Level 25 21-32 MMOL/L Anion Gap 11 5-14 MMOL/L Blood Urea Nitrogen 14 7-18 MG/DL Creatinine 1.06 0.60-1.30 MG/DL Estimat Glomerular Filtration Rate 88 BUN/Creatinine Ratio 13 Glucose Level 169 H 70-105 MG/DL Calcium Level 9.6 8.5-10.1 MG/DL (EVERETTE LLOYD MD) My Orders Orders - EVERETTE LLOYD MD Ed Iv/Invasive Line Start (01/10/22 10:39) Cbc With Automated Diff (01/10/22 10:39) Basic Metabolic Panel (01/10/22 10:39) Hydrocodone/Apap 7.5/325 Tab (Lortab 7. (01/10/22 10:45) Ct Pelvis W (01/10/22 10:39) Blood Culture (01/10/22 10:40) Iohexol Injection (Omnipaque 350 Mg/Ml 1 (01/10/22 10:45) Received Contrast (Hold Metformin- Contr (01/10/22 10:45) Ns (Ivpb) (Sodium Chloride 0.9% Ivpb Bag (01/10/22 10:45) Blood Culture (01/10/22 10:46) Lidocaine 2% Jelly 6 Ml Syr (Xylocaine J (01/10/22 12:45) (EVERETTE LLOYD MD) Medications Given in ED Current Medications Medications Dose Ordered Sig/Tai Route Start Time Stop Time Status Last Admin Dose Admin Acetaminophen/ Hydrocodone Bitart 1 ea ONCE ONCE PO 01/10/22 10:45 01/10/22 10:46 DC 01/10/22 10:51 1 EA Iohexol 100 ml ONCE ONCE IV 01/10/22 10:45 01/10/22 10:46 DC 01/10/22 10:50 100 ML Lidocaine HCl 6 ml ONCE ONCE TOP 01/10/22 12:45 01/10/22 12:43 DC 01/10/22 12:41 6 ML Sodium Chloride 100 ml ONCE ONCE IV 01/10/22 10:45 01/10/22 10:46 DC 01/10/22 10:50 80 ML (EVERETTE LLOYD MD) Vital Signs/I&O 01/10/22 01/10/22 10:05 12:42 Temp 36.4 Pulse 82 84 Resp 18 18 B/P (MAP) 144/92 (109) 124/100 Pulse Ox 96 94 O2 Delivery Room Air (EVERETTE LLOYD MD) Progress Progress Note : Time: 11:51 Progress Note Patient seen and evaluated by me, 46-year-old with rectal pain for the last 3 or 4 days. No reported fevers or chills. Significantly painful bowel movements. No drainage or blood that he has noticed. All recent perirectal abscess a couple of months ago. Patient has been taking stool softeners. Evaluation today includes physical exam with basic laboratory studies as well as a CT abdomen pelvis with IV contrast. CT did not reveal any discrete abscess. His ECG is normal. Clinically not septic. Discussed findings and plan of care with the patient. Prescribed him Anusol HC the suppositories. I counseled him on the use of the steroid suppositories and that he will need to watch his blood sugars quite carefully over the next week. Monitor for worsening pain and fever. Physical exam does not reveal any evidence of thrombosed external hemorrhoid. fullness noted at 12 o'clock with soft external hemorrhoid. some fullness noted to the 3 o'clock position. There is a slight bluish discoloration at the anal verge but no palpable thrombosed hemorrhoid. no perineal pain. no significant erythema of the area. He has had prior incision and drainage at the anal verge.. Patient is asking for something different for pain. The hydrocodone tablet I gave him did not really help much. We will give him a little lidocaine jelly as well as oxycodone/acetaminophen tablets. Recommend contacting Dr. River's office tomorrow for reevaluation next week. No findings concerning for the for admission. Patient is comfortable with plan of care (EVERETTE LLOYD MD) Diagnostic Imaging Diagonstic Imaging: CT Comments [facility] [place] [place] NAME: [facility] REC#: [id number] PT STATUS: REG ER : 1975 PHYSICIAN: EVERETTE LLOYD MD ADMIT DATE: 01/10/22/ER Signed Date of Exam:01/10/22 CT PELVIS W EXAMINATION: CT pelvis with intravenous contrast. TECHNIQUE: Multiple contiguous axial images were obtained through the pelvis after the uneventful administration of intravenous contrast. All CT scans use one or more of the following dose optimizing techniques: automated exposure control, MA and/or KvP adjustment based on patient size and exam type or iterative reconstruction. HISTORY: Rectal pain COMPARISON: None available. FINDINGS: There is no bowel obstruction. The appendix is normal. There are a few scattered colonic diverticula. No free air, free fluid or suspicious lymphadenopathy. No aneurysm. The urinary bladder and prostate gland is unremarkable. Soft tissues are unremarkable. There are bilateral L5 pars defects. No acute fracture is seen within the pelvis. Significant inflammatory stranding or loculated fluid collection within the perianal soft tissues. IMPRESSION: 1. No focal abnormality within the perianal soft tissues. No other acute abnormality in the pelvis. Dictated by: Dictated on workstation # [id number] Dict: 01/10/22 1113 Trans: 01/10/22 1128 [facility] [id number] Interpreted by: COLETTE,HEIDI C DO Electronically signed by: HEIDI ALVARENGA DO 01/10/22 1128 (EVERETTE LLOYD MD) Departure Impression Primary Impression: Rectal or anal pain Additional Impression: External hemorrhoids Disposition: 01 HOME, SELF-CARE Condition: Stable Departure-Patient Inst. Decision time for Depature: 11:54 (EVERETTE LLOYD MD) Referrals: [facility] (PCP/Family) Primary Care Physician LYDIA RIVER DO Patient Instructions: Hemorrhoids Add. Discharge Instructions: Continue to use the Tucks pad times a day to the rectal area as needed for pain. I have prescribed you some Percocet for severe pain. Take 1 every 6 hours as needed for pain. This medication is quite addictive. Do not take it more than needed. Opiate medications can cause constipation. Be sure you are taking stool softeners twice a day. Anusol HC suppositories at night for the next 5 nights. Lidocaine gel to the rectum will help with pain as well. Use this every 4-6 hours. Monitor your blood sugars very closely because steroids can cause increased blood sugars. If you have worsening pain of the rectum, fever, drainage or any other concerning symptoms please come back to the emergency department for reevaluation. Scripts Oxycodone HCl/Acetaminophen (Percocet 5-325 mg Tablet) 1 Each Tablet 1 TAB PO Q6H PRN for PAIN-MODERATE (5-7) MDD 6 TABS, #12 TAB Prov: EVERETTE LLOYD MD 01/10/22 Hydrocortisone Acetate (Anusol-Hc) 25 Mg Supp.rect 25 MG RC HS for 5 Days, #5 SUPP.RECT Prov: EVERETTE LLOYD MD 01/10/22 Lidocaine HCl (Lidocaine HCl) 4 % Cream..g. 120 GM TP Q6H PRN for PAIN-SEVERE (8-10), #1 TUBE Prov: EVERETTE LLOYD MD 01/10/22 Work/School Note: Work Release Form Date Seen in the Emergency Department: Jan 10, 2022 Return to Work: Jan 12, 2022 Verification and Attestation of Medical Student E/M Service A medical student performed and documented this service in my presence. I reviewed and verified all information documented by the medical student and made modifications to such information, when appropriate. I personally performed the physical exam and medical decision making. Everette Lloyd, Jan 10, 2022,12:04 (EVERETTE LLOYD MD) Copy Copies To 1: LYDIA RIVER DO Copies To 2: LAURA ALSTON NATASHA Jan 10, 2022 10:27 EVERETTE LLOYD MD Jan 10, 2022 11:55
[2022-01-10] MEDS ORDERED: NS 100 ML (IVPB) BAG IV ONE (10:45)
[2022-01-10] MEDS ORDERED: IOHEXOL 350 MG/ML 100 ML (OMNIPAQUE 350) VIAL IV ONE (10:45)
[2022-01-10] MEDS ORDERED: HOLD METFORMIN - RECEIVED CONTRAST 20 ML VIAL IV SCH (10:45)
[2022-01-10] MEDS ORDERED: HYDROcodone/APAP 7.5 MG/325 MG (LORTAB, LORCET PLUS) TABLET PO ONE (10:45)
[2022-01-10 10:53] LABS: BASOPHILS % (AUTO) 1 % (0-10); EOSINOPHILS # (AUTO) 0.2 10^3/uL (0.0-0.3); EOSINOPHILS % (AUTO) 3 % (0-10); HEMATOCRIT 48 % (40-54); HEMOGLOBIN 15.4 g/dL (13.3-17.7); LYMPHOCYTES # (AUTO) 1.9 10^3/uL (1.0-4.0); LYMPHOCYTES % (AUTO) 32 % (12-44); MEAN CORPUSCULAR HEMOGLOBIN 27 pg (25-34); MEAN CORPUSCULAR HGB CONC 32 g/dL (32-36); MEAN CORPUSCULAR VOLUME 85 fL (80-99); MEAN PLATELET VOLUME 10.2 fL (9.0-12.2); MONOCYTES # (AUTO) 0.5 10^3/uL (0.0-1.0); MONOCYTES % (AUTO) 7 % (0-12); NEUTROPHILS # (AUTO) 3.4 10^3/uL (1.8-7.8); NEUTROPHILS % (AUTO) 56 % (42-75); PLATELET COUNT 186 10^3/uL (130-400); WHITE BLOOD COUNT 6.1 10^3/uL (4.3-11.0)
--- NOTE | 2022-01-10 11:17 | Diagnostic Imaging Report ---
EXAMINATION: CT pelvis with intravenous contrast. TECHNIQUE: Multiple contiguous axial images were obtained through the pelvis after the uneventful administration of intravenous contrast. All CT scans use one or more of the following dose optimizing techniques: automated exposure control, MA and/or KvP adjustment based on patient size and exam type or iterative reconstruction. HISTORY: Rectal pain COMPARISON: None available. FINDINGS: There is no bowel obstruction. The appendix is normal. There are a few scattered colonic diverticula. No free air, free fluid or suspicious lymphadenopathy. No aneurysm. The urinary bladder and prostate gland is unremarkable. Soft tissues are unremarkable. There are bilateral L5 pars defects. No acute fracture is seen within the pelvis. Significant inflammatory stranding or loculated fluid collection within the perianal soft tissues. IMPRESSION: 1. No focal abnormality within the perianal soft tissues. No other acute abnormality in the pelvis. Dictated by: Dictated on workstation # [id number]
[2022-01-10 11:20] LABS: CALCIUM 9.6 MG/DL (8.5-10.1); CREATININE SERUM 1.06 MG/DL (0.60-1.30); POTASSIUM 4.1 MMOL/L (3.6-5.0)
[2022-01-10] MEDS ORDERED: LIDO28.35 TP (11:59)
[2022-01-10] MEDS ORDERED: OXYC1TAB87 PO ×2 (11:59→13:14)
[2022-01-10] MEDS ORDERED: HYDR25SU28 RC ×2 (11:59→13:14)
[2022-01-10] MEDS ORDERED: LIDOCAINE JELLY 2% (XYLOCAINE) 5 ML TUBE TOP ONE (12:15)
[2022-01-10 12:42] VITALS: BP 124/100
[2022-01-10] MEDS ORDERED: LIDOCAINE JELLY 2% 6 ML SYRINGE TOP ONE (12:45)
[2022-01-10] MEDS ORDERED: LIDO120C7 TP (13:14)
== END 2022-01-10 12:43 | disposition home or self-care (01) ==
LOC: EDUNIT# 09:56 → ER 09:59
DX: K64.4 Residual hemorrhoidal skin tags (principal); Z28.310 Unvaccinated for COVID-19; Z86.16 Personal history of COVID-19; Z87.19 Personal history of other diseases of the digestive system; Z98.890 Other specified postprocedural states
CPT/HCPCS: 36415; 72193; 80048; 85025; 87040

== ENCOUNTER 2022-04-28 06:09 | Outpatient (CLI) | payer MEDICAID ==
[~2022-04-28] VITALS: Ht 172.7 cm; Wt 120.7 kg
[~2022-04-28 06:09] MED LIST changes: +HYDR25SU28 RC; +LIDO120C7 TP; +LIDO28.35 TP
[2022-04-28] MEDS ORDERED: LEVO75TA6 PO (15:09)
[2022-04-28] MEDS ORDERED: GLUC1AUT2 SQ (15:09)
[2022-04-28] MEDS ORDERED: LISI10TA25 PO (15:09)
[2022-04-28] MEDS ORDERED: ALLO100T PO (15:09)
[2022-04-28] MEDS ORDERED: METF-865 PO (15:10)
== END 2022-04-28 15:13 ==
LOC: PREOP 06:09
PROVIDERS: ATTEND Surgery
DX: Z01.818 Encounter for other preprocedural examination (principal)

== ENCOUNTER 2022-05-11 11:51 | Day surgery (SDC) | payer MEDICAID ==
[~2022-05-11] VITALS: Ht 172.7 cm; Wt 120.7 kg
[~2022-05-11 11:51] MED LIST changes: +GLUC1AUT2 SQ; +LEVO75TA6 PO
[2022-05-11] MEDS ORDERED: LACTATED RINGERS 1,000 ML IV STA (11:54)
[2022-05-11 12:00] VITALS: BP 128/83
[2022-05-11] MEDS ORDERED: ASPI-999 PO (12:04)
[2022-05-11] MEDS ORDERED: SEMA0.258 SQ (12:04)
[2022-05-11] MEDS ORDERED: OMEG100032 PO (12:04)
[2022-05-11] MEDS ORDERED: OMEP40CA6 PO (12:04)
[2022-05-11] MEDS ORDERED: DAPA1TAB5 PO (12:04)
--- NOTE | 2022-05-11 12:11 | Progress Note-Pre Operative ---
Pre-Operative Progress Note Date of Available H&P: Apr 19, 2022 Date H&P Reviewed: May 11, 2022 Time H&P Reviewed: 12:11 History & Physical: H&P Reviewed, Patient Examed, No changes noted Pre-Operative Diagnosis: Altered Bowel habits LYDIA RIVER DO May 11, 2022 12:11
[2022-05-11 13:55] VITALS: BP 102/64
--- NOTE | 2022-05-11 13:56 | Discharge Inst-Simple/Standard ---
Discharge Inst-Standard Patient Instructions/Follow Up Plan of Care/Instructions/FU: 2 weeks Zacarias Activity as Tolerated: Yes Discharge Diet: Regular Diet (high fiber) LYDIA RIVER DO May 11, 2022 13:56
--- NOTE | 2022-05-11 13:56 | Progress Note-Post Operative ---
Post-Operative Progess Note Surgeon (s)/Fuel House Attendant (s) Surgeon LYDIA RIVER DO Fuel House Attendant: na Pre-Operative Diagnosis Altered Bowel habits Post-Operative Diagnosis Diverticulosis Posterior Fissure Rectal polyp Procedure & Operative Findings Date of Procedure 05/11/22 Procedure Performed/Findings Colonoscopy with hot biopsy polypectomy x 1 Anesthesia Type per reflexologist Estimated Blood Loss Estimated blood loss (mL): none Specimens/Packing Specimens Removed Colon polyp x 1 LYDIA RIVER DO May 11, 2022 13:55
--- NOTE | 2022-05-11 13:59 | Anesthesia-General Post-Op ---
MAC Patient Condition Mental Status/LOC: Same as Preop Cardiovascular: Satisfactory Nausea/Vomiting: Absent Respiratory: Satisfactory Pain: Controlled Complications: Absent Post Op Complications Complications None Follow Up Care/Instructions Patient Instructions None needed. Anesthesiology Discharge Order Discharge Order Patient is doing well, no complaints, stable vital signs, no apparent adverse anesthesia problems. No complications reported per nursing. KRUNAL ALMANZAR CRNA May 11, 2022 13:59
[2022-05-11 14:00] VITALS: BP 103/65
[2022-05-11 14:20] VITALS: BP 103/65
--- NOTE | 2022-05-11 20:50 | OPERATIVE REPORT ---
DATE OF SERVICE: 05/11/2022 PREOPERATIVE DIAGNOSIS: Altered bowel function. POSTOPERATIVE DIAGNOSES: Diverticulosis, posterior fissure, rectal polyp. PROCEDURE: Colonoscopy with hot biopsy polypectomy x1. SURGEON: Lydia Adames DO ANESTHESIA: Per [employer]. ESTIMATED BLOOD LOSS: None. COMPLICATIONS: None. INDICATIONS: The patient is a 47-year-old male with altered bowel function. He understands risks and benefits of procedure and wished to proceed. Consent was signed and on chart. DESCRIPTION OF PROCEDURE: The patient was taken to endoscopy suite, placed in left lateral recumbent position. Timeout was performed. Digital rectal exam was performed noting a posterior anal fissure. No palpable polyps, masses or ulcerations. Scope was inserted in the rectum and advanced all the way to the cecum with minimal difficulty. Prep was adequate. Scope was slowly retracted back. No polyps, masses or ulcerations in the cecum, ascending, transverse, descending and sigmoid colon. Minimal diverticulosis was present in the sigmoid. Scope was then brought back into the rectum, where it was also retroflexed noting a polyp. Also small indention which questionable fistula from this area, but did not see any other inflammation or concerns. Hot biopsy polypectomy was performed of the polyp. Scope was returned to its normal position, slowly withdrawn until completely removed. The patient tolerated the procedure well without any complications, taken to recovery room in stable condition. RECOMMENDATIONS: The patient will need repeat colonoscopy in 5 years. Recommend high fiber diet due to diverticulosis, on stool softeners to keep the stool soft. I will reevaluate in 2 weeks. If still with fissure with used diltiazem cream. Further recommendation pending. Job ID: [id number] DocumentID: [id number] Dictated Date: 05/11/2022 13:59:37 [employer] Date: 05/11/2022 20:49:00 Dictated By: LYDIA ADAMES DO
== END 2022-05-11 14:20 | disposition home or self-care (01) ==
LOC: ENDO 11:51
PROVIDERS: ATTEND Surgery
DX: K62.1 Rectal polyp (principal); K57.30 Diverticulosis of large intestine without perforation or abscess without bleeding; K60.2 Anal fissure, unspecified; E11.9 Type 2 diabetes mellitus without complications; E66.01 Morbid (severe) obesity due to excess calories; Z79.84 Long term (current) use of oral hypoglycemic drugs; Z68.41 Body mass index [BMI] 40.0-44.9, adult; Z79.4 Long term (current) use of insulin; Z86.16 Personal history of COVID-19

== ENCOUNTER 2023-01-22 18:46 | Emergency (ER) | payer SELFPAY ==
[~2023-01-22] VITALS: Ht 173 cm; Wt 124.0 kg
[~2023-01-22 18:46] MED LIST changes: +ASPI-999 PO; +DAPA1TAB5 PO; +OMEG100032 PO; +SEMA0.258 SQ
[2023-01-22 19:05] VITALS: BP 136/96
--- NOTE | 2023-01-22 19:17 | ED General ---
General Chief Complaint: General Problems/Pain Stated Complaint: LOW OXYGEN LEVEL Source of Information: Patient Exam Limitations: No Limitations History of Present Illness Date Seen by Provider: Jan 22, 2023 Time Seen by Provider: 19:03 Initial Comments 47-year-old male presents the emergency department today from the [facility] clinic. He states he was shopping today with his and felt lightheaded, weak which is a feeling he typically gets when his blood sugars are low. When he arrived at [facility] clinic his blood sugar was in the mid 80s. He states typically when his blood sugars is low he feels this way. He reportedly found out today that he was not supposed to be taking his Trulicity in combination with his metformin combo pill and he had been taking Trulicity, most recent injection was this morning. He states they gave him some food and juice at the [facility] clinic and he felt back to normal. They reportedly checked his blood and he was told "everything was okay." These results are not available to us at this time. They were reportedly concerned because his pulse ox was reading 92%. He has no respiratory symptoms cough chest pain. At present he has no symptoms. All other systems reviewed and negative except documented per HPI. Voice recognition software was used to help create this chart Allergies and Home Medications Allergies Coded Allergies: No Known Drug Allergies (Unverified , 01/10/22) Patient Home Medication List Home Medication List Reviewed: Yes Albuterol Sulfate (Ventolin Hfa) 90 Mcg Hfa.aer.ad, 2 PUFF IH Q4H PRN for SHORTNESS OF BREATH, (Reported) Entered as Reported by: QUENTIN ORTEGA on 10/08/20 1533 Last Action: Last Taken Edited Allopurinol (Allopurinol) 100 Mg Tablet, 100 MG PO DAILY, (Reported) Entered as Reported by: JOHN PATRICIA on 04/28/22 1509 Last Action: Last Taken Edited Aspirin (Aspirin) 81 Mg Tab.chew, 81 MG PO DAILY, (Reported) Entered as Reported by: GISSELLE MATTHEWS on 05/11/22 1204 Last Action: Last Taken Edited Atorvastatin Calcium (Atorvastatin Calcium) 20 Mg Tablet, 20 MG PO DAILY, (Reported) Entered as Reported by: GISSELLE MATTHEWS on 12/10/21 1002 Last Action: Last Taken Edited Dapagliflozin/Metformin HCl (Xigduo Xr 10 mg-1,000 mg Tab) 10 Mg-1,000 Mg Tab.bp.24h, 1 EACH PO UD, (Reported) Entered as Reported by: GISSELLE MATTHEWS on 05/11/221203 Last Action: Last Taken Edited Levothyroxine Sodium (Levothyroxine Sodium) 75 Mcg Tablet, 75 MCG PO DAILY, (Reported) Entered as Reported by: JOHN PATRICIA on 04/28/221508 Last Action: Last Taken Edited Lisinopril (Lisinopril) 10 Mg Tablet, 10 MG PO DAILY, (Reported) Entered as Reported by: JOHN PATRICIA on 04/28/221508 Last Action: Last Taken Edited Chelan-3/Dha/Epa/Fish Oil (Fish Oil 1,000 mg Softgel) 1,000 Mg (120 Mg-180 Mg) Capsule, 1,000 MG PO DAILY, (Reported) Entered as Reported by: GISSELLE MATTHEWS on 05/11/221203 Last Action: Last Taken Edited Omeprazole (Omeprazole) 40 Mg Capsule.dr, 40 MG PO DAILY, (Reported) Entered as Reported by: GISSELLE MATTHEWS on 05/11/221203 Last Action: Last Taken Edited Semaglutide (Ozempic) 0.25 Mg/0.4 Ml Pen.injctr, 0.5 MG SQ WEEK, (Reported) Entered as Reported by: GISSELLE MATTHEWS on 05/11/221203 Last Action: Last Taken Edited Review of Systems Review of Systems Constitutional: see HPI Past Bpuyjos-Ubeubi-Eacnjh Hx Patient Social History Tobacco Use?: No Substance use?: No Alcohol Use?: Yes Alcohol Frequency: Once in a while Pt feels they are or have been: No Immunizations Up To Date PED Vaccines UTD: Yes First/Initial COVID19 Vaccinat: 09/23/20 Second COVID19 Vaccination Loco: 09/23/20 Third COVID19 Vaccination Date: 09/23/20 Seasonal Allergies Seasonal Allergies: No Past Medical History Surgery/Hospitalization HX: RENAL STONES, GOUT, PERIRECTAL ABCESS, NIDDM, HYPOTHRYOIDISM Surgeries: Yes (kidney stones) Ear Surgery, Renal Respiratory: No (HAD COVID on vent for 18 days 11/04) Cardiac: Yes Hypertension Neurological: Yes Concussion Reproductive Disorders: No Sexually Transmitted Disease: No HIV/AIDS: No Genitourinary: Yes Kidney Stones Gastrointestinal: No Musculoskeletal: Yes Gout Endocrine: Yes Hypothyroidsim, Diabetes, Non-Insulin dep HEENT: No Cancer: No Psychosocial: No Integumentary: No Blood Disorders: No Adverse Reaction/Blood Tranf: No Family Medical History No Pertinent Family Hx Physical Exam Vital Signs Capillary Refill : Height, Weight, BMI Height: 5'7.00" Weight: 250lbs. 0oz. 113.455807ep; 40.46 BMI Method:Stated General Appearance: No Apparent Distress, WD/WN HEENT: Normal ENT Inspection, Pharynx Normal Neck: Normal Inspection, Supple Respiratory: Chest Non Tender, Lungs Clear, Normal Breath Sounds, No Accessory Muscle Use, No Respiratory Distress Cardiovascular: Regular Rate, Rhythm, No Murmur, Normal Peripheral Pulses Gastrointestinal: No Organomegaly, Non Tender, Soft Extremity: Normal Capillary Refill, Normal Inspection, Normal Range of Motion, Non Tender Neurologic/Psychiatric: Alert, Oriented x3, No Motor/Sensory Deficits, Normal Mood/Affect, housing inspectors II-XII Norm as Tested Skin: Normal Color, Warm/Dry Procedures/Interventions Date of ETT Placement: Oct 08, 2020 Suture Size: 5-0 Progress/Results/Core Measures Suspected Sepsis SIRS Temperature: Pulse: Respiratory Rate: Blood Pressure / Mean: Results/Orders Vital Signs/I&O Capillary Refill : Departure Communication (Admissions) Discussed with patient that the results of his labs were not available to me at this time and that I was happy to recheck these to ensure no significant emergent abnormalities. He states he is feeling back to normal. His oxygen saturation has been 96% on room air since has been here and he has absolutely no respiratory symptoms. He had an EKG at the walk-in clinic which was also reportedly normal. Again none of these are available to me at this time. He has sinus rhythm with a normal rate on the bedside monitor here. He is asymptomatic. I do not believe there is any indication for further testing at this time. He will be discharged home with supportive care. Impression Primary Impression: Encounter for medical screening examination Disposition: HOME, SELF-CARE Condition: Stable Departure-Patient Inst. Referrals: [facility] [place] (PCP/Family) Primary Care Physician Add. Discharge Instructions: Have your glucometer calibrated as recommended. Return to the emergency department for any severe concerns. Follow-up with your primary doctor for any nonemergent needs. All discharge instructions reviewed with patient and/or family. Voiced understanding. KEVIN GREEN DO Jan 22, 2023 19:17
== END 2023-01-22 19:20 | disposition home or self-care (01) ==
LOC: EDUNIT# 18:46 → ER 18:49
DX: R42 Dizziness and giddiness (principal); E11.9 Type 2 diabetes mellitus without complications; Z79.84 Long term (current) use of oral hypoglycemic drugs
CPT/HCPCS: 99282